=== PATIENT | male | born 1945 | race Caucasian/White ===

== ENCOUNTER → 2017-04-16 | Outpatient (CLI) | payer MEDICARE ==
--- NOTE | 2017-04-17 08:06 | XR ---
EXAMINATION TYPE: XR chest 2V DATE OF EXAM: 04/16/2017 COMPARISON: NONE TECHNIQUE: PA and lateral views submitted. HISTORY: COPD FINDINGS: Subsegmental changes at the left lung base. No pneumothorax or overt failure. Hypertrophic and degene rative change of the spine. IMPRESSION: 1. Left basilar linear atelectasis favored over infiltrate.
== END | disposition home or self-care (01) ==
LOC: RADXRYALE 10:41
PROVIDERS: ATTEND Family Medicine
DX: J98.11 Atelectasis (principal)
CPT/HCPCS: 71020

== ENCOUNTER → 2017-11-02 | Outpatient (CLI) | payer MEDICARE ==
[2017-11-02 13:08] LABS: Blood Urea Nitrogen 20 mg/dL (9-20)
--- NOTE | 2017-11-02 15:06 | CT ---
EXAMINATION TYPE: CT abdomen pelvis w con DATE OF EXAM: 11/02/2017 COMPARISON: NONE HISTORY: Retroperitoneal bleeding and hemoperitoneum per order. CT DLP: 1492 mGycm, Automated Exposure Control for Dose Reduction was Utilized. CONTRAST: CT scan of the abdomen and pelvis is performed with oral and with IV Contrast, patient injected with 100 mL of Omnipaque 300. FINDINGS: LUNG BASES: There is emphysematous change in both bases. There is oligemia or diminished vascular per fusion posterior left lung base. There is herniated lung laterally intercostal space axial image 10. LIVER/GB: No significant abnormality is appreciated. PANCREAS: No significant abnormality is seen. SPLEEN: No significant abnormality is seen. ADRENALS: No significant abnormality is seen. KIDNEYS: No significant abnormality is seen. BOWEL: There is small hiatal hernia. The oral contrast reaches level of distal ileum. There is no emerald picious small or large bowel dilatation. Normal-appearing appendix is seen inferiorly from cecum. The re is some prominence of fecal material in the right and proximal transverse colon. There are diverti cula in the sigmoid colon without CT evidence for acute diverticulitis. There is some prominence of f ecal material in the rectum. PROSTATE/SEMINAL VESICLES: Prostate gland is upper limits of normal size bulging on bladder base, cor relate for underlying BPH. LYMPH NODES: No greater than 1cm abdominal or pelvic lymph nodes are appreciated. OSSEOUS STRUCTURES: Underlying scoliosis is present. There is moderate to severe multilevel spurring in the thoracolumbar spine. There is multilevel vacuum disc phenomenon and disc space narrowing. Ther e is grade 1 anterolisthesis L4 on L5. OTHER: There is small sized fat-containing left inguinal hernia. There is mild to moderate calcified atherosclerotic change of the infrarenal abdominal aorta extending into iliac branch vessels. IMPRESSION: No suspicious fluid collection to suggest hematoma is identified.
== END | disposition home or self-care (01) ==
LOC: RADCTMAIN 12:26
PROVIDERS: ATTEND Internal Medicine Sleep Medicine
DX: K66.1 Hemoperitoneum (principal)
CPT/HCPCS: 82565; 84520; 74177; 36415; Q9967

== ENCOUNTER → 2017-11-12 | Outpatient (CLI) | payer MEDICARE ==
--- NOTE | 2017-11-12 10:02 | ECHOF ---
Referral Reason:SOB R06.02,R0782 Intercostal Pain,I10 Hypertension MEASUREMENTS -------- HEIGHT: 175.3 cm WEIGHT: 91.6 kg BP: 114/58 IVSd: 1.2 cm (0.6 - 1.1) LVIDd: 4.2 cm (3.9 - 5.3) LVPWd: 1.0 cm (0.6 - 1.1) IVSs: 1.7 cm LVIDs: 2.3 cm LVPWs: 1.7 cm IVSd: 3.4 cm (0.6 - 1.1) Ao Diam: 3.4 cm (2.0 - 3.7) AV Cusp: 2.1 cm (1.5 - 2.6) LA Diam: 3.9 cm (2.7 - 3.8) MV EXCURSION: 18.395 mm (> 18.000) MV EF SLOPE: 128 mm/s (70 - 150) EPSS: 0.3 cm MV E Zev: 0.55 m/s MV DecT: 192 ms MV A Zev: 0.77 m/s MV E/A Ratio: 0.72 RAP: 5.00 mmHg RVSP: 16.18 mmHg FINDINGS -------- Sinus rhythm. This was a technically good study. The left ventricular size is normal. There is borderline concentric left ventricular hypertrophy. Overall left ventricular systolic function is normal with, an EF between 55 - 60 %. The right ventricle is normal in size and function. The left atrium is normal in size. The right atrium is normal in size. Aortic valve is trileaflet and is mildly thickened. The mitral valve leaflets are mildly thickened. There is trace mitral regurgitation. Trace tricuspid regurgitation present. The right ventricular systolic pressure, as measured by Dopp ler, is 16.18mmHg. Pulmonic valve appears structurally normal. The aortic root size is normal. The pericardium is normal. CONCLUSIONS -------- 1. Sinus rhythm. 2. This was a technically good study. 3. The left ventricular size is normal. 4. There is borderline concentric left ventricular hypertrophy. 5. Overall left ventricular systolic function is normal with, an EF between 55 - 60 %. 6. The right ventricle is normal in size and function. 7. The left atrium is normal in size. 8. The right atrium is normal in size. 9. Aortic valve is trileaflet and is mildly thickened. 10. The mitral valve leaflets are mildly thickened. 11. There is trace mitral regurgitation. 12. Trace tricuspid regurgitation present. 13. The right ventricular systolic pressure, as measured by Doppler, is 16.18mmHg. 14. Pulmonic valve appears structurally normal. 15. The aortic root size is normal. 16. The pericardium is normal. [employer]ORE MANAGER: Estefania Kowalski RDCS
== END | disposition home or self-care (01) ==
LOC: RADECHMAIN 08:14
PROVIDERS: ATTEND Family Medicine
DX: I08.0 Rheumatic disorders of both mitral and aortic valves (principal); I10 Essential (primary) hypertension
CPT/HCPCS: 93306

== ENCOUNTER → 2017-11-16 | Outpatient (CLI) | payer MEDICARE ==
--- NOTE | 2017-11-16 15:54 | XR ---
EXAMINATION TYPE: XR ribs LT w pa chest xray DATE OF EXAM: 11/16/2017 COMPARISON: NONE HISTORY: Lower left rib pain TECHNIQUE: Frontal view of the chest and 4 views of the left ribs submitted FINDINGS: Hyperinflation noted correlate for COPD. There is a vague area of nodularity in the left lo wer lobe. No overt failure. No sizable pneumothorax. Rib cage appears intact. Hypertrophic and degenerative change of the spine. IMPRESSION: 1. No acute displaced rib fracture 2. CT of the chest recommended for area of nodular density left lower lobe.
== END | disposition home or self-care (01) ==
LOC: RADXRYALE 15:37
PROVIDERS: ATTEND Family Medicine
DX: R91.1 Solitary pulmonary nodule (principal); R07.82 Intercostal pain

== ENCOUNTER 2017-11-18 11:48 | Inpatient (IN) | payer MEDICARE ==
[2017-11-18] MEDS ORDERED: SODIUM CHLORIDE 0.9% 1,000 ML IV STA (11:58)
[2017-11-18] MEDS ORDERED: ALBUTEROL NEBULIZED 2.5 MG/3 ML INHALATION STA (11:58)
[2017-11-18] MEDS ORDERED: methylPREDNISolone SOD SUCCI 125 MG/2 ML VIAL IV STA (11:58)
[2017-11-18] MEDS ORDERED: SODIUM CHLORIDE 0.9% 500 ML IV STA (11:58)
[2017-11-18] MEDS ORDERED: IPRATROPIUM 0.5 MG/2.5 ML NEBU INHALATION STA (11:58)
[2017-11-18] MEDS ORDERED: MORPHINE SULFATE 2 MG/ML SYRINGE IVP ONE ×2 (12:12→15:25)
[2017-11-18] MEDS ORDERED: RX INFO: IV CONTRAST WAS GIVEN 1 EACH MISC MISCELLANE PRN (12:17)
--- NOTE | 2017-11-18 12:21 | XR ---
EXAMINATION TYPE: XR chest 1V portable DATE OF EXAM: 11/18/2017 HISTORY: Pain. REFERENCE: NONE. FINDINGS: The heart is mildly prominent. Is atelectatic change at the lung bases. Pleural spaces are clear. IMPRESSION: 1. MILD CARDIOMEGALY. 2. BIBASILAR ATELECTASIS.
[2017-11-18 12:24] LABS: Basophils % (A) 1 %; Eosinophils # (A) 0.3 k/uL (0-0.7); Eosinophils % (A) 4 %; HCT 42.7 % (39.0-53.0); HGB 14.1 gm/dL (13.0-17.5); Lymphocytes # (A) 1.1 k/uL (1.0-4.8); Lymphocytes % (A) 13 %; MCH 30.2 pg (25.0-35.0); MCV 91.4 fL (80.0-100.0); Monocytes # (A) 0.5 k/uL (0-1.0); Monocytes % (A) 6 %; Neutrophils # (A) 6.4 k/uL (1.3-7.7); Neutrophils % (A) 74 %; Platelet Count 400 k/uL (150-450); RBC 4.67 m/uL (4.30-5.90); RDW 13.7 % (11.5-15.5); WBC 8.6 k/uL (3.8-10.6)
[2017-11-18 12:31] LABS: Partial Thromboplastin Time 24.9 sec (22.0-30.0); Prothrombin Time 9.8 sec (9.0-12.0)
[2017-11-18 12:36] LABS: Albumin 3.7 g/dL (3.5-5.0); Anion Gap 11 mmol/L; Calcium 9.6 mg/dL (8.4-10.2); Carbon Dioxide 23 mmol/L (22-30); Chloride 104 mmol/L (98-107); Glucose 101 mg/dL (74-99); Sodium 138 mmol/L (137-145); Total Bilirubin 0.7 mg/dL (0.2-1.3); Total Protein 6.6 g/dL (6.3-8.2)
[2017-11-18 12:39] LABS: ALT 50 U/L (21-72); AST 40 U/L (17-59); Alkaline Phosphatase 66 U/L (38-126); Blood Urea Nitrogen 14 mg/dL (9-20); Potassium 4.7 mmol/L (3.5-5.1)
[2017-11-18 12:51] LABS: Creatine Kinase 73 U/L (55-170)
[2017-11-18 13:04] LABS: Creatine Kinase MB 1.6 ng/mL (0.0-2.4); Troponin I <0.012 ng/mL (0.000-0.034)
--- NOTE | 2017-11-18 13:04 | ED ---
General Adult HPI - General Chief complaint: Shortness of Breath Stated complaint: Sob Time Seen by Provider: 11/18/17 11:57 Source: patient, family, RN notes reviewed, old records reviewed Mode of arrival: wheelchair Limitations: no limitations - History of Present Illness Initial comments: This is a 72-year-old male the ER for evaluation of shortness of breath, pain chest pain left-sided flank pain. Patient has been history of COPD. History of lung disease. Patient coming to ER today for evaluation regards to cough congestion shortness of breath and pain. Patient has had multiple ER visits and outpatient evaluations in regards this pain as of recent with no found diagnosis. Patient and states patient's or significantly increasing and progressively worsening. Denies fever denies chest pain - Related Data Home Medications Medication Instructions Recorded Confirmed Albuterol Inhaler [Ventolin Hfa 2 puff INHALATION RT-Q6H PRN 11/18/17 11/18/17 Inhaler] Budesonide [Pulmicort] 0.5 mg INHALATION RT-BID 11/18/17 11/18/17 Finasteride [Proscar] 5 mg PO HS 11/18/17 11/18/17 HYDROcodone/APAP 10-325MG [[place] 1 tab PO QID PRN 11/18/17 11/18/17 10-325] Indapamide [Lozol] 1.25 mg PO DAILY 11/18/17 11/18/17 Ipratropium-Albuterol Nebulize 3 ml INHALATION RT-QID 11/18/17 11/18/17 [Duoneb 0.5 mg-3 mg/3 ml Soln] LORazepam [Ativan] 0.5 mg PO HS 11/18/17 11/18/17 Lisinopril [Zestril] 10 mg PO DAILY 11/18/17 11/18/17 Lovastatin [Mevacor] 10 mg PO HS 11/18/17 11/18/17 Meclizine [Antivert] 25 mg PO DAILY 11/18/17 11/18/17 Meloxicam [Mobic] 15 mg PO DAILY PRN 11/18/17 11/18/17 Montelukast [Singulair] 10 mg PO HS 11/18/17 11/18/17 Omeprazole 20 mg PO DAILY 11/18/17 11/18/17 Tamsulosin HCl [Flomax] 0.4 mg PO HS 11/18/17 11/18/17 Allergies Allergy/AdvReac Type Severity Reaction Status Date / Time No Known Allergies Allergy Verified 11/18/17 12:37 Review of Systems ROS Statement: Those systems with pertinent positive or pertinent negative responses have been documented in the HPI. ROS Other: All systems not noted in ROS Statement are negative. Past Medical History Past Medical History: COPD, Hearing Disorder / Deafness, Hyperlipidemia, Hypertension, Prostate Disorder Additional Past Medical History / Comment(s): emphysema, menieres disease History of Any Multi-Drug Resistant Organisms: None Reported Past Surgical History: Hernia Repair, Tonsillectomy Additional Past Surgical History / Comment(s): hernia X2, cyst on hand, right foot Past Psychological History: No Psychological Hx Reported Smoking Status: Former smoker Past Alcohol Use History: None Reported Past Drug Use History: None Reported General Exam Limitations: no limitations Course Vital Signs 11/18/17 11/18/17 11/18/17 11:51 12:30 12:53 Temperature 99.0 F Pulse Rate 91 73 77 Respiratory 18 Rate Blood Pressure 170/77 O2 Sat by Pulse 92 L Oximetry 11/18/17 11/18/17 11/18/17 12:55 14:00 15:41 Temperature Pulse Rate 84 84 86 Respiratory 16 16 16 Rate Blood Pressure 155/80 160/94 143/91 O2 Sat by Pulse 95 95 92 L Oximetry - Reevaluation(s) Reevaluation #1: 11/18/17 13:03 Multiple records are reviewed patient's prior imaging, including CT, echo, CT abdomen pelvis, etc. Reevaluation #2: 11/18/17 15:49 Patient does have initial evaluation by general surgery who thinks this is a cardiothoracic surgery case did speak with Dr. Dumont, will value patient in the morning EKG Findings - EKG Comments: EKG Findings:: EKG shows sinus rhythm rate of 81, AK 140, QRS 92, QTc 448 Medical Decision Making - Medical Decision Making 69 female the ER for evaluation of abdominal pain. Positive diaphragmatic hernia. Patient be admitted for cardiac and cardiothoracic surgery evaluation - Lab Data Result diagrams: 11/18/17 12:10 11/18/17 12:10 Lab Results 11/18/17 11/18/17 11/18/17 Range/Units 12:10 12:10 12:10 WBC 8.6 (3.8-10.6) k/uL RBC 4.67 (4.30-5.90) m/uL Hgb 14.1 (13.0-17.5) gm/dL Hct 42.7 (39.0-53.0) % MCV 91.4 (80.0-100.0) fL MCH 30.2 (25.0-35.0) pg MCHC 33.0 (31.0-37.0) g/dL RDW 13.7 (11.5-15.5) % Plt Count 400 (150-450) k/uL Neutrophils % 74 % Lymphocytes % 13 % Monocytes % 6 % Eosinophils % 4 % Basophils % 1 % Neutrophils # 6.4 (1.3-7.7) k/uL Lymphocytes # 1.1 (1.0-4.8) k/uL Monocytes # 0.5 (0-1.0) k/uL Eosinophils # 0.3 (0-0.7) k/uL Basophils # 0.0 (0-0.2) k/uL PT (9.0-12.0) sec INR (<1.2) APTT (22.0-30.0) sec Sodium 138 (137-145) mmol/L Potassium 4.7 (3.5-5.1) mmol/L Chloride 104 (98-107) mmol/L Carbon Dioxide 23 (22-30) mmol/L Anion Gap 11 mmol/L BUN 14 (9-20) mg/dL Creatinine 0.80 (0.66-1.25) mg/dL Est GFR (MDRD) Af Amer >60 (>60 ml/min/1.73 sqM) Est GFR (MDRD) Non-Af >60 (>60 ml/min/1.73 sqM) Glucose 101 H (74-99) mg/dL Calcium 9.6 (8.4-10.2) mg/dL Total Bilirubin 0.7 (0.2-1.3) mg/dL AST 40 (17-59) U/L ALT 50 (21-72) U/L Alkaline Phosphatase 66 (38-126) U/L Total Creatine Kinase 73 (55-170) U/L CK-MB (CK-2) 1.6 (0.0-2.4) ng/mL CK-MB (CK-2) Rel Index 2.2 Troponin I <0.012 (0.000-0.034) ng/mL Total Protein 6.6 (6.3-8.2) g/dL Albumin 3.7 (3.5-5.0) g/dL Influenza Type A RNA (Not Detectd) Influenza Type B (PCR) (Not Detectd) 11/18/17 11/18/17 Range/Units 12:10 12:10 WBC (3.8-10.6) k/uL RBC (4.30-5.90) m/uL Hgb (13.0-17.5) gm/dL Hct (39.0-53.0) % MCV (80.0-100.0) fL MCH (25.0-35.0) pg MCHC (31.0-37.0) g/dL RDW (11.5-15.5) % Plt Count (150-450) k/uL Neutrophils % % Lymphocytes % % Monocytes % % Eosinophils % % Basophils % % Neutrophils # (1.3-7.7) k/uL Lymphocytes # (1.0-4.8) k/uL Monocytes # (0-1.0) k/uL Eosinophils # (0-0.7) k/uL Basophils # (0-0.2) k/uL PT 9.8 (9.0-12.0) sec INR 1.0 (<1.2) APTT 24.9 (22.0-30.0) sec Sodium (137-145) mmol/L Potassium (3.5-5.1) mmol/L Chloride (98-107) mmol/L Carbon Dioxide (22-30) mmol/L Anion Gap mmol/L BUN (9-20) mg/dL Creatinine (0.66-1.25) mg/dL Est GFR (MDRD) Af Amer (>60 ml/min/1.73 sqM) Est GFR (MDRD) Non-Af (>60 ml/min/1.73 sqM) Glucose (74-99) mg/dL Calcium (8.4-10.2) mg/dL Total Bilirubin (0.2-1.3) mg/dL AST (17-59) U/L ALT (21-72) U/L Alkaline Phosphatase (38-126) U/L Total Creatine Kinase (55-170) U/L CK-MB (CK-2) (0.0-2.4) ng/mL CK-MB (CK-2) Rel Index Troponin I (0.000-0.034) ng/mL Total Protein (6.3-8.2) g/dL Albumin (3.5-5.0) g/dL Influenza Type A RNA Not Detected (Not Detectd) Influenza Type B (PCR) Not Detected (Not Detectd) - Radiology Data Radiology results: report reviewed (CT chest abdomen Pelvis is positive for hernia), image reviewed Disposition Clinical Impression: Diaphragmatic hernia, Acute exacerbation of chronic obstructive airways disease Disposition: ADMITTED IP TO THIS HOSP Condition: Fair Referrals: Matt Moss MD [Primary Care Provider] - 1-2 days
--- NOTE | 2017-11-18 14:22 | CT ---
EXAMINATION TYPE: CT ChestAbdPelvis w con DATE OF EXAM: 11/18/2017 COMPARISON: Previous study dated 11/02/2017 HISTORY: SOB/Lt lateral chest wall mass CT DLP: 1431.4 mGycm Automated exposure control for dose reduction was used. TECHNIQUE: Helical acquisition through the abdomen and pelvis was obtained without oral contrast but following the intravenous administration of 100 mL of Omnipaque 300. The data was formatted in the a xial, coronal and sagittal projections. FINDINGS: There are emphysematous changes throughout the lungs. There is diffuse, patchy groundglass opacity which may reflect ongoing alveolitis. There is atelectasis at the left lung base. There is a small amount of fluid loculated the left lung base. This represents an interval change. Th ere is no significant axillary, mediastinal or hilar adenopathy. There is no pericardial fluid. The h eart is not enlarged. Within the abdomen, the liver, spleen and gallbladder are normal. Both adrenal glands are normal. Both kidneys demonstrate function and appear morphologically normal. The pancreas is unremarkable. There is no significant retroperitoneal, iliac or inguinal adenopathy. The bladder is unremarkable. There is extensive diverticular change in the left side of the colon without radiographic evidence of diverticulitis. The appendix is normal. Small bowel loops are normal in caliber. There is a spiculated hernia in place on the left. There is large bowel peaking into this. There is s ome inflammatory change within the hernial space. This was not present with certainty on the previous study. There is no free fluid and no free air. There is degenerative disc disease, facet arthropathy and hypertrophic spondylosis within the spine. IMPRESSION: 1. LARGE SPICULATED HERNIA ON THE LEFT WITH LARGE BOWEL PEAKING INTO IT AND INFLAMMATORY CHANGES IN T HE CONTAINED MESENTERIC FAT. THIS IS AN INTERVAL CHANGE. 2. EMPHYSEMATOUS CHANGE THROUGHOUT THE LUNGS WITH PATCHY GROUNDGLASS OPACITY LIKELY REPRESENTING ONGO ING ALVEOLITIS. 3. UNCOMPLICATED DIVERTICULOSIS OF THE LEFT SIDE OF THE COLON. 4. INTERVAL DEVELOPMENT OF A SMALL LOCULATED FLUID COLLECTION IN THE LEFT PLEURAL SPACE. 5. DEGENERATIVE CHANGES WITHIN THE SPINE.
[2017-11-18] MEDS: MORPHINE SULFATE 2 MG/ML SYRINGE IVP PRN (15:37)
[2017-11-18] MEDS ORDERED: SODIUM CHLORIDE 0.9% 1,000 ML IV ONE (15:47)
[2017-11-18] MEDS ORDERED: IPRATROPIUM-ALBUTEROL 3 ML NEB INHALATION STA (15:48)
[2017-11-18 16:53] VITALS: BMI 29.1
[2017-11-18] MEDS: IPRATROPIUM-ALBUTEROL 3 ML NEB INHALATION SCH ×2 (17:02→21:08)
[2017-11-18] MEDS: BUDESONIDE 0.5 MG/2 ML NEBU INHALATION SCH (21:08)
[2017-11-18] MEDS: FAMOTIDINE 20 MG TAB PO SCH (21:58)
[2017-11-18] MEDS: FINASTERIDE 5 MG TAB PO SCH (21:58)
[2017-11-18] MEDS: TAMSULOSIN 0.4 MG CAP.ER.24H PO SCH (21:58)
[2017-11-18] MEDS: ATORVASTATIN 10 MG TAB PO SCH (21:58)
[2017-11-18] MEDS: MONTELUKAST 10 MG TAB PO SCH (21:58)
[2017-11-18] MEDS: BENZONATATE 100 MG CAP PO SCH (21:58)
[2017-11-18] MEDS: HEPARIN SODIUM,PORCINE 5,000 UNIT/ML 1 ML VIAL SQ SCH (21:59)
[2017-11-18] MEDS: LORazepam 0.5 MG TAB PO SCH (22:36)
[2017-11-18] MEDS: methylPREDNISolone SOD SUCCI 125 MG/2 ML VIAL IV SCH (23:47)
[2017-11-19] MEDS: IPRATROPIUM-ALBUTEROL 3 ML NEB INHALATION SCH ×7 (00:26→23:45)
--- NOTE | 2017-11-19 00:30 | P.GSCN ---
History of Present Illness Consult date: 11/18/17 Reason for Consult: Hernia History of present illness: This 72-year-old male with a long-standing history of emphysema COPD. He has a chronic cough. He stated he was coughing yesterday when he felt pain on his left side and increased shortness of breath. He then began to feel a mass on his left thorax and flank. This pain is exacerbated when taking a deep breath. He's never had this problem before. Past Medical History Past Medical History: COPD, Hearing Disorder / Deafness, Hyperlipidemia, Hypertension, Prostate Disorder Additional Past Medical History / Comment(s): emphysema, menieres disease History of Any Multi-Drug Resistant Organisms: None Reported Past Surgical History: Hernia Repair, Tonsillectomy Additional Past Surgical History / Comment(s): hernia X2, cyst on hand, right foot Past Anesthesia/Blood Transfusion Reactions: No Reported Reaction Past Psychological History: No Psychological Hx Reported Smoking Status: Former smoker Past Alcohol Use History: None Reported Past Drug Use History: None Reported Medications and Allergies Home Medications Medication Instructions Recorded Confirmed Type Albuterol Inhaler [Ventolin Hfa 2 puff INHALATION RT-Q6H PRN 11/18/17 11/18/17 History Inhaler] Benzonatate [Benzonatate [place]] 200 mg PO TID 11/18/17 11/18/17 History Budesonide [Pulmicort] 0.5 mg INHALATION RT-BID 11/18/17 11/18/17 History Finasteride [Proscar] 5 mg PO HS 11/18/17 11/18/17 History HYDROcodone/APAP 10-325MG [[place] 1 tab PO QID PRN 11/18/17 11/18/17 History 10-325] Indapamide [Lozol] 1.25 mg PO DAILY 11/18/17 11/18/17 History Ipratropium-Albuterol Nebulize 3 ml INHALATION RT-QID 11/18/17 11/18/17 History [Duoneb 0.5 mg-3 mg/3 ml Soln] LORazepam [Ativan] 0.5 mg PO HS 11/18/17 11/18/17 History Lisinopril [Zestril] 10 mg PO DAILY 11/18/17 11/18/17 History Lovastatin [Mevacor] 10 mg PO HS 11/18/17 11/18/17 History Meclizine [Antivert] 25 mg PO DAILY 11/18/17 11/18/17 History Meloxicam [Mobic] 15 mg PO DAILY PRN 11/18/17 11/18/17 History Montelukast [Singulair] 10 mg PO HS 11/18/17 11/18/17 History Omeprazole 20 mg PO DAILY 11/18/17 11/18/17 History Tamsulosin HCl [Flomax] 0.4 mg PO HS 11/18/17 11/18/17 History Allergies Allergy/AdvReac Type Severity Reaction Status Date / Time No Known Allergies Allergy Verified 11/18/17 12:37 Surgical - Exam Osteopathic Statement: *. No significant issues noted on an osteopathic structural exam other than those noted in the History and Physical/Consult. Vital Signs Temp Pulse Resp BP Pulse Ox 99.0 F 91 18 170/77 92 L 11/18/17 11:51 11/18/17 11:51 11/18/17 11:51 11/18/17 11:51 11/18/17 11:51 - General well developed, well nourished, no distress - Eyes PERRL - Neck trachea midline - Respiratory Nonlabored breathing, left chest wall with herniation. Tender to palpation. - Cardiovascular Rhythm: regular - Abdomen Abdomen: soft, non tender - Integumentary no rash - Neurologic normal coordination, normal sensation - Psychiatric oriented to time, oriented to person, oriented to place Results - Labs 11/18/17 12:10 11/18/17 12:10 Abnormal Lab Results - Last 24 Hours (Table) 11/18/17 Range/Units 12:10 Glucose 101 H (74-99) mg/dL Diabetes panel 11/18/17 Range/Units 12:10 Sodium 138 (137-145) mmol/L Potassium 4.7 (3.5-5.1) mmol/L Chloride 104 (98-107) mmol/L Carbon Dioxide 23 (22-30) mmol/L BUN 14 (9-20) mg/dL Creatinine 0.80 (0.66-1.25) mg/dL Glucose 101 H (74-99) mg/dL Calcium 9.6 (8.4-10.2) mg/dL AST 40 (17-59) U/L ALT 50 (21-72) U/L Alkaline Phosphatase 66 (38-126) U/L Total Protein 6.6 (6.3-8.2) g/dL Albumin 3.7 (3.5-5.0) g/dL Calcium panel 11/18/17 Range/Units 12:10 Calcium 9.6 (8.4-10.2) mg/dL Albumin 3.7 (3.5-5.0) g/dL Pituitary panel 11/18/17 Range/Units 12:10 Sodium 138 (137-145) mmol/L Potassium 4.7 (3.5-5.1) mmol/L Chloride 104 (98-107) mmol/L Carbon Dioxide 23 (22-30) mmol/L BUN 14 (9-20) mg/dL Creatinine 0.80 (0.66-1.25) mg/dL Glucose 101 H (74-99) mg/dL Calcium 9.6 (8.4-10.2) mg/dL Adrenal panel 11/18/17 Range/Units 12:10 Sodium 138 (137-145) mmol/L Potassium 4.7 (3.5-5.1) mmol/L Chloride 104 (98-107) mmol/L Carbon Dioxide 23 (22-30) mmol/L BUN 14 (9-20) mg/dL Creatinine 0.80 (0.66-1.25) mg/dL Glucose 101 H (74-99) mg/dL Calcium 9.6 (8.4-10.2) mg/dL Total Bilirubin 0.7 (0.2-1.3) mg/dL AST 40 (17-59) U/L ALT 50 (21-72) U/L Alkaline Phosphatase 66 (38-126) U/L Total Protein 6.6 (6.3-8.2) g/dL Albumin 3.7 (3.5-5.0) g/dL - Imaging CT scan - abdomen: report reviewed, image reviewed CT scan - chest: report reviewed, image reviewed CT scan - pelvis: report reviewed, image reviewed Assessment and Plan Assessment: Complex left posterior lateral diaphragmatic hernia with herniation of the left lower lobe of the lung Plan: No plans for acute surgical intervention per general surgery. Will defer to cardiothoracic surgery for further recommendations.
[2017-11-19] MEDS: MORPHINE SULFATE 2 MG/ML SYRINGE IVP PRN ×3 (01:19→20:35)
[2017-11-19] MEDS: LEVOFLOXACIN 500MG-D5W PMX 500 MG in DEXTROSE/WATER 1 100ML.BAG IVPB SCH (02:34)
[2017-11-19] MEDS: SODIUM CHLORIDE 0.9% 1,000 ML IV SCH ×2 (02:37→20:31)
[2017-11-19] MEDS: methylPREDNISolone SOD SUCCI 125 MG/2 ML VIAL IV SCH ×3 (05:37→17:25)
[2017-11-19] MEDS: BUDESONIDE 0.5 MG/2 ML NEBU INHALATION SCH ×2 (07:14→19:13)
--- NOTE | 2017-11-19 07:30 | CONS ---
CONSULTATION Sushant Amaral is a 72-year-old male with a history of asthma with COPD, who comes into the ER with left-sided chest pain. This has been going on since October 25 when he developed a cough. He has been on systemic steroids at least thrice in the last 3 to 4 months because of COPD with asthma with exacerbation. He has had multiple episodes of chest pain and subsequently came into the ED for further evaluation. He denies any fever, chills or riders, but has been having cough and dyspnea. PAST MEDICAL HISTORY: His past medical history is positive for severe asthma with COPD, Meniere's disease, tonsillectomy, previous hernia repair. SOCIAL HISTORY: Patient used to smoke cigarettes about a pack of cigarettes per day. He quit smoking and is not a current smoker at this time. He does not drink alcohol excessively. FAMILY HISTORY: Positive for asthma in his mother. MEDICATIONS: Medications prior to admission were lisinopril, Mevacor, Antivert, Mobic, Singulair, omeprazole, tamsulosin, albuterol, Pulmicort, Proscar, hydrocodone with acetaminophen, Lozol, and albuterol with ipratropium in the nebulizer. ALLERGIES: The patient has no known drug allergies, but is apparently allergic to MOLD on previous allergy testing. REVIEW OF SYSTEMS: Noncontributory. PHYSICAL EXAMINATION: On physical examination, patient is sitting in a chair. He is in no respiratory distress. He is somewhat anxious. His blood pressure is 156/77, respiratory rate is 16, pulse rate 79, temperature 98.1, O2 saturation on 2 L by nasal cannula is 96%. HEENT reveals pupils are equal. Chest reveals decreased breath sounds with prolonged expiration. No clear wheeze except on forced expiration. Cardiovascular system reveals an S1, S2. Abdomen is soft. There is no pedal edema. White count is 8.6 thousand,absolute eosinophil count is 0.3 thousand. Sodium 138, potassium 4.7, chloride 104, bicarb 23, BUN 14, creatinine of 0.8. Influenza A and B are negative. CT scan of the chest had been done in 2013, which showed a small hiatal hernia at that time. CT of the chest, abdomen, and pelvis done today on 11/18/2017 show evidence of emphysematous changes with some diffuse patchy ground-glass opacity. There is some atelectasis at the left base with a small amount of loculated fluid. There is also extensive diverticular change in the left side of the colon. There is a hiatal hernia in place on the left with some large bowel peaking into it with some inflammatory change within the hernial space. IMPRESSION AT THIS TIME: 1. Chest pain. The etiology which is unclear but may be related to inflammatory changes in the mesenteric fat in the large hiatal hernia area with some large bowel peaking into it. 2. Diverticulosis in the left side of the colon. 3. Small fluid collection in the left pleural space, which may be contributing to the pain. 4. Asthma with chronic obstructive pulmonary disease with acute exacerbation with a slightly elevated eosinophil count consistent with an eosinophilic phenotype along with the fact that the patient does have allergy to MOLD. At this point in time from a pulmonary standpoint, would keep the patient on IV steroids, aerosolized steroids, montelukast and bronchodilators. Would have the patient further evaluated by General Surgery as well as Cardiothoracic Surgery to further delineate if there are any surgical options for his hiatal hernia. Would keep him on GI and DVT prophylaxis. Depending on how he does, further changes to his care may need to be made. Because he has required frequent courses of steroids, he may be a candidate for [id number] treatment with Fasenra or anti IgE treatment with Xolair, which can be decided as an outpatient. Depending on how he does, he would require close outpatient followup. MMRICHAL / IJN: [id number] /
--- NOTE | 2017-11-19 08:30 | HP ---
HISTORY AND PHYSICAL DATE OF ADMISSION: 11/18/2017 CHIEF COMPLAINT: Shortness of breath and abdominal pain. HISTORY OF PRESENT ILLNESS: This 72-year-old gentleman with a past medical history of multiple medical problems including history of COPD, history of hearing deficit, hypertension, hyperlipidemia being followed by Dr. Gary in the outpatient setting, was complaining of increased shortness of breath and cough. The patient is complaining of left-sided abdominal pain. Patient had a CT scan of the chest, abdomen, pelvis,hernia with possible hiatal hernia was detected evaluation and treatment. The patient was seen by Dr. Kidd. The patient was seen by Dr. Moss in the outpatient setting. The patient is also to be seen by the cardiothoracic surgery as well. There is no history of fever, rigors or chills. No history of headache, loss of consciousness, seizures. PAST MEDICAL HISTORY: COPD, history of hearing deficit, and hypertension, hyperlipidemia, history of prostate disorder. MEDICATIONS: Home medications are: 1. Bentson 8 200 mg p.o. t.i.d. 2. Flomax 0.4 q.h.s. 3. Omeprazole 20 mg daily. 4. Singular 10 mg q.h.s. 5. Mobic 50 mg daily p.r.n. 6. Antivert 25 mg b.i.d. 7. Mevacor 20 mg q.h.s. 8. Zestril 10 mg b.i.d. 9. Ativan 0.5 mg q.h.s. 10.DuoNeb q.i.d. 11.Lozol 1.25 mg daily. 12.[place] 1 tablet q.i.d. p.r.n. 13.Proscar 5 mg q.h.s. 14.Pulmicort 0.5 mg b.i.d. 15.Ventolin HFA 2 puffs q.6h p.r.n. ALLERGIES: None. FAMILY HISTORY: No history of heart disease or strokes in family. SOCIAL HISTORY: Previous smoking. No history of current smoking or alcohol intake. REVIEW OF SYSTEMS: ENT: No diminished vision. No diminished hearing. Cardio system: No angina or palpitations. Respiration: As mentioned earlier. GI: As mentioned earlier. : No dysuria or hematuria. Nervous system: No numbness or weakness. Allergy/Immunology: No asthma or hayfever. Musculoskeletal: As mentioned earlier. HEMATOLOGY/ONCOLOGY: No history of anemia. Endocrine: No history of diabetes or hypothyroidism. Constitutional: As mentioned earlier. Rheumatology: Negative. Dermatology: Negative. Psychiatric: As mentioned earlier. PHYSICAL EXAMINATION: Alert and oriented x3. Pulse is 111. Blood pressure is 154/73, respirations 16 , temperature 97.4, pulse ox 92% on 2 L. HEENT: Conjunctivae normal. Oral mucosa moist. Neck is no jugular venous distention. No carotid bruit. No lymph node enlargement. Cardiovascular: S1-S2 muffled. Respiratory: Breath sounds diminished in the bases. Bilateral scattered rhonchi and crackles. Expiratory wheezing also present. ABDOMEN: Soft, obese, mild diffuse swelling and tenderness in the left lateral quadrant present. Bowel sounds present. No ascites. No other mass palpable. Legs: No edema and no swelling. NERVOUS SYSTEM: Higher functions as mentioned earlier. Moves all four limbs. No focal deficits. Lymphatics: No lymph nodes palpable in the neck, axillae or groin. SKIN: No ulcer, rash or bleeding. LABS: CBC within normal limits. Glucose 101. Flu is negative. ASSESSMENT: 1. Abdominal pain and swelling with possibly hernia with omentum in the colon with possible hiatal hernia. 2. Chronic obstructive pulmonary disease. 3. Acute purulent tracheobronchitis. 4. Hyperlipidemia. 5. Hypertension. 6. History of degenerative joint disease. 7. Meniere's disease. 8. History of hard of hearing. RECOMMENDATIONS AND DISCUSSION: In this 72-year-old gentleman who presented with multiple complex medical issues , we will monitor the patient closely. Continue the current mediations, management and symptomatic treatment. I would recommend bronchodilators, empiric antibiotics and I would also recommend surgical evaluation. Resume the home medications. DVT prophylaxis. Closely follow with multiple consultants. Prognosis guarded, which I discussed at length with the patient who understands and agrees. Further recommendations to follow. Copy of dictation forwarded to Dr. Gary who is the primary physician. EDUIN / LORY: [id number] / MTDD
[2017-11-19] MEDS: BENZONATATE 100 MG CAP PO SCH ×3 (08:43→20:30)
[2017-11-19] MEDS: FAMOTIDINE 20 MG TAB PO SCH ×2 (08:44→20:30)
[2017-11-19] MEDS: MECLIZINE 25 MG TAB PO SCH (08:44)
[2017-11-19] MEDS: PANTOPRAZOLE 40 MG TABLET PO SCH (08:45)
[2017-11-19] MEDS: HEPARIN SODIUM,PORCINE 5,000 UNIT/ML 1 ML VIAL SQ SCH ×2 (08:45→20:30)
[2017-11-19] MEDS: INDAPAMIDE 1.25 MG TAB PO SCH (08:50)
--- NOTE | 2017-11-19 09:02 | P.GSCN ---
History of Present Illness Consult date: 11/19/17 Reason for Consult: Diaphragmatic hernia, treatment recommendations. Requesting physician: Lu Avendano History of present illness: This 72-year-old gentleman who follows with Dr. Gary on an outpatient basis and has a previous medical history of COPD, previous tobacco dependence, hypertension, hyperlipidemia, prostate disorder, and 2 previous hernia repairs presented to the emergency department with complaints of shortness of breath, pre-syncope, and cough with productive barba sputum. Apparently he has had these symptoms off and on since with 2 hospitalizations for similar symptoms without a definitive diagnosis. He states he felt fine yesterday morning, was able to sit up and read his news paper without any distress, however he later laid down for a nap and when he woke up he was so short of breath he felt he needed to come back to the hospital. Chest x-ray was completed which demonstrated mild cardiomegaly and bibasilar atelectasis. The patient also complained of some abdominal pain and subsequently a computed tomography scan of the chest/abdomen/pelvis was completed. This demonstrated a large spiculated hernia on the left with large bowel peeking into it and inflammatory changes in the contained mesenteric fat, emphysematous changes throughout the lungs with patchy ground-glass opacity, uncomplicated diverticulosis, and small loculated fluid collection in the left pleural space. General surgery was consulted who did not feel this required immediate surgical intervention, and subsequently they deferred to cardiothoracic surgery. Cardiothoracic surgery was consulted regarding treatment recommendations. Review of Systems 14 point review of systems was completed and was negative except as noted. - Cardiovascular Reports as per HPI, Reports decreased exercise tolerance, Reports dyspnea on exertion, Reports high blood pressure, Reports lightheadedness, Reports shortness of breath - Respiratory Reports as per HPI, Reports cough with sputum, Reports dyspnea, Reports pain - Gastrointestinal Reports as per HPI, Reports abdominal pain Past Medical History Past Medical History: COPD, Hearing Disorder / Deafness, Hyperlipidemia, Hypertension, Prostate Disorder Additional Past Medical History / Comment(s): emphysema, menieres disease History of Any Multi-Drug Resistant Organisms: None Reported Past Surgical History: Hernia Repair, Tonsillectomy Additional Past Surgical History / Comment(s): hernia X2, cyst on hand, right foot Past Anesthesia/Blood Transfusion Reactions: No Reported Reaction Past Psychological History: No Psychological Hx Reported Smoking Status: Former smoker Past Alcohol Use History: None Reported Past Drug Use History: None Reported Medications and Allergies Home Medications Medication Instructions Recorded Confirmed Type Albuterol Inhaler [Ventolin Hfa 2 puff INHALATION RT-Q6H PRN 11/18/17 11/18/17 History Inhaler] Benzonatate [Benzonatate Perle] 200 mg PO TID 11/18/17 11/18/17 History Budesonide [Pulmicort] 0.5 mg INHALATION RT-BID 11/18/17 11/18/17 History Finasteride [Proscar] 5 mg PO HS 11/18/17 11/18/17 History HYDROcodone/APAP 10-325MG [[place]cer 1 tab PO QID PRN 11/18/17 11/18/17 History 10-325] Indapamide [Lozol] 1.25 mg PO DAILY 11/18/17 11/18/17 History Ipratropium-Albuterol Nebulize 3 ml INHALATION RT-QID 11/18/17 11/18/17 History [Duoneb 0.5 mg-3 mg/3 ml Soln] LORazepam [Ativan] 0.5 mg PO HS 11/18/17 11/18/17 History Lisinopril [Zestril] 10 mg PO DAILY 11/18/17 11/18/17 History Lovastatin [Mevacor] 10 mg PO HS 11/18/17 11/18/17 History Meclizine [Antivert] 25 mg PO DAILY 11/18/17 11/18/17 History Meloxicam [Mobic] 15 mg PO DAILY PRN 11/18/17 11/18/17 History Montelukast [Singulair] 10 mg PO HS 11/18/17 11/18/17 History Omeprazole 20 mg PO DAILY 11/18/17 11/18/17 History Tamsulosin HCl [Flomax] 0.4 mg PO HS 11/18/17 11/18/17 History Allergies Allergy/AdvReac Type Severity Reaction Status Date / Time No Known Allergies Allergy Verified 11/18/17 12:37 Surgical - Exam Vital Signs Temp Pulse Resp BP Pulse Ox 99.0 F 91 18 170/77 92 L 11/18/17 11:51 11/18/17 11:51 11/18/17 11:51 11/18/17 11:51 11/18/17 11:51 - General well developed, well nourished, no distress, no pain - Eyes PERRL, normal ocular movement - ENT decreased hearing - Neck no masses, no bruits, trachea midline - Respiratory Lungs sounds diminished bilaterally. Respirations even, nonlabored. Currently on room air with oxygen saturation 95%. - Cardiovascular S1, S2 present. Regular rate and rhythm. Palpable peripheral pulses bilaterally. No edema present. No calf pain or tenderness noted. - Abdomen Abdomen: soft, non tender, bowel sounds - Genitourinary Deferred - Rectum Deferred - Integumentary no rash, no growths - Neurologic normal coordination, normal sensation - Musculoskeletal normal gait, normal posture - Psychiatric oriented to time, oriented to person, oriented to place, speech is normal, memory intact Results - Labs 11/18/17 12:10 11/18/17 12:10 Abnormal Lab Results - Last 24 Hours (Table) 11/18/17 Range/Units 12:10 Glucose 101 H (74-99) mg/dL Diabetes panel 11/18/17 Range/Units 12:10 Sodium 138 (137-145) mmol/L Potassium 4.7 (3.5-5.1) mmol/L Chloride 104 (98-107) mmol/L Carbon Dioxide 23 (22-30) mmol/L BUN 14 (9-20) mg/dL Creatinine 0.80 (0.66-1.25) mg/dL Glucose 101 H (74-99) mg/dL Calcium 9.6 (8.4-10.2) mg/dL AST 40 (17-59) U/L ALT 50 (21-72) U/L Alkaline Phosphatase 66 (38-126) U/L Total Protein 6.6 (6.3-8.2) g/dL Albumin 3.7 (3.5-5.0) g/dL Calcium panel 11/18/17 Range/Units 12:10 Calcium 9.6 (8.4-10.2) mg/dL Albumin 3.7 (3.5-5.0) g/dL Pituitary panel 11/18/17 Range/Units 12:10 Sodium 138 (137-145) mmol/L Potassium 4.7 (3.5-5.1) mmol/L Chloride 104 (98-107) mmol/L Carbon Dioxide 23 (22-30) mmol/L BUN 14 (9-20) mg/dL Creatinine 0.80 (0.66-1.25) mg/dL Glucose 101 H (74-99) mg/dL Calcium 9.6 (8.4-10.2) mg/dL Adrenal panel 11/18/17 Range/Units 12:10 Sodium 138 (137-145) mmol/L Potassium 4.7 (3.5-5.1) mmol/L Chloride 104 (98-107) mmol/L Carbon Dioxide 23 (22-30) mmol/L BUN 14 (9-20) mg/dL Creatinine 0.80 (0.66-1.25) mg/dL Glucose 101 H (74-99) mg/dL Calcium 9.6 (8.4-10.2) mg/dL Total Bilirubin 0.7 (0.2-1.3) mg/dL AST 40 (17-59) U/L ALT 50 (21-72) U/L Alkaline Phosphatase 66 (38-126) U/L Total Protein 6.6 (6.3-8.2) g/dL Albumin 3.7 (3.5-5.0) g/dL - Imaging Chest x-ray: report reviewed, image reviewed CT scan - abdomen: report reviewed, image reviewed CT scan - chest: report reviewed, image reviewed CT scan - pelvis: report reviewed, image reviewed EKG: image reviewed Assessment and Plan (1) Hypertension Current Visit: Yes Status: Chronic Code(s): I10 - ESSENTIAL (PRIMARY) HYPERTENSION SNOMED Code(s): 10103061 (2) Hyperlipidemia Current Visit: Yes Status: Chronic Code(s): E78.5 - HYPERLIPIDEMIA, UNSPECIFIED SNOMED Code(s): 66389742 (3) Prostate disorder Current Visit: Yes Status: Chronic Code(s): N42.9 - DISORDER OF PROSTATE, UNSPECIFIED SNOMED Code(s): 11766262 (4) Tobacco dependence in remission Current Visit: No Status: Resolved Code(s): F17.201 - NICOTINE DEPENDENCE, UNSPECIFIED, IN REMISSION SNOMED Code(s): 290896305 (5) History of hernia repair Current Visit: No Status: Resolved Code(s): Z98.890 - OTHER SPECIFIED POSTPROCEDURAL STATES; Z87.19 - PERSONAL HISTORY OF OTHER DISEASES OF THE DIGESTIVE SYSTEM SNOMED Code(s): 10344180100465 (6) Acute exacerbation of chronic obstructive airways disease Current Visit: Yes Status: Acute Code(s): J44.1 - CHRONIC OBSTRUCTIVE PULMONARY DISEASE W (ACUTE) EXACERBATION SNOMED Code(s): 043468991 (7) Diaphragmatic hernia Current Visit: Yes Status: Acute Code(s): K44.9 - DIAPHRAGMATIC HERNIA WITHOUT OBSTRUCTION OR GANGRENE SNOMED Code(s): 86905975 Plan: The patient was seen and examined at the bedside. His chart/diagnostics reviewed. Case will be discussed with Dr. Avila. Patient is currently ambulating without difficulty. Continue medical management per primary care service. Antibiotics, steroids, bronchodilators per pulmonology. GI/DVT prophylaxis. Recommendations to follow. Thank you Dr. Avendano for this consult. We look forward to working with you in the care of your patient Time with Patient: Greater than 30
--- NOTE | 2017-11-19 10:15 | P.CNPUL ---
History of Present Illness Consult date: 11/19/17 Reason for consult: cough, chest pain, COPD Chief complaint: Left-sided chest wall pain cough congestion shortness of breath and wheezin History of present illness: Patient has been having severe left thoracic wall pain advise to be presented to the emergency department with complaints of shortness of breath, pre-syncope , and cough with productive barba sputum. Apparently he has had these symptoms off and on since [place] with 2 hospitalizations for similar symptoms without a definitive diagnosis. He states he felt fine yesterday morning, was able to sit up and read his news paper without any distress, however he later laid down for a nap and when he woke up he was so short of breath he felt he needed to come back to the hospital. Chest x-ray was completed which demonstrated mild cardiomegaly and bibasilar atelectasis. The patient also complained of some abdominal pain and subsequently a computed tomography scan of the chest/abdomen/ pelvis was completed. This demonstrated a large spiculated hernia on the left with large bowel peeking into it and inflammatory changes in the contained mesenteric fat, emphysematous changes throughout the lungs with patchy ground- glass opacity, uncomplicated diverticulosis, and small loculated fluid collection in the left pleural space. Review of Systems All systems: negative Past Medical History Past Medical History: COPD, Hearing Disorder / Deafness, Hyperlipidemia, Hypertension, Prostate Disorder Additional Past Medical History / Comment(s): emphysema, menieres disease History of Any Multi-Drug Resistant Organisms: None Reported Past Surgical History: Hernia Repair, Tonsillectomy Additional Past Surgical History / Comment(s): hernia X2, cyst on hand, right foot Past Anesthesia/Blood Transfusion Reactions: No Reported Reaction Past Psychological History: No Psychological Hx Reported Smoking Status: Former smoker Past Alcohol Use History: None Reported Past Drug Use History: None Reported Medications and Allergies Home Medications Medication Instructions Recorded Confirmed Type Albuterol Inhaler [Ventolin Hfa 2 puff INHALATION RT-Q6H PRN 11/18/17 11/18/17 History Inhaler] Benzonatate [Benzonatate Perle] 200 mg PO TID 11/18/17 11/18/17 History Budesonide [Pulmicort] 0.5 mg INHALATION RT-BID 11/18/17 11/18/17 History Finasteride [Proscar] 5 mg PO HS 11/18/17 11/18/17 History HYDROcodone/APAP 10-325MG [[place] 1 tab PO QID PRN 11/18/17 11/18/17 History 10-325] Indapamide [Lozol] 1.25 mg PO DAILY 11/18/17 11/18/17 History Ipratropium-Albuterol Nebulize 3 ml INHALATION RT-QID 11/18/17 11/18/17 History [Duoneb 0.5 mg-3 mg/3 ml Soln] LORazepam [Ativan] 0.5 mg PO HS 11/18/17 11/18/17 History Lisinopril [Zestril] 10 mg PO DAILY 11/18/17 11/18/17 History Lovastatin [Mevacor] 10 mg PO HS 11/18/17 11/18/17 History Meclizine [Antivert] 25 mg PO DAILY 11/18/17 11/18/17 History Meloxicam [Mobic] 15 mg PO DAILY PRN 11/18/17 11/18/17 History Montelukast [Singulair] 10 mg PO HS 11/18/17 11/18/17 History Omeprazole 20 mg PO DAILY 11/18/17 11/18/17 History Tamsulosin HCl [Flomax] 0.4 mg PO HS 11/18/17 11/18/17 History Allergies Allergy/AdvReac Type Severity Reaction Status Date / Time No Known Allergies Allergy Verified 11/18/17 12:37 Physical Exam Vitals: Vital Signs Temp Pulse Pulse Resp BP BP Pulse Ox 11/19/17 07:29 106 H 11/19/17 07:17 98 11/19/17 07:00 98.4 F 53 L 16 151/86 95 11/19/17 04:24 100 11/19/17 04:14 96 11/19/17 03:43 97.7 F 96 16 136/78 95 11/19/17 00:38 108 H 11/19/17 00:26 104 H 11/18/17 21:28 111 H 11/18/17 21:10 111 H 11/18/17 20:02 97.4 F L 102 H 16 154/73 92 L 11/18/17 17:13 89 11/18/17 17:04 89 96 11/18/17 16:29 98.1 F 79 16 156/77 96 11/18/17 16:22 97.2 F L 89 16 164/91 95 11/18/17 15:41 86 16 143/91 92 L 11/18/17 14:00 84 16 160/94 95 11/18/17 12:55 84 16 155/80 95 11/18/17 12:53 77 11/18/17 12:30 73 11/18/17 11:51 99.0 F 91 18 170/77 92 L Intake and Output 11/18/17 11/19/17 11/19/17 22:59 06:59 14:59 Intake Total 300 0 Balance 300 0 Intake: Intake, IV Titration 300 Amount Sodium Chloride 0.9% 1, 300 000 ml @ 100 mls/hr IV . Q10H ONE Rx#:[id number] Oral 0 Other: Voiding Method Toilet Toilet Urinal Urinal # Voids 2 Weight 92.079 kg - General well developed, well nourished, no distress, no pain - Eyes PERRL, normal ocular movement - ENT decreased hearing - Neck no masses, no bruits, trachea midline - Respiratory Lungs sounds diminished bilaterally. Respirations even, nonlabored. Currently on room air with oxygen saturation 95%. - Cardiovascular S1, S2 present. Regular rate and rhythm. Palpable peripheral pulses bilaterally. No edema present. No calf pain or tenderness noted. - Abdomen Abdomen: soft, non tender, bowel sounds large ecchymosis bruising into the abdominal wall and lower thoracic wall seen previously have resolved - Genitourinary Deferred - Rectum Deferred - Integumentary no rash, no growths - Neurologic normal coordination, normal sensation - Musculoskeletal normal gait, normal posture - Psychiatric oriented to time, oriented to person, oriented to place, speech is normal, memory intact Results - Laboratory Findings CBC and BMP: 11/18/17 12:10 11/18/17 12:10 PT/INR, D-dimer PT 9.8 sec (9.0-12.0) 11/18/17 12:10 INR 1.0 (<1.2) 11/18/17 12:10 Abnormal lab findings: Abnormal Labs 11/18/17 12:10 Glucose 101 H - Diagnostic Findings CT scan - chest: report reviewed, image reviewed Assessment and Plan Assessment: Acute COPD exacerbation and purulent tracheobronchitis Left-sided diaphragmatic hernia appears to be acute Large left-sided bruising and ecchymosis is significantly improved Tracheobronchitis Left side small pleural effusion likely reactive Plan: Continue breathing treatments deep breathing exercise Management with morphine Antibiotics IV steroids Cardiothoracic evaluation if left diaphragmatic hernia requires treatment Time with Patient: Greater than 30
[2017-11-19 12:41] LABS: Glucose,Whole Blood 127 mg/dL (75-99)
[2017-11-19] MEDS ORDERED: ceFAZolin IN SWFI 2 GM/20 ML SYRINGE IVP ONE (15:30)
--- NOTE | 2017-11-19 16:18 | PN ---
PROGRESS NOTE DATE OF SERVICE: 11/19/2017 This 72-year-old gentleman with a past medical history admitted with spiculated hernia with bowel loops inside is being closely monitored. No chest pain. No palpitations. No fever. Patient complaining of upper abdominal pain. PHYSICAL EXAM: Alert and oriented x3. Pulse 53, blood pressure 151/80, respirations 16, temperature 98.4, pulse ox 94% on 2 L. HEENT conjunctivae normal. Neck: No jugular venous distention. Cardiovascular: S1, S2 muffled. Respiratory: Breath sounds diminished in the bases. A few scattered rhonchi and crackles. ABDOMEN: Soft. Otherwise minimal tenderness in the left upper quadrant and some swelling also present. Central nervous system: No focal deficits. LAB DATA: CBC within normal limits. Glucose 127. ASSESSMENT: 1. Left-sided abdominal pain and swelling with possibly spigelian hernia with omentum in the colon and possible hiatal hernia. 2. Diaphragmatic hernia. 3. Chronic obstructive pulmonary disease. 4. Acute purulent tracheobronchitis. 5. Hyperlipidemia. 6. Hypertension. 7. History of degenerative joint disease. 8. Meniere disease. 9. History of hard of hearing. DISCUSSION AND RECOMMENDATIONS: I recommend to continue current management. Symptomatic treatment. Continue monitoring. We will evaluate the patient closely with surgery and Cardiothoracic Surgery. Dr. Moss has evaluated the patient. Recommend repeat labs and continue to monitor. DVT prophylaxis. Further recommendations to follow. Resume the home medications. MMODL / IJN: [id number] /
[2017-11-19 16:43] LABS: Glucose,Whole Blood 116 mg/dL (75-99)
[2017-11-19] MEDS: INSULIN ASPART 100 UNIT/ML 1 ML 10 ML VIAL SQ SCH ×2 (18:39→21:23)
[2017-11-19] MEDS: TAMSULOSIN 0.4 MG CAP.ER.24H PO SCH (20:30)
[2017-11-19] MEDS: MONTELUKAST 10 MG TAB PO SCH (20:30)
[2017-11-19] MEDS: ATORVASTATIN 10 MG TAB PO SCH (20:30)
[2017-11-19] MEDS: FINASTERIDE 5 MG TAB PO SCH (20:30)
[2017-11-19 20:55] LABS: Glucose,Whole Blood 122 mg/dL (75-99)
[2017-11-19] MEDS: LORazepam 0.5 MG TAB PO SCH (22:01)
[2017-11-20] MEDS: methylPREDNISolone SOD SUCCI 125 MG/2 ML VIAL IV SCH ×3 (01:20→12:31)
[2017-11-20] MEDS: LEVOFLOXACIN 500MG-D5W PMX 500 MG in DEXTROSE/WATER 1 100ML.BAG IVPB SCH (01:20)
[2017-11-20] MEDS: IPRATROPIUM-ALBUTEROL 3 ML NEB INHALATION SCH ×6 (04:05→20:04)
[2017-11-20] MEDS: MORPHINE SULFATE 2 MG/ML SYRINGE IVP PRN ×3 (05:35→20:46)
[2017-11-20 06:40] LABS: Basophils % (A) 0 %; Eosinophils % (A) 0 %; HCT 41.6 % (39.0-53.0); HGB 13.7 gm/dL (13.0-17.5); Lymphocytes # (A) 0.5 k/uL (1.0-4.8); Lymphocytes % (A) 4 %; MCH 30.5 pg (25.0-35.0); MCHC 32.9 g/dL (31.0-37.0); MCV 92.6 fL (80.0-100.0); Mean Platelet Volume 7.3; Monocytes # (A) 0.5 k/uL (0-1.0); Monocytes % (A) 3 %; Neutrophils # (A) 13.8 k/uL (1.3-7.7); Neutrophils % (A) 92 %; Platelet Count 433 k/uL (150-450); RDW 13.9 % (11.5-15.5)
[2017-11-20 06:46] LABS: Glucose,Whole Blood 124 mg/dL (75-99)
[2017-11-20 06:48] LABS: Anion Gap 11 mmol/L; Blood Urea Nitrogen 18 mg/dL (9-20); Calcium 9.4 mg/dL (8.4-10.2); Carbon Dioxide 24 mmol/L (22-30); Chloride 104 mmol/L (98-107); Glucose 134 mg/dL (74-99); Sodium 139 mmol/L (137-145)
[2017-11-20] MEDS: INSULIN ASPART 100 UNIT/ML 1 ML 10 ML VIAL SQ SCH ×4 (08:16→20:11)
[2017-11-20] MEDS: BUDESONIDE 0.5 MG/2 ML NEBU INHALATION SCH ×2 (08:28→20:05)
[2017-11-20] MEDS: PANTOPRAZOLE 40 MG TABLET PO SCH (09:00)
[2017-11-20] MEDS: HEPARIN SODIUM,PORCINE 5,000 UNIT/ML 1 ML VIAL SQ SCH ×2 (09:00→19:57)
[2017-11-20] MEDS: FAMOTIDINE 20 MG TAB PO SCH (09:00)
[2017-11-20] MEDS: BENZONATATE 100 MG CAP PO SCH ×3 (09:00→19:56)
[2017-11-20] MEDS: INDAPAMIDE 1.25 MG TAB PO SCH (09:00)
[2017-11-20] MEDS: MECLIZINE 25 MG TAB PO SCH (09:01)
[2017-11-20 11:20] LABS: Glucose,Whole Blood 132 mg/dL (75-99)
--- NOTE | 2017-11-20 11:42 | P.PN ---
Subjective Progress Note Date: 11/20/17 Principal diagnosis: Diaphragmatic hernia. History of COPD, previous tobacco dependence, hypertension, hyperlipidemia, prostate disorder, previous hernia repairs. The patient is currently ambulating in the room in no acute distress. States he was able to sleep last night. States his pain is controlled on current medication regimen. Objective - Vital Signs Vital signs: Vital Signs Temp 97.2 F L 11/20/17 07:00 Pulse 104 H 11/20/17 08:39 Resp 16 11/20/17 07:00 BP 143/66 11/20/17 07:00 Pulse Ox 90 L 11/20/17 07:00 Intake & Output 11/19/17 11/20/17 11/20/17 18:59 06:59 18:59 Intake Total 800 550 Balance 800 550 Intake: IV 800 Sodium Chloride 0.9% 1, 800 000 ml @ 100 mls/hr IV . Q10H ONE Rx#:[id number] Intake, IV Titration 550 Amount Sodium Chloride 0.9% 1, 550 000 ml @ 50 mls/hr IV . Q20H LEANDRO Rx#:[id number] Other: Voiding Method Toilet Urinal - Constitutional General appearance: Present: cooperative, no acute distress - Respiratory Details: Lungs sounds diminished bilaterally. Respirations even, nonlabored. Currently on 2 L nasal cannula with oxygen saturation 96%. - Cardiovascular Details: S1, S2 present. Regular rate and rhythm. Palpable peripheral pulses. No edema present. No calf pain or tenderness noted. - Gastrointestinal Gastrointestinal Comment(s): Abdomen soft, nontender, nondistended. Active bowel sounds 4 quadrants. Tolerating diet. - Genitourinary Genitourinary Comment(s): Continues to void clear, yellow urine. - Integumentary Integumentary Comment(s): Skin warm, dry, pink with evidence of good perfusion. Slight ecchymotic area noted to left lateral abdomen. - Neurologic Neurologic: Present: CNII-XII intact - Musculoskeletal Musculoskeletal: Present: gait normal, strength equal bilaterally - Psychiatric Psychiatric: Present: A&O x's 3, appropriate affect, intact judgment & insight - Allied health notes Allied health notes reviewed: nursing - Labs CBC & Chem 7: 11/20/17 06:19 11/20/17 06:19 Labs: Abnormal Lab Results - Last 24 Hours (Table) 0111/19/17 11/19/17 Range/Units 12:30 16:41 20:54 WBC (3.8-10.6) k/uL Neutrophils # (1.3-7.7) k/uL Lymphocytes # (1.0-4.8) k/uL Glucose (74-99) mg/dL POC Glucose (mg/dL) 127 H 116 H 122 H (75-99) mg/dL 11/20/17 11/20/17 11/20/17 Range/Units 06:19 06:19 06:43 WBC 15.0 H (3.8-10.6) k/uL Neutrophils # 13.8 H (1.3-7.7) k/uL Lymphocytes # 0.5 L (1.0-4.8) k/uL Glucose 134 H (74-99) mg/dL POC Glucose (mg/dL) 124 H (75-99) mg/dL 11/20/17 Range/Units 11:18 WBC (3.8-10.6) k/uL Neutrophils # (1.3-7.7) k/uL Lymphocytes # (1.0-4.8) k/uL Glucose (74-99) mg/dL POC Glucose (mg/dL) 132 H (75-99) mg/dL Assessment and Plan (1) Hypertension Current Visit: Yes Status: Chronic Code(s): I10 - ESSENTIAL (PRIMARY) HYPERTENSION SNOMED Code(s): 97884343 (2) Hyperlipidemia Current Visit: Yes Status: Chronic Code(s): E78.5 - HYPERLIPIDEMIA, UNSPECIFIED SNOMED Code(s): 07331390 (3) Prostate disorder Current Visit: Yes Status: Chronic Code(s): N42.9 - DISORDER OF PROSTATE, UNSPECIFIED SNOMED Code(s): 47771946 (4) Tobacco dependence in remission Current Visit: No Status: Resolved Code(s): F17.201 - NICOTINE DEPENDENCE, UNSPECIFIED, IN REMISSION SNOMED Code(s): 613359979 (5) History of hernia repair Current Visit: No Status: Resolved Code(s): Z98.890 - OTHER SPECIFIED POSTPROCEDURAL STATES; Z87.19 - PERSONAL HISTORY OF OTHER DISEASES OF THE DIGESTIVE SYSTEM SNOMED Code(s): 83129795999644 (6) Acute exacerbation of chronic obstructive airways disease Current Visit: Yes Status: Acute Code(s): J44.1 - CHRONIC OBSTRUCTIVE PULMONARY DISEASE W (ACUTE) EXACERBATION SNOMED Code(s): 991863714 (7) Diaphragmatic hernia Current Visit: Yes Status: Acute Code(s): K44.9 - DIAPHRAGMATIC HERNIA WITHOUT OBSTRUCTION OR GANGRENE SNOMED Code(s): 47257223 Plan: 1. Plan is for OR on November 22 for repair of the left lung hernia with [place]-Supa patch by Dr. Avila. 2. Medical comorbidities to be managed by primary care service. 3. Antibiotics, steroids, bronchodilators per pulmonology. 4. Wean O2 as tolerated. Incentive spirometry ordered, encourage use. 5. Encourage continued smoking cessation. 6. GI/DVT prophylaxis. 7. Continue current pain medication regimen. 8. More recommendations to follow. Time with Patient: Greater than 30
--- NOTE | 2017-11-20 14:09 | P.PN ---
Subjective Progress Note Date: 11/20/17 Principal diagnosis: Large left-sided diaphragmatic hernia, COPD exacerbation, acute on chronic hypoxic respiratory failure 11/20/2017, patient seen and evaluated exam and cuff congestion shortness breath is improved he remains on high-dose IV steroids 60 mg every 6 and breathing treatments patient is currently doing deep breathing exercises incentive spirometry cardiothoracic surgery is planning for left diaphragmatic hernia repair on , patient would like to proceed with that Objective - Vital Signs Vital signs: Vital Signs Temp 97.2 F L 11/20/17 07:00 Pulse 100 11/20/17 12:36 Resp 16 11/20/17 07:00 BP 143/66 11/20/17 07:00 Pulse Ox 90 L 11/20/17 07:00 Intake & Output 11/19/17 11/20/17 11/20/17 18:59 06:59 18:59 Intake Total 800 550 Balance 800 550 Intake: IV 800 Sodium Chloride 0.9% 1, 800 000 ml @ 100 mls/hr IV . Q10H [facility] Rx#:[id number] Intake, IV Titration 550 Amount Sodium Chloride 0.9% 1, 550 000 ml @ 50 mls/hr IV . Q20H [facility] Rx#:[id number] Other: Voiding Method Toilet Urinal - Exam - Constitutional General appearance: Present: cooperative, no acute distress - Respiratory Details: Lungs sounds diminished bilaterally. Respirations even, nonlabored. Currently on 2 L nasal cannula with oxygen saturation 96%. - Cardiovascular Details: S1, S2 present. Regular rate and rhythm. Palpable peripheral pulses. No edema present. No calf pain or tenderness noted. - Gastrointestinal Gastrointestinal Comment(s): Abdomen soft, nontender, nondistended. Active bowel sounds 4 quadrants. Tolerating diet. - Genitourinary Genitourinary Comment(s): Continues to void clear, yellow urine. - Integumentary Integumentary Comment(s): Skin warm, dry, pink with evidence of good perfusion. Slight ecchymotic area noted to left lateral abdomen. - Neurologic Neurologic: Present: CNII-XII intact - Musculoskeletal Musculoskeletal: Present: gait normal, strength equal bilaterally - Psychiatric Psychiatric: Present: A&O x's 3, appropriate affect, intact judgment & insight - Labs CBC & Chem 7: 11/20/17 06:19 01/23/18 06:19 Labs: Abnormal Lab Results - Last 24 Hours (Table) 11/19/17 11/19/17 11/20/17 Range/Units 16:41 20:54 06:19 WBC 15.0 H (3.8-10.6) k/uL Neutrophils # 13.8 H (1.3-7.7) k/uL Lymphocytes # 0.5 L (1.0-4.8) k/uL Glucose (74-99) mg/dL POC Glucose (mg/dL) 116 H 122 H (75-99) mg/dL 11/20/17 11/20/17 11/20/17 Range/Units 06:19 06:43 11:18 WBC (3.8-10.6) k/uL Neutrophils # (1.3-7.7) k/uL Lymphocytes # (1.0-4.8) k/uL Glucose 134 H (74-99) mg/dL POC Glucose (mg/dL) 124 H 132 H (75-99) mg/dL Assessment and Plan Assessment: Acute COPD exacerbation and purulent tracheobronchitis Left-sided diaphragmatic hernia appears to be acute Large left-sided bruising and ecchymosis is significantly improved Tracheobronchitis Left side small pleural effusion likely reactive Plan: Continue breathing treatments deep breathing exercise Management with morphine Antibiotics IV steroids Cardiothoracic evaluation results and reports reviewed patient is for left diaphragmatic hernia repair on Time with Patient: Greater than 30
--- NOTE | 2017-11-20 16:40 | PN ---
PROGRESS NOTE DATE OF SERVICE: 11/20/2017. INTERVAL HISTORY: This 72-year-old gentleman admitted with abdominal pain had diaphragmatic hernia as well as possible spigelian hernia. No chest pain. No palpitations. No fever. EXAM: Alert and oriented times three. Pulse 102, blood pressure 149/81, respiration 16, temperature 98.1, pulse ox 94% on room air. HEENT: Conjunctivae normal. Neck: No jugular venous distention. CARDIOVASCULAR: S1, S2 muffled. RESPIRATORY: Breath sounds diminished in the bases. A few scattered rhonchi and crackles. Abdomen is soft. Left sided abdominal pain and swelling also present. Nervous system: No focal deficits. LABS: WBC 15, hemoglobin 13.7. ASSESSMENT: 1. 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 2. Diaphragmatic hernia with lung herniation. 3. Chronic obstructive pulmonary disease. 4. Acute purulent tracheobronchitis. 5. Hyperlipidemia. 6. Hypertension. 7. Degenerative joint disease. 8. Meniere's disease. 9. Hard of hearing. RECOMMENDATIONS AND DISCUSSION: Recommend to continue current medications, management and symptomatic treatment. Closely follow with Pulmonary and as well as cardiovascular surgery, who is planning tentative surgery. Otherwise prognosis guarded. Further recommendations to follow. MMODL / IJN: [id number] /
[2017-11-20 17:26] LABS: Glucose,Whole Blood 132 mg/dL (75-99)
[2017-11-20] MEDS: FINASTERIDE 5 MG TAB PO SCH (19:56)
[2017-11-20] MEDS: methylPREDNISolone SOD SUCCI 40 MG/ML 1 ML VIAL IV SCH (19:56)
[2017-11-20] MEDS: ATORVASTATIN 10 MG TAB PO SCH (19:57)
[2017-11-20] MEDS: SODIUM CHLORIDE 0.9% 1,000 ML IV SCH (19:57)
[2017-11-20] MEDS: MONTELUKAST 10 MG TAB PO SCH (19:57)
[2017-11-20] MEDS: TAMSULOSIN 0.4 MG CAP.ER.24H PO SCH (19:57)
[2017-11-20 20:11] LABS: Glucose,Whole Blood 137 mg/dL (75-99)
[2017-11-20] MEDS: LORazepam 0.5 MG TAB PO SCH (21:24)
[2017-11-21] MEDS: LEVOFLOXACIN 500MG-D5W PMX 500 MG in DEXTROSE/WATER 1 100ML.BAG IVPB SCH (04:32)
[2017-11-21] MEDS: MORPHINE SULFATE 2 MG/ML SYRINGE IVP PRN ×3 (04:32→19:35)
[2017-11-21] MEDS: IPRATROPIUM-ALBUTEROL 3 ML NEB INHALATION PRN (06:15)
[2017-11-21 07:15] LABS: Glucose,Whole Blood 98 mg/dL (75-99)
[2017-11-21 08:12] LABS: Basophils % (A) 0 %; Eosinophils % (A) 0 %; HCT 42.2 % (39.0-53.0); HGB 13.7 gm/dL (13.0-17.5); Lymphocytes # (A) 0.8 k/uL (1.0-4.8); Lymphocytes % (A) 5 %; MCH 30.3 pg (25.0-35.0); MCHC 32.5 g/dL (31.0-37.0); MCV 93.3 fL (80.0-100.0); Mean Platelet Volume 6.6; Monocytes # (A) 0.9 k/uL (0-1.0); Monocytes % (A) 6 %; Neutrophils # (A) 13.6 k/uL (1.3-7.7); Neutrophils % (A) 88 %; Platelet Count 405 k/uL (150-450); RBC 4.53 m/uL (4.30-5.90); RDW 12.5 % (11.5-15.5); WBC 15.4 k/uL (3.8-10.6)
[2017-11-21] MEDS: IPRATROPIUM-ALBUTEROL 3 ML NEB INHALATION SCH ×4 (08:13→19:37)
[2017-11-21] MEDS: INSULIN ASPART 100 UNIT/ML 1 ML 10 ML VIAL SQ SCH ×4 (08:14→23:15)
[2017-11-21 08:26] LABS: Anion Gap 10 mmol/L; Blood Urea Nitrogen 23 mg/dL (9-20); Calcium 9.3 mg/dL (8.4-10.2); Carbon Dioxide 27 mmol/L (22-30); Chloride 102 mmol/L (98-107); Glucose 107 mg/dL (74-99); Sodium 139 mmol/L (137-145)
[2017-11-21] MEDS: BENZONATATE 100 MG CAP PO SCH ×3 (09:22→23:23)
[2017-11-21] MEDS: HEPARIN SODIUM,PORCINE 5,000 UNIT/ML 1 ML VIAL SQ SCH ×2 (09:22→23:13)
[2017-11-21] MEDS: methylPREDNISolone SOD SUCCI 40 MG/ML 1 ML VIAL IV SCH (09:22)
[2017-11-21] MEDS: PANTOPRAZOLE 40 MG TABLET PO SCH (09:23)
[2017-11-21] MEDS: INDAPAMIDE 1.25 MG TAB PO SCH (09:23)
[2017-11-21] MEDS: MECLIZINE 25 MG TAB PO SCH (09:23)
[2017-11-21] MEDS: BUDESONIDE 0.5 MG/2 ML NEBU INHALATION SCH ×2 (10:44→19:37)
[2017-11-21] MEDS ORDERED: SODIUM CHLORIDE 0.65% NASAL SPRAY 44 ML BTL NASAL PRN (11:28)
[2017-11-21 12:09] LABS: Glucose,Whole Blood 87 mg/dL (75-99)
--- NOTE | 2017-11-21 13:38 | P.PN ---
Subjective Progress Note Date: 11/21/17 Principal diagnosis: Large left-sided diaphragmatic hernia, COPD exacerbation, acute on chronic hypoxic respiratory failure 11/21/2017, patient seen and evaluated examined care plan discussed with the patient and present bedside at length his cuff congestion shortness breath is improved patient remains on IV steroids and breathing treatments general surgery is following along with cardiothoracic surgery patient is being planned for the care of diaphragmatic hernia with mesh tomorrow, will plan to lower down the steroids continue breathing treatments and continue deep breathing exercise incentive spirometry 11/20/2017, patient seen and evaluated exam and cuff congestion shortness breath is improved he remains on high-dose IV steroids 60 mg every 6 and breathing treatments patient is currently doing deep breathing exercises incentive spirometry cardiothoracic surgery is planning for left diaphragmatic hernia repair on , patient would like to proceed with that Objective - Vital Signs Vital signs: Vital Signs Temp 98 F 11/21/17 07:00 Pulse 96 11/21/17 11:04 Resp 16 11/21/17 07:00 BP 142/96 11/21/17 07:00 Pulse Ox 91 L 11/21/17 07:00 Intake & Output 11/20/17 11/21/17 11/21/17 18:59 06:59 18:59 Intake Total 400 950 Balance 400 950 Intake: Intake, IV Titration 400 550 Amount Sodium Chloride 0.9% 1, 400 550 000 ml @ 50 mls/hr IV . Q20H [facility]PLACED BY [facility] Rx#:[id number] Oral 400 Other: Voiding Method Toilet Urinal - Exam - Constitutional General appearance: Present: cooperative, no acute distress - Respiratory Details: Lungs sounds diminished bilaterally. Respirations even, nonlabored. Currently on 2 L nasal cannula with oxygen saturation 96%. On force expiration very fine wheezing are present - Cardiovascular Details: S1, S2 present. Regular rate and rhythm. Palpable peripheral pulses. No edema present. No calf pain or tenderness noted. - Gastrointestinal Gastrointestinal Comment(s): Abdomen soft, nontender, nondistended. Active bowel sounds 4 quadrants. Tolerating diet. - Genitourinary Genitourinary Comment(s): Continues to void clear, yellow urine. - Integumentary Integumentary Comment(s): Skin warm, dry, pink with evidence of good perfusion. Slight ecchymotic area noted to left lateral abdomen. Which continued to improve with serial exam - Neurologic Neurologic: Present: CNII-XII intact - Musculoskeletal Musculoskeletal: Present: gait normal, strength equal bilaterally - Psychiatric Psychiatric: Present: A&O x's 3, appropriate affect, intact judgment & insight - Labs CBC & Chem 7: 11/21/17 07:08 11/21/17 07:08 Labs: Abnormal Lab Results - Last 24 Hours (Table) 11/20/17 11/20/17 11/21/17 Range/Units 17:23 20:04 07:08 WBC 15.4 H (3.8-10.6) k/uL Neutrophils # 13.6 H (1.3-7.7) k/uL Lymphocytes # 0.8 L (1.0-4.8) k/uL BUN (9-20) mg/dL Glucose (74-99) mg/dL POC Glucose (mg/dL) 132 H 137 H (75-99) mg/dL 11/21/17 Range/Units 07:08 WBC (3.8-10.6) k/uL Neutrophils # (1.3-7.7) k/uL Lymphocytes # (1.0-4.8) k/uL BUN 23 H (9-20) mg/dL Glucose 107 H (74-99) mg/dL POC Glucose (mg/dL) (75-99) mg/dL Assessment and Plan Assessment: Acute COPD exacerbation and purulent tracheobronchitis Left-sided diaphragmatic hernia appears to be acute Large left-sided bruising and ecchymosis is significantly improved Tracheobronchitis Left side small pleural effusion likely reactive Plan: Continue breathing treatments deep breathing exercise Pain Management with morphine Antibiotics IV steroids, slowly being tapered Cardiothoracic evaluation results and reports reviewed patient is for left diaphragmatic hernia repair on Time with Patient: Greater than 30
--- NOTE | 2017-11-21 14:37 | P.PN ---
Subjective Progress Note Date: 11/21/17 Principal diagnosis: Diaphragmatic hernia. History of COPD, previous tobacco dependence, hypertension, hyperlipidemia, prostate disorder, previous hernia repairs. Patient is currently ambulating in his room and is in no acute distress. His is at his bedside. Questions answered to the best my ability. Denies complaints of pain at this time, patient reports as long as he is taking the pain medication he has no pain. Objective - Vital Signs Vital signs: Vital Signs Temp 98 F 11/21/17 07:00 Pulse 96 11/21/17 11:04 Resp 16 11/21/17 07:00 BP 142/96 11/21/17 07:00 Pulse Ox 91 L 11/21/17 07:00 Intake & Output 11/20/17 11/21/17 11/21/17 18:59 06:59 18:59 Intake Total 400 950 Balance 400 950 Intake: Intake, IV Titration 400 550 Amount Sodium Chloride 0.9% 1, 400 550 000 ml @ 50 mls/hr IV . Q20H [facility] Rx#:[id number] Oral 400 Other: Voiding Method Toilet Urinal - Constitutional General appearance: Present: cooperative, no acute distress - EENT ENT: Present: hard of hearing - Neck Details: No lymphadenopathy, neck is supple, no JVD. - Respiratory Details: Lung sounds essentially clear throughout, diminished to his bilateral bases. Respirations are symmetrical and nonlabored. Oxygen saturation is 91% on room air. He is achieving 2000 L on his incentive spirometry. - Cardiovascular Details: Regular rhythm and rate. S1 and S2 present, negative for S3, gallop or murmur. No edema present. Peripheral pulses palpable. - Gastrointestinal Gastrointestinal Comment(s): Abdomen is soft, nontender nondistended. Active bowel sounds all 4 abdominal quadrants. No organomegaly. No guarding or rigidity. Left upper quadrant upper abdomen, left lower chest area with soft nontender hernia. - Genitourinary Genitourinary Comment(s): Adequate urine output. - Integumentary Integumentary Comment(s): Skin warm, dry and pink. No clubbing or cyanosis. Small ecchymotic area to his left lower quadrant abdomen. - Neurologic Neurologic: Present: CNII-XII intact - Musculoskeletal Musculoskeletal: Present: gait normal, strength equal bilaterally - Psychiatric Psychiatric: Present: A&O x's 3, appropriate affect, intact judgment & insight - Allied health notes Allied health notes reviewed: nursing - Labs CBC & Chem 7: 11/21/17 07:08 11/21/17 07:08 Labs: Abnormal Lab Results - Last 24 Hours (Table) 11/20/17 11/20/17 11/21/17 Range/Units 17:23 20:04 07:08 WBC 15.4 H (3.8-10.6) k/uL Neutrophils # 13.6 H (1.3-7.7) k/uL Lymphocytes # 0.8 L (1.0-4.8) k/uL BUN (9-20) mg/dL Glucose (74-99) mg/dL POC Glucose (mg/dL) 132 H 137 H (75-99) mg/dL 11/21/17 Range/Units 07:08 WBC (3.8-10.6) k/uL Neutrophils # (1.3-7.7) k/uL Lymphocytes # (1.0-4.8) k/uL BUN 23 H (9-20) mg/dL Glucose 107 H (74-99) mg/dL POC Glucose (mg/dL) (75-99) mg/dL Assessment and Plan (1) Acute exacerbation of chronic obstructive airways disease Current Visit: Yes Status: Acute Code(s): J44.1 - CHRONIC OBSTRUCTIVE PULMONARY DISEASE W (ACUTE) EXACERBATION SNOMED Code(s): 740240975 (2) Diaphragmatic hernia Current Visit: Yes Status: Acute Code(s): K44.9 - DIAPHRAGMATIC HERNIA WITHOUT OBSTRUCTION OR GANGRENE SNOMED Code(s): 30681427 (3) Hyperlipidemia Current Visit: Yes Status: Chronic Code(s): E78.5 - HYPERLIPIDEMIA, UNSPECIFIED SNOMED Code(s): 59763008 (4) Hypertension Current Visit: Yes Status: Chronic Code(s): I10 - ESSENTIAL (PRIMARY) HYPERTENSION SNOMED Code(s): 88824429 (5) Prostate disorder Current Visit: Yes Status: Chronic Code(s): N42.9 - DISORDER OF PROSTATE, UNSPECIFIED SNOMED Code(s): 52538726 (6) Tobacco dependence in remission Current Visit: Yes Status: Acute Code(s): F17.201 - NICOTINE DEPENDENCE, UNSPECIFIED, IN REMISSION SNOMED Code(s): 630596296 Plan: 1. Patient will be nothing by mouth after midnight. 2. The patient is scheduled tomorrow 11/22/2017 for repair lung hernia left chest wall with [place]-Supa patch by Dr. Avila. 3. Encourage use of his incentive spirometry every hour while awake. 4. GI/DVT prophylaxis 5. Pain management per primary care service. 6. More recommendations to follow as patient progresses in his care. Time with Patient: Greater than 30
--- NOTE | 2017-11-21 16:50 | PN ---
PROGRESS NOTE DATE OF SERVICE: 11/21/2017 This 72-year-old gentleman who was admitted with left-sided abdominal pain as well as spigelian hernia with a diaphragmatic hernia is scheduled for surgery by Cardiothoracic Surgery. No chest pain. No palpitation. No fever. PHYSICAL EXAMINATION: Alert and oriented x3. Pulse 82, blood pressure 142/96, respiration 16, temperature 98 degrees, pulse ox 91% on room air. HEENT: Conjunctivae normal. NECK: No jugular venous distention. CARDIOVASCULAR SYSTEM: S1, S2 muffled. RESPIRATORY SYSTEM: Breath sounds diminished at the bases. A few scattered rhonchi and crackles. Expiratory wheezing. ABDOMEN: Soft. Mild diffuse tenderness in the left upper quadrant present. NERVOUS SYSTEM: No focal deficit. LABS: WBC 15.4, hemoglobin 13.7. CBC within normal limits. ASSESSMENT: 1. 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 2. Diaphragmatic hernia with herniation. 3. Chronic obstructive pulmonary disease. 4. Acute purulent tracheobronchitis. 5. Hyperlipidemia. 6. Hypertension. 7. Degenerative joint disease. 8. Meniere disease. 9. Hard of hearing. RECOMMENDATIONS AND DISCUSSION: In this 72-year-old gentleman who presented with multiple complex medical issues, we will monitor the patient closely, continue the current medications, continue with symptomatic treatment. Otherwise, at this time I would recommend cardiothoracic surgery evaluation and possible surgery. Continue the rest of the medications. Guarded prognosis because of multiple complex medical issues. Further recommendations to follow. MMODL / IJN: [id number] /
[2017-11-21 17:04] LABS: Glucose,Whole Blood 125 mg/dL (75-99)
[2017-11-21] MEDS: SODIUM CHLORIDE 0.9% 1,000 ML IV SCH (17:15)
[2017-11-21 20:55] LABS: Glucose,Whole Blood 118 mg/dL (75-99)
[2017-11-21] MEDS: LORazepam 0.5 MG TAB PO SCH (23:22)
[2017-11-21] MEDS: MONTELUKAST 10 MG TAB PO SCH (23:24)
[2017-11-21] MEDS: FINASTERIDE 5 MG TAB PO SCH (23:24)
[2017-11-21] MEDS: TAMSULOSIN 0.4 MG CAP.ER.24H PO SCH (23:24)
[2017-11-21] MEDS: ATORVASTATIN 10 MG TAB PO SCH (23:24)
[2017-11-22] MEDS: LEVOFLOXACIN 500MG-D5W PMX 500 MG in DEXTROSE/WATER 1 100ML.BAG IVPB SCH (02:22)
[2017-11-22] MEDS: MORPHINE SULFATE 2 MG/ML SYRINGE IVP PRN ×2 (02:23→06:58)
[2017-11-22] MEDS: ALBUTEROL NEBULIZED 2.5 MG/3 ML INHALATION PRN (05:36)
[2017-11-22] MEDS: IPRATROPIUM-ALBUTEROL 3 ML NEB INHALATION SCH ×4 (07:15→18:55)
[2017-11-22] MEDS: BUDESONIDE 0.5 MG/2 ML NEBU INHALATION SCH ×2 (07:15→18:55)
[2017-11-22 07:35] LABS: Glucose,Whole Blood 79 mg/dL (75-99)
[2017-11-22 08:07] LABS: Basophils % (A) 0 %; Eosinophils # (A) 0.1 k/uL (0-0.7); Eosinophils % (A) 0 %; HCT 47.6 % (39.0-53.0); Lymphocytes # (A) 1.4 k/uL (1.0-4.8); Lymphocytes % (A) 12 %; MCH 29.4 pg (25.0-35.0); MCHC 31.5 g/dL (31.0-37.0); MCV 93.4 fL (80.0-100.0); Mean Platelet Volume 6.7; Monocytes # (A) 0.9 k/uL (0-1.0); Monocytes % (A) 7 %; Neutrophils # (A) 9.4 k/uL (1.3-7.7); Neutrophils % (A) 78 %; Platelet Count 457 k/uL (150-450); RDW 12.4 % (11.5-15.5); WBC 12.1 k/uL (3.8-10.6)
[2017-11-22] MEDS: INDAPAMIDE 1.25 MG TAB PO SCH (08:21)
[2017-11-22] MEDS: MECLIZINE 25 MG TAB PO SCH (08:24)
[2017-11-22] MEDS: INSULIN ASPART 100 UNIT/ML 1 ML 10 ML VIAL SQ SCH ×4 (08:24→20:31)
[2017-11-22] MEDS: BENZONATATE 100 MG CAP PO SCH ×3 (08:24→21:41)
[2017-11-22] MEDS: PANTOPRAZOLE 40 MG TABLET PO SCH (08:25)
[2017-11-22 08:27] LABS: Anion Gap 10 mmol/L; Blood Urea Nitrogen 23 mg/dL (9-20); Calcium 9.7 mg/dL (8.4-10.2); Carbon Dioxide 29 mmol/L (22-30); Chloride 100 mmol/L (98-107); Glucose 89 mg/dL (74-99); Potassium 4.4 mmol/L (3.5-5.1); Sodium 139 mmol/L (137-145)
[2017-11-22 08:42] LABS: INR 1.2 (<1.2); Prothrombin Time 11.6 sec (9.0-12.0)
--- NOTE | 2017-11-22 09:03 | P.PN ---
Subjective Progress Note Date: 11/22/17 Principal diagnosis: Large left-sided diaphragmatic hernia, acute left-sided diaphragmatic perforation, COPD exacerbation, acute on chronic hypoxic respiratory failure 11/22/2017, patient seen and evaluated examined during the rounds clinically doing much better in terms of breathing cuff congestion still get short of breath on activity and exertion breathing treatment and deep breathing sense incentive spirometry has been helping patient is scheduled for a left-sided diaphragmatic repair with mesh later on today by cardiothoracic surgery 11/21/2017, patient seen and evaluated examined care plan discussed with the patient and present bedside at length his cuff congestion shortness breath is improved patient remains on IV steroids and breathing treatments general surgery is following along with cardiothoracic surgery patient is being planned for the care of diaphragmatic hernia with mesh tomorrow, will plan to lower down the steroids continue breathing treatments and continue deep breathing exercise incentive spirometry 11/20/2017, patient seen and evaluated exam and cuff congestion shortness breath is improved he remains on high-dose IV steroids 60 mg every 6 and breathing treatments patient is currently doing deep breathing exercises incentive spirometry cardiothoracic surgery is planning for left diaphragmatic hernia repair on , patient would like to proceed with that Objective - Vital Signs Vital signs: Vital Signs Temp 97.3 F L 11/22/17 08:17 Pulse 86 11/22/17 08:17 Resp 21 11/22/17 08:17 BP 131/85 11/22/17 08:17 Pulse Ox 94 L 11/22/17 08:17 Intake & Output 11/21/17 11/22/17 11/22/17 18:59 06:59 18:59 Intake Total 400 240 Balance 400 240 Weight 92.079 kg Intake: Intake, IV Titration 400 Amount Sodium Chloride 0.9% 1, 400 000 ml @ 50 mls/hr IV . Q20H [facility] Rx#:[id number] Oral 240 Other: Voiding Method Toilet Urinal # Voids 1 1 - Exam - Constitutional General appearance: Present: cooperative, no acute distress - Respiratory Details: Lungs sounds diminished bilaterally. Respirations even, nonlabored. Currently on 2 L nasal cannula with oxygen saturation 96%. On force expiration very fine wheezing are present - Cardiovascular Details: S1, S2 present. Regular rate and rhythm. Palpable peripheral pulses. No edema present. No calf pain or tenderness noted. - Gastrointestinal Gastrointestinal Comment(s): Abdomen soft, nontender, nondistended. Active bowel sounds 4 quadrants. Tolerating diet. - Genitourinary Genitourinary Comment(s): Continues to void clear, yellow urine. - Integumentary Integumentary Comment(s): Skin warm, dry, pink with evidence of good perfusion. Slight ecchymotic area noted to left lateral abdomen. Which continued to improve with serial exam - Neurologic Neurologic: Present: CNII-XII intact - Musculoskeletal Musculoskeletal: Present: gait normal, strength equal bilaterally - Psychiatric Psychiatric: Present: A&O x's 3, appropriate affect, intact judgment & insight - Labs CBC & Chem 7: 11/22/17 07:33 11/22/17 07:33 Labs: Abnormal Lab Results - Last 24 Hours (Table) 11/21/17 11/21/17 11/22/17 Range/Units 16:49 20:49 07:33 WBC 12.1 H (3.8-10.6) k/uL Plt Count 457 H (150-450) k/uL Neutrophils # 9.4 H (1.3-7.7) k/uL INR (<1.2) BUN (9-20) mg/dL POC Glucose (mg/dL) 125 H 118 H (75-99) mg/dL 11/22/17 11/22/17 Range/Units 07:33 07:33 WBC (3.8-10.6) k/uL Plt Count (150-450) k/uL Neutrophils # (1.3-7.7) k/uL INR 1.2 H (<1.2) BUN 23 H (9-20) mg/dL POC Glucose (mg/dL) (75-99) mg/dL Assessment and Plan Assessment: Acute COPD exacerbation and purulent tracheobronchitis Left-sided diaphragmatic hernia appears to be acute with herniation abdominal content including omentum into the thoracic cavity on the left side Small left-sided pleural effusion likely reactive Large left-sided bruising and ecchymosis is significantly improved Dyslipidemia Hypertension hypertensive cardiovascular disease Plan: Continue breathing treatments deep breathing exercise Pain Management with morphine Antibiotics IV steroids, slowly being tapered Cardiothoracic evaluation results and reports reviewed patient is for left diaphragmatic hernia repair on Time with Patient: Greater than 30
[2017-11-22] MEDS ORDERED: IV FLUID CONTINUATION 350 ML IV ONE (09:32)
[2017-11-22] MEDS ORDERED: ONDANSETRON 4 MG/2 ML VIAL IVP ONE (09:58)
[2017-11-22] MEDS ORDERED: ceFAZolin IN SWFI 2 GM/20 ML SYRINGE IVP ONE (10:00)
[2017-11-22] MEDS ORDERED: ceFAZolin 2,000 MG in DEXTROSE/WATER 1 50ML.BAG IVPB ONE (10:00)
[2017-11-22 10:02] LABS: Glucose,Whole Blood 80 mg/dL (75-99)
[2017-11-22] MEDS ORDERED: HYDROmorphone (PF) 1 MG/ML ONE (10:06)
[2017-11-22] MEDS ORDERED: GLYCOPYRROLATE 0.2 MG/ML 2 ML VIAL ONE (10:06)
[2017-11-22] MEDS ORDERED: PROPOFOL 10 MG/ML 20 ML VIAL IV ONE (10:06)
[2017-11-22] MEDS ORDERED: LIDOCAINE 1% INJ 10MG/ML (20 ML MDV) ONE (10:06)
[2017-11-22] MEDS ORDERED: MIDAZOLAM 2 MG/2 ML VIAL ONE (10:06)
[2017-11-22] MEDS ORDERED: PHENYLEPHRINE-0.9% NACL SYG 1 MG/10 ML SYRINGE ONE (10:06)
[2017-11-22] MEDS ORDERED: SUCCINYLCHOLINE CHLORIDE 100 MG/5 ML SYR IV ONE (10:06)
[2017-11-22] MEDS ORDERED: ROCURONIUM BROMIDE 10 MG/ML 10 ML VIAL IV ONE (10:06)
[2017-11-22] MEDS ORDERED: fentaNYL (PF) 50 MCG/ML 2 ML AMP ONE (10:06)
[2017-11-22] MEDS ORDERED: NEOSTIGMINE 1 MG/ML 10 ML VIAL ONE (10:06)
[2017-11-22] MEDS ORDERED: methylPREDNISolone SOD SUCCI 125 MG/2 ML VIAL ONE (10:06)
[2017-11-22] MEDS ORDERED: ePHEDrine SULFATE/0.9% NACL/PF 50 MG/5 ML SYRINGE IV ONE (10:06)
[2017-11-22] MEDS: SODIUM CHLORIDE 0.9% 1,000 ML IV SCH ×2 (10:54→14:23)
[2017-11-22] MEDS ORDERED: LACTATED RINGERS 1,000 ML IV ONE (10:57)
--- NOTE | 2017-11-22 12:12 | P.OP ---
Date of Procedure: 11/22/17 Preoperative Diagnosis: lung/diaphragmatic hernia left side Postoperative Diagnosis: same Procedure(s) Performed: Left thoracotomy with closure of diaphragmatic hernia with patch and repair of costochondral dislocation with subsequent lung herniation. Implants: 2 mm [place]-Supa patch Anesthesia: RENÉ Surgeon: Khoi Avila Orthotic Practitioner #1: Mayo Wilson Estimated Blood Loss (ml): 100 IV fluids (ml): 600 Urine output (ml): 0 Pathology: none sent Condition: stable Disposition: PACU Indications for Procedure: 72-year-old male with severe COPD presents with pain and mass on the left side this is all due to a severe coughing episode in September. Computed tomography scan demonstrated herniation of abdominal contents into the subcutaneous tissue on the left side along with protrusion of the lung between the ribs on the left side there was suspicion for diaphragmatic disruption as well Operative Findings: Patient was brought to the operating room placed supine on the operative table anesthetized and intubated. He was turned in the right lateral decubitus position. The left chest and upper abdomen and flank were sterilely prepped and draped. There was a large gap between the ninth and 10th rib with disruption of the costal cartilage at this level. Incision was made over this 10th interspace. Incision was carried down through subcutaneous tissue. The muscle was very attenuated. On dividing the muscle we entered the pleural space. There was a large area of pleura that was stretched between the 10th and 11th rib that was markedly inflamed. This area was opened widely back to good muscle posteriorly. Anteriorly we continued the dissection to the costochondral junction. Beneath this, there was a large amount of omentum noted. This was reduced back into the abdomen. There was a 2 cm defect in the diaphragm anteriorly at the costochondral junction. Circumferential simple sutures of 0 Ethibond suture were placed into the diaphragmatic muscle around this defect. These were then passed through an appropriately shaped and sized piece of 2 mm [place]-Supa patch. The sutures were tied down. This closed the diaphragmatic hernia. A #2 [id number] Ethibond suture was used to reapproximate the costochondral dislocation. We then used 0 Ethibond sutures To reapproximate the ribs. A 28-K[place]z chest tube was placed in the pleural space and brought out through a separate stab incision prior to tying the pericostal sutures. 16 round fluted drain was placed into the previous lung herniation site and brought out anteriorly. The muscle was closed over this with a single layer of running 0 Vicryl suture. Subcutaneous tissues were closed with 2 layers of 20 and the skin with 3-0 Vicryl. Dry sterile dressings were applied the patient was turned supine and extubated and transferred to recovery in stable condition.
[2017-11-22] MEDS ORDERED: HYDROmorphone 2 MG/ML 1 ML SYRINGE IVP ONE (12:16)
[2017-11-22] MEDS: HYDROmorphone 2 MG/ML 1 ML SYRINGE IVP ONE ×3 (12:25→12:47)
[2017-11-22] MEDS ORDERED: METOCLOPRAMIDE 5 MG/ML 2 ML VIAL IVP PRN (13:08)
[2017-11-22] MEDS ORDERED: NALOXONE 0.4 MG/ML 1 ML VIAL IV PRN (13:08)
[2017-11-22] MEDS ORDERED: ONDANSETRON 4 MG/2 ML VIAL IVP PRN (13:08)
--- NOTE | 2017-11-22 13:40 | XR ---
EXAMINATION TYPE: XR chest 1V portable DATE OF EXAM: 11/22/2017 COMPARISON: Prior chest x-ray dated 11/18/2017 HISTORY: Postop left diaphragmatic hernia repair TECHNIQUE: Single frontal view of the chest is obtained. FINDINGS: Left-sided chest tubes are in place. Subcutaneous emphysema is noted. Small left-sided pne umothorax is present. Patchy basilar density persists at the right and left lung base. Heart size is stable. IMPRESSION: Postprocedural changes. Basilar atelectasis. Small left apical pneumothorax.
[2017-11-22] MEDS: MORPHINE PCA 30 MG/30 ML SYRINGE IV PRN ×2 (14:01→23:46)
[2017-11-22] MEDS: methylPREDNISolone SOD SUCCI 40 MG/ML 1 ML VIAL IV SCH (14:32)
[2017-11-22] MEDS: HEPARIN SODIUM,PORCINE 5,000 UNIT/ML 1 ML VIAL SQ SCH ×2 (16:13→23:47)
[2017-11-22] MEDS: ceFAZolin IN SWFI 2 GM/20 ML SYRINGE IVP SCH (16:14)
[2017-11-22 17:07] LABS: Glucose,Whole Blood 118 mg/dL (75-99)
[2017-11-22] MEDS: KETOROLAC 30 MG/ML 1 ML VIAL IVP SCH ×2 (17:21→23:47)
--- NOTE | 2017-11-22 20:18 | PN ---
PROGRESS NOTE DATE OF SERVICE: 11/22/2017 INTERVAL HISTORY: This 72-year-old gentleman was admitted with a diaphragmatic hernia as well as esophageal hernia, underwent left thoracotomy with of the diaphragmatic hernia with a patch and repair with costochondral dislocation and subsequent herniation by Dr. Avila. No chest pain. No palpitations. No fever. EXAM: Alert and oriented x3. Pulse is 94, blood pressure 140/76, respirations 18, temperature normal, pulse ox 96% on 2L. HEENT: Conjunctivae normal. NECK: No jugular venous distention. CARDIOVASCULAR: S1, S2 muffled. RESPIRATORY: Breath sounds diminished in the bases. A few scattered rhonchi and crackles. ABDOMEN: Soft, nontender. LEGS: No edema. NERVOUS SYSTEM: No focal deficits. CHEST: Status post surgery. LABS: WBC 12.1. ASSESSMENT: 1. Left-sided abdominal pain and chest pain with diaphragmatic hernia with a diaphragmatic rupture, status post left thoracotomy with closure the diaphragmatic hernia with a patch and repair of the costochondral dislocation with subsequent herniation. 2. Chronic obstructive pulmonary disease. 3. Acute purulent tracheobronchitis. 4. Hyperlipidemia. 5. Hypertension. 6. History of degenerative joint disease. 7. History of hard of hearing. RECOMMENDATIONS AND DISCUSSION: Continue current medical management and continue symptomatic treatment. Otherwise, incentive spirometry. Closely follow. Further recommendations to follow. MMRICHAL / IJN: [id number] / MTDD
[2017-11-22 20:29] LABS: Glucose,Whole Blood 123 mg/dL (75-99)
[2017-11-22] MEDS: ATORVASTATIN 10 MG TAB PO SCH (20:30)
[2017-11-22] MEDS: FINASTERIDE 5 MG TAB PO SCH (20:30)
[2017-11-22] MEDS: LORazepam 0.5 MG TAB PO SCH (20:31)
[2017-11-22] MEDS: TAMSULOSIN 0.4 MG CAP.ER.24H PO SCH (20:31)
[2017-11-22] MEDS: MONTELUKAST 10 MG TAB PO SCH (20:31)
[2017-11-23] MEDS ORDERED: LEVOFLOXACIN 500 MG TAB PO SCH
[2017-11-23] MEDS: ceFAZolin IN SWFI 2 GM/20 ML SYRINGE IVP SCH (02:39)
[2017-11-23] MEDS: ALBUTEROL NEBULIZED 2.5 MG/3 ML INHALATION PRN (05:04)
[2017-11-23 07:14] LABS: Basophils % (A) 0 %; Eosinophils # (A) 0.1 k/uL (0-0.7); Eosinophils % (A) 1 %; HCT 44.7 % (39.0-53.0); Lymphocytes # (A) 1.2 k/uL (1.0-4.8); Lymphocytes % (A) 11 %; MCHC 31.3 g/dL (31.0-37.0); MCV 96.1 fL (80.0-100.0); Mean Platelet Volume 7.4; Monocytes % (A) 8 %; Neutrophils # (A) 8.9 k/uL (1.3-7.7); Neutrophils % (A) 78 %; Platelet Count 418 k/uL (150-450); RBC 4.66 m/uL (4.30-5.90); WBC 11.4 k/uL (3.8-10.6)
[2017-11-23] MEDS: KETOROLAC 30 MG/ML 1 ML VIAL IVP SCH ×3 (07:16→16:49)
[2017-11-23 07:27] LABS: Anion Gap 11 mmol/L; Blood Urea Nitrogen 27 mg/dL (9-20); Calcium 8.6 mg/dL (8.4-10.2); Carbon Dioxide 26 mmol/L (22-30); Chloride 100 mmol/L (98-107); Glucose 95 mg/dL (74-99); Sodium 137 mmol/L (137-145)
[2017-11-23 07:50] LABS: Glucose,Whole Blood 90 mg/dL (75-99)
[2017-11-23] MEDS: INSULIN ASPART 100 UNIT/ML 1 ML 10 ML VIAL SQ SCH ×4 (07:55→21:51)
[2017-11-23] MEDS: HEPARIN SODIUM,PORCINE 5,000 UNIT/ML 1 ML VIAL SQ SCH ×2 (07:55→16:50)
[2017-11-23] MEDS: INDAPAMIDE 1.25 MG TAB PO SCH (07:56)
[2017-11-23] MEDS: BENZONATATE 100 MG CAP PO SCH ×3 (07:58→21:44)
[2017-11-23] MEDS: methylPREDNISolone SOD SUCCI 40 MG/ML 1 ML VIAL IV SCH (07:58)
[2017-11-23] MEDS: MECLIZINE 25 MG TAB PO SCH (07:59)
[2017-11-23] MEDS: PANTOPRAZOLE 40 MG TABLET PO SCH (07:59)
--- NOTE | 2017-11-23 08:07 | P.PN ---
Subjective Progress Note Date: 11/23/17 Principal diagnosis: Large left-sided diaphragmatic hernia, severe acute left-sided chest wall and upper abdominal wall pain, acute left-sided diaphragmatic perforation, COPD exacerbation, acute on chronic hypoxic respiratory failure, purulent tracheobronchitis November 23 2017, patient seen and evaluated examined during the rounds he is postop day #1 of left diaphragmatic hernia repair along with mesh. He has a left-sided chest tube as well will she is connected to suction no air leak is present. Is currently being controlled with SPECIALTY THERAPIST pump for pain also getting as needed pain medications as well he has limited respiratory effort however he is doing relatively better on IES able to pull up to a liter still coughed out the thick yellowish brown plug of phlegm which is being sent for Gram stain and culture of respiratory as well as the ER and has been instructed to send that sample. Chest x-ray performed today and unable to download and review it report is pending 11/22/2017, patient seen and evaluated examined during the rounds clinically doing much better in terms of breathing cuff congestion still get short of breath on activity and exertion breathing treatment and deep breathing sense incentive spirometry has been helping patient is scheduled for a left-sided diaphragmatic repair with mesh later on today by cardiothoracic surgery 11/21/2017, patient seen and evaluated examined care plan discussed with the patient and present bedside at length his cuff congestion shortness breath is improved patient remains on IV steroids and breathing treatments general surgery is following along with cardiothoracic surgery patient is being planned for the care of diaphragmatic hernia with mesh tomorrow, will plan to lower down the steroids continue breathing treatments and continue deep breathing exercise incentive spirometry 11/20/2017, patient seen and evaluated exam and cuff congestion shortness breath is improved he remains on high-dose IV steroids 60 mg every 6 and breathing treatments patient is currently doing deep breathing exercises incentive spirometry cardiothoracic surgery is planning for left diaphragmatic hernia repair on , patient would like to proceed with that Objective - Vital Signs Vital signs: Vital Signs Temp 97.5 F L 11/23/17 07:39 Pulse 73 11/23/17 07:39 Resp 24 11/23/17 07:39 BP 133/76 11/23/17 07:39 Pulse Ox 95 11/23/17 07:39 Intake & Output 11/22/17 11/23/17 11/23/17 18:59 06:59 18:59 Intake Total 1270 Output Total 7070 75 140 Balance -5800 -75 -140 Weight 92.079 kg Intake: IV 1150 Oral 120 Output: Chest Tube Drainage 3160 140 Chest Tube Left Lower 3160 140 Anterior Chest Drainage 3200 75 Left 40 25 Left Chest 3160 50 Urine 450 Straight 450 Estimated Blood Loss 260 Other: Voiding Method Indwelling Catheter Urinal # Voids 1 - Exam - Constitutional General appearance: Present: cooperative, no acute distress - Respiratory Details: Lungs sounds diminished bilaterally. Respirations even, nonlabored. Currently on 2 L nasal cannula with oxygen saturation 96%. On force expiration very fine wheezing are present, decreased air entry at the bases - Cardiovascular Details: S1, S2 present. Regular rate and rhythm. Palpable peripheral pulses. No edema present. No calf pain or tenderness noted. - Gastrointestinal Gastrointestinal Comment(s): Abdomen soft, nontender, nondistended. Active bowel sounds 4 quadrants. Tolerating diet. - Genitourinary Genitourinary Comment(s): Continues to void clear, yellow urine. - Integumentary Integumentary Comment(s): Skin warm, dry, pink with evidence of good perfusion. Slight ecchymotic area noted to left lateral abdomen. Which continued to improve with serial exam - Neurologic Neurologic: Present: CNII-XII intact - Musculoskeletal Musculoskeletal: Present: gait normal, strength equal bilaterally - Psychiatric Psychiatric: Present: A&O x's 3, appropriate affect, intact judgment & insight - Labs CBC & Chem 7: 11/23/17 06:39 11/23/17 06:39 Labs: Abnormal Lab Results - Last 24 Hours (Table) 11/22/17 11/22/17 11/22/17 Range/Units 07:33 07:33 07:33 WBC 12.1 H (3.8-10.6) k/uL Plt Count 457 H (150-450) k/uL Neutrophils # 9.4 H (1.3-7.7) k/uL INR 1.2 H (<1.2) BUN 23 H (9-20) mg/dL POC Glucose (mg/dL) (75-99) mg/dL 11/22/17 11/22/17 11/23/17 Range/Units 17:06 20:15 06:39 WBC 11.4 H (3.8-10.6) k/uL Plt Count (150-450) k/uL Neutrophils # 8.9 H (1.3-7.7) k/uL INR (<1.2) BUN (9-20) mg/dL POC Glucose (mg/dL) 118 H 123 H (75-99) mg/dL 11/23/17 Range/Units 06:39 WBC (3.8-10.6) k/uL Plt Count (150-450) k/uL Neutrophils # (1.3-7.7) k/uL INR (<1.2) BUN 27 H (9-20) mg/dL POC Glucose (mg/dL) (75-99) mg/dL Assessment and Plan Assessment: Acute COPD exacerbation and purulent tracheobronchitis Left-sided diaphragmatic hernia, acute with herniation of abdominal content including omentum into the thoracic cavity on the left side Small left-sided pleural effusion likely reactive Large left-sided bruising and ecchymosis is significantly improved Dyslipidemia Hypertension hypertensive cardiovascular disease Severe COPD Plan: Continue breathing treatments deep breathing exercise Pain Management with SPECIALTY THERAPIST and intermittently for breakthrough pain Antibiotics IV steroids, slowly being tapered Cardiothoracic evaluation results and reports reviewed patient is status post left diaphragmatic hernia repair on 11/22/2017 Send sputum for Gram stain and culture Time with Patient: Greater than 30
[2017-11-23] MEDS ORDERED: HYDROcodone/APAP 5-325MG 1 EACH TAB PO PRN ×2 (08:13)
--- NOTE | 2017-11-23 09:23 | P.PN ---
Subjective Progress Note Date: 11/23/17 Principal diagnosis: Lung/diaphragmatic hernia, left side. History of COPD, previous tobacco dependence, hypertension, hyperlipidemia, prostate disorder, previous hernia repairs. POD #1 left thoracotomy closure of diaphragmatic hernia with patch and repair of costochondral dislocation with subsequent lung herniation. Patient is currently sitting up in bed in no acute distress. States pain is mostly controlled with [employer] SPECIALIST. is at bedside. Objective - Vital Signs Vital signs: Vital Signs Temp 97.5 F L 11/23/17 07:39 Pulse 73 11/23/17 07:39 Resp 24 11/23/17 07:39 BP 133/76 11/23/17 07:39 Pulse Ox 95 11/23/17 07:39 Intake & Output 11/22/17 11/23/17 11/23/17 18:59 06:59 18:59 Intake Total 1270 Output Total 7070 75 140 Balance -5800 -75 -140 Weight 92.079 kg Intake: IV 1150 Oral 120 Output: Chest Tube Drainage 3160 140 Chest Tube Left Lower 3160 140 Anterior Chest Drainage 3200 75 Left 40 25 Left Chest 3160 50 Urine 450 Straight 450 Estimated Blood Loss 260 Other: Voiding Method Indwelling Catheter Urinal # Voids 1 - Constitutional General appearance: Present: cooperative, no acute distress - Respiratory Details: Lungs sounds diminished bilaterally. Respirations even, nonlabored. Currently on 3 L nasal cannula with oxygen saturation 95%. Able to achieve 1000 mL on incentive spirometry. Left pleural chest tube to -20 cm wall suction, 45 mL thin serosanguineous drainage overnight, 180 mL since surgery. No air leak present. - Cardiovascular Details: S1, S2 present. Regular rate and rhythm. Palpable peripheral pulses bilaterally. No edema present. No calf pain or tenderness noted. - Gastrointestinal Gastrointestinal Comment(s): Abdomen soft, nontender, nondistended. Active bowel sounds 4 quadrants. Tolerating diet. - Genitourinary Genitourinary Comment(s): Patient needed to have straight cath performed this morning. - Integumentary Integumentary Comment(s): Skin warm, dry, pink with evidence of good perfusion. - Neurologic Neurologic: Present: CNII-XII intact - Musculoskeletal Musculoskeletal: Present: gait normal, strength equal bilaterally - Psychiatric Psychiatric: Present: A&O x's 3, appropriate affect, intact judgment & insight - Allied health notes Allied health notes reviewed: nursing - Labs CBC & Chem 7: 11/23/17 06:39 11/23/17 06:39 Labs: Abnormal Lab Results - Last 24 Hours (Table) 11/22/17 11/22/17 11/23/17 Range/Units 17:06 20:15 06:39 WBC 11.4 H (3.8-10.6) k/uL Neutrophils # 8.9 H (1.3-7.7) k/uL BUN (9-20) mg/dL POC Glucose (mg/dL) 118 H 123 H (75-99) mg/dL 11/23/17 Range/Units 06:39 WBC (3.8-10.6) k/uL Neutrophils # (1.3-7.7) k/uL BUN 27 H (9-20) mg/dL POC Glucose (mg/dL) (75-99) mg/dL - Imaging and Cardiology Chest x-ray: image reviewed Assessment and Plan (1) Hypertension Current Visit: Yes Status: Chronic Code(s): I10 - ESSENTIAL (PRIMARY) HYPERTENSION SNOMED Code(s): 26601908 (2) Hyperlipidemia Current Visit: Yes Status: Chronic Code(s): E78.5 - HYPERLIPIDEMIA, UNSPECIFIED SNOMED Code(s): 32340636 (3) Prostate disorder Current Visit: Yes Status: Chronic Code(s): N42.9 - DISORDER OF PROSTATE, UNSPECIFIED SNOMED Code(s): 52711176 (4) Tobacco dependence in remission Current Visit: No Status: Resolved Code(s): F17.201 - NICOTINE DEPENDENCE, UNSPECIFIED, IN REMISSION SNOMED Code(s): 652962106 (5) History of hernia repair Current Visit: No Status: Resolved Code(s): Z98.890 - OTHER SPECIFIED POSTPROCEDURAL STATES; Z87.19 - PERSONAL HISTORY OF OTHER DISEASES OF THE DIGESTIVE SYSTEM SNOMED Code(s): 48311379650219 (6) Acute exacerbation of chronic obstructive airways disease Current Visit: Yes Status: Acute Code(s): J44.1 - CHRONIC OBSTRUCTIVE PULMONARY DISEASE W (ACUTE) EXACERBATION SNOMED Code(s): 886799591 (7) Diaphragmatic hernia Current Visit: Yes Status: Acute Code(s): K44.9 - DIAPHRAGMATIC HERNIA WITHOUT OBSTRUCTION OR GANGRENE SNOMED Code(s): 13702129 Plan: 1. Left pleural chest tube placed to waterseal. Likely will discontinue tomorrow. 2. Medical comorbidities to be managed by primary care service. 3. Antibiotics, steroids, bronchodilators per pulmonology. 4. Wean O2 as tolerated. Incentive spirometry ordered, encourage use. 5. Encourage continued smoking cessation. 6. GI/DVT prophylaxis. 7. Continue current pain medication regimen. [place] added for breakthrough pain. 8. More recommendations to follow. Time with Patient: Greater than 30
[2017-11-23] MEDS: MORPHINE PCA 30 MG/30 ML SYRINGE IV PRN (09:43)
[2017-11-23] MEDS: BUDESONIDE 0.5 MG/2 ML NEBU INHALATION SCH ×2 (09:51→19:15)
[2017-11-23] MEDS: IPRATROPIUM-ALBUTEROL 3 ML NEB INHALATION SCH ×4 (09:52→19:15)
[2017-11-23 11:20] LABS: Glucose,Whole Blood 136 mg/dL (75-99)
--- NOTE | 2017-11-23 15:09 | XR ---
EXAMINATION TYPE: XR chest 1V DATE OF EXAM: 11/23/2017 COMPARISON: Prior chest x-ray 11/22/2017 HISTORY: Chest tube, post hernia repair diaphragm TECHNIQUE: Single frontal view of the chest is obtained. FINDINGS: Left-sided chest tube remains in place. Subcutaneous emphysema changes are present. Minima l left apical pneumothorax is noted. Basilar atelectatic changes persist. The heart is stable. IMPRESSION: Similar findings to prior exam. Postop changes.
[2017-11-23 16:44] LABS: Glucose,Whole Blood 126 mg/dL (75-99)
--- NOTE | 2017-11-23 20:04 | PN ---
PROGRESS NOTE DATE OF SERVICE: 11/23/2017 This 72-year-old gentleman who was admitted with a complicated diaphragmatic hernia underwent surgery by Dr. Avila. The patient underwent a left thoracotomy with closure of the left diaphragmatic hernia with a patch and repair of the costochondral dislocation with subsequent lung herniation. Chest tube in situ now. No chest pain or palpitation. No fever. PHYSICAL EXAMINATION: Alert and oriented x3. Pulse is 92, blood pressure 118.80, respiration 16, temperature 97.6, pulse ox 94% on 3 L. HEENT: Conjunctivae normal. Oral mucosa moist. NECK: No jugular venous distention. No carotid bruit. No lymph node enlargement. CARDIOVASCULAR SYSTEM: S1, S2 muffled. RESPIRATORY SYSTEM: Breath sounds diminished at the bases, especially on the left side. ABDOMEN: Soft, nontender. No mass palpable. LEGS: No edema. No swelling. NERVOUS SYSTEM: No focal deficit. LABS: WBC 11.4. Other labs are noted. ASSESSMENT: 1. Left-sided abdominal and chest pain with a diaphragmatic hernia with a diaphragmatic rupture, status post thoracotomy with closure of the diaphragmatic hernia with a patch and repair with postoperative dislocation with subsequent lung herniation. 2. Chronic obstructive pulmonary disease. 3. 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 4. Acute purulent tracheobronchitis. 5. Hyperlipidemia. 6. Hypertension. 7. History of degenerative joint disease. 8. History of hard of hearing. RECOMMENDATION AND DISCUSSION: I recommend to continue current medication, continue symptomatic treatment. Closely monitor with Cardiothoracic Surgery. Otherwise, incentive spirometry, DVT prophylaxis. Further recommendations to follow. MMODL / IJN: [id number] /
[2017-11-23 20:18] LABS: Glucose,Whole Blood 145 mg/dL (75-99)
[2017-11-23] MEDS: FINASTERIDE 5 MG TAB PO SCH (21:43)
[2017-11-23] MEDS: LORazepam 0.5 MG TAB PO SCH (21:43)
[2017-11-23] MEDS: ATORVASTATIN 10 MG TAB PO SCH (21:43)
[2017-11-23] MEDS: TAMSULOSIN 0.4 MG CAP.ER.24H PO SCH (21:44)
[2017-11-23] MEDS: MONTELUKAST 10 MG TAB PO SCH (21:44)
[2017-11-24] MEDS: ALBUTEROL NEBULIZED 2.5 MG/3 ML INHALATION PRN (00:05)
[2017-11-24] MEDS: HEPARIN SODIUM,PORCINE 5,000 UNIT/ML 1 ML VIAL SQ SCH ×3 (00:18→16:00)
[2017-11-24] MEDS: KETOROLAC 30 MG/ML 1 ML VIAL IVP SCH ×2 (00:18→05:40)
[2017-11-24] MEDS: IPRATROPIUM-ALBUTEROL 3 ML NEB INHALATION PRN ×2 (04:16→23:54)
--- NOTE | 2017-11-24 06:29 | XR ---
INDICATION: Postoperative left diaphragmatic hernia repair COMPARISON: CXR 11/23/16 FINDINGS: Single frontal view of the chest is provided. Left-sided chest tube is stable. There is persistent subcutaneous emphysema along the left chest wall. No significant pneumothorax is visualized, although evaluation is limited by portable technique. Lung volumes are decreased with bibasilar atelectasis. No evidence of significant pleural effusion. Cardiomediastinal silhouette is stable. There is no evidence of pulmonary vascular congestion. No acute osseous findings. IMPRESSION: 1. Previously seen small left apical pneumothorax is not well-visualized on today's exam. Otherwise stable exam.
[2017-11-24] MEDS: SODIUM CHLORIDE 0.9% 1,000 ML IV SCH (06:37)
[2017-11-24 06:59] LABS: Glucose,Whole Blood 96 mg/dL (75-99)
[2017-11-24 07:21] LABS: Basophils % (A) 0 %; Eosinophils # (A) 0.2 k/uL (0-0.7); Eosinophils % (A) 2 %; HCT 39.5 % (39.0-53.0); HGB 12.5 gm/dL (13.0-17.5); Lymphocytes # (A) 0.9 k/uL (1.0-4.8); Lymphocytes % (A) 7 %; MCH 29.6 pg (25.0-35.0); MCHC 31.6 g/dL (31.0-37.0); MCV 93.5 fL (80.0-100.0); Mean Platelet Volume 6.8; Monocytes # (A) 0.8 k/uL (0-1.0); Monocytes % (A) 7 %; Neutrophils # (A) 10.2 k/uL (1.3-7.7); Neutrophils % (A) 82 %; Platelet Count 352 k/uL (150-450); RBC 4.22 m/uL (4.30-5.90); RDW 12.4 % (11.5-15.5); WBC 12.4 k/uL (3.8-10.6)
[2017-11-24 07:29] LABS: Anion Gap 6 mmol/L; Blood Urea Nitrogen 19 mg/dL (9-20); Calcium 8.2 mg/dL (8.4-10.2); Carbon Dioxide 28 mmol/L (22-30); Chloride 102 mmol/L (98-107); Glucose 102 mg/dL (74-99); Potassium 3.7 mmol/L (3.5-5.1); Sodium 136 mmol/L (137-145)
[2017-11-24] MEDS: BUDESONIDE 0.5 MG/2 ML NEBU INHALATION SCH ×2 (08:00→19:46)
[2017-11-24] MEDS: IPRATROPIUM-ALBUTEROL 3 ML NEB INHALATION SCH ×4 (08:00→19:46)
[2017-11-24] MEDS: INDAPAMIDE 1.25 MG TAB PO SCH (08:28)
[2017-11-24] MEDS: methylPREDNISolone SOD SUCCI 40 MG/ML 1 ML VIAL IV SCH (08:29)
[2017-11-24] MEDS: MECLIZINE 25 MG TAB PO SCH (08:29)
[2017-11-24] MEDS: BENZONATATE 100 MG CAP PO SCH ×3 (08:29→21:26)
[2017-11-24] MEDS: PANTOPRAZOLE 40 MG TABLET PO SCH (08:29)
--- NOTE | 2017-11-24 09:29 | P.PN ---
Subjective Progress Note Date: 11/24/17 Principal diagnosis: Lung/diaphragmatic hernia, left side. History of COPD, previous tobacco dependence, hypertension, hyperlipidemia, prostate disorder, previous hernia repairs. POD #2 left thoracotomy closure of diaphragmatic hernia with patch and repair of costochondral dislocation with subsequent lung herniation. Patient is currently sitting up in bed in no acute distress. States he had a lot of pain last night. Patient had urinary retention yesterday requiring placement of Paulson catheter. Objective - Vital Signs Vital signs: Vital Signs Temp 98.3 F 11/24/17 07:33 Pulse 92 11/24/17 08:23 Resp 20 11/24/17 07:33 BP 171/78 11/24/17 07:33 Pulse Ox 99 11/24/17 08:00 Intake & Output 11/23/17 11/24/17 11/24/17 18:59 06:59 18:59 Intake Total 360 180 Output Total 1560 25 Balance -1200 -25 180 Weight 92.079 kg Intake: Oral 360 180 Output: Chest Tube Drainage 140 Chest Tube Left Lower 140 Anterior Chest Drainage 170 25 Left 30 25 Left Chest 140 Urine 1250 Straight 1250 Other: Voiding Method Indwelling Catheter - Constitutional General appearance: Present: cooperative, no acute distress - Respiratory Details: Lungs sounds diminished bilaterally. Respirations even, nonlabored. Currently on 3 L nasal cannula with oxygen saturation 90%. Able to achieve 750 mL on his incentive spirometry. Left pleural chest tube to waterseal, 25 mL thin serous drainage overnight, 40 mL in the last 24 hours. No air leak present. - Cardiovascular Details: S1, S2 present. Regular rate and rhythm. Palpable peripheral pulses bilaterally. No edema present. No calf pain or tenderness noted. - Gastrointestinal Gastrointestinal Comment(s): Abdomen soft, nontender, nondistended. Active bowel sounds 4 quadrants. Tolerating diet. - Genitourinary Genitourinary Comment(s): Paul[place] present draining clear, yellow urine. - Integumentary Integumentary Comment(s): Skin is warm, dry, pink with evidence of good perfusion. - Neurologic Neurologic: Present: CNII-XII intact - Musculoskeletal Musculoskeletal: Present: gait normal, strength equal bilaterally - Psychiatric Psychiatric: Present: A&O x's 3, appropriate affect, intact judgment & insight - Allied health notes Allied health notes reviewed: nursing - Labs CBC & Chem 7: 11/24/17 06:45 11/24/17 06:45 Labs: Abnormal Lab Results - Last 24 Hours (Table) 11/23/17 11/23/17 11/23/17 Range/Units 11:18 16:30 20:17 WBC (3.8-10.6) k/uL RBC (4.30-5.90) m/uL Hgb (13.0-17.5) gm/dL Neutrophils # (1.3-7.7) k/uL Lymphocytes # (1.0-4.8) k/uL Sodium (137-145) mmol/L Glucose (74-99) mg/dL POC Glucose (mg/dL) 136 H 126 H 145 H (75-99) mg/dL Calcium (8.4-10.2) mg/dL 11/24/17 11/24/17 Range/Units 06:45 06:45 WBC 12.4 H (3.8-10.6) k/uL RBC 4.22 L (4.30-5.90) m/uL Hgb 12.5 L (13.0-17.5) gm/dL Neutrophils # 10.2 H (1.3-7.7) k/uL Lymphocytes # 0.9 L (1.0-4.8) k/uL Sodium 136 L (137-145) mmol/L Glucose 102 H (74-99) mg/dL POC Glucose (mg/dL) (75-99) mg/dL Calcium 8.2 L (8.4-10.2) mg/dL Microbiology - Last 24 Hours (Table) 11/23/17 13:46 Gram Stain - Preliminary Sputum - Imaging and Cardiology Chest x-ray: report reviewed, image reviewed Assessment and Plan (1) Hypertension Current Visit: Yes Status: Chronic Code(s): I10 - ESSENTIAL (PRIMARY) HYPERTENSION SNOMED Code(s): 16903669 (2) Hyperlipidemia Current Visit: Yes Status: Chronic Code(s): E78.5 - HYPERLIPIDEMIA, UNSPECIFIED SNOMED Code(s): 92190757 (3) Prostate disorder Current Visit: Yes Status: Chronic Code(s): N42.9 - DISORDER OF PROSTATE, UNSPECIFIED SNOMED Code(s): 11986370 (4) Tobacco dependence in remission Current Visit: No Status: Resolved Code(s): F17.201 - NICOTINE DEPENDENCE, UNSPECIFIED, IN REMISSION SNOMED Code(s): 812241160 (5) History of hernia repair Current Visit: No Status: Resolved Code(s): Z98.890 - OTHER SPECIFIED POSTPROCEDURAL STATES; Z87.19 - PERSONAL HISTORY OF OTHER DISEASES OF THE DIGESTIVE SYSTEM SNOMED Code(s): 11740224819557 (6) Acute exacerbation of chronic obstructive airways disease Current Visit: Yes Status: Acute Code(s): J44.1 - CHRONIC OBSTRUCTIVE PULMONARY DISEASE W (ACUTE) EXACERBATION SNOMED Code(s): 562612636 (7) Diaphragmatic hernia Current Visit: Yes Status: Acute Code(s): K44.9 - DIAPHRAGMATIC HERNIA WITHOUT OBSTRUCTION OR GANGRENE SNOMED Code(s): 24343628 Plan: 1. Will discontinue left pleural chest tube. 2. Medical comorbidities to be managed by primary care service. 3. Antibiotics, steroids, bronchodilators per pulmonology. 4. Wean O2 as tolerated. Incentive spirometry ordered, encourage use. 5. Encourage continued smoking cessation. 6. GI/DVT prophylaxis. 7. 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 Patient to be controlled with oral pain medication. 8. More recommendations to follow. Time with Patient: Greater than 30
[2017-11-24] MEDS: INSULIN ASPART 100 UNIT/ML 1 ML 10 ML VIAL SQ SCH ×2 (10:04→13:54)
[2017-11-24] MEDS: traMADol 50 MG TAB PO SCH ×4 (10:39→21:26)
[2017-11-24 11:47] LABS: Glucose,Whole Blood 115 mg/dL (75-99)
[2017-11-24] MEDS ORDERED: IBUPROFEN 600 MG TAB PO SCH (13:00)
[2017-11-24] MEDS ORDERED: POLYETHYLENE GLYCOL 3350 17 GM POWD.PACK PO PRN (13:16)
[2017-11-24] MEDS: HYDROcodone/APAP 5-325MG 1 EACH TAB PO PRN (13:59)
--- NOTE | 2017-11-24 14:02 | P.PN ---
Subjective Patient was admitted for diaphragmatic hernia repair. His chest about is out today patient does have crackles on lung exam may be related to supplement any significant edema mostly on the left side. Patient is also being treated for COPD exacerbation. Patient says he is constipated but as per the nursing report patient did have a bowel movement yesterday does have good bowel sounds. Constitutional: Denied any fatigue denied any fever. Cardio vascular: denied any chest pain, palpitations Gastrointestinal denied any nausea vomiting Pulmonary: Denied any shortness of breath cough Neurologic denied any new focal deficits Objective - Vital Signs Vital signs: Vital Signs Temp 98.3 F 11/24/17 07:33 Pulse 92 11/24/17 12:28 Resp 20 11/24/17 07:33 BP 171/78 11/24/17 07:33 Pulse Ox 99 11/24/17 08:00 Intake & Output 11/23/17 11/24/17 11/24/17 18:59 06:59 18:59 Intake Total 360 180 Output Total 1560 25 15 Balance -1200 -25 165 Weight 92.079 kg Intake: Oral 360 180 Output: Chest Tube Drainage 140 Chest Tube Left Lower 140 Anterior Chest Drainage 170 25 15 Left 30 25 15 Left Chest 140 Urine 1250 Straight 1250 Other: Voiding Method Indwelling Catheter Indwelling Catheter - Exam PHYSICAL EXAMINATION: GENERAL: The patient is alert and oriented x3, not in any acute distress. Well developed, well nourished. HEENT: Pupils are round and equally reacting to light. EOMI. No scleral icterus. No conjunctival pallor. Normocephalic, atraumatic. No pharyngeal erythema. No thyromegaly. CARDIOVASCULAR: S1 and S2 present. No murmurs, rubs, or gallops. PULMONARY: Chest is clear to auscultation, no wheezing, crackles on the left side of the chest ABDOMEN: Soft, nontender, nondistended, normoactive bowel sounds. No palpable organomegaly. MUSCULOSKELETAL: No joint swelling or deformity. EXTREMITIES: No cyanosis, clubbing, or pedal edema. NEUROLOGICAL: Gross neurological examination did not reveal any focal deficits. SKIN: No rashes. - Labs CBC & Chem 7: 11/24/17 06:45 11/24/17 06:45 Labs: Abnormal Lab Results - Last 24 Hours (Table) 11/23/17 11/23/17 11/24/17 Range/Units 16:30 20:17 06:45 WBC 12.4 H (3.8-10.6) k/uL RBC 4.22 L (4.30-5.90) m/uL Hgb 12.5 L (13.0-17.5) gm/dL Neutrophils # 10.2 H (1.3-7.7) k/uL Lymphocytes # 0.9 L (1.0-4.8) k/uL Sodium (137-145) mmol/L Glucose (74-99) mg/dL POC Glucose (mg/dL) 126 H 145 H (75-99) mg/dL Calcium (8.4-10.2) mg/dL 11/24/17 11/24/17 Range/Units 06:45 11:45 WBC (3.8-10.6) k/uL RBC (4.30-5.90) m/uL Hgb (13.0-17.5) gm/dL Neutrophils # (1.3-7.7) k/uL Lymphocytes # (1.0-4.8) k/uL Sodium 136 L (137-145) mmol/L Glucose 102 H (74-99) mg/dL POC Glucose (mg/dL) 115 H (75-99) mg/dL Calcium 8.2 L (8.4-10.2) mg/dL Microbiology - Last 24 Hours (Table) 11/23/17 13:46 Gram Stain - Preliminary Sputum Assessment and Plan Plan: -Postoperative repair of complicated diaphragmatic hernia. I will discontinue ibuprofen since patient is on tramadol. Patient is on GI prophylaxis and DVT prophylaxis at this point of time. -COPD: Patient is being treated for COPD exacerbation continue with the steroid which will be switched to oral -Hyperlipidemia -hypertension and patient blood pressures elevated I'm discontinued IV fluids as patient is able to tolerate oral diet, hopefully that will help his blood pressures. -
[2017-11-24 20:30] LABS: Glucose,Whole Blood 142 mg/dL (75-99)
[2017-11-24] MEDS: LORazepam 0.5 MG TAB PO SCH (21:26)
[2017-11-24] MEDS: TAMSULOSIN 0.4 MG CAP.ER.24H PO SCH (21:26)
[2017-11-24] MEDS: MONTELUKAST 10 MG TAB PO SCH (21:26)
[2017-11-24] MEDS: ATORVASTATIN 10 MG TAB PO SCH (21:26)
[2017-11-24] MEDS: FINASTERIDE 5 MG TAB PO SCH (21:26)
[2017-11-25] MEDS: HEPARIN SODIUM,PORCINE 5,000 UNIT/ML 1 ML VIAL SQ SCH ×4 (00:26→23:01)
[2017-11-25] MEDS: HYDROcodone/APAP 5-325MG 1 EACH TAB PO PRN ×2 (00:27→05:46)
[2017-11-25] MEDS: IPRATROPIUM-ALBUTEROL 3 ML NEB INHALATION PRN (04:10)
[2017-11-25] MEDS: MECLIZINE 25 MG TAB PO SCH (07:34)
[2017-11-25] MEDS: INDAPAMIDE 1.25 MG TAB PO SCH (07:34)
[2017-11-25] MEDS: PANTOPRAZOLE 40 MG TABLET PO SCH (07:34)
[2017-11-25] MEDS: traMADol 50 MG TAB PO SCH ×5 (07:34→22:59)
[2017-11-25] MEDS: BENZONATATE 100 MG CAP PO SCH ×3 (07:34→22:58)
[2017-11-25] MEDS: predniSONE 20 MG TAB PO SCH (07:34)
--- NOTE | 2017-11-25 08:00 | XR ---
EXAMINATION TYPE: XR chest 1V DATE OF EXAM: 11/25/2017 HISTORY: Postoperative left diaphragmatic hernia repair.. REFERENCE: Previous study dated 11/24/2017. FINDINGS: The patient's left pleural drain has been removed. No definite pneumothorax is identified. There is bibasilar airspace disease either representing atelectasis or early consolidation. The heart is enlarged. I could not exclude a small left effusion. IMPRESSION: 1. BIBASILAR AIRSPACE DISEASE EITHER REPRESENTING ATELECTASIS OR EARLY CONSOLIDATION. 2. CARDIOMEGALY. 3. I COULD NOT EXCLUDE A SMALL, LEFT-SIDED EFFUSION.
[2017-11-25] MEDS: BUDESONIDE 0.5 MG/2 ML NEBU INHALATION SCH ×2 (08:02→20:02)
[2017-11-25] MEDS: IPRATROPIUM-ALBUTEROL 3 ML NEB INHALATION SCH ×4 (08:02→20:02)
--- NOTE | 2017-11-25 08:57 | P.PN ---
Subjective Progress Note Date: 11/24/17 Principal diagnosis: Large left-sided diaphragmatic hernia, severe acute left-sided chest wall and upper abdominal wall pain, acute left-sided diaphragmatic perforation, COPD exacerbation, acute on chronic hypoxic respiratory failure, purulent tracheobronchitis 11/24/2017, patient seen and evaluated examined, chest tube has been removed breathing is overall stable denies any sputum production denies any cough breathing more comfortably since the tube came out, sputum Gram stain results reviewed no organisms seen November 23 2017, patient seen and evaluated examined during the rounds he is postop day #1 of left diaphragmatic hernia repair along with mesh. He has a left-sided chest tube as well will she is connected to suction no air leak is present. Is currently being controlled with INSEMINATOR pump for pain also getting as needed pain medications as well he has limited respiratory effort however he is doing relatively better on IES able to pull up to a liter still coughed out the thick yellowish brown plug of phlegm which is being sent for Gram stain and culture of respiratory as well as the ER and has been instructed to send that sample. Chest x-ray performed today and unable to download and review it report is pending 11/22/2017, patient seen and evaluated examined during the rounds clinically doing much better in terms of breathing cuff congestion still get short of breath on activity and exertion breathing treatment and deep breathing sense incentive spirometry has been helping patient is scheduled for a left-sided diaphragmatic repair with mesh later on today by cardiothoracic surgery 11/21/2017, patient seen and evaluated examined care plan discussed with the patient and present bedside at length his cuff congestion shortness breath is improved patient remains on IV steroids and breathing treatments general surgery is following along with cardiothoracic surgery patient is being planned for the care of diaphragmatic hernia with mesh tomorrow, will plan to lower down the steroids continue breathing treatments and continue deep breathing exercise incentive spirometry 11/20/2017, patient seen and evaluated exam and cuff congestion shortness breath is improved he remains on high-dose IV steroids 60 mg every 6 and breathing treatments patient is currently doing deep breathing exercises incentive spirometry cardiothoracic surgery is planning for left diaphragmatic hernia repair on , patient would like to proceed with that Objective - Vital Signs Vital signs: Vital Signs Temp 97.8 F 11/25/17 07:29 Pulse 84 11/25/17 08:22 Resp 16 11/25/17 07:29 BP 155/102 11/25/17 07:29 Pulse Ox 94 L 11/25/17 07:29 Intake & Output 11/24/17 11/25/17 11/25/17 18:59 06:59 18:59 Intake Total 180 600 Output Total 865 80 20 Balance -685 520 -20 Intake: Oral 180 600 Output: Drainage 15 80 20 Left 15 80 20 Urine 850 Straight 800 Other: Voiding Method Indwelling Catheter Toilet # Voids 4 - Exam - Constitutional General appearance: Present: cooperative, no acute distress - Respiratory Details: Lungs sounds diminished bilaterally. Respirations even, nonlabored. Currently on 2 L nasal cannula with oxygen saturation 96%. On force expiration very fine wheezing are present, decreased air entry at the bases - Cardiovascular Details: S1, S2 present. Regular rate and rhythm. Palpable peripheral pulses. No edema present. No calf pain or tenderness noted. - Gastrointestinal Gastrointestinal Comment(s): Abdomen soft, nontender, nondistended. Active bowel sounds 4 quadrants. Tolerating diet. - Genitourinary Genitourinary Comment(s): Continues to void clear, yellow urine. - Integumentary Integumentary Comment(s): Skin warm, dry, pink with evidence of good perfusion. Slight ecchymotic area noted to left lateral abdomen. Which continued to improve with serial exam - Neurologic Neurologic: Present: CNII-XII intact - Musculoskeletal Musculoskeletal: Present: gait normal, strength equal bilaterally - Psychiatric Psychiatric: Present: A&O x's 3, appropriate affect, intact judgment & insight - Labs CBC & Chem 7: 11/24/17 06:45 11/24/17 06:45 Labs: Abnormal Lab Results - Last 24 Hours (Table) 11/24/17 11/24/17 Range/Units 11:45 20:12 POC Glucose (mg/dL) 115 H 142 H (75-99) mg/dL Microbiology - Last 24 Hours (Table) 11/23/17 13:46 Gram Stain - Preliminary Sputum Assessment and Plan Assessment: Acute COPD exacerbation and purulent tracheobronchitis Left-sided diaphragmatic hernia, acute with herniation of abdominal content including omentum into the thoracic cavity on the left side status post repair with mesh, postop day #2 Small left-sided pleural effusion likely reactive Large left-sided bruising and ecchymosis is significantly improved Dyslipidemia Hypertension hypertensive cardiovascular disease Severe COPD Plan: Continue breathing treatments deep breathing exercise Pain Management with INSEMINATOR and intermittently for breakthrough pain off of Antibiotics off of IV steroids, Cardiothoracic evaluation results and reports reviewed patient is status post left diaphragmatic hernia repair on 11/22/2017 reviewed sputum for Gram stain and culture Time with Patient: Greater than 30
--- NOTE | 2017-11-25 09:02 | P.PN ---
Subjective Progress Note Date: 11/25/17 Principal diagnosis: Large left-sided diaphragmatic hernia, severe acute left-sided chest wall and upper abdominal wall pain, acute left-sided diaphragmatic perforation, COPD exacerbation, acute on chronic hypoxic respiratory failure, purulent tracheobronchitis 11/25/2017, patient seen and evaluated examined during the rounds clinically overall remains stable but does complaining of a relatively more pain at the operative site pain is slightly more intense since the pain medicines have been tapered down, slight more short of breath but however unable to produce any sputum hemodynamics and vitals overall stable 11/24/2017, patient seen and evaluated examined, chest tube has been removed breathing is overall stable denies any sputum production denies any cough breathing more comfortably since the tube came out, sputum Gram stain results reviewed no organisms seen November 23 2017, patient seen and evaluated examined during the rounds he is postop day #1 of left diaphragmatic hernia repair along with mesh. He has a left-sided chest tube as well will she is connected to suction no air leak is present. Is currently being controlled with LIBRARY ASSOCIATE pump for pain also getting as needed pain medications as well he has limited respiratory effort however he is doing relatively better on IES able to pull up to a liter still coughed out the thick yellowish brown plug of phlegm which is being sent for Gram stain and culture of respiratory as well as the ER and has been instructed to send that sample. Chest x-ray performed today and unable to download and review it report is pending 11/22/2017, patient seen and evaluated examined during the rounds clinically doing much better in terms of breathing cuff congestion still get short of breath on activity and exertion breathing treatment and deep breathing sense incentive spirometry has been helping patient is scheduled for a left-sided diaphragmatic repair with mesh later on today by cardiothoracic surgery 11/21/2017, patient seen and evaluated examined care plan discussed with the patient and present bedside at length his cuff congestion shortness breath is improved patient remains on IV steroids and breathing treatments general surgery is following along with cardiothoracic surgery patient is being planned for the care of diaphragmatic hernia with mesh tomorrow, will plan to lower down the steroids continue breathing treatments and continue deep breathing exercise incentive spirometry 11/20/2017, patient seen and evaluated exam and cuff congestion shortness breath is improved he remains on high-dose IV steroids 60 mg every 6 and breathing treatments patient is currently doing deep breathing exercises incentive spirometry cardiothoracic surgery is planning for left diaphragmatic hernia repair on , patient would like to proceed with that Objective - Vital Signs Vital signs: Vital Signs Temp 97.8 F 11/25/17 07:29 Pulse 84 11/25/17 08:22 Resp 16 11/25/17 07:29 BP 155/102 11/25/17 07:29 Pulse Ox 94 L 11/25/17 07:29 Intake & Output 11/24/17 11/25/17 11/25/17 18:59 06:59 18:59 Intake Total 180 600 Output Total 865 80 20 Balance -685 520 -20 Intake: Oral 180 600 Output: Drainage 15 80 20 Left 15 80 20 Urine 850 Straight 800 Other: Voiding Method Indwelling Catheter Toilet # Voids 4 - Exam - Constitutional General appearance: Present: cooperative, no acute distress - Respiratory Details: Lungs sounds diminished bilaterally. Respirations even, nonlabored. Currently on room air with oxygen saturation 96%. On force expiration no wheezing are present, proved air entry at the bases compared to prior exam, the thoracotomy incision healing well nontender no discharge is present very mild surrounding erythema is seen which is expected finding - Cardiovascular Details: S1, S2 present. Regular rate and rhythm. Palpable peripheral pulses. No edema present. No calf pain or tenderness noted. - Gastrointestinal Gastrointestinal Comment(s): Abdomen soft, nontender, nondistended. Active bowel sounds 4 quadrants. Tolerating diet. - Genitourinary Genitourinary Comment(s): Continues to void clear, yellow urine. - Integumentary Integumentary Comment(s): Skin warm, dry, pink with evidence of good perfusion. Slight ecchymotic area noted to left lateral abdomen. Which continued to improve with serial exam - Neurologic Neurologic: Present: CNII-XII intact - Musculoskeletal Musculoskeletal: Present: gait normal, strength equal bilaterally - Psychiatric Psychiatric: Present: A&O x's 3, appropriate affect, intact judgment & insight - Labs CBC & Chem 7: 11/24/17 06:45 11/24/17 06:45 Labs: Abnormal Lab Results - Last 24 Hours (Table) 11/24/17 11/24/17 Range/Units 11:45 20:12 POC Glucose (mg/dL) 115 H 142 H (75-99) mg/dL Microbiology - Last 24 Hours (Table) 11/23/17 13:46 Gram Stain - Preliminary Sputum - Imaging and Cardiology Chest x-ray: report reviewed, image reviewed (on November 25 performed earlier this morning reviewed and compared with the prior x-ray basal atelectasis and a small left-sided pleural effusion cannot be excluded borderline cardiomegaly is seen, overall no significant changes noted compared to prior exam, patient would benefit from deep breathing) Assessment and Plan Assessment: Acute COPD exacerbation and purulent tracheobronchitis overall stable on breathing treatments culture results and reports are negative will hold on starting any antibiotics Left-sided diaphragmatic hernia, acute with herniation of abdominal content including omentum into the thoracic cavity on the left side status post repair with mesh, postop day #3 Small left-sided pleural effusion likely reactive Large left-sided bruising and ecchymosis is significantly improved Dyslipidemia Hypertension hypertensive cardiovascular disease Severe COPD Plan: Continue breathing treatments deep breathing exercise Pain Management with LIBRARY ASSOCIATE and intermittently for breakthrough pain off of Antibiotics off of IV steroids, Cardiothoracic evaluation results and reports reviewed patient is status post left diaphragmatic hernia repair on 11/22/2017 reviewed sputum for Gram stain and culture Time with Patient: Greater than 30
--- NOTE | 2017-11-25 09:16 | P.PN ---
Subjective Progress Note Date: 11/25/17 Principal diagnosis: Lung/diaphragmatic hernia, left side. History of COPD, previous tobacco dependence, hypertension, hyperlipidemia, prostate disorder, previous hernia repairs. POD #3 left thoracotomy closure of diaphragmatic hernia with patch and repair of costochondral dislocation with subsequent lung herniation. Patient is currently ambulating in the room in no acute distress. States pain is somewhat controlled with a day but he does have increase in pain at night. is at bedside, expresses concern about pain control going home. Objective - Vital Signs Vital signs: Vital Signs Temp 97.8 F 11/25/17 07:29 Pulse 84 11/25/17 08:22 Resp 16 11/25/17 07:29 BP 155/102 11/25/17 07:29 Pulse Ox 94 L 11/25/17 07:29 Intake & Output 11/24/17 11/25/17 11/25/17 18:59 06:59 18:59 Intake Total 180 600 Output Total 865 80 20 Balance -685 520 -20 Intake: Oral 180 600 Output: Drainage 15 80 20 Left 15 80 20 Urine 850 Straight 800 Other: Voiding Method Indwelling Catheter Toilet # Voids 4 - Constitutional General appearance: Present: cooperative, no acute distress - Respiratory Details: Lungs sounds diminished bilaterally. Respirations even, nonlabored. Currently on room air with oxygen saturation 94%. Able to achieve 1750 ml on his incentive spirometry. - Cardiovascular Details: S1, S2 present. Regular rate and rhythm. Palpable peripheral pulses bilaterally. No edema present. No calf pain or tenderness noted. - Gastrointestinal Gastrointestinal Comment(s): Abdomen soft, nontender, nondistended. Active bowel sounds 4 quadrants. Tolerating diet. Positive bowel movement. - Genitourinary Genitourinary Comment(s): Paulson was discontinued yesterday and patient has been able to void. - Integumentary Integumentary Comment(s): Left lateral chest incision well approximated with Dermabond. PITA drain present anterior chest wall with minimal serous drainage. Skin warm, dry, pink with evidence of good perfusion. - Neurologic Neurologic: Present: CNII-XII intact - Musculoskeletal Musculoskeletal: Present: gait normal, strength equal bilaterally - Psychiatric Psychiatric: Present: A&O x's 3, appropriate affect, intact judgment & insight - Allied health notes Allied health notes reviewed: nursing - Labs CBC & Chem 7: 11/24/17 06:45 11/24/17 06:45 Labs: Abnormal Lab Results - Last 24 Hours (Table) 11/24/17 11/24/17 Range/Units 11:45 20:12 POC Glucose (mg/dL) 115 H 142 H (75-99) mg/dL Microbiology - Last 24 Hours (Table) 11/23/17 13:46 Gram Stain - Preliminary Sputum - Imaging and Cardiology Chest x-ray: report reviewed, image reviewed Assessment and Plan (1) Hypertension Current Visit: Yes Status: Chronic Code(s): I10 - ESSENTIAL (PRIMARY) HYPERTENSION SNOMED Code(s): 44952545 (2) Hyperlipidemia Current Visit: Yes Status: Chronic Code(s): E78.5 - HYPERLIPIDEMIA, UNSPECIFIED SNOMED Code(s): 44455153 (3) Prostate disorder Current Visit: Yes Status: Chronic Code(s): N42.9 - DISORDER OF PROSTATE, UNSPECIFIED SNOMED Code(s): 72548564 (4) Tobacco dependence in remission Current Visit: No Status: Resolved Code(s): F17.201 - NICOTINE DEPENDENCE, UNSPECIFIED, IN REMISSION SNOMED Code(s): 375803221 (5) History of hernia repair Current Visit: No Status: Resolved Code(s): Z98.890 - OTHER SPECIFIED POSTPROCEDURAL STATES; Z87.19 - PERSONAL HISTORY OF OTHER DISEASES OF THE DIGESTIVE SYSTEM SNOMED Code(s): 11117211475426 (6) Acute exacerbation of chronic obstructive airways disease Current Visit: Yes Status: Acute Code(s): J44.1 - CHRONIC OBSTRUCTIVE PULMONARY DISEASE W (ACUTE) EXACERBATION SNOMED Code(s): 004420461 (7) Diaphragmatic hernia Current Visit: Yes Status: Acute Code(s): K44.9 - DIAPHRAGMATIC HERNIA WITHOUT OBSTRUCTION OR GANGRENE SNOMED Code(s): 03978836 Plan: 1. Medical comorbidities to be managed by primary care service. 2. Antibiotics, steroids, bronchodilators per pulmonology. 3. Encourage incentive spirometry use. 4. Encourage continued smoking cessation. 5. GI/DVT prophylaxis. 6. Pain medication adjusted. 7. Patient may be discharged home from our standpoint when okay with primary care service. May go home with PITA drain, patient/ were taught how to empty PITA drain. Drain will be discontinued in our office. Time with Patient: Greater than 30
--- NOTE | 2017-11-25 16:35 | P.DS ---
Providers Date of admission: 11/18/17 15:47 Attending physician: Lu Avendano Consults: 11/18/17 15:47 Consult Physician Routine Consulting Provider: Terrance Dumont Consult Reason/Comments: CVT Do you want consulting provider notified?: Yes Consult Physician Urgent Consulting Provider: Matt Moss Consult Reason/Comments: known Do you want consulting provider notified?: Yes 11/18/17 18:54 Consult Physician Routine Consulting Provider: Alfred Kidd Consult Reason/Comments: hiatal hernia Do you want consulting provider notified?: Yes Primary care physician: Matt Moss Hospital Course: Patient was admitted for diaphragmatic hernia repair. His chest about is out today patient does have crackles on lung exam may be related to supplement any significant edema mostly on the left side. Patient is also being treated for COPD exacerbation. Patient says he is constipated but as per the nursing report patient did have a bowel movement yesterday does have good bowel sounds. 11/25/2017 Patient is clinically doing well except for episodes of tachycardia because of which will check make sure he is not tachycardic before discharge. Patient's COPD is better patient is on oral steroids at this point of time patient will follow Dr. dillon Moss as an outpatient. Patient was cleared from cardiothoracic and pulmonary perspective. PHYSICAL EXAMINATION: GENERAL: The patient is alert and oriented x3, not in any acute distress. Well developed, well nourished. HEENT: Pupils are round and equally reacting to light. EOMI. No scleral icterus. No conjunctival pallor. Normocephalic, atraumatic. No pharyngeal erythema. No thyromegaly. CARDIOVASCULAR: S1 and S2 present. No murmurs, rubs, or gallops. PULMONARY: Chest is clear to auscultation, no wheezing or crackles. ABDOMEN: Soft, nontender, nondistended, normoactive bowel sounds. No palpable organomegaly. MUSCULOSKELETAL: No joint swelling or deformity. EXTREMITIES: No cyanosis, clubbing, or pedal edema. NEUROLOGICAL: Gross neurological examination did not reveal any focal deficits. SKIN: No rashes. Assessment and Plan Plan: -Postoperative repair of complicated diaphragmatic hernia. -COPD: Patient is being treated for COPD exacerbation -Hyperlipidemia -hypertension patient will be resumed back on lisinopril at 5 mg Patient Condition at Discharge: Fair Plan - Discharge Summary Discharge Rx Participant: Yes New Discharge Prescriptions: New Budesonide-Formot 160-4.5 Mcg [Symbicort 160-4.5 Mcg Inhaler] 2 puff INHALATION BID #1 inhaler predniSONE 10 mg PO DAILY #30 tab Continue Montelukast [Singulair] 10 mg PO HS Tamsulosin HCl [Flomax] 0.4 mg PO HS Meloxicam [Mobic] 15 mg PO DAILY PRN PRN Reason: Pain Meclizine [Antivert] 25 mg PO DAILY Lovastatin [Mevacor] 10 mg PO HS LORazepam [Ativan] 0.5 mg PO HS Ipratropium-Albuterol Nebulize [Duoneb 0.5 mg-3 mg/3 ml Soln] 3 ml INHALATION RT-QID HYDROcodone/APAP 10-325MG [[place] 10-325] 1 tab PO QID PRN PRN Reason: Pain Finasteride [Proscar] 5 mg PO HS Budesonide [Pulmicort] 0.5 mg INHALATION RT-BID Albuterol Inhaler [Ventolin Hfa Inhaler] 2 puff INHALATION RT-Q6H PRN PRN Reason: Shortness Of Breath Omeprazole 20 mg PO DAILY Benzonatate [Benzonatate Perle] 200 mg PO TID Changed Lisinopril [Zestril] 5 mg PO DAILY #0 Discontinued Indapamide [Lozol] 1.25 mg PO DAILY Discharge Medication List Albuterol Inhaler [Ventolin Hfa Inhaler] 2 puff INHALATION RT-Q6H PRN 11/18/17 [ History] Benzonatate [Benzonatate Perle] 200 mg PO TID 11/18/17 [History] Budesonide [Pulmicort] 0.5 mg INHALATION RT-BID 11/18/17 [History] Finasteride [Proscar] 5 mg PO HS 11/18/17 [History] HYDROcodone/APAP 10-325MG [[place] 10-325] 1 tab PO QID PRN 11/18/17 [History] Ipratropium-Albuterol Nebulize [Duoneb 0.5 mg-3 mg/3 ml Soln] 3 ml INHALATION RT -QID 11/18/17 [History] LORazepam [Ativan] 0.5 mg PO HS 11/18/17 [History] Lovastatin [Mevacor] 10 mg PO HS 11/18/17 [History] Meclizine [Antivert] 25 mg PO DAILY 11/18/17 [History] Meloxicam [Mobic] 15 mg PO DAILY PRN 11/18/17 [History] Montelukast [Singulair] 10 mg PO HS 11/18/17 [History] Omeprazole 20 mg PO DAILY 11/18/17 [History] Tamsulosin HCl [Flomax] 0.4 mg PO HS 11/18/17 [History] Budesonide-Formot 160-4.5 Mcg [Symbicort 160-4.5 Mcg Inhaler] 2 puff INHALATION BID #1 inhaler 11/25/17 [Rx] Lisinopril [Zestril] 5 mg PO DAILY #0 11/25/17 [Rx] predniSONE 10 mg PO DAILY #30 tab 11/25/17 [Rx] Follow up Appointment(s)/Referral(s): Khoi Avila MD [STAFF PHYSICIAN] - 1 Week Matt Moss MD [Primary Care Provider] - 1-2 days Activity/Diet/Wound Care/Special Instructions: Please remove chest tube dressing Sunday, Nov 26. Shower daily. No lotions/powders/ointments on incisions. Drain PITA twice daily and document the amounts. May remove dressing to get in the shower, replace dressing when out of shower. We will remove PITA in the office. Any fever >101F or purulent (yellow/green, thick, foul smelling) drainage needs to be reported to surgeon/DEVIL DOG. No driving while on narcotic pain medicine. Continue to use incentive spirometry 10 times every hour. Discharge Disposition: HOME SELF-CARE
[2017-11-25] MEDS: MONTELUKAST 10 MG TAB PO SCH (22:58)
[2017-11-25] MEDS: ATORVASTATIN 10 MG TAB PO SCH (22:58)
[2017-11-25] MEDS: FINASTERIDE 5 MG TAB PO SCH (22:58)
[2017-11-25] MEDS: TAMSULOSIN 0.4 MG CAP.ER.24H PO SCH (22:58)
[2017-11-25] MEDS: LORazepam 0.5 MG TAB PO SCH (22:58)
[2017-11-26] MEDS: ALBUTEROL NEBULIZED 2.5 MG/3 ML INHALATION PRN ×2 (00:07→03:33)
[2017-11-26 01:48] VITALS: RESP 16
[2017-11-26] MEDS: HYDROcodone/APAP 5-325MG 1 EACH TAB PO PRN ×3 (02:01→12:02)
[2017-11-26 06:49] LABS: Glucose,Whole Blood 82 mg/dL (75-99)
[2017-11-26] MEDS: BUDESONIDE 0.5 MG/2 ML NEBU INHALATION SCH (07:12)
[2017-11-26] MEDS: IPRATROPIUM-ALBUTEROL 3 ML NEB INHALATION SCH ×2 (07:12→11:12)
[2017-11-26 07:36] VITALS: BP 168/99; PULSE 88; TEMP 97.7
--- NOTE | 2017-11-26 08:20 | P.PN ---
Subjective Progress Note Date: 11/26/17 Principal diagnosis: Lung/diaphragmatic hernia, left side. History of COPD, previous tobacco dependence, hypertension, hyperlipidemia, prostate disorder, previous hernia repairs. POD #4 left thoracotomy closure of diaphragmatic hernia with patch and repair of costochondral dislocation with subsequent lung herniation. Patient is currently sitting in a chair in no acute distress. States pain is better controlled. No new concerns. Objective - Vital Signs Vital signs: Vital Signs Temp 97.7 F 11/26/17 07:34 Pulse 88 11/26/17 07:34 Resp 16 11/26/17 07:34 BP 168/99 11/26/17 07:34 Pulse Ox 95 11/26/17 07:34 Intake & Output 11/25/17 11/26/17 11/26/17 18:59 06:59 18:59 Output Total 20 15 Balance -20 -15 Output: Drainage 20 15 Left 20 15 Other: Voiding Method Toilet - Constitutional General appearance: Present: cooperative, no acute distress - Respiratory Details: lungs sounds diminished bilaterally. Respirations even, nonlabored. Currently on room air with oxygen saturations 92%. - Cardiovascular Details: S1, S2 present. Regular rate and rhythm. Palpable peripheral pulses bilaterally. No edema present. No calf pain or tenderness noted. - Gastrointestinal Gastrointestinal Comment(s): abdomen soft, nontender, nondistended. Active bowel sounds 4 quadrants. Tolerating diet. - Genitourinary Genitourinary Comment(s): continues to void clear, yellow urine. - Integumentary Integumentary Comment(s): left lateral wall chest incision well approximated. Left anterior chest with PITA drain present, draining minimal thin serous drainage. Skin warm, dry, pink with evidence of good perfusion. - Neurologic Neurologic: Present: CNII-XII intact - Musculoskeletal Musculoskeletal: Present: gait normal, strength equal bilaterally - Psychiatric Psychiatric: Present: A&O x's 3, appropriate affect, intact judgment & insight - Allied health notes Allied health notes reviewed: nursing - Labs CBC & Chem 7: 11/24/17 06:45 11/24/17 06:45 Labs: Microbiology - Last 24 Hours (Table) 11/23/17 13:46 Gram Stain - Final Sputum Sputum Culture - Final Assessment and Plan (1) Hypertension Current Visit: Yes Status: Chronic Code(s): I10 - ESSENTIAL (PRIMARY) HYPERTENSION SNOMED Code(s): 71127409 (2) Hyperlipidemia Current Visit: Yes Status: Chronic Code(s): E78.5 - HYPERLIPIDEMIA, UNSPECIFIED SNOMED Code(s): 79947395 (3) Prostate disorder Current Visit: Yes Status: Chronic Code(s): N42.9 - DISORDER OF PROSTATE, UNSPECIFIED SNOMED Code(s): 38481677 (4) Tobacco dependence in remission Current Visit: No Status: Resolved Code(s): F17.201 - NICOTINE DEPENDENCE, UNSPECIFIED, IN REMISSION SNOMED Code(s): 933284110 (5) History of hernia repair Current Visit: No Status: Resolved Code(s): Z98.890 - OTHER SPECIFIED POSTPROCEDURAL STATES; Z87.19 - PERSONAL HISTORY OF OTHER DISEASES OF THE DIGESTIVE SYSTEM SNOMED Code(s): 80377331470799 (6) Acute exacerbation of chronic obstructive airways disease Current Visit: Yes Status: Acute Code(s): J44.1 - CHRONIC OBSTRUCTIVE PULMONARY DISEASE W (ACUTE) EXACERBATION SNOMED Code(s): 013632094 (7) Diaphragmatic hernia Current Visit: Yes Status: Acute Code(s): K44.9 - DIAPHRAGMATIC HERNIA WITHOUT OBSTRUCTION OR GANGRENE SNOMED Code(s): 21508051 Plan: 1. Medical comorbidities to be managed by primary care service. 2. Antibiotics, steroids, bronchodilators per pulmonology. 3. Encourage incentive spirometry use. 4. Encourage continued smoking cessation. 5. GI/DVT prophylaxis. 6. Pain medication adjusted. 7. Patient may be discharged home from our standpoint when okay with primary care service. May go home with PITA drain, patient/ were taught how to empty PITA drain. Drain will be discontinued in our office. Time with Patient: Greater than 30
[2017-11-26] MEDS: HEPARIN SODIUM,PORCINE 5,000 UNIT/ML 1 ML VIAL SQ SCH (09:10)
[2017-11-26] MEDS: BENZONATATE 100 MG CAP PO SCH (09:11)
[2017-11-26] MEDS: MECLIZINE 25 MG TAB PO SCH (09:11)
[2017-11-26] MEDS: INDAPAMIDE 1.25 MG TAB PO SCH (09:11)
[2017-11-26] MEDS: PANTOPRAZOLE 40 MG TABLET PO SCH (09:11)
[2017-11-26] MEDS: predniSONE 20 MG TAB PO SCH (09:12)
[2017-11-26] MEDS: traMADol 50 MG TAB PO SCH (09:14)
[2017-11-26 11:25] LABS: Glucose,Whole Blood 85 mg/dL (75-99)
--- NOTE | 2017-11-26 11:33 | P.PN ---
Subjective Progress Note Date: 11/26/17 Principal diagnosis: Large left-sided diaphragmatic hernia, severe acute left-sided chest wall and upper abdominal wall pain, acute left-sided diaphragmatic perforation, COPD exacerbation, acute on chronic hypoxic respiratory failure, purulent tracheobronchitis 11/26/2017, seen eval reexamined during the rounds clinically patient is doing well the chest tube has been removed however still have a PITA drain which is to be removed sometime next week, respiratory status slightly better today severe due to pain is better under control patient will likely need some pain medicine at prescription for Tessalon Perles has been provided to the patient as well and does have a nebulizer machine at home along with the budesonide which she is using 2 times a day and DuoNeb 4 times a day patient has been advised to continue that also has been advised to continue deep breathing exercises incentive spirometry surgical services have cleared him also from discharge their point of view I reviewed the chest x-ray finding and the sputum culture finding with the patient as well 11/25/2017, patient seen and evaluated examined during the rounds clinically overall remains stable but does complaining of a relatively more pain at the operative site pain is slightly more intense since the pain medicines have been tapered down, slight more short of breath but however unable to produce any sputum hemodynamics and vitals overall stable 11/24/2017, patient seen and evaluated examined, chest tube has been removed breathing is overall stable denies any sputum production denies any cough breathing more comfortably since the tube came out, sputum Gram stain results reviewed no organisms seen November 23 2017, patient seen and evaluated examined during the rounds he is postop day #1 of left diaphragmatic hernia repair along with mesh. He has a left-sided chest tube as well will she is connected to suction no air leak is present. Is currently being controlled with BUSINESS ARCHITECT pump for pain also getting as needed pain medications as well he has limited respiratory effort however he is doing relatively better on IES able to pull up to a liter still coughed out the thick yellowish brown plug of phlegm which is being sent for Gram stain and culture of respiratory as well as the ER and has been instructed to send that sample. Chest x-ray performed today and unable to download and review it report is pending 11/22/2017, patient seen and evaluated examined during the rounds clinically doing much better in terms of breathing cuff congestion still get short of breath on activity and exertion breathing treatment and deep breathing sense incentive spirometry has been helping patient is scheduled for a left-sided diaphragmatic repair with mesh later on today by cardiothoracic surgery 11/21/2017, patient seen and evaluated examined care plan discussed with the patient and present bedside at length his cuff congestion shortness breath is improved patient remains on IV steroids and breathing treatments general surgery is following along with cardiothoracic surgery patient is being planned for the care of diaphragmatic hernia with mesh tomorrow, will plan to lower down the steroids continue breathing treatments and continue deep breathing exercise incentive spirometry 11/20/2017, patient seen and evaluated exam and cuff congestion shortness breath is improved he remains on high-dose IV steroids 60 mg every 6 and breathing treatments patient is currently doing deep breathing exercises incentive spirometry cardiothoracic surgery is planning for left diaphragmatic hernia repair on , patient would like to proceed with that Objective - Vital Signs Vital signs: Vital Signs Temp 97.7 F 11/26/17 07:34 Pulse 88 11/26/17 11:22 Resp 16 11/26/17 08:00 BP 168/99 11/26/17 07:34 Pulse Ox 95 11/26/17 07:34 Intake & Output 11/25/17 11/26/17 11/26/17 18:59 06:59 18:59 Intake Total 240 Output Total 20 15 5 Balance -20 -15 235 Intake: Oral 240 Output: Drainage 20 15 5 Left 20 15 5 Other: Voiding Method Toilet - Exam - Constitutional General appearance: Present: cooperative, no acute distress - Respiratory Details: Lungs sounds diminished bilaterally. Respirations even, nonlabored. Currently on room air with oxygen saturation 96%. On force expiration no wheezing are present, proved air entry at the bases compared to prior exam, the thoracotomy incision healing well nontender no discharge is present very mild surrounding erythema is seen which is expected finding - Cardiovascular Details: S1, S2 present. Regular rate and rhythm. Palpable peripheral pulses. No edema present. No calf pain or tenderness noted. - Gastrointestinal Gastrointestinal Comment(s): Abdomen soft, nontender, nondistended. Active bowel sounds 4 quadrants. Tolerating diet. - Genitourinary Genitourinary Comment(s): Continues to void clear, yellow urine. - Integumentary Integumentary Comment(s): Skin warm, dry, pink with evidence of good perfusion. Slight ecchymotic area noted to left lateral abdomen. Which continued to improve with serial exam - Neurologic Neurologic: Present: CNII-XII intact - Musculoskeletal Musculoskeletal: Present: gait normal, strength equal bilaterally - Psychiatric Psychiatric: Present: A&O x's 3, appropriate affect, intact judgment & insight - Labs CBC & Chem 7: 11/24/17 06:45 11/24/17 06:45 Labs: Microbiology - Last 24 Hours (Table) 11/23/17 13:46 Gram Stain - Final Sputum Sputum Culture - Final Assessment and Plan Assessment: Acute COPD exacerbation and purulent tracheobronchitis overall stable on breathing treatments culture results and reports are negative will hold on starting any antibiotics Left-sided diaphragmatic hernia, acute with herniation of abdominal content including omentum into the thoracic cavity on the left side status post repair with mesh, postop day #3 Small left-sided pleural effusion likely reactive Large left-sided bruising and ecchymosis is significantly improved Dyslipidemia Hypertension hypertensive cardiovascular disease Severe COPD Plan: Continue breathing treatments deep breathing exercise, can be discharged home from pulmonary standpoint and follow up with me next week x-ray finding in sputum culture finding have been reviewed with the patient at length Pain Management pain meds off of Antibiotics off of IV steroids, Cardiothoracic evaluation results and reports reviewed patient is status post left diaphragmatic hernia repair on 11/22/2017 reviewed sputum for Gram stain and culture Time with Patient: Greater than 30
--- NOTE | 2017-11-26 12:26 | P.DS ---
Providers Date of admission: 11/18/17 15:47 Attending physician: Lu Avendano Consults: 11/18/17 15:47 Consult Physician Routine Consulting Provider: Terrance Dumont Consult Reason/Comments: CVT Do you want consulting provider notified?: Yes Consult Physician Urgent Consulting Provider: Matt Moss Consult Reason/Comments: known Do you want consulting provider notified?: Yes 11/18/17 18:54 Consult Physician Routine Consulting Provider: Alfred Kidd Consult Reason/Comments: hiatal hernia Do you want consulting provider notified?: Yes Primary care physician: Matt Moss Hospital Course: Please refer to my discharge summary from yesterday Patient Condition at Discharge: Fair Plan - Discharge Summary Discharge Rx Participant: Yes New Discharge Prescriptions: New predniSONE 10 mg PO DAILY #30 tab traMADol HCl [Ultram] 100 mg PO QID #30 tab Continue Montelukast [Singulair] 10 mg PO HS Tamsulosin HCl [Flomax] 0.4 mg PO HS Meclizine [Antivert] 25 mg PO DAILY Lovastatin [Mevacor] 10 mg PO HS LORazepam [Ativan] 0.5 mg PO HS Ipratropium-Albuterol Nebulize [Duoneb 0.5 mg-3 mg/3 ml Soln] 3 ml INHALATION RT-QID Finasteride [Proscar] 5 mg PO HS Budesonide [Pulmicort] 0.5 mg INHALATION RT-BID Albuterol Inhaler [Ventolin Hfa Inhaler] 2 puff INHALATION RT-Q6H PRN PRN Reason: Shortness Of Breath Omeprazole 20 mg PO DAILY Benzonatate [Benzonatate Perle] 200 mg PO TID HYDROcodone/APAP 10-325MG [[place] 10-325] 1 tab PO QID PRN #30 tab PRN Reason: Pain Changed Lisinopril [Zestril] 10 mg PO DAILY #0 Discontinued Meloxicam [Mobic] 15 mg PO DAILY PRN PRN Reason: Pain Indapamide [Lozol] 1.25 mg PO DAILY Discharge Medication List Albuterol Inhaler [Ventolin Hfa Inhaler] 2 puff INHALATION RT-Q6H PRN 11/18/17 [ History] Benzonatate [Benzonatate Perle] 200 mg PO TID 11/18/17 [History] Budesonide [Pulmicort] 0.5 mg INHALATION RT-BID 11/18/17 [History] Finasteride [Proscar] 5 mg PO HS 11/18/17 [History] Ipratropium-Albuterol Nebulize [Duoneb 0.5 mg-3 mg/3 ml Soln] 3 ml INHALATION RT -QID 11/18/17 [History] LORazepam [Ativan] 0.5 mg PO HS 11/18/17 [History] Lovastatin [Mevacor] 10 mg PO HS 11/18/17 [History] Meclizine [Antivert] 25 mg PO DAILY 11/18/17 [History] Montelukast [Singulair] 10 mg PO HS 11/18/17 [History] Omeprazole 20 mg PO DAILY 11/18/17 [History] Tamsulosin HCl [Flomax] 0.4 mg PO HS 11/18/17 [History] predniSONE 10 mg PO DAILY #30 tab 11/25/17 [Rx] HYDROcodone/APAP 10-325MG [[place] 10-325] 1 tab PO QID PRN #30 tab 11/26/17 [Rx] Lisinopril [Zestril] 10 mg PO DAILY #0 11/26/17 [Rx] traMADol HCl [Ultram] 100 mg PO QID #30 tab 11/26/17 [Rx] Follow up Appointment(s)/Referral(s): Khoi Avila MD [STAFF PHYSICIAN] - 12/13/17 1:30 pm Matt Moss MD [Primary Care Provider] - 11/29/17 10:30 am Patient Instructions/Handouts: Arnold-Hernandez Drain Care (DC), COPD (Chronic Obstructive Pulmonary Disease) (DC) Activity/Diet/Wound Care/Special Instructions: Please remove chest tube dressing Sunday, Nov 26. Shower daily. No lotions/powders/ointments on incisions. Drain PITA twice daily and document the amounts. May remove dressing to get in the shower, replace dressing when out of shower. We will remove PITA in the office. Any fever >101F or purulent (yellow/green, thick, foul smelling) drainage needs to be reported to surgeon/[facility] REPAIR. No driving while on narcotic pain medicine. Continue to use incentive spirometry 10 times every hour. Discharge Disposition: HOME SELF-CARE
== END 2017-11-26 14:20 | disposition home or self-care (01) | DRG 327 ==
LOC: EC 11:48 → 3SUR 15:47
PROVIDERS: ADMIT Hospitalist; ATTEND Hospitalist
PROC: 0BUT0JZ Supplement Diaphragm with Synthetic Substitute, Open Approach (ICD-10-PCS; principal; 2017-11-22 11:30)
DX: K44.9 Diaphragmatic hernia without obstruction or gangrene (principal); J44.0 Chronic obstructive pulmonary disease with (acute) lower respiratory infection; J44.1 Chronic obstructive pulmonary disease with (acute) exacerbation; J45.901 Unspecified asthma with (acute) exacerbation; J98.4 Other disorders of lung; I11.9 Hypertensive heart disease without heart failure; J98.11 Atelectasis; J20.9 Acute bronchitis, unspecified; K57.30 Diverticulosis of large intestine without perforation or abscess without bleeding; E78.5 Hyperlipidemia, unspecified; F17.211 Nicotine dependence, cigarettes, in remission; M19.91 Primary osteoarthritis, unspecified site; R33.9 Retention of urine, unspecified; H81.09 Meniere's disease, unspecified ear; H91.90 Unspecified hearing loss, unspecified ear; N42.9 Disorder of prostate, unspecified; Z79.51 Long term (current) use of inhaled steroids; Z79.899 Other long term (current) drug therapy; Z91.048 Other nonmedicinal substance allergy status
CPT/HCPCS: 36415; 71045; 71260; 74177; 80048; 80053; 82550; 82553; 84484; 85025; 85610; 85730; 87070; 87205; 87502; 93005; 94640; 94760; 96361; 96374; 96375; 96376; 99285

== ENCOUNTER 2017-11-30 05:24 | Inpatient (IN) | payer MEDICARE ==
[2017-11-30] MEDS ORDERED: HYDROmorphone 2 MG/ML 1 ML SYRINGE IVP STA ×2 (05:27→07:22)
--- NOTE | 2017-11-30 05:32 | ED ---
Chest Pain HPI - General Source: patient, family, RN notes reviewed, old records reviewed - History of Present Illness MD Complaint: chest pain <Brian Canchola - Last Filed: 11/30/17 07:01> <Tony Sheridan - Last Filed: 11/30/17 09:14> - General Stated Complaint: KUNAL Time Seen by Provider: 11/30/17 05:24 - History of Present Illness Initial Comments: This is a 72-year-old male who was just discharged from the hospital after repair of a left diaphragmatic hernia who presents tonight with complaints of left shoulder and chest pain with some shortness of breath. He states the pain is between 8 and 10/10 severity sharp in nature he has a fevers chills or sweats. He was brought in by EMS. Pain does get increase with deep breathing and with movements. (Brian Canchola) - Related Data Home Medications Medication Instructions Recorded Confirmed Albuterol Inhaler [Ventolin Hfa 2 puff INHALATION RT-Q6H PRN 11/18/17 11/30/17 Inhaler] Benzonatate [Benzonatate Perle] 200 mg PO TID 11/18/17 11/30/17 Budesonide [Pulmicort] 0.5 mg INHALATION RT-BID 11/18/17 11/30/17 Finasteride [Proscar] 5 mg PO HS 11/18/17 11/30/17 Ipratropium-Albuterol Nebulize 3 ml INHALATION RT-QID 11/18/17 11/30/17 [Duoneb 0.5 mg-3 mg/3 ml Soln] LORazepam [Ativan] 0.5 mg PO HS 11/18/17 11/30/17 Lovastatin [Mevacor] 10 mg PO HS 11/18/17 11/30/17 Meclizine [Antivert] 25 mg PO DAILY 11/18/17 11/30/17 Montelukast [Singulair] 10 mg PO HS 11/18/17 11/30/17 Omeprazole 20 mg PO DAILY 11/18/17 11/30/17 Tamsulosin HCl [Flomax] 0.4 mg PO HS 11/18/17 11/30/17 predniSONE See Taper PO DAILY 11/30/17 11/30/17 traMADol HCl [Ultram] 50 - 100 mg PO QID PRN 11/30/17 11/30/17 Previous Rx's Medication Instructions Recorded HYDROcodone/APAP 10-325MG [[place] 1 tab PO QID PRN #30 tab 11/26/17 10-325] Lisinopril [Zestril] 10 mg PO DAILY #0 11/26/17 Allergies Allergy/AdvReac Type Severity Reaction Status Date / Time No Known Allergies Allergy Verified 11/30/17 07:45 Review of Systems ROS Other: All systems not noted in ROS Statement are negative. <Brian Canchola - Last Filed: 11/30/17 07:01> ROS Other: All systems not noted in ROS Statement are negative. <Tony Sheridan - Last Filed: 11/30/17 09:14> ROS Statement: Those systems with pertinent positive or pertinent negative responses have been documented in the HPI. EKG Findings - EKG Results: EKG: interpreted by ETHAN, sinus rhythm (Sinus rhythm with a rate of 80 HI interval 138 QRS duration 90 QT since QTC of 372/[address]-T wave changes. A unifocal PVC is noted.) <Brian Canchola - Last Filed: 11/30/17 07:01> Past Medical History Past Medical History: COPD, Hearing Disorder / Deafness, Hyperlipidemia, Hypertension, Prostate Disorder Additional Past Medical History / Comment(s): emphysema, menieres disease History of Any Multi-Drug Resistant Organisms: None Reported Past Surgical History: Hernia Repair, Tonsillectomy Additional Past Surgical History / Comment(s): hernia X2, cyst on hand, right foot Past Anesthesia/Blood Transfusion Reactions: No Reported Reaction Past Psychological History: No Psychological Hx Reported Smoking Status: Former smoker Past Alcohol Use History: None Reported Past Drug Use History: None Reported <Brian Canchola - Last Filed: 11/30/17 07:01> General Exam General appearance: alert, anxious, in distress Head exam: Present: atraumatic, normocephalic, normal inspection Eye exam: Present: normal appearance, PERRL, EOMI. Absent: scleral icterus, conjunctival injection, periorbital swelling ENT exam: Present: normal exam, mucous membranes moist Neck exam: Present: normal inspection. Absent: tenderness, meningismus, lymphadenopathy Respiratory exam: Present: normal lung sounds bilaterally, rhonchi (Rhonchi appreciated in the left lower lung field healing incisional wounds noted), chest wall tenderness. Absent: respiratory distress, wheezes, rales, stridor Cardiovascular Exam: Present: regular rate, normal rhythm, normal heart sounds. Absent: systolic murmur, diastolic murmur, rubs, gallop, clicks GI/Abdominal exam: Present: soft, normal bowel sounds, other (Arnold-Hernandez drain noted with minimal evidence of fluid). Absent: distended, tenderness, guarding, rebound, rigid Extremities exam: Present: normal inspection, full ROM, normal capillary refill. Absent: tenderness, pedal edema, joint swelling, calf tenderness Back exam: Present: normal inspection Neurological exam: Present: alert, oriented X3, CN II-XII intact Psychiatric exam: Present: normal affect, normal mood Skin exam: Present: warm, dry, intact, normal color. Absent: rash <Brian Canchola - Last Filed: 11/30/17 07:01> <Tony Sheridan - Last Filed: 11/30/17 09:14> - General Exam Comments Initial Comments: This is a well-developed well-nourished awake alert oriented times 3 male (Brian Canchola) Course <Brian Canchola - Last Filed: 11/30/17 07:01> <Tony Sheridan - Last Filed: 11/30/17 09:14> Vital Signs 11/30/17 11/30/17 11/30/17 05:26 05:55 06:32 Temperature 98.4 F Pulse Rate 74 78 72 Respiratory 18 20 22 Rate Blood Pressure 138/70 118/78 107/68 O2 Sat by Pulse 93 L 98 94 L Oximetry 11/30/17 11/30/17 11/30/17 07:17 07:27 08:00 Temperature 98.2 F Pulse Rate 80 75 95 Respiratory 20 20 20 Rate Blood Pressure 96/59 112/69 112/63 O2 Sat by Pulse 94 L 95 97 Oximetry 11/30/17 08:58 Temperature Pulse Rate 88 Respiratory 20 Rate Blood Pressure 115/73 O2 Sat by Pulse 96 Oximetry - Reevaluation(s) Reevaluation #1: 11/30/17 07:01 The patient is pending a CAT scan of the chest. The patient will be endorsed to Dr. Sheridan who will make the final disposition. (Brian Canchola) Chest Pain MDM <Brian Canchola - Last Filed: 11/30/17 07:01> <Tony Sheridan - Last Filed: 11/30/17 09:14> - MDM Patient was not tolerating the pain so we decided to admit the patient spoke with because no Dr. Echeverria he agreed to admit the patient. The nurse practitioner Estefania came down and saw the patient and pulled the drain. (Tony Sheridan) Disposition <Brian Canchola - Last Filed: 11/30/17 07:01> Time of Disposition: 09:14 <Tony Sheridan - Last Filed: 11/30/17 09:14> Clinical Impression: Postoperative pain Disposition: ADMITTED IP TO THIS HOSP Referrals: Quinton Gary DO [Primary Care Provider] - 1-2 days
[2017-11-30 05:55] LABS: ALT 56 U/L (21-72); AST 34 U/L (17-59); Albumin 3.7 g/dL (3.5-5.0); Alkaline Phosphatase 76 U/L (38-126); Amylase 39 U/L (30-110); Anion Gap 10 mmol/L; Blood Urea Nitrogen 23 mg/dL (9-20); Calcium 9.4 mg/dL (8.4-10.2); Carbon Dioxide 28 mmol/L (22-30); Chloride 94 mmol/L (98-107); Glucose 92 mg/dL (74-99); INR 1.1 (<1.2); Lipase 21 U/L (23-300); Magnesium 1.8 mg/dL (1.6-2.3); Partial Thromboplastin Time 22.4 sec (22.0-30.0); Potassium 4.4 mmol/L (3.5-5.1); Prothrombin Time 10.3 sec (9.0-12.0); Sodium 132 mmol/L (137-145); Total Bilirubin 0.9 mg/dL (0.2-1.3); Total Protein 6.5 g/dL (6.3-8.2)
[2017-11-30 05:58] LABS: Basophils # (A) 0.1 k/uL (0-0.2); Basophils % (A) 0 %; Eosinophils # (A) 0.1 k/uL (0-0.7); Eosinophils % (A) 1 %; HCT 48.3 % (39.0-53.0); Lymphocytes # (A) 1.7 k/uL (1.0-4.8); Lymphocytes % (A) 9 %; MCH 30.2 pg (25.0-35.0); MCHC 32.2 g/dL (31.0-37.0); MCV 93.8 fL (80.0-100.0); Mean Platelet Volume 6.3; Monocytes # (A) 1.1 k/uL (0-1.0); Monocytes % (A) 6 %; Neutrophils # (A) 15.8 k/uL (1.3-7.7); Neutrophils % (A) 83 %; Platelet Count 511 k/uL (150-450); RBC 5.15 m/uL (4.30-5.90); RDW 12.7 % (11.5-15.5)
[2017-11-30 05:59] LABS: HGB 15.5 gm/dL (13.0-17.5)
[2017-11-30 06:06] LABS: Creatine Kinase 55 U/L (55-170)
--- NOTE | 2017-11-30 06:06 | XR ---
EXAM: XR Chest, 1 View CLINICAL HISTORY: Reason: pain TECHNIQUE: Frontal view of the chest. COMPARISON: 11/25/2017 FINDINGS: Lungs: The lungs are poorly expanded with diminished lung volumes. Left basilar opacity is increased from previous exam. There is partial obscuration of the hemidiaphragm. Pulmonary vasculature is thought to be within normal limits. Pleural space: Unremarkable. No pneumothorax. Heart: The cardiac silhouette and mediastinal contours are stable. Mediastinum: See above. Bones/joints: Unremarkable. IMPRESSION: Poor lung expansion with bibasilar changes. The left basilar airspace disease is slightly more prominent from previous examination suggesting increased atelectasis or consolidation. Small left pleural effusion cannot be excluded.
[2017-11-30 06:19] LABS: Creatine Kinase MB 2.3 ng/mL (0.0-2.4); Troponin I <0.012 ng/mL (0.000-0.034)
[2017-11-30] MEDS ORDERED: RX INFO: IV CONTRAST WAS GIVEN 1 EACH MISC MISCELLANE PRN (07:01)
[2017-11-30] MEDS ORDERED: HYDROmorphone 0.5 MG/0.5 ML SYRINGE IVP STA (07:19)
[2017-11-30] MEDS ORDERED: SODIUM CHLORIDE 0.9% 500 ML IV STA (07:19)
--- NOTE | 2017-11-30 07:55 | CT ---
EXAMINATION TYPE: CT angio chest DATE OF EXAM: 11/30/2017 COMPARISON: 11/18/2017 HISTORY: Chest pain CT DLP: 378.3 mGycm. Automated Exposure Control for Dose Reduction was Utilized. CONTRAST: CTA scan of the thorax is performed with IV Contrast, patient injected with 74 mL of Omnipaque 350, p ulmonary embolism protocol. MIP Images are created on CT scanner and reviewed. FINDINGS: LUNGS: Moderate paraseptal and centrilobular emphysematous changes are seen, most pronounced within t he lung apices. Small left pleural effusion and reactive pleural thickening with subsegmental left ba silar atelectasis are seen. No pneumothorax. Minimal subpleural reticulation is seen at the right sunny g base with right basilar subsegmental atelectasis. Within the left upper lobe there is a 5 mm noncalcified pulmonary nodule on series 5 image 60. MEDIASTINUM: There is satisfactory enhancement of the pulmonary artery and its branches, there is no CT evidence for pulmonary embolism. There are no greater than 1 cm hilar or mediastinal lymph nodes. No cardiomegaly or pericardial effusion is seen. OTHER: Left chest wall subcutaneous emphysema is seen from the known recent left lung surgery. Left r ib thoracotomy changes are also seen. Mild multilevel degenerative changes of the thoracic spine are noted. IMPRESSION: 1. No evidence of pulmonary embolus. 2. Trace left pleural effusion, bibasilar subsegmental atelectasis (left greater than right), and mauricio ctive left pleural thickening from the recent surgery in addition to postoperative chest wall subcuta neous edema and left thoracotomy changes. No pneumothorax.
[2017-11-30] MEDS ORDERED: KETOROLAC 60 MG/2 ML VIAL IVP STA ×2 (08:16→08:17)
[2017-11-30] MEDS ORDERED: IPRATROPIUM-ALBUTEROL 3 ML NEB INHALATION STA (09:01)
[2017-11-30] MEDS ORDERED: SODIUM CHLORIDE 0.9% 1,000 ML IV ONE (09:14)
[2017-11-30 10:23] VITALS: BMI 27.3
--- NOTE | 2017-11-30 11:38 | P.GSCN ---
History of Present Illness Consult date: 11/30/17 Reason for Consult: Continued postoperative pain Requesting physician: Tony Sheridan History of present illness: This 72-year-old gentleman who is well-known to our service presented to the emergency room with uncontrolled postoperative pain. He was recently discharged on November 26 after a successful left thoracotomy closure of diaphragmatic hernia with patch and repair of costochondral dislocation with subsequent lung herniation on 11/22/2017. This patient's history includes chronic, progressive shortness of breath and left chest wall pain since approximately [place] after a bout of strenuous coughing. He also has a history of COPD, previous tobacco dependence, hypertension, hyperlipidemia, prostate disorder, and previous hernia repairs. He presented this admission with uncontrolled left shoulder and lateral chest wall pain. EKG was performed and demonstrated no ischemic ST changes. Troponin ordered and was negative. Chest x-ray demonstrated diminished lung volumes. CTA of the chest demonstrated no pulmonary embolism. The patient was admitted for observation by primary care services to try to regain better control of his pain. Dr. Avila was consulted secondary to his familiarity with this patient. Review of Systems 14 point review of systems was completed and was negative except as noted in the HPI. Past Medical History Past Medical History: COPD, Hearing Disorder / Deafness, Hyperlipidemia, Hypertension, Prostate Disorder Additional Past Medical History / Comment(s): emphysema, menieres disease History of Any Multi-Drug Resistant Organisms: None Reported Past Surgical History: Hernia Repair, Tonsillectomy Additional Past Surgical History / Comment(s): hernia X2, cyst on hand, right foot pin in great toe. Left thoracotomy closure of diaphragmatic hernia with patch, repair of costochondral dislocation with subsequent lung herniation October 2017 Past Anesthesia/Blood Transfusion Reactions: No Reported Reaction Past Psychological History: No Psychological Hx Reported Smoking Status: Former smoker Past Alcohol Use History: None Reported Past Drug Use History: None Reported - Past Family History Mother Family Medical History: Dementia Additional Family Medical History / Comment(s): breast cancer Medications and Allergies Home Medications Medication Instructions Recorded Confirmed Type Albuterol Inhaler [Ventolin Hfa 2 puff INHALATION RT-Q6H PRN 11/18/17 11/30/17 History Inhaler] Benzonatate [Benzonatate Perle] 200 mg PO TID 11/18/17 11/30/17 History Budesonide [Pulmicort] 0.5 mg INHALATION RT-BID 11/18/17 11/30/17 History Finasteride [Proscar] 5 mg PO HS 11/18/17 11/30/17 History Ipratropium-Albuterol Nebulize 3 ml INHALATION RT-QID 11/18/17 11/30/17 History [Duoneb 0.5 mg-3 mg/3 ml Soln] LORazepam [Ativan] 0.5 mg PO HS 11/18/17 11/30/17 History Lovastatin [Mevacor] 10 mg PO HS 11/18/17 11/30/17 History Meclizine [Antivert] 25 mg PO DAILY 11/18/17 11/30/17 History Montelukast [Singulair] 10 mg PO HS 11/18/17 11/30/17 History Omeprazole 20 mg PO DAILY 11/18/17 11/30/17 History Tamsulosin HCl [Flomax] 0.4 mg PO HS 11/18/17 11/30/17 History HYDROcodone/APAP 10-325MG [[place] 1 tab PO QID PRN #30 tab 11/26/17 11/30/17 Rx 10-325] Lisinopril [Zestril] 10 mg PO DAILY #0 11/26/17 11/30/17 Rx predniSONE See Taper PO DAILY 11/30/17 11/30/17 History traMADol HCl [Ultram] 50 - 100 mg PO QID PRN 11/30/17 11/30/17 History Allergies Allergy/AdvReac Type Severity Reaction Status Date / Time No Known Allergies Allergy Verified 11/30/17 07:45 Surgical - Exam Vital Signs Temp Pulse Resp BP Pulse Ox 98.4 F 74 18 138/70 93 L 11/30/17 05:26 11/30/17 05:26 11/30/17 05:26 11/30/17 05:26 11/30/17 05:26 - General well developed, well nourished, no distress, moderate pain - Eyes PERRL, normal ocular movement - ENT decreased hearing - Neck no masses, no bruits, trachea midline - Respiratory Lungs sounds clear but diminished bilaterally. Respirations even, nonlabored. Currently on 2 L nasal cannula oxygen saturation 96%. - Cardiovascular S1, S2 present. Regular rate and rhythm, sinus rhythm on telemetry. Palpable peripheral pulses bilaterally. No edema present. No Pain or tenderness noted. - Abdomen Abdomen: soft, non tender, bowel sounds - Genitourinary Deferred - Rectum Deferred - Integumentary PITA drain was present to left anterior chest, no drainage in the last 12 hours per . - Neurologic normal coordination, normal sensation - Musculoskeletal normal gait, normal posture - Psychiatric oriented to time, oriented to person, oriented to place, speech is normal, memory intact Results - Labs 11/30/17 05:20 11/30/17 05:20 Abnormal Lab Results - Last 24 Hours (Table) 11/30/17 11/30/17 Range/Units 05:20 05:20 WBC 19.0 H (3.8-10.6) k/uL Plt Count 511 H (150-450) k/uL Neutrophils # 15.8 H (1.3-7.7) k/uL Monocytes # 1.1 H (0-1.0) k/uL Sodium 132 L (137-145) mmol/L Chloride 94 L (98-107) mmol/L BUN 23 H (9-20) mg/dL Lipase 21 L (23-300) U/L Diabetes panel 11/30/17 Range/Units 05:20 Sodium 132 L (137-145) mmol/L Potassium 4.4 (3.5-5.1) mmol/L Chloride 94 L (98-107) mmol/L Carbon Dioxide 28 (22-30) mmol/L BUN 23 H (9-20) mg/dL Creatinine 1.00 (0.66-1.25) mg/dL Glucose 92 (74-99) mg/dL Calcium 9.4 (8.4-10.2) mg/dL AST 34 (17-59) U/L ALT 56 (21-72) U/L Alkaline Phosphatase 76 (38-126) U/L Total Protein 6.5 (6.3-8.2) g/dL Albumin 3.7 (3.5-5.0) g/dL Calcium panel 11/30/17 Range/Units 05:20 Calcium 9.4 (8.4-10.2) mg/dL Albumin 3.7 (3.5-5.0) g/dL Pituitary panel 11/30/17 Range/Units 05:20 Sodium 132 L (137-145) mmol/L Potassium 4.4 (3.5-5.1) mmol/L Chloride 94 L (98-107) mmol/L Carbon Dioxide 28 (22-30) mmol/L BUN 23 H (9-20) mg/dL Creatinine 1.00 (0.66-1.25) mg/dL Glucose 92 (74-99) mg/dL Calcium 9.4 (8.4-10.2) mg/dL Adrenal panel 11/30/17 Range/Units 05:20 Sodium 132 L (137-145) mmol/L Potassium 4.4 (3.5-5.1) mmol/L Chloride 94 L (98-107) mmol/L Carbon Dioxide 28 (22-30) mmol/L BUN 23 H (9-20) mg/dL Creatinine 1.00 (0.66-1.25) mg/dL Glucose 92 (74-99) mg/dL Calcium 9.4 (8.4-10.2) mg/dL Total Bilirubin 0.9 (0.2-1.3) mg/dL AST 34 (17-59) U/L ALT 56 (21-72) U/L Alkaline Phosphatase 76 (38-126) U/L Total Protein 6.5 (6.3-8.2) g/dL Albumin 3.7 (3.5-5.0) g/dL - Imaging Chest x-ray: report reviewed, image reviewed CT scan - chest: report reviewed, image reviewed Assessment and Plan (1) History of hernia repair Current Visit: Yes Status: Chronic Code(s): Z98.890 - OTHER SPECIFIED POSTPROCEDURAL STATES; Z87.19 - PERSONAL HISTORY OF OTHER DISEASES OF THE DIGESTIVE SYSTEM SNOMED Code(s): 42191831833092 (2) COPD (chronic obstructive pulmonary disease) Current Visit: Yes Status: Chronic Code(s): J44.9 - CHRONIC OBSTRUCTIVE PULMONARY DISEASE, UNSPECIFIED SNOMED Code(s): 24184659 (3) Postoperative pain Current Visit: Yes Status: Acute Code(s): G89.18 - OTHER ACUTE POSTPROCEDURAL PAIN SNOMED Code(s): 886849554 (4) Tobacco dependence in remission Current Visit: No Status: Resolved Code(s): F17.201 - NICOTINE DEPENDENCE, UNSPECIFIED, IN REMISSION SNOMED Code(s): 879653597 (5) Hyperlipidemia Current Visit: No Status: Chronic Code(s): E78.5 - HYPERLIPIDEMIA, UNSPECIFIED SNOMED Code(s): 09503580 (6) Hypertension Current Visit: No Status: Chronic Code(s): I10 - ESSENTIAL (PRIMARY) HYPERTENSION SNOMED Code(s): 39566152 (7) Prostate disorder Current Visit: No Status: Chronic Code(s): N42.9 - DISORDER OF PROSTATE, UNSPECIFIED SNOMED Code(s): 78037249 Plan: The patient was seen and examined in the emergency room. His diagnostics were reviewed. The case we discussed with Dr. Avila. The patient was seen in the office yesterday as the was concerned about his drainage from his PITA. At that time his pain was felt to be controlled. He has had no drainage from the PITA in the last 24 hours. The PITA was discontinued with dressing applied for serous leakage which is expected. The patient was given Toradol which helped his pain significantly. We will ordered Toradol [id number]. We would prefer NSAIDS/anti-inflammatory for pain control as it seems to work better for this patient. Wean O2 as tolerated. Encourage incentive spirometry use. Medical management per primary care services. Please contact us with any questions. Thank you for this consult. We will continue to monitor. Time with Patient: Greater than 30
[2017-11-30] MEDS ORDERED: KETOROLAC 30 MG/ML 1 ML VIAL IVP SCH (12:00)
[2017-11-30] MEDS ORDERED: ALBUTEROL NEBULIZED 2.5 MG/3 ML INHALATION PRN (12:18)
[2017-11-30] MEDS: KETOROLAC 30 MG/ML 1 ML VIAL IVP SCH ×2 (12:20→17:43)
[2017-11-30] MEDS: IPRATROPIUM-ALBUTEROL 3 ML NEB INHALATION SCH ×3 (13:13→20:10)
--- NOTE | 2017-11-30 14:01 | P.HPIM ---
History of Present Illness 71-year-old gentleman who had extensive thoracic surgery with left thoracotomy) diaphragmatic hernia costo- chondral dislocation and subsequent lung herniation and who has be extensive scarring and extending from upper abdomen into the check into the whole chest area came in with complains of chest pain which was not well controlled since his discharge. Patient does have history of COPD supposed to take 30 mg of prednisone today which will be started by a which for which he'll be started back on patient denied any fever chills patient had any cough and no CT angios the chest did not reveal any pneumonia although there is some atelectasis patient denied any dysuria nausea vomiting. Patient does have leukocytosis. Patient was started on ketorolac here after which his pain is better controlled which will be continued and patient will be on GI prophylaxis because of ketorolac will monitor him today if his pain is well-controlled patient will be discharged and etodolac. Patient is coming of the 10 x 10 pain extending from the upper abdomen into the chest area, with some pleuritic competent although his CT any of the chest is negative for pulmonary embolism. Review of Systems REVIEW OF SYSTEMS: CONSTITUTIONAL: No fever, no malaise, no fatigue. HEENT: No recent visual problems or hearing problems. Denied any sore throat. CARDIOVASCULAR: No chest pain, orthopnea, PND, no palpitations, no syncope. PULMONARY: No shortness of breath, no cough, no hemoptysis. GASTROINTESTINAL: No diarrhea, no nausea, no vomiting, no abdominal pain. Normoactive bowel sounds. NEUROLOGICAL: No headaches, no weakness, no numbness. HEMATOLOGICAL: Denies any bleeding or petechiae. GENITOURINARY: Denies any burning micturition, frequency, or urgency. MUSCULOSKELETAL/RHEUMATOLOGICAL: Denies any joint pain, swelling, or any muscle pain. ENDOCRINE: Denies any polyuria or polydipsia. The rest of the 14-point review of systems is negative. Past Medical History Past Medical History: COPD, Hearing Disorder / Deafness, Hyperlipidemia, Hypertension, Prostate Disorder Additional Past Medical History / Comment(s): emphysema, menieres disease History of Any Multi-Drug Resistant Organisms: None Reported Past Surgical History: Hernia Repair, Tonsillectomy Additional Past Surgical History / Comment(s): hernia X2, cyst on hand, right foot pin in great toe. Left thoracotomy closure of diaphragmatic hernia with patch, repair of costochondral dislocation with subsequent lung herniation October 2017 Past Anesthesia/Blood Transfusion Reactions: No Reported Reaction Past Psychological History: No Psychological Hx Reported Smoking Status: Former smoker Past Alcohol Use History: None Reported Past Drug Use History: None Reported - Past Family History Mother Family Medical History: Dementia Additional Family Medical History / Comment(s): breast cancer Medications and Allergies Home Medications Medication Instructions Recorded Confirmed Type Albuterol Inhaler [Ventolin Hfa 2 puff INHALATION RT-Q6H PRN 11/18/17 11/30/17 History Inhaler] Benzonatate [Benzonatate Perle] 200 mg PO TID 11/18/17 11/30/17 History Budesonide [Pulmicort] 0.5 mg INHALATION RT-BID 11/18/17 11/30/17 History Finasteride [Proscar] 5 mg PO HS 11/18/17 11/30/17 History Ipratropium-Albuterol Nebulize 3 ml INHALATION RT-QID 11/18/17 11/30/17 History [Duoneb 0.5 mg-3 mg/3 ml Soln] LORazepam [Ativan] 0.5 mg PO HS 11/18/17 11/30/17 History Lovastatin [Mevacor] 10 mg PO HS 11/18/17 11/30/17 History Meclizine [Antivert] 25 mg PO DAILY 11/18/17 11/30/17 History Montelukast [Singulair] 10 mg PO HS 11/18/17 11/30/17 History Omeprazole 20 mg PO DAILY 11/18/17 11/30/17 History Tamsulosin HCl [Flomax] 0.4 mg PO HS 11/18/17 11/30/17 History HYDROcodone/APAP 10-325MG [[place] 1 tab PO QID PRN #30 tab 11/26/17 11/30/17 Rx 10-325] Lisinopril [Zestril] 10 mg PO DAILY #0 11/26/17 11/30/17 Rx predniSONE See Taper PO DAILY 11/30/17 11/30/17 History traMADol HCl [Ultram] 50 - 100 mg PO QID PRN 11/30/17 11/30/17 History Allergies Allergy/AdvReac Type Severity Reaction Status Date / Time No Known Allergies Allergy Verified 02/02/18 07:45 Physical Exam Vitals: Vital Signs Temp Pulse Pulse Resp BP BP Pulse Ox 11/30/17 13:24 72 11/30/17 13:13 72 11/30/17 10:48 98.0 F 70 16 107/54 96 11/30/17 09:45 97 F L 79 16 93/56 97 11/30/17 09:25 84 11/30/17 09:15 96 11/30/17 08:58 88 20 115/73 96 11/30/17 08:00 95 20 112/63 97 11/30/17 07:27 75 20 112/69 95 11/30/17 07:17 98.2 F 80 20 96/59 94 L 11/30/17 06:32 72 22 107/68 94 L 11/30/17 05:55 78 20 118/78 98 11/30/17 05:26 98.4 F 74 18 138/70 93 L Intake and Output 11/29/17 11/30/17 11/30/17 22:59 06:59 14:59 Other: Weight 90.265 kg 86.5 kg Patient Weight 12/01/17 06:59 Weight 86.5 kg PHYSICAL EXAMINATION: GENERAL: The patient is alert and oriented x3, not in any acute distress. Well developed, well nourished. HEENT: Pupils are round and equally reacting to light. EOMI. No scleral icterus. No conjunctival pallor. Normocephalic, atraumatic. No pharyngeal erythema. No thyromegaly. CARDIOVASCULAR: S1 and S2 present. No murmurs, rubs, or gallops. PULMONARY: Chest is clear to auscultation, no wheezing or crackles. ABDOMEN: Soft, nontender, nondistended, normoactive bowel sounds. No palpable organomegaly . The site areas appear to be clear and there is an extensive scar extending from upper abdomen and thorax and upper back as mentioned above MUSCULOSKELETAL: No joint swelling or deformity. EXTREMITIES: No cyanosis, clubbing, or pedal edema. NEUROLOGICAL: Gross neurological examination did not reveal any focal deficits. SKIN: No rashes. Results CBC & Chem 7: 11/30/17 05:20 11/30/17 05:20 Labs: Abnormal Lab Results - Last 24 Hours (Table) 11/30/17 11/30/17 Range/Units 05:20 05:20 WBC 19.0 H (3.8-10.6) k/uL Plt Count 511 H (150-450) k/uL Neutrophils # 15.8 H (1.3-7.7) k/uL Monocytes # 1.1 H (0-1.0) k/uL Sodium 132 L (137-145) mmol/L Chloride 94 L (98-107) mmol/L BUN 23 H (9-20) mg/dL Lipase 21 L (23-300) U/L Thrombosis Risk Factor Assmnt - Choose All That Apply Any of the Below Risk Factors Present?: No Other Risk Factors: Yes Each Risk Factor Represents 2 Points: Age 61-74 years Thrombosis Risk Factor Assessment Total Risk Factor Score: 2 Thrombosis Risk Factor Assessment Level: Low Risk Assessment and Plan Plan: -Postoperative pain management: Patient will be started on ketorolac will continue to monitor and if pain is better controlled he'll be discharged tomorrow on oral etodolac as mentioned above patient underwent J-tube prophylaxis -COPD without any acute exacerbation and leukocytosis secondary to systemic strides which will be continued. -Hyperlipidemia -Hypertension
[2017-11-30] MEDS: predniSONE 10 MG TAB PO SCH (15:08)
[2017-11-30] MEDS: HYDROcodone/APAP 10-325MG 1 EACH TAB PO PRN ×2 (16:06→22:35)
[2017-11-30] MEDS: BENZONATATE 100 MG CAP PO SCH (16:07)
[2017-11-30] MEDS: BUDESONIDE 0.5 MG/2 ML NEBU INHALATION SCH (20:10)
[2017-11-30] MEDS: traMADol 50 MG TAB PO PRN (20:46)
[2017-11-30] MEDS: LORazepam 0.5 MG TAB PO SCH (20:46)
[2017-11-30] MEDS: MONTELUKAST 10 MG TAB PO SCH (20:47)
[2017-11-30] MEDS: FINASTERIDE 5 MG TAB PO SCH (20:47)
[2017-11-30] MEDS: TAMSULOSIN 0.4 MG CAP.ER.24H PO SCH (20:47)
[2017-11-30] MEDS: ATORVASTATIN 10 MG TAB PO SCH (20:47)
[2017-12-01] MEDS: BENZONATATE 100 MG CAP PO SCH ×4 (00:11→21:23)
[2017-12-01] MEDS: KETOROLAC 30 MG/ML 1 ML VIAL IVP SCH ×3 (00:11→11:34)
[2017-12-01] MEDS: HYDROcodone/APAP 10-325MG 1 EACH TAB PO PRN ×3 (04:10→15:46)
[2017-12-01] MEDS: IPRATROPIUM-ALBUTEROL 3 ML NEB INHALATION SCH ×4 (07:59→21:22)
[2017-12-01] MEDS: BUDESONIDE 0.5 MG/2 ML NEBU INHALATION SCH ×2 (07:59→21:22)
[2017-12-01] MEDS: MECLIZINE 25 MG TAB PO SCH (08:35)
[2017-12-01] MEDS: predniSONE 10 MG TAB PO SCH (08:35)
[2017-12-01] MEDS: traMADol 50 MG TAB PO PRN ×3 (08:38→21:22)
[2017-12-01 08:46] LABS: HCT 40.5 % (39.0-53.0); MCH 29.8 pg (25.0-35.0); MCV 93.1 fL (80.0-100.0); Mean Platelet Volume 6.7; Platelet Count 427 k/uL (150-450); RBC 4.36 m/uL (4.30-5.90); RDW 13.7 % (11.5-15.5); WBC 20.1 k/uL (3.8-10.6)
[2017-12-01] MEDS ORDERED: predniSONE 10 MG TAB PO SCH (09:00)
[2017-12-01 09:09] LABS: Anion Gap 8 mmol/L; Blood Urea Nitrogen 16 mg/dL (9-20); Calcium 8.9 mg/dL (8.4-10.2); Carbon Dioxide 25 mmol/L (22-30); Chloride 101 mmol/L (98-107); Glucose 155 mg/dL (74-99); Potassium 4.4 mmol/L (3.5-5.1); Sodium 134 mmol/L (137-145)
--- NOTE | 2017-12-01 09:35 | XR ---
EXAMINATION TYPE: XR chest 2V DATE OF EXAM: 12/01/2017 HISTORY: post thoracic surgery. REFERENCE: Previous study dated 11/30/2017. FINDINGS: There is continuing bibasilar atelectasis. Heart size upper limits of normal. I suspect a l eft effusion. IMPRESSION: 1. BIBASILAR ATELECTASIS. 2. SMALL LEFT-SIDED EFFUSION.
[2017-12-01] MEDS ORDERED: VANCOMYCIN IV PER PHARMACY 1 EACH MISC MISCELLANE PRN (09:55)
--- NOTE | 2017-12-01 09:55 | P.CNPUL ---
History of Present Illness Consult date: 12/01/17 Reason for consult: dyspnea, cough, chest pain, pneumonia, pleural effusion, abnormal CXR/CT Chief complaint: Left-sided chest pain, shortness of breath, cough History of present illness: Mr. Cheatham is a 72-year-old well-known to me this patient has end-stage lung disease secondary due to severe COPD emphysema patient recently discharged from the hospital after repair of the left acute diaphragm perforation repair. Patient was in fairly stable state of health in fact was seen earlier part of last week in the office he had a PITA drain with mild postoperative pain was fairly stable respiration one day prior to coming hospital patient Mimi acute onset of worsening of chest pain and felt like throat is closing with those problem patient presented emergency department was seen and evaluated exam and has been admitted into the hospital He was recently discharged on November 26 after a successful left thoracotomy closure of diaphragmatic hernia with patch and repair of costochondral dislocation with subsequent lung herniation on 11/22/2017. This patient's history includes chronic, progressive shortness of breath and left chest wall pain since approximately [place] after a bout of strenuous coughing. He also has a history of COPD, previous tobacco dependence, hypertension, hyperlipidemia , prostate disorder, and previous hernia repairs. He presented this admission with uncontrolled left shoulder and lateral chest wall pain. EKG was performed and demonstrated no ischemic ST changes. Troponin ordered and was negative. Chest x-ray demonstrated diminished lung volumes. CTA of the chest demonstrated no pulmonary embolism. Further detail of finding on CAT scan and chest x-ray as noted below Review of Systems All systems: negative Past Medical History Past Medical History: COPD, Hearing Disorder / Deafness, Hyperlipidemia, Hypertension, Prostate Disorder Additional Past Medical History / Comment(s): emphysema, menieres disease History of Any Multi-Drug Resistant Organisms: None Reported Past Surgical History: Hernia Repair, Tonsillectomy Additional Past Surgical History / Comment(s): hernia X2, cyst on hand, right foot pin in great toe. Left thoracotomy closure of diaphragmatic hernia with patch, repair of costochondral dislocation with subsequent lung herniation October 2017 Past Anesthesia/Blood Transfusion Reactions: No Reported Reaction Past Psychological History: No Psychological Hx Reported Smoking Status: Former smoker Past Alcohol Use History: None Reported Past Drug Use History: None Reported - Past Family History Mother Family Medical History: Dementia Additional Family Medical History / Comment(s): breast cancer Medications and Allergies Home Medications Medication Instructions Recorded Confirmed Type Albuterol Inhaler [Ventolin Hfa 2 puff INHALATION RT-Q6H PRN 11/18/17 11/30/17 History Inhaler] Benzonatate [Benzonatate Perle] 200 mg PO TID 11/18/17 11/30/17 History Budesonide [Pulmicort] 0.5 mg INHALATION RT-BID 11/18/17 11/30/17 History Finasteride [Proscar] 5 mg PO HS 11/18/17 11/30/17 History Ipratropium-Albuterol Nebulize 3 ml INHALATION RT-QID 11/18/17 11/30/17 History [Duoneb 0.5 mg-3 mg/3 ml Soln] LORazepam [Ativan] 0.5 mg PO HS 11/18/17 11/30/17 History Lovastatin [Mevacor] 10 mg PO HS 11/18/17 11/30/17 History Meclizine [Antivert] 25 mg PO DAILY 11/18/17 11/30/17 History Montelukast [Singulair] 10 mg PO HS 11/18/17 11/30/17 History Omeprazole 20 mg PO DAILY 11/18/17 11/30/17 History Tamsulosin HCl [Flomax] 0.4 mg PO HS 11/18/17 11/30/17 History HYDROcodone/APAP 10-325MG [[place] 1 tab PO QID PRN #30 tab 11/26/17 11/30/17 Rx 10-325] Lisinopril [Zestril] 10 mg PO DAILY #0 11/26/17 11/30/17 Rx Indapamide [Lozol] 1.25 mg PO DAILY 11/30/17 11/30/17 History predniSONE See Taper PO DAILY 11/30/17 11/30/17 History traMADol HCl [Ultram] 50 - 100 mg PO QID PRN 11/30/17 11/30/17 History Allergies Allergy/AdvReac Type Severity Reaction Status Date / Time No Known Allergies Allergy Verified 11/30/17 07:45 Physical Exam Vitals: Vital Signs Temp Pulse Pulse Resp BP BP Pulse Ox 12/01/17 08:15 77 16 12/01/17 07:59 75 16 94 L 12/01/17 07:00 98.1 F 65 16 114/58 95 11/30/17 22:19 97.8 F 80 16 113/75 11/30/17 20:20 75 11/30/17 20:10 71 16 95 11/30/17 18:40 18 11/30/17 16:26 80 11/30/17 16:17 80 11/30/17 15:00 98.4 F 80 18 130/74 96 11/30/17 13:24 72 11/30/17 13:13 72 11/30/17 10:48 98.0 F 70 16 107/54 96 Intake and Output 11/30/17 12/01/17 12/01/17 22:59 06:59 14:59 Other: # Voids 2 3 - General well developed, well nourished, no distress, moderate pain - Eyes PERRL, normal ocular movement - ENT decreased hearing - Neck no masses, no bruits, trachea midline - Respiratory Lungs sounds clear but diminished bilaterally. Left-sided basal crackles are noted with bronchial breath sound Respirations even, nonlabored. Currently on 2 L nasal cannula oxygen saturation 96%. - Cardiovascular S1, S2 present. Regular rate and rhythm, sinus rhythm on telemetry. Palpable peripheral pulses bilaterally. No edema present. No Pain or tenderness noted. - Abdomen Abdomen: soft, non tender, bowel sounds PITA drain was present to left anterior chest, no drainage in the last 12 hours per , remove already by the cardiothoracic surgery - Neurologic normal coordination, normal sensation - Musculoskeletal normal gait, normal posture - Psychiatric oriented to time, oriented to person, oriented to place, speech is normal, memory intact Results - Laboratory Findings CBC and BMP: 12/01/17 08:18 12/01/17 08:18 PT/INR, D-dimer PT 10.3 sec (9.0-12.0) 11/30/17 05:20 INR 1.1 (<1.2) 11/30/17 05:20 Abnormal lab findings: Abnormal Labs 11/30/17 11/30/17 12/01/17 05:20 05:20 08:18 WBC 19.0 H 20.1 H Plt Count 511 H Neutrophils # 15.8 H Monocytes # 1.1 H Sodium 132 L Chloride 94 L BUN 23 H Glucose Lipase 21 L 12/01/17 08:18 WBC Plt Count Neutrophils # Monocytes # Sodium 134 L Chloride BUN Glucose 155 H Lipase - Diagnostic Findings Chest x-ray: report reviewed, image reviewed (Chest x-ray performed Kai second revealed poor lung expansion with bibasilar atelectasis more so on the left side compared right and right side considered consolidation cannot be excluded very small left-sided pleural effusion, computed tomography scan of the chest performed Kai second revealed bilateral alveolitis-like changes or extensive emphysematous changes. A lateral lower lobe thick streaky infiltrates are present more so on the left side compared right side very small left-sided pleural effusion is noted finding suspicious of pneumonitis and bilateral lower lobe pneumonia) Assessment and Plan Assessment: Acute on chronic left-sided chest wall pain, postoperative with exacerbation related to left lower lobe pneumonia Bilateral alveolitis/pneumonitis Severe COPD emphysema Acute hypoxic respiratory failure related to above as well as ongoing inflammatory process and baseline severe COPD Leukocytosis (Diaphragmatic perforation status post repair with mesh Plan: Agree with IV gentle rehydration and pain control Bronchodilators and breathing treatment regular basis DVT prophylaxis and peptic ulcer disease prophylaxis Antibiotics with IV Rocephin and vancomycin IV steroids Further recommendations pending Time with Patient: Greater than 30
[2017-12-01] MEDS: cefTRIAXone IN SWFI 1,000 MG/10 ML SYRINGE IVP SCH (11:14)
[2017-12-01] MEDS: VANCOMYCIN 1,500 MG in SODIUM CHLORIDE 0.9% 250 ML IVPB SCH ×2 (11:14→21:22)
[2017-12-01] MEDS: AZITHROMYCIN 500 MG TAB PO SCH (11:14)
--- NOTE | 2017-12-01 11:52 | P.PN ---
Subjective Progress Note Date: 12/01/17 Principal diagnosis: Continued postoperative pain, status post left thoracotomy closure of diaphragmatic hernia with patch, repair of costochondral dislocation with subsequent lung herniation on 11/22/2017. History of COPD, previous tobacco dependence, hypertension, hyperlipidemia, prostate disorder, and previous hernia repairs. Patient's currently sitting up in bed in no acute distress. States pain is controlled on ordered medications. No new complaints at this time. Objective - Vital Signs Vital signs: Vital Signs Temp 98.1 F 12/01/17 07:00 Pulse 77 12/01/17 08:15 Resp 16 12/01/17 08:15 BP 114/58 12/01/17 07:00 Pulse Ox 94 L 12/01/17 07:59 Intake & Output 11/30/17 12/01/17 12/01/17 18:59 06:59 18:59 Intake Total 200 Balance 200 Weight 86.5 kg Intake: Oral 200 Other: # Voids 3 - Constitutional General appearance: Present: cooperative, no acute distress - Respiratory Details: Lungs sounds diminished bilaterally with coarse breath sounds in the left base. Respirations even, nonlabored. Currently on 2 L nasal cannula with oxygen saturation 97%. Able to achieve 2250 mL on his incentive spirometry. - Cardiovascular Details: S1, S2 present. Regular rate and rhythm. Palpable peripheral pulses bilaterally. No edema present. No calf pain or tenderness noted. - Gastrointestinal Gastrointestinal Comment(s): Abdomen soft, nontender, nondistended. Active bowel sounds 4 quadrants. Tolerating diet. - Genitourinary Genitourinary Comment(s): Continue to void clear, yellow urine. - Integumentary Integumentary Comment(s): Skin warm and dry with evidence of good perfusion. Left lateral chest incision well approximated Dermabond. PITA site with moderate amount serous drainage, dressing changed as needed. - Neurologic Neurologic: Present: CNII-XII intact - Musculoskeletal Musculoskeletal: Present: gait normal, strength equal bilaterally - Psychiatric Psychiatric: Present: A&O x's 3, appropriate affect, intact judgment & insight - Allied health notes Allied health notes reviewed: nursing - Labs CBC & Chem 7: 12/01/17 08:18 12/01/17 08:18 Labs: Abnormal Lab Results - Last 24 Hours (Table) 12/01/17 12/01/17 Range/Units 08:18 08:18 WBC 20.1 H (3.8-10.6) k/uL Sodium 134 L (137-145) mmol/L Glucose 155 H (74-99) mg/dL - Imaging and Cardiology Chest x-ray: report reviewed, image reviewed Assessment and Plan (1) History of hernia repair Current Visit: Yes Status: Chronic Code(s): Z98.890 - OTHER SPECIFIED POSTPROCEDURAL STATES; Z87.19 - PERSONAL HISTORY OF OTHER DISEASES OF THE DIGESTIVE SYSTEM SNOMED Code(s): 65960868310682 (2) COPD (chronic obstructive pulmonary disease) Current Visit: Yes Status: Chronic Code(s): J44.9 - CHRONIC OBSTRUCTIVE PULMONARY DISEASE, UNSPECIFIED SNOMED Code(s): 39417739 (3) Postoperative pain Current Visit: Yes Status: Acute Code(s): G89.18 - OTHER ACUTE POSTPROCEDURAL PAIN SNOMED Code(s): 580863860 (4) Tobacco dependence in remission Current Visit: No Status: Resolved Code(s): F17.201 - NICOTINE DEPENDENCE, UNSPECIFIED, IN REMISSION SNOMED Code(s): 339956504 (5) Hyperlipidemia Current Visit: No Status: Chronic Code(s): E78.5 - HYPERLIPIDEMIA, UNSPECIFIED SNOMED Code(s): 68893588 (6) Hypertension Current Visit: No Status: Chronic Code(s): I10 - ESSENTIAL (PRIMARY) HYPERTENSION SNOMED Code(s): 35439206 (7) Prostate disorder Current Visit: No Status: Chronic Code(s): N42.9 - DISORDER OF PROSTATE, UNSPECIFIED SNOMED Code(s): 38234604 Plan: 1. Continue pain medication as ordered. 2. Wean O2 as tolerated. 3. Encourage incentive spirometry use 10 times every hour. 4. Increase activity, ambulate in hallway. 5. Steroids, antibiotics, bronchodilators per pulmonology management. 6. Medical management of other comorbidities per primary care service. 7. Will continue to monitor patient daily. Time with Patient: Greater than 30
--- NOTE | 2017-12-01 18:00 | P.PN ---
Subjective 71-year-old admitted secondary to pain management and the pulmonology valid the patient for possibility of pneumonia and pulmonary believes patient has left lower lobe pneumonia, most probably obtain is being pneumococcal pneumonia and patient is on antibiotics and the patient will be made in patient today. His pain is well-controlled patient will be started on etodolac as a substitute for ketorolac. Constitutional: Denied any fatigue denied any fever. Cardio vascular: denied any chest pain, palpitations Gastrointestinal denied any nausea vomiting Pulmonary: Denied any shortness of breath cough Neurologic denied any new focal deficits Objective - Vital Signs Vital signs: Vital Signs Temp 98.2 F 12/01/17 15:00 Pulse 80 12/01/17 17:06 Resp 16 12/01/17 15:00 BP 122/71 12/01/17 15:00 Pulse Ox 95 12/01/17 15:00 Intake & Output 11/30/17 12/01/17 12/01/17 18:59 06:59 18:59 Intake Total 200 500 Balance 200 500 Weight 86.5 kg Intake: Oral 200 500 Other: Voiding Method Toilet # Voids 3 1 - Exam PHYSICAL EXAMINATION: GENERAL: The patient is alert and oriented x3, not in any acute distress. Well developed, well nourished. HEENT: Pupils are round and equally reacting to light. EOMI. No scleral icterus. No conjunctival pallor. Normocephalic, atraumatic. No pharyngeal erythema. No thyromegaly. CARDIOVASCULAR: S1 and S2 present. No murmurs, rubs, or gallops. PULMONARY: Chest is clear to auscultation, no wheezing or crackles. ABDOMEN: Soft, nontender, nondistended, normoactive bowel sounds. No palpable organomegaly . The site areas appear to be clear and there is an extensive scar extending from upper abdomen and thorax and upper back as mentioned above MUSCULOSKELETAL: No joint swelling or deformity. EXTREMITIES: No cyanosis, clubbing, or pedal edema. NEUROLOGICAL: Gross neurological examination did not reveal any focal deficits. SKIN: No rashes. - Labs CBC & Chem 7: 12/01/17 08:18 12/01/17 08:18 Labs: Abnormal Lab Results - Last 24 Hours (Table) 12/01/17 12/01/17 Range/Units 08:18 08:18 WBC 20.1 H (3.8-10.6) k/uL Sodium 134 L (137-145) mmol/L Glucose 155 H (74-99) mg/dL Assessment and Plan Plan: -Postoperative pain management: Patient was started on etodolac -COPD without any acute exacerbation and left lower lobe pneumonia: Patient was started on antibiotics. Patient will be set continued on systemic steroids -Hyperlipidemia -Hypertension
[2017-12-01] MEDS: methylPREDNISolone SOD SUCCI 40 MG/ML 1 ML VIAL IV SCH (21:22)
[2017-12-01] MEDS: MONTELUKAST 10 MG TAB PO SCH (21:22)
[2017-12-01] MEDS: LORazepam 0.5 MG TAB PO SCH (21:22)
[2017-12-01] MEDS: ETODOLAC 400 MG TAB PO SCH (21:22)
[2017-12-01] MEDS: ATORVASTATIN 10 MG TAB PO SCH (21:23)
[2017-12-01] MEDS: FINASTERIDE 5 MG TAB PO SCH (21:23)
[2017-12-01] MEDS: TAMSULOSIN 0.4 MG CAP.ER.24H PO SCH (21:23)
[2017-12-02] MEDS: traMADol 50 MG TAB PO PRN ×3 (05:39→18:25)
[2017-12-02 07:12] LABS: HCT 39.4 % (39.0-53.0); HGB 12.5 gm/dL (13.0-17.5); MCH 30.4 pg (25.0-35.0); MCHC 31.7 g/dL (31.0-37.0); Platelet Count 420 k/uL (150-450); RDW 12.6 % (11.5-15.5); WBC 17.1 k/uL (3.8-10.6)
[2017-12-02] MEDS: BENZONATATE 100 MG CAP PO SCH ×3 (07:23→20:48)
[2017-12-02] MEDS: AZITHROMYCIN 500 MG TAB PO SCH (07:23)
[2017-12-02] MEDS: HYDROcodone/APAP 10-325MG 1 EACH TAB PO PRN ×2 (07:24→13:52)
[2017-12-02] MEDS: ETODOLAC 400 MG TAB PO SCH ×2 (07:25→20:49)
[2017-12-02] MEDS: MECLIZINE 25 MG TAB PO SCH (07:26)
[2017-12-02] MEDS: cefTRIAXone IN SWFI 1,000 MG/10 ML SYRINGE IVP SCH (07:26)
[2017-12-02] MEDS: methylPREDNISolone SOD SUCCI 40 MG/ML 1 ML VIAL IV SCH ×2 (07:27→20:49)
[2017-12-02] MEDS: VANCOMYCIN 1,500 MG in SODIUM CHLORIDE 0.9% 250 ML IVPB SCH ×2 (07:27→20:48)
[2017-12-02] MEDS: BUDESONIDE 0.5 MG/2 ML NEBU INHALATION SCH ×2 (07:37→20:41)
[2017-12-02] MEDS: IPRATROPIUM-ALBUTEROL 3 ML NEB INHALATION SCH ×4 (07:39→20:41)
[2017-12-02 07:43] LABS: Anion Gap 10 mmol/L; Blood Urea Nitrogen 14 mg/dL (9-20); Calcium 8.8 mg/dL (8.4-10.2); Carbon Dioxide 25 mmol/L (22-30); Chloride 100 mmol/L (98-107); Glucose 141 mg/dL (74-99); Potassium 4.6 mmol/L (3.5-5.1); Sodium 135 mmol/L (137-145)
--- NOTE | 2017-12-02 12:27 | P.PN ---
Subjective Progress Note Date: 12/02/17 Principal diagnosis: Continued postoperative pain, status post left thoracotomy closure of diaphragmatic hernia with patch, repair of costochondral dislocation with subsequent lung herniation on 11/22/2017. History of COPD, previous tobacco dependence, hypertension, hyperlipidemia, prostate disorder, Mnire's disease and previous hernia repairs. The patient is currently sitting to the edge of his bed in no acute distress. He rates his pain currently at 4 out of 5 on the pain scale, which she states that is much improved from yesterday. Objective - Vital Signs Vital signs: Vital Signs Temp 98.0 F 12/02/17 07:44 Pulse 88 12/02/17 12:01 Resp 18 12/02/17 08:00 BP 154/80 12/02/17 07:44 Pulse Ox 94 L 12/02/17 07:44 Intake & Output 12/01/17 12/02/17 12/02/17 18:59 06:59 18:59 Intake Total 1250 1400 600 Balance 1250 1400 600 Intake: Intake, IV Titration 1000 Amount Vancomycin 1,500 mg In 1000 Sodium Chloride 0.9% 250 ml @ 125 mls/hr IVPB Q12HR [facility] Rx#:[id number] Oral 1250 600 Other 400 Other: Voiding Method Toilet # Voids 1 3 - Constitutional General appearance: Present: cooperative, no acute distress - EENT ENT: Present: hard of hearing (Bilateral hearing aides.) - Neck Details: Neck supple, no JVD or lymphadenopathy. - Respiratory Details: Lung sounds essentially clear throughout, few scattered crackles to his left lower lobe. Respirations are symmetrical and nonlabored. He is achieving 2500 mL on his incentive spirometry. Oxygen saturation are 94% on room air. - Cardiovascular Details: Regular rhythm and rate. S1 and S2 present, negative for S3, gallop or murmur. Peripheral pulses palpable. No edema present. - Gastrointestinal Gastrointestinal Comment(s): Abdomen is soft, nontender and nondistended. Active bowel sounds all 4 abdominal quadrants. Tolerating oral intake. - Genitourinary Genitourinary Comment(s): Adequate urine output. Clear yellow urine. - Integumentary Integumentary Comment(s): Skin is warm, dry and pink. Left lateral thoracotomy incision clean dry and well approximated. No drainage or redness. - Neurologic Neurologic: Present: CNII-XII intact - Musculoskeletal Musculoskeletal: Present: gait normal, strength equal bilaterally - Psychiatric Psychiatric: Present: A&O x's 3, appropriate affect, intact judgment & insight - Allied health notes Allied health notes reviewed: nursing - Labs CBC & Chem 7: 12/02/17 06:31 18 06:31 Labs: Abnormal Lab Results - Last 24 Hours (Table) 12/02/17 12/02/17 Range/Units 06:31 06:31 WBC 17.1 H (3.8-10.6) k/uL RBC 4.10 L (4.30-5.90) m/uL Hgb 12.5 L (13.0-17.5) gm/dL Sodium 135 L (137-145) mmol/L Creatinine 0.64 L (0.66-1.25) mg/dL Glucose 141 H (74-99) mg/dL Assessment and Plan (1) Mnire's disease Current Visit: Yes Status: Acute Code(s): H81.09 - MENIERE'S DISEASE, UNSPECIFIED EAR SNOMED Code(s): 53935112 (2) Postoperative pain Current Visit: Yes Status: Acute Code(s): G89.18 - OTHER ACUTE POSTPROCEDURAL PAIN SNOMED Code(s): 770846674 (3) COPD (chronic obstructive pulmonary disease) Current Visit: Yes Status: Chronic Code(s): J44.9 - CHRONIC OBSTRUCTIVE PULMONARY DISEASE, UNSPECIFIED SNOMED Code(s): 17900449 (4) History of hernia repair Current Visit: Yes Status: Chronic Code(s): Z98.890 - OTHER SPECIFIED POSTPROCEDURAL STATES; Z87.19 - PERSONAL HISTORY OF OTHER DISEASES OF THE DIGESTIVE SYSTEM SNOMED Code(s): 25197089692267 (5) Hyperlipidemia Current Visit: No Status: Chronic Code(s): E78.5 - HYPERLIPIDEMIA, UNSPECIFIED SNOMED Code(s): 16499878 (6) Hypertension Current Visit: No Status: Chronic Code(s): I10 - ESSENTIAL (PRIMARY) HYPERTENSION SNOMED Code(s): 63896257 (7) Prostate disorder Current Visit: No Status: Chronic Code(s): N42.9 - DISORDER OF PROSTATE, UNSPECIFIED SNOMED Code(s): 29759006 Plan: 1. Continue pain medications per when necessary orders. 2. Wean O2 as tolerated. Pulmonary management and recommendations per Dr. Moss. 3. Encourage incentive spirometry use every hour while awake. 4. Increase activity, ambulate in hallway. 5. Steroids, antibiotics, bronchodilators per pulmonology management. 6. Medical management of other comorbidities per primary care service. 7. Will continue to monitor patient daily. Time with Patient: Greater than 30
--- NOTE | 2017-12-02 14:39 | P.PN ---
Subjective 71-year-old admitted secondary to pain management and the pulmonology valid the patient for possibility of pneumonia and pulmonary believes patient has left lower lobe pneumonia, most probably obtain is being pneumococcal pneumonia and patient is on antibiotics and the patient will be made in patient today. His pain is well-controlled patient will be started on etodolac as a substitute for ketorolac. 12/02/2017 Pain is well controlled with present regimen. Continue with the IV antibiotics possibly of discharge tomorrow Constitutional: Denied any fatigue denied any fever. Cardio vascular: denied any chest pain, palpitations Gastrointestinal denied any nausea vomiting Pulmonary: Denied any shortness of breath cough Neurologic denied any new focal deficits Objective - Vital Signs Vital signs: Vital Signs Temp 98.0 F 12/02/17 07:44 Pulse 88 12/02/17 12:01 Resp 18 12/02/17 08:00 BP 154/80 12/02/17 07:44 Pulse Ox 94 L 12/02/17 07:44 Intake & Output 12/01/17 12/02/17 12/02/17 18:59 06:59 18:59 Intake Total 1250 1400 1530 Balance 1250 1400 1530 Intake: IV 250 Vancomycin 1,500 mg In 250 Sodium Chloride 0.9% 250 ml @ 125 mls/hr IVPB Q12HR [facility] Rx#:[id number] Intake, IV Titration 1000 Amount Vancomycin 1,500 mg In 1000 Sodium Chloride 0.9% 250 ml @ 125 mls/hr IVPB Q12HR [facility] Rx#:[id number] Oral 1250 1280 Other 400 Other: Voiding Method Toilet # Voids 1 3 3 - Exam PHYSICAL EXAMINATION: GENERAL: The patient is alert and oriented x3, not in any acute distress. Well developed, well nourished. HEENT: Pupils are round and equally reacting to light. EOMI. No scleral icterus. No conjunctival pallor. Normocephalic, atraumatic. No pharyngeal erythema. No thyromegaly. CARDIOVASCULAR: S1 and S2 present. No murmurs, rubs, or gallops. PULMONARY: Chest is clear to auscultation, no wheezing or crackles. ABDOMEN: Soft, nontender, nondistended, normoactive bowel sounds. No palpable organomegaly . The site areas appear to be clear and there is an extensive scar extending from upper abdomen and thorax and upper back as mentioned above MUSCULOSKELETAL: No joint swelling or deformity. EXTREMITIES: No cyanosis, clubbing, or pedal edema. NEUROLOGICAL: Gross neurological examination did not reveal any focal deficits. SKIN: No rashes. - Labs CBC & Chem 7: 12/02/17 06:31 12/02/17 06:31 Labs: Abnormal Lab Results - Last 24 Hours (Table) 12/02/17 12/02/17 Range/Units 06:31 06:31 WBC 17.1 H (3.8-10.6) k/uL RBC 4.10 L (4.30-5.90) m/uL Hgb 12.5 L (13.0-17.5) gm/dL Sodium 135 L (137-145) mmol/L Creatinine 0.64 L (0.66-1.25) mg/dL Glucose 141 H (74-99) mg/dL Assessment and Plan Plan: -Postoperative pain management: Patient was started on etodolac -COPD without any acute exacerbation and left lower lobe pneumonia: Patient was started on antibiotics. Patient will be set continued on systemic steroids -Hyperlipidemia -Hypertension
[2017-12-02] MEDS: LORazepam 0.5 MG TAB PO SCH (20:48)
[2017-12-02] MEDS: TAMSULOSIN 0.4 MG CAP.ER.24H PO SCH (20:48)
[2017-12-02] MEDS: FINASTERIDE 5 MG TAB PO SCH (20:49)
[2017-12-02] MEDS: ATORVASTATIN 10 MG TAB PO SCH (20:49)
[2017-12-02] MEDS: MONTELUKAST 10 MG TAB PO SCH (20:49)
[2017-12-03] MEDS: traMADol 50 MG TAB PO PRN ×3 (01:31→14:04)
[2017-12-03] MEDS: HYDROcodone/APAP 10-325MG 1 EACH TAB PO PRN (05:29)
[2017-12-03] MEDS: IPRATROPIUM-ALBUTEROL 3 ML NEB INHALATION SCH ×2 (06:13→11:08)
[2017-12-03] MEDS: BUDESONIDE 0.5 MG/2 ML NEBU INHALATION SCH (06:13)
[2017-12-03 06:53] VITALS: BP 169/94; RESP 14; TEMP 98
[2017-12-03 07:58] LABS: Anion Gap 10 mmol/L; Blood Urea Nitrogen 15 mg/dL (9-20); Calcium 9.2 mg/dL (8.4-10.2); Carbon Dioxide 25 mmol/L (22-30); Chloride 101 mmol/L (98-107); Glucose 127 mg/dL (74-99); Potassium 4.2 mmol/L (3.5-5.1); Sodium 136 mmol/L (137-145)
[2017-12-03] MEDS ORDERED: VANCOMYCIN TROUGH DUE 1 EACH MISC MISCELLANE ONE (08:00)
[2017-12-03] MEDS: MECLIZINE 25 MG TAB PO SCH (08:16)
[2017-12-03] MEDS: ETODOLAC 400 MG TAB PO SCH (08:16)
[2017-12-03] MEDS: AZITHROMYCIN 500 MG TAB PO SCH (08:16)
[2017-12-03] MEDS: BENZONATATE 100 MG CAP PO SCH (08:16)
[2017-12-03] MEDS: cefTRIAXone IN SWFI 1,000 MG/10 ML SYRINGE IVP SCH (08:17)
[2017-12-03] MEDS: methylPREDNISolone SOD SUCCI 40 MG/ML 1 ML VIAL IV SCH (08:17)
--- NOTE | 2017-12-03 10:28 | P.PN ---
Subjective Progress Note Date: 12/03/17 Principal diagnosis: Continued postoperative pain, status post left thoracotomy closure of diaphragmatic hernia with patch, repair of costochondral dislocation with subsequent lung herniation on 11/22/2017. History of COPD, previous tobacco dependence, hypertension, hyperlipidemia, prostate disorder, and previous hernia repairs. Patient's currently ambulating in the room in no acute distress. States pain is controlled on ordered medications. No new complaints at this time. Objective - Vital Signs Vital signs: Vital Signs Temp 98 F 12/03/17 06:50 Pulse 91 12/03/17 06:50 Resp 14 12/03/17 07:35 BP 169/94 12/03/17 06:50 Pulse Ox 94 L 12/03/17 06:50 Intake & Output 12/02/17 12/03/17 12/03/17 18:59 06:59 18:59 Intake Total 207 250 Balance 2070 250 Intake: IV 250 125 Vancomycin 1,500 mg In 250 125 Sodium Chloride 0.9% 250 ml @ 125 mls/hr IVPB Q12HR [facility] Rx#:[id number] Intake, IV Titration 125 Amount Vancomycin 1,500 mg In 125 Sodium Chloride 0.9% 250 ml @ 125 mls/hr IVPB Q12HR [facility] Rx#:[id number] Oral 1820 Other: # Voids 2 3 - Constitutional General appearance: Present: cooperative, no acute distress - Respiratory Details: Lungs sounds clear to auscultation. Respirations even, nonlabored. Currently on room air with oxygen saturation 94%. Able to achieve 2000 mL on his incentive spirometry. - Cardiovascular Details: S1, S2 present. Regular rate and rhythm. Palpable peripheral pulses bilaterally. No edema present. No calf pain or tenderness noted. - Gastrointestinal Gastrointestinal Comment(s): Abdomen soft, nontender, nondistended. Active bowel sounds present 4 quadrants. Tolerating diet. - Genitourinary Genitourinary Comment(s): Continues to void clear, yellow urine. - Integumentary Integumentary Comment(s): Skin is warm and dry with evidence of good perfusion. Left lateral chest wall incision well approximated Dermabond. Left PITA site well approximated without any drainage. - Neurologic Neurologic: Present: CNII-XII intact - Musculoskeletal Musculoskeletal: Present: gait normal, strength equal bilaterally - Psychiatric Psychiatric: Present: A&O x's 3, appropriate affect, intact judgment & insight - Allied health notes Allied health notes reviewed: nursing - Labs CBC & Chem 7: 12/02/17 06:31 12/03/17 07:24 Labs: Abnormal Lab Results - Last 24 Hours (Table) 12/03/17 Range/Units 07:24 Sodium 136 L (137-145) mmol/L Glucose 127 H (74-99) mg/dL Assessment and Plan (1) History of hernia repair Current Visit: Yes Status: Chronic Code(s): Z98.890 - OTHER SPECIFIED POSTPROCEDURAL STATES; Z87.19 - PERSONAL HISTORY OF OTHER DISEASES OF THE DIGESTIVE SYSTEM SNOMED Code(s): 41488183165054 (2) COPD (chronic obstructive pulmonary disease) Current Visit: Yes Status: Chronic Code(s): J44.9 - CHRONIC OBSTRUCTIVE PULMONARY DISEASE, UNSPECIFIED SNOMED Code(s): 68750573 (3) Postoperative pain Current Visit: Yes Status: Acute Code(s): G89.18 - OTHER ACUTE POSTPROCEDURAL PAIN SNOMED Code(s): 592245480 (4) Tobacco dependence in remission Current Visit: No Status: Resolved Code(s): F17.201 - NICOTINE DEPENDENCE, UNSPECIFIED, IN REMISSION SNOMED Code(s): 327225398 (5) Hyperlipidemia Current Visit: No Status: Chronic Code(s): E78.5 - HYPERLIPIDEMIA, UNSPECIFIED SNOMED Code(s): 70988173 (6) Hypertension Current Visit: No Status: Chronic Code(s): I10 - ESSENTIAL (PRIMARY) HYPERTENSION SNOMED Code(s): 00879495 (7) Prostate disorder Current Visit: No Status: Chronic Code(s): N42.9 - DISORDER OF PROSTATE, UNSPECIFIED SNOMED Code(s): 92593562 Plan: 1. Continue pain medication as ordered. 2. Encourage incentive spirometry use 10 times every hour. 3. Increase activity, ambulate in hallway. 4. Steroids, antibiotics, bronchodilators per pulmonology management. 5. Medical management of other comorbidities per primary care service. 6. Patient may be discharged to home from our standpoint. Time with Patient: Greater than 30
[2017-12-03] MEDS ORDERED: VANCOMYCIN 1,750 MG in SODIUM CHLORIDE 0.9% 250 ML IVPB SCH ×2 (10:30→18:00)
[2017-12-03] MEDS: VANCOMYCIN 1,500 MG in SODIUM CHLORIDE 0.9% 250 ML IVPB SCH (10:35)
[2017-12-03 11:12] VITALS: PULSE 88
--- NOTE | 2017-12-03 12:13 | P.PN ---
Subjective Progress Note Date: 12/02/17 (Late entry note) Principal diagnosis: Bilateral pneumonia, acute hypoxic respiratory failure, severe COPD emphysema, acute perforation of left hemidiaphragm status post repair with mesh and diaphragmatic hernia 12/02/2017, patient seen and evaluated examined during the rounds, from respiratory standpoint severity of cough congestion is better sputum is now productive but very scanty amount is seen which is usually pearly gary in appearance still have mild degree or shortness of breath and chest pain with improved severe D though, continued to do deep breathing exercises incentive spirometry pain is slightly better Mr. Cheatham is a 72-year-old well-known to me this patient has end-stage lung disease secondary due to severe COPD emphysema patient recently discharged from the hospital after repair of the left acute diaphragm perforation repair. Patient was in fairly stable state of health in fact was seen earlier part of last week in the office he had a PITA drain with mild postoperative pain was fairly stable respiration one day prior to coming hospital patient Mimi acute onset of worsening of chest pain and felt like throat is closing with those problem patient presented emergency department was seen and evaluated exam and has been admitted into the hospital He was recently discharged on November 26 after a successful left thoracotomy closure of diaphragmatic hernia with patch and repair of costochondral dislocation with subsequent lung herniation on 11/22/2017. This patient's history includes chronic, progressive shortness of breath and left chest wall pain since approximately Rhys after a bout of strenuous coughing. He also has a history of COPD, previous tobacco dependence, hypertension, hyperlipidemia , prostate disorder, and previous hernia repairs. He presented this admission with uncontrolled left shoulder and lateral chest wall pain. EKG was performed and demonstrated no ischemic ST changes. Troponin ordered and was negative. Chest x-ray demonstrated diminished lung volumes. CTA of the chest demonstrated no pulmonary embolism. Further detail of finding on CAT scan and chest x-ray as noted below Objective - Vital Signs Vital signs: Blood pressure 1 5480, respiratory 18 pulse 88 temperature 90.8 saturation 94% Vital Signs - Exam ENERAL: The patient is alert and oriented x3, not in any acute distress. Well developed, well nourished. HEENT: Pupils are round and equally reacting to light. EOMI. No scleral icterus. No conjunctival pallor. Normocephalic, atraumatic. No pharyngeal erythema. No thyromegaly. CARDIOVASCULAR: S1 and S2 present. No murmurs, rubs, or gallops. PULMONARY: Chest is clear to auscultation, no wheezing or crackles. ABDOMEN: Soft, nontender, nondistended, normoactive bowel sounds. No palpable organomegaly . The site areas appear to be clear and there is an extensive scar extending from upper abdomen and thorax and upper back as mentioned above MUSCULOSKELETAL: No joint swelling or deformity. EXTREMITIES: No cyanosis, clubbing, or pedal edema. NEUROLOGICAL: Gross neurological examination did not reveal any focal deficits. SKIN: No rashes. - Labs CBC & Chem 7: 12/02/17 06:31 12/03/17 07:24 Labs: Abnormal Lab Results - Last 24 Hours (Table) 12/03/17 Range/Units 07:24 Sodium 136 L (137-145) mmol/L Glucose 127 H (74-99) mg/dL Assessment and Plan Assessment: Acute on chronic left-sided chest wall pain, postoperative with exacerbation related to left lower lobe pneumonia Bilateral alveolitis/pneumonitis Severe COPD emphysema Acute hypoxic respiratory failure related to above as well as ongoing inflammatory process and baseline severe COPD Leukocytosis (Diaphragmatic perforation status post repair with mesh Plan: Agree with IV gentle rehydration and pain control Bronchodilators and breathing treatment regular basis DVT prophylaxis and peptic ulcer disease prophylaxis Antibiotics with IV Rocephin and vancomycin IV steroids Further recommendations pending Time with Patient: Greater than 30
--- NOTE | 2017-12-03 12:18 | P.PN ---
Subjective Progress Note Date: 12/03/17 Principal diagnosis: Bilateral pneumonia, acute hypoxic respiratory failure, severe COPD emphysema, acute perforation of left hemidiaphragm status post repair with mesh and diaphragmatic hernia 12/03/2017, patient seen and evaluated examined care plan discussed with the patient at length patient has been on the antibiotics along with breathing treatments and IV steroid care plan discussed with RN as well as patient and at length pain is better cough is present and occasional intermittent pearly gary phlegm is present I have advised to send the sputum for culture if it's collectible and available he remains afebrile otherwise 12/02/2017, patient seen and evaluated examined during the rounds, from respiratory standpoint severity of cough congestion is better sputum is now productive but very scanty amount is seen which is usually pearly gary in appearance still have mild degree or shortness of breath and chest pain with improved severe D though, continued to do deep breathing exercises incentive spirometry pain is slightly better Mr. Cheatham is a 72-year-old well-known to me this patient has end-stage lung disease secondary due to severe COPD emphysema patient recently discharged from the hospital after repair of the left acute diaphragm perforation repair. Patient was in fairly stable state of health in fact was seen earlier part of last week in the office he had a PITA drain with mild postoperative pain was fairly stable respiration one day prior to coming hospital patient Mimi acute onset of worsening of chest pain and felt like throat is closing with those problem patient presented emergency department was seen and evaluated exam and has been admitted into the hospital He was recently discharged on November 26 after a successful left thoracotomy closure of diaphragmatic hernia with patch and repair of costochondral dislocation with subsequent lung herniation on 11/22/2017. This patient's history includes chronic, progressive shortness of breath and left chest wall pain since approximately Rhys after a bout of strenuous coughing. He also has a history of COPD, previous tobacco dependence, hypertension, hyperlipidemia , prostate disorder, and previous hernia repairs. He presented this admission with uncontrolled left shoulder and lateral chest wall pain. EKG was performed and demonstrated no ischemic ST changes. Troponin ordered and was negative. Chest x-ray demonstrated diminished lung volumes. CTA of the chest demonstrated no pulmonary embolism. Further detail of finding on CAT scan and chest x-ray as noted below Objective - Vital Signs Vital signs: Vital Signs Temp 98 F 12/03/17 06:50 Pulse 88 12/03/17 11:21 Resp 14 12/03/17 07:35 BP 169/94 12/03/17 06:50 Pulse Ox 94 L 12/03/17 06:50 Intake & Output 12/02/17 12/03/17 12/03/17 18:59 06:59 18:59 Intake Total 2069 250 Balance 2069 250 Intake: IV 250 125 Vancomycin 1,500 mg In 250 125 Sodium Chloride 0.9% 250 ml @ 125 mls/hr IVPB Q12HR LEANDRO Rx#:[id number] Intake, IV Titration 125 Amount Vancomycin 1,500 mg In 125 Sodium Chloride 0.9% 250 ml @ 125 mls/hr IVPB Q12HR LEANDRO Rx#:[id number] Oral 1820 Other: # Voids 2 3 - Exam - General well developed, well nourished, no distress, moderate pain - Eyes PERRL, normal ocular movement - ENT decreased hearing - Neck no masses, no bruits, trachea midline - Respiratory Lungs sounds clear but diminished bilaterally. Left-sided basal crackles are noted with bronchial breath sound Respirations even, nonlabored. Currently on room air oxygen saturation 92 to 96%., Thoracic wall incision healing well - Cardiovascular S1, S2 present. Regular rate and rhythm, sinus rhythm on telemetry. Palpable peripheral pulses bilaterally. No edema present. No Pain or tenderness noted. - Abdomen Abdomen: soft, non tender, bowel sounds PITA drain was present to left anterior chest, no drainage in the last 12 hours per , remove already by the cardiothoracic surgery - Neurologic normal coordination, normal sensation - Musculoskeletal normal gait, normal posture - Psychiatric oriented to time, oriented to person, oriented to place, speech is normal, memory intact - Labs CBC & Chem 7: 12/02/17 06:31 12/03/17 07:24 Labs: Abnormal Lab Results - Last 24 Hours (Table) 12/03/17 Range/Units 07:24 Sodium 136 L (137-145) mmol/L Glucose 127 H (74-99) mg/dL Assessment and Plan Assessment: Acute on chronic left-sided chest wall pain, postoperative with exacerbation related to left lower lobe pneumonia Bilateral alveolitis/pneumonitis Severe COPD emphysema Acute hypoxic respiratory failure related to above as well as ongoing inflammatory process and baseline severe COPD Leukocytosis (Diaphragmatic perforation status post repair with mesh Plan: Agree with IV gentle rehydration and pain control Bronchodilators and breathing treatment regular basis DVT prophylaxis and peptic ulcer disease prophylaxis Antibiotics with IV Rocephin and vancomycin and azithromycin IV steroids, continue Solu-Medrol 40 IV every 12 Further recommendations pending, if remains stable possible discharge on Medrol Dosepak, 500 mg daily Zithromax for 7-10 days on outpatient basis Time with Patient: Greater than 30
--- NOTE | 2017-12-03 12:44 | P.DS ---
Providers Date of admission: 11/30/17 15:28 Attending physician: Ted Echeverria Consults: 11/30/17 09:14 Consult Physician Urgent Consulting Provider: Khoi Avila Consult Reason/Comments: Postoperative pain Do you want consulting provider notified?: Yes 12/01/17 09:09 Consult Physician Routine Consulting Provider: Matt Moss Consult Reason/Comments: known patient Do you want consulting provider notified?: Already Contacted Primary care physician: [facility] Course: 71-year-old admitted secondary to pain management and the pulmonology valid the patient for possibility of pneumonia and pulmonary believes patient has left lower lobe pneumonia, most probably obtain is being pneumococcal pneumonia and patient is on antibiotics and the patient will be made in patient today. His pain is well-controlled patient will be started on etodolac as a substitute for ketorolac. 12/02/2017 Pain is well controlled with present regimen. Continue with the IV antibiotics possibly of discharge tomorrow 12/03/2017 Patient will be discharged today pain is well-controlled there is no evidence of staphylococcal pneumonia, patient will be discharged on Ceftin. PHYSICAL EXAMINATION: GENERAL: The patient is alert and oriented x3, not in any acute distress. Well developed, well nourished. HEENT: Pupils are round and equally reacting to light. EOMI. No scleral icterus. No conjunctival pallor. Normocephalic, atraumatic. No pharyngeal erythema. No thyromegaly. CARDIOVASCULAR: S1 and S2 present. No murmurs, rubs, or gallops. PULMONARY: Chest is clear to auscultation, no wheezing or crackles. ABDOMEN: Soft, nontender, nondistended, normoactive bowel sounds. No palpable organomegaly. MUSCULOSKELETAL: No joint swelling or deformity. EXTREMITIES: No cyanosis, clubbing, or pedal edema. NEUROLOGICAL: Gross neurological examination did not reveal any focal deficits. SKIN: No rashes. -Postoperative pain management: Patient was started on etodolac -COPD without any acute exacerbation and left lower lobe pneumonia: Patient was started on antibiotics. Patient will be set continued on systemic steroids -Hyperlipidemia -Hypertension Plan - Discharge Summary New Discharge Prescriptions: New Cefuroxime Axetil [Ceftin] 500 mg PO BID #14 tab Etodolac [Lodine] 400 mg PO BID #30 tab Continue predniSONE See Taper PO DAILY traMADol HCl [Ultram] 50 - 100 mg PO QID PRN PRN Reason: Pain HYDROcodone/APAP 10-325MG [Raymond 10-325] 1 tab PO QID PRN #30 tab PRN Reason: Pain Discontinued Indapamide [Lozol] 1.25 mg PO DAILY No Action Montelukast [Singulair] 10 mg PO HS Tamsulosin HCl [Flomax] 0.4 mg PO HS Meclizine [Antivert] 25 mg PO DAILY Lovastatin [Mevacor] 10 mg PO HS LORazepam [Ativan] 0.5 mg PO HS Ipratropium-Albuterol Nebulize [Duoneb 0.5 mg-3 mg/3 ml Soln] 3 ml INHALATION RT-QID Finasteride [Proscar] 5 mg PO HS Budesonide [Pulmicort] 0.5 mg INHALATION RT-BID Albuterol Inhaler [Ventolin Hfa Inhaler] 2 puff INHALATION RT-Q6H PRN PRN Reason: Shortness Of Breath Omeprazole 20 mg PO DAILY Benzonatate [Benzonatate Perle] 200 mg PO TID Lisinopril [Zestril] 10 mg PO DAILY #0 Discharge Medication List Albuterol Inhaler [Ventolin Hfa Inhaler] 2 puff INHALATION RT-Q6H PRN 11/18/17 [ History] Benzonatate [Benzonatate Perle] 200 mg PO TID 11/18/17 [History] Budesonide [Pulmicort] 0.5 mg INHALATION RT-BID 11/18/17 [History] Finasteride [Proscar] 5 mg PO HS 11/18/17 [History] Ipratropium-Albuterol Nebulize [Duoneb 0.5 mg-3 mg/3 ml Soln] 3 ml INHALATION RT -QID 11/18/17 [History] LORazepam [Ativan] 0.5 mg PO HS 11/18/17 [History] Lovastatin [Mevacor] 10 mg PO HS 11/18/17 [History] Meclizine [Antivert] 25 mg PO DAILY 11/18/17 [History] Montelukast [Singulair] 10 mg PO HS 11/18/17 [History] Omeprazole 20 mg PO DAILY 11/18/17 [History] Tamsulosin HCl [Flomax] 0.4 mg PO HS 11/18/17 [History] Lisinopril [Zestril] 10 mg PO DAILY #0 11/26/17 [Rx] predniSONE See Taper PO DAILY 11/30/17 [History] traMADol HCl [Ultram] 50 - 100 mg PO QID PRN 11/30/17 [History] Cefuroxime Axetil [Ceftin] 500 mg PO BID #14 tab 12/03/17 [Rx] Etodolac [Lodine] 400 mg PO BID #30 tab 12/03/17 [Rx] HYDROcodone/APAP 10-325MG [Raymond 10-325] 1 tab PO QID PRN #30 tab 12/03/17 [Rx] Follow up Appointment(s)/Referral(s): Quinton Gary DO [Primary Care Provider] - 1 Week Patient Instructions/Handouts: Pain Management After Surgery (DC) Activity/Diet/Wound Care/Special Instructions: Cardiac diet. Activity as tolerated. NO smoking, cessation information provided. Discharge Disposition: HOME SELF-CARE
== END 2017-12-03 14:15 | disposition home or self-care (01) | DRG 947 ==
LOC: EC 05:24 → 4MS4W 09:14 → OBSVTOIN 15:28 → 3SUR 12-01 11:24
PROVIDERS: ADMIT Internal Medicine; ATTEND Internal Medicine
DX: G89.18 Other acute postprocedural pain (principal); J96.01 Acute respiratory failure with hypoxia; J13 Pneumonia due to Streptococcus pneumoniae; J98.11 Atelectasis; E78.5 Hyperlipidemia, unspecified; F17.201 Nicotine dependence, unspecified, in remission; H81.09 Meniere's disease, unspecified ear; H91.90 Unspecified hearing loss, unspecified ear; I10 Essential (primary) hypertension; J43.9 Emphysema, unspecified; N42.9 Disorder of prostate, unspecified; D72.829 Elevated white blood cell count, unspecified; T38.0X5A Adverse effect of glucocorticoids and synthetic analogues, initial encounter; Z79.899 Other long term (current) drug therapy; G89.29 Other chronic pain; Y92.009 Unspecified place in unspecified non-institutional (private) residence as the place of occurrence of the external cause
CPT/HCPCS: 36415; 71045; 71046; 71275; 80048; 80053; 80202; 82150; 82550; 82553; 83690; 83735; 83880; 84484; 85025; 85027; 85610; 85730; 93005; 94640; 94760; 96361; 96374; 96375; 96376; 99285

== ENCOUNTER 2017-12-06 07:54 | Inpatient (IN) | payer MEDICARE ==
[2017-12-06] MEDS ORDERED: SODIUM CHLORIDE 0.9% 1,000 ML IV STA (08:16)
[2017-12-06] MEDS ORDERED: ACETAMINOPHEN TAB 500 MG TAB PO STA (08:16)
--- NOTE | 2017-12-06 08:19 | ED ---
General Adult HPI - General Chief complaint: Shortness of Breath Stated complaint: pleuitic pain Time Seen by Provider: 12/06/17 08:00 Source: patient, family, EMS, RN notes reviewed Mode of arrival: EMS Limitations: no limitations - History of Present Illness Initial comments: This is a 72-year-old male who presents emergency Department complaining of left -sided chest pain. Patient was recently seen in the hospital for a diaphragmatic hernia and he had a diaphragmatic hernia repair by Dr. Avila. Patient was discharged home on Sunday but since then the pain is slowly coming back and this morning it was significant enough that he thought he needed to come to the hospital. Patient also states he was short of breath. Patient denies any chest pain or palpitations. Patient denies fever. Patient denies any abdominal pain patient denies nausea vomiting diarrhea. Patient denies any headache patient denies numbness weakness. Patient denies any syncopal episode. Patient's main complaint is left-sided chest pain with some shortness of breath. According to EMS he was actually 100%. Patient also is currently feeling much better he does not need any pain medicines at this time because he received morphine and the emesis. - Related Data Home Medications Medication Instructions Recorded Confirmed Albuterol Inhaler [Ventolin Hfa 2 puff INHALATION RT-Q6H PRN 11/18/17 12/06/17 Inhaler] Benzonatate [Benzonatate Perle] 200 mg PO TID 11/18/17 12/06/17 Budesonide [Pulmicort] 0.5 mg INHALATION RT-BID 11/18/17 12/06/17 Finasteride [Proscar] 5 mg PO HS 11/18/17 12/06/17 Ipratropium-Albuterol Nebulize 3 ml INHALATION RT-QID 11/18/17 12/06/17 [Duoneb 0.5 mg-3 mg/3 ml Soln] LORazepam [Ativan] 0.5 mg PO HS 11/18/17 12/06/17 Lovastatin [Mevacor] 10 mg PO HS 11/18/17 12/06/17 Meclizine [Antivert] 25 mg PO DAILY 11/18/17 12/06/17 Montelukast [Singulair] 10 mg PO HS 11/18/17 12/06/17 Omeprazole 20 mg PO DAILY 11/18/17 12/06/17 Tamsulosin HCl [Flomax] 0.4 mg PO HS 11/18/17 12/06/17 predniSONE See Taper PO DAILY 11/30/17 12/06/17 traMADol HCl [Ultram] 50 - 100 mg PO QID PRN 11/30/17 12/06/17 Azithromycin [Zithromax] 500 mg PO DAILY 12/06/17 12/06/17 Previous Rx's Medication Instructions Recorded Lisinopril [Zestril] 10 mg PO DAILY #0 11/26/17 Cefuroxime Axetil [Ceftin] 500 mg PO BID #14 tab 12/03/17 Etodolac [Lodine] 400 mg PO BID #30 tab 12/03/17 HYDROcodone/APAP 10-325MG [Dovray 1 tab PO QID PRN #30 tab 12/03/17 10-325] Allergies Allergy/AdvReac Type Severity Reaction Status Date / Time No Known Allergies Allergy Verified 12/06/17 08:34 Review of Systems ROS Statement: Those systems with pertinent positive or pertinent negative responses have been documented in the HPI. ROS Other: All systems not noted in ROS Statement are negative. Past Medical History Past Medical History: COPD, Hearing Disorder / Deafness, Hyperlipidemia, Hypertension, Prostate Disorder Additional Past Medical History / Comment(s): emphysema, menieres disease History of Any Multi-Drug Resistant Organisms: None Reported Past Surgical History: Hernia Repair, Tonsillectomy Additional Past Surgical History / Comment(s): hernia X2, cyst on hand, right foot pin in great toe. Left thoracotomy closure of diaphragmatic hernia with patch, repair of costochondral dislocation with subsequent lung herniation October 2017 Past Anesthesia/Blood Transfusion Reactions: No Reported Reaction Past Psychological History: No Psychological Hx Reported Smoking Status: Former smoker Past Alcohol Use History: None Reported Past Drug Use History: None Reported - Past Family History Mother Family Medical History: Dementia Additional Family Medical History / Comment(s): breast cancer General Exam - General Exam Comments Initial Comments: GENERAL: Patient is well-developed and well-nourished. Patient is nontoxic and well- hydrated and is in mild distress. ENT: Neck is soft and supple. No significant lymphadenopathy is noted. Oropharynx is clear. Moist mucous membranes. Neck has full range of motion without eliciting any pain. EYES: The sclera were anicteric and conjunctiva were pink and moist. Extraocular movements were intact and pupils were equal round and reactive to light. Eyelids were unremarkable. PULMONARY: Unlabored respirations. Good breath sounds bilaterally. No audible rales rhonchi or wheezing was noted. CARDIOVASCULAR: There is a regular rate and rhythm without any murmurs gallops or rubs. ABDOMEN: Soft and nontender with normal bowel sounds. No palpable organomegaly was noted. There is no palpable pulsatile mass. SKIN: Skin is clear with no lesions or rashes and otherwise unremarkable. NEUROLOGIC: Patient is alert and oriented x3. Cranial nerves II through XII are grossly intact. Motor and sensory are also intact. Normal speech, volume and content. Symmetrical smile. MUSCULOSKELETAL: Normal extremities with adequate strength and full range of motion. No lower extremity swelling or edema. No calf tenderness. LYMPHATICS: No significant lymphadenopathy is noted PSYCHIATRIC: Normal psychiatric evaluation. Limitations: no limitations Course Vital Signs 12/06/17 12/06/17 12/06/17 07:58 09:08 09:40 Temperature 100.3 F H 97.3 F L Pulse Rate 110 H 75 80 Respiratory 26 H 24 Rate Blood Pressure 89/53 101/55 O2 Sat by Pulse 93 L 96 95 Oximetry 12/06/17 12/06/17 10:00 11:00 Temperature Pulse Rate 78 87 Respiratory 20 20 Rate Blood Pressure 114/60 104/64 O2 Sat by Pulse 96 Oximetry Medical Decision Making - Medical Decision Making EKG shows sinus rhythm at 97 bpm IA interval is 128 QRS is 94 QT interval 344 QTC is 436. Patient also is having PVCs. Patient shows no ST segment elevation or depression I spoke with Sergei Jonas any is aware that the patient is here in the emergency department Computed tomography scan was done and shows fluid extending from the left pleural effusion between the posterior lateral left ribs 89 into the subcu continues tissue this could be an extension of the pleural effusion or infection. Dr. Moss saw the patient emergency department and Sergei Jonas saw the patient in the emergency department. It was agreed upon that the patient would be admitted I started the patient on Zosyn and vancomycin. I consult to Dr. Avila - Lab Data Result diagrams: 12/06/17 08:10 12/06/17 08:10 Lab Results 12/06/17 12/06/17 12/06/17 Range/Units 08:10 08:10 08:10 WBC 13.8 H (3.8-10.6) k/uL RBC 4.09 L (4.30-5.90) m/uL Hgb 12.1 L (13.0-17.5) gm/dL Hct 37.8 L (39.0-53.0) % MCV 92.5 (80.0-100.0) fL MCH 29.7 (25.0-35.0) pg MCHC 32.1 (31.0-37.0) g/dL RDW 12.7 (11.5-15.5) % Plt Count 402 (150-450) k/uL Neutrophils % 90 % Lymphocytes % 3 % Monocytes % 4 % Eosinophils % 2 % Basophils % 0 % Neutrophils # 12.3 H (1.3-7.7) k/uL Lymphocytes # 0.4 L (1.0-4.8) k/uL Monocytes # 0.6 (0-1.0) k/uL Eosinophils # 0.3 (0-0.7) k/uL Basophils # 0.0 (0-0.2) k/uL PT (9.0-12.0) sec INR (<1.2) APTT (22.0-30.0) sec Sodium 133 L (137-145) mmol/L Potassium 3.7 (3.5-5.1) mmol/L Chloride 101 (98-107) mmol/L Carbon Dioxide 25 (22-30) mmol/L Anion Gap 7 mmol/L BUN 18 (9-20) mg/dL Creatinine 0.90 (0.66-1.25) mg/dL Est GFR (MDRD) Af Amer >60 (>60 ml/min/1.73 sqM) Est GFR (MDRD) Non-Af >60 (>60 ml/min/1.73 sqM) Glucose 146 H (74-99) mg/dL Plasma Lactic Acid Geo (0.7-2.0) mmol/L Calcium 7.9 L (8.4-10.2) mg/dL Magnesium 1.8 (1.6-2.3) mg/dL Total Bilirubin 0.6 (0.2-1.3) mg/dL AST 16 L (17-59) U/L ALT 36 (21-72) U/L Alkaline Phosphatase 61 (38-126) U/L Total Creatine Kinase 32 L (55-170) U/L CK-MB (CK-2) 1.2 (0.0-2.4) ng/mL CK-MB (CK-2) Rel Index 3.8 Troponin I 0.013 (0.000-0.034) ng/mL Total Protein 4.6 L (6.3-8.2) g/dL Albumin 2.5 L (3.5-5.0) g/dL 12/06/17 12/06/17 Range/Units 08:10 08:10 WBC (3.8-10.6) k/uL RBC (4.30-5.90) m/uL Hgb (13.0-17.5) gm/dL Hct (39.0-53.0) % MCV (80.0-100.0) fL MCH (25.0-35.0) pg MCHC (31.0-37.0) g/dL RDW (11.5-15.5) % Plt Count (150-450) k/uL Neutrophils % % Lymphocytes % % Monocytes % % Eosinophils % % Basophils % % Neutrophils # (1.3-7.7) k/uL Lymphocytes # (1.0-4.8) k/uL Monocytes # (0-1.0) k/uL Eosinophils # (0-0.7) k/uL Basophils # (0-0.2) k/uL PT 11.2 (9.0-12.0) sec INR 1.2 H (<1.2) APTT 25.4 (22.0-30.0) sec Sodium (137-145) mmol/L Potassium (3.5-5.1) mmol/L Chloride (98-107) mmol/L Carbon Dioxide (22-30) mmol/L Anion Gap mmol/L BUN (9-20) mg/dL Creatinine (0.66-1.25) mg/dL Est GFR (MDRD) Af Amer (>60 ml/min/1.73 sqM) Est GFR (MDRD) Non-Af (>60 ml/min/1.73 sqM) Glucose (74-99) mg/dL Plasma Lactic Acid Geo 1.6 (0.7-2.0) mmol/L Calcium (8.4-10.2) mg/dL Magnesium (1.6-2.3) mg/dL Total Bilirubin (0.2-1.3) mg/dL AST (17-59) U/L ALT (21-72) U/L Alkaline Phosphatase (38-126) U/L Total Creatine Kinase (55-170) U/L CK-MB (CK-2) (0.0-2.4) ng/mL CK-MB (CK-2) Rel Index Troponin I (0.000-0.034) ng/mL Total Protein (6.3-8.2) g/dL Albumin (3.5-5.0) g/dL Disposition Clinical Impression: Postoperative pain, Pleural effusion Disposition: ADMITTED IP TO THIS HOSP Referrals: Quinton Gary DO [Primary Care Provider] - 1-2 days Time of Disposition: 11:50
[2017-12-06] MEDS ORDERED: ACETAMINOPHEN TAB 325 MG TAB PO STA (08:27)
[2017-12-06 08:34] LABS: Basophils % (A) 0 %; Eosinophils # (A) 0.3 k/uL (0-0.7); Eosinophils % (A) 2 %; HCT 37.8 % (39.0-53.0); HGB 12.1 gm/dL (13.0-17.5); Lymphocytes # (A) 0.4 k/uL (1.0-4.8); Lymphocytes % (A) 3 %; MCH 29.7 pg (25.0-35.0); MCHC 32.1 g/dL (31.0-37.0); MCV 92.5 fL (80.0-100.0); Mean Platelet Volume 6.6; Monocytes # (A) 0.6 k/uL (0-1.0); Monocytes % (A) 4 %; Neutrophils # (A) 12.3 k/uL (1.3-7.7); Neutrophils % (A) 90 %; Platelet Count 402 k/uL (150-450); RBC 4.09 m/uL (4.30-5.90); RDW 12.7 % (11.5-15.5); WBC 13.8 k/uL (3.8-10.6)
[2017-12-06 08:41] LABS: INR 1.2 (<1.2); Partial Thromboplastin Time 25.4 sec (22.0-30.0); Prothrombin Time 11.2 sec (9.0-12.0)
[2017-12-06 08:51] LABS: ALT 36 U/L (21-72); AST 16 U/L (17-59); Albumin 2.5 g/dL (3.5-5.0); Alkaline Phosphatase 61 U/L (38-126); Anion Gap 7 mmol/L; Blood Urea Nitrogen 18 mg/dL (9-20); Calcium 7.9 mg/dL (8.4-10.2); Carbon Dioxide 25 mmol/L (22-30); Chloride 101 mmol/L (98-107); Glucose 146 mg/dL (74-99); Magnesium 1.8 mg/dL (1.6-2.3); Potassium 3.7 mmol/L (3.5-5.1); Sodium 133 mmol/L (137-145); Total Bilirubin 0.6 mg/dL (0.2-1.3); Total Protein 4.6 g/dL (6.3-8.2)
--- NOTE | 2017-12-06 08:56 | XR ---
EXAMINATION TYPE: XR chest 2V DATE OF EXAM: 12/06/2017 COMPARISON: Chest x-ray from 5 days ago. CTA chest from 6 days ago. HISTORY: Recent lung surgery with difficulty in breathing. TECHNIQUE: Frontal and lateral views of the chest are obtained. FINDINGS: The osseous structures remain demineralized. There is stable mild cardiomegaly. There is b ackground of chronic emphysematous change redemonstrated. There is persistent small left pleural effu keara with nonlayering component posteriorly redemonstrated. There is patchy left greater than right b ibasilar atelectasis and/or infiltrate again seen. No pneumothorax is present bilaterally. IMPRESSION: Mild cardiomegaly and chronic emphysematous change with left greater than right bibasila r atelectasis and/or infiltrate and small left pleural fluid collection all redemonstrated.
[2017-12-06 09:07] LABS: Creatine Kinase MB 1.2 ng/mL (0.0-2.4); Troponin I 0.013 ng/mL (0.000-0.034)
[2017-12-06] MEDS ORDERED: RX INFO: IV CONTRAST WAS GIVEN 1 EACH MISC MISCELLANE PRN (10:10)
[2017-12-06] MEDS ORDERED: PIPERACILLIN-TAZOBACTAM 3.375 GM in DEXTROSE/WATER 1 50ML.BAG IVPB STA (10:43)
--- NOTE | 2017-12-06 11:27 | CT ---
EXAMINATION TYPE: CT chest w con DATE OF EXAM: 12/06/2017 COMPARISON: 11/30/2016 HISTORY: Pleuritic pain CT DLP: 537 mGycm, Automated exposure control for dose reduction was used. CONTRAST: Performed injected with 100 ml mL of Omnipaque 300. TECHNIQUE: Axial images were obtained at 5 mm thick sections. Reconstructed images are reviewed on [employer] computer in the coronal plane. FINDINGS: Portion of the thyroid visualized is normal. No suspicious lung nodules or focal infiltrates are present. Emphysematous changes are evident. There is a small left pleural effusion. This extends beyond the rib margins into the subcutaneous tis zuhair on the posterior lateral left lung base. This extends between ribs 8 and 9 on the left lateral ma rgin. Minimal free air is in the posterior left flank the patient's surgery sagittal reconstructed im ages. No enlarged mediastinal or hilar adenopathy is evident. The ascending aorta diameter at the level o f the main pulmonary artery is 3.0 cm. The main pulmonary artery diameter at the bifurcation is 2.[address] sections are obtained through the upper abdomen. Abdomen is essentially unremarkable. IMPRESSIONS: 1. Fluid extending from a left pleural effusion between posterior-lateral left ribs 8 and 9 into the subcutaneous tissue. Pleural effusion and infection could be considered.
[2017-12-06] MEDS ORDERED: VANCOMYCIN IV PER PHARMACY 1 EACH MISC MISCELLANE PRN (11:48)
[2017-12-06] MEDS ORDERED: SODIUM CHLORIDE 0.9% 1,000 ML IV ONE (11:51)
[2017-12-06] MEDS ORDERED: VANCOMYCIN 2,000 MG in SODIUM CHLORIDE 0.9% 500 ML IVPB STA (12:09)
[2017-12-06] MEDS ORDERED: IPRATROPIUM-ALBUTEROL 3 ML NEB INHALATION STA (13:08)
[2017-12-06] MEDS: HYDROmorphone 4 MG/ML 1 ML SYRINGE IVP PRN ×2 (14:29→20:26)
[2017-12-06] MEDS ORDERED: BENZONATATE 100 MG CAP PO PRN (14:37)
--- NOTE | 2017-12-06 16:39 | P.GSCN ---
<Manjit Jonas - Last Filed: 12/06/17 16:36> History of Present Illness Consult date: 12/06/17 Reason for Consult: Postoperative site pain, left chest. Requesting physician: Tony Sheridan History of present illness: This is a 72-year-old gentleman who is followed by Dr. Quinton Gary on an outpatient basis. His past medical history significant for chronic obstructive pulmonary disease, previous tobacco dependence, hypertension hyperlipidemia, prostate disorder, Mnire's disease, and hearing disorder. The patient is well -known to our service and presented to the emergency department today via EMS with uncontrolled postoperative pain to his left chest. On 11/22/2017 the patient underwent a successful left thoracotomy closure of a diaphragmatic hernia with patch and repair of the costochondral dislocation and subsequent lung herniation. He was discharged home 11/26/2017 and presented back to the [facility] emergency department on 11/30/2017 with complaints of postoperative left chest wall pain and progressive progressive shortness of breath. He reports that his pain is a stabbing pain to his left lower abdomen all the way up to his left shoulder. He also reports that he has some shortness of breath and a persistent dry cough. He states that he has not been unable to use his incentive spirometry consistently at home due to the pain with deep breathing. He denies any complaints of nausea, vomiting, diarrhea, fever, or chills. Lab work showed a WBC count of 13.8, Hgb count of 12.1, BUN 18, creatinine 0.90. On presentation to the emergency department he had a low- grade fever of 100.3F, heart rate 75, blood pressure 89/53. A chest x-ray was completed which showed mild cardiomegaly, chronic emphysematous change with left greater than right bibasilar atelectasis and/or infiltrate with small left pleural fluid collection. A follow-up CT scan of his chest was completed which demonstrated fluid extending from a left pleural effusion between posterior lateral left ribs 8 and 9 into the subcutaneous tissue. Due to the patient's presenting symptoms, recent history of diaphragmatic hernia repair a consult was placed for Dr. Khoi Avila from cardiothoracic surgery. Review of Systems A 12 point review of systems was completed and was negative except as mentioned in HPI. Past Medical History Past Medical History: COPD, Hearing Disorder / Deafness, Hyperlipidemia, Hypertension, Prostate Disorder Additional Past Medical History / Comment(s): emphysema, history of menieres disease History of Any Multi-Drug Resistant Organisms: None Reported Past Surgical History: Hernia Repair, Tonsillectomy Additional Past Surgical History / Comment(s): hernia X2, cyst on hand, right foot pin in great toe. Left thoracotomy closure of diaphragmatic hernia with patch, repair of costochondral dislocation with subsequent lung herniation November 22 2017 Past Anesthesia/Blood Transfusion Reactions: No Reported Reaction Past Psychological History: No Psychological Hx Reported Smoking Status: Former smoker Past Alcohol Use History: None Reported Past Drug Use History: None Reported - Past Family History Mother Family Medical History: Dementia Additional Family Medical History / Comment(s): breast cancer Father Family Medical History: No Reported History Medications and Allergies Home Medications Medication Instructions Recorded Confirmed Type Albuterol Inhaler [Ventolin Hfa 2 puff INHALATION RT-Q6H PRN 11/18/17 12/06/17 History Inhaler] Benzonatate [Benzonatate Perle] 200 mg PO TID 11/18/17 12/06/17 History Budesonide [Pulmicort] 0.5 mg INHALATION RT-BID 11/18/17 12/06/17 History Finasteride [Proscar] 5 mg PO HS 11/18/17 12/06/17 History Ipratropium-Albuterol Nebulize 3 ml INHALATION RT-QID 11/18/17 12/06/17 History [Duoneb 0.5 mg-3 mg/3 ml Soln] LORazepam [Ativan] 0.5 mg PO HS 11/18/17 12/06/17 History Lovastatin [Mevacor] 10 mg PO HS 11/18/17 12/06/17 History Meclizine [Antivert] 25 mg PO DAILY 11/18/17 12/06/17 History Montelukast [Singulair] 10 mg PO HS 11/18/17 12/06/17 History Omeprazole 20 mg PO DAILY 11/18/17 12/06/17 History Tamsulosin HCl [Flomax] 0.4 mg PO HS 11/18/17 12/06/17 History Lisinopril [Zestril] 10 mg PO DAILY #0 11/26/17 12/06/17 Rx predniSONE See Taper PO DAILY 11/30/17 12/06/17 History traMADol HCl [Ultram] 50 - 100 mg PO QID PRN 11/30/17 12/06/17 History Cefuroxime Axetil [Ceftin] 500 mg PO BID #14 tab 12/03/17 12/06/17 Rx Etodolac [Lodine] 400 mg PO BID #30 tab 12/03/17 12/06/17 Rx HYDROcodone/APAP 10-325MG [[place] 1 tab PO QID PRN #30 tab 12/03/17 12/06/17 Rx 10-325] Azithromycin [Zithromax] 500 mg PO DAILY 12/06/17 12/06/17 History Allergies Allergy/AdvReac Type Severity Reaction Status Date / Time No Known Allergies Allergy Verified 12/06/17 08:34 Surgical - Exam Vital Signs Temp Pulse Resp Pulse Ox 100.3 F H 110 H 26 H 93 L 12/06/17 07:58 12/06/17 07:58 12/06/17 07:58 12/06/17 07:58 - General well developed, well nourished, no distress, moderate pain (Currently rates his pain 8 or 9 out of 10 on the pain scale 2 his left chest incision site.) - Eyes PERRL, normal ocular movement - ENT normal pinna, normal nares, normal mucosa, no congestion, decreased hearing - Neck No lymphadenopathy, neck supple. no masses, no bruits, trachea midline, no venous distension - Respiratory Lung sounds essentially clear to his bilateral upper lobes, few scattered crackles to his bilateral bases left greater than right. Respirations are symmetrical and nonlabored. Oxygen saturation is 97% on 2 L nasal cannula. - Cardiovascular Regular rhythm and rate. S1 and S2 present, negative for S3, gallop or murmur. Bedside telemetry showing normal sinus rhythm heart rate 83. +1 to +2 pedal edema bilaterally. Peripheral pulses palpable. - Abdomen Abdomen is soft, nontender and nondistended. Active bowel sounds all 4 abdominal quadrants. Passing flatus. No organomegaly, no guarding or rigidity. - Genitourinary Adequate urine output. Voiding clear gianni urine. - Integumentary Left thoracotomy incision site clean dry and well approximated. Slight swelling surrounding the thoracotomy incision. No drainage or redness. Skin warm and dry to touch. No clubbing or cyanosis. no rash, no growths, no abnormal pigmentation - Neurologic normal coordination, normal sensation - Musculoskeletal normal gait, normal posture - Psychiatric oriented to time, oriented to person, oriented to place, speech is normal, memory intact Results - Labs 12/06/17 08:10 12/06/17 08:10 Abnormal Lab Results - Last 24 Hours (Table) 12/06/17 12/06/17 12/06/17 Range/Units 08:10 08:10 08:10 WBC 13.8 H (3.8-10.6) k/uL RBC 4.09 L (4.30-5.90) m/uL Hgb 12.1 L (13.0-17.5) gm/dL Hct 37.8 L (39.0-53.0) % Neutrophils # 12.3 H (1.3-7.7) k/uL Lymphocytes # 0.4 L (1.0-4.8) k/uL INR (<1.2) Sodium 133 L (137-145) mmol/L Glucose 146 H (74-99) mg/dL Calcium 7.9 L (8.4-10.2) mg/dL AST 16 L (17-59) U/L Total Creatine Kinase 32 L (55-170) U/L Total Protein 4.6 L (6.3-8.2) g/dL Albumin 2.5 L (3.5-5.0) g/dL 12/06/17 Range/Units 08:10 WBC (3.8-10.6) k/uL RBC (4.30-5.90) m/uL Hgb (13.0-17.5) gm/dL Hct (39.0-53.0) % Neutrophils # (1.3-7.7) k/uL Lymphocytes # (1.0-4.8) k/uL INR 1.2 H (<1.2) Sodium (137-145) mmol/L Glucose (74-99) mg/dL Calcium (8.4-10.2) mg/dL AST (17-59) U/L Total Creatine Kinase (55-170) U/L Total Protein (6.3-8.2) g/dL Albumin (3.5-5.0) g/dL Diabetes panel 12/06/17 Range/Units 08:10 Sodium 133 L (137-145) mmol/L Potassium 3.7 (3.5-5.1) mmol/L Chloride 101 (98-107) mmol/L Carbon Dioxide 25 (22-30) mmol/L BUN 18 (9-20) mg/dL Creatinine 0.90 (0.66-1.25) mg/dL Glucose 146 H (74-99) mg/dL Calcium 7.9 L (8.4-10.2) mg/dL AST 16 L (17-59) U/L ALT 36 (21-72) U/L Alkaline Phosphatase 61 (38-126) U/L Total Protein 4.6 L (6.3-8.2) g/dL Albumin 2.5 L (3.5-5.0) g/dL Calcium panel 12/06/17 Range/Units 08:10 Calcium 7.9 L (8.4-10.2) mg/dL Albumin 2.5 L (3.5-5.0) g/dL Pituitary panel 12/06/17 Range/Units 08:10 Sodium 133 L (137-145) mmol/L Potassium 3.7 (3.5-5.1) mmol/L Chloride 101 (98-107) mmol/L Carbon Dioxide 25 (22-30) mmol/L BUN 18 (9-20) mg/dL Creatinine 0.90 (0.66-1.25) mg/dL Glucose 146 H (74-99) mg/dL Calcium 7.9 L (8.4-10.2) mg/dL Adrenal panel 12/06/17 Range/Units 08:10 Sodium 133 L (137-145) mmol/L Potassium 3.7 (3.5-5.1) mmol/L Chloride 101 (98-107) mmol/L Carbon Dioxide 25 (22-30) mmol/L BUN 18 (9-20) mg/dL Creatinine 0.90 (0.66-1.25) mg/dL Glucose 146 H (74-99) mg/dL Calcium 7.9 L (8.4-10.2) mg/dL Total Bilirubin 0.6 (0.2-1.3) mg/dL AST 16 L (17-59) U/L ALT 36 (21-72) U/L Alkaline Phosphatase 61 (38-126) U/L Total Protein 4.6 L (6.3-8.2) g/dL Albumin 2.5 L (3.5-5.0) g/dL - Imaging Chest x-ray: report reviewed, image reviewed CT scan - chest: report reviewed, image reviewed Assessment and Plan (1) Hard of hearing Current Visit: Yes Status: Acute Code(s): H91.90 - UNSPECIFIED HEARING LOSS , UNSPECIFIED EAR SNOMED Code(s): 05552299 (2) Postoperative pain Current Visit: Yes Status: Acute Code(s): G89.18 - OTHER ACUTE POSTPROCEDURAL PAIN SNOMED Code(s): 144889867 (3) Mnire's disease Current Visit: No Status: Acute Code(s): H81.09 - MENIERE'S DISEASE, UNSPECIFIED EAR SNOMED Code(s): 73902200 (4) COPD (chronic obstructive pulmonary disease) Current Visit: No Status: Chronic Code(s): J44.9 - CHRONIC OBSTRUCTIVE PULMONARY DISEASE, UNSPECIFIED SNOMED Code(s): 75800845 (5) History of hernia repair Current Visit: No Status: Chronic Code(s): Z98.890 - OTHER SPECIFIED POSTPROCEDURAL STATES; Z87.19 - PERSONAL HISTORY OF OTHER DISEASES OF THE DIGESTIVE SYSTEM SNOMED Code(s): 10074233438431 (6) Hyperlipidemia Current Visit: No Status: Chronic Code(s): E78.5 - HYPERLIPIDEMIA, UNSPECIFIED SNOMED Code(s): 92772721 (7) Hypertension Current Visit: No Status: Chronic Code(s): I10 - ESSENTIAL (PRIMARY) HYPERTENSION SNOMED Code(s): 65401009 (8) Prostate disorder Current Visit: No Status: Chronic Code(s): N42.9 - DISORDER OF PROSTATE, UNSPECIFIED SNOMED Code(s): 55445609 Plan: The patient was seen and examined. His chart diagnostics were reviewed. Patient was seen and examined by Dr. Avila. Pain control per when necessary orders. Computed tomography scan of his chest shows that the surgical diaphragmatic hernia repair remains intact. There is a small subcutaneous fluid collection to his left chest which may need to be drained during this hospitalization, this was discussed with the patient and his family. Encourage incentive spirometry every hour while awake. DVT and GI prophylaxis. Pulmonary management and recommendations per Dr. Moss. Thank you Dr. Sheridan for this consult and we look forward to working with you in the care of this patient. Time with Patient: Greater than 30 <Khoi Avila R - Last Filed: 12/09/17 10:29> Surgical - Exam Vital Signs Temp Pulse Resp Pulse Ox 100.3 F H 110 H 26 H 93 L 12/06/17 07:58 12/06/17 07:58 12/06/17 07:58 12/06/17 07:58 Results - Labs 12/09/17 05:36 12/09/17 05:36 Abnormal Lab Results - Last 24 Hours (Table) 12/08/17 12/08/17 12/09/17 Range/Units 17:20 21:12 05:36 WBC (3.8-10.6) k/uL RBC (4.30-5.90) m/uL Hgb (13.0-17.5) gm/dL MCHC (31.0-37.0) g/dL Neutrophils # (1.3-7.7) k/uL Lymphocytes # (1.0-4.8) k/uL Glucose 170 H (74-99) mg/dL POC Glucose (mg/dL) 138 H 179 H (75-99) mg/dL Total Protein 5.8 L (6.3-8.2) g/dL Albumin 3.2 L (3.5-5.0) g/dL 12/09/17 12/09/17 Range/Units 05:36 06:15 WBC 14.6 H (3.8-10.6) k/uL RBC 4.21 L (4.30-5.90) m/uL Hgb 12.1 L (13.0-17.5) gm/dL MCHC 30.0 L (31.0-37.0) g/dL Neutrophils # 13.6 H (1.3-7.7) k/uL Lymphocytes # 0.4 L (1.0-4.8) k/uL Glucose (74-99) mg/dL POC Glucose (mg/dL) 161 H (75-99) mg/dL Total Protein (6.3-8.2) g/dL Albumin (3.5-5.0) g/dL Microbiology - Last 24 Hours (Table) 12/06/17 08:10 Blood Culture - Preliminary Blood No Growth after 48 hours Diabetes panel 12/09/17 Range/Units 05:36 Sodium 139 (137-145) mmol/L Potassium 4.1 (3.5-5.1) mmol/L Chloride 103 (98-107) mmol/L Carbon Dioxide 24 (22-30) mmol/L BUN 14 (9-20) mg/dL Creatinine 0.78 (0.66-1.25) mg/dL Glucose 170 H (74-99) mg/dL Calcium 9.0 (8.4-10.2) mg/dL AST 35 (17-59) U/L ALT 45 (21-72) U/L Alkaline Phosphatase 75 (38-126) U/L Total Protein 5.8 L (6.3-8.2) g/dL Albumin 3.2 L (3.5-5.0) g/dL Calcium panel 12/09/17 Range/Units 05:36 Calcium 9.0 (8.4-10.2) mg/dL Albumin 3.2 L (3.5-5.0) g/dL Pituitary panel 12/09/17 Range/Units 05:36 Sodium 139 (137-145) mmol/L Potassium 4.1 (3.5-5.1) mmol/L Chloride 103 (98-107) mmol/L Carbon Dioxide 24 (22-30) mmol/L BUN 14 (9-20) mg/dL Creatinine 0.78 (0.66-1.25) mg/dL Glucose 170 H (74-99) mg/dL Calcium 9.0 (8.4-10.2) mg/dL Adrenal panel 12/09/17 Range/Units 05:36 Sodium 139 (137-145) mmol/L Potassium 4.1 (3.5-5.1) mmol/L Chloride 103 (98-107) mmol/L Carbon Dioxide 24 (22-30) mmol/L BUN 14 (9-20) mg/dL Creatinine 0.78 (0.66-1.25) mg/dL Glucose 170 H (74-99) mg/dL Calcium 9.0 (8.4-10.2) mg/dL Total Bilirubin 0.4 (0.2-1.3) mg/dL AST 35 (17-59) U/L ALT 45 (21-72) U/L Alkaline Phosphatase 75 (38-126) U/L Total Protein 5.8 L (6.3-8.2) g/dL Albumin 3.2 L (3.5-5.0) g/dL Assessment and Plan Assessment: 72-year-old male known to our service. He is status post repair of lung hernia and diaphragmatic tear related to the right lung herniation. He presents with pain. Computed tomography scan demonstrates no evidence of recurrence of his hernias. Patient was examined and discussed with the COPY HOLDER. I agree with his evaluation and assessment as documented. No further intervention is planned at this time.
[2017-12-06] MEDS: IPRATROPIUM-ALBUTEROL 3 ML NEB INHALATION PRN ×2 (16:55→21:06)
[2017-12-06] MEDS: KETOROLAC 30 MG/ML 1 ML VIAL IVP SCH ×2 (17:20→23:52)
--- NOTE | 2017-12-06 18:14 | P.HPPUL ---
History of Present Illness H&P Date: 12/06/17 Chief Complaint: Shortness of breath and severe degree of chest pain on the left side Patient seen and evaluated examined in the ER as well as on 6 floor, This is a 72-year-old gentleman who is followed by Dr. Quinton Gary on an outpatient basis. His past medical history significant for chronic obstructive pulmonary disease, previous tobacco dependence, hypertension hyperlipidemia, prostate disorder, Mnire's disease, and hearing disorder. presented to the emergency department today via EMS with uncontrolled postoperative pain to his left chest. Patient had the recent acute COPD exacerbation in September 2017 was subsequently discharged and then readmitted in October with severe excruciating left-sided chest wall pain found to have the left diaphragmatic hernia On 2017 the patient underwent a successful left thoracotomy closure of a diaphragmatic hernia with patch and repair of the costochondral dislocation and subsequent lung herniation. He was discharged home 11/26/2017 and presented back to the [facility] emergency department on 11/30/2017 with complaints of postoperative left chest wall pain and progressive progressive shortness of breath. He reports that his pain is a stabbing pain to his left lower abdomen all the way up to his left shoulder. Patient at that time was treated with the IV antibiotics and CAT scan revealed strandy infiltrate at both bases along with alveolitis-like Petrin bilaterally Currently He also reports that he has some shortness of breath and a persistent dry cough. He states that he has not been unable to use his incentive spirometry consistently at home due to the pain with deep breathing. He denies any complaints of nausea, vomiting, diarrhea, fever, or chills. Lab work showed a WBC count of 13.8, Hgb count of 12.1, BUN 18, creatinine 0.90. On presentation to the emergency department he had a low-grade fever of 100.3F, heart rate 75, blood pressure 89/53. A chest x-ray was completed which showed mild cardiomegaly, chronic emphysematous change with left greater than right bibasilar atelectasis and/or infiltrate with small left pleural fluid collection. A follow-up CT scan of his chest was completed which demonstrated fluid extending from a left pleural effusion between posterior lateral left ribs 8 and 9 into the subcutaneous tissue. Review of Systems All systems: negative Past Medical History Past Medical History: COPD, Hearing Disorder / Deafness, Hyperlipidemia, Hypertension, Prostate Disorder Additional Past Medical History / Comment(s): emphysema, history of menieres disease History of Any Multi-Drug Resistant Organisms: None Reported Past Surgical History: Hernia Repair, Tonsillectomy Additional Past Surgical History / Comment(s): hernia X2, cyst on hand, right foot pin in great toe. Left thoracotomy closure of diaphragmatic hernia with patch, repair of costochondral dislocation with subsequent lung herniation November 22 2017 Past Anesthesia/Blood Transfusion Reactions: No Reported Reaction Past Psychological History: No Psychological Hx Reported Smoking Status: Former smoker Past Alcohol Use History: None Reported Past Drug Use History: None Reported - Past Family History Mother Family Medical History: Dementia Additional Family Medical History / Comment(s): breast cancer Father Family Medical History: No Reported History Medications and Allergies Home Medications Medication Instructions Recorded Confirmed Type Albuterol Inhaler [Ventolin Hfa 2 puff INHALATION RT-Q6H PRN 11/18/17 12/06/17 History Inhaler] Benzonatate [Benzonatate Perle] 200 mg PO TID 11/18/17 12/06/17 History Budesonide [Pulmicort] 0.5 mg INHALATION RT-BID 11/18/17 12/06/17 History Finasteride [Proscar] 5 mg PO HS 11/18/17 12/06/17 History Ipratropium-Albuterol Nebulize 3 ml INHALATION RT-QID 11/18/17 12/06/17 History [Duoneb 0.5 mg-3 mg/3 ml Soln] LORazepam [Ativan] 0.5 mg PO HS 11/18/17 12/06/17 History Lovastatin [Mevacor] 10 mg PO HS 11/18/17 12/06/17 History Meclizine [Antivert] 25 mg PO DAILY 11/18/17 12/06/17 History Montelukast [Singulair] 10 mg PO HS 11/18/17 12/06/17 History Omeprazole 20 mg PO DAILY 11/18/17 12/06/17 History Tamsulosin HCl [Flomax] 0.4 mg PO HS 11/18/17 12/06/17 History Lisinopril [Zestril] 10 mg PO DAILY #0 11/26/17 12/06/17 Rx predniSONE See Taper PO DAILY 11/30/17 12/06/17 History traMADol HCl [Ultram] 50 - 100 mg PO QID PRN 11/30/17 12/06/17 History Cefuroxime Axetil [Ceftin] 500 mg PO BID #14 tab 12/03/17 12/06/17 Rx Etodolac [Lodine] 400 mg PO BID #30 tab 12/03/17 12/06/17 Rx HYDROcodone/APAP 10-325MG [[place] 1 tab PO QID PRN #30 tab 12/03/17 12/06/17 Rx 10-325] Azithromycin [Zithromax] 500 mg PO DAILY 12/06/17 12/06/17 History Allergies Allergy/AdvReac Type Severity Reaction Status Date / Time No Known Allergies Allergy Verified 12/06/17 08:34 Physical Examination Vital signs: Vital Signs Temp Pulse Resp Pulse Ox 100.3 F H 110 H 26 H 93 L 12/06/17 07:58 12/06/17 07:58 12/06/17 07:58 12/06/17 07:58 Vital Signs Comment(s): - General well developed, well nourished, no distress, moderate pain (Currently rates his pain 8 or 9 out of 10 on the pain scale 2 his left chest incision site.) - Eyes PERRL, normal ocular movement - ENT normal pinna, normal nares, normal mucosa, no congestion, decreased hearing - Neck No lymphadenopathy, neck supple. no masses, no bruits, trachea midline, no venous distension - Respiratory Lung sounds essentially clear to his bilateral upper lobes, few scattered crackles to his bilateral bases left greater than right. Respirations are symmetrical and nonlabored. Oxygen saturation is 97% on 2 L nasal cannula. - Cardiovascular Regular rhythm and rate. S1 and S2 present, negative for S3, gallop or murmur. Bedside telemetry showing normal sinus rhythm heart rate 83. +1 to +2 pedal edema bilaterally. Peripheral pulses palpable. - Abdomen Abdomen is soft, nontender and nondistended. Active bowel sounds all 4 abdominal quadrants. Passing flatus. No organomegaly, no guarding or rigidity. - Genitourinary Adequate urine output. Voiding clear gianni urine. - Integumentary Left thoracotomy incision site clean dry and well approximated. Slight swelling surrounding the thoracotomy incision. No drainage or redness. Skin warm and dry to touch. No clubbing or cyanosis. no rash, no growths, no abnormal pigmentation - Neurologic normal coordination, normal sensation - Musculoskeletal normal gait, normal posture - Psychiatric oriented to time, oriented to person, oriented to place, speech is normal, memory intact Results - Laboratory Findings CBC and BMP: 12/06/17 08:10 12/06/17 08:10 PT/INR, D-dimer PT 11.2 sec (9.0-12.0) 12/06/17 08:10 INR 1.2 (<1.2) H 12/06/17 08:10 Abnormal lab findings: Abnormal Labs 12/06/17 12/06/17 12/06/17 08:10 08:10 08:10 WBC 13.8 H RBC 4.09 L Hgb 12.1 L Hct 37.8 L Neutrophils # 12.3 H Lymphocytes # 0.4 L INR Sodium 133 L Glucose 146 H Calcium 7.9 L AST 16 L Total Creatine Kinase 32 L Total Protein 4.6 L Albumin 2.5 L 12/06/17 08:10 WBC RBC Hgb Hct Neutrophils # Lymphocytes # INR 1.2 H Sodium Glucose Calcium AST Total Creatine Kinase Total Protein Albumin - Diagnostic Findings Chest x-ray: report reviewed, image reviewed CT scan - chest: report reviewed, image reviewed (Finding as noted above) Assessment and Plan Assessment: Ongoing sepsis along with left-sided pneumonia and pleural effusion Intractable postoperative chest wall pain Severe COPD emphysema Left diaphragmatic herniation status post repair with mesh Dyslipidemia hypertension hypertensive cardiovascular disease Plan: Pain control Gentle rehydration Broad-spectrum antibiotics Repeat radiographic studies in 48-72 hours to see the response of therapy Continue deep breathing exercises incentive spirometry DVT prophylaxis and peptic ulcer disease prophylaxis If pain is persistent and non-resolving consider anesthesia for pain management Time with Patient: Greater than 30
[2017-12-06] MEDS ORDERED: HYDROmorphone 0.5 MG/0.5 ML SYRINGE IVP PRN (21:03)
[2017-12-06] MEDS: PIPERACILLIN-TAZOBACTAM 3.375 GM in DEXTROSE/WATER 1 50ML.BAG IVPB SCH (21:43)
[2017-12-06] MEDS: VANCOMYCIN 1,750 MG in SODIUM CHLORIDE 0.9% 250 ML IVPB SCH (21:43)
[2017-12-07] MEDS: IPRATROPIUM-ALBUTEROL 3 ML NEB INHALATION PRN ×5 (03:20→20:19)
[2017-12-07] MEDS: PIPERACILLIN-TAZOBACTAM 3.375 GM in DEXTROSE/WATER 1 50ML.BAG IVPB SCH ×3 (05:41→17:48)
[2017-12-07] MEDS: PANTOPRAZOLE 40 MG TABLET PO SCH (06:37)
[2017-12-07] MEDS: KETOROLAC 30 MG/ML 1 ML VIAL IVP SCH ×4 (06:40→23:36)
[2017-12-07 06:54] LABS: Anion Gap 8 mmol/L; Carbon Dioxide 22 mmol/L (22-30); Chloride 101 mmol/L (98-107); Potassium 3.8 mmol/L (3.5-5.1); Sodium 131 mmol/L (137-145)
[2017-12-07 07:00] LABS: Blood Urea Nitrogen 17 mg/dL (9-20); Glucose 131 mg/dL (74-99)
--- NOTE | 2017-12-07 09:32 | P.PN ---
Subjective Progress Note Date: 12/07/17 Principal diagnosis: Ongoing postoperative left sided chest pain. Previous medical history of COPD, previous tobacco dependence, hypertension, hyperlipidemia, prostate disorder, hearing disorder. Status post left thoracotomy closure of diaphragmatic hernia with patch, repair of costochondral dislocation and subsequent lung herniation, completed 11/22/2017. Patient's currently sitting up at the bedside eating breakfast in no acute distress. is at bedside. States his pain is controlled with IV narcotics. Objective - Vital Signs Vital signs: Vital Signs Temp 96.4 F L 12/07/17 07:59 Pulse 104 H 12/07/17 08:26 Resp 18 12/07/17 08:00 BP 141/101 12/07/17 07:59 Pulse Ox 99 12/07/17 08:16 Intake & Output 12/06/17 12/07/17 12/07/17 18:59 06:59 18:59 Intake Total 473 590 Output Total 100 100 Balance 373 -100 590 Weight 58.5 kg 88.5 kg Intake: Oral 473 590 Output: Urine 100 100 Other: Voiding Method Toilet Toilet # Voids 1 1 - Constitutional General appearance: Present: cooperative, no acute distress - Respiratory Details: Lungs sounds diminished bilaterally with faint expiratory wheezes present, coarse breath sounds in the left base. Respirations even, nonlabored. Currently on room air with oxygen saturation 93%. Able to achieve 1500 mL on his incentive spirometry. - Cardiovascular Details: S1, S2 present. Regular rate and rhythm, sinus rhythm with occasional PVCs on telemetry. Palpable pulses bilaterally. No edema present. No calf pain or tenderness noted. - Gastrointestinal Gastrointestinal Comment(s): Abdomen soft, nontender, nondistended. Active bowel sounds 4 quadrants. Tolerating diet. - Genitourinary Genitourinary Comment(s): Continues to void clear, yellow urine. - Integumentary Integumentary Comment(s): Skin is warm and dry with evidence of good perfusion. Left lateral thoracotomy site well approximated. - Neurologic Neurologic: Present: CNII-XII intact - Musculoskeletal Musculoskeletal: Present: gait normal, strength equal bilaterally - Psychiatric Psychiatric: Present: A&O x's 3, appropriate affect, intact judgment & insight - Allied health notes Allied health notes reviewed: nursing - Labs CBC & Chem 7: 12/06/17 08:10 02/09/18 05:52 Labs: Abnormal Lab Results - Last 24 Hours (Table) 12/07/17 Range/Units 05:52 Sodium 131 L (137-145) mmol/L Glucose 131 H (74-99) mg/dL Calcium 8.0 L (8.4-10.2) mg/dL - Imaging and Cardiology Chest x-ray: report reviewed, image reviewed CT scan - chest: report reviewed, image reviewed Assessment and Plan (1) Hard of hearing Current Visit: Yes Status: Chronic Code(s): H91.90 - UNSPECIFIED HEARING LOSS, UNSPECIFIED EAR SNOMED Code(s): 20575999 (2) Pleural effusion Current Visit: Yes Status: Acute Code(s): J90 - PLEURAL EFFUSION, NOT ELSEWHERE CLASSIFIED SNOMED Code(s): 79184154 (3) Postoperative pain Current Visit: Yes Status: Chronic Code(s): G89.18 - OTHER ACUTE POSTPROCEDURAL PAIN SNOMED Code(s): 272083865 (4) COPD (chronic obstructive pulmonary disease) Current Visit: Yes Status: Chronic Code(s): J44.9 - CHRONIC OBSTRUCTIVE PULMONARY DISEASE, UNSPECIFIED SNOMED Code(s): 59691169 (5) History of hernia repair Current Visit: No Status: Chronic Code(s): Z98.890 - OTHER SPECIFIED POSTPROCEDURAL STATES; Z87.19 - PERSONAL HISTORY OF OTHER DISEASES OF THE DIGESTIVE SYSTEM SNOMED Code(s): 82743337627486 (6) Hyperlipidemia Current Visit: Yes Status: Chronic Code(s): E78.5 - HYPERLIPIDEMIA, UNSPECIFIED SNOMED Code(s): 61815923 (7) Hypertension Current Visit: Yes Status: Chronic Code(s): I10 - ESSENTIAL (PRIMARY) HYPERTENSION SNOMED Code(s): 56212504 (8) Prostate disorder Current Visit: Yes Status: Chronic Code(s): N42.9 - DISORDER OF PROSTATE, UNSPECIFIED SNOMED Code(s): 17905009 Plan: 1. Encourage continued incentive spirometry use. Encourage controlled coughing. 2. Pain management, antibiotics per primary care/pulmonology services. 3. DVT/GI prophylaxis. 4. Increase activity, ambulate as able. 5. We'll continue to monitor left chest fluid collection in case it needs to be drained during this hospitalization. 6. Medical management per Dr. Moss. 7. More recommendations to follow. Time with Patient: Greater than 30
[2017-12-07] MEDS ORDERED: NON-FORMULARY DRUG (Omeprazole [Omeprazole] 20 MG) PO SCH (09:45)
[2017-12-07] MEDS: LISINOPRIL 10 MG TAB PO SCH (10:16)
[2017-12-07] MEDS: MECLIZINE 25 MG TAB PO SCH (10:16)
[2017-12-07] MEDS: methylPREDNISolone SOD SUCCI 40 MG/ML 1 ML VIAL IV SCH (10:16)
[2017-12-07] MEDS: VANCOMYCIN 1,750 MG in SODIUM CHLORIDE 0.9% 250 ML IVPB SCH ×2 (10:22→21:11)
[2017-12-07] MEDS: traMADol 50 MG TAB PO PRN ×2 (10:24→16:25)
[2017-12-07] MEDS: HYDROcodone/APAP 10-325MG 1 EACH TAB PO PRN (13:22)
[2017-12-07] MEDS: BENZONATATE 100 MG CAP PO SCH ×2 (16:25→20:42)
[2017-12-07] MEDS: BUDESONIDE 0.5 MG/2 ML NEBU INHALATION SCH (20:19)
[2017-12-07] MEDS: MONTELUKAST 10 MG TAB PO SCH (20:42)
[2017-12-07] MEDS: TAMSULOSIN 0.4 MG CAP.ER.24H PO SCH (20:42)
[2017-12-07] MEDS: LORazepam 0.5 MG TAB PO SCH (20:43)
[2017-12-07] MEDS: ATORVASTATIN 10 MG TAB PO SCH (20:43)
[2017-12-07] MEDS: FINASTERIDE 5 MG TAB PO SCH (20:43)
[2017-12-08] MEDS: PIPERACILLIN-TAZOBACTAM 3.375 GM in DEXTROSE/WATER 1 50ML.BAG IVPB SCH ×3 (02:52→18:03)
[2017-12-08] MEDS: KETOROLAC 30 MG/ML 1 ML VIAL IVP SCH (05:45)
[2017-12-08] MEDS: PANTOPRAZOLE 40 MG TABLET PO SCH (05:50)
[2017-12-08] MEDS: IPRATROPIUM-ALBUTEROL 3 ML NEB INHALATION PRN (06:54)
[2017-12-08] MEDS: BUDESONIDE 0.5 MG/2 ML NEBU INHALATION SCH ×2 (06:54→19:04)
[2017-12-08] MEDS ORDERED: VANCOMYCIN TROUGH DUE 1 EACH MISC MISCELLANE ONE (08:00)
--- NOTE | 2017-12-08 08:04 | P.PN ---
Subjective Progress Note Date: 12/08/17 Principal diagnosis: Ongoing postoperative left sided chest pain. Previous medical history of COPD, previous tobacco dependence, hypertension, hyperlipidemia, prostate disorder, hearing disorder. Status post left thoracotomy closure of diaphragmatic hernia with patch, repair of costochondral dislocation and subsequent lung herniation, completed 11/22/2017. Patient was sitting up in bed in no acute distress this morning upon initial assessment, stated pain is controlled with ordered medications. States he is still short of breath which has not changed. Upon second assessment when is in the room patient is very anxious. reports that the patient had an episode this morning of extreme shortness of breath when ambulating to the bathroom, was placed on oxygen which did help. Objective - Vital Signs Vital signs: Vital Signs Temp 97.4 F L 12/08/17 04:00 Pulse 76 12/08/17 07:10 Resp 20 12/08/17 04:00 BP 157/78 12/08/17 04:00 Pulse Ox 95 12/08/17 06:57 Intake & Output 12/07/17 12/08/17 12/08/17 18:59 06:59 18:59 Intake Total 1607 Balance 1607 Weight 89.2 kg Intake: Intake, IV Titration 300 Amount Piperacillin-Tazobactam 3 50 .375 gm In Dextrose/Water 1 50ml.bag @ 12.5 mls/hr IVPB Q8H [facility] Rx#: [id number] Vancomycin 1,750 mg In 250 Sodium Chloride 0.9% 250 ml @ 125 mls/hr IVPB Q12H [facility] Rx#:[id number] Oral 1307 Other: Voiding Method Toilet Toilet # Voids 1 2 - Constitutional General appearance: Present: cooperative, no acute distress - Respiratory Details: Lungs sounds diminished throughout with coarse breath sounds in the left base. Respirations even, nonlabored. Currently on 3 L nasal cannula with oxygen saturation 95%. Positive effective cough. Able to achieve 2000 mL on his incentive spirometry. - Cardiovascular Details: S1, S2 present. Regular rate and rhythm, sinus rhythm to sinus tach with occasional PVCs on telemetry. Palpable pulses bilaterally. Trace bilateral lower extremity edema present. No calf pain or tenderness noted. - Gastrointestinal Gastrointestinal Comment(s): Abdomen soft, nontender, nondistended. Active bowel sounds 4 quadrants. Tolerating diet. - Genitourinary Genitourinary Comment(s): Continues to void clear, yellow urine. - Integumentary Integumentary Comment(s): Skin is warm and dry with evidence of good perfusion. Left lateral chest wall incision well approximated. - Neurologic Neurologic: Present: CNII-XII intact - Musculoskeletal Musculoskeletal: Present: gait normal, strength equal bilaterally - Psychiatric Psychiatric Comment(s): Highly anxious when the is in the room. Psychiatric: Present: A&O x's 3 - Allied health notes Allied health notes reviewed: nursing - Labs CBC & Chem 7: 12/06/17 08:10 12/07/17 05:52 Labs: Microbiology - Last 24 Hours (Table) 12/06/17 08:10 Blood Culture - Preliminary Blood No Growth after 24 hours - Imaging and Cardiology Chest x-ray: pending Assessment and Plan (1) Hard of hearing Current Visit: Yes Status: Chronic Code(s): H91.90 - UNSPECIFIED HEARING LOSS, UNSPECIFIED EAR SNOMED Code(s): 80103698 (2) Pleural effusion Current Visit: Yes Status: Acute Code(s): J90 - PLEURAL EFFUSION, NOT ELSEWHERE CLASSIFIED SNOMED Code(s): 11780799 (3) Postoperative pain Current Visit: Yes Status: Chronic Code(s): G89.18 - OTHER ACUTE POSTPROCEDURAL PAIN SNOMED Code(s): 329364229 (4) COPD (chronic obstructive pulmonary disease) Current Visit: Yes Status: Chronic Code(s): J44.9 - CHRONIC OBSTRUCTIVE PULMONARY DISEASE, UNSPECIFIED SNOMED Code(s): 31559241 (5) History of hernia repair Current Visit: No Status: Chronic Code(s): Z98.890 - OTHER SPECIFIED POSTPROCEDURAL STATES; Z87.19 - PERSONAL HISTORY OF OTHER DISEASES OF THE DIGESTIVE SYSTEM SNOMED Code(s): 78171965652138 (6) Hyperlipidemia Current Visit: Yes Status: Chronic Code(s): E78.5 - HYPERLIPIDEMIA, UNSPECIFIED SNOMED Code(s): 86877666 (7) Hypertension Current Visit: Yes Status: Chronic Code(s): I10 - ESSENTIAL (PRIMARY) HYPERTENSION SNOMED Code(s): 25556740 (8) Prostate disorder Current Visit: Yes Status: Chronic Code(s): N42.9 - DISORDER OF PROSTATE, UNSPECIFIED SNOMED Code(s): 15038499 Plan: 1. Encourage continued incentive spirometry use. Encourage controlled coughing. 2. Pain management, steroids, antibiotics per primary care/pulmonology services. 3. DVT/GI prophylaxis. 4. Increase activity, ambulate as able. 5. Chest x-ray ordered as Dr. Moss's note from December 06 states to repeat radiographic films after 48-72 hours to evaluate therapy. 6. We'll continue to monitor left chest fluid collection in case it needs to be drained during this hospitalization. 7. Medical management per Dr. Moss. 8. More recommendations to follow. Time with Patient: Greater than 30
[2017-12-08 08:13] LABS: Anion Gap 11 mmol/L; Blood Urea Nitrogen 12 mg/dL (9-20); Calcium 8.5 mg/dL (8.4-10.2); Carbon Dioxide 24 mmol/L (22-30); Chloride 102 mmol/L (98-107); Glucose 190 mg/dL (74-99); Potassium 3.5 mmol/L (3.5-5.1); Sodium 137 mmol/L (137-145)
--- NOTE | 2017-12-08 08:24 | XR ---
EXAMINATION TYPE: XR chest 1V portable DATE OF EXAM: 12/08/2017 HISTORY: shortness of breath. REFERENCE: Previous study dated 12/06/2017. FINDINGS: Lung volumes are prominent. Heart size upper limits of normal. There is increased opacity o f the left lung base, unchanged from previous. This likely represents airspace disease. There is a sm all left effusion. IMPRESSION: SLIGHT IMPROVED AERATION, LEFT LUNG BASE.
[2017-12-08] MEDS ORDERED: SODIUM CHLORIDE 0.65% NASAL SPRAY 44 ML BTL NASAL PRN (08:28)
[2017-12-08] MEDS: methylPREDNISolone SOD SUCCI 40 MG/ML 1 ML VIAL IV SCH ×2 (08:40→22:19)
[2017-12-08] MEDS: LISINOPRIL 10 MG TAB PO SCH (08:41)
[2017-12-08] MEDS: BENZONATATE 100 MG CAP PO SCH ×3 (08:41→21:27)
[2017-12-08] MEDS: MECLIZINE 25 MG TAB PO SCH (08:41)
[2017-12-08] MEDS: VANCOMYCIN 1,750 MG in SODIUM CHLORIDE 0.9% 250 ML IVPB SCH (08:43)
--- NOTE | 2017-12-08 09:21 | P.PN ---
Subjective Progress Note Date: 12/07/17 (Late entry note) Principal diagnosis: Bilateral basal pneumonia, left-sided thoracic wall and chest pain, acute COPD exacerbation, purulent tracheobronchitis, left-sided loculated small pleural effusion 12/07/2017, patient seen and evaluated examined during the rounds, severity of left-sided chest wall pain is better but however patient has been noted by intermittent apneic events this detailed discussion with the patient advised to lower down the amount of pain medications, would continue antibiotics breathing treatments appreciate input from surgical services Patient admitted on 12/06/2017 with chief complaint of Shortness of breath and severe degree of chest pain on the left side Patient seen and evaluated examined in the ER as well as on 6 floor, This is a 72-year-old gentleman who is followed by Dr. Quinton Gary on an outpatient basis. His past medical history significant for chronic obstructive pulmonary disease, previous tobacco dependence, hypertension hyperlipidemia, prostate disorder, Mnire's disease, and hearing disorder. presented to the emergency department today via EMS with uncontrolled postoperative pain to his left chest. Patient had the recent acute COPD exacerbation in September 2017 was subsequently discharged and then readmitted in October with severe excruciating left-sided chest wall pain found to have the left diaphragmatic hernia On 2017 the patient underwent a successful left thoracotomy closure of a diaphragmatic hernia with patch and repair of the costochondral dislocation and subsequent lung herniation. He was discharged home 11/26/2017 and presented back to the [facility] emergency department on 11/30/2017 with complaints of postoperative left chest wall pain and progressive progressive shortness of breath. He reports that his pain is a stabbing pain to his left lower abdomen all the way up to his left shoulder. Patient at that time was treated with the IV antibiotics and CAT scan revealed strandy infiltrate at both bases along with alveolitis-like Petrin bilaterally Currently He also reports that he has some shortness of breath and a persistent dry cough. He states that he has not been unable to use his incentive spirometry consistently at home due to the pain with deep breathing. He denies any complaints of nausea, vomiting, diarrhea, fever, or chills. Lab work showed a WBC count of 13.8, Hgb count of 12.1, BUN 18, creatinine 0.90. On presentation to the emergency department he had a low-grade fever of 100.3F, heart rate 75, blood pressure 89/53. A chest x-ray was completed which showed mild cardiomegaly, chronic emphysematous change with left greater than right bibasilar atelectasis and/or infiltrate with small left pleural fluid collection. A follow-up CT scan of his chest was completed which demonstrated fluid extending from a left pleural effusion between posterior lateral left ribs 8 and 9 into the subcutaneous tissue. Objective - Vital Signs Vital signs: Vital Signs Temp 96.6 F L 12/08/17 08:55 Pulse 96 12/08/17 08:55 Resp 22 12/08/17 08:55 BP 131/75 12/08/17 08:55 Pulse Ox 96 12/08/17 08:55 Intake & Output 12/07/17 12/08/17 12/08/17 18:59 06:59 18:59 Intake Total 1607 250 Balance 1607 250 Weight 89.2 kg Intake: Intake, IV Titration 300 250 Amount Piperacillin-Tazobactam 3 50 .375 gm In Dextrose/Water 1 50ml.bag @ 12.5 mls/hr IVPB Q8H [facility] Rx#: [id number] Vancomycin 1,750 mg In 250 250 Sodium Chloride 0.9% 250 ml @ 125 mls/hr IVPB Q12H [facility] Rx#:[id number] Oral 1307 Other: Voiding Method Toilet Toilet Toilet # Voids 1 2 - Exam General well developed, well nourished, no distress, moderate pain (Currently rates his pain 8 or 9 out of 10 on the pain scale 2 his left chest incision site.) - Eyes PERRL, normal ocular movement - ENT normal pinna, normal nares, normal mucosa, no congestion, decreased hearing - Neck No lymphadenopathy, neck supple. no masses, no bruits, trachea midline, no venous distension - Respiratory Lung sounds essentially clear to his bilateral upper lobes, few scattered crackles to his bilateral bases left greater than right. Respirations are symmetrical and nonlabored. Oxygen saturation is 97% on 2 L nasal cannula. - Cardiovascular Regular rhythm and rate. S1 and S2 present, negative for S3, gallop or murmur. Bedside telemetry showing normal sinus rhythm heart rate 83. +1 to +2 pedal edema bilaterally. Peripheral pulses palpable. - Abdomen Abdomen is soft, nontender and nondistended. Active bowel sounds all 4 abdominal quadrants. Passing flatus. No organomegaly, no guarding or rigidity. - Genitourinary Adequate urine output. Voiding clear gianni urine. - Integumentary Left thoracotomy incision site clean dry and well approximated. Slight swelling surrounding the thoracotomy incision. No drainage or redness. Skin warm and dry to touch. No clubbing or cyanosis. no rash, no growths, no abnormal pigmentation - Neurologic normal coordination, normal sensation - Musculoskeletal normal gait, normal posture - Psychiatric oriented to time, oriented to person, oriented to place, speech is normal, memory intact - Labs CBC & Chem 7: 12/06/17 08:10 12/08/17 07:48 Labs: Abnormal Lab Results - Last 24 Hours (Table) 12/08/17 Range/Units 07:48 Glucose 190 H (74-99) mg/dL Microbiology - Last 24 Hours (Table) 12/06/17 08:10 Blood Culture - Preliminary Blood No Growth after 24 hours Assessment and Plan Assessment: Ongoing sepsis along with left-sided pneumonia and pleural effusion Left-sided small loculated pleural effusion Intractable postoperative chest wall pain Severe COPD emphysema, with acute COPD exacerbation Left diaphragmatic herniation status post repair with mesh Left-sided costal chondral fracture and dislocation with lung herniation status post repair done along with the left diaphragmatic hernia repair with mesh Dyslipidemia hypertension hypertensive cardiovascular disease Plan: Pain control Gentle rehydration Broad-spectrum antibiotics for bilateral pneumonia Repeat radiographic studies in 48-72 hours to see the response of therapy Continue deep breathing exercises incentive spirometry DVT prophylaxis and peptic ulcer disease prophylaxis If pain is persistent and non-resolving consider anesthesia for pain management Time with Patient: Greater than 30
--- NOTE | 2017-12-08 09:36 | P.PN ---
Subjective Progress Note Date: 12/08/17 Principal diagnosis: Bilateral basal pneumonia, left-sided thoracic wall and chest pain, acute COPD exacerbation, purulent tracheobronchitis, left-sided loculated small pleural effusion, recent left diaphragmatic perforation with herniation abdominal content, with costochondral fracture dislocation status post repair of both 12/08/2017, patient seen and evaluated examined during the rounds patient has a acute onset episode of severe anxiety and apprehension and shortness of breath and wheezing earlier this morning x-ray was performed which is reviewed, patient has severe bronchospasm and chest tightness was given emergent breathing treatments and 1 mg of Dilaudid as well as interventions were extremely helpful is severe due to pain is much better under control but is still short of breath bilateral audible wheezing is present. Patient's pain however is better under control otherwise with 3 medications including tramadol , Toradol, Ava and as needed Dilaudid but however they are intermittent and reports of apnea which is transient though would recommend to DC the tramadol and use Toradol and Ava as needed and Dilaudid for severe pain, will continue the Tessalon Perles to avoid excessive coughing, in addition to above I'm going to increase Solu-Medrol to every 12, add Perforomist, use DuoNeb 4 times a day [id number], this detailed discussion occurred with the and patient time spent over 35 minutes, chest x-ray performed today reviewed as well in fact some improved aviation in the left base has been noted, will obtain infectious disease consultation as well to guide us about extended length of antibiotic therapy labs have been ordered as well 12/07/2017, patient seen and evaluated examined during the rounds, severity of left-sided chest wall pain is better but however patient has been noted by intermittent apneic events this detailed discussion with the patient advised to lower down the amount of pain medications, would continue antibiotics breathing treatments appreciate input from surgical services Patient admitted on 12/06/2017 with chief complaint of Shortness of breath and severe degree of chest pain on the left side Patient seen and evaluated examined in the ER as well as on 6 floor, This is a 72-year-old gentleman who is followed by Dr. Quinton Gary on an outpatient basis. His past medical history significant for chronic obstructive pulmonary disease, previous tobacco dependence, hypertension hyperlipidemia, prostate disorder, Mnire's disease, and hearing disorder. presented to the emergency department today via EMS with uncontrolled postoperative pain to his left chest. Patient had the recent acute COPD exacerbation in September 2017 was subsequently discharged and then readmitted in October with severe excruciating left-sided chest wall pain found to have the left diaphragmatic hernia On 2017 the patient underwent a successful left thoracotomy closure of a diaphragmatic hernia with patch and repair of the costochondral dislocation and subsequent lung herniation. He was discharged home 11/26/2017 and presented back to the [facility] emergency department on 11/30/2017 with complaints of postoperative left chest wall pain and progressive progressive shortness of breath. He reports that his pain is a stabbing pain to his left lower abdomen all the way up to his left shoulder. Patient at that time was treated with the IV antibiotics and CAT scan revealed strandy infiltrate at both bases along with alveolitis-like Petrin bilaterally Currently He also reports that he has some shortness of breath and a persistent dry cough. He states that he has not been unable to use his incentive spirometry consistently at home due to the pain with deep breathing. He denies any complaints of nausea, vomiting, diarrhea, fever, or chills. Lab work showed a WBC count of 13.8, Hgb count of 12.1, BUN 18, creatinine 0.90. On presentation to the emergency department he had a low-grade fever of 100.3F, heart rate 75, blood pressure 89/53. A chest x-ray was completed which showed mild cardiomegaly, chronic emphysematous change with left greater than right bibasilar atelectasis and/or infiltrate with small left pleural fluid collection. A follow-up CT scan of his chest was completed which demonstrated fluid extending from a left pleural effusion between posterior lateral left ribs 8 and 9 into the subcutaneous tissue. Objective - Vital Signs Vital signs: Vital Signs Temp 96.6 F L 12/08/17 08:55 Pulse 96 12/08/17 08:55 Resp 22 12/08/17 08:55 BP 131/75 12/08/17 08:55 Pulse Ox 96 12/08/17 08:55 Intake & Output 12/07/17 12/08/17 12/08/17 18:59 06:59 18:59 Intake Total 1607 250 Balance 1607 250 Weight 89.2 kg Intake: Intake, IV Titration 300 250 Amount Piperacillin-Tazobactam 3 50 .375 gm In Dextrose/Water 1 50ml.bag @ 12.5 mls/hr IVPB Q8H [facility] Rx#: [id number] Vancomycin 1,750 mg In 250 250 Sodium Chloride 0.9% 250 ml @ 125 mls/hr IVPB Q12H [facility] Rx#:[id number] Oral 1307 Other: Voiding Method Toilet Toilet Toilet # Voids 1 2 - Exam General well developed, well nourished, no distress, moderate pain (Currently rates his pain 8 or 9 out of 10 on the pain scale 2 his left chest incision site.) - Eyes PERRL, normal ocular movement - ENT normal pinna, normal nares, normal mucosa, no congestion, decreased hearing - Neck No lymphadenopathy, neck supple. no masses, no bruits, trachea midline, no venous distension - Respiratory Lung sounds essentially clear to his bilateral upper lobes, few scattered crackles to his bilateral bases left greater than right. Respirations are symmetrical and nonlabored. Oxygen saturation is 95% on 2 L nasal cannula, bilateral inspiratory expiratory wheezing are present, chest wall is nontender at surgical sites which appears to be healing very well - Cardiovascular Regular rhythm and rate. S1 and S2 present, negative for S3, gallop or murmur. Bedside telemetry showing normal sinus rhythm heart rate 83. +1 to +2 pedal edema bilaterally. Peripheral pulses palpable. - Abdomen Abdomen is soft, nontender and nondistended. Active bowel sounds all 4 abdominal quadrants. Passing flatus. No organomegaly, no guarding or rigidity. - Genitourinary Adequate urine output. Voiding clear gianni urine. - Integumentary Left thoracotomy incision site clean dry and well approximated. Slight swelling surrounding the thoracotomy incision. No drainage or redness. Skin warm and dry to touch. No clubbing or cyanosis. no rash, no growths, no abnormal pigmentation - Neurologic normal coordination, normal sensation - Musculoskeletal normal gait, normal posture - Psychiatric oriented to time, oriented to person, oriented to place, speech is normal, memory intact - Labs CBC & Chem 7: 12/06/17 08:10 12/08/17 07:48 Labs: Abnormal Lab Results - Last 24 Hours (Table) 12/08/17 Range/Units 07:48 Glucose 190 H (74-99) mg/dL Microbiology - Last 24 Hours (Table) 12/06/17 08:10 Blood Culture - Preliminary Blood No Growth after 24 hours Assessment and Plan Assessment: Ongoing sepsis along with left-sided pneumonia and left pleural effusion, right basal pneumonia cannot be excluded Patient is at high risk of developing complicated pneumonia given recent left diaphragmatic perforation with costochondral dislocation and fracture and postoperative status Left-sided small loculated pleural effusion Intractable postoperative chest wall pain Severe COPD emphysema, with acute COPD exacerbation Left diaphragmatic herniation status post repair with mesh Left-sided costal chondral fracture and dislocation with lung herniation status post repair done along with the left diaphragmatic hernia repair with mesh Dyslipidemia hypertension hypertensive cardiovascular disease Plan: Pain control, as noted above Gentle rehydration Broad-spectrum antibiotics for bilateral pneumonia, ID consult Repeat radiographic studies reviewed will follow obtain another chest x-ray next 24-48 hours Continue deep breathing exercises incentive spirometry DVT prophylaxis and peptic ulcer disease prophylaxis If pain is persistent and non-resolving consider anesthesia for pain management Labs have been ordered Respiratory therapy has been adjusted Time with Patient: Greater than 30
[2017-12-08] MEDS: IPRATROPIUM-ALBUTEROL 3 ML NEB INHALATION SCH ×3 (10:52→19:04)
[2017-12-08] MEDS: KETOROLAC 30 MG/ML 1 ML VIAL IVP PRN ×2 (11:47→18:01)
[2017-12-08] MEDS: INSULIN ASPART 100 UNIT/ML 1 ML 10 ML VIAL SQ SCH ×3 (13:42→21:37)
[2017-12-08] MEDS: ALPRAZolam 0.25 MG TAB PO PRN (14:28)
[2017-12-08 17:35] LABS: Glucose,Whole Blood 138 mg/dL (75-99)
[2017-12-08] MEDS: FORMOTEROL FUMARATE 20 MCG/2 ML NEBU INHALATION SCH (19:04)
[2017-12-08 21:20] LABS: Hemoglobin A1C 5.9 % (4.0-6.0)
[2017-12-08] MEDS: TAMSULOSIN 0.4 MG CAP.ER.24H PO SCH (21:26)
[2017-12-08] MEDS: ATORVASTATIN 10 MG TAB PO SCH (21:26)
[2017-12-08] MEDS: MONTELUKAST 10 MG TAB PO SCH (21:26)
[2017-12-08] MEDS: FINASTERIDE 5 MG TAB PO SCH (21:26)
[2017-12-08] MEDS: LORazepam 0.5 MG TAB PO SCH (21:26)
[2017-12-08 21:28] LABS: Glucose,Whole Blood 179 mg/dL (75-99)
[2017-12-08] MEDS: HYDROcodone/APAP 10-325MG 1 EACH TAB PO PRN (21:41)
[2017-12-08] MEDS: VANCOMYCIN 2,000 MG in SODIUM CHLORIDE 0.9% 500 ML IVPB SCH (22:24)
--- NOTE | 2017-12-08 23:43 | P.CONS ---
History of Present Illness - Reason for Consult Consult date: 12/08/17 - Chief Complaint fever - History of Present Illness Mia 72-year-old male presents to Hospital for significant and ongoing pain. This pleasant gentleman relates that in early October he was having significant difficulty with severe cough related to COPD and underlying infection. His related that he coughed so hard he caused a costochondral dislocation as well as a left diaphragmatic rupture with herniation. He was evaluated by Dr. Avila to cardiothoracic surgery was taken to the operating room where a thoracotomy was performed for appear of the diaphragm with mesh as well as repair of the costochondral dislocation. Postoperatively the patient was doing relatively well and was sent home on 11/26/2017. In home setting was doing relatively well. Over significant difficulties was more cough his pain became uncontrolled presented back to the emergency center where he is been admitted. Imaging studies showed evidence of some fluid in the region and there is concern for underlying infection the patient also had a low-grade fever and with that the infectious disease consultation was requested. Patient currently is denying high-grade fevers chills or rigors or sweats. His pain is much better controlled. Review of Systems HEENT:Denies headache or acute visual change. Denies sinus or mouth discomforts. Denies neck stiffness or pain. Denies significant oral cavity pain. Denies difficulty on swallowing. Lungs: He has baseline shortness of breath cough is improved severe chest pain is improved chest wall pain is improved Cardiovascular: Denies orthopnea, worsening dyspnea on exertion, or syncope Gastrointestinal:Denies nausea, vomiting, diarrhea, constipation, hematemesis, melena, hematochezia. No no significant change of bowel habit noticed. Musculoskeletal: denies significant myalgias or arthralgias. No new joint swelling. Denies new back pain. Skin: Denies new rash or lesions. No new ulcers or wounds are related.. Neuro: Denies headache or visual change. Denies any new onset weakness or difficulty with ambulation. Denies falls or seizures. Psychiatric:Denies anxiety or depression. Endocrine: Denies significant fatigue, denies significant weight loss or weight gain. Past Medical History Past Medical History: COPD, Hearing Disorder / Deafness, Hyperlipidemia, Hypertension, Prostate Disorder Additional Past Medical History / Comment(s): emphysema, history of menieres disease History of Any Multi-Drug Resistant Organisms: None Reported Past Surgical History: Hernia Repair, Tonsillectomy Additional Past Surgical History / Comment(s): hernia X2, cyst on hand, right foot pin in great toe. Left thoracotomy closure of diaphragmatic hernia with patch, repair of costochondral dislocation with subsequent lung herniation November 22 2017 Past Anesthesia/Blood Transfusion Reactions: No Reported Reaction Past Psychological History: No Psychological Hx Reported Additional Psychological History / Comment(s): . Retired from the [employer]. experience with the [employer], no international travel. No animal exposures Smoking Status: Former smoker Past Alcohol Use History: None Reported Past Drug Use History: None Reported - Past Family History Mother Family Medical History: Dementia Additional Family Medical History / Comment(s): breast cancer Father Family Medical History: No Reported History Medications and Allergies Home Medications and Allergies Comment(s): Current Medications Hydrocodone Bitart/Acetaminophen (Dudley 10) 1 each PO QID PRN PRN Reason: Pain Last Admin: 12/08/17 21:41 Dose: 1 each Albuterol/Ipratropium (Duoneb 0.5 Mg-3 Mg/3 Ml Soln) 3 ml INHALATION RT-QID PRN PRN Reason: Shortness Of Breath Or Wheezing Last Admin: 12/08/17 06:54 Dose: 3 ml Albuterol/Ipratropium (Duoneb 0.5 Mg-3 Mg/3 Ml Soln) 3 ml INHALATION RT-QID [facility] [place] Last Admin: 12/08/17 19:04 Dose: 3 ml Alprazolam (Xanax) 0.25 mg PO TID PRN PRN Reason: Anxiety Last Admin: 12/08/17 14:28 Dose: 0.25 mg Atorvastatin Calcium (Lipitor) 10 mg PO [facility] Last Admin: 12/08/17 21:26 Dose: 10 mg Benzonatate (Tessalon Perles) 200 mg PO TID [facility] Last Admin: 12/08/17 21:27 Dose: 200 mg Budesonide (Pulmicort) 0.5 mg INHALATION RT-BID [facility] Last Admin: 12/08/17 19:04 Dose: 0.5 mg Finasteride (Proscar) 5 mg PO [facility] Last Admin: 12/08/17 21:26 Dose: 5 mg Formoterol Fumarate (Perforomist) 20 mcg INHALATION RT-BID [facility] [place] Last Admin: 12/08/17 19:04 Dose: 20 mcg Hydromorphone HCl (Dilaudid) 1 mg IVP Q6HR PRN PRN Reason: Pain Last Admin: 12/07/17 05:36 Dose: 1 mg Piperacillin/Tazobactam/ (Dextrose 3.375 gm/ IV Solution) 50 mls @ 12.5 mls/hr IVPB Q8H [facility] Last Admin: 12/08/17 18:03 Dose: 12.5 mls/hr Vancomycin HCl 2,000 mg/ (Sodium Chloride) 500 mls @ 166.667 mls/hr IVPB Q12H [facility] [place] Last Admin: 12/08/17 22:24 Dose: 166.667 mls/hr Indapamide (Lozol) 1.25 mg PO DAILY [facility] [place] Insulin Aspart (Novolog) 0 unit SQ ACHS [facility] PRN Reason: Protocol Last Admin: 12/08/17 21:37 Dose: 4 unit Ketorolac Tromethamine (Toradol) 15 mg IVP Q6HR PRN PRN Reason: Pain Stop: 12/10/17 16:28 Last Admin: 12/08/17 18:01 Dose: 15 mg Lisinopril (Zestril) 10 mg PO DAILY [facility] Last Admin: 12/08/17 08:41 Dose: 10 mg Loratadine (Claritin) 10 mg PO DAILY [facility] Lorazepam (Ativan) 0.5 mg PO [facility] Last Admin: 12/08/17 21:26 Dose: 0.5 mg Meclizine HCl (Antivert) 25 mg PO DAILY [facility] Last Admin: 12/08/17 08:41 Dose: 25 mg Methylprednisolone Sodium Succinate (Solu-Medrol) 40 mg IV Q12HR [facility] Last Admin: 12/08/17 22:19 Dose: 40 mg Montelukast Sodium (Singulair) 10 mg PO [facility] Last Admin: 12/08/17 21:26 Dose: 10 mg Pantoprazole Sodium (Protonix) 40 mg PO AC-BRKFST [facility] Last Admin: 12/08/17 05:50 Dose: 40 mg Sodium Chloride (Deep Sea) 2 spray NASAL QID PRN PRN Reason: Dry Nasal Passages Tamsulosin HCl (Flomax) 0.4 mg PO [facility] Last Admin: 12/08/17 21:26 Dose: 0.4 mg Home Medications Medication Instructions Recorded Confirmed Type Albuterol Inhaler [Ventolin Hfa 2 puff INHALATION RT-Q6H PRN 11/18/17 12/06/17 History Inhaler] Benzonatate [Benzonatate Perle] 200 mg PO TID 11/18/17 12/06/17 History Budesonide [Pulmicort] 0.5 mg INHALATION RT-BID 11/18/17 12/06/17 History Finasteride [Proscar] 5 mg PO HS 11/18/17 12/06/17 History Ipratropium-Albuterol Nebulize 3 ml INHALATION RT-QID 11/18/17 12/06/17 History [Duoneb 0.5 mg-3 mg/3 ml Soln] LORazepam [Ativan] 0.5 mg PO HS 11/18/17 12/06/17 History Lovastatin [Mevacor] 10 mg PO HS 11/18/17 12/06/17 History Meclizine [Antivert] 25 mg PO DAILY 11/18/17 12/06/17 History Montelukast [Singulair] 10 mg PO HS 11/18/17 12/06/17 History Omeprazole 20 mg PO DAILY 11/18/17 12/06/17 History Tamsulosin HCl [Flomax] 0.4 mg PO HS 11/18/17 12/06/17 History Lisinopril [Zestril] 10 mg PO DAILY #0 11/26/17 12/06/17 Rx predniSONE See Taper PO DAILY 11/30/17 12/06/17 History traMADol HCl [Ultram] 50 - 100 mg PO QID PRN 11/30/17 12/06/17 History Cefuroxime Axetil [Ceftin] 500 mg PO BID #14 tab 12/03/17 12/06/17 Rx Etodolac [Lodine] 400 mg PO BID #30 tab 12/03/17 12/06/17 Rx HYDROcodone/APAP 10-325MG [Dudley 1 tab PO QID PRN #30 tab 12/03/17 12/06/17 Rx 10-325] Azithromycin [Zithromax] 500 mg PO DAILY 12/06/17 12/06/17 History Allergies Allergy/AdvReac Type Severity Reaction Status Date / Time No Known Allergies Allergy Verified 12/06/17 08:34 Physical Exam Vitals: Vital Signs Temp Pulse Pulse Pulse Resp BP Pulse Ox 12/08/17 20:00 97.7 F 98 98 20 132/75 93 L 12/08/17 19:25 78 12/08/17 19:15 76 12/08/17 19:14 76 12/08/17 19:04 72 12/08/17 16:02 96.7 F L 87 20 161/77 93 L 12/08/17 15:40 72 12/08/17 15:30 72 12/08/17 11:41 96.1 F L 99 20 161/85 96 12/08/17 11:02 76 12/08/17 10:53 80 12/08/17 08:55 96.6 F L 96 22 131/75 96 12/08/17 07:10 76 12/08/17 06:57 70 95 12/08/17 04:00 97.4 F L 70 18 157/78 93 L 12/08/17 00:00 97.6 F 94 20 147/81 92 L Intake and Output 12/08/17 12/08/17 12/09/17 14:59 22:59 06:59 Intake Total 610 230 Output Total 800 Balance -190 230 Intake: Intake, IV Titration 250 50 Amount Piperacillin-Tazobactam 3 50 .375 gm In Dextrose/Water 1 50ml.bag @ 12.5 mls/hr IVPB Q8H [facility] Rx#: [id number] Vancomycin 1,750 mg In 250 Sodium Chloride 0.9% 250 ml @ 125 mls/hr IVPB Q12H [facility] Rx#:[id number] Oral 360 180 Output: Urine 800 Other: Voiding Method Toilet Toilet Pleasant 72-year-old gentleman who relates she is much more comfortable now than 24 hours ago. HEENT: Anicteric conjunctiva are pink and moist nasal mucosa grossly intact without significant lesions, there is no thrush. Neck: The neck is supple without significant lymphadenopathy or thyromegaly. Lungs: They're symmetrical air entry there are crackles at the left base but no britney bronchial sounds no dullness or egophony. Is able to take good deep breaths with only minimal discomfort and does not have significant coughing with a deep breath. Heart: Irregular with an audible S1 and S2 without S4. There is no significant murmur click or rub, PMI was nondisplaced. Abdomen: Positive bowel sounds soft and nontender without palpable masses or organomegaly. There was no guarding or rebound. Extremities: The upper extremities have excellent pulses they are symmetric, no significant petechiae or telangiectasia. No splinter hemorrhages were noted. The lower extremities are free from significant edema. The peripheral pulses were 2+ and symmetric. Neuro: Awake alert oriented to person place and time. There are no acute new gross focal sensory motor deficits. Surgical wound to the left chest in the thoracotomy position is healing well without erythema crepitance or fluctuance. Results CBC & Chem 7: 12/06/17 08:10 12/08/17 07:48 Labs: Abnormal Lab Results - Last 24 Hours (Table) 12/08/17 12/08/17 12/08/17 Range/Units 07:48 17:20 21:12 Glucose 190 H (74-99) mg/dL POC Glucose (mg/dL) 138 H 179 H (75-99) mg/dL Microbiology - Last 24 Hours (Table) 12/06/17 08:10 Blood Culture - Preliminary Blood No Growth after 48 hours Laboratory Results WBC 13.8 k/uL (3.8-10.6) H 12/06/17 08:10 RBC 4.09 m/uL (4.30-5.90) L 12/06/17 08:10 Hgb 12.1 gm/dL (13.0-17.5) L 12/06/17 08:10 Hct 37.8 % (39.0-53.0) L 12/06/17 08:10 MCV 92.5 fL (80.0-100.0) 12/06/17 08:10 MCH 29.7 pg (25.0-35.0) 12/06/17 08:10 MCHC 32.1 g/dL (31.0-37.0) 12/06/17 08:10 RDW 12.7 % (11.5-15.5) 12/06/17 08:10 Plt Count 402 k/uL (150-450) 12/06/17 08:10 Neutrophils % 90 % 12/06/17 08:10 Lymphocytes % 3 % 12/06/17 08:10 Monocytes % 4 % 12/06/17 08:10 Eosinophils % 2 % 12/06/17 08:10 Basophils % 0 % 12/06/17 08:10 Neutrophils # 12.3 k/uL (1.3-7.7) H 12/06/17 08:10 Lymphocytes # 0.4 k/uL (1.0-4.8) L 12/06/17 08:10 Monocytes # 0.6 k/uL (0-1.0) 12/06/17 08:10 Eosinophils # 0.3 k/uL (0-0.7) 12/06/17 08:10 Basophils # 0.0 k/uL (0-0.2) 12/06/17 08:10 PT 11.2 sec (9.0-12.0) 12/06/17 08:10 INR 1.2 (<1.2) H 12/06/17 08:10 APTT 25.4 sec (22.0-30.0) 12/06/17 08:10 Sodium 137 mmol/L (137-145) 12/08/17 07:48 Potassium 3.5 mmol/L (3.5-5.1) 12/08/17 07:48 Chloride 102 mmol/L (98-107) 12/08/17 07:48 Carbon Dioxide 24 mmol/L (22-30) 12/08/17 07:48 Anion Gap 11 mmol/L 12/08/17 07:48 BUN 12 mg/dL (9-20) 12/08/17 07:48 Creatinine 0.69 mg/dL (0.66-1.25) 12/08/17 07:48 Est GFR (MDRD) Af Amer >60 (>60 ml/min/1.73 sqM) 12/08/17 07:48 Est GFR (MDRD) Non-Af >60 (>60 ml/min/1.73 sqM) 12/08/17 07:48 Glucose 190 mg/dL (74-99) H 12/08/17 07:48 POC Glucose (mg/dL) 179 mg/dL (75-99) H 12/08/17 21:12 POC Glu Medical Transcription Editor ROWDY Terra Gonzales 12/08/17 21:12 Plasma Lactic Acid Geo 1.6 mmol/L (0.7-2.0) 12/06/17 08:10 Calcium 8.5 mg/dL (8.4-10.2) 12/08/17 07:48 Magnesium 1.8 mg/dL (1.6-2.3) 12/06/17 08:10 Total Bilirubin 0.6 mg/dL (0.2-1.3) 12/06/17 08:10 AST 16 U/L (17-59) L 12/06/17 08:10 ALT 36 U/L (21-72) 12/06/17 08:10 Alkaline Phosphatase 61 U/L (38-126) 12/06/17 08:10 Total Creatine Kinase 32 U/L (55-170) L 12/06/17 08:10 CK-MB (CK-2) 1.2 ng/mL (0.0-2.4) 12/06/17 08:10 CK-MB (CK-2) Rel Index 3.8 12/06/17 08:10 Troponin I 0.013 ng/mL (0.000-0.034) 12/06/17 08:10 Total Protein 4.6 g/dL (6.3-8.2) L 12/06/17 08:10 Albumin 2.5 g/dL (3.5-5.0) L 12/06/17 08:10 Vancomycin Trough 13.2 ug/mL 12/08/17 07:48 Influenza Type A RNA Not Detected (Not Detectd) 12/06/17 12:15 Influenza Type B (PCR) Not Detected (Not Detectd) 12/06/17 12:15 Microbiology 12/06/17 08:10 Blood Blood Culture - Preliminary No Growth after 48 hours Assessment and Plan (1) COPD (chronic obstructive pulmonary disease) Narrative/Plan: Pleasant 72-year-old male presents to Hospital with severe pain to his left chest at the site of his recent surgical intervention which is a repair of the left diaphragmatic hernia and repair of the costochondral dislocation. Pain control is now much improved. Imaging studies continue to show evidence of some fluid and consolidation at the left base. It is time antibiotic therapy is indicated and given his recent hospitalization coverage with vancomycin and Zosyn is being utilized until we have further data. Would continue ongoing supportive care. Fortunately is feeling better at this point in time and cardiothoracic surgery is following with no plans for further intervention given his improvement. There is a mild leukocytosis that is being monitored. He is not having significant fevers or chills. He is working diligently with his incentive spirometer and receiving the breathing treatments. He did have an acute exacerbation of his COPD earlier today and that this started to improve at this time. Anxiolytics are also being given. Cultures are being monitored. Current Visit: Yes Status: Chronic Code(s): J44.9 - CHRONIC OBSTRUCTIVE PULMONARY DISEASE, UNSPECIFIED SNOMED Code(s): 99313630 (2) Pleural effusion Current Visit: Yes Status: Acute Code(s): J90 - PLEURAL EFFUSION, NOT ELSEWHERE CLASSIFIED SNOMED Code(s): 95700513 (3) Acute exacerbation of chronic obstructive airways disease Current Visit: No Status: Acute Code(s): J44.1 - CHRONIC OBSTRUCTIVE PULMONARY DISEASE W (ACUTE) EXACERBATION SNOMED Code(s): 127982561 (4) Mnire's disease Current Visit: No Status: Acute Code(s): H81.09 - MENIERE'S DISEASE, UNSPECIFIED EAR SNOMED Code(s): 67008228
[2017-12-09] MEDS: KETOROLAC 30 MG/ML 1 ML VIAL IVP PRN ×4 (00:05→18:52)
[2017-12-09] MEDS: HYDROcodone/APAP 10-325MG 1 EACH TAB PO PRN ×2 (03:22→23:16)
[2017-12-09] MEDS: PIPERACILLIN-TAZOBACTAM 3.375 GM in DEXTROSE/WATER 1 50ML.BAG IVPB SCH ×3 (03:24→18:37)
[2017-12-09 06:19] LABS: Glucose,Whole Blood 161 mg/dL (75-99)
[2017-12-09 06:21] LABS: Basophils % (A) 0 %; Eosinophils % (A) 0 %; HCT 40.5 % (39.0-53.0); HGB 12.1 gm/dL (13.0-17.5); Hypochromasia Slight; Lymphocytes # (A) 0.4 k/uL (1.0-4.8); Lymphocytes % (A) 3 %; MCH 28.8 pg (25.0-35.0); Mean Platelet Volume 6.7; Monocytes # (A) 0.5 k/uL (0-1.0); Monocytes % (A) 3 %; Neutrophils # (A) 13.6 k/uL (1.3-7.7); Neutrophils % (A) 93 %; Platelet Count 425 k/uL (150-450); RBC 4.21 m/uL (4.30-5.90); RDW 12.5 % (11.5-15.5); WBC 14.6 k/uL (3.8-10.6)
[2017-12-09 06:33] LABS: ALT 45 U/L (21-72); AST 35 U/L (17-59); Albumin 3.2 g/dL (3.5-5.0); Alkaline Phosphatase 75 U/L (38-126); Anion Gap 12 mmol/L; Blood Urea Nitrogen 14 mg/dL (9-20); Carbon Dioxide 24 mmol/L (22-30); Chloride 103 mmol/L (98-107); Glucose 170 mg/dL (74-99); Potassium 4.1 mmol/L (3.5-5.1); Sodium 139 mmol/L (137-145); Total Bilirubin 0.4 mg/dL (0.2-1.3); Total Protein 5.8 g/dL (6.3-8.2)
[2017-12-09] MEDS: PANTOPRAZOLE 40 MG TABLET PO SCH (07:01)
[2017-12-09] MEDS: INSULIN ASPART 100 UNIT/ML 1 ML 10 ML VIAL SQ SCH ×4 (07:02→21:35)
[2017-12-09] MEDS: LORATADINE 10 MG TAB PO SCH (07:40)
[2017-12-09] MEDS: INDAPAMIDE 1.25 MG TAB PO SCH (07:40)
[2017-12-09] MEDS: MECLIZINE 25 MG TAB PO SCH (07:41)
[2017-12-09] MEDS: methylPREDNISolone SOD SUCCI 40 MG/ML 1 ML VIAL IV SCH ×2 (07:41→21:35)
[2017-12-09] MEDS: BENZONATATE 100 MG CAP PO SCH ×3 (07:41→21:34)
[2017-12-09] MEDS: LISINOPRIL 10 MG TAB PO SCH (07:41)
[2017-12-09] MEDS: VANCOMYCIN 2,000 MG in SODIUM CHLORIDE 0.9% 500 ML IVPB SCH ×2 (07:46→22:46)
--- NOTE | 2017-12-09 08:07 | P.PN ---
Subjective Progress Note Date: 12/09/17 Principal diagnosis: Bilateral basal pneumonia, left-sided thoracic wall and chest pain, acute COPD exacerbation, purulent tracheobronchitis, left-sided loculated small pleural effusion, recent left diaphragmatic perforation with herniation abdominal content, with costochondral fracture dislocation status post repair of both 12/09/2017, patient seen and evaluated examined during the rounds today he is doing slightly better able to get some sleep wheezing has improved he appears to have responded better with the IV Solu-Medrol to times a day and continuation of antibiotics, patient has been evaluated by infectious disease services input reviewed and appreciated care plan discussed with the patient and present bedside at length also discussed with nursing staff as well be a hoping that we'll DC the IV Toradol to by mouth in next 24-48 hours 12/08/2017, patient seen and evaluated examined during the rounds patient has a acute onset episode of severe anxiety and apprehension and shortness of breath and wheezing earlier this morning x-ray was performed which is reviewed, patient has severe bronchospasm and chest tightness was given emergent breathing treatments and 1 mg of Dilaudid as well as interventions were extremely helpful is severe due to pain is much better under control but is still short of breath bilateral audible wheezing is present. Patient's pain however is better under control otherwise with 3 medications including tramadol , Toradol, Horton and as needed Dilaudid but however they are intermittent and reports of apnea which is transient though would recommend to DC the tramadol and use Toradol and Horton as needed and Dilaudid for severe pain, will continue the Tessalon Perles to avoid excessive coughing, in addition to above I'm going to increase Solu-Medrol to every 12, add Perforomist, use DuoNeb 4 times a day [id number], this detailed discussion occurred with the and patient time spent over 35 minutes, chest x-ray performed today reviewed as well in fact some improved aviation in the left base has been noted, will obtain infectious disease consultation as well to guide us about extended length of antibiotic therapy labs have been ordered as well 12/07/2017, patient seen and evaluated examined during the rounds, severity of left-sided chest wall pain is better but however patient has been noted by intermittent apneic events this detailed discussion with the patient advised to lower down the amount of pain medications, would continue antibiotics breathing treatments appreciate input from surgical services Patient admitted on 12/06/2017 with chief complaint of Shortness of breath and severe degree of chest pain on the left side Patient seen and evaluated examined in the ER as well as on 6 floor, This is a 72-year-old gentleman who is followed by Dr. Quinton Gary on an outpatient basis. His past medical history significant for chronic obstructive pulmonary disease, previous tobacco dependence, hypertension hyperlipidemia, prostate disorder, Mnire's disease, and hearing disorder. presented to the emergency department today via EMS with uncontrolled postoperative pain to his left chest. Patient had the recent acute COPD exacerbation in September 2017 was subsequently discharged and then readmitted in October with severe excruciating left-sided chest wall pain found to have the left diaphragmatic hernia On 2017 the patient underwent a successful left thoracotomy closure of a diaphragmatic hernia with patch and repair of the costochondral dislocation and subsequent lung herniation. He was discharged home 11/26/2017 and presented back to the [facility] emergency department on 11/30/2017 with complaints of postoperative left chest wall pain and progressive progressive shortness of breath. He reports that his pain is a stabbing pain to his left lower abdomen all the way up to his left shoulder. Patient at that time was treated with the IV antibiotics and CAT scan revealed strandy infiltrate at both bases along with alveolitis-like Petrin bilaterally Currently He also reports that he has some shortness of breath and a persistent dry cough. He states that he has not been unable to use his incentive spirometry consistently at home due to the pain with deep breathing. He denies any complaints of nausea, vomiting, diarrhea, fever, or chills. Lab work showed a WBC count of 13.8, Hgb count of 12.1, BUN 18, creatinine 0.90. On presentation to the emergency department he had a low-grade fever of 100.3F, heart rate 75, blood pressure 89/53. A chest x-ray was completed which showed mild cardiomegaly, chronic emphysematous change with left greater than right bibasilar atelectasis and/or infiltrate with small left pleural fluid collection. A follow-up CT scan of his chest was completed which demonstrated fluid extending from a left pleural effusion between posterior lateral left ribs 8 and 9 into the subcutaneous tissue. Objective - Vital Signs Vital signs: Vital Signs Temp 97.1 F L 12/09/17 07:41 Pulse 87 12/09/17 07:41 Resp 18 12/09/17 07:41 BP 159/76 12/09/17 07:41 Pulse Ox 93 L 12/09/17 07:41 Intake & Output 12/08/17 12/09/17 12/09/17 18:59 06:59 18:59 Intake Total 840 Output Total 800 Balance 40 Weight 88.9 kg Intake: Intake, IV Titration 300 Amount Piperacillin-Tazobactam 3 50 .375 gm In Dextrose/Water 1 50ml.bag @ 12.5 mls/hr IVPB Q8H [facility] Rx#: [id number] Vancomycin 1,750 mg In 250 Sodium Chloride 0.9% 250 ml @ 125 mls/hr IVPB Q12H [facility] Rx#:[id number] Oral 540 Output: Urine 800 Other: Voiding Method Toilet Toilet # Voids 2 - Exam General well developed, well nourished, no distress, moderate pain (Currently rates his pain 8 or 9 out of 10 on the pain scale 2 his left chest incision site.) - Eyes PERRL, normal ocular movement - ENT normal pinna, normal nares, normal mucosa, no congestion, decreased hearing - Neck No lymphadenopathy, neck supple. no masses, no bruits, trachea midline, no venous distension - Respiratory Lung sounds essentially clear to his bilateral upper lobes, few scattered crackles to his bilateral bases left greater than right. Respirations are symmetrical and nonlabored. Oxygen saturation is 95% on 2 L nasal cannula, bilateral inspiratory expiratory wheezing are present, chest wall is nontender at surgical sites which appears to be healing very well - Cardiovascular Regular rhythm and rate. S1 and S2 present, negative for S3, gallop or murmur. Bedside telemetry showing normal sinus rhythm heart rate 83. +1 to +2 pedal edema bilaterally. Peripheral pulses palpable. - Abdomen Abdomen is soft, nontender and nondistended. Active bowel sounds all 4 abdominal quadrants. Passing flatus. No organomegaly, no guarding or rigidity. - Genitourinary Adequate urine output. Voiding clear gianni urine. - Integumentary Left thoracotomy incision site clean dry and well approximated. Slight swelling surrounding the thoracotomy incision. No drainage or redness. Skin warm and dry to touch. No clubbing or cyanosis. no rash, no growths, no abnormal pigmentation - Neurologic normal coordination, normal sensation - Musculoskeletal normal gait, normal posture - Psychiatric oriented to time, oriented to person, oriented to place, speech is normal, memory intact - Labs CBC & Chem 7: 12/09/17 05:36 12/09/17 05:36 Labs: Abnormal Lab Results - Last 24 Hours (Table) 12/08/17 12/08/17 12/08/17 Range/Units 07:48 17:20 21:12 WBC (3.8-10.6) k/uL RBC (4.30-5.90) m/uL Hgb (13.0-17.5) gm/dL MCHC (31.0-37.0) g/dL Neutrophils # (1.3-7.7) k/uL Lymphocytes # (1.0-4.8) k/uL Glucose 190 H (74-99) mg/dL POC Glucose (mg/dL) 138 H 179 H (75-99) mg/dL Total Protein (6.3-8.2) g/dL Albumin (3.5-5.0) g/dL 12/09/17 12/09/17 12/09/17 Range/Units 05:36 05:36 06:15 WBC 14.6 H (3.8-10.6) k/uL RBC 4.21 L (4.30-5.90) m/uL Hgb 12.1 L (13.0-17.5) gm/dL MCHC 30.0 L (31.0-37.0) g/dL Neutrophils # 13.6 H (1.3-7.7) k/uL Lymphocytes # 0.4 L (1.0-4.8) k/uL Glucose 170 H (74-99) mg/dL POC Glucose (mg/dL) 161 H (75-99) mg/dL Total Protein 5.8 L (6.3-8.2) g/dL Albumin 3.2 L (3.5-5.0) g/dL Microbiology - Last 24 Hours (Table) 12/06/17 08:10 Blood Culture - Preliminary Blood No Growth after 48 hours Assessment and Plan Assessment: Ongoing sepsis along with left-sided pneumonia and left pleural effusion, right basal pneumonia cannot be excluded Patient is at high risk of developing complicated pneumonia given recent left diaphragmatic perforation with costochondral dislocation and fracture and postoperative status Left-sided small loculated pleural effusion Intractable postoperative chest wall pain Severe COPD emphysema, with acute COPD exacerbation Left diaphragmatic herniation status post repair with mesh Left-sided costal chondral fracture and dislocation with lung herniation status post repair done along with the left diaphragmatic hernia repair with mesh Dyslipidemia hypertension hypertensive cardiovascular disease Plan: Pain control, as noted above Gentle rehydration Broad-spectrum antibiotics for bilateral pneumonia, ID consult Repeat radiographic studies reviewed will follow obtain another chest x-ray next 24-48 hours Continue deep breathing exercises incentive spirometry DVT prophylaxis and peptic ulcer disease prophylaxis If pain is persistent and non-resolving consider anesthesia for pain management Labs have been ordered Respiratory therapy has been adjusted Time with Patient: Greater than 30
[2017-12-09] MEDS: BUDESONIDE 0.5 MG/2 ML NEBU INHALATION SCH ×2 (08:28→22:00)
[2017-12-09] MEDS: FORMOTEROL FUMARATE 20 MCG/2 ML NEBU INHALATION SCH ×2 (08:28→22:01)
[2017-12-09] MEDS: IPRATROPIUM-ALBUTEROL 3 ML NEB INHALATION SCH ×4 (08:28→22:02)
[2017-12-09] MEDS: BENZOCAINE/MENTHOL LOZENG 1 EACH LOZENGE MUCOUS MEM PRN ×2 (10:43→23:18)
[2017-12-09 11:47] LABS: Glucose,Whole Blood 120 mg/dL (75-99)
[2017-12-09 17:14] LABS: Glucose,Whole Blood 116 mg/dL (75-99)
[2017-12-09] MEDS: ALPRAZolam 0.25 MG TAB PO PRN (18:52)
--- NOTE | 2017-12-09 20:08 | P.PN ---
Subjective Progress Note Date: 12/09/17 Principal diagnosis: Left pleural effusion Pleasant 72-year-old male presents to Hospital for significant and ongoing pain. This pleasant gentleman relates that in early October he was having significant difficulty with severe cough related to COPD and underlying infection. His related that he coughed so hard he caused a costochondral dislocation as well as a left diaphragmatic rupture with herniation. He was evaluated by Dr. Avila to cardiothoracic surgery was taken to the operating room where a thoracotomy was performed for appear of the diaphragm with mesh as well as repair of the costochondral dislocation. Postoperatively the patient was doing relatively well and was sent home on 11/26/2017. In home setting was doing relatively well. Over significant difficulties was more cough his pain became uncontrolled presented back to the emergency center where he is been admitted. Imaging studies showed evidence of some fluid in the region and there is concern for underlying infection the patient also had a low-grade fever and with that the infectious disease consultation was requested. Patient currently is denying high-grade fevers chills or rigors or sweats. His pain is much better controlled. 12/09/2017 the patient continues to show marked improvement. Current regiment is allowed significant improvement of his pain. The patient's is present. She has concerned in that the patient goes home his pain becomes uncontrolled resulting in coming back to hospital. She would like this to not happen again. Objective - Vital Signs Vital signs: Vital Signs Temp 97 F L 12/09/17 15:30 Pulse 96 12/09/17 17:00 Resp 18 12/09/17 15:30 BP 136/68 12/09/17 15:30 Pulse Ox 91 L 12/09/17 15:30 Intake & Output 12/09/17 12/09/17 12/10/17 06:59 18:59 06:59 Intake Total 1260 Balance 1260 Weight 88.9 kg Intake: Intake, IV Titration 500 Amount Vancomycin 2,000 mg In 500 Sodium Chloride 0.9% 500 ml @ 166.667 mls/hr IVPB Q12H [facility] Rx#:[id number] Oral 760 Other: Voiding Method Toilet Toilet # Voids 2 - Exam Pleasant 72-year-old gentleman who relates he is much more comfortable than at admission. HEENT: Anicteric conjunctiva are pink and moist nasal mucosa grossly intact without significant lesions, there is no thrush. Neck: The neck is supple without significant lymphadenopathy or thyromegaly. Lungs: They're symmetrical air entry there are crackles at the left base but no britney bronchial sounds no dullness or egophony. Is able to take good deep breaths with only minimal discomfort and does not have significant coughing with a deep breath. Heart: Irregular with an audible S1 and S2 without S4. There is no significant murmur click or rub, PMI was nondisplaced. Abdomen: Positive bowel sounds soft and nontender without palpable masses or organomegaly. There was no guarding or rebound. Extremities: The upper extremities have excellent pulses they are symmetric, no significant petechiae or telangiectasia. No splinter hemorrhages were noted. The lower extremities are free from significant edema. The peripheral pulses were 2+ and symmetric. Neuro: Awake alert oriented to person place and time. There are no acute new gross focal sensory motor deficits. Surgical wound to the left chest in the thoracotomy position is healing well without erythema crepitance or fluctuance. - Labs CBC & Chem 7: 12/09/17 05:36 12/09/17 05:36 Labs: Abnormal Lab Results - Last 24 Hours (Table) 12/08/17 12/09/17 12/09/17 Range/Units 21:12 05:36 05:36 WBC 14.6 H (3.8-10.6) k/uL RBC 4.21 L (4.30-5.90) m/uL Hgb 12.1 L (13.0-17.5) gm/dL MCHC 30.0 L (31.0-37.0) g/dL Neutrophils # 13.6 H (1.3-7.7) k/uL Lymphocytes # 0.4 L (1.0-4.8) k/uL Glucose 170 H (74-99) mg/dL POC Glucose (mg/dL) 179 H (75-99) mg/dL Total Protein 5.8 L (6.3-8.2) g/dL Albumin 3.2 L (3.5-5.0) g/dL 12/09/17 12/09/17 12/09/17 Range/Units 06:15 11:32 16:52 WBC (3.8-10.6) k/uL RBC (4.30-5.90) m/uL Hgb (13.0-17.5) gm/dL MCHC (31.0-37.0) g/dL Neutrophils # (1.3-7.7) k/uL Lymphocytes # (1.0-4.8) k/uL Glucose (74-99) mg/dL POC Glucose (mg/dL) 161 H 120 H 116 H (75-99) mg/dL Total Protein (6.3-8.2) g/dL Albumin (3.5-5.0) g/dL Microbiology - Last 24 Hours (Table) 12/06/17 08:10 Blood Culture - Preliminary Blood No Growth after 72 hours Laboratory Results WBC 14.6 k/uL (3.8-10.6) H 12/09/17 05:36 RBC 4.21 m/uL (4.30-5.90) L 12/09/17 05:36 Hgb 12.1 gm/dL (13.0-17.5) L 12/09/17 05:36 Hct 40.5 % (39.0-53.0) 12/09/17 05:36 MCV 96.0 fL (80.0-100.0) 12/09/17 05:36 MCH 28.8 pg (25.0-35.0) 12/09/17 05:36 MCHC 30.0 g/dL (31.0-37.0) L 12/09/17 05:36 RDW 12.5 % (11.5-15.5) 12/09/17 05:36 Plt Count 425 k/uL (150-450) 12/09/17 05:36 Neutrophils % 93 % 12/09/17 05:36 Lymphocytes % 3 % 12/09/17 05:36 Monocytes % 3 % 12/09/17 05:36 Eosinophils % 0 % 12/09/17 05:36 Basophils % 0 % 12/09/17 05:36 Neutrophils # 13.6 k/uL (1.3-7.7) H 12/09/17 05:36 Lymphocytes # 0.4 k/uL (1.0-4.8) L 12/09/17 05:36 Monocytes # 0.5 k/uL (0-1.0) 12/09/17 05:36 Eosinophils # 0.0 k/uL (0-0.7) 12/09/17 05:36 Basophils # 0.0 k/uL (0-0.2) 12/09/17 05:36 Hypochromasia Slight 12/09/17 05:36 PT 11.2 sec (9.0-12.0) 12/06/17 08:10 INR 1.2 (<1.2) H 12/06/17 08:10 APTT 25.4 sec (22.0-30.0) 12/06/17 08:10 Sodium 139 mmol/L (137-145) 12/09/17 05:36 Potassium 4.1 mmol/L (3.5-5.1) 12/09/17 05:36 Chloride 103 mmol/L (98-107) 12/09/17 05:36 Carbon Dioxide 24 mmol/L (22-30) 12/09/17 05:36 Anion Gap 12 mmol/L 12/09/17 05:36 BUN 14 mg/dL (9-20) 12/09/17 05:36 Creatinine 0.78 mg/dL (0.66-1.25) 12/09/17 05:36 Est GFR (MDRD) Af Amer >60 (>60 ml/min/1.73 sqM) 12/09/17 05:36 Est GFR (MDRD) Non-Af >60 (>60 ml/min/1.73 sqM) 12/09/17 05:36 Glucose 170 mg/dL (74-99) H 12/09/17 05:36 POC Glucose (mg/dL) 116 mg/dL (75-99) H 12/09/17 16:52 POC Glu Physician Executive ID Seda Padilla 12/09/17 16:[address] Glu mg/dL 123 12/08/17 07:48 Hemoglobin A1c 5.9 % (4.0-6.0) 12/08/17 07:48 Plasma Lactic Acid Geo 1.6 mmol/L (0.7-2.0) 12/06/17 08:10 Calcium 9.0 mg/dL (8.4-10.2) 12/09/17 05:36 Magnesium 1.8 mg/dL (1.6-2.3) 12/06/17 08:10 Total Bilirubin 0.4 mg/dL (0.2-1.3) 12/09/17 05:36 AST 35 U/L (17-59) 12/09/17 05:36 ALT 45 U/L (21-72) 12/09/17 05:36 Alkaline Phosphatase 75 U/L (38-126) 12/09/17 05:36 Total Creatine Kinase 32 U/L (55-170) L 12/06/17 08:10 CK-MB (CK-2) 1.2 ng/mL (0.0-2.4) 12/06/17 08:10 CK-MB (CK-2) Rel Index 3.8 12/06/17 08:10 Troponin I 0.013 ng/mL (0.000-0.034) 12/06/17 08:10 Total Protein 5.8 g/dL (6.3-8.2) L 12/09/17 05:36 Albumin 3.2 g/dL (3.5-5.0) L 12/09/17 05:36 Vancomycin Trough 13.2 ug/mL 12/08/17 07:48 Influenza Type A RNA Not Detected (Not Detectd) 12/06/17 12:15 Influenza Type B (PCR) Not Detected (Not Detectd) 12/06/17 12:15 Microbiology 12/06/17 08:10 Blood Blood Culture - Preliminary No Growth after 72 hours Assessment and Plan (1) COPD (chronic obstructive pulmonary disease) Narrative/Plan: Pleasant 72-year-old male presents to Hospital with severe pain to his left chest at the site of his recent surgical intervention which is a repair of the left diaphragmatic hernia and repair of the costochondral dislocation. Pain control is now much improved. Imaging studies continue to show evidence of some fluid and consolidation at the left base. It is time antibiotic therapy is indicated and given his recent hospitalization coverage with vancomycin and Zosyn is being utilized until we have further data. Would continue ongoing supportive care. Fortunately is feeling better at this point in time and cardiothoracic surgery is following with no plans for further intervention given his improvement. There is a mild leukocytosis that is being monitored. He is not having significant fevers or chills. He is working diligently with his incentive spirometer and receiving the breathing treatments. He did have an acute exacerbation of his COPD yesterday and it is now resolved. Anxiolytics are also being given. Cultures are being monitored. The computed tomography scan was again reviewed showing evidence of a fluid collection but no britney infiltrate. Cardiothoracic surgery is following with no plans for surgical intervention at this time. As he recovers we'll transition to oral antibiotic therapy at his discharge. The patient's is clearly instructed that his pain control discharge is up to his primary care physician, and they have commented on possibly seeing a pain specialist. Anesthesia could be contacted for a nerve block if needed. Current Visit: Yes Status: Chronic Code(s): J44.9 - CHRONIC OBSTRUCTIVE PULMONARY DISEASE, UNSPECIFIED SNOMED Code(s): 33111300 (2) Pleural effusion Current Visit: Yes Status: Acute Code(s): J90 - PLEURAL EFFUSION, NOT ELSEWHERE CLASSIFIED SNOMED Code(s): 44817954 (3) Acute exacerbation of chronic obstructive airways disease Current Visit: No Status: Acute Code(s): J44.1 - CHRONIC OBSTRUCTIVE PULMONARY DISEASE W (ACUTE) EXACERBATION SNOMED Code(s): 164070925 (4) Mnire's disease Current Visit: No Status: Acute Code(s): H81.09 - MENIERE'S DISEASE, UNSPECIFIED EAR SNOMED Code(s): 64770937
[2017-12-09 21:14] LABS: Glucose,Whole Blood 127 mg/dL (75-99)
[2017-12-09] MEDS: MONTELUKAST 10 MG TAB PO SCH (21:34)
[2017-12-09] MEDS: ATORVASTATIN 10 MG TAB PO SCH (21:34)
[2017-12-09] MEDS: TAMSULOSIN 0.4 MG CAP.ER.24H PO SCH (21:34)
[2017-12-09] MEDS: LORazepam 0.5 MG TAB PO SCH (21:35)
[2017-12-09] MEDS: FINASTERIDE 5 MG TAB PO SCH (21:35)
[2017-12-09] MEDS ORDERED: HYDROmorphone 4 MG TABLET PO PRN (23:41)
[2017-12-10] MEDS: PIPERACILLIN-TAZOBACTAM 3.375 GM in DEXTROSE/WATER 1 50ML.BAG IVPB SCH ×3 (03:31→21:11)
[2017-12-10 06:07] LABS: Glucose,Whole Blood 116 mg/dL (75-99)
[2017-12-10 06:19] LABS: Basophils % (A) 0 %; Eosinophils % (A) 0 %; HGB 11.2 gm/dL (13.0-17.5); Lymphocytes # (A) 0.5 k/uL (1.0-4.8); Lymphocytes % (A) 4 %; MCH 28.8 pg (25.0-35.0); MCHC 30.3 g/dL (31.0-37.0); Mean Platelet Volume 6.4; Monocytes # (A) 0.6 k/uL (0-1.0); Monocytes % (A) 4 %; Neutrophils # (A) 12.7 k/uL (1.3-7.7); Neutrophils % (A) 91 %; Platelet Count 377 k/uL (150-450); RDW 12.7 % (11.5-15.5)
[2017-12-10 06:35] LABS: ALT 45 U/L (21-72); AST 32 U/L (17-59); Albumin 2.9 g/dL (3.5-5.0); Alkaline Phosphatase 59 U/L (38-126); Anion Gap 12 mmol/L; Blood Urea Nitrogen 14 mg/dL (9-20); Calcium 8.6 mg/dL (8.4-10.2); Carbon Dioxide 25 mmol/L (22-30); Chloride 102 mmol/L (98-107); Glucose 122 mg/dL (74-99); Potassium 3.8 mmol/L (3.5-5.1); Sodium 139 mmol/L (137-145); Total Bilirubin 0.5 mg/dL (0.2-1.3); Total Protein 5.5 g/dL (6.3-8.2)
[2017-12-10] MEDS: PANTOPRAZOLE 40 MG TABLET PO SCH (06:48)
[2017-12-10] MEDS: INSULIN ASPART 100 UNIT/ML 1 ML 10 ML VIAL SQ SCH ×4 (06:49→21:17)
[2017-12-10] MEDS: BUDESONIDE 0.5 MG/2 ML NEBU INHALATION SCH ×2 (06:58→19:58)
[2017-12-10] MEDS: FORMOTEROL FUMARATE 20 MCG/2 ML NEBU INHALATION SCH ×2 (06:59→19:59)
[2017-12-10] MEDS: IPRATROPIUM-ALBUTEROL 3 ML NEB INHALATION SCH ×4 (06:59→19:58)
[2017-12-10] MEDS ORDERED: VANCOMYCIN TROUGH DUE 1 EACH MISC MISCELLANE ONE (08:00)
[2017-12-10] MEDS: HYDROcodone/APAP 10-325MG 1 EACH TAB PO PRN ×3 (08:38→21:11)
[2017-12-10] MEDS: ALPRAZolam 0.25 MG TAB PO PRN (08:38)
[2017-12-10] MEDS: BENZONATATE 100 MG CAP PO SCH ×3 (08:39→21:17)
[2017-12-10] MEDS: LISINOPRIL 10 MG TAB PO SCH (08:40)
[2017-12-10] MEDS: MECLIZINE 25 MG TAB PO SCH (08:40)
[2017-12-10] MEDS: INDAPAMIDE 1.25 MG TAB PO SCH (08:40)
[2017-12-10] MEDS: LORATADINE 10 MG TAB PO SCH (08:40)
[2017-12-10] MEDS: methylPREDNISolone SOD SUCCI 40 MG/ML 1 ML VIAL IV SCH (08:40)
[2017-12-10] MEDS: VANCOMYCIN 2,000 MG in SODIUM CHLORIDE 0.9% 500 ML IVPB SCH ×2 (09:00→23:56)
--- NOTE | 2017-12-10 09:32 | P.PN ---
Subjective Progress Note Date: 12/10/17 Principal diagnosis: Ongoing postoperative left sided chest pain. Previous medical history of COPD, previous tobacco dependence, hypertension, hyperlipidemia, prostate disorder, hearing disorder. Status post left thoracotomy closure of diaphragmatic hernia with patch, repair of costochondral dislocation and subsequent lung herniation, completed 11/22/2017. Patient's currently sitting up in bed in no acute distress. States pain is mostly controlled. Does have occasional bronchospastic attacks. States he is feeling a little better every day. Patient has been up ambulating in the room and in the hallway. Objective - Vital Signs Vital signs: Vital Signs Temp 97.4 F L 12/10/17 00:00 Pulse 88 12/10/17 07:20 Resp 24 12/10/17 03:57 BP 165/87 12/10/17 00:00 Pulse Ox 94 L 12/10/17 06:59 Intake & Output 12/09/17 12/10/17 12/10/17 18:59 06:59 18:59 Intake Total 1260 100 120 Balance 1260 100 120 Weight 88.9 kg Intake: IV 100 Invasive Line 2 100 Intake, IV Titration 500 Amount Vancomycin 2,000 mg In 500 Sodium Chloride 0.9% 500 ml @ 166.667 mls/hr IVPB Q12H [facility] Rx#:[id number] Oral 760 120 Other: Voiding Method Toilet Toilet - Constitutional General appearance: Present: cooperative, no acute distress - Respiratory Details: Lungs sounds diminished bilaterally with faint coarse breath sounds in the left base. Currently on room air with oxygen saturation 94%. Able to achieve 1000- 1250 milliliters on his incentive spirometry. - Cardiovascular Details: S1, S2 present. Regular rate and rhythm, sinus rhythm with occasional PVCs on telemetry. Palpable peripheral pulses bilaterally. No edema present. No calf pain or tenderness noted. - Gastrointestinal Gastrointestinal Comment(s): Abdomen soft, nontender, nondistended. Active bowel sounds 4 quadrants. Tolerating diet. - Genitourinary Genitourinary Comment(s): Continues to void clear, yellow urine. - Integumentary Integumentary Comment(s): Skin is warm and dry. Left lateral chest incision well approximated. - Neurologic Neurologic: Present: CNII-XII intact - Musculoskeletal Musculoskeletal: Present: gait normal, strength equal bilaterally - Psychiatric Psychiatric: Present: A&O x's 3, appropriate affect, intact judgment & insight - Allied health notes Allied health notes reviewed: nursing - Labs CBC & Chem 7: 12/10/17 05:39 12/10/17 05:39 Labs: Abnormal Lab Results - Last 24 Hours (Table) 12/09/17 12/09/17 12/09/17 Range/Units 11:32 16:52 21:13 WBC (3.8-10.6) k/uL RBC (4.30-5.90) m/uL Hgb (13.0-17.5) gm/dL Hct (39.0-53.0) % MCHC (31.0-37.0) g/dL Neutrophils # (1.3-7.7) k/uL Lymphocytes # (1.0-4.8) k/uL Glucose (74-99) mg/dL POC Glucose (mg/dL) 120 H 116 H 127 H (75-99) mg/dL Total Protein (6.3-8.2) g/dL Albumin (3.5-5.0) g/dL 12/10/17 12/10/17 12/10/17 Range/Units 05:39 05:39 06:05 WBC 14.0 H (3.8-10.6) k/uL RBC 3.90 L (4.30-5.90) m/uL Hgb 11.2 L (13.0-17.5) gm/dL Hct 37.0 L (39.0-53.0) % MCHC 30.3 L (31.0-37.0) g/dL Neutrophils # 12.7 H (1.3-7.7) k/uL Lymphocytes # 0.5 L (1.0-4.8) k/uL Glucose 122 H (74-99) mg/dL POC Glucose (mg/dL) 116 H (75-99) mg/dL Total Protein 5.5 L (6.3-8.2) g/dL Albumin 2.9 L (3.5-5.0) g/dL Microbiology - Last 24 Hours (Table) 12/06/17 08:10 Blood Culture - Preliminary Blood No Growth after 72 hours Assessment and Plan (1) Hard of hearing Current Visit: Yes Status: Chronic Code(s): H91.90 - UNSPECIFIED HEARING LOSS, UNSPECIFIED EAR SNOMED Code(s): 90766468 (2) Pleural effusion Current Visit: Yes Status: Acute Code(s): J90 - PLEURAL EFFUSION, NOT ELSEWHERE CLASSIFIED SNOMED Code(s): 62721191 (3) Postoperative pain Current Visit: Yes Status: Chronic Code(s): G89.18 - OTHER ACUTE POSTPROCEDURAL PAIN SNOMED Code(s): 379825945 (4) COPD (chronic obstructive pulmonary disease) Current Visit: Yes Status: Chronic Code(s): J44.9 - CHRONIC OBSTRUCTIVE PULMONARY DISEASE, UNSPECIFIED SNOMED Code(s): 10755430 (5) History of hernia repair Current Visit: No Status: Chronic Code(s): Z98.890 - OTHER SPECIFIED POSTPROCEDURAL STATES; Z87.19 - PERSONAL HISTORY OF OTHER DISEASES OF THE DIGESTIVE SYSTEM SNOMED Code(s): 24094802476697 (6) Hyperlipidemia Current Visit: Yes Status: Chronic Code(s): E78.5 - HYPERLIPIDEMIA, UNSPECIFIED SNOMED Code(s): 48433931 (7) Hypertension Current Visit: Yes Status: Chronic Code(s): I10 - ESSENTIAL (PRIMARY) HYPERTENSION SNOMED Code(s): 68830837 (8) Prostate disorder Current Visit: Yes Status: Chronic Code(s): N42.9 - DISORDER OF PROSTATE, UNSPECIFIED SNOMED Code(s): 36446113 Plan: 1. Encourage continued incentive spirometry use. Encourage controlled coughing. 2. Pain management, steroids, antibiotics per primary care/pulmonology services. 3. DVT/GI prophylaxis. 4. Increase activity, ambulate as able. 5. No surgical intervention necessary. 6. Medical management per Dr. Moss. 7. Will continue to see as needed. Time with Patient: Less than 30
[2017-12-10 11:52] LABS: Glucose,Whole Blood 93 mg/dL (75-99)
[2017-12-10 17:26] LABS: Glucose,Whole Blood 170 mg/dL (75-99)
--- NOTE | 2017-12-10 20:22 | P.PN ---
Subjective Progress Note Date: 12/10/17 Principal diagnosis: Bilateral basal pneumonia, left-sided thoracic wall and chest pain, acute COPD exacerbation, purulent tracheobronchitis, left-sided loculated small pleural effusion, recent left diaphragmatic perforation with herniation abdominal content, with costochondral fracture dislocation status post repair of both 12/10/2017, patient seen and evaluated examined during the rounds from respiratory standpoint shortness of breath and wheezing are there but severity has improved severity or chest pain is slightly better as well he does not require any more IV medications but he is getting oral pills fairly regularly, he is off of IV Dilaudid also off of Ultram as well as Toradol, he is tolerating Xanax 3 times a day fairly well along with half a milligram of Ativan at bedtime, severe D anxiety and a prehension is improved able to ambulate 12/09/2017, patient seen and evaluated examined during the rounds today he is doing slightly better able to get some sleep wheezing has improved he appears to have responded better with the IV Solu-Medrol to times a day and continuation of antibiotics, patient has been evaluated by infectious disease services input reviewed and appreciated care plan discussed with the patient and present bedside at length also discussed with nursing staff as well be a hoping that we'll DC the IV Toradol to by mouth in next 24-48 hours 12/08/2017, patient seen and evaluated examined during the rounds patient has a acute onset episode of severe anxiety and apprehension and shortness of breath and wheezing earlier this morning x-ray was performed which is reviewed, patient has severe bronchospasm and chest tightness was given emergent breathing treatments and 1 mg of Dilaudid as well as interventions were extremely helpful is severe due to pain is much better under control but is still short of breath bilateral audible wheezing is present. Patient's pain however is better under control otherwise with 3 medications including tramadol , Toradol, Boaz and as needed Dilaudid but however they are intermittent and reports of apnea which is transient though would recommend to DC the tramadol and use Toradol and Boaz as needed and Dilaudid for severe pain, will continue the Tessalon Perles to avoid excessive coughing, in addition to above I'm going to increase Solu-Medrol to every 12, add Perforomist, use DuoNeb 4 times a day [id number], this detailed discussion occurred with the and patient time spent over 35 minutes, chest x-ray performed today reviewed as well in fact some improved aviation in the left base has been noted, will obtain infectious disease consultation as well to guide us about extended length of antibiotic therapy labs have been ordered as well 12/07/2017, patient seen and evaluated examined during the rounds, severity of left-sided chest wall pain is better but however patient has been noted by intermittent apneic events this detailed discussion with the patient advised to lower down the amount of pain medications, would continue antibiotics breathing treatments appreciate input from surgical services Patient admitted on 12/06/2017 with chief complaint of Shortness of breath and severe degree of chest pain on the left side Patient seen and evaluated examined in the ER as well as on 6 floor, This is a 72-year-old gentleman who is followed by Dr. Quinton Gary on an outpatient basis. His past medical history significant for chronic obstructive pulmonary disease, previous tobacco dependence, hypertension hyperlipidemia, prostate disorder, Mnire's disease, and hearing disorder. presented to the emergency department today via EMS with uncontrolled postoperative pain to his left chest. Patient had the recent acute COPD exacerbation in September 2017 was subsequently discharged and then readmitted in October with severe excruciating left-sided chest wall pain found to have the left diaphragmatic hernia On 2017 the patient underwent a successful left thoracotomy closure of a diaphragmatic hernia with patch and repair of the costochondral dislocation and subsequent lung herniation. He was discharged home 11/26/2017 and presented back to the [facility] emergency department on 11/30/2017 with complaints of postoperative left chest wall pain and progressive progressive shortness of breath. He reports that his pain is a stabbing pain to his left lower abdomen all the way up to his left shoulder. Patient at that time was treated with the IV antibiotics and CAT scan revealed strandy infiltrate at both bases along with alveolitis-like Petrin bilaterally Currently He also reports that he has some shortness of breath and a persistent dry cough. He states that he has not been unable to use his incentive spirometry consistently at home due to the pain with deep breathing. He denies any complaints of nausea, vomiting, diarrhea, fever, or chills. Lab work showed a WBC count of 13.8, Hgb count of 12.1, BUN 18, creatinine 0.90. On presentation to the emergency department he had a low-grade fever of 100.3F, heart rate 75, blood pressure 89/53. A chest x-ray was completed which showed mild cardiomegaly, chronic emphysematous change with left greater than right bibasilar atelectasis and/or infiltrate with small left pleural fluid collection. A follow-up CT scan of his chest was completed which demonstrated fluid extending from a left pleural effusion between posterior lateral left ribs 8 and 9 into the subcutaneous tissue. Objective - Vital Signs Vital signs: Vital Signs Temp 97.1 F L 12/10/17 15:11 Pulse 104 H 12/10/17 20:13 Resp 18 12/10/17 15:11 BP 124/80 12/10/17 15:11 Pulse Ox 94 L 12/10/17 15:22 Intake & Output 12/10/17 12/10/17 12/11/17 06:59 18:59 06:59 Intake Total 100 600 Balance 100 600 Weight 88.9 kg Intake: IV 100 Invasive Line 2 100 Oral 600 Other: Voiding Method Toilet Toilet # Voids 1 # Bowel Movements 0 - Exam General well developed, well nourished, no distress, moderate pain (Currently rates his pain 8 or 9 out of 10 on the pain scale 2 his left chest incision site.) - Eyes PERRL, normal ocular movement - ENT normal pinna, normal nares, normal mucosa, no congestion, decreased hearing - Neck No lymphadenopathy, neck supple. no masses, no bruits, trachea midline, no venous distension - Respiratory Lung sounds essentially clear to his bilateral upper lobes, few scattered crackles to his bilateral bases left greater than right. Respirations are symmetrical and nonlabored. Oxygen saturation is 95% on 2 L nasal cannula, bilateral inspiratory expiratory wheezing are present on fours expiration, chest wall is nontender at surgical sites which appears to be healing very well - Cardiovascular Regular rhythm and rate. S1 and S2 present, negative for S3, gallop or murmur. Bedside telemetry showing normal sinus rhythm heart rate 83. +1 to +2 pedal edema bilaterally. Peripheral pulses palpable. - Abdomen Abdomen is soft, nontender and nondistended. Active bowel sounds all 4 abdominal quadrants. Passing flatus. No organomegaly, no guarding or rigidity. - Genitourinary Adequate urine output. Voiding clear iganni urine. - Integumentary Left thoracotomy incision site clean dry and well approximated. Slight swelling surrounding the thoracotomy incision. No drainage or redness. Skin warm and dry to touch. No clubbing or cyanosis. no rash, no growths, no abnormal pigmentation - Neurologic normal coordination, normal sensation - Musculoskeletal normal gait, normal posture - Psychiatric oriented to time, oriented to person, oriented to place, speech is normal, memory intact - Labs CBC & Chem 7: 12/10/17 05:39 12/10/17 05:39 Labs: Abnormal Lab Results - Last 24 Hours (Table) 12/09/17 12/10/17 12/10/17 Range/Units 21:13 05:39 05:39 WBC 14.0 H (3.8-10.6) k/uL RBC 3.90 L (4.30-5.90) m/uL Hgb 11.2 L (13.0-17.5) gm/dL Hct 37.0 L (39.0-53.0) % MCHC 30.3 L (31.0-37.0) g/dL Neutrophils # 12.7 H (1.3-7.7) k/uL Lymphocytes # 0.5 L (1.0-4.8) k/uL Glucose 122 H (74-99) mg/dL POC Glucose (mg/dL) 127 H (75-99) mg/dL Total Protein 5.5 L (6.3-8.2) g/dL Albumin 2.9 L (3.5-5.0) g/dL 12/10/17 12/10/17 Range/Units 06:05 17:23 WBC (3.8-10.6) k/uL RBC (4.30-5.90) m/uL Hgb (13.0-17.5) gm/dL Hct (39.0-53.0) % MCHC (31.0-37.0) g/dL Neutrophils # (1.3-7.7) k/uL Lymphocytes # (1.0-4.8) k/uL Glucose (74-99) mg/dL POC Glucose (mg/dL) 116 H 170 H (75-99) mg/dL Total Protein (6.3-8.2) g/dL Albumin (3.5-5.0) g/dL Microbiology - Last 24 Hours (Table) 12/06/17 08:10 Blood Culture - Preliminary Blood No Growth after 96 hours Assessment and Plan Assessment: Ongoing sepsis along with left-sided pneumonia and left pleural effusion, right basal pneumonia cannot be excluded Patient is at high risk of developing complicated pneumonia given recent left diaphragmatic perforation with costochondral dislocation and fracture and postoperative status Left-sided small loculated pleural effusion Intractable postoperative chest wall pain Severe COPD emphysema, with acute COPD exacerbation Left diaphragmatic herniation status post repair with mesh Left-sided costal chondral fracture and dislocation with lung herniation status post repair done along with the left diaphragmatic hernia repair with mesh Dyslipidemia hypertension hypertensive cardiovascular disease Plan: Pain control, as noted above Gentle rehydration Broad-spectrum antibiotics for bilateral pneumonia, ID consult input appreciated Repeat radiographic studies reviewed will follow obtain another chest x-ray next 24 hours Continue deep breathing exercises incentive spirometry DVT prophylaxis and peptic ulcer disease prophylaxis If pain is persistent and non-resolving consider anesthesia for pain management Labs have been ordered Respiratory therapy has been adjusted Load on Solu-Medrol to once daily Time with Patient: Greater than 30
[2017-12-10 21:16] LABS: Glucose,Whole Blood 135 mg/dL (75-99)
[2017-12-10] MEDS: ATORVASTATIN 10 MG TAB PO SCH (21:17)
[2017-12-10] MEDS: FINASTERIDE 5 MG TAB PO SCH (21:17)
[2017-12-10] MEDS: MONTELUKAST 10 MG TAB PO SCH (21:17)
[2017-12-10] MEDS: TAMSULOSIN 0.4 MG CAP.ER.24H PO SCH (21:17)
[2017-12-10] MEDS: LORazepam 0.5 MG TAB PO SCH (21:59)
--- NOTE | 2017-12-10 22:04 | P.PN ---
Subjective Progress Note Date: 12/10/17 Principal diagnosis: Left pleural effusion Pleasant 72-year-old male presents to Hospital for significant and ongoing pain. This pleasant gentleman relates that in early October he was having significant difficulty with severe cough related to COPD and underlying infection. His related that he coughed so hard he caused a costochondral dislocation as well as a left diaphragmatic rupture with herniation. He was evaluated by Dr. Avila to cardiothoracic surgery was taken to the operating room where a thoracotomy was performed for appear of the diaphragm with mesh as well as repair of the costochondral dislocation. Postoperatively the patient was doing relatively well and was sent home on 11/26/2017. In home setting was doing relatively well. Over significant difficulties was more cough his pain became uncontrolled presented back to the emergency center where he is been admitted. Imaging studies showed evidence of some fluid in the region and there is concern for underlying infection the patient also had a low-grade fever and with that the infectious disease consultation was requested. Patient currently is denying high-grade fevers chills or rigors or sweats. His pain is much better controlled. 12/09/2017 the patient continues to show marked improvement. Current regiment is allowed significant improvement of his pain. The patient's is present. She has concerned in that the patient goes home his pain becomes uncontrolled resulting in coming back to hospital. She would like this to not happen again. On 12/10/2017 the patient continues to have improvement. His pain is now well controlled with current medications. No further bouts of acute bronchospasm. Is truly feeling better than prior. Objective - Vital Signs Vital signs: Vital Signs Temp 97.1 F L 12/10/17 15:11 Pulse 104 H 12/10/17 20:13 Resp 18 12/10/17 15:11 BP 124/80 12/10/17 15:11 Pulse Ox 94 L 12/10/17 15:22 Intake & Output 12/10/17 12/10/17 12/11/17 06:59 18:59 06:59 Intake Total 100 600 Balance 100 600 Weight 88.9 kg Intake: IV 100 Invasive Line 2 100 Oral 600 Other: Voiding Method Toilet Toilet # Voids 1 # Bowel Movements 0 - Exam Pleasant 72-year-old gentleman who relates he is much more comfortable than at admission. HEENT: Anicteric conjunctiva are pink and moist nasal mucosa grossly intact without significant lesions, there is no thrush. Neck: The neck is supple without significant lymphadenopathy or thyromegaly. Lungs: They're symmetrical air entry, there are crackles at the left base but no britney bronchial sounds no dullness or egophony. Is able to take good deep breaths with only minimal discomfort and does not have significant coughing with a deep breath. Heart: Irregular with an audible S1 and S2 without S4. There is no significant murmur click or rub, PMI was nondisplaced. Abdomen: Positive bowel sounds soft and nontender without palpable masses or organomegaly. There was no guarding or rebound. Extremities: The upper extremities have excellent pulses they are symmetric, no significant petechiae or telangiectasia. No splinter hemorrhages were noted. The lower extremities are free from significant edema. The peripheral pulses were 2+ and symmetric. Neuro: Awake alert oriented to person place and time. There are no acute new gross focal sensory motor deficits. Surgical wound to the left chest in the thoracotomy position is healing well without erythema crepitance or fluctuance. - Labs CBC & Chem 7: 12/10/17 05:39 12/10/17 05:39 Labs: Abnormal Lab Results - Last 24 Hours (Table) 12/10/17 12/10/17 12/10/17 Range/Units 05:39 05:39 06:05 WBC 14.0 H (3.8-10.6) k/uL RBC 3.90 L (4.30-5.90) m/uL Hgb 11.2 L (13.0-17.5) gm/dL Hct 37.0 L (39.0-53.0) % MCHC 30.3 L (31.0-37.0) g/dL Neutrophils # 12.7 H (1.3-7.7) k/uL Lymphocytes # 0.5 L (1.0-4.8) k/uL Glucose 122 H (74-99) mg/dL POC Glucose (mg/dL) 116 H (75-99) mg/dL Total Protein 5.5 L (6.3-8.2) g/dL Albumin 2.9 L (3.5-5.0) g/dL 12/10/17 12/10/17 Range/Units 17:23 21:13 WBC (3.8-10.6) k/uL RBC (4.30-5.90) m/uL Hgb (13.0-17.5) gm/dL Hct (39.0-53.0) % MCHC (31.0-37.0) g/dL Neutrophils # (1.3-7.7) k/uL Lymphocytes # (1.0-4.8) k/uL Glucose (74-99) mg/dL POC Glucose (mg/dL) 170 H 135 H (75-99) mg/dL Total Protein (6.3-8.2) g/dL Albumin (3.5-5.0) g/dL Microbiology - Last 24 Hours (Table) 12/06/17 08:10 Blood Culture - Preliminary Blood No Growth after 96 hours Laboratory Results WBC 14.0 k/uL (3.8-10.6) H 12/10/17 05:39 RBC 3.90 m/uL (4.30-5.90) L 12/10/17 05:39 Hgb 11.2 gm/dL (13.0-17.5) L 12/10/17 05:39 Hct 37.0 % (39.0-53.0) L 12/10/17 05:39 MCV 95.0 fL (80.0-100.0) 12/10/17 05:39 MCH 28.8 pg (25.0-35.0) 12/10/17 05:39 MCHC 30.3 g/dL (31.0-37.0) L 12/10/17 05:39 RDW 12.7 % (11.5-15.5) 12/10/17 05:39 Plt Count 377 k/uL (150-450) 12/10/17 05:39 Neutrophils % 91 % 12/10/17 05:39 Lymphocytes % 4 % 12/10/17 05:39 Monocytes % 4 % 12/10/17 05:39 Eosinophils % 0 % 12/10/17 05:39 Basophils % 0 % 12/10/17 05:39 Neutrophils # 12.7 k/uL (1.3-7.7) H 12/10/17 05:39 Lymphocytes # 0.5 k/uL (1.0-4.8) L 12/10/17 05:39 Monocytes # 0.6 k/uL (0-1.0) 12/10/17 05:39 Eosinophils # 0.0 k/uL (0-0.7) 12/10/17 05:39 Basophils # 0.0 k/uL (0-0.2) 12/10/17 05:39 Hypochromasia Slight 12/09/17 05:36 PT 11.2 sec (9.0-12.0) 12/06/17 08:10 INR 1.2 (<1.2) H 12/06/17 08:10 APTT 25.4 sec (22.0-30.0) 12/06/17 08:10 Sodium 139 mmol/L (137-145) 12/10/17 05:39 Potassium 3.8 mmol/L (3.5-5.1) 12/10/17 05:39 Chloride 102 mmol/L (98-107) 12/10/17 05:39 Carbon Dioxide 25 mmol/L (22-30) 12/10/17 05:39 Anion Gap 12 mmol/L 12/10/17 05:39 BUN 14 mg/dL (9-20) 12/10/17 05:39 Creatinine 0.72 mg/dL (0.66-1.25) 12/10/17 05:39 Est GFR (MDRD) Af Amer >60 (>60 ml/min/1.73 sqM) 12/10/17 05:39 Est GFR (MDRD) Non-Af >60 (>60 ml/min/1.73 sqM) 12/10/17 05:39 Glucose 122 mg/dL (74-99) H 12/10/17 05:39 POC Glucose (mg/dL) 135 mg/dL (75-99) H 12/10/17 21:13 POC Glu Physician Chief Of Pathology ROWDY Fredy Kruger 12/10/17 21:[address] Glu mg/dL 123 12/08/17 07:48 Hemoglobin A1c 5.9 % (4.0-6.0) 12/08/17 07:48 Plasma Lactic Acid Geo 1.6 mmol/L (0.7-2.0) 12/06/17 08:10 Calcium 8.6 mg/dL (8.4-10.2) 12/10/17 05:39 Magnesium 1.8 mg/dL (1.6-2.3) 12/06/17 08:10 Total Bilirubin 0.5 mg/dL (0.2-1.3) 12/10/17 05:39 AST 32 U/L (17-59) 12/10/17 05:39 ALT 45 U/L (21-72) 12/10/17 05:39 Alkaline Phosphatase 59 U/L (38-126) 12/10/17 05:39 Total Creatine Kinase 32 U/L (55-170) L 12/06/17 08:10 CK-MB (CK-2) 1.2 ng/mL (0.0-2.4) 12/06/17 08:10 CK-MB (CK-2) Rel Index 3.8 12/06/17 08:10 Troponin I 0.013 ng/mL (0.000-0.034) 12/06/17 08:10 Total Protein 5.5 g/dL (6.3-8.2) L 12/10/17 05:39 Albumin 2.9 g/dL (3.5-5.0) L 12/10/17 05:39 Vancomycin Trough 13.2 ug/mL 12/08/17 07:48 Influenza Type A RNA Not Detected (Not Detectd) 12/06/17 12:15 Influenza Type B (PCR) Not Detected (Not Detectd) 12/06/17 12:15 Microbiology 12/06/17 08:10 Blood Blood Culture - Preliminary No Growth after 96 hours Assessment and Plan (1) COPD (chronic obstructive pulmonary disease) Narrative/Plan: Pleasant 72-year-old male presents to Hospital with severe pain to his left chest at the site of his recent surgical intervention which is a repair of the left diaphragmatic hernia and repair of the costochondral dislocation. Pain control is now much improved. Imaging studies continue to show evidence of some fluid and consolidation at the left base. It is time antibiotic therapy is indicated and given his recent hospitalization coverage with vancomycin and Zosyn is being utilized until we have further data. Would continue ongoing supportive care. Fortunately is feeling better at this point in time and cardiothoracic surgery is following with no plans for further intervention given his improvement. There is a mild leukocytosis that is being monitored. He is not having significant fevers or chills. He is working diligently with his incentive spirometer and receiving the breathing treatments. He did have an acute exacerbation of his COPD yesterday and it is now resolved. Anxiolytics are also being given. Cultures are being monitored. The computed tomography scan was again reviewed showing evidence of a fluid collection but no britney infiltrate. Cardiothoracic surgery is following with no plans for surgical intervention at this time. As he recovers we'll transition to oral antibiotic therapy with amoxicillin clavulanic acid for the next week. The patient's is clearly instructed that his pain control discharge is up to his primary care physician. Current Visit: Yes Status: Chronic Code(s): J44.9 - CHRONIC OBSTRUCTIVE PULMONARY DISEASE, UNSPECIFIED SNOMED Code(s): 63945452 (2) Pleural effusion Current Visit: Yes Status: Acute Code(s): J90 - PLEURAL EFFUSION, NOT ELSEWHERE CLASSIFIED SNOMED Code(s): 04607492 (3) Acute exacerbation of chronic obstructive airways disease Current Visit: No Status: Acute Code(s): J44.1 - CHRONIC OBSTRUCTIVE PULMONARY DISEASE W (ACUTE) EXACERBATION SNOMED Code(s): 291663688 (4) Mnire's disease Current Visit: No Status: Acute Code(s): H81.09 - MENIERE'S DISEASE, UNSPECIFIED EAR SNOMED Code(s): 10460516
[2017-12-11] MEDS: HYDROcodone/APAP 10-325MG 1 EACH TAB PO PRN ×3 (03:10→18:03)
[2017-12-11 06:13] LABS: Glucose,Whole Blood 86 mg/dL (75-99)
[2017-12-11] MEDS: INSULIN ASPART 100 UNIT/ML 1 ML 10 ML VIAL SQ SCH ×4 (06:35→21:36)
[2017-12-11] MEDS: PANTOPRAZOLE 40 MG TABLET PO SCH (06:37)
[2017-12-11] MEDS: BUDESONIDE 0.5 MG/2 ML NEBU INHALATION SCH ×2 (07:48→21:16)
[2017-12-11] MEDS: IPRATROPIUM-ALBUTEROL 3 ML NEB INHALATION SCH ×4 (07:48→21:16)
[2017-12-11] MEDS: FORMOTEROL FUMARATE 20 MCG/2 ML NEBU INHALATION SCH ×2 (07:48→21:26)
[2017-12-11] MEDS ORDERED: VANCOMYCIN TROUGH DUE 1 EACH MISC MISCELLANE ONE (08:00)
[2017-12-11 08:30] LABS: Basophils % (A) 0 %; Eosinophils % (A) 0 %; HCT 40.9 % (39.0-53.0); HGB 12.9 gm/dL (13.0-17.5); Lymphocytes # (A) 1.3 k/uL (1.0-4.8); Lymphocytes % (A) 10 %; MCH 29.4 pg (25.0-35.0); MCHC 31.6 g/dL (31.0-37.0); Mean Platelet Volume 6.3; Monocytes # (A) 0.9 k/uL (0-1.0); Monocytes % (A) 7 %; Neutrophils % (A) 81 %; Platelet Count 473 k/uL (150-450); RDW 12.7 % (11.5-15.5); WBC 13.6 k/uL (3.8-10.6)
--- NOTE | 2017-12-11 08:34 | XR ---
EXAMINATION TYPE: XR chest 2V DATE OF EXAM: 12/11/2017 COMPARISON: Prior chest x-ray 12/08/2017 HISTORY: Pneumonia TECHNIQUE: Frontal and lateral views of the chest are obtained. FINDINGS: There are prominent lung volumes indicative of underlying emphysema. Pleural-based density is noted posteriorly on the lateral exam, there is blunting of the left costophrenic angle. No evide nt pneumothorax. Cardiomediastinal silhouette, pulmonary vascularity and denise are not significantly c hanged. There are overlying cardiac leads and stable thoracic spondylosis. IMPRESSION: Persistent small left pleural effusion or pleural reaction. Emphysema. Postop changes.
[2017-12-11 09:01] LABS: ALT 43 U/L (21-72); AST 28 U/L (17-59); Albumin 3.1 g/dL (3.5-5.0); Alkaline Phosphatase 65 U/L (38-126); Anion Gap 10 mmol/L; Blood Urea Nitrogen 19 mg/dL (9-20); Calcium 9.3 mg/dL (8.4-10.2); Carbon Dioxide 29 mmol/L (22-30); Chloride 101 mmol/L (98-107); Glucose 122 mg/dL (74-99); Potassium 3.6 mmol/L (3.5-5.1); Sodium 140 mmol/L (137-145); Total Bilirubin 0.3 mg/dL (0.2-1.3); Total Protein 5.5 g/dL (6.3-8.2)
[2017-12-11] MEDS: BENZONATATE 100 MG CAP PO SCH ×3 (10:32→20:35)
[2017-12-11] MEDS: INDAPAMIDE 1.25 MG TAB PO SCH (10:32)
[2017-12-11] MEDS: AMOXIC-POT CLAV 875-125MG 1 EACH TAB PO SCH ×2 (10:32→20:35)
[2017-12-11] MEDS: LISINOPRIL 10 MG TAB PO SCH (10:33)
[2017-12-11] MEDS: LORATADINE 10 MG TAB PO SCH (10:33)
[2017-12-11] MEDS: MECLIZINE 25 MG TAB PO SCH (10:34)
[2017-12-11] MEDS: ALPRAZolam 0.25 MG TAB PO PRN ×2 (10:35→15:11)
[2017-12-11 12:03] LABS: Glucose,Whole Blood 85 mg/dL (75-99)
[2017-12-11] MEDS: methylPREDNISolone SOD SUCCI 40 MG/ML 1 ML VIAL IV SCH (12:05)
[2017-12-11 16:54] LABS: Glucose,Whole Blood 166 mg/dL (75-99)
[2017-12-11] MEDS: POTASSIUM CHLORIDE ER 20 MEQ TAB.ER PO SCH ×2 (18:07→20:35)
--- NOTE | 2017-12-11 18:38 | P.PN ---
Subjective Progress Note Date: 12/11/17 Principal diagnosis: Bilateral basal pneumonia, left-sided thoracic wall and chest pain, acute COPD exacerbation, purulent tracheobronchitis, left-sided loculated small pleural effusion, recent left diaphragmatic perforation with herniation abdominal content, with costochondral fracture dislocation status post repair of both 12/11/2017, patient seen and evaluated examined his service severe due to pain is slightly better but however continued to require Orange 3 times a day his cuff congestion and breathing difficulty is stable he is not producing any sputum, patient noted to have borderline hypokalemia, in addition to above patient had a short run of paroxysmal atrial fibrillation which was not noted before was asymptomatic overall plan to replace potassium will ask cardiology to evaluate as well in the meantime continue IV antibiotics breathing treatments and steroid continue supportive care 12/10/2017, patient seen and evaluated examined during the rounds from respiratory standpoint shortness of breath and wheezing are there but severity has improved severity or chest pain is slightly better as well he does not require any more IV medications but he is getting oral pills fairly regularly, he is off of IV Dilaudid also off of Ultram as well as Toradol, he is tolerating Xanax 3 times a day fairly well along with half a milligram of Ativan at bedtime, severe D anxiety and a prehension is improved able to ambulate 12/09/2017, patient seen and evaluated examined during the rounds today he is doing slightly better able to get some sleep wheezing has improved he appears to have responded better with the IV Solu-Medrol to times a day and continuation of antibiotics, patient has been evaluated by infectious disease services input reviewed and appreciated care plan discussed with the patient and present bedside at length also discussed with nursing staff as well be a hoping that we'll DC the IV Toradol to by mouth in next 24-48 hours 12/08/2017, patient seen and evaluated examined during the rounds patient has a acute onset episode of severe anxiety and apprehension and shortness of breath and wheezing earlier this morning x-ray was performed which is reviewed, patient has severe bronchospasm and chest tightness was given emergent breathing treatments and 1 mg of Dilaudid as well as interventions were extremely helpful is severe due to pain is much better under control but is still short of breath bilateral audible wheezing is present. Patient's pain however is better under control otherwise with 3 medications including tramadol , Toradol, Orange and as needed Dilaudid but however they are intermittent and reports of apnea which is transient though would recommend to DC the tramadol and use Toradol and Orange as needed and Dilaudid for severe pain, will continue the Tessalon Perles to avoid excessive coughing, in addition to above I'm going to increase Solu-Medrol to every 12, add Perforomist, use DuoNeb 4 times a day [id number], this detailed discussion occurred with the and patient time spent over 35 minutes, chest x-ray performed today reviewed as well in fact some improved aviation in the left base has been noted, will obtain infectious disease consultation as well to guide us about extended length of antibiotic therapy labs have been ordered as well 12/07/2017, patient seen and evaluated examined during the rounds, severity of left-sided chest wall pain is better but however patient has been noted by intermittent apneic events this detailed discussion with the patient advised to lower down the amount of pain medications, would continue antibiotics breathing treatments appreciate input from surgical services Patient admitted on 12/06/2017 with chief complaint of Shortness of breath and severe degree of chest pain on the left side Patient seen and evaluated examined in the ER as well as on 6 floor, This is a 72-year-old gentleman who is followed by Dr. Quinton Gary on an outpatient basis. His past medical history significant for chronic obstructive pulmonary disease, previous tobacco dependence, hypertension hyperlipidemia, prostate disorder, Mnire's disease, and hearing disorder. presented to the emergency department today via EMS with uncontrolled postoperative pain to his left chest. Patient had the recent acute COPD exacerbation in September 2017 was subsequently discharged and then readmitted in October with severe excruciating left-sided chest wall pain found to have the left diaphragmatic hernia On 2017 the patient underwent a successful left thoracotomy closure of a diaphragmatic hernia with patch and repair of the costochondral dislocation and subsequent lung herniation. He was discharged home 11/26/2017 and presented back to the [facility] emergency department on 11/30/2017 with complaints of postoperative left chest wall pain and progressive progressive shortness of breath. He reports that his pain is a stabbing pain to his left lower abdomen all the way up to his left shoulder. Patient at that time was treated with the IV antibiotics and CAT scan revealed strandy infiltrate at both bases along with alveolitis-like Petrin bilaterally Currently He also reports that he has some shortness of breath and a persistent dry cough. He states that he has not been unable to use his incentive spirometry consistently at home due to the pain with deep breathing. He denies any complaints of nausea, vomiting, diarrhea, fever, or chills. Lab work showed a WBC count of 13.8, Hgb count of 12.1, BUN 18, creatinine 0.90. On presentation to the emergency department he had a low-grade fever of 100.3F, heart rate 75, blood pressure 89/53. A chest x-ray was completed which showed mild cardiomegaly, chronic emphysematous change with left greater than right bibasilar atelectasis and/or infiltrate with small left pleural fluid collection. A follow-up CT scan of his chest was completed which demonstrated fluid extending from a left pleural effusion between posterior lateral left ribs 8 and 9 into the subcutaneous tissue. Objective - Vital Signs Vital signs: Vital Signs Temp 96.7 F L 12/11/17 16:00 Pulse 80 12/11/17 16:39 Resp 20 12/11/17 16:00 BP 164/106 12/11/17 16:00 Pulse Ox 91 L 12/11/17 16:00 Intake & Output 12/10/17 12/11/17 12/11/17 18:59 06:59 18:59 Intake Total 600 472 Balance 600 472 Weight 86.2 kg Intake: Oral 600 472 Other: Voiding Method Toilet Toilet # Voids 1 1 1 # Bowel Movements 0 - Exam General well developed, well nourished, no distress, moderate pain (Currently rates his pain 8 or 9 out of 10 on the pain scale 2 his left chest incision site.) - Eyes PERRL, normal ocular movement - ENT normal pinna, normal nares, normal mucosa, no congestion, decreased hearing - Neck No lymphadenopathy, neck supple. no masses, no bruits, trachea midline, no venous distension - Respiratory Lung sounds essentially clear to his bilateral upper lobes, few scattered crackles to his bilateral bases left greater than right. Respirations are symmetrical and nonlabored. Oxygen saturation is 95% on 2 L nasal cannula, bilateral inspiratory expiratory wheezing are present on fours expiration, chest wall is nontender at surgical sites which appears to be healing very well - Cardiovascular Regular rhythm and rate. S1 and S2 present, negative for S3, gallop or murmur. Bedside telemetry showing normal sinus rhythm heart rate 83. +1 to +2 pedal edema bilaterally. Peripheral pulses palpable. - Abdomen Abdomen is soft, nontender and nondistended. Active bowel sounds all 4 abdominal quadrants. Passing flatus. No organomegaly, no guarding or rigidity. - Genitourinary Adequate urine output. Voiding clear gianni urine. - Integumentary Left thoracotomy incision site clean dry and well approximated. Slight swelling surrounding the thoracotomy incision. No drainage or redness. Skin warm and dry to touch. No clubbing or cyanosis. no rash, no growths, no abnormal pigmentation - Neurologic normal coordination, normal sensation - Musculoskeletal normal gait, normal posture - Psychiatric oriented to time, oriented to person, oriented to place, speech is normal, memory intact - Labs CBC & Chem 7: 12/11/17 08:05 12/11/17 08:05 Labs: Abnormal Lab Results - Last 24 Hours (Table) 12/10/17 12/11/17 12/11/17 Range/Units 21:13 08:05 08:05 WBC 13.6 H (3.8-10.6) k/uL Hgb 12.9 L (13.0-17.5) gm/dL Plt Count 473 H (150-450) k/uL Neutrophils # 11.0 H (1.3-7.7) k/uL Glucose 122 H (74-99) mg/dL POC Glucose (mg/dL) 135 H (75-99) mg/dL Total Protein 5.5 L (6.3-8.2) g/dL Albumin 3.1 L (3.5-5.0) g/dL 12/11/17 Range/Units 16:49 WBC (3.8-10.6) k/uL Hgb (13.0-17.5) gm/dL Plt Count (150-450) k/uL Neutrophils # (1.3-7.7) k/uL Glucose (74-99) mg/dL POC Glucose (mg/dL) 166 H (75-99) mg/dL Total Protein (6.3-8.2) g/dL Albumin (3.5-5.0) g/dL Microbiology - Last 24 Hours (Table) 02/08/18 08:10 Blood Culture - Preliminary Blood No Growth after 120 hours Assessment and Plan Assessment: New onset atrial fibrillation paroxysmal Hypokalemia Ongoing sepsis along with left-sided pneumonia and left pleural effusion, right basal pneumonia cannot be excluded Patient is at high risk of developing complicated pneumonia given recent left diaphragmatic perforation with costochondral dislocation and fracture and postoperative status Left-sided small loculated pleural effusion Intractable postoperative chest wall pain Severe COPD emphysema, with acute COPD exacerbation Left diaphragmatic herniation status post repair with mesh Left-sided costal chondral fracture and dislocation with lung herniation status post repair done along with the left diaphragmatic hernia repair with mesh Dyslipidemia hypertension hypertensive cardiovascular disease Plan: Consult cardiology Replace potassium Pain control, as noted above Gentle rehydration Broad-spectrum antibiotics for bilateral pneumonia, ID consult input appreciated Repeat radiographic studies reviewed will follow obtain another chest x-ray next 24 hours Continue deep breathing exercises incentive spirometry DVT prophylaxis and peptic ulcer disease prophylaxis If pain is persistent and non-resolving consider anesthesia for pain management Labs have been ordered Respiratory therapy has been adjusted Load on Solu-Medrol to once daily Time with Patient: Greater than 30
[2017-12-11] MEDS: FINASTERIDE 5 MG TAB PO SCH (20:35)
[2017-12-11] MEDS: ATORVASTATIN 10 MG TAB PO SCH (20:35)
[2017-12-11] MEDS: TAMSULOSIN 0.4 MG CAP.ER.24H PO SCH (20:35)
[2017-12-11] MEDS: MONTELUKAST 10 MG TAB PO SCH (20:36)
[2017-12-11] MEDS: LORazepam 0.5 MG TAB PO SCH (20:41)
[2017-12-11 21:16] LABS: Glucose,Whole Blood 195 mg/dL (75-99)
[2017-12-12] MEDS: HYDROcodone/APAP 10-325MG 1 EACH TAB PO PRN ×4 (00:11→21:08)
[2017-12-12] MEDS: PANTOPRAZOLE 40 MG TABLET PO SCH (06:03)
[2017-12-12 06:14] LABS: Glucose,Whole Blood 107 mg/dL (75-99)
[2017-12-12] MEDS: INSULIN ASPART 100 UNIT/ML 1 ML 10 ML VIAL SQ SCH ×4 (06:41→21:44)
[2017-12-12] MEDS: IPRATROPIUM-ALBUTEROL 3 ML NEB INHALATION SCH ×4 (07:22→20:09)
[2017-12-12] MEDS: FORMOTEROL FUMARATE 20 MCG/2 ML NEBU INHALATION SCH ×2 (07:22→20:08)
[2017-12-12] MEDS: BUDESONIDE 0.5 MG/2 ML NEBU INHALATION SCH ×2 (07:22→20:08)
[2017-12-12] MEDS: INDAPAMIDE 1.25 MG TAB PO SCH (09:14)
[2017-12-12] MEDS: AMOXIC-POT CLAV 875-125MG 1 EACH TAB PO SCH ×2 (09:14→21:09)
[2017-12-12] MEDS: BENZONATATE 100 MG CAP PO SCH ×3 (09:14→21:08)
[2017-12-12] MEDS: LORATADINE 10 MG TAB PO SCH (09:15)
[2017-12-12] MEDS: ALPRAZolam 0.25 MG TAB PO PRN (09:15)
[2017-12-12] MEDS: LISINOPRIL 10 MG TAB PO SCH (09:15)
[2017-12-12] MEDS: MECLIZINE 25 MG TAB PO SCH (09:15)
[2017-12-12] MEDS: methylPREDNISolone SOD SUCCI 40 MG/ML 1 ML VIAL IV SCH (09:44)
--- NOTE | 2017-12-12 11:32 | P.CRDCN ---
History of Present Illness Consult date: 12/12/17 History of present illness: This is a 72-year-old gentleman with history of chronic smoking, COPD who apparently had surgery for diaphragmatic herniation and being treated for possible pneumonia, was noted to have brief episode of atrial fibrillation. We' re asked to see the patient for further evaluation. Patient denies any previous cardiac history. He does have history of hypertension and hyperlipidemia. Denied any previous CO or cardiac arrhythmias. Patient has been maintaining sinus rhythm with PVCs. I'm going to get an echocardiogram done. I'll start him on small dose of metoprolol 25 twice a day and also on baby aspirin. Further recommendations depend upon clinical course. Review of Systems As per the chart and he H&P Past Medical History Past Medical History: COPD, Hearing Disorder / Deafness, Hyperlipidemia, Hypertension, Prostate Disorder Additional Past Medical History / Comment(s): emphysema, history of menieres disease History of Any Multi-Drug Resistant Organisms: None Reported Past Surgical History: Hernia Repair, Tonsillectomy Additional Past Surgical History / Comment(s): hernia X2, cyst on hand, right foot pin in great toe. Left thoracotomy closure of diaphragmatic hernia with patch, repair of costochondral dislocation with subsequent lung herniation November 22 2017 Past Anesthesia/Blood Transfusion Reactions: No Reported Reaction Past Psychological History: No Psychological Hx Reported Additional Psychological History / Comment(s): . Retired from the [employer]. experience with the [employer], no international travel. No animal exposures Smoking Status: Former smoker Past Alcohol Use History: None Reported Past Drug Use History: None Reported - Past Family History Mother Family Medical History: Dementia Additional Family Medical History / Comment(s): breast cancer Father Family Medical History: No Reported History Medications and Allergies Home Medications Medication Instructions Recorded Confirmed Type Albuterol Inhaler [Ventolin Hfa 2 puff INHALATION RT-Q6H PRN 11/18/17 12/06/17 History Inhaler] Benzonatate [Benzonatate Perle] 200 mg PO TID 11/18/17 12/06/17 History Budesonide [Pulmicort] 0.5 mg INHALATION RT-BID 11/18/17 12/06/17 History Finasteride [Proscar] 5 mg PO HS 11/18/17 12/06/17 History Ipratropium-Albuterol Nebulize 3 ml INHALATION RT-QID 11/18/17 12/06/17 History [Duoneb 0.5 mg-3 mg/3 ml Soln] LORazepam [Ativan] 0.5 mg PO HS 11/18/17 12/06/17 History Lovastatin [Mevacor] 10 mg PO HS 11/18/17 12/06/17 History Meclizine [Antivert] 25 mg PO DAILY 11/18/17 12/06/17 History Montelukast [Singulair] 10 mg PO HS 11/18/17 12/06/17 History Omeprazole 20 mg PO DAILY 11/18/17 12/06/17 History Tamsulosin HCl [Flomax] 0.4 mg PO HS 11/18/17 12/06/17 History Lisinopril [Zestril] 10 mg PO DAILY #0 11/26/17 12/06/17 Rx HYDROcodone/APAP 10-325MG [Dustin 1 tab PO QID PRN #30 tab 12/03/17 12/06/17 Rx 10-325] ALPRAZolam [Xanax] 0.25 mg PO TID PRN #90 tab 12/12/17 Rx Amoxic-Pot Clav 875-125Mg 1 tab PO Q12HR #20 tablet 12/12/17 Rx [Augmentin 875-125] methylPREDNISolone [Medrol Dose 4 mg PO DIRECTED #21 pack 12/12/17 Rx Pack] Allergies Allergy/AdvReac Type Severity Reaction Status Date / Time No Known Allergies Allergy Verified 12/06/17 08:34 Physical Exam Vitals: Vital Signs Temp Pulse Pulse Pulse Resp BP BP 12/12/17 08:40 16 12/12/17 08:00 98.0 F 88 87 16 161/80 12/12/17 07:52 84 12/12/17 07:35 76 12/12/17 07:22 76 12/12/17 04:00 98.0 F 88 85 16 146/100 12/12/17 00:00 97.7 F 92 85 16 140/95 12/11/17 21:34 92 16 12/11/17 21:27 90 16 12/11/17 21:26 91 16 12/11/17 21:17 12/11/17 21:16 93 16 12/11/17 20:00 98.8 F 85 16 137/88 12/11/17 16:39 80 12/11/17 16:23 76 12/11/17 16:00 96.7 F L 91 20 164/106 12/11/17 12:00 96 18 12/11/17 11:57 82 12/11/17 11:49 82 12/11/17 11:36 96.7 F L 96 18 142/94 Pulse Ox 12/12/17 08:40 12/12/17 08:00 95 12/12/17 07:52 12/12/17 07:35 12/12/17 07:22 12/12/17 04:00 12/12/17 00:00 94 L 12/11/17 21:34 12/11/17 21:27 12/11/17 21:26 12/11/17 21:17 92 L 12/11/17 21:16 12/11/17 20:00 93 L 12/11/17 16:39 12/11/17 16:23 12/11/17 16:00 91 L 12/11/17 12:00 12/11/17 11:57 12/11/17 11:49 12/11/17 11:36 Intake and Output 12/11/17 12/12/17 12/12/17 22:59 06:59 14:59 Intake Total 361 240 360 Balance 361 240 360 Intake: Oral 361 240 360 Other: Voiding Method Toilet Toilet # Voids 3 3 Weight 87 kg GENERAL EXAM: Patient is alert and oriented and doesn't appear to be in any acute distress HEENT: Normocephalic. NECK: No masses, no nuchal rigidity. CHEST: No chest wall deformity. LUNGS: Diminished breath sounds both bases HEART: S1 and S2 normal with no audible mumurs or gallops. Regular rhythm, ABDOMEN: No hepatosplenomegaly, normal bowel sounds, no guarding or rigidity. SKIN: No rashes CENTRAL NERVOUS SYSTEM: No focal deficits. EXTREMITIES: No cyanosis, clubbing or edema. Results 12/11/17 08:05 12/11/17 08:05 Current Medications Generic Name Dose Route Start Last Admin Trade Name Freq PRN Reason Stop Dose Admin Hydrocodone Bitart/Acetaminophen 1 each 12/07/17 09:35 12/12/17 06:01 Dustin 10 PO 1 each QID PRN Administration Pain Albuterol/Ipratropium 3 ml 12/06/17 16:32 12/08/17 06:54 Duoneb 0.5 Mg-3 Mg/3 Ml Soln INHALATION 3 ml RT-QID PRN Administration Shortness Of Breath Or Wheezing Albuterol/Ipratropium 3 ml 12/08/17 12:00 12/12/17 07:22 Duoneb 0.5 Mg-3 Mg/3 Ml Soln INHALATION 3 ml RT-QID LEANDRO Administration Alprazolam 0.25 mg 12/08/17 08:28 12/12/17 09:15 Xanax PO 0.25 mg TID PRN Administration Anxiety Amoxicillin/Clavulanate Potassium 1 each 12/11/17 09:00 12/12/17 09:14 Augmentin 875-125 PO 12/17/17 23:59 1 each Q12HR LEANDRO Administration Aspirin 81 mg 12/12/17 21:00 Aspirin PO HS LEANDRO Atorvastatin Calcium 10 mg 12/07/17 21:00 12/11/17 20:35 Lipitor PO 10 mg HS LEANDRO Administration Benzocaine/Menthol 1 each 12/09/17 09:56 12/09/17 23:18 Cepacol Lozenge MUCOUS MEM 1 each Q4HR PRN Administration Sore Throat Benzonatate 200 mg 12/07/17 16:00 12/12/17 09:14 Tessalon Perles PO 200 mg TID LEANDRO Administration Budesonide 0.5 mg 12/07/17 20:00 12/12/17 07:22 Pulmicort INHALATION 0.5 mg RT-BID LEANDRO Administration Finasteride 5 mg 12/07/17 21:00 12/11/17 20:35 Proscar PO 5 mg HS LEANDRO Administration Formoterol Fumarate 20 mcg 12/08/17 20:00 12/12/17 07:22 Perforomist INHALATION 20 mcg RT-BID LEANDRO Administration Indapamide 1.25 mg 12/09/17 09:00 12/12/17 09:14 Lozol PO 1.25 mg DAILY LEANDRO Administration Insulin Aspart 0 unit 12/08/17 12:30 12/12/17 06:41 Novolog SQ Not Given ACHS [facility] Protocol Lisinopril 10 mg 12/07/17 09:45 12/12/17 09:15 Zestril PO 10 mg DAILY LEANDRO Administration Loratadine 10 mg 12/09/17 09:00 12/12/17 09:15 Claritin PO 10 mg DAILY LEANDRO Administration Lorazepam 0.5 mg 12/07/17 21:00 12/11/17 20:41 Ativan PO 0.5 mg HS LEANDRO Administration Meclizine HCl 25 mg 12/07/17 09:45 12/12/17 09:15 Antivert PO 25 mg DAILY LEANDRO Administration Methylprednisolone Sodium Succinate 40 mg 12/11/17 09:00 12/12/17 09:44 Solu-Medrol IV 40 mg DAILY LEANDRO Administration Metoprolol Tartrate 25 mg 12/12/17 11:30 Lopressor PO BID LEANDRO Montelukast Sodium 10 mg 12/07/17 21:00 12/11/17 20:36 Singulair PO 10 mg HS LEANDRO Administration Pantoprazole Sodium 40 mg 12/07/17 07:30 12/12/17 06:03 Protonix PO 40 mg [id number] LEANDRO Administration Sodium Chloride 2 spray 12/08/17 08:28 Deep Sea NASAL QID PRN Dry Nasal Passages Tamsulosin HCl 0.4 mg 12/07/17 21:00 12/11/17 20:35 Flomax PO 0.4 mg HS LEANDRO Administration Intake and Output 12/11/17 12/12/17 12/12/17 22:59 06:59 14:59 Intake Total 361 240 360 Balance 361 240 360 Intake: Oral 361 240 360 Other: Voiding Method Toilet Toilet # Voids 3 3 Weight 87 kg 12/11/17 08:05 12/11/17 08:05 EKG Interpretations (text) Sinus rhythm and monitor strip showed an episode of A. fib Assessment and Plan (1) Paroxysmal atrial fibrillation Current Visit: Yes Status: Acute Code(s): I48.0 - PAROXYSMAL ATRIAL FIBRILLATION SNOMED Code(s): 514852220 (2) COPD (chronic obstructive pulmonary disease) Current Visit: Yes Status: Chronic Code(s): J44.9 - CHRONIC OBSTRUCTIVE PULMONARY DISEASE, UNSPECIFIED SNOMED Code(s): 18330994 (3) Hyperlipidemia Current Visit: Yes Status: Chronic Code(s): E78.5 - HYPERLIPIDEMIA, UNSPECIFIED SNOMED Code(s): 32941512 (4) Hypertension Current Visit: Yes Status: Chronic Code(s): I10 - ESSENTIAL (PRIMARY) HYPERTENSION SNOMED Code(s): 78529471 (5) Mnire's disease Current Visit: No Status: Acute Code(s): H81.09 - MENIERE'S DISEASE, UNSPECIFIED EAR SNOMED Code(s): 89243250 Plan: Continue current management. I'm going to get an echocardiogram patient is being started on metoprolol along with aspirin. Further recommendations to follow
[2017-12-12] MEDS: METOPROLOL TARTRATE 25 MG TAB PO SCH ×2 (11:50→21:09)
[2017-12-12 12:08] LABS: Glucose,Whole Blood 110 mg/dL (75-99)
--- NOTE | 2017-12-12 13:41 | P.PN ---
Subjective Progress Note Date: 12/12/17 Principal diagnosis: Acute transient paroxysmal atrial fibrillation, Bilateral basal pneumonia, left- sided thoracic wall and chest pain, acute COPD exacerbation, purulent tracheobronchitis, left-sided loculated small pleural effusion, recent left diaphragmatic perforation with herniation abdominal content, with costochondral fracture dislocation status post repair of both 12/12/2017, patient seen eval examined during the rounds chest pain is much better breathing difficulty is improved to pain management management is better under control still left cough and intermittent wheezing, from pulmonary standpoint patient has been doing fairly well however given that episode of paroxysmal atrial fibrillation patient is being eval by cardiovascular services they recommended echocardiogram as well as a starting patient on low-dose Lopressor the discharge has been held given their recommendation will be closely monitor observe for atrial fibrillation response of therapy for next 24 hours given the paroxysmal and transient nature and association with hypokalemia and they feel patient will not require anticoagulation, in the meantime we'll DC the antibiotics patient already has been started on Augmentin , will DC the Solu-Medrol as well and put patient on oral prednisone patient will likely finish Medrol Dosepak in outpatient setting 12/11/2017, patient seen and evaluated examined his service severe due to pain is slightly better but however continued to require Keene 3 times a day his cuff congestion and breathing difficulty is stable he is not producing any sputum, patient noted to have borderline hypokalemia, in addition to above patient had a short run of paroxysmal atrial fibrillation which was not noted before was asymptomatic overall plan to replace potassium will ask cardiology to evaluate as well in the meantime continue IV antibiotics breathing treatments and steroid continue supportive care 12/10/2017, patient seen and evaluated examined during the rounds from respiratory standpoint shortness of breath and wheezing are there but severity has improved severity or chest pain is slightly better as well he does not require any more IV medications but he is getting oral pills fairly regularly, he is off of IV Dilaudid also off of Ultram as well as Toradol, he is tolerating Xanax 3 times a day fairly well along with half a milligram of Ativan at bedtime, severe D anxiety and a prehension is improved able to ambulate 12/09/2017, patient seen and evaluated examined during the rounds today he is doing slightly better able to get some sleep wheezing has improved he appears to have responded better with the IV Solu-Medrol to times a day and continuation of antibiotics, patient has been evaluated by infectious disease services input reviewed and appreciated care plan discussed with the patient and present bedside at length also discussed with nursing staff as well be a hoping that we'll DC the IV Toradol to by mouth in next 24-48 hours 12/08/2017, patient seen and evaluated examined during the rounds patient has a acute onset episode of severe anxiety and apprehension and shortness of breath and wheezing earlier this morning x-ray was performed which is reviewed, patient has severe bronchospasm and chest tightness was given emergent breathing treatments and 1 mg of Dilaudid as well as interventions were extremely helpful is severe due to pain is much better under control but is still short of breath bilateral audible wheezing is present. Patient's pain however is better under control otherwise with 3 medications including tramadol , Toradol, Keene and as needed Dilaudid but however they are intermittent and reports of apnea which is transient though would recommend to DC the tramadol and use Toradol and Keene as needed and Dilaudid for severe pain, will continue the Tessalon Perles to avoid excessive coughing, in addition to above I'm going to increase Solu-Medrol to every 12, add Perforomist, use DuoNeb 4 times a day [id number], this detailed discussion occurred with the and patient time spent over 35 minutes, chest x-ray performed today reviewed as well in fact some improved aviation in the left base has been noted, will obtain infectious disease consultation as well to guide us about extended length of antibiotic therapy labs have been ordered as well 12/07/2017, patient seen and evaluated examined during the rounds, severity of left-sided chest wall pain is better but however patient has been noted by intermittent apneic events this detailed discussion with the patient advised to lower down the amount of pain medications, would continue antibiotics breathing treatments appreciate input from surgical services Patient admitted on 12/06/2017 with chief complaint of Shortness of breath and severe degree of chest pain on the left side Patient seen and evaluated examined in the ER as well as on 6 floor, This is a 72-year-old gentleman who is followed by Dr. Quinton Gary on an outpatient basis. His past medical history significant for chronic obstructive pulmonary disease, previous tobacco dependence, hypertension hyperlipidemia, prostate disorder, Mnire's disease, and hearing disorder. presented to the emergency department today via EMS with uncontrolled postoperative pain to his left chest. Patient had the recent acute COPD exacerbation in September 2017 was subsequently discharged and then readmitted in October with severe excruciating left-sided chest wall pain found to have the left diaphragmatic hernia On 2017 the patient underwent a successful left thoracotomy closure of a diaphragmatic hernia with patch and repair of the costochondral dislocation and subsequent lung herniation. He was discharged home 11/26/2017 and presented back to the [facility] emergency department on 11/30/2017 with complaints of postoperative left chest wall pain and progressive progressive shortness of breath. He reports that his pain is a stabbing pain to his left lower abdomen all the way up to his left shoulder. Patient at that time was treated with the IV antibiotics and CAT scan revealed strandy infiltrate at both bases along with alveolitis-like Petrin bilaterally Currently He also reports that he has some shortness of breath and a persistent dry cough. He states that he has not been unable to use his incentive spirometry consistently at home due to the pain with deep breathing. He denies any complaints of nausea, vomiting, diarrhea, fever, or chills. Lab work showed a WBC count of 13.8, Hgb count of 12.1, BUN 18, creatinine 0.90. On presentation to the emergency department he had a low-grade fever of 100.3F, heart rate 75, blood pressure 89/53. A chest x-ray was completed which showed mild cardiomegaly, chronic emphysematous change with left greater than right bibasilar atelectasis and/or infiltrate with small left pleural fluid collection. A follow-up CT scan of his chest was completed which demonstrated fluid extending from a left pleural effusion between posterior lateral left ribs 8 and 9 into the subcutaneous tissue. Objective - Vital Signs Vital signs: Vital Signs Temp 98.0 F 12/12/17 08:00 Pulse 77 12/12/17 11:51 Resp 18 12/12/17 11:27 BP 174/84 12/12/17 11:27 Pulse Ox 94 L 12/12/17 11:27 Intake & Output 12/11/17 12/12/17 12/12/17 18:59 06:59 18:59 Intake Total 472 365 360 Balance 472 365 360 Weight 87 kg Intake: Oral 472 365 360 Other: Voiding Method Toilet Toilet # Voids 1 3 - Exam General well developed, well nourished, no distress, moderate pain (Currently rates his pain 8 or 9 out of 10 on the pain scale 2 his left chest incision site.) - Eyes PERRL, normal ocular movement - ENT normal pinna, normal nares, normal mucosa, no congestion, decreased hearing - Neck No lymphadenopathy, neck supple. no masses, no bruits, trachea midline, no venous distension - Respiratory Lung sounds essentially clear to his bilateral upper lobes, few scattered crackles to his bilateral bases left greater than right. Respirations are symmetrical and nonlabored. Oxygen saturation is 95% on 2 L nasal cannula, bilateral inspiratory expiratory wheezing are present on fours expiration, chest wall is nontender at surgical sites which appears to be healing very well - Cardiovascular Regular rhythm and rate. S1 and S2 present, negative for S3, gallop or murmur. Bedside telemetry showing normal sinus rhythm heart rate 83. +1 to +2 pedal edema bilaterally. Peripheral pulses palpable. - Abdomen Abdomen is soft, nontender and nondistended. Active bowel sounds all 4 abdominal quadrants. Passing flatus. No organomegaly, no guarding or rigidity. - Genitourinary Adequate urine output. Voiding clear gianni urine. - Integumentary Left thoracotomy incision site clean dry and well approximated. Slight swelling surrounding the thoracotomy incision. No drainage or redness. Skin warm and dry to touch. No clubbing or cyanosis. no rash, no growths, no abnormal pigmentation - Neurologic normal coordination, normal sensation - Musculoskeletal normal gait, normal posture - Psychiatric oriented to time, oriented to person, oriented to place, speech is normal, memory intact - Labs CBC & Chem 7: 12/11/17 08:05 12/11/17 08:05 Labs: Abnormal Lab Results - Last 24 Hours (Table) 12/11/17 12/11/17 12/12/17 Range/Units 16:49 21:15 06:10 POC Glucose (mg/dL) 166 H 195 H 107 H (75-99) mg/dL 12/12/17 Range/Units 11:47 POC Glucose (mg/dL) 110 H (75-99) mg/dL Microbiology - Last 24 Hours (Table) 12/06/17 08:10 Blood Culture - Final Blood No Growth after 144 hours Assessment and Plan Assessment: New onset atrial fibrillation paroxysmal Hypokalemia Ongoing sepsis along with left-sided pneumonia and left pleural effusion, right basal pneumonia cannot be excluded Patient is at high risk of developing complicated pneumonia given recent left diaphragmatic perforation with costochondral dislocation and fracture and postoperative status Left-sided small loculated pleural effusion Intractable postoperative chest wall pain Severe COPD emphysema, with acute COPD exacerbation Left diaphragmatic herniation status post repair with mesh Left-sided costal chondral fracture and dislocation with lung herniation status post repair done along with the left diaphragmatic hernia repair with mesh Dyslipidemia hypertension hypertensive cardiovascular disease Plan: Consult cardiology, recommendation reviewed and will follow Replace potassium Pain control, as noted above Gentle rehydration Broad-spectrum antibiotics for bilateral pneumonia, ID consult input appreciated Repeat radiographic studies reviewed will follow obtain another chest x-ray next 24 hours Continue deep breathing exercises incentive spirometry DVT prophylaxis and peptic ulcer disease prophylaxis If pain is persistent and non-resolving consider anesthesia for pain management Labs have been ordered Respiratory therapy has been adjusted Load on Solu-Medrol to once daily Time with Patient: Greater than 30
[2017-12-12 14:41] VITALS: BMI 28.3
[2017-12-12 16:55] LABS: Glucose,Whole Blood 168 mg/dL (75-99)
[2017-12-12] MEDS ORDERED: ASPIRIN 81 MG PO SCH (21:00)
[2017-12-12] MEDS: LORazepam 0.5 MG TAB PO SCH (21:08)
[2017-12-12] MEDS: FINASTERIDE 5 MG TAB PO SCH (21:09)
[2017-12-12] MEDS: ATORVASTATIN 10 MG TAB PO SCH (21:09)
[2017-12-12] MEDS: MONTELUKAST 10 MG TAB PO SCH (21:09)
[2017-12-12] MEDS: TAMSULOSIN 0.4 MG CAP.ER.24H PO SCH (21:09)
[2017-12-12 21:25] LABS: Glucose,Whole Blood 173 mg/dL (75-99)
[2017-12-13] MEDS: HYDROcodone/APAP 10-325MG 1 EACH TAB PO PRN ×2 (03:18→11:25)
[2017-12-13 06:13] LABS: Glucose,Whole Blood 81 mg/dL (75-99)
[2017-12-13] MEDS: INSULIN ASPART 100 UNIT/ML 1 ML 10 ML VIAL SQ SCH ×2 (06:16→12:22)
[2017-12-13] MEDS: PANTOPRAZOLE 40 MG TABLET PO SCH (06:18)
[2017-12-13] MEDS: IPRATROPIUM-ALBUTEROL 3 ML NEB INHALATION SCH ×3 (08:00→15:28)
[2017-12-13] MEDS: BUDESONIDE 0.5 MG/2 ML NEBU INHALATION SCH (08:00)
[2017-12-13] MEDS: FORMOTEROL FUMARATE 20 MCG/2 ML NEBU INHALATION SCH (08:00)
[2017-12-13 08:19] VITALS: RESP 18; TEMP 98
--- NOTE | 2017-12-13 08:20 | P.PN ---
Progress Note - Text Progress Note Date: 12/13/17 The patient was seen and examined this morning by Dr. Avila. He has no new complaints. Ambulating in the room. States pain is controlled. Left lateral chest wall incision well approximated. Patient may be discharged to home from our standpoint. Follow up appointment made for patient to see Dr. Avila in a month.
[2017-12-13] MEDS: AMOXIC-POT CLAV 875-125MG 1 EACH TAB PO SCH (08:40)
[2017-12-13] MEDS: LORATADINE 10 MG TAB PO SCH (08:41)
[2017-12-13] MEDS: LISINOPRIL 10 MG TAB PO SCH (08:41)
[2017-12-13] MEDS: INDAPAMIDE 1.25 MG TAB PO SCH (08:41)
[2017-12-13] MEDS: BENZONATATE 100 MG CAP PO SCH (08:41)
[2017-12-13] MEDS: MECLIZINE 25 MG TAB PO SCH (08:43)
[2017-12-13] MEDS: METOPROLOL TARTRATE 25 MG TAB PO SCH (08:44)
[2017-12-13] MEDS ORDERED: predniSONE 20 MG TAB PO SCH (09:00)
--- NOTE | 2017-12-13 11:34 | ECHOF ---
Referral Reason:Chest pain and cardiomyopathy MEASUREMENTS -------- HEIGHT: 175.3 cm WEIGHT: 86.6 kg BP: 174/84 RVIDd: 4.0 cm (< 3.3) IVSd: 1.2 cm (0.6 - 1.1) LVIDd: 4.2 cm (3.9 - 5.3) LVPWd: 1.1 cm (0.6 - 1.1) IVSs: 1.3 cm LVIDs: 3.1 cm LVPWs: 1.3 cm LAESV Index (A-L): 17.97 ml/m Ao Diam: 3.3 cm (2.0 - 3.7) AV Cusp: 2.0 cm (1.5 - 2.6) LA Diam: 4.1 cm (2.7 - 3.8) MV E Zev: 0.65 m/s MV DecT: 278 ms MV A Zev: 0.83 m/s MV E/A Ratio: 0.78 RAP: 5.00 mmHg RVSP: 48.92 mmHg FINDINGS -------- Sinus rhythm. This was a technically adequate study. The left ventricular size is normal. There is mild concentric left ventricular hypertrophy. Overa ll left ventricular systolic function is low-normal with, an EF between 50 - 55 %. The right ventricle is moderately enlarged. Normal LA size by volume 22+/-6 ml/m2. RA appears enlarged. The aortic valve is trileaflet, and appears structurally normal. No aortic stenosis or regurgitation. The mitral valve leaflets are mildly thickened. Moderate mitral regurgitation is present. [id number] tricuspid regurgitation present. There is mild pulmonary hypertension. The right ventricular systolic pressure, as measured by Doppler, is 48.92mmHg. Trace/mild (physiologic) pulmonic regurgitation. The aortic root size is normal. Normal inferior vena cava with normal inspiratory collapse consistent with estimated right atrial pre ssure of 5 mmHg. There is no pericardial effusion. CONCLUSIONS -------- 1. Sinus rhythm. 2. This was a technically adequate study. 3. The left ventricular size is normal. 4. There is mild concentric left ventricular hypertrophy. 5. Overall left ventricular systolic function is low-normal with, an EF between 50 - 55 %. 6. The right ventricle is moderately enlarged. 7. Normal LA size by volume 22+/-6 ml/m2. 8. RA appears enlarged. 9. The aortic valve is trileaflet, and appears structurally normal. No aortic stenosis or regurgitati on. 10. The mitral valve leaflets are mildly thickened. 11. Moderate mitral regurgitation is present. 12. [id number] tricuspid regurgitation present. 13. There is mild pulmonary hypertension. 14. Trace/mild (physiologic) pulmonic regurgitation. 15. The aortic root size is normal. 16. There is no pericardial effusion. BUSINESS PROCESS EXPERT: Marcellus Tao RDCS
[2017-12-13 12:02] LABS: Glucose,Whole Blood 109 mg/dL (75-99)
[2017-12-13] MEDS: ALPRAZolam 0.25 MG TAB PO PRN (13:12)
[2017-12-13 15:50] VITALS: BP 138/67; PULSE 97
--- NOTE | 2017-12-13 15:50 | P.PN ---
Subjective Progress Note Date: 12/13/17 This is a 72-year-old gentleman with history of chronic smoking, COPD who apparently had surgery for diaphragmatic herniation and being treated for possible pneumonia, was noted to have brief episode of atrial fibrillation. We' re asked to see the patient for further evaluation. Patient denies any previous cardiac history. He does have history of hypertension and hyperlipidemia. Denied any previous PR or cardiac arrhythmias. Patient has been maintaining sinus rhythm with PVCs. I'm going to get an echocardiogram done. I'll start him on small dose of metoprolol 25 twice a day and also on baby aspirin. Further recommendations depend upon clinical course. 12/13/2017 Patient seen and examined this morning, no episodes of atrial fibrillation noted on the monitor. Blood pressure 148/80 with a heart rate in the 70s. Echocardiogram with Doppler study was performed which revealed normal left ventricular systolic function. Our recommendation is that the patient continue beta rosalinda and aspirin. Objective - Vital Signs Vital signs: Vital Signs Temp 98 F 12/13/17 11:22 Pulse 92 12/13/17 15:28 Resp 18 12/13/17 11:22 BP 149/84 12/13/17 11:22 Pulse Ox 95 12/13/17 11:22 Intake & Output 12/12/17 12/13/17 12/13/17 18:59 06:59 18:59 Intake Total 660 150 720 Balance 660 150 720 Weight 87 kg 86.4 kg Intake: Oral 660 150 720 Other: Voiding Method Toilet # Voids 4 3 - Exam PHYSICAL EXAMINATION: HEENT: Head is atraumatic, normocephalic. Pupils equal, round. Neck is supple. There is no elevated jugular venous pressure. HEART EXAMINATION: Heart S1, S2 normal. No murmur or gallop heard. CHEST EXAMINATION: Lungs are clear to auscultation and precussion. No chest wall tenderness is noted on palpation or with deep breathing. ABDOMEN: Soft, nontender. Bowel sounds are heard. No organomegaly noted. EXTREMITIES: 2+ peripheral pulses with no evidence of peripheral edema and no calf tenderness noted. NEUROLOGIC patient is awake, alert and oriented -3. . - Labs CBC & Chem 7: 12/11/17 08:05 12/11/17 08:05 Labs: Abnormal Lab Results - Last 24 Hours (Table) 12/12/17 12/12/17 12/13/17 Range/Units 16:43 21:23 11:54 POC Glucose (mg/dL) 168 H 173 H 109 H (75-99) mg/dL Assessment and Plan Plan: Assessment and plan #1 paroxysmal atrial fibrillation #2 COPD #3 hyperlipidemia #4 hypertension # 5 Mnire's disease Plan Echocardiogram with Doppler study was performed which revealed normal left ventricular systolic function. We will continue the patient on beta blockers along with aspirin. He may be able to be discharged once cleared by primary, we 'll make a follow-up appointment in the office post discharge. DNP note has been reviewed, I agree with a documented findings and plan of care. Patient was seen and examined.
--- NOTE | 2017-12-13 16:01 | P.DS ---
Providers Date of admission: 12/06/17 11:51 Expected date of discharge: 12/13/17 Attending physician: Matt Moss Consults: 12/06/17 11:51 Consult Physician Urgent Consulting Provider: Khoi Avila Consult Reason/Comments: Postop chest pain Do you want consulting provider notified?: Yes 12/08/17 09:26 Consult Physician Routine Consulting Provider: Jessica Fernando Consult Reason/Comments: pneumonia, bilateral post operative Do you want consulting provider notified?: Yes 12/11/17 18:41 Consult Physician Routine Consulting Provider: Aleksandr Salazar Consult Reason/Comments: atrial fibrillation Do you want consulting provider notified?: Yes Primary care physician: [facility] Course: For details please refer to detailed progress note and admitting history and physical and consultations note Discharge diagnosis Acute transient paroxysmal atrial fibrillation, Bilateral basal pneumonia, left-sided thoracic wall and chest pain, acute COPD exacerbation, purulent tracheobronchitis, left-sided loculated small pleural effusion, recent left diaphragmatic perforation with herniation abdominal content, with costochondral fracture dislocation status post repair of both 12/13/2017, patient seen and evaluated examined clinically has improved significantly patient was kept in the hospital for 1 more day as per request of the cardiology for acute onset of paroxysmal atrial fibrillation which is spontaneously resolved they recommend patient to plays on small dose of Lopressor echocardiogram is done for that details please refer to the detailed report and cardiology recommendation, from respiratory standpoint he denies any wheezing cuff congestion or shortness of breath he is off of IV steroids on oral prednisone and he will finished Medrol Dosepak on outpatient setting oral Augmentin with continuation of her home medicine pain control with be with [place] and he will follow with me care plan discussed with patient and at length 12/12/2017, patient seen eval examined during the rounds chest pain is much better breathing difficulty is improved to pain management management is better under control still left cough and intermittent wheezing, from pulmonary standpoint patient has been doing fairly well however given that episode of paroxysmal atrial fibrillation patient is being eval by cardiovascular services they recommended echocardiogram as well as a starting patient on low-dose Lopressor the discharge has been held given their recommendation will be closely monitor observe for atrial fibrillation response of therapy for next 24 hours given the paroxysmal and transient nature and association with hypokalemia and they feel patient will not require anticoagulation, in the meantime we'll DC the antibiotics patient already has been started on Augmentin , will DC the Solu-Medrol as well and put patient on oral prednisone patient will likely finish Medrol Dosepak in outpatient setting 12/11/2017, patient seen and evaluated examined his service severe due to pain is slightly better but however continued to require [place] 3 times a day his cuff congestion and breathing difficulty is stable he is not producing any sputum, patient noted to have borderline hypokalemia, in addition to above patient had a short run of paroxysmal atrial fibrillation which was not noted before was asymptomatic overall plan to replace potassium will ask cardiology to evaluate as well in the meantime continue IV antibiotics breathing treatments and steroid continue supportive care 12/10/2017, patient seen and evaluated examined during the rounds from respiratory standpoint shortness of breath and wheezing are there but severity has improved severity or chest pain is slightly better as well he does not require any more IV medications but he is getting oral pills fairly regularly, he is off of IV Dilaudid also off of Ultram as well as Toradol, he is tolerating Xanax 3 times a day fairly well along with half a milligram of Ativan at bedtime, severe D anxiety and a prehension is improved able to ambulate 12/09/2017, patient seen and evaluated examined during the rounds today he is doing slightly better able to get some sleep wheezing has improved he appears to have responded better with the IV Solu-Medrol to times a day and continuation of antibiotics, patient has been evaluated by infectious disease services input reviewed and appreciated care plan discussed with the patient and present bedside at length also discussed with nursing staff as well be a hoping that we'll DC the IV Toradol to by mouth in next 24-48 hours 12/08/2017, patient seen and evaluated examined during the rounds patient has a acute onset episode of severe anxiety and apprehension and shortness of breath and wheezing earlier this morning x-ray was performed which is reviewed, patient has severe bronchospasm and chest tightness was given emergent breathing treatments and 1 mg of Dilaudid as well as interventions were extremely helpful is severe due to pain is much better under control but is still short of breath bilateral audible wheezing is present. Patient's pain however is better under control otherwise with 3 medications including tramadol , Toradol, [place] and as needed Dilaudid but however they are intermittent and reports of apnea which is transient though would recommend to DC the tramadol and use Toradol and [place] as needed and Dilaudid for severe pain, will continue the Tessalon Perles to avoid excessive coughing, in addition to above I'm going to increase Solu-Medrol to every 12, add Perforomist, use DuoNeb 4 times a day [id number], this detailed discussion occurred with the and patient time spent over 35 minutes, chest x-ray performed today reviewed as well in fact some improved aviation in the left base has been noted, will obtain infectious disease consultation as well to guide us about extended length of antibiotic therapy labs have been ordered as well 12/07/2017, patient seen and evaluated examined during the rounds, severity of left-sided chest wall pain is better but however patient has been noted by intermittent apneic events this detailed discussion with the patient advised to lower down the amount of pain medications, would continue antibiotics breathing treatments appreciate input from surgical services Patient admitted on 12/06/2017 with chief complaint of Shortness of breath and severe degree of chest pain on the left side Patient seen and evaluated examined in the ER as well as on 6 floor, This is a 72-year-old gentleman who is followed by Dr. Quinton Gary on an outpatient basis. His past medical history significant for chronic obstructive pulmonary disease, previous tobacco dependence, hypertension hyperlipidemia, prostate disorder, Mnire's disease, and hearing disorder. presented to the emergency department today via EMS with uncontrolled postoperative pain to his left chest. Patient had the recent acute COPD exacerbation in September 2017 was subsequently discharged and then readmitted in October with severe excruciating left-sided chest wall pain found to have the left diaphragmatic hernia On 2017 the patient underwent a successful left thoracotomy closure of a diaphragmatic hernia with patch and repair of the costochondral dislocation and subsequent lung herniation. He was discharged home 11/26/2017 and presented back to the [facility] emergency department on 11/30/2017 with complaints of postoperative left chest wall pain and progressive progressive shortness of breath. He reports that his pain is a stabbing pain to his left lower abdomen all the way up to his left shoulder. Patient at that time was treated with the IV antibiotics and CAT scan revealed strandy infiltrate at both bases along with alveolitis-like Petrin bilaterally Currently He also reports that he has some shortness of breath and a persistent dry cough. He states that he has not been unable to use his incentive spirometry consistently at home due to the pain with deep breathing. He denies any complaints of nausea, vomiting, diarrhea, fever, or chills. Lab work showed a WBC count of 13.8, Hgb count of 12.1, BUN 18, creatinine 0.90. On presentation to the emergency department he had a low-grade fever of 100.3F, heart rate 75, blood pressure 89/53. A chest x-ray was completed which showed mild cardiomegaly, chronic emphysematous change with left greater than right bibasilar atelectasis and/or infiltrate with small left pleural fluid collection. A follow-up CT scan of his chest was completed which demonstrated fluid extending from a left pleural effusion between posterior lateral left ribs 8 and 9 into the subcutaneous tissue. Patient Condition at Discharge: Good Plan - Discharge Summary Discharge Rx Participant: No New Discharge Prescriptions: New Amoxic-Pot Clav 875-125Mg [Augmentin 875-125] 1 tab PO Q12HR #20 tablet ALPRAZolam [Xanax] 0.25 mg PO TID PRN #90 tab PRN Reason: Anxiety methylPREDNISolone [Medrol Dose Pack] 4 mg PO DIRECTED #21 pack Metoprolol Tartrate [Lopressor] 25 mg PO BID #60 tab Discontinued predniSONE See Taper PO DAILY traMADol HCl [Ultram] 50 - 100 mg PO QID PRN PRN Reason: Pain Cefuroxime Axetil [Ceftin] 500 mg PO BID #14 tab Etodolac [Lodine] 400 mg PO BID #30 tab Azithromycin [Zithromax] 500 mg PO DAILY No Action Montelukast [Singulair] 10 mg PO HS Tamsulosin HCl [Flomax] 0.4 mg PO HS Meclizine [Antivert] 25 mg PO DAILY Lovastatin [Mevacor] 10 mg PO HS LORazepam [Ativan] 0.5 mg PO HS Ipratropium-Albuterol Nebulize [Duoneb 0.5 mg-3 mg/3 ml Soln] 3 ml INHALATION RT-QID Finasteride [Proscar] 5 mg PO HS Budesonide [Pulmicort] 0.5 mg INHALATION RT-BID Albuterol Inhaler [Ventolin Hfa Inhaler] 2 puff INHALATION RT-Q6H PRN PRN Reason: Shortness Of Breath Omeprazole 20 mg PO DAILY Benzonatate [Benzonatate Perle] 200 mg PO TID Lisinopril [Zestril] 10 mg PO DAILY #0 HYDROcodone/APAP 10-325MG [[place] 10-325] 1 tab PO QID PRN #30 tab PRN Reason: Pain Discharge Medication List Albuterol Inhaler [Ventolin Hfa Inhaler] 2 puff INHALATION RT-Q6H PRN 11/18/17 [ History] Benzonatate [Benzonatate Perle] 200 mg PO TID 11/18/17 [History] Budesonide [Pulmicort] 0.5 mg INHALATION RT-BID 11/18/17 [History] Finasteride [Proscar] 5 mg PO HS 11/18/17 [History] Ipratropium-Albuterol Nebulize [Duoneb 0.5 mg-3 mg/3 ml Soln] 3 ml INHALATION RT -QID 11/18/17 [History] LORazepam [Ativan] 0.5 mg PO HS 11/18/17 [History] Lovastatin [Mevacor] 10 mg PO HS 11/18/17 [History] Meclizine [Antivert] 25 mg PO DAILY 11/18/17 [History] Montelukast [Singulair] 10 mg PO HS 11/18/17 [History] Omeprazole 20 mg PO DAILY 11/18/17 [History] Tamsulosin HCl [Flomax] 0.4 mg PO HS 11/18/17 [History] Lisinopril [Zestril] 10 mg PO DAILY #0 11/26/17 [Rx] HYDROcodone/APAP 10-325MG [[place] 10-325] 1 tab PO QID PRN #30 tab 12/03/17 [Rx] ALPRAZolam [Xanax] 0.25 mg PO TID PRN #90 tab 12/12/17 [Rx] Amoxic-Pot Clav 875-125Mg [Augmentin 875-125] 1 tab PO Q12HR #20 tablet [Rx] methylPREDNISolone [Medrol Dose Pack] 4 mg PO DIRECTED #21 pack 12/12/17 [Rx] Metoprolol Tartrate [Lopressor] 25 mg PO BID #60 tab 12/13/17 [Rx] Follow up Appointment(s)/Referral(s): Khoi Avila MD [STAFF PHYSICIAN] - 01/16/18 9:00 am () [facility], [NON-STAFF] - Matt Moss MD [STAFF PHYSICIAN] - 12/21/17 9:45 am (Sunday. ) Quinton Gary DO [Primary Care Provider] - 12/18/17 5:00 pm (sunday) Patient Instructions/Handouts: A-fib (Atrial Fibrillation) (DC), COPD (Chronic Obstructive Pulmonary Disease) (DC), Pleural Effusion (DC) Activity/Diet/Wound Care/Special Instructions: new lopressor started 12/12/17.
== END 2017-12-13 16:09 | disposition home health service (06) | DRG 871 ==
LOC: EC 07:54 → 6SEL 11:51
PROVIDERS: ADMIT Internal Medicine Sleep Medicine; ATTEND Internal Medicine Sleep Medicine
DX: A41.9 Sepsis, unspecified organism (principal); J18.9 Pneumonia, unspecified organism; J91.8 Pleural effusion in other conditions classified elsewhere; I48.0 Paroxysmal atrial fibrillation; I11.9 Hypertensive heart disease without heart failure; J44.0 Chronic obstructive pulmonary disease with (acute) lower respiratory infection; J44.1 Chronic obstructive pulmonary disease with (acute) exacerbation; E78.5 Hyperlipidemia, unspecified; E87.6 Hypokalemia; F41.9 Anxiety disorder, unspecified; G89.18 Other acute postprocedural pain; H81.09 Meniere's disease, unspecified ear; H91.90 Unspecified hearing loss, unspecified ear; I49.3 Ventricular premature depolarization; J98.01 Acute bronchospasm; N42.9 Disorder of prostate, unspecified; R07.89 Other chest pain; Z79.899 Other long term (current) drug therapy; Z87.891 Personal history of nicotine dependence
CPT/HCPCS: 36415; 71045; 71046; 71260; 80048; 80053; 80202; 82550; 82553; 83036; 83605; 83735; 84484; 85025; 85610; 85730; 87040; 87502; 93005; 93306; 94640; 94760; 96361; 96365; 96366; 96368; 99285

== ENCOUNTER 2017-12-22 08:50 | Inpatient (IN) | payer MEDICARE ==
[2017-12-22] MEDS ORDERED: SODIUM CHLORIDE 0.9% 1,000 ML IV STA (09:01)
[2017-12-22] MEDS ORDERED: KETOROLAC 30 MG/ML 1 ML VIAL IVP STA (09:18)
--- NOTE | 2017-12-22 09:21 | ED ---
SOB HPI - General Chief Complaint: Shortness of Breath Stated Complaint: Diff Breathing Time Seen by Provider: 12/22/17 08:50 Source: patient, family, EMS, RN notes reviewed Mode of arrival: EMS Limitations: no limitations - History of Present Illness Initial Comments: This is a 72-year-old male with a recent history of surgery for a left diaphragmatic hernia who presents by EMS this morning with complaints of shortness of breath this morning also 10/10 left-sided chest wall pain. He additionally has had decreased oral intake. He states that shortness breath or yesterday's had chills since yesterday. No fevers or sweats he currently is on amoxicillin today's last day he's supposed be on a twice a day dosing. The pain came down from 10/10 at 5/10 after he was given fentanyl by EMS personnel. He does he was very anxious apparently with this as improved. He was given a 400 mL of fluid bolus. MD Complaint: shortness of breath - Related Data Home Medications Medication Instructions Recorded Confirmed Albuterol Inhaler [Ventolin Hfa 2 puff INHALATION RT-Q6H PRN 11/18/17 12/06/17 Inhaler] Benzonatate [Benzonatate Perle] 200 mg PO TID 11/18/17 12/06/17 Budesonide [Pulmicort] 0.5 mg INHALATION RT-BID 11/18/17 12/06/17 Finasteride [Proscar] 5 mg PO HS 11/18/17 12/06/17 Ipratropium-Albuterol Nebulize 3 ml INHALATION RT-QID 11/18/17 12/06/17 [Duoneb 0.5 mg-3 mg/3 ml Soln] LORazepam [Ativan] 0.5 mg PO HS 11/18/17 12/06/17 Lovastatin [Mevacor] 10 mg PO HS 11/18/17 12/06/17 Meclizine [Antivert] 25 mg PO DAILY 11/18/17 12/06/17 Montelukast [Singulair] 10 mg PO HS 11/18/17 12/06/17 Omeprazole 20 mg PO DAILY 11/18/17 12/06/17 Tamsulosin HCl [Flomax] 0.4 mg PO HS 11/18/17 12/06/17 Previous Rx's Medication Instructions Recorded Lisinopril [Zestril] 10 mg PO DAILY #0 11/26/17 HYDROcodone/APAP 10-325MG [[place] 1 tab PO QID PRN #30 tab 12/03/17 10-325] ALPRAZolam [Xanax] 0.25 mg PO TID PRN #90 tab 12/12/17 Amoxic-Pot Clav 875-125Mg 1 tab PO Q12HR #20 tablet 12/12/17 [Augmentin 875-125] methylPREDNISolone [Medrol Dose 4 mg PO DIRECTED #21 pack 12/12/17 Pack] Metoprolol Tartrate [Lopressor] 25 mg PO BID #60 tab 12/13/17 Allergies Allergy/AdvReac Type Severity Reaction Status Date / Time No Known Allergies Allergy Verified 12/06/17 08:34 Review of Systems ROS Statement: Those systems with pertinent positive or pertinent negative responses have been documented in the HPI. ROS Other: All systems not noted in ROS Statement are negative. Past Medical History Past Medical History: COPD, Hearing Disorder / Deafness, Hyperlipidemia, Hypertension, Prostate Disorder Additional Past Medical History / Comment(s): emphysema, history of menieres disease History of Any Multi-Drug Resistant Organisms: None Reported Past Surgical History: Hernia Repair, Tonsillectomy Additional Past Surgical History / Comment(s): hernia X2, cyst on hand, right foot pin in great toe. Left thoracotomy closure of diaphragmatic hernia with patch, repair of costochondral dislocation with subsequent lung herniation November 22 2017 Past Anesthesia/Blood Transfusion Reactions: No Reported Reaction Past Psychological History: No Psychological Hx Reported Smoking Status: Former smoker Past Alcohol Use History: None Reported Past Drug Use History: None Reported - Past Family History Mother Family Medical History: Dementia Additional Family Medical History / Comment(s): breast cancer Father Family Medical History: No Reported History General Exam - General Exam Comments Initial Comments: This is a well-developed well-nourished awake alert oriented 3 male Limitations: no limitations General appearance: alert, in no apparent distress Head exam: Present: atraumatic, normocephalic, normal inspection Eye exam: Present: normal appearance, PERRL, EOMI. Absent: scleral icterus, conjunctival injection, periorbital swelling ENT exam: Present: mucous membranes dry Neck exam: Present: normal inspection. Absent: tenderness, meningismus, lymphadenopathy Respiratory exam: Present: rales, chest wall tenderness (Mild chest wall tenderness on the left the incision site appears to be intact no definite wound dehiscence or is some localized erythema.), decreased breath sounds. Absent: respiratory distress, wheezes, rhonchi, stridor Cardiovascular Exam: Present: regular rate, normal rhythm, normal heart sounds. Absent: systolic murmur, diastolic murmur, rubs, gallop, clicks GI/Abdominal exam: Present: soft, normal bowel sounds. Absent: distended, tenderness, guarding, rebound, rigid, bruit, pulsatile mass, hernia Rectal exam: Present: deferred Extremities exam: Present: normal inspection, full ROM, normal capillary refill. Absent: tenderness, pedal edema, joint swelling, calf tenderness Back exam: Present: normal inspection Neurological exam: Present: alert, oriented X3, CN II-XII intact Psychiatric exam: Present: normal affect, normal mood Skin exam: Present: warm, dry, intact, normal color. Absent: rash Course Vital Signs 12/22/17 12/22/17 12/22/17 08:51 08:55 10:05 Temperature 97.8 F Pulse Rate 100 95 Respiratory 18 18 18 Rate Blood Pressure 108/67 117/70 O2 Sat by Pulse 95 100 Oximetry 12/22/17 12/22/17 10:32 10:44 Temperature Pulse Rate 101 H 99 Respiratory Rate Blood Pressure O2 Sat by Pulse Oximetry - Reevaluation(s) Reevaluation #1: 12/22/17 11:02 Patient did require a nebulizer treatment due to dyspnea. Medical Decision Making - Medical Decision Making I did discuss findings with patient family members were present patient will be admitted with consultation by Dr. Moss - Lab Data Result diagrams: 12/22/17 09:00 12/22/17 09:00 Lab Results 12/22/17 12/22/17 12/22/17 Range/Units 09:00 09:00 09:00 WBC 14.3 H (3.8-10.6) k/uL RBC 4.45 (4.30-5.90) m/uL Hgb 13.1 (13.0-17.5) gm/dL Hct 40.6 (39.0-53.0) % MCV 91.2 (80.0-100.0) fL MCH 29.4 (25.0-35.0) pg MCHC 32.2 (31.0-37.0) g/dL RDW 13.1 (11.5-15.5) % Plt Count 384 (150-450) k/uL Neutrophils % 89 % Lymphocytes % 4 % Monocytes % 5 % Eosinophils % 1 % Basophils % 0 % Neutrophils # 12.7 H (1.3-7.7) k/uL Lymphocytes # 0.5 L (1.0-4.8) k/uL Monocytes # 0.7 (0-1.0) k/uL Eosinophils # 0.2 (0-0.7) k/uL Basophils # 0.1 (0-0.2) k/uL PT (9.0-12.0) sec INR (<1.2) APTT (22.0-30.0) sec Sodium 130 L (137-145) mmol/L Potassium 4.5 (3.5-5.1) mmol/L Chloride 97 L (98-107) mmol/L Carbon Dioxide 22 (22-30) mmol/L Anion Gap 11 mmol/L BUN 20 (9-20) mg/dL Creatinine 0.79 (0.66-1.25) mg/dL Est GFR (MDRD) Af Amer >60 (>60 ml/min/1.73 sqM) Est GFR (MDRD) Non-Af >60 (>60 ml/min/1.73 sqM) Glucose 100 H (74-99) mg/dL Calcium 8.9 (8.4-10.2) mg/dL Magnesium 2.0 (1.6-2.3) mg/dL Total Bilirubin 1.2 (0.2-1.3) mg/dL AST 31 (17-59) U/L ALT 30 (21-72) U/L Alkaline Phosphatase 99 (38-126) U/L Total Creatine Kinase 39 L (55-170) U/L CK-MB (CK-2) 1.4 (0.0-2.4) ng/mL CK-MB (CK-2) Rel Index 3.6 Troponin I <0.012 (0.000-0.034) ng/mL NT-Pro-B Natriuret Pep pg/mL Total Protein 6.0 L (6.3-8.2) g/dL Albumin 3.0 L (3.5-5.0) g/dL Influenza Type A RNA (Not Detectd) Influenza Type B (PCR) (Not Detectd) 12/22/17 12/22/17 12/22/17 Range/Units 09:00 09:00 09:00 WBC (3.8-10.6) k/uL RBC (4.30-5.90) m/uL Hgb (13.0-17.5) gm/dL Hct (39.0-53.0) % MCV (80.0-100.0) fL MCH (25.0-35.0) pg MCHC (31.0-37.0) g/dL RDW (11.5-15.5) % Plt Count (150-450) k/uL Neutrophils % % Lymphocytes % % Monocytes % % Eosinophils % % Basophils % % Neutrophils # (1.3-7.7) k/uL Lymphocytes # (1.0-4.8) k/uL Monocytes # (0-1.0) k/uL Eosinophils # (0-0.7) k/uL Basophils # (0-0.2) k/uL PT 10.2 (9.0-12.0) sec INR 1.0 (<1.2) APTT 23.3 (22.0-30.0) sec Sodium (137-145) mmol/L Potassium (3.5-5.1) mmol/L Chloride (98-107) mmol/L Carbon Dioxide (22-30) mmol/L Anion Gap mmol/L BUN (9-20) mg/dL Creatinine (0.66-1.25) mg/dL Est GFR (MDRD) Af Amer (>60 ml/min/1.73 sqM) Est GFR (MDRD) Non-Af (>60 ml/min/1.73 sqM) Glucose (74-99) mg/dL Calcium (8.4-10.2) mg/dL Magnesium (1.6-2.3) mg/dL Total Bilirubin (0.2-1.3) mg/dL AST (17-59) U/L ALT (21-72) U/L Alkaline Phosphatase (38-126) U/L Total Creatine Kinase (55-170) U/L CK-MB (CK-2) (0.0-2.4) ng/mL CK-MB (CK-2) Rel Index Troponin I (0.000-0.034) ng/mL NT-Pro-B Natriuret Pep 269 pg/mL Total Protein (6.3-8.2) g/dL Albumin (3.5-5.0) g/dL Influenza Type A RNA Not Detected (Not Detectd) Influenza Type B (PCR) Not Detected (Not Detectd) - EKG Data -: EKG Interpreted by Me (Sinus rhythm 99 heart rate OR interval 134 QRS 92 QT since QTC of 344/441 n) - Radiology Data Radiology results: report reviewed (I did review the imaging and reports there is evidence of a left-sided pleural based mass which does appear to be enlarging.), image reviewed Disposition Clinical Impression: Bronchospasm, Postoperative pain, Pleural mass Disposition: ADMITTED IP TO THIS HOSP Condition: Stable Referrals: Quinton Gary DO [Primary Care Provider] - 1-2 days
[2017-12-22 09:36] LABS: Basophils # (A) 0.1 k/uL (0-0.2); Basophils % (A) 0 %; Eosinophils # (A) 0.2 k/uL (0-0.7); Eosinophils % (A) 1 %; HCT 40.6 % (39.0-53.0); HGB 13.1 gm/dL (13.0-17.5); Lymphocytes # (A) 0.5 k/uL (1.0-4.8); Lymphocytes % (A) 4 %; MCH 29.4 pg (25.0-35.0); MCHC 32.2 g/dL (31.0-37.0); MCV 91.2 fL (80.0-100.0); Mean Platelet Volume 6.4; Monocytes # (A) 0.7 k/uL (0-1.0); Monocytes % (A) 5 %; Neutrophils # (A) 12.7 k/uL (1.3-7.7); Neutrophils % (A) 89 %; Platelet Count 384 k/uL (150-450); RBC 4.45 m/uL (4.30-5.90); RDW 13.1 % (11.5-15.5); WBC 14.3 k/uL (3.8-10.6)
[2017-12-22 09:41] LABS: Partial Thromboplastin Time 23.3 sec (22.0-30.0); Prothrombin Time 10.2 sec (9.0-12.0)
--- NOTE | 2017-12-22 09:46 | XR ---
EXAMINATION TYPE: XR chest 2V DATE OF EXAM: 12/22/2017 HISTORY: difficulty breathing. REFERENCE: Previous study dated 12/11/2017. FINDINGS: Lung volumes are prominent. The heart is mildly prominent. Pleural-based mass on the left w hich previously measured 4.9 x 3.3 cm now measures 7 x 3.3 cm. Pleural spaces otherwise appear clear. The lungs are otherwise clear. IMPRESSION: 1. COPD. 2. MILD CARDIOMEGALY. 3. ENLARGING LEFT-SIDED PLEURAL-BASED MASS.
[2017-12-22 09:48] LABS: Anion Gap 11 mmol/L; Calcium 8.9 mg/dL (8.4-10.2); Carbon Dioxide 22 mmol/L (22-30); Chloride 97 mmol/L (98-107); Glucose 100 mg/dL (74-99); Sodium 130 mmol/L (137-145); Total Bilirubin 1.2 mg/dL (0.2-1.3)
[2017-12-22 09:50] LABS: AST 31 U/L (17-59); Blood Urea Nitrogen 20 mg/dL (9-20); Potassium 4.5 mmol/L (3.5-5.1)
[2017-12-22 09:51] LABS: ALT 30 U/L (21-72); Alkaline Phosphatase 99 U/L (38-126)
[2017-12-22] MEDS ORDERED: HYDROmorphone 0.5 MG/0.5 ML SYRINGE IVP STA (10:05)
[2017-12-22 10:06] LABS: Creatine Kinase 39 U/L (55-170)
[2017-12-22 10:18] LABS: Creatine Kinase MB 1.4 ng/mL (0.0-2.4); Troponin I <0.012 ng/mL (0.000-0.034)
[2017-12-22] MEDS ORDERED: IPRATROPIUM-ALBUTEROL 3 ML NEB INHALATION STA (10:22)
[2017-12-22] MEDS ORDERED: NALOXONE 0.4 MG/ML 1 ML VIAL IV PRN (11:03)
[2017-12-22] MEDS ORDERED: ALPRAZolam 0.25 MG TAB PO PRN (11:08)
[2017-12-22] MEDS ORDERED: METHYLPREDNISOLONE 4 MG PO SCH (11:15)
[2017-12-22] MEDS ORDERED: SODIUM CHLORIDE 0.9% 1,000 ML IV ONE (11:21)
[2017-12-22] MEDS ORDERED: SODIUM CHLORIDE 0.9% 500 ML IV ONE ×2 (12:12→12:19)
[2017-12-22] MEDS ORDERED: PIPERACILLIN-TAZOBACTAM 3.375 GM in DEXTROSE/WATER 1 50ML.BAG IVPB STA (13:05)
--- NOTE | 2017-12-22 14:03 | CT ---
EXAMINATION TYPE: CT chest wo con DATE OF EXAM: 12/22/2017 COMPARISON: Previous study dated 12/06/2017 HISTORY: Shortness of breath CT DLP: 343.9 mGycm. Automated Exposure Control for Dose Reduction was Utilized. TECHNIQUE: CT scan of the thorax is performed without IV contrast. FINDINGS: There are emphysematous changes throughout the lungs. There is patchy groundglass opacity t hroughout the lungs. This has worsened from previous. This may represent alveolitis. Congestive heart failure could look similar. There is a left-sided pleural effusion which is herniated between the ribs on the left into the subcu taneous soft tissues. This is incompletely imaged on today's examination. There is no significant axillary, mediastinal or hilar adenopathy. There is no pericardial fluid. The heart is mildly enlarged. There is a small hiatal hernia. Visualized portions of the upper abdomen are unremarkable. There is hypertrophic spondylosis within the spine. IMPRESSION: 1. PERSISTENT LEFT PLEURAL EFFUSION HERNIATED BETWEEN THE RIBS ON THE LEFT INTO THE SOFT TISSUES. ON THIS EXAMINATION AND HAS BEEN INCOMPLETELY VISUALIZED. 2. COPD. 3. INCREASED GROUNDGLASS OPACITY THROUGHOUT BOTH LUNGS WHICH MAY REPRESENT ALVEOLITIS, PNEUMONITIS OR HEART FAILURE. PLEASE CORRELATE CLINICALLY. 3. MILD CARDIOMEGALY. 4. SMALL HIATAL HERNIA. 5. DEGENERATIVE CHANGES WITHIN THE SPINE.
[2017-12-22] MEDS: IPRATROPIUM-ALBUTEROL 3 ML NEB INHALATION SCH ×2 (14:19→19:52)
[2017-12-22] MEDS ORDERED: MORPHINE SULFATE 4 MG/ML SYRINGE IVP PRN (14:23)
--- NOTE | 2017-12-22 14:25 | P.CNPUL ---
History of Present Illness Consult date: 12/22/17 Reason for consult: dyspnea, cough, chest pain, COPD Chief complaint: chest pain and tightness on the left side posterior laterally 1-2 day dura History of present illness: Mr. Cheatham is a 72-year-old male well-known to me patient has a history of end- stage lung disease second to severe COPD emphysema patient has been doing relatively well since discharged recently after bilateral pneumonia treatment however started having recurrence of pain about 2 days ago patient was seen in the office yesterday his pain was minimal at that time he couldn't tolerate the [place] due to his the confusion and apneic episode he had some crackles present at the bases otherwise hemodynamic status was stable patient had at that time noted to have on outpatient setting low blood pressure however they did resolve after discontinuation of Lopressor patient was stable throughout the day however and of the day in the evening started having chest pain predominantly on the left side and dental pain becomes 10 out of 10 in addition subsequently patient started developing shortness of breath he started coughing with very thick tenacious yellowish-green mucus sputum and developed shortness of breath he was brought into the emergency department he was found to be did require a small bolus of crystalloid with with normal saline with the stabilization of blood pressure patient has been admitted into the hospital I've discussed with the emergency department service to consult Dr. Avila as the chest x-ray performed today revealed density on the left side has progressed in size from 4 cm to 7 cm in addition to that I will ask them to obtain a computed tomography scan of the chest which can be done without contrast. Patient is well-known to me he has been hospitalized and later part of September for acute COPD exacerbation and early October he was found to have a perforated left diaphragm which was repaired by Dr. Avila patient subsequently was rehospitalized 2 times with pneumonia at [facility] was eventually discharged in stable condition after extensive IV antibiotics patient was evaluated by infectious disease services Dr. Ovalles at that time as well recommended patient to be treated with Augmentin on outpatient basis Review of Systems All systems: negative Past Medical History Past Medical History: COPD, Hearing Disorder / Deafness, Hyperlipidemia, Hypertension, Prostate Disorder Additional Past Medical History / Comment(s): emphysema, history of menieres disease History of Any Multi-Drug Resistant Organisms: None Reported Past Surgical History: Hernia Repair, Tonsillectomy Additional Past Surgical History / Comment(s): hernia X2, cyst on hand, right foot pin in great toe. Left thoracotomy closure of diaphragmatic hernia with patch, repair of costochondral dislocation with subsequent lung herniation November 22 2017 Past Anesthesia/Blood Transfusion Reactions: No Reported Reaction Past Psychological History: No Psychological Hx Reported Additional Psychological History / Comment(s): . Retired from the [employer]. experience with the [employer], no international travel. No animal exposures Smoking Status: Former smoker Past Alcohol Use History: None Reported Additional Past Alcohol Use History / Comment(s): Pt started smoking in 1963 and quit in 2012. Past Drug Use History: None Reported - Past Family History Mother Family Medical History: Dementia Additional Family Medical History / Comment(s): breast cancer Father Family Medical History: No Reported History Medications and Allergies Home Medications Medication Instructions Recorded Confirmed Type Albuterol Inhaler [Ventolin Hfa 2 puff INHALATION RT-Q6H PRN 11/18/17 12/22/17 History Inhaler] Benzonatate [Benzonatate Perle] 200 mg PO TID@0900,1600,2200 11/18/17 12/22/17 History Budesonide [Pulmicort] 0.5 mg INHALATION RT-BID 11/18/17 12/22/17 History Finasteride [Proscar] 5 mg PO HS 11/18/17 12/22/17 History Ipratropium-Albuterol Nebulize 3 ml INHALATION RT-QID 11/18/17 12/22/17 History [Duoneb 0.5 mg-3 mg/3 ml Soln] Lovastatin [Mevacor] 10 mg PO HS 11/18/17 12/22/17 History Meclizine [Antivert] 25 mg PO DAILY 11/18/17 12/22/17 History Montelukast [Singulair] 10 mg PO HS 11/18/17 12/22/17 History Omeprazole 20 mg PO DAILY 11/18/17 12/22/17 History Tamsulosin HCl [Flomax] 0.4 mg PO HS 11/18/17 12/22/17 History Lisinopril [Zestril] 10 mg PO DAILY #0 11/26/17 12/22/17 Rx HYDROcodone/APAP 10-325MG [[place] 1 tab PO QID PRN #30 tab 12/03/17 12/22/17 Rx 10-325] Allergies Allergy/AdvReac Type Severity Reaction Status Date / Time No Known Allergies Allergy Verified 12/22/17 11:30 Physical Exam Vitals: Vital Signs Temp Pulse Resp BP Pulse Ox 12/22/17 13:09 90 18 118/74 98 12/22/17 12:53 91 18 103/71 94 L 12/22/17 12:35 91 18 110/69 99 12/22/17 12:00 88 15 85/53 98 12/22/17 11:24 88 16 91/47 98 12/22/17 11:19 90 18 85/49 98 12/22/17 11:00 100 16 74/49 98 12/22/17 10:44 99 12/22/17 10:32 101 H 12/22/17 10:05 95 18 117/70 100 12/22/17 08:55 18 12/22/17 08:51 97.8 F 100 18 108/67 95 Intake and Output 12/21/17 12/22/17 12/22/17 22:59 06:59 14:59 Other: # Voids 1 Weight 87.09 kg Patient Weight 12/23/17 06:59 Weight 87.09 kg This is a well-developed well-nourished awake alert oriented 3 male Limitations: no limitations General appearance: alert, in no apparent distress Head exam: Present: atraumatic, normocephalic, normal inspection Eye exam: Present: normal appearance, PERRL, EOMI. Absent: scleral icterus, conjunctival injection, periorbital swelling ENT exam: Present: mucous membranes dry Neck exam: Present: normal inspection. Absent: tenderness, meningismus, lymphadenopathy Respiratory exam: Present: Bilateral basal rales noted with overall poor air entry, no wheezing are present, chest wall tenderness, noted mild chest wall tenderness on the left the incision site appears to be intact no definite wound dehiscence mild some localized erythema noted without any dischargesignificant respiratory distress, wheezes, rhonchi, stridor noted Cardiovascular Exam: Present: regular rate, normal rhythm, normal heart sounds. Absent: systolic murmur, diastolic murmur, rubs, gallop, clicks GI/Abdominal exam: Present: soft, normal bowel sounds. Absent: distended, tenderness, guarding, rebound, rigid, bruit, pulsatile mass, hernia Rectal exam: Present: deferred Extremities exam: Present: normal inspection, full ROM, normal capillary refill. Absent: tenderness, pedal edema, joint swelling, calf tenderness Back exam: Present: normal inspection Neurological exam: Present: alert, oriented X3, CN II-XII intact Psychiatric exam: Present: normal affect, normal mood Skin exam: Present: warm, dry, intact, normal color. Absent: rash Results - Laboratory Findings CBC and BMP: 12/22/17 09:00 12/22/17 09:00 PT/INR, D-dimer PT 10.2 sec (9.0-12.0) 12/22/17 09:00 INR 1.0 (<1.2) 12/22/17 09:00 Abnormal lab findings: Abnormal Labs 12/22/17 12/22/17 12/22/17 09:00 09:00 09:00 WBC 14.3 H Neutrophils # 12.7 H Lymphocytes # 0.5 L Sodium 130 L Chloride 97 L Glucose 100 H Total Creatine Kinase 39 L Total Protein 6.0 L Albumin 3.0 L - Diagnostic Findings Chest x-ray: report reviewed, image reviewed (The left-sided loculated fluid giving appearance of mass has progressed in size from 4 cm to 7 cm overall wet shape I suspect loculated fluid collection which is pleural based) Assessment and Plan Assessment: Left-sided severe postoperative pleuritic chest pain Left-sided loculated pleural effusion appearing as a lung mass which is pleural based Low-grade Sirs early sepsis cannot be excluded with the presentation with hypotension did respond with crystalloids Severe COPD Recent perforated left diaphragm with fracture of costochondral junction requiring repair Hypertension hypertensive cardiovascular disease Generalized anxiety disorder History of paroxysmal atrial fibrillation couldn't tolerate Lopressor cardiology has evaluated him in the past not considered to be a candidate for anticoagulation Plan: Gentle rehydration Bronchodilators Hold on steroids agree with initiation of antibiotics with ID service has been consulted Consult thoracic surgery Dr. Avila for evaluation of pleural based loculated effusion/lung mass A computed tomography scan of the chest is being ordered May resume home medications including breathing treatments maintain patient on DVT and peptic ulcer disease prophylaxis increase activity as tolerated further recommendations pending plan of care as per clinical response of the patient Time with Patient: Greater than 30
[2017-12-22] MEDS: MORPHINE SULFATE 4 MG/ML SYRINGE IVP PRN (14:36)
[2017-12-22] MEDS: BENZONATATE 100 MG CAP PO SCH ×2 (14:37→21:03)
--- NOTE | 2017-12-22 19:16 | HP ---
HISTORY AND PHYSICAL DATE OF SERVICE: 12/22/2017. CHIEF COMPLAINT: Chest pain and tightness left side posterior and laterally. BRIEF HISTORY ON THIS PATIENT: A 72-year-old male patient with history of end-stage lung disease secondary to COPD, was recently discharged after bilateral pneumonia treatment, presents to ED with a complaint of chest pain that started about 2 days ago. The patient was seen in the primary care physician's office, at which time his pain was minimal and with some confusion. Patient's medications were adjusted, which did improve symptoms. The day of admission, patient started getting chest pain again, so decided to come to the ER. He has a past medical history significant for COPD, history of deafness, hypertension, hyperlipidemia, history of Meniere disease. PAST SURGICAL HISTORY: Hernia repair, tonsillectomy, right foot pain in great toe, left thoracotomy for closure of diaphragmatic hernia with a patch. SOCIAL HISTORY: Patient has no history of smoking or alcohol abuse. FAMILY HISTORY: Significant for dementia in mother. He mentioned breast cancer in mother. The patient has no known drug allergies. MEDICATIONS: Patient is on: 1. Zestril 10 mg daily. 2. [place] 10/325 1 p.o. q.i.d. 3. Xanax 0.25 mg p.o. t.i.d. p.r.n. 4. Augmentin 875/12, 1 tablet q.12 hours. 5. Medrol Dosepak as directed. 6. Lopressor 25 mg b.i.d. 7. Ativan 0.5 mg p.o. q.h.s. 8. Mevacor 10 mg p.o. q.h.s. 9. Antivert 25 mg daily. 10.Singulair 10 mg daily. 11.Omeprazole 20 mg daily. 12.Flomax 0.4 mg daily. REVIEW OF SYSTEMS: CONSTITUTIONAL: Denies fever and chills. HEENT: No hearing or vision loss. LUNGS: Shortness of breath as described above. CARDIOVASCULAR: Chest pain as described above. GI/ABDOMEN: No nausea, vomiting, diarrhea. GENITOURINARY: No hematuria. No dysuria. EXTREMITIES: No swelling or redness of the joints or tenderness. CENTRAL NERVOUS SYSTEM: Denies any dizziness, lightheadedness or any weakness. LYMPHATICS: No lymphadenopathy. HEMATOLOGICAL: No anemia. No bleeding or coagulation disorder. ENDOCRINE: No polyuria or polydipsia. Rest of 14-point review of system is unremarkable. PHYSICAL EXAMINATION: The patient's vital signs: Temperature of 97.8, pulse 100, respirations 18, blood pressure 108/67, O2 saturation 95%. GENERAL: Patient is awake, alert, oriented. He is in no acute distress. HEENT: Atraumatic, normocephalic. Pupils equal and reactive to light. Extraocular movements intact. Buccal mucosa is fair. Neck is supple. No goiter, lymphadenopathy. JVD is negative. No carotid bruit heard. LUNGS: The patient has rales and scattered wheezes, bilateral lower lung pham. Patient has some mild chest wall tenderness on the incision on the left side with no wound dehiscence. Heart is regular rate and rhythm without any murmurs, gallop rhythm. ABDOMEN/GI: Abdomen soft and nontender, nondistended. Bowel sounds positive. EXTREMITIES: No edema, clubbing or cyanosis. Pulses are palpable, 2+. NEUROLOGICAL: Cranial nerves 2-12 grossly intact. No gross motor or sensory deficit. PSYCHIATRIC: Patient is awake, alert, oriented. He has normal affect and mood. Skin is warm, dry and intact. LABS: CBC: White blood count 14.3, hemoglobin 13.1, hematocrit 40.6 and platelet count of 384. Chemical profile: Sodium 130, potassium 4.5, chloride 97, bicarb 22, BUN 20, creatinine 0.7, glucose 100. EKG shows sinus rhythm. Chest x-ray: A left-sided pleural mass, appears to be enlarging. ASSESSMENT: 1. Left-sided severe postoperative pleuritic chest pain. 2. Left-sided loculated pleural effusion along with a lung mass which is pleural- based. 3. Low-grade systemic inflammatory response syndrome, early sepsis based on hypotension criteria. 4. Severe chronic obstructive pulmonary disease. 5. Recent perforated left hemidiaphragm with a fracture of costochondral junction requiring repair. 6. Hypertension with hypertensive cardiovascular disease. 7. Generalized anxiety disorder. 8. History of paroxysmal atrial fibrillation. Plan is to admit the patient to medical floor, start the patient on IV fluids, start on bronchodilator therapy. Plan is to hold off on steroids, start on IV antibiotics. ID is consulted. Cardiothoracic Surgery is on board for further evaluation of loculated effusion and lung mass. A CT of the chest is ordered. Plan is to resume all home medications. Further recommendations after patient is seen by all consultants. MMODL / IJN: [id number] /
[2017-12-22] MEDS: BUDESONIDE 0.5 MG/2 ML NEBU INHALATION SCH (19:52)
[2017-12-22] MEDS ORDERED: METOPROLOL TARTRATE 25 MG TAB PO SCH (21:00)
[2017-12-22] MEDS ORDERED: AMOXIC-POT CLAV 875-125MG 1 EACH TAB PO SCH (21:00)
[2017-12-22] MEDS ORDERED: LORazepam 0.5 MG TAB PO SCH (21:00)
[2017-12-22] MEDS: TAMSULOSIN 0.4 MG CAP.ER.24H PO SCH (21:02)
[2017-12-22] MEDS: FINASTERIDE 5 MG TAB PO SCH (21:02)
[2017-12-22] MEDS: ATORVASTATIN 10 MG TAB PO SCH (21:02)
[2017-12-22] MEDS: MONTELUKAST 10 MG TAB PO SCH (21:03)
[2017-12-22] MEDS: HYDROcodone/APAP 10-325MG 1 EACH TAB PO PRN (23:23)
[2017-12-23 03:23] LABS: Basophils # (A) 0.1 k/uL (0-0.2); Basophils % (A) 1 %; Eosinophils # (A) 0.2 k/uL (0-0.7); Eosinophils % (A) 1 %; HCT 33.3 % (39.0-53.0); HGB 10.2 gm/dL (13.0-17.5); Lymphocytes # (A) 0.8 k/uL (1.0-4.8); Lymphocytes % (A) 8 %; MCHC 30.6 g/dL (31.0-37.0); Mean Platelet Volume 6.4; Monocytes # (A) 0.7 k/uL (0-1.0); Monocytes % (A) 7 %; Neutrophils # (A) 8.7 k/uL (1.3-7.7); Neutrophils % (A) 82 %; Platelet Count 340 k/uL (150-450); RBC 3.51 m/uL (4.30-5.90); RDW 13.4 % (11.5-15.5); WBC 10.6 k/uL (3.8-10.6)
[2017-12-23 03:36] LABS: Anion Gap 8 mmol/L; Blood Urea Nitrogen 16 mg/dL (9-20); Calcium 8.2 mg/dL (8.4-10.2); Carbon Dioxide 21 mmol/L (22-30); Chloride 102 mmol/L (98-107); Glucose 106 mg/dL (74-99); Potassium 4.4 mmol/L (3.5-5.1); Sodium 131 mmol/L (137-145)
[2017-12-23] MEDS: HYDROcodone/APAP 10-325MG 1 EACH TAB PO PRN (05:28)
[2017-12-23] MEDS: BENZONATATE 100 MG CAP PO SCH ×3 (07:50→21:15)
[2017-12-23] MEDS: LISINOPRIL 10 MG TAB PO SCH (07:50)
[2017-12-23] MEDS: PANTOPRAZOLE 40 MG TABLET PO SCH (07:51)
[2017-12-23] MEDS: MECLIZINE 25 MG TAB PO SCH (07:51)
[2017-12-23] MEDS: BUDESONIDE 0.5 MG/2 ML NEBU INHALATION SCH ×2 (08:01→20:14)
[2017-12-23] MEDS: IPRATROPIUM-ALBUTEROL 3 ML NEB INHALATION SCH ×4 (08:01→20:14)
[2017-12-23] MEDS ORDERED: VANCOMYCIN IV PER PHARMACY 1 EACH MISC MISCELLANE PRN (08:21)
--- NOTE | 2017-12-23 08:24 | P.CONS ---
History of Present Illness - Reason for Consult Consult date: 12/22/17 - Chief Complaint Left chest pain and shortness of breath - History of Present Illness Pleasant 72-year-old male presents to Hospital for significant and ongoing pain. This pleasant gentleman relates that in early October he was having significant difficulty with severe cough related to COPD and underlying infection. His related that he coughed so hard he caused a costochondral dislocation as well as a left diaphragmatic rupture with herniation. He was evaluated by Dr. Avila to cardiothoracic surgery was taken to the operating room where a thoracotomy was performed for appear of the diaphragm with mesh as well as repair of the costochondral dislocation. Postoperatively the patient was doing relatively well and was sent home on 11/26/2017. In home setting was doing relatively well. Over significant difficulties was more cough his pain became uncontrolled presented back to the emergency center and was admitted earlier in November. The patient again improved and has been home recovering further but then again developed severe pain to the left chest. Follow-up computed tomography scan has been performed in the emergency center and there is a significant increase in the amount of fluid that is outside of the pleural space into the tissue of the chest. This appears to be causing him severe pain he subsequently is admitted. Infectious disease consult for antibiotic therapy. Review of Systems HEENT:Denies headache or acute visual change. Denies sinus or mouth discomforts. Denies neck stiffness or pain. Denies significant oral cavity pain. Denies difficulty on swallowing. Lungs: He has baseline shortness of breath cough is improved ,severe chest wall pain is improved with narcotic Cardiovascular: Denies orthopnea, worsening dyspnea on exertion, or syncope Gastrointestinal:Denies nausea, vomiting, diarrhea, constipation, hematemesis, melena, hematochezia. No no significant change of bowel habit noticed. Musculoskeletal: denies significant myalgias or arthralgias. No new joint swelling. Denies new back pain. Skin: Denies new rash or lesions. No new ulcers or wounds are related.. Neuro: Denies headache or visual change. Denies any new onset weakness or difficulty with ambulation. Denies falls or seizures. Psychiatric:Denies anxiety or depression. Endocrine: Denies significant fatigue, denies significant weight loss or weight gain. Past Medical History Past Medical History: COPD, Hearing Disorder / Deafness, Hyperlipidemia, Hypertension, Prostate Disorder Additional Past Medical History / Comment(s): emphysema, history of menieres disease History of Any Multi-Drug Resistant Organisms: None Reported Past Surgical History: Hernia Repair, Tonsillectomy Additional Past Surgical History / Comment(s): hernia X2, cyst on hand, right foot pin in great toe. Left thoracotomy closure of diaphragmatic hernia with patch, repair of costochondral dislocation with subsequent lung herniation November 22 2017 Past Anesthesia/Blood Transfusion Reactions: No Reported Reaction Past Psychological History: No Psychological Hx Reported Additional Psychological History / Comment(s): . Retired from the [employer]. experience with the [employer], no international travel. No animal exposures Smoking Status: Former smoker Past Alcohol Use History: None Reported Additional Past Alcohol Use History / Comment(s): Pt started smoking in 1963 and quit in 2012. Past Drug Use History: None Reported - Past Family History Mother Family Medical History: Dementia Additional Family Medical History / Comment(s): breast cancer Father Family Medical History: No Reported History Medications and Allergies Home Medications and Allergies Comment(s): Current Medications Hydrocodone Bitart/Acetaminophen (Mamou 10) 1 each PO QID PRN PRN Reason: moderate Pain Last Admin: 12/23/17 05:28 Dose: 1 each Albuterol/Ipratropium (Duoneb 0.5 Mg-3 Mg/3 Ml Soln) 3 ml INHALATION RT-QID [facility], [facility] Last Admin: 12/23/17 08:01 Dose: 3 ml Atorvastatin Calcium (Lipitor) 10 mg PO [facility] Last Admin: 12/22/17 21:02 Dose: 10 mg Benzonatate (Tessalon Perles) 200 mg PO TID [facility], [facility]1983 Last Admin: 12/23/17 07:50 Dose: 200 mg Budesonide (Pulmicort) 0.5 mg INHALATION RT-BID [facility], [facility] Last Admin: 12/23/17 08:01 Dose: 0.5 mg Finasteride (Proscar) 5 mg PO [facility] Last Admin: 12/22/17 21:02 Dose: 5 mg Lisinopril (Zestril) 10 mg PO DAILY [facility], [facility] Last Admin: 12/23/17 07:50 Dose: 10 mg Meclizine HCl (Antivert) 25 mg PO DAILY [facility] Last Admin: 12/23/17 07:51 Dose: 25 mg Montelukast Sodium (Singulair) 10 mg PO [facility] Last Admin: 12/22/17 21:03 Dose: 10 mg Morphine Sulfate (Morphine Sulfate (Inj)) 4 mg IVP Q6HR PRN PRN Reason: Severe Pain Last Admin: 12/22/17 14:36 Dose: 4 mg Naloxone HCl (Narcan) 0.2 mg IV Q2M PRN PRN Reason: Opioid Reversal Pantoprazole Sodium (Protonix) 40 mg PO DAILY [facility] Last Admin: 12/23/17 07:51 Dose: 40 mg Tamsulosin HCl (Flomax) 0.4 mg PO [facility] Last Admin: 12/22/17 21:02 Dose: 0.4 mg Home Medications Medication Instructions Recorded Confirmed Type Albuterol Inhaler [Ventolin Hfa 2 puff INHALATION RT-Q6H PRN 11/18/17 12/22/17 History Inhaler] Benzonatate [Benzonatate Perle] 200 mg PO TID@0900,1600,2200 11/18/17 12/22/17 History Budesonide [Pulmicort] 0.5 mg INHALATION RT-BID 11/18/17 12/22/17 History Finasteride [Proscar] 5 mg PO 11/18/17 12/22/17 History Ipratropium-Albuterol Nebulize 3 ml INHALATION RT-QID 11/18/17 12/22/17 History [Duoneb 0.5 mg-3 mg/3 ml Soln] Lovastatin [Mevacor] 10 mg PO 11/18/17 12/22/17 History Meclizine [Antivert] 25 mg PO DAILY 11/18/17 12/22/17 History Montelukast [Singulair] 10 mg PO 11/18/17 12/22/17 History Omeprazole 20 mg PO DAILY 11/18/17 12/22/17 History Tamsulosin HCl [Flomax] 0.4 mg PO 11/18/17 12/22/17 History Lisinopril [Zestril] 10 mg PO DAILY #0 11/26/17 12/22/17 Rx HYDROcodone/APAP 10-325MG [Mamou 1 tab PO QID PRN #30 tab 12/03/17 12/22/17 Rx 10-325] Allergies Allergy/AdvReac Type Severity Reaction Status Date / Time No Known Allergies Allergy Verified 12/22/17 11:30 Physical Exam Vitals: Vital Signs Temp Pulse Pulse Resp BP BP Pulse Ox 12/23/17 08:02 100 12/23/17 06:01 99.7 F H 92 20 115/66 94 L 12/22/17 23:15 102 F H 128 H 22 98/66 90 L 12/22/17 20:09 110 H 12/22/17 19:53 110 H 12/22/17 15:14 97 110/67 12/22/17 14:32 100 12/22/17 14:19 104 H 12/22/17 14:00 97.0 F L 119 H 16 105/65 94 L 12/22/17 13:09 90 18 118/74 98 12/22/17 12:53 91 18 103/71 94 L 12/22/17 12:35 91 18 110/69 99 12/22/17 12:00 88 15 85/53 98 12/22/17 11:24 88 16 91/47 98 12/22/17 11:19 90 18 85/49 98 12/22/17 11:00 100 16 74/49 98 12/22/17 10:44 99 12/22/17 10:32 101 H 12/22/17 10:05 95 18 117/70 100 12/22/17 08:55 18 12/22/17 08:51 97.8 F 100 18 108/67 95 Intake and Output 12/22/17 12/23/17 12/23/17 22:59 06:59 14:59 Intake Total 400 100 Balance 400 100 Intake: Oral 400 100 Other: Voiding Method Toilet Toilet Urinal Urinal # Voids 1 1 Pleasant 72-year-old gentleman who relates he is much more comfortable now than 24 hours ago. HEENT: Anicteric conjunctiva are pink and moist nasal mucosa grossly intact without significant lesions, there is no thrush. Neck: The neck is supple without significant lymphadenopathy or thyromegaly. Lungs: They're symmetrical air entry there are crackles at the left base but no britney bronchial sounds no dullness or egophony. Is able to take good deep breaths with only minimal discomfort and does not have significant coughing with a deep breath. Heart: Irregular with an audible S1 and S2 without S4. There is no significant murmur click or rub, PMI was nondisplaced. Abdomen: Positive bowel sounds soft and nontender without palpable masses or organomegaly. There was no guarding or rebound. Extremities: The upper extremities have excellent pulses they are symmetric, no significant petechiae or telangiectasia. No splinter hemorrhages were noted. The lower extremities are free from significant edema. The peripheral pulses were 2+ and symmetric. Neuro: Awake alert oriented to person place and time. There are no acute new gross focal sensory motor deficits. Surgical wound to the left chest in the thoracotomy position is well-healed however there is no dense erythema on the chest wall as well as increasing amount of fluctuance to the site. It is quite tender to touch. Results CBC & Chem 7: 12/23/17 03:09 12/23/17 03:09 Labs: Abnormal Lab Results - Last 24 Hours (Table) 12/22/17 12/22/17 12/22/17 Range/Units 09:00 09:00 09:00 WBC 14.3 H (3.8-10.6) k/uL RBC (4.30-5.90) m/uL Hgb (13.0-17.5) gm/dL Hct (39.0-53.0) % MCHC (31.0-37.0) g/dL Neutrophils # 12.7 H (1.3-7.7) k/uL Lymphocytes # 0.5 L (1.0-4.8) k/uL Sodium 130 L (137-145) mmol/L Chloride 97 L (98-107) mmol/L Carbon Dioxide (22-30) mmol/L Glucose 100 H (74-99) mg/dL Calcium (8.4-10.2) mg/dL Total Creatine Kinase 39 L (55-170) U/L Total Protein 6.0 L (6.3-8.2) g/dL Albumin 3.0 L (3.5-5.0) g/dL 12/23/17 12/23/17 Range/Units 03:09 03:09 WBC (3.8-10.6) k/uL RBC 3.51 L (4.30-5.90) m/uL Hgb 10.2 L (13.0-17.5) gm/dL Hct 33.3 L (39.0-53.0) % MCHC 30.6 L (31.0-37.0) g/dL Neutrophils # 8.7 H (1.3-7.7) k/uL Lymphocytes # 0.8 L (1.0-4.8) k/uL Sodium 131 L (137-145) mmol/L Chloride (98-107) mmol/L Carbon Dioxide 21 L (22-30) mmol/L Glucose 106 H (74-99) mg/dL Calcium 8.2 L (8.4-10.2) mg/dL Total Creatine Kinase (55-170) U/L Total Protein (6.3-8.2) g/dL Albumin (3.5-5.0) g/dL Laboratory Results WBC 10.6 k/uL (3.8-10.6) 12/23/17 03:09 RBC 3.51 m/uL (4.30-5.90) L 12/23/17 03:09 Hgb 10.2 gm/dL (13.0-17.5) L 12/23/17 03:09 Hct 33.3 % (39.0-53.0) L 12/23/17 03:09 MCV 95.0 fL (80.0-100.0) 12/23/17 03:09 MCH 29.0 pg (25.0-35.0) 12/23/17 03:09 MCHC 30.6 g/dL (31.0-37.0) L 12/23/17 03:09 RDW 13.4 % (11.5-15.5) 12/23/17 03:09 Plt Count 340 k/uL (150-450) 12/23/17 03:09 Neutrophils % 82 % 12/23/17 03:09 Lymphocytes % 8 % 12/23/17 03:09 Monocytes % 7 % 12/23/17 03:09 Eosinophils % 1 % 12/23/17 03:09 Basophils % 1 % 12/23/17 03:09 Neutrophils # 8.7 k/uL (1.3-7.7) H 12/23/17 03:09 Lymphocytes # 0.8 k/uL (1.0-4.8) L 12/23/17 03:09 Monocytes # 0.7 k/uL (0-1.0) 12/23/17 03:09 Eosinophils # 0.2 k/uL (0-0.7) 12/23/17 03:09 Basophils # 0.1 k/uL (0-0.2) 12/23/17 03:09 PT 10.2 sec (9.0-12.0) 12/22/17 09:00 INR 1.0 (<1.2) 12/22/17 09:00 APTT 23.3 sec (22.0-30.0) 12/22/17 09:00 Sodium 131 mmol/L (137-145) L 12/23/17 03:09 Potassium 4.4 mmol/L (3.5-5.1) 12/23/17 03:09 Chloride 102 mmol/L (98-107) 12/23/17 03:09 Carbon Dioxide 21 mmol/L (22-30) L 12/23/17 03:09 Anion Gap 8 mmol/L 12/23/17 03:09 BUN 16 mg/dL (9-20) 12/23/17 03:09 Creatinine 0.80 mg/dL (0.66-1.25) 12/23/17 03:09 Est GFR (MDRD) Af Amer >60 (>60 ml/min/1.73 sqM) 12/23/17 03:09 Est GFR (MDRD) Non-Af >60 (>60 ml/min/1.73 sqM) 12/23/17 03:09 Glucose 106 mg/dL (74-99) H 12/23/17 03:09 Plasma Lactic Acid Geo 0.9 mmol/L (0.7-2.0) 12/23/17 03:09 Calcium 8.2 mg/dL (8.4-10.2) L 12/23/17 03:09 Magnesium 2.0 mg/dL (1.6-2.3) 12/22/17 09:00 Total Bilirubin 1.2 mg/dL (0.2-1.3) 12/22/17 09:00 AST 31 U/L (17-59) 12/22/17 09:00 ALT 30 U/L (21-72) 12/22/17 09:00 Alkaline Phosphatase 99 U/L (38-126) 12/22/17 09:00 Total Creatine Kinase 39 U/L (55-170) L 12/22/17 09:00 CK-MB (CK-2) 1.4 ng/mL (0.0-2.4) 12/22/17 09:00 CK-MB (CK-2) Rel Index 3.6 12/22/17 09:00 Troponin I <0.012 ng/mL (0.000-0.034) 12/22/17 09:00 NT-Pro-B Natriuret Pep 269 pg/mL 12/22/17 09:00 Total Protein 6.0 g/dL (6.3-8.2) L 12/22/17 09:00 Albumin 3.0 g/dL (3.5-5.0) L 12/22/17 09:00 Influenza Type A RNA Not Detected (Not Detectd) 12/22/17 09:00 Influenza Type B (PCR) Not Detected (Not Detectd) 12/22/17 09:00 CT scan - chest: image reviewed (Increasing the amount of fluid into the soft tissue of the left chest surgical changes remain within the pleural space) Assessment and Plan (1) Diaphragmatic hernia Current Visit: No Status: Acute Code(s): K44.9 - DIAPHRAGMATIC HERNIA WITHOUT OBSTRUCTION OR GANGRENE SNOMED Code(s): 18127317 (2) Pleural effusion Current Visit: No Status: Acute Code(s): J90 - PLEURAL EFFUSION, NOT ELSEWHERE CLASSIFIED SNOMED Code(s): 02471396 (3) COPD (chronic obstructive pulmonary disease) Current Visit: No Status: Chronic Code(s): J44.9 - CHRONIC OBSTRUCTIVE PULMONARY DISEASE, UNSPECIFIED SNOMED Code(s): 68459645 (4) Chest wall abscess Narrative/Plan: 72-year-old male presents to Hospital with a marked increase of pain to his left chest. This is quite similar to what he's been suffering from in the recent past. It is noted he started with a diaphragmatic rupture requiring thoracic surgical repair. Since then he's been having some difficulties with the current infection at that site. He was actually doing relatively well over the last many days until he had the sudden onset of severe pain and left chest making it hard to breathe every breath was extremely painful because he presented to the emergency center. Fortunately with narcotic therapies he is feeling better at this time. We will initiate antibiotic therapy at this time vancomycin and meropenem will be utilized because he's having some fever. The cardiac thoracic surgical team has been consulted and we await their input as far as her plan. The patient is significant increase the amount of fluid into the soft tissue of the chest wall. An very concerned that this is abscess given the erythema tenderness pain and fever that he is suffering from. Cultures are pending. If the site is incised and drained certainly deep cultures will be helpful to further direct ongoing antibiotic therapy. Pain control currently is adequate. Continue his respiratory treatments and oxygen therapy. She has importance of adequate protein intake for his healing. Multivitamin is ensured. Current Visit: Yes Status: Acute Code(s): L02.213 - CUTANEOUS ABSCESS OF CHEST WALL SNOMED Code(s): 17347122
[2017-12-23] MEDS: MEROPENEM 1 GM in SODIUM CHLORIDE 0.9% 100 ML IVPB SCH ×2 (08:56→15:49)
[2017-12-23] MEDS ORDERED: VANCOMYCIN 1,750 MG in SODIUM CHLORIDE 0.9% 250 ML IVPB ONE (10:00)
[2017-12-23] MEDS: MULTIVITAMINS, THERA 1 EACH TAB PO SCH (10:37)
[2017-12-23] MEDS: MORPHINE SULFATE 4 MG/ML SYRINGE IVP PRN ×2 (13:43→21:13)
--- NOTE | 2017-12-23 14:39 | P.GSCN ---
History of Present Illness Consult date: 12/23/17 Reason for Consult: Postoperative evaluation, left chest surgical site subcutaneous fluid collection. Requesting physician: Brian Canchola History of present illness: This is 72-year-old gentleman who is followed by Dr. Quinton Gary on outpatient basis. His past medical history includes COPD, previous tobacco dependence, hypertension, hyperlipidemia, prostate disorder, Mnire's disease, and hearing disorder. The patient is well known to our service and presented to the emergency department yesterday 12/22/2017 with complaints of progressive shortness of breath which started on a Sunday or of this past week. Patient also has complaints of a nonproductive cough, which he states is episodic coughing. He reports that he has been having 3-4 episodes of coughing and a day. Patient also has complaints of fatigue, generalized weakness and redness and increase in swelling to his left chest incision. The patient denies any diarrhea, nausea, vomiting, fever, dizziness, or chills. On 11/22/2017 the patient underwent a successful left thoracotomy closure of the diaphragmatic hernia with patch and repair of the costochondral dislocation and subsequent lung herniation. He was subsequently discharged home on 11/26/2017 and presented back to the emergency department here at [facility] on 11/30/2017 and on 12/06/2017 with complaints of postoperative left chest wall pain and progressive shortness of breath. Today he denies pain to his left chest, although he does have some tenderness with palpitation to his left chest incision. His lab work on admission showed a WBC count of 14.3, Hgb 13.1, BUN 20, creatinine 0.79 and his influenza screening was negative. A chest x-ray was completed which showed enlarging left-sided pleural-based mass, a subsequent computed tomography scan of his chest was completed which demonstrated a left chest subcutaneous soft tissue fluid collection. Due to the patient's recent surgical history, and computed tomography scan results Dr. Avila from cardiothoracic surgery was consulted. Review of Systems A 14 point review of systems was completed and was negative except as mentioned in HPI. Past Medical History Past Medical History: COPD, Hearing Disorder / Deafness (Hearing aid to his right ear. This is), Hyperlipidemia, Hypertension, Prostate Disorder Additional Past Medical History / Comment(s): emphysema, history of menieres disease History of Any Multi-Drug Resistant Organisms: None Reported Past Surgical History: Hernia Repair, Tonsillectomy Additional Past Surgical History / Comment(s): hernia X2, cyst on hand, right foot pin in great toe. Left thoracotomy closure of diaphragmatic hernia with patch, repair of costochondral dislocation with subsequent lung herniation November 22 2017 Past Anesthesia/Blood Transfusion Reactions: No Reported Reaction Past Psychological History: No Psychological Hx Reported Additional Psychological History / Comment(s): . Retired from the [employer]. experience with the [employer], no international travel. No animal exposures Smoking Status: Former smoker Past Alcohol Use History: None Reported Additional Past Alcohol Use History / Comment(s): Pt started smoking in 1963 and quit in 2012. Past Drug Use History: None Reported - Past Family History Mother Family Medical History: Dementia Additional Family Medical History / Comment(s): breast cancer Father Family Medical History: No Reported History Medications and Allergies Home Medications Medication Instructions Recorded Confirmed Type Albuterol Inhaler [Ventolin Hfa 2 puff INHALATION RT-Q6H PRN 11/18/17 12/22/17 History Inhaler] Benzonatate [Benzonatate Perle] 200 mg PO TID@0900,1600,2200 11/18/17 12/22/17 History Budesonide [Pulmicort] 0.5 mg INHALATION RT-BID 11/18/17 12/22/17 History Finasteride [Proscar] 5 mg PO HS 11/18/17 12/22/17 History Ipratropium-Albuterol Nebulize 3 ml INHALATION RT-QID 11/18/17 12/22/17 History [Duoneb 0.5 mg-3 mg/3 ml Soln] Lovastatin [Mevacor] 10 mg PO HS 11/18/17 12/22/17 History Meclizine [Antivert] 25 mg PO DAILY 11/18/17 12/22/17 History Montelukast [Singulair] 10 mg PO HS 11/18/17 12/22/17 History Omeprazole 20 mg PO DAILY 11/18/17 12/22/17 History Tamsulosin HCl [Flomax] 0.4 mg PO HS 11/18/17 12/22/17 History Lisinopril [Zestril] 10 mg PO DAILY #0 01/29/18 02/24/18 Rx HYDROcodone/APAP 10-325MG [[place] 1 tab PO QID PRN #30 tab 12/03/17 12/22/17 Rx 10-325] Allergies Allergy/AdvReac Type Severity Reaction Status Date / Time No Known Allergies Allergy Verified 12/22/17 11:30 Surgical - Exam Vital Signs Temp Pulse Resp BP Pulse Ox 97.8 F 100 18 108/67 95 12/22/17 08:51 12/22/17 08:51 12/22/17 08:51 12/22/17 08:51 12/22/17 08:51 - General well developed, well nourished, no distress, no pain - Eyes PERRL, normal ocular movement - ENT normal pinna, normal nares, normal mucosa, no congestion, decreased hearing - Neck Neck is supple, no JVD or lymphadenopathy. no masses, no bruits, trachea midline, no venous distension - Respiratory Lungs sounds are essentially clear throughout, diminished with bilateral bases. Respirations are symmetrical and nonlabored. No dullness or egophony. Nonproductive cough. - Cardiovascular Irregular rhythm and tachycardic rate. S1 and S2 present, negative for S3, gallop or murmur. No edema present. Peripheral pulses palpable. - Abdomen Abdomen is soft, nontender and nondistended. Active bowel sounds. 4 abdominal quadrants. Passing flatus. - Integumentary Left thoracotomy incision clean, dry and well healed, there is some erythema surrounding the midportion of his incision with a small amount of fluctuance. There is some tenderness with palpation. His skin is warm, dry and pink. No clubbing or cyanosis. no rash, no growths, no abnormal pigmentation - Neurologic normal coordination, normal sensation - Musculoskeletal normal gait, normal posture - Psychiatric oriented to time, oriented to person, oriented to place, speech is normal, memory intact Results - Labs 12/23/17 03:09 12/23/17 03:09 Abnormal Lab Results - Last 24 Hours (Table) 12/23/17 12/23/17 Range/Units 03:09 03:09 RBC 3.51 L (4.30-5.90) m/uL Hgb 10.2 L (13.0-17.5) gm/dL Hct 33.3 L (39.0-53.0) % MCHC 30.6 L (31.0-37.0) g/dL Neutrophils # 8.7 H (1.3-7.7) k/uL Lymphocytes # 0.8 L (1.0-4.8) k/uL Sodium 131 L (137-145) mmol/L Carbon Dioxide 21 L (22-30) mmol/L Glucose 106 H (74-99) mg/dL Calcium 8.2 L (8.4-10.2) mg/dL Microbiology - Last 24 Hours (Table) 12/22/17 09:00 Blood Culture - Preliminary Blood No Growth after 24 hours Diabetes panel 12/23/17 Range/Units 03:09 Sodium 131 L (137-145) mmol/L Potassium 4.4 (3.5-5.1) mmol/L Chloride 102 (98-107) mmol/L Carbon Dioxide 21 L (22-30) mmol/L BUN 16 (9-20) mg/dL Creatinine 0.80 (0.66-1.25) mg/dL Glucose 106 H (74-99) mg/dL Calcium 8.2 L (8.4-10.2) mg/dL Calcium panel 12/23/17 Range/Units 03:09 Calcium 8.2 L (8.4-10.2) mg/dL Pituitary panel 12/23/17 Range/Units 03:09 Sodium 131 L (137-145) mmol/L Potassium 4.4 (3.5-5.1) mmol/L Chloride 102 (98-107) mmol/L Carbon Dioxide 21 L (22-30) mmol/L BUN 16 (9-20) mg/dL Creatinine 0.80 (0.66-1.25) mg/dL Glucose 106 H (74-99) mg/dL Calcium 8.2 L (8.4-10.2) mg/dL Adrenal panel 12/23/17 Range/Units 03:09 Sodium 131 L (137-145) mmol/L Potassium 4.4 (3.5-5.1) mmol/L Chloride 102 (98-107) mmol/L Carbon Dioxide 21 L (22-30) mmol/L BUN 16 (9-20) mg/dL Creatinine 0.80 (0.66-1.25) mg/dL Glucose 106 H (74-99) mg/dL Calcium 8.2 L (8.4-10.2) mg/dL - Imaging CT scan - chest: report reviewed, image reviewed Assessment and Plan (1) Chest wall abscess Current Visit: Yes Status: Acute Code(s): L02.213 - CUTANEOUS ABSCESS OF CHEST WALL SNOMED Code(s): 63718079 (2) Diaphragmatic hernia Current Visit: No Status: Acute Code(s): K44.9 - DIAPHRAGMATIC HERNIA WITHOUT OBSTRUCTION OR GANGRENE SNOMED Code(s): 46140302 (3) Mnire's disease Current Visit: No Status: Acute Code(s): H81.09 - MENIERE'S DISEASE, UNSPECIFIED EAR SNOMED Code(s): 76102422 (4) Paroxysmal atrial fibrillation Current Visit: No Status: Acute Code(s): I48.0 - PAROXYSMAL ATRIAL FIBRILLATION SNOMED Code(s): 061493597 (5) COPD (chronic obstructive pulmonary disease) Current Visit: No Status: Chronic Code(s): J44.9 - CHRONIC OBSTRUCTIVE PULMONARY DISEASE, UNSPECIFIED SNOMED Code(s): 30894781 (6) Hard of hearing Current Visit: No Status: Chronic Code(s): H91.90 - UNSPECIFIED HEARING LOSS , UNSPECIFIED EAR SNOMED Code(s): 45783505 (7) History of hernia repair Current Visit: No Status: Chronic Code(s): Z98.890 - OTHER SPECIFIED POSTPROCEDURAL STATES; Z87.19 - PERSONAL HISTORY OF OTHER DISEASES OF THE DIGESTIVE SYSTEM SNOMED Code(s): 42089546548321 (8) Hyperlipidemia Current Visit: No Status: Chronic Code(s): E78.5 - HYPERLIPIDEMIA, UNSPECIFIED SNOMED Code(s): 26969575 (9) Hypertension Current Visit: No Status: Chronic Code(s): I10 - ESSENTIAL (PRIMARY) HYPERTENSION SNOMED Code(s): 24489731 (10) Prostate disorder Current Visit: No Status: Chronic Code(s): N42.9 - DISORDER OF PROSTATE, UNSPECIFIED SNOMED Code(s): 79327625 Plan: The patient was seen and examined. His chart and diagnostics were reviewed. The patient was seen and examined by Dr. Gonzalez from cardiothoracic surgery. Dr. Gonzalez did review his computed tomography scan of his chest. Antibiotic recommendations and management per infectious disease Dr. Ovalles. Atrial fibrillation management per Dr. LUCI Connell's recommendations. Computed tomography scan of the chest does reveal some subcutaneous fluid collection at the left chest thoracotomy incision site, the fluid will need to be drained this admission. Further recommendations to follow as the patient progresses in his care. Pulmonary management and recommendations per Dr. Moss. Thank you Dr. Mcfarland for this consult we look forward to working with you in the care of your patient. Time with Patient: Greater than 30
[2017-12-23] MEDS: METOPROLOL TARTRATE 12.5 MG TAB PO SCH ×2 (15:49→21:15)
[2017-12-23] MEDS ORDERED: FUROSEMIDE 10 MG/ML 2 ML VIAL IV STA (17:35)
--- NOTE | 2017-12-23 17:40 | P.PN ---
Subjective Progress Note Date: 12/23/17 Principal diagnosis: Shortness of breath Pleasant 72-year-old male presents to Hospital for significant and ongoing pain. This pleasant gentleman relates that in early October he was having significant difficulty with severe cough related to COPD and underlying infection. His related that he coughed so hard he caused a costochondral dislocation as well as a left diaphragmatic rupture with herniation. He was evaluated by Dr. Avila to cardiothoracic surgery was taken to the operating room where a thoracotomy was performed for appear of the diaphragm with mesh as well as repair of the costochondral dislocation. Postoperatively the patient was doing relatively well and was sent home on 11/26/2017. In home setting was doing relatively well. Over significant difficulties was more cough his pain became uncontrolled presented back to the emergency center and was admitted earlier in November. The patient again improved and has been home recovering further but then again developed severe pain to the left chest. Follow-up computed tomography scan has been performed in the emergency center and there is a significant increase in the amount of fluid that is outside of the pleural space into the tissue of the chest. This appears to be causing him severe pain he subsequently is admitted. Infectious disease consult for antibiotic therapy. 12/23/2017 the patient continues to feel poorly. He is quite short of breath and continues to have pain into his chest. I discussed the case with the nurse practitioner of the thoracic surgeon, the patient also may recurrence of some atrial fibrillation and is having some regularity at this time is having some increasing shortness of breath. Cardiology was requested to see him again. Patient's family is distinctly unhappy that the patient is having difficulties with multiple hospitalizations, they were unpleasant to this provider and although I was trying to provide some information admitted very clear that I am not the cardiac thoracic surgeon and I'm only a nursing consultant trying to work to help him feel better. Objective - Vital Signs Vital signs: Vital Signs Temp 99.3 F 12/23/17 15:00 Pulse 102 H 12/23/17 17:18 Resp 22 12/23/17 15:00 BP 128/74 12/23/17 15:00 Pulse Ox 90 L 12/23/17 15:00 Intake & Output 12/22/17 12/23/17 12/23/17 18:59 06:59 18:59 Intake Total 500 120 Balance 500 120 Weight 87.09 kg Intake: Oral 500 120 Other: Voiding Method Toilet Toilet Toilet Urinal Urinal Urinal # Voids 1 1 1 - Exam Pleasant 72-year-old gentleman who relates he is much more comfortable now than 24 hours ago. HEENT: Anicteric conjunctiva are pink and moist nasal mucosa grossly intact without significant lesions, there is no thrush. Neck: The neck is supple without significant lymphadenopathy or thyromegaly. Lungs: They're symmetrical air entry there are crackles at the left base but no britney bronchial sounds no dullness or egophony. Is able to take good deep breaths with only minimal discomfort and does not have significant coughing with a deep breath. Heart: Irregular with an audible S1 and S2 without S4. There is no significant murmur click or rub, PMI was nondisplaced. Abdomen: Positive bowel sounds soft and nontender without palpable masses or organomegaly. There was no guarding or rebound. Extremities: The upper extremities have excellent pulses they are symmetric, no significant petechiae or telangiectasia. No splinter hemorrhages were noted. The lower extremities are free from significant edema. The peripheral pulses were 2+ and symmetric. Neuro: Awake alert oriented to person place and time. There are no acute new gross focal sensory motor deficits. Surgical wound to the left chest in the thoracotomy position is well-healed however there is no dense erythema on the chest wall as well as increasing amount of fluctuance to the site. It is mildly tender to touch. - Labs CBC & Chem 7: 12/23/17 03:09 12/23/17 03:09 Labs: Abnormal Lab Results - Last 24 Hours (Table) 12/23/17 12/23/17 Range/Units 03:09 03:09 RBC 3.51 L (4.30-5.90) m/uL Hgb 10.2 L (13.0-17.5) gm/dL Hct 33.3 L (39.0-53.0) % MCHC 30.6 L (31.0-37.0) g/dL Neutrophils # 8.7 H (1.3-7.7) k/uL Lymphocytes # 0.8 L (1.0-4.8) k/uL Sodium 131 L (137-145) mmol/L Carbon Dioxide 21 L (22-30) mmol/L Glucose 106 H (74-99) mg/dL Calcium 8.2 L (8.4-10.2) mg/dL Microbiology - Last 24 Hours (Table) 12/22/17 09:00 Blood Culture - Preliminary Blood No Growth after 24 hours Laboratory Results WBC 10.6 k/uL (3.8-10.6) 12/23/17 03:09 RBC 3.51 m/uL (4.30-5.90) L 12/23/17 03:09 Hgb 10.2 gm/dL (13.0-17.5) L 12/23/17 03:09 Hct 33.3 % (39.0-53.0) L 12/23/17 03:09 MCV 95.0 fL (80.0-100.0) 12/23/17 03:09 MCH 29.0 pg (25.0-35.0) 12/23/17 03:09 MCHC 30.6 g/dL (31.0-37.0) L 12/23/17 03:09 RDW 13.4 % (11.5-15.5) 12/23/17 03:09 Plt Count 340 k/uL (150-450) 12/23/17 03:09 Neutrophils % 82 % 12/23/17 03:09 Lymphocytes % 8 % 12/23/17 03:09 Monocytes % 7 % 12/23/17 03:09 Eosinophils % 1 % 12/23/17 03:09 Basophils % 1 % 12/23/17 03:09 Neutrophils # 8.7 k/uL (1.3-7.7) H 12/23/17 03:09 Lymphocytes # 0.8 k/uL (1.0-4.8) L 12/23/17 03:09 Monocytes # 0.7 k/uL (0-1.0) 12/23/17 03:09 Eosinophils # 0.2 k/uL (0-0.7) 12/23/17 03:09 Basophils # 0.1 k/uL (0-0.2) 12/23/17 03:09 PT 10.2 sec (9.0-12.0) 12/22/17 09:00 INR 1.0 (<1.2) 12/22/17 09:00 APTT 23.3 sec (22.0-30.0) 12/22/17 09:00 Sodium 131 mmol/L (137-145) L 12/23/17 03:09 Potassium 4.4 mmol/L (3.5-5.1) 12/23/17 03:09 Chloride 102 mmol/L (98-107) 12/23/17 03:09 Carbon Dioxide 21 mmol/L (22-30) L 12/23/17 03:09 Anion Gap 8 mmol/L 12/23/17 03:09 BUN 16 mg/dL (9-20) 12/23/17 03:09 Creatinine 0.80 mg/dL (0.66-1.25) 12/23/17 03:09 Est GFR (MDRD) Af Amer >60 (>60 ml/min/1.73 sqM) 12/23/17 03:09 Est GFR (MDRD) Non-Af >60 (>60 ml/min/1.73 sqM) 12/23/17 03:09 Glucose 106 mg/dL (74-99) H 12/23/17 03:09 Plasma Lactic Acid Geo 0.9 mmol/L (0.7-2.0) 12/23/17 03:09 Calcium 8.2 mg/dL (8.4-10.2) L 12/23/17 03:09 Magnesium 2.0 mg/dL (1.6-2.3) 12/22/17 09:00 Total Bilirubin 1.2 mg/dL (0.2-1.3) 12/22/17 09:00 AST 31 U/L (17-59) 12/22/17 09:00 ALT 30 U/L (21-72) 12/22/17 09:00 Alkaline Phosphatase 99 U/L (38-126) 12/22/17 09:00 Total Creatine Kinase 39 U/L (55-170) L 12/22/17 09:00 CK-MB (CK-2) 1.4 ng/mL (0.0-2.4) 12/22/17 09:00 CK-MB (CK-2) Rel Index 3.6 12/22/17 09:00 Troponin I <0.012 ng/mL (0.000-0.034) 12/22/17 09:00 NT-Pro-B Natriuret Pep 269 pg/mL 12/22/17 09:00 Total Protein 6.0 g/dL (6.3-8.2) L 12/22/17 09:00 Albumin 3.0 g/dL (3.5-5.0) L 12/22/17 09:00 Influenza Type A RNA Not Detected (Not Detectd) 12/22/17 09:00 Influenza Type B (PCR) Not Detected (Not Detectd) 12/22/17 09:00 Microbiology 12/22/17 09:00 Blood Blood Culture - Preliminary No Growth after 24 hours Assessment and Plan (1) Diaphragmatic hernia Current Visit: No Status: Acute Code(s): K44.9 - DIAPHRAGMATIC HERNIA WITHOUT OBSTRUCTION OR GANGRENE SNOMED Code(s): 30573452 (2) Pleural effusion Current Visit: No Status: Acute Code(s): J90 - PLEURAL EFFUSION, NOT ELSEWHERE CLASSIFIED SNOMED Code(s): 28370710 (3) COPD (chronic obstructive pulmonary disease) Current Visit: No Status: Chronic Code(s): J44.9 - CHRONIC OBSTRUCTIVE PULMONARY DISEASE, UNSPECIFIED SNOMED Code(s): 76861745 (4) Chest wall abscess Narrative/Plan: 72-year-old male presents to Hospital with a marked increase of pain to his left chest. This is quite similar to what he's been suffering from in the recent past. It is noted he started with a diaphragmatic rupture requiring thoracic surgical repair. Since then he's been having some difficulties with the current infection at that site. He was actually doing relatively well over the last many days until he had the sudden onset of severe pain and left chest making it hard to breathe every breath was extremely painful because he presented to the emergency center. Fortunately with narcotic therapies he is feeling better at this time. We will initiate antibiotic therapy at this time vancomycin and meropenem will be utilized because he's having some fever. The cardiac thoracic surgical team has been consulted and we await their input as far as her plan. The patient is significant increase the amount of fluid into the soft tissue of the chest wall. An very concerned that this is abscess given the erythema tenderness pain and fever that he is suffering from. Cultures are pending. If the site is incised and drained certainly deep cultures will be helpful to further direct ongoing antibiotic therapy. Pain control currently is adequate. Continue his respiratory treatments and oxygen therapy. She has importance of adequate protein intake for his healing. Multivitamin is ensured. 12/23/2017 cultures are in process at this point in time. Continue intravenous antibiotic therapy. Have asked for cardiology consultation with concerns to recurrent her intermittent atrial fibrillation. Have discussed the case with current thoracic surgery and hopefully will proceed to surgical intervention in the near future. Current Visit: Yes Status: Acute Code(s): L02.213 - CUTANEOUS ABSCESS OF CHEST WALL SNOMED Code(s): 42553694
[2017-12-23 18:20] LABS: Basophils # (A) 0.1 k/uL (0-0.2); Basophils % (A) 1 %; Eosinophils # (A) 0.2 k/uL (0-0.7); Eosinophils % (A) 1 %; HCT 38.2 % (39.0-53.0); HGB 12.1 gm/dL (13.0-17.5); Lymphocytes # (A) 0.5 k/uL (1.0-4.8); Lymphocytes % (A) 5 %; MCH 29.9 pg (25.0-35.0); MCHC 31.7 g/dL (31.0-37.0); MCV 94.3 fL (80.0-100.0); Mean Platelet Volume 6.7; Monocytes # (A) 0.7 k/uL (0-1.0); Monocytes % (A) 6 %; Neutrophils # (A) 9.9 k/uL (1.3-7.7); Neutrophils % (A) 86 %; Platelet Count 445 k/uL (150-450); RBC 4.05 m/uL (4.30-5.90); RDW 13.2 % (11.5-15.5); WBC 11.5 k/uL (3.8-10.6)
--- NOTE | 2017-12-23 18:28 | XR ---
EXAMINATION TYPE: XR chest 2V DATE OF EXAM: 12/23/2017 COMPARISON: 12/18/2013 HISTORY: Shortness of breath TECHNIQUE: Frontal and lateral views of the chest are obtained. FINDINGS: There is increasing retrocardiac opacity related to the known left pleural effusion and le ft-sided airspace disease. Findings are superimposed upon COPD with diffuse interstitial prominence. Cardiac silhouette is mildly enlarged. Mild multilevel degenerative changes of the thoracic spine are seen. No pneumothorax. IMPRESSION: 1. Increasing retrocardiac density related to the known small loculated left pleural effusion and lef t basilar airspace disease that may represent atelectasis or pneumonia. 2. Diffuse interstitial prominence could relate to atypical pneumonia/pneumonitis or mild pulmonary v ascular congestion.
[2017-12-23 18:30] LABS: Anion Gap 14 mmol/L; Blood Urea Nitrogen 14 mg/dL (9-20); Calcium 8.5 mg/dL (8.4-10.2); Carbon Dioxide 20 mmol/L (22-30); Chloride 97 mmol/L (98-107); Glucose 146 mg/dL (74-99); Potassium 4.7 mmol/L (3.5-5.1); Sodium 131 mmol/L (137-145)
--- NOTE | 2017-12-23 20:27 | PN ---
PROGRESS NOTE DATE OF SERVICE: 12/23/2017 The patient seen in the room at bedside. Family also at the bedside. The patient claims that he has been having more coughing and some shortness of breath. and daughter at the bedside. They also narrate that patient is in fact has been having more cough and shortness of breath since morning. The patient's vital signs: Temperature of 99.3, pulse of 115, respiration 22, blood pressure 128/74, O2 saturation 98% on 4 L. HEENT atraumatic, normocephalic. Pupils equal and reactive to light. Extraocular movements intact. Buccal mucosa is fair. Neck is supple. No goiter, lymphadenopathy. JVD is negative. No carotid bruit heard. Lungs positive minimal crackles on the right base. Decreased breath sounds on the left. Abdomen is soft, nontender, nondistended. Bowel sounds positive. Extremities 1+ edema. LAB: CBC white count of 10, hemoglobin 10.2, hematocrit 33.3, and platelet count of 340. Chemical profile sodium 131, potassium 4.4, chloride 102, bicarb 21, BUN of 16, creatinine 0.8. ASSESSMENT: 1. Shortness of breath. We will order a stat chest x-ray and BNP and basic metabolic panel. CBC. Will continue with the IV antibiotics and breathing treatments. Will also order BNP and give Lasix 20 mg x1. No further recommendations after workup is complete. 2. Left sided severe postop pleuritic chest pain. 3. Left-sided loculated pleural effusion with left lung mass which is pleural based. 4. Chest wall abscess. Infectious Disease is following. 5. Severe chronic obstructive pulmonary disease. 6. Recent perforated left hemidiaphragm with fracture of costochondral junction requiring repair. 7. Hypertension with hypertensive cardiovascular disease. 8. Generalized anxiety disorder. 9. Paroxysmal atrial fibrillation. The patient remains on IV antibiotics, bronchodilators. Infectious disease has been consulted. The cardiothoracic surgeon needs to see the patient for recommendations on the pleural mass. Will continue current treatment at this point and further recommendations after patient has the workup completed. MMODL / IJN: [id number] /
[2017-12-23] MEDS: MONTELUKAST 10 MG TAB PO SCH (21:16)
[2017-12-23] MEDS: FINASTERIDE 5 MG TAB PO SCH (21:16)
[2017-12-23] MEDS: ATORVASTATIN 10 MG TAB PO SCH (21:16)
[2017-12-23] MEDS: TAMSULOSIN 0.4 MG CAP.ER.24H PO SCH (21:16)
[2017-12-23] MEDS: methylPREDNISolone SOD SUCCI 125 MG/2 ML VIAL IV SCH (21:17)
[2017-12-23] MEDS: VANCOMYCIN 1,500 MG in SODIUM CHLORIDE 0.9% 250 ML IVPB SCH (21:35)
[2017-12-23] MEDS: ALPRAZolam 0.25 MG TAB PO PRN (23:01)
[2017-12-23] MEDS: MELATONIN 5 MG TABLET PO SCH (23:49)
[2017-12-23] MEDS: ACETAMINOPHEN TAB 325 MG TAB PO PRN (23:49)
[2017-12-24] MEDS: MEROPENEM 1 GM in SODIUM CHLORIDE 0.9% 100 ML IVPB SCH ×4 (00:58→16:17)
[2017-12-24] MEDS: IPRATROPIUM-ALBUTEROL 3 ML NEB INHALATION SCH ×4 (07:37→20:01)
[2017-12-24] MEDS: BUDESONIDE 0.5 MG/2 ML NEBU INHALATION SCH ×2 (07:37→20:01)
[2017-12-24] MEDS: MORPHINE SULFATE 4 MG/ML SYRINGE IVP PRN ×3 (09:11→21:24)
[2017-12-24] MEDS: LISINOPRIL 10 MG TAB PO SCH (09:14)
[2017-12-24] MEDS: METOPROLOL TARTRATE 12.5 MG TAB PO SCH (09:15)
[2017-12-24] MEDS: methylPREDNISolone SOD SUCCI 125 MG/2 ML VIAL IV SCH ×2 (09:15→20:53)
[2017-12-24] MEDS: MECLIZINE 25 MG TAB PO SCH (09:15)
[2017-12-24] MEDS: BENZONATATE 100 MG CAP PO SCH ×3 (09:16→23:00)
[2017-12-24] MEDS: PANTOPRAZOLE 40 MG TABLET PO SCH (09:16)
[2017-12-24] MEDS: ALPRAZolam 0.25 MG TAB PO PRN (09:29)
--- NOTE | 2017-12-24 09:45 | P.PN ---
Subjective Progress Note Date: 12/24/17 Principal diagnosis: Left chest surgical site subcutaneous fluid collection, postoperative left- sided chest pain. Previous medical history of COPD, previous tobacco dependence , hypertension, hyperlipidemia, prostate disorder, Mnire's disease, hearing disorder. Status post left thoracotomy closure of diaphragmatic hernia with patch, repair of costochondral dislocation and subsequent lung herniation completed 11/22/2017. Recent diagnosis of paroxysmal atrial fibrillation last admission, placed on Lopressor which the patient stopped at home, not a candidate for anticoagulation per cardiology. Patient was lying in bed complaining of significant left-sided pain, stated his IV when bad so he was waiting for a new IV to be placed so he can kept IV pain medication. His is at the bedside, very concerned regarding his pain level , oxygen needs, and lack of progressing to get better. Objective - Vital Signs Vital signs: Vital Signs Temp 96.6 F L 12/24/17 05:53 Pulse 99 12/24/17 07:50 Resp 17 12/24/17 05:53 BP 110/67 12/24/17 05:53 Pulse Ox 97 12/24/17 05:53 Intake & Output 12/23/17 12/24/17 12/24/17 18:59 06:59 18:59 Intake Total 120 Output Total 1200 Balance 120 -1200 Intake: Oral 120 Output: Urine 1200 Other: Voiding Method Toilet Urinal # Voids 1 2 - Constitutional General appearance: Present: cooperative, mild distress - Respiratory Details: Lungs sounds clear bilaterally, diminished in the left base. Respirations even , nonlabored. Currently on 5 L nasal cannula with oxygen saturation 97%. - Cardiovascular Details: S1, S2 present. Tachycardia, regular rate and rhythm. Palpable peripheral pulses bilaterally. 2+ bilateral lower extremity edema present. No calf pain or tenderness noted. - Gastrointestinal Gastrointestinal Comment(s): Abdomen soft, nontender, nondistended. Active bowel sounds 4 quadrants. Tolerating minimal diet. - Genitourinary Genitourinary Comment(s): Continues to void. - Integumentary Integumentary Comment(s): Skin is warm and dry without incident good perfusion. Left lateral chest wall incision well healed, slightly reddened. - Neurologic Neurologic: Present: CNII-XII intact - Musculoskeletal Musculoskeletal: Present: strength equal bilaterally - Psychiatric Psychiatric: Present: A&O x's 3, appropriate affect, intact judgment & insight - Allied health notes Allied health notes reviewed: nursing - Labs CBC & Chem 7: 12/23/17 18:15 12/23/17 18:05 Labs: Abnormal Lab Results - Last 24 Hours (Table) 12/23/17 12/23/17 12/23/17 Range/Units 18:05 18:05 18:15 WBC 11.5 H (3.8-10.6) k/uL RBC 4.05 L (4.30-5.90) m/uL Hgb 12.1 L (13.0-17.5) gm/dL Hct 38.2 L (39.0-53.0) % Neutrophils # 9.9 H (1.3-7.7) k/uL Lymphocytes # 0.5 L (1.0-4.8) k/uL Sodium 131 L (137-145) mmol/L Chloride 97 L (98-107) mmol/L Carbon Dioxide 20 L (22-30) mmol/L Glucose 146 H (74-99) mg/dL Troponin I 0.258 H* (0.000-0.034) ng/mL 12/23/17 12/24/17 Range/Units 23:39 05:29 WBC (3.8-10.6) k/uL RBC (4.30-5.90) m/uL Hgb (13.0-17.5) gm/dL Hct (39.0-53.0) % Neutrophils # (1.3-7.7) k/uL Lymphocytes # (1.0-4.8) k/uL Sodium (137-145) mmol/L Chloride (98-107) mmol/L Carbon Dioxide (22-30) mmol/L Glucose (74-99) mg/dL Troponin I 0.293 H* 0.197 H* (0.000-0.034) ng/mL Microbiology - Last 24 Hours (Table) 12/23/17 03:09 Blood Culture - Preliminary Blood No Growth after 24 hours 12/22/17 09:00 Blood Culture - Preliminary Blood No Growth after 24 hours - Imaging and Cardiology Chest x-ray: report reviewed, image reviewed CT scan - chest: report reviewed, image reviewed Assessment and Plan (1) Pleural mass Current Visit: Yes Status: Chronic Code(s): J94.9 - PLEURAL CONDITION, UNSPECIFIED SNOMED Code(s): 193554623 (2) Postoperative pain Current Visit: Yes Status: Chronic Code(s): G89.18 - OTHER ACUTE POSTPROCEDURAL PAIN SNOMED Code(s): 614576811 (3) Mnire's disease Current Visit: No Status: Chronic Code(s): H81.09 - MENIERE'S DISEASE, UNSPECIFIED EAR SNOMED Code(s): 49899004 (4) Paroxysmal atrial fibrillation Current Visit: Yes Status: Acute Code(s): I48.0 - PAROXYSMAL ATRIAL FIBRILLATION SNOMED Code(s): 564531074 (5) COPD (chronic obstructive pulmonary disease) Current Visit: Yes Status: Chronic Code(s): J44.9 - CHRONIC OBSTRUCTIVE PULMONARY DISEASE, UNSPECIFIED SNOMED Code(s): 05389670 (6) Hard of hearing Current Visit: Yes Status: Chronic Code(s): H91.90 - UNSPECIFIED HEARING LOSS, UNSPECIFIED EAR SNOMED Code(s): 92209675 (7) Hyperlipidemia Current Visit: No Status: Chronic Code(s): E78.5 - HYPERLIPIDEMIA, UNSPECIFIED SNOMED Code(s): 56558279 (8) Hypertension Current Visit: No Status: Chronic Code(s): I10 - ESSENTIAL (PRIMARY) HYPERTENSION SNOMED Code(s): 45879566 (9) Prostate disorder Current Visit: No Status: Chronic Code(s): N42.9 - DISORDER OF PROSTATE, UNSPECIFIED SNOMED Code(s): 22985128 Plan: 1. Pain control with ordered medications. 2. Antibiotic management per infectious disease. 3. Potentially we will drain chest fluid is admission, with like to see results from antibiotics first. 4. Wean O2 as tolerated.Encourage incentive spirometry use 10 times every hour. 5. GI/DVT prophylaxis. 6. Will monitor x-rays. 7. Paroxysmal atrial fibrillation management per cardiology. 8. Bronchodilators, steroids per pulmonology. 9. More recommendations to follow. Time with Patient: Greater than 30
[2017-12-24] MEDS: VANCOMYCIN 1,500 MG in SODIUM CHLORIDE 0.9% 250 ML IVPB SCH ×2 (10:36→20:54)
[2017-12-24 11:07] LABS: Basophils # (A) 0.1 k/uL (0-0.2); Basophils % (A) 1 %; Eosinophils # (A) 0.3 k/uL (0-0.7); Eosinophils % (A) 3 %; HCT 37.3 % (39.0-53.0); HGB 11.3 gm/dL (13.0-17.5); Hypochromasia Slight; Lymphocytes # (A) 0.5 k/uL (1.0-4.8); Lymphocytes % (A) 6 %; MCH 29.1 pg (25.0-35.0); MCHC 30.4 g/dL (31.0-37.0); Mean Platelet Volume 7.6; Monocytes # (A) 0.6 k/uL (0-1.0); Monocytes % (A) 7 %; Neutrophils # (A) 6.9 k/uL (1.3-7.7); Neutrophils % (A) 81 %; Platelet Count 403 k/uL (150-450); RBC 3.89 m/uL (4.30-5.90); RDW 13.1 % (11.5-15.5); WBC 8.5 k/uL (3.8-10.6)
[2017-12-24] MEDS: FUROSEMIDE 10 MG/ML 4 ML VIAL IV SCH ×3 (11:19→21:41)
[2017-12-24 11:21] LABS: Anion Gap 10 mmol/L; Blood Urea Nitrogen 15 mg/dL (9-20); Calcium 8.2 mg/dL (8.4-10.2); Carbon Dioxide 23 mmol/L (22-30); Chloride 100 mmol/L (98-107); Glucose 95 mg/dL (74-99); Potassium 4.1 mmol/L (3.5-5.1); Sodium 133 mmol/L (137-145)
[2017-12-24] MEDS: MULTIVITAMINS, THERA 1 EACH TAB PO SCH (11:38)
[2017-12-24] MEDS: SENNOSIDES-DOCUSATE SODIUM 1 EACH TAB PO SCH ×2 (11:38→20:53)
--- NOTE | 2017-12-24 12:23 | P.PN ---
Subjective Progress Note Date: 12/23/17 (Date entry note ) Principal diagnosis: Left-sided severe pleuritic chest pain, loculated left pleural effusion with the severe,/abscess formation into the soft tissues, service, intermittent hypertension, severe COPD, perforated left diaphragm with fracture of costochondral junction status post repair of diaphragmatic and dislocation, generalized anxiety disorder, paroxysmal atrial fibrillation 12/23/2017, patient seen eval reexamined noted patient has slight fluid overload required IV Lasix continued to be on breathing treatments continue require pain medication seems to be controlling the severity of pain patient has been eval by cardiothoracic surgery furthermore definitely would intervention are being discussed Mr. Cheatham is a 72-year-old male well-known to me patient has a history of end- stage lung disease second to severe COPD emphysema patient has been doing relatively well since discharged recently after bilateral pneumonia treatment however started having recurrence of pain about 2 days ago patient was seen in the office yesterday his pain was minimal at that time he couldn't tolerate the [place] due to his the confusion and apneic episode he had some crackles present at the bases otherwise hemodynamic status was stable patient had at that time noted to have on outpatient setting low blood pressure however they did resolve after discontinuation of Lopressor patient was stable throughout the day however and of the day in the evening started having chest pain predominantly on the left side and dental pain becomes 10 out of 10 in addition subsequently patient started developing shortness of breath he started coughing with very thick tenacious yellowish-green mucus sputum and developed shortness of breath he was brought into the emergency department he was found to be did require a small bolus of crystalloid with with normal saline with the stabilization of blood pressure patient has been admitted into the hospital I've discussed with the emergency department service to consult Dr. Avila as the chest x-ray performed today revealed density on the left side has progressed in size from 4 cm to 7 cm in addition to that I will ask them to obtain a computed tomography scan of the chest which can be done without contrast. Patient is well-known to me he has been hospitalized and later part of September for acute COPD exacerbation and early October he was found to have a perforated left diaphragm which was repaired by Dr. Avila patient subsequently was rehospitalized 2 times with pneumonia at bases was eventually discharged in stable condition after extensive IV antibiotics patient was evaluated by infectious disease services Dr. Ovalles at that time as well recommended patient to be treated with Augmentin on outpatient basis Objective - Vital Signs Vital signs: Vital Signs Temp 96.6 F L 12/24/17 05:53 Pulse 96 12/24/17 10:56 Resp 17 12/24/17 05:53 BP 110/67 12/24/17 05:53 Pulse Ox 97 12/24/17 05:53 Intake & Output 12/23/17 12/24/17 12/24/17 18:59 06:59 18:59 Intake Total 120 550 Output Total 1200 650 Balance 120 -1200 -100 Intake: Intake, IV Titration 350 Amount Meropenem 1 gm In Sodium 100 Chloride 0.9% 100 ml @ 100 mls/hr IVPB Q8HR [facility] Rx#:[id number] Vancomycin 1,500 mg In 250 Sodium Chloride 0.9% 250 ml @ 125 mls/hr IVPB Q12H [facility] Rx#:[id number] Oral 120 200 Output: Urine 1200 650 Other: Voiding Method Toilet Urinal # Voids 1 2 1 - Exam This is a well-developed well-nourished awake alert oriented 3 male Limitations: no limitations General appearance: alert, in no apparent distress Head exam: Present: atraumatic, normocephalic, normal inspection Eye exam: Present: normal appearance, PERRL, EOMI. Absent: scleral icterus, conjunctival injection, periorbital swelling ENT exam: Present: mucous membranes dry Neck exam: Present: normal inspection. Absent: tenderness, meningismus, lymphadenopathy Respiratory exam: Present: Bilateral basal rales noted with overall poor air entry, no wheezing are present, chest wall tenderness, noted mild chest wall tenderness on the left the incision site appears to be intact no definite wound dehiscence mild some localized erythema noted without any dischargesignificant respiratory distress, wheezes, rhonchi, stridor noted, overall exam not much change compared to yesterday Cardiovascular Exam: Present: regular rate, normal rhythm, normal heart sounds. Absent: systolic murmur, diastolic murmur, rubs, gallop, clicks GI/Abdominal exam: Present: soft, normal bowel sounds. Absent: distended, tenderness, guarding, rebound, rigid, bruit, pulsatile mass, hernia Rectal exam: Present: deferred Extremities exam: Present: normal inspection, full ROM, normal capillary refill. Absent: tenderness, pedal edema, joint swelling, calf tenderness Back exam: Present: normal inspection Neurological exam: Present: alert, oriented X3, CN II-XII intact Psychiatric exam: Present: normal affect, normal mood Skin exam: Present: warm, dry, intact, normal color. Absent: rash - Labs CBC & Chem 7: 12/24/17 05:29 12/24/17 05:29 Labs: Abnormal Lab Results - Last 24 Hours (Table) 12/23/17 12/23/17 12/23/17 Range/Units 18:05 18:05 18:15 WBC 11.5 H (3.8-10.6) k/uL RBC 4.05 L (4.30-5.90) m/uL Hgb 12.1 L (13.0-17.5) gm/dL Hct 38.2 L (39.0-53.0) % MCHC (31.0-37.0) g/dL Neutrophils # 9.9 H (1.3-7.7) k/uL Lymphocytes # 0.5 L (1.0-4.8) k/uL Sodium 131 L (137-145) mmol/L Chloride 97 L (98-107) mmol/L Carbon Dioxide 20 L (22-30) mmol/L Glucose 146 H (74-99) mg/dL Calcium (8.4-10.2) mg/dL Troponin I 0.258 H* (0.000-0.034) ng/mL 12/23/17 12/24/17 12/24/17 Range/Units 23:39 05:29 05:29 WBC (3.8-10.6) k/uL RBC 3.89 L (4.30-5.90) m/uL Hgb 11.3 L (13.0-17.5) gm/dL Hct 37.3 L (39.0-53.0) % MCHC 30.4 L (31.0-37.0) g/dL Neutrophils # (1.3-7.7) k/uL Lymphocytes # 0.5 L (1.0-4.8) k/uL Sodium (137-145) mmol/L Chloride (98-107) mmol/L Carbon Dioxide (22-30) mmol/L Glucose (74-99) mg/dL Calcium (8.4-10.2) mg/dL Troponin I 0.293 H* 0.197 H* (0.000-0.034) ng/mL 12/24/17 Range/Units 05:29 WBC (3.8-10.6) k/uL RBC (4.30-5.90) m/uL Hgb (13.0-17.5) gm/dL Hct (39.0-53.0) % MCHC (31.0-37.0) g/dL Neutrophils # (1.3-7.7) k/uL Lymphocytes # (1.0-4.8) k/uL Sodium 133 L (137-145) mmol/L Chloride (98-107) mmol/L Carbon Dioxide (22-30) mmol/L Glucose (74-99) mg/dL Calcium 8.2 L (8.4-10.2) mg/dL Troponin I (0.000-0.034) ng/mL Microbiology - Last 24 Hours (Table) 12/22/17 09:00 Blood Culture - Preliminary Blood No Growth after 48 hours 12/23/17 03:09 Blood Culture - Preliminary Blood No Growth after 24 hours Assessment and Plan Assessment: Left-sided severe postoperative pleuritic chest pain Left-sided loculated pleural effusion appearing as a lung mass which is pleural based Low-grade Sirs early sepsis cannot be excluded with the presentation with hypotension did respond with crystalloids Severe COPD Recent perforated left diaphragm with fracture of costochondral junction requiring repair Hypertension hypertensive cardiovascular disease Generalized anxiety disorder History of paroxysmal atrial fibrillation couldn't tolerate Lopressor cardiology has evaluated him in the past not considered to be a candidate for anticoagulation Plan: Gentle rehydration Bronchodilators Hold on steroids agree with initiation of antibiotics with ID service has been consulted Consult thoracic surgery Dr. Avila for evaluation of pleural based loculated effusion/lung mass A computed tomography scan of the chest is being ordered May resume home medications including breathing treatments maintain patient on DVT and peptic ulcer disease prophylaxis increase activity as tolerated further recommendations pending plan of care as per clinical response of the patient Time with Patient: Greater than 30
--- NOTE | 2017-12-24 12:28 | P.PN ---
Subjective Progress Note Date: 12/24/17 Principal diagnosis: Left-sided severe pleuritic chest pain, loculated left pleural effusion with the severe,/abscess formation into the soft tissues, service, intermittent hypertension, severe COPD, perforated left diaphragm with fracture of costochondral junction status post repair of diaphragmatic and dislocation, generalized anxiety disorder, paroxysmal atrial fibrillation 12/24/2017, patient seen eval examined care plan discussed with the cardiovascular service and primary service, respiratory status overall stable and improved but still have significant pain requiring morphine every 6 hour cardiothoracic surgery is following the recommended for CT-guided or ultrasound- guided drainage by interventional radiology 12/23/2017, patient seen eval reexamined noted patient has slight fluid overload required IV Lasix continued to be on breathing treatments continue require pain medication seems to be controlling the severity of pain patient has been eval by cardiothoracic surgery furthermore definitely would intervention are being discussed Mr. Cheatham is a 72-year-old male well-known to me patient has a history of end- stage lung disease second to severe COPD emphysema patient has been doing relatively well since discharged recently after bilateral pneumonia treatment however started having recurrence of pain about 2 days ago patient was seen in the office yesterday his pain was minimal at that time he couldn't tolerate the [place] due to his the confusion and apneic episode he had some crackles present at the bases otherwise hemodynamic status was stable patient had at that time noted to have on outpatient setting low blood pressure however they did resolve after discontinuation of Lopressor patient was stable throughout the day however and of the day in the evening started having chest pain predominantly on the left side and dental pain becomes 10 out of 10 in addition subsequently patient started developing shortness of breath he started coughing with very thick tenacious yellowish-green mucus sputum and developed shortness of breath he was brought into the emergency department he was found to be did require a small bolus of crystalloid with with normal saline with the stabilization of blood pressure patient has been admitted into the hospital I've discussed with the emergency department service to consult Dr. Avlia as the chest x-ray performed today revealed density on the left side has progressed in size from 4 cm to 7 cm in addition to that I will ask them to obtain a computed tomography scan of the chest which can be done without contrast. Patient is well-known to me he has been hospitalized and later part of September for acute COPD exacerbation and early October he was found to have a perforated left diaphragm which was repaired by Dr. Avila patient subsequently was rehospitalized 2 times with pneumonia at bases was eventually discharged in stable condition after extensive IV antibiotics patient was evaluated by infectious disease services Dr. Ovalles at that time as well recommended patient to be treated with Augmentin on outpatient basis Objective - Vital Signs Vital signs: Vital Signs Temp 96.6 F L 12/24/17 05:53 Pulse 96 12/24/17 10:56 Resp 17 12/24/17 05:53 BP 110/67 12/24/17 05:53 Pulse Ox 97 12/24/17 05:53 Intake & Output 12/23/17 12/24/17 12/24/17 18:59 06:59 18:59 Intake Total 120 550 Output Total 1200 650 Balance 120 -1200 -100 Intake: Intake, IV Titration 350 Amount Meropenem 1 gm In Sodium 100 Chloride 0.9% 100 ml @ 100 mls/hr IVPB Q8HR [facility] Rx#:[id number] Vancomycin 1,500 mg In 250 Sodium Chloride 0.9% 250 ml @ 125 mls/hr IVPB Q12H [facility] Rx#:[id number] Oral 120 200 Output: Urine 1200 650 Other: Voiding Method Toilet Urinal # Voids 1 2 1 - Exam This is a well-developed well-nourished awake alert oriented 3 male Limitations: no limitations General appearance: alert, in no apparent distress Head exam: Present: atraumatic, normocephalic, normal inspection Eye exam: Present: normal appearance, PERRL, EOMI. Absent: scleral icterus, conjunctival injection, periorbital swelling ENT exam: Present: mucous membranes dry Neck exam: Present: normal inspection. Absent: tenderness, meningismus, lymphadenopathy Respiratory exam: Present: Bilateral basal rales noted with overall poor air entry, no wheezing are present, chest wall tenderness, noted mild chest wall tenderness on the left the incision site appears to be intact no definite wound dehiscence mild some localized erythema noted without any significant discharge , respiratory distress, wheezes, rhonchi, stridor noted, overall exam not much change compared to yesterday Cardiovascular Exam: Present: regular rate, normal rhythm, normal heart sounds. Absent: systolic murmur, diastolic murmur, rubs, gallop, clicks GI/Abdominal exam: Present: soft, normal bowel sounds. Absent: distended, tenderness, guarding, rebound, rigid, bruit, pulsatile mass, hernia Rectal exam: Present: deferred Extremities exam: Present: normal inspection, full ROM, normal capillary refill. Absent: tenderness, pedal edema, joint swelling, calf tenderness Back exam: Present: normal inspection Neurological exam: Present: alert, oriented X3, CN II-XII intact Psychiatric exam: Present: normal affect, normal mood Skin exam: Present: warm, dry, intact, normal color. Absent: rash - Labs CBC & Chem 7: 12/24/17 05:29 12/24/17 05:29 Labs: Abnormal Lab Results - Last 24 Hours (Table) 12/23/17 12/23/17 12/23/17 Range/Units 18:05 18:05 18:15 WBC 11.5 H (3.8-10.6) k/uL RBC 4.05 L (4.30-5.90) m/uL Hgb 12.1 L (13.0-17.5) gm/dL Hct 38.2 L (39.0-53.0) % MCHC (31.0-37.0) g/dL Neutrophils # 9.9 H (1.3-7.7) k/uL Lymphocytes # 0.5 L (1.0-4.8) k/uL Sodium 131 L (137-145) mmol/L Chloride 97 L (98-107) mmol/L Carbon Dioxide 20 L (22-30) mmol/L Glucose 146 H (74-99) mg/dL Calcium (8.4-10.2) mg/dL Troponin I 0.258 H* (0.000-0.034) ng/mL 12/23/17 12/24/17 12/24/17 Range/Units 23:39 05:29 05:29 WBC (3.8-10.6) k/uL RBC 3.89 L (4.30-5.90) m/uL Hgb 11.3 L (13.0-17.5) gm/dL Hct 37.3 L (39.0-53.0) % MCHC 30.4 L (31.0-37.0) g/dL Neutrophils # (1.3-7.7) k/uL Lymphocytes # 0.5 L (1.0-4.8) k/uL Sodium (137-145) mmol/L Chloride (98-107) mmol/L Carbon Dioxide (22-30) mmol/L Glucose (74-99) mg/dL Calcium (8.4-10.2) mg/dL Troponin I 0.293 H* 0.197 H* (0.000-0.034) ng/mL 12/24/17 Range/Units 05:29 WBC (3.8-10.6) k/uL RBC (4.30-5.90) m/uL Hgb (13.0-17.5) gm/dL Hct (39.0-53.0) % MCHC (31.0-37.0) g/dL Neutrophils # (1.3-7.7) k/uL Lymphocytes # (1.0-4.8) k/uL Sodium 133 L (137-145) mmol/L Chloride (98-107) mmol/L Carbon Dioxide (22-30) mmol/L Glucose (74-99) mg/dL Calcium 8.2 L (8.4-10.2) mg/dL Troponin I (0.000-0.034) ng/mL Microbiology - Last 24 Hours (Table) 12/22/17 09:00 Blood Culture - Preliminary Blood No Growth after 48 hours 12/23/17 03:09 Blood Culture - Preliminary Blood No Growth after 24 hours Assessment and Plan Assessment: Left-sided severe postoperative pleuritic chest pain Left thoracic wall seroma/abscess Left-sided loculated pleural effusion appearing as a lung mass which is pleural based Low-grade [place] early sepsis cannot be excluded with the presentation with hypotension did respond with crystalloids Severe COPD Recent perforated left diaphragm with fracture of costochondral junction requiring repair Hypertension hypertensive cardiovascular disease Generalized anxiety disorder History of paroxysmal atrial fibrillation couldn't tolerate Lopressor cardiology has evaluated him in the past not considered to be a candidate for anticoagulation Plan: Continue bronchodilators, continue current dose of Solu-Medrol was start tapering it down in next 24 hours Pain control Hold on steroids agree with initiation of antibiotics with ID service has been consulted Fading further intervention as per thoracic surgery A computed tomography scan of the chest reviewed and finding discussed May resume home medications including breathing treatments maintain patient on DVT and peptic ulcer disease prophylaxis increase activity as tolerated further recommendations pending plan of care as per clinical response of the patient Time with Patient: Greater than 30
[2017-12-24] MEDS: ASPIRIN 81 MG PO SCH (12:45)
[2017-12-24] MEDS ORDERED: MORPHINE SULFATE 4 MG/ML SYRINGE IVP STA (13:15)
--- NOTE | 2017-12-24 13:19 | CONS ---
CONSULTATION Mr. Amaral is a 72-year-old male with a prior history of chronic obstructive lung disease, who had a diaphragmatic herniation, underwent surgery and was readmitted to the hospital because of significant chest discomfort and dyspnea. During his previous admission, he had an episode of paroxysmal fibrillation and at that time, his echocardiogram revealed preserved left ventricular size and systolic function. Prior to his admission, the patient has done well. He has not had any symptoms of chest pain. He had no dizziness or palpitation. He was not aware of the atrial fibrillation. He was on beta rosalinda as an outpatient that was held because of a low blood pressure. He denies any prior history of peripheral edema until his recent admissions. He has no clear PND or orthopnea. He has no chest pain. No prior history of myocardial infarction. His coronary risk factors are remarkable for remote history of smoking. He is a nondiabetic. He has hyperlipidemia and hypertension. His medications at the time of admission include Flomax, omeprazole, Antivert, Singulair 10 mg daily, lovastatin 10 mg daily, Zestril 10 mg daily, DuoNeb, [place], Proscar, Pulmicort, and Ventolin. REVIEW OF SYSTEMS: RESPIRATORY SYSTEM: He has dyspnea on exertion. History of a chronic obstructive lung disease. He has a cough. GI SYSTEM: No recent GI bleeding. No peptic ulcer disease. SYSTEM: No dysuria or hematuria. NERVOUS SYSTEM: No history of stroke or seizure. PHYSICAL EXAMINATION: A 72-year-old male, alert, oriented, in no apparent distress. Blood pressure 110/60 with the heart rate in 90s. He had a temperature 101 yesterday. There is documented episode of heart rate in the one teens and 120s yet on the telemetry strip available to me he is only in sinus mechanism and sinus tachycardia. HEAD: Normocephalic. EYES: Sclerae anicteric. NECK: No bruit. LUNGS: With decreased air exchange. No wheezes. HEART: Regular rate and rhythm. S1, S2. No S3. No rub appreciated. ABDOMEN: Soft, nontender. Positive bowel sounds. No organomegaly. EXTREMITIES: +1 edema. LAB DATA: Lab data revealed troponin 0.258, 0.293, and 0.197. His NT proBNP is 2350. BUN and creatinine 15 and 0.81. Potassium 4.1. Hemoglobin of 11.3. His EKG revealed a sinus mechanism with no acute changes. IMPRESSION: 1. Prior episode of paroxysmal atrial fibrillation remains in sinus mechanism. 2. Mild elevation of NT proBNP and mild peripheral edema, probably related to the fluid overload from the prior admission. 3. Minimal elevation of troponin, most likely representing a type 2 event. No evidence to suggest primary ischemic event. 4. Prior history of hypertension. 5. History of hyperlipidemia. 6. Chronic obstructive lung disease. RECOMMENDATION: From the cardiac standpoint, I will continue IV diuresis for 24 hours. Follow his renal function. I will cut down the dose of lisinopril and increase the dose of his beta rosalinda. Follow his renal function and depending on his progress, further recommendation will be made. Thank you for this consult. Will follow with you. EDUIN / AMIEN: [id number] /
--- NOTE | 2017-12-24 14:16 | US ---
EXAMINATION TYPE: US viseral fluid drainage DATE OF EXAM: 12/24/2017 HISTORY: Seroma postop FINDINGS: Maximal barrier technique was utilized. The skin overlying a suitable path to the fluid wa s localized with ultrasound and the overlying skin prepped and draped. Lidocaine was used for local anesthesia. A skin jim made with a scalpel. Access was gained under direct ultrasound guidance to the fluid with a 21-gauge needle. Ultrasound was utilized using sterile technique. 8.5 [place] all-pur pose drainage catheter was introduced using trocar technique under direct ultrasound guidance. 20 cc serous sanguinous fluid returned. Catheter fixed to the skin and attached to gravity drainage. Hemostasis achieved. No immediate complication and the patient remained in stable condition. Post procedure chest x-ray pending. IMPRESSION: STATUS POST ULTRASOUND GUIDED SEROMA DRAINAGE, THIS PROCEDURE WAS PERFORMED BY THE UNDERS IGNED.
--- NOTE | 2017-12-24 14:48 | XR ---
EXAMINATION TYPE: XR chest 1V DATE OF EXAM: 12/24/2017 COMPARISON: Prior chest x-ray 12/23/2017 HISTORY: Seroma postop, status post drainage catheter placement TECHNIQUE: Single frontal view of the chest is obtained. FINDINGS: Interval placement of a drainage catheter overlying the left lower chest. No evident pneum othorax. Interstitium is prominent. Lung volumes are low and the patient is rotated. Heart size is li emilio stable. IMPRESSION: Interval tube placement as described. There may be reduction in pleural fluid.
[2017-12-24] MEDS: HEPARIN SODIUM,PORCINE 5,000 UNIT/ML 1 ML VIAL SQ SCH (16:17)
[2017-12-24] MEDS ORDERED: RX INFO: IV CONTRAST WAS GIVEN 1 EACH MISC MISCELLANE PRN (20:23)
[2017-12-24 20:28] LABS: Glucose,Whole Blood 218 mg/dL (75-99)
[2017-12-24] MEDS: TAMSULOSIN 0.4 MG CAP.ER.24H PO SCH (20:53)
[2017-12-24] MEDS: FINASTERIDE 5 MG TAB PO SCH (20:53)
[2017-12-24] MEDS: MONTELUKAST 10 MG TAB PO SCH (20:53)
[2017-12-24] MEDS: MELATONIN 5 MG TABLET PO SCH (20:53)
[2017-12-24] MEDS ORDERED: MELATONIN 5 MG TABLET PO SCH (21:00)
[2017-12-24] MEDS: METOPROLOL TARTRATE 25 MG TAB PO SCH (21:18)
[2017-12-24] MEDS: ATORVASTATIN 20 MG TAB PO SCH (21:18)
[2017-12-24] MEDS: INSULIN ASPART 100 UNIT/ML 1 ML 10 ML VIAL SQ SCH (21:18)
--- NOTE | 2017-12-24 22:10 | PN ---
PROGRESS NOTE DATE OF SERVICE: 12/24/2017 This 72-year-old gentleman admitted with shortness of breath possibly had left seroma formation on the CT scan. Patient also probably had evidence of CHF. The patient was started on IV diuretics. Multiple consultants are following the patient closely, including Cardiothoracic Surgery. The patient also had paroxysmal atrial fibrillation. Type 2 myocardial event was considered. The patient is being closely monitored. Past medical history reviewed. REVIEW OF SYSTEMS: CARDIOVASCULAR SYSTEM: As mentioned earlier. RESPIRATORY SYSTEM: As mentioned earlier. GI: No nausea, vomiting. : No dysuria or retention. NERVOUS SYSTEM: No numbness, weakness.. CURRENT MEDICATIONS: 1. Tylenol 650 q.6. 2. [place] 10 mg. 3. DuoNeb q.i.d. and p.r.n. 4. Xanax 0.25 t.i.d. 5. Aspirin 81 mg daily. 6. Lipitor 20 mg at bedtime. 7. Tessalon Perles. 8. Pulmicort 0.5 b.i.d. 9. Proscar 5 mg at bedtime. 10.Lasix 40 mg IV b.i.d. 11.Heparin 5000 units subcutaneously q.8. 12.Zestril 5 mg p.o. daily. 13.Antivert 25 mg p.o. daily. 14.Melatonin 5 mg at bedtime. 15.Meropenem 1 gram IV q.8. 16.Solu-Medrol 60 IV b.i.d. 17.Lopressor 25 mg p.o. b.i.d. 18.Vancomycin. 19.Singulair 10 mg at bedtime. 20.Morphine sulfate 4 mg IV q.4 p.r.n. 21.Multivitamins 1 p.o. daily. 22.Narcan 0.2 q.2 p.r.n. 23.Protonix 40 mg daily. 24.Senokot-S 1 tablet daily. 25.Flomax 0.4 daily. 26.Vancomycin. PHYSICAL EXAMINATION: Patient is alert and oriented x3. Pulse is 97, blood pressure 103/59, respiration 20, temperature 98.6, pulse ox 91% on 5 L. HEENT: Conjunctivae normal. Oral mucosa moist. NECK: No jugular venous distention. No carotid bruit. No lymph node enlargement. CARDIOVASCULAR SYSTEM: S1, S2 muffled. RESPIRATORY SYSTEM: Breath sounds diminished at the bases. A few scattered rhonchi and crackles. ABDOMEN: Soft, nontender. No mass palpable. LEGS: No edema. No swelling. NERVOUS SYSTEM: Higher functions as mentioned earlier. Moves all 4 limbs. No focal motor or sensory deficit. LYMPHATICS: No lymph node palpable in neck, axillae or groin. SKIN: No ulcer, rash, bleeding. LABS: Labs at this time show WBC 8.4, hemoglobin 11.3, sodium 133, troponin 0.258. ASSESSMENT: 1. Shortness of breath, possibly multifactorial, with possible chronic obstructive pulmonary disease, acute exacerbation, with congestive heart failure, acute exacerbation, with acute on chronic diastolic dysfunction, ejection fraction 50% to 55%, with acute on chronic diastolic dysfunction. 2. Moderate mitral regurgitation. 3. Mild to moderate tricuspid regurgitation on two-dimensional echocardiogram. 4. Left pleural effusion herniated between the ribs into the soft tissue. 5. Seroma. 6. Hiatal hernia. 7. Degenerative joint disease of the spine. 8. Chronic obstructive pulmonary disease. 9. Hypertension. 10.Hyperlipidemia. 11.History of hernia repair. 12.History of tonsillectomy. 13.History of left thoracotomy and closure of diaphragmatic hernia with a patch and repair of costochondral dislocation with subsequent lung herniation. 14.Remote history of nicotine dependence. RECOMMENDATIONS AND DISCUSSION: In this 72-year-old gentleman who presented with multiple medical issues, we will monitor the patient closely, continue the current medications, continue with symptomatic treatment. Closely monitor. I would also recommend a CT scan of the abdomen and pelvis to complete the workup. Guarded prognosis. Further recommendations to follow. MMODL / IJN: [id number] /
--- NOTE | 2017-12-24 23:35 | P.PN ---
Subjective Progress Note Date: 12/24/17 Principal diagnosis: Shortness of breath Pleasant 72-year-old male presents to Hospital for significant and ongoing pain. This pleasant gentleman relates that in early October he was having significant difficulty with severe cough related to COPD and underlying infection. His related that he coughed so hard he caused a costochondral dislocation as well as a left diaphragmatic rupture with herniation. He was evaluated by Dr. Avila to cardiothoracic surgery was taken to the operating room where a thoracotomy was performed for appear of the diaphragm with mesh as well as repair of the costochondral dislocation. Postoperatively the patient was doing relatively well and was sent home on 11/26/2017. In home setting was doing relatively well. Over significant difficulties was more cough his pain became uncontrolled presented back to the emergency center and was admitted earlier in November. The patient again improved and has been home recovering further but then again developed severe pain to the left chest. Follow-up computed tomography scan has been performed in the emergency center and there is a significant increase in the amount of fluid that is outside of the pleural space into the tissue of the chest. This appears to be causing him severe pain he subsequently is admitted. Infectious disease consult for antibiotic therapy. 12/23/2017 the patient continues to feel poorly. He is quite short of breath and continues to have pain into his chest. I discussed the case with the nurse practitioner of the thoracic surgeon, the patient also may recurrence of some atrial fibrillation and is having some regularity at this time is having some increasing shortness of breath. Cardiology was requested to see him again. Patient's family is distinctly unhappy that the patient is having difficulties with multiple hospitalizations, they were unpleasant to this provider and although I was trying to provide some information admitted very clear that I am not the cardiac thoracic surgeon and I'm only a it consultant trying to work to help him feel better. 12/24/2017 reveals the patient feeling considerably better today. The percutaneous drainage has occurred which has allowed an immediate reduction in his pain and discomfort and shortness of breath is much improved. He is considerably happier today than yesterday. His is also much more content seen at the patient is feeling better. Objective - Vital Signs Vital signs: Vital Signs Temp 96.7 F L 12/24/17 22:51 Pulse 87 12/24/17 22:51 Resp 18 12/24/17 22:51 BP 116/56 12/24/17 22:51 Pulse Ox 91 L 12/24/17 22:51 Intake & Output 12/24/17 12/24/17 12/25/17 06:59 18:59 06:59 Intake Total 650 Output Total 1200 1850 60 Balance -1200 -1200 -60 Weight 87.09 kg Intake: Intake, IV Titration 450 Amount Meropenem 1 gm In Sodium 200 Chloride 0.9% 100 ml @ 100 mls/hr IVPB Q8HR [facility]AN[facility] Rx#:[id number] Vancomycin 1,500 mg In 250 Sodium Chloride 0.9% 250 ml @ 125 mls/hr IVPB Q12H [facility]AN[facility] Rx#:[id number] Oral 200 Output: Drainage 60 Left Lateral Chest 60 Urine 1200 1850 Other: Voiding Method Bedside Commode Urinal # Voids 2 1 - Exam Pleasant 72-year-old gentleman who relates he is much more comfortable now than 24 hours ago. HEENT: Anicteric conjunctiva are pink and moist nasal mucosa grossly intact without significant lesions, there is no thrush. Neck: The neck is supple without significant lymphadenopathy or thyromegaly. Lungs: They're symmetrical air entry there are crackles at the left base but no britney bronchial sounds no dullness or egophony. Is able to take good deep breaths with only minimal discomfort and does not have significant coughing with a deep breath. The percutaneous drain is in place and only a scant amount of a thin serosanguineous material is noted. Heart: Irregular with an audible S1 and S2 without S4. There is no significant murmur click or rub, PMI was nondisplaced. Abdomen: Positive bowel sounds soft and nontender without palpable masses or organomegaly. There was no guarding or rebound. Extremities: The upper extremities have excellent pulses they are symmetric, no significant petechiae or telangiectasia. No splinter hemorrhages were noted. The lower extremities are free from significant edema. The peripheral pulses were 2+ and symmetric. Neuro: Awake alert oriented to person place and time. There are no acute new gross focal sensory motor deficits. Surgical wound to the left chest in the thoracotomy position is well-healed however erythema persists dressing is in place for the percutaneous drainage - Labs CBC & Chem 7: 12/24/17 05:29 12/24/17 05:29 Labs: Abnormal Lab Results - Last 24 Hours (Table) 12/23/17 12/24/17 12/24/17 Range/Units 23:39 05:29 05:29 RBC 3.89 L (4.30-5.90) m/uL Hgb 11.3 L (13.0-17.5) gm/dL Hct 37.3 L (39.0-53.0) % MCHC 30.4 L (31.0-37.0) g/dL Lymphocytes # 0.5 L (1.0-4.8) k/uL Sodium (137-145) mmol/L POC Glucose (mg/dL) (75-99) mg/dL Calcium (8.4-10.2) mg/dL Troponin I 0.293 H* 0.197 H* (0.000-0.034) ng/mL 12/24/17 12/24/17 Range/Units 05:29 20:26 RBC (4.30-5.90) m/uL Hgb (13.0-17.5) gm/dL Hct (39.0-53.0) % MCHC (31.0-37.0) g/dL Lymphocytes # (1.0-4.8) k/uL Sodium 133 L (137-145) mmol/L POC Glucose (mg/dL) 218 H (75-99) mg/dL Calcium 8.2 L (8.4-10.2) mg/dL Troponin I (0.000-0.034) ng/mL Microbiology - Last 24 Hours (Table) 12/24/17 14:51 Gram Stain - Preliminary Aspirate Body Fluid Culture - Preliminary 12/22/17 09:00 Blood Culture - Preliminary Blood No Growth after 48 hours 12/23/17 03:09 Blood Culture - Preliminary Blood No Growth after 24 hours Laboratory Results WBC 8.5 k/uL (3.8-10.6) 12/24/17 05:29 RBC 3.89 m/uL (4.30-5.90) L 12/24/17 05:29 Hgb 11.3 gm/dL (13.0-17.5) L 12/24/17 05:29 Hct 37.3 % (39.0-53.0) L 12/24/17 05:29 MCV 96.0 fL (80.0-100.0) 12/24/17 05:29 MCH 29.1 pg (25.0-35.0) 12/24/17 05: MCHC 30.4 g/dL (31.0-37.0) L 12/24/17 05:29 RDW 13.1 % (11.5-15.5) 12/24/17 05:29 Plt Count 403 k/uL (150-450) 12/24/17 05:29 Neutrophils % 81 % 12/24/17 05: Lymphocytes % 6 % 12/24/17 05:29 Monocytes % 7 % 12/24/17 05:29 Eosinophils % 3 % 12/24/17 05:29 Basophils % 1 % 12/24/17 05:29 Neutrophils # 6.9 k/uL (1.3-7.7) 12/24/17 05:29 Lymphocytes # 0.5 k/uL (1.0-4.8) L 12/24/17 05: Monocytes # 0.6 k/uL (0-1.0) 12/24/17 05: Eosinophils # 0.3 k/uL (0-0.7) 12/24/17 05:29 Basophils # 0.1 k/uL (0-0.2) 12/24/17 05:29 Hypochromasia Slight 12/24/17 05:29 PT 10.2 sec (9.0-12.0) 12/22/17 09:00 INR 1.0 (<1.2) 12/22/17 09:00 APTT 23.3 sec (22.0-30.0) 12/22/17 09:00 Sodium 133 mmol/L (137-145) L 12/24/17 05:29 Potassium 4.1 mmol/L (3.5-5.1) 12/24/17 05:29 Chloride 100 mmol/L (98-107) 12/24/17 05:29 Carbon Dioxide 23 mmol/L (22-30) 12/24/17 05:29 Anion Gap 10 mmol/L 12/24/17 05:29 BUN 15 mg/dL (9-20) 12/24/17 05:29 Creatinine 0.81 mg/dL (0.66-1.25) 12/24/17 05:29 Est GFR (MDRD) Af Amer >60 (>60 ml/min/1.73 sqM) 12/24/17 05:29 Est GFR (MDRD) Non-Af >60 (>60 ml/min/1.73 sqM) 12/24/17 05:29 Glucose 95 mg/dL (74-99) 12/24/17 05:29 POC Glucose (mg/dL) 218 mg/dL (75-99) H 12/24/17 20:26 POC Glu Leather Patcher Danette Eduardo 12/24/17 20:26 Plasma Lactic Acid Geo 0.9 mmol/L (0.7-2.0) 12/23/17 03:09 Calcium 8.2 mg/dL (8.4-10.2) L 12/24/17 05:29 Magnesium 2.0 mg/dL (1.6-2.3) 12/22/17 09:00 Total Bilirubin 1.2 mg/dL (0.2-1.3) 12/22/17 09:00 AST 31 U/L (17-59) 12/22/17 09:00 ALT 30 U/L (21-72) 12/22/17 09:00 Alkaline Phosphatase 99 U/L (38-126) 12/22/17 09:00 Total Creatine Kinase 39 U/L (55-170) L 12/22/17 09:00 CK-MB (CK-2) 1.4 ng/mL (0.0-2.4) 12/22/17 09:00 CK-MB (CK-2) Rel Index 3.6 12/22/17 09:00 Troponin I 0.197 ng/mL (0.000-0.034) H* 12/24/17 05:29 NT-Pro-B Natriuret Pep 2350 pg/mL 12/23/17 18:05 Total Protein 6.0 g/dL (6.3-8.2) L 12/22/17 09:00 Albumin 3.0 g/dL (3.5-5.0) L 12/22/17 09:00 Influenza Type A RNA Not Detected (Not Detectd) 12/22/17 09:00 Influenza Type B (PCR) Not Detected (Not Detectd) 12/22/17 09:00 Microbiology 12/24/17 14:51 Aspirate Gram Stain - Preliminary 12/24/17 14:51 Aspirate Body Fluid Culture - Preliminary 12/22/17 09:00 Blood Blood Culture - Preliminary No Growth after 48 hours 12/23/17 03:09 Blood Blood Culture - Preliminary No Growth after 24 hours Assessment and Plan (1) Diaphragmatic hernia Current Visit: No Status: Acute Code(s): K44.9 - DIAPHRAGMATIC HERNIA WITHOUT OBSTRUCTION OR GANGRENE SNOMED Code(s): 09464545 (2) Pleural effusion Current Visit: No Status: Acute Code(s): J90 - PLEURAL EFFUSION, NOT ELSEWHERE CLASSIFIED SNOMED Code(s): 85136356 (3) COPD (chronic obstructive pulmonary disease) Current Visit: Yes Status: Chronic Code(s): J44.9 - CHRONIC OBSTRUCTIVE PULMONARY DISEASE, UNSPECIFIED SNOMED Code(s): 86240499 (4) Chest wall abscess Narrative/Plan: 72-year-old male presents to Hospital with a marked increase of pain to his left chest. This is quite similar to what he's been suffering from in the recent past. It is noted he started with a diaphragmatic rupture requiring thoracic surgical repair. Since then he's been having some difficulties with the current infection at that site. He was actually doing relatively well over the last many days until he had the sudden onset of severe pain and left chest making it hard to breathe every breath was extremely painful because he presented to the emergency center. Fortunately with narcotic therapies he is feeling better at this time. We will initiate antibiotic therapy at this time vancomycin and meropenem will be utilized because he's having some fever. The cardiac thoracic surgical team has been consulted and we await their input as far as her plan. The patient is significant increase the amount of fluid into the soft tissue of the chest wall. An very concerned that this is abscess given the erythema tenderness pain and fever that he is suffering from. Cultures are pending. If the site is incised and drained certainly deep cultures will be helpful to further direct ongoing antibiotic therapy. Pain control currently is adequate. Continue his respiratory treatments and oxygen therapy. She has importance of adequate protein intake for his healing. Multivitamin is ensured. 12/23/2017 cultures are in process at this point in time. Continue intravenous antibiotic therapy. Have asked for cardiology consultation with concerns to recurrent her intermittent atrial fibrillation. Have discussed the case with current thoracic surgery and hopefully will proceed to surgical intervention in the near future. 12/24/2017 reveals the patient to be considerably improved now that he has had the percutaneous drainage of the fluid collection to the left anterior chest wall catheter appears site of his ruptured diaphragmatic hernia. The patient is definitely improved today and is much more content. Cardiology has seen him in the area utilizing aspirin therapy at this time they have not been able to replicate any further atrial fibrillation. He was monitored closely by cardiology in the outpatient setting. Cardiothoracic surgery was also monitored to ensure that he has a good result with percutaneous drainage. They will follow with recurrent scans to ensure that it is improving. As to antibiotic therapy cultures from the percutaneous drainage for further help direct but likely will utilize outpatient intravenous antibiotic therapy with vancomycin. Current Visit: Yes Status: Acute Code(s): L02.213 - CUTANEOUS ABSCESS OF CHEST WALL SNOMED Code(s): 61415711
[2017-12-25] MEDS: HEPARIN SODIUM,PORCINE 5,000 UNIT/ML 1 ML VIAL SQ SCH ×4 (01:02→23:22)
[2017-12-25] MEDS: MEROPENEM 1 GM in SODIUM CHLORIDE 0.9% 100 ML IVPB SCH ×4 (01:02→23:22)
[2017-12-25] MEDS: ALPRAZolam 0.25 MG TAB PO PRN ×2 (01:13→21:06)
[2017-12-25 01:46] LABS: Hemoglobin A1C 5.9 % (4.0-6.0)
[2017-12-25] MEDS: MORPHINE SULFATE 4 MG/ML SYRINGE IVP PRN (06:11)
[2017-12-25] MEDS: FUROSEMIDE 10 MG/ML 4 ML VIAL IV SCH ×2 (06:12→16:05)
[2017-12-25] MEDS: IOHEXOL 350 MG/ML 25 ML BOTTLE (ORAL USE) PO PRN ×2 (06:41→07:20)
[2017-12-25] MEDS: INSULIN ASPART 100 UNIT/ML 1 ML 10 ML VIAL SQ SCH ×4 (07:21→21:07)
[2017-12-25 07:29] LABS: Glucose,Whole Blood 138 mg/dL (75-99)
[2017-12-25] MEDS ORDERED: VANCOMYCIN TROUGH DUE 1 EACH MISC MISCELLANE ONE (08:00)
[2017-12-25] MEDS: IPRATROPIUM-ALBUTEROL 3 ML NEB INHALATION SCH ×4 (08:15→20:23)
[2017-12-25] MEDS: BUDESONIDE 0.5 MG/2 ML NEBU INHALATION SCH ×2 (08:15→20:23)
[2017-12-25] MEDS: METOPROLOL TARTRATE 25 MG TAB PO SCH ×2 (08:26→20:56)
[2017-12-25] MEDS: methylPREDNISolone SOD SUCCI 125 MG/2 ML VIAL IV SCH (08:26)
[2017-12-25] MEDS: MULTIVITAMINS, THERA 1 EACH TAB PO SCH (08:26)
[2017-12-25] MEDS: LISINOPRIL 5 MG TAB PO SCH (08:27)
[2017-12-25] MEDS: PANTOPRAZOLE 40 MG TABLET PO SCH (08:27)
[2017-12-25] MEDS: ASPIRIN 81 MG PO SCH (08:27)
[2017-12-25] MEDS: MECLIZINE 25 MG TAB PO SCH (08:27)
[2017-12-25] MEDS: BENZONATATE 100 MG CAP PO SCH ×3 (08:27→20:56)
[2017-12-25] MEDS: SENNOSIDES-DOCUSATE SODIUM 1 EACH TAB PO SCH ×2 (08:27→20:56)
[2017-12-25 08:38] LABS: Basophils % (A) 0 %; Eosinophils % (A) 0 %; HCT 33.3 % (39.0-53.0); HGB 10.5 gm/dL (13.0-17.5); Lymphocytes # (A) 0.5 k/uL (1.0-4.8); Lymphocytes % (A) 4 %; MCH 29.4 pg (25.0-35.0); MCHC 31.6 g/dL (31.0-37.0); MCV 92.9 fL (80.0-100.0); Mean Platelet Volume 6.5; Monocytes # (A) 0.5 k/uL (0-1.0); Monocytes % (A) 4 %; Neutrophils # (A) 10.8 k/uL (1.3-7.7); Neutrophils % (A) 91 %; Platelet Count 472 k/uL (150-450); RBC 3.58 m/uL (4.30-5.90); RDW 13.1 % (11.5-15.5); WBC 11.9 k/uL (3.8-10.6)
[2017-12-25 08:42] LABS: Anion Gap 9 mmol/L; Blood Urea Nitrogen 21 mg/dL (9-20); Calcium 8.4 mg/dL (8.4-10.2); Carbon Dioxide 24 mmol/L (22-30); Chloride 99 mmol/L (98-107); Glucose 144 mg/dL (74-99); Potassium 4.2 mmol/L (3.5-5.1); Sodium 132 mmol/L (137-145)
--- NOTE | 2017-12-25 08:50 | CT ---
EXAMINATION TYPE: CT abdomen pelvis w con DATE OF EXAM: 12/25/2017 COMPARISON: 11/18/2017 and 12/22/2017 HISTORY: 72-year-old male with abdominal wall hernia TECHNIQUE: Contiguous axial scanning of the abdomen and pelvis following administration of 100 ml Omn ipaque 300 IV contrast. Delayed images through the kidneys and coronal/sagittal reconstructions perf ormed. CT DLP: 1054.1 mGycm Automated exposure control for dose reduction was used. FINDINGS: Heart is normal size without pericardial effusion. There is a small residual left pleural effusion. A posterolateral left basilar pigtail catheter is present in the pleural space with a evacuation of fl uid around the catheter and. There is a fracture of the left posterolateral 10th rib with one shafts width of displacement. As the rib comes around to the anterolateral aspect, there is a 5.9 x 5.9 x 1.8 cm fluid collection interpo sed along the lower anterolateral thoracoabdominal musculature at the rib end extending along the darlene th intercostal space and along the inferior aspect of some apparent surgical patch material. Underlying emphysematous change. No focal liver lesion or biliary ductal dilatation. Portal venous system is patent. Adrenal glands, k idneys, spleen, pancreas appear within normal limits. No dilated small bowel, free fluid, or free air. Normal appendix. Moderate stool within the colon. There is some minimal residual inflammatory omental fat stranding along the left upper quadrant underlying the patient's surgical patch material No mesenteric or retroperitoneal lymphadenopathy. Bladder is urine distended. Prostate gland is prominent measuring 4.1 cm wide. No abnormal fluid delta ection in the pelvis or pelvic lymphadenopathy. Moderate atherosclerotic calcifications in the distal abdominal aorta and iliac arteries. Bones: Mild degenerative changes at the hips and SI joints. Additional multilevel degenerative change s throughout the lumbar spine with grade 1 anterolisthesis at L4-L5. Degenerative disc disease lower thoracic spine. IMPRESSION: 1. LEFT BASILAR PIGTAIL PLEURAL CATHETER. THE PREVIOUS LARGE LOCULATED PLEURAL BASED AND CONTIGUOUS C HEST WALL FLUID COLLECTION HAS ESSENTIALLY RESOLVED. 2. POSTTHORACOTOMY AND DIAPHRAGMATIC HERNIA REPAIR CHANGES. THERE IS SOME TYPE OF SURGICAL PATCH MATE RIAL IN THE ANTEROLATERAL LEFT NINTH INTERCOSTAL SPACE. JUST ALONG THE INFERIOR ASPECT OF THIS PATCH MATERIAL AND AT THE LEFT 10TH RIB END, THERE IS A 5.9 X 5.9 X 1.8 CM FLUID COLLECTION ALONG THE THORA COABDOMINAL WALL MUSCULATURE THAT COULD REPRESENT POSTOPERATIVE SEROMA OR AN ABSCESS. 3. REDEMONSTRATED IS A FRACTURE OF THE LEFT POSTEROLATERAL 10TH RIB WITH ONE SHAFT'S WIDTH OF DISPLAC EMENT. A SMALL LEFT PLEURAL EFFUSION REMAINS.
--- NOTE | 2017-12-25 08:52 | XR ---
EXAMINATION TYPE: XR chest 2V DATE OF EXAM: 12/25/2017 COMPARISON: 12/23/2017 TECHNIQUE: PA and lateral views submitted. HISTORY: Pain FINDINGS: Heart is prominent. Underlying COPD and left basilar subsegmental consolidation are stable. There is a catheter overlying the left lung base. Hypertrophic and degenerative change of the spine noted. Coa rsened interstitium stable. IMPRESSION: 1. Left-sided catheter noted with persistent pleural-based density in the lateral view which may be s lightly improved. Could represent loculated fluid rather than mass. 2. COPD and interstitial prominence which may been the basis of chronic interstitial lung disease. Ve nous congestion or pneumonitis not excluded.
[2017-12-25] MEDS: VANCOMYCIN 1,500 MG in SODIUM CHLORIDE 0.9% 250 ML IVPB SCH ×2 (08:59→20:56)
--- NOTE | 2017-12-25 09:13 | P.PN ---
Subjective Progress Note Date: 12/25/17 Principal diagnosis: Left chest surgical site subcutaneous fluid collection, postoperative left- sided chest pain. Previous medical history of COPD, previous tobacco dependence , hypertension, hyperlipidemia, prostate disorder, Mnire's disease, hearing disorder. Status post left thoracotomy closure of diaphragmatic hernia with patch, repair of costochondral dislocation and subsequent lung herniation completed 11/22/2017. Recent diagnosis of paroxysmal atrial fibrillation last admission, placed on Lopressor which the patient stopped at home, not a candidate for anticoagulation per cardiology. POD #1 ultrasound-guided seroma drainage by interventional radiology Patient's currently sitting up in bed in no acute distress. Patient states some of his pain and much of the pressure he was feeling has been relieved since drainage yesterday. His states that he is still having some pain and shortness of breath. Extensive discussion was had with the patient and his reinforcing the fact that the pain may persist for several months and that shortness of breath is a component of COPD. Objective - Vital Signs Vital signs: Vital Signs Temp 97.6 F 12/25/17 06:08 Pulse 94 12/25/17 08:25 Resp 18 12/25/17 08:15 BP 142/82 12/25/17 06:08 Pulse Ox 92 L 12/25/17 06:08 Intake & Output 12/24/17 12/25/17 12/25/17 18:59 06:59 18:59 Intake Total 650 Output Total 1850 1140 Balance -1200 -1140 Weight 87.09 kg 87.9 kg Intake: Intake, IV Titration 450 Amount Meropenem 1 gm In Sodium 200 Chloride 0.9% 100 ml @ 100 mls/hr IVPB Q8HR [facility] Rx#:[id number] Vancomycin 1,500 mg In 250 Sodium Chloride 0.9% 250 ml @ 125 mls/hr IVPB Q12H [facility] Rx#:[id number] Oral 200 Output: Drainage 90 Left Lateral Chest 90 Urine 1850 1050 Other: Voiding Method Bedside Commode Urinal # Voids 1 - Constitutional General appearance: Present: cooperative, no acute distress - Respiratory Details: Lungs sounds clear bilaterally except coarse breath sounds in the left lung base. Respirations even, nonlabored. Currently on 4 L nasal cannula with oxygen saturation in the mid 90s. Able to achieve 1500 mL on his incentive spirometry. Left sided pigtail catheter present with 60 mL of thin serous drainage since his procedure yesterday. - Cardiovascular Details: S1, S2 present. Regular rate and rhythm, sinus rhythm on telemetry. Palpable peripheral pulses bilaterally. Trace bilateral lower extremity edema still present. No calf pain or tenderness noted. - Gastrointestinal Gastrointestinal Comment(s): Abdomen soft, nontender, nondistended. Active bowel sounds 4 quadrants. Tolerating diet. - Genitourinary Genitourinary Comment(s): Continues to void clear, yellow urine. - Integumentary Integumentary Comment(s): Skin is warm and dry with evidence of good perfusion. Left lateral thoracotomy incisions well-healed. - Neurologic Neurologic: Present: CNII-XII intact - Musculoskeletal Musculoskeletal: Present: gait normal, strength equal bilaterally - Psychiatric Psychiatric: Present: A&O x's 3, appropriate affect, intact judgment & insight - Allied health notes Allied health notes reviewed: nursing - Labs CBC & Chem 7: 12/25/17 08:13 12/25/17 08:13 Labs: Abnormal Lab Results - Last 24 Hours (Table) 12/24/17 12/24/17 12/24/17 Range/Units 05:29 05:29 20:26 WBC (3.8-10.6) k/uL RBC 3.89 L (4.30-5.90) m/uL Hgb 11.3 L (13.0-17.5) gm/dL Hct 37.3 L (39.0-53.0) % MCHC 30.4 L (31.0-37.0) g/dL Plt Count (150-450) k/uL Neutrophils # (1.3-7.7) k/uL Lymphocytes # 0.5 L (1.0-4.8) k/uL Sodium 133 L (137-145) mmol/L BUN (9-20) mg/dL Glucose (74-99) mg/dL POC Glucose (mg/dL) 218 H (75-99) mg/dL Calcium 8.2 L (8.4-10.2) mg/dL 12/25/17 12/25/17 12/25/17 Range/Units 07:21 08:13 08:13 WBC 11.9 H (3.8-10.6) k/uL RBC 3.58 L (4.30-5.90) m/uL Hgb 10.5 L (13.0-17.5) gm/dL Hct 33.3 L (39.0-53.0) % MCHC (31.0-37.0) g/dL Plt Count 472 H (150-450) k/uL Neutrophils # 10.8 H (1.3-7.7) k/uL Lymphocytes # 0.5 L (1.0-4.8) k/uL Sodium 132 L (137-145) mmol/L BUN 21 H (9-20) mg/dL Glucose 144 H (74-99) mg/dL POC Glucose (mg/dL) 138 H (75-99) mg/dL Calcium (8.4-10.2) mg/dL Microbiology - Last 24 Hours (Table) 12/23/17 03:09 Blood Culture - Preliminary Blood No Growth after 48 hours 12/24/17 14:51 Gram Stain - Preliminary Aspirate Body Fluid Culture - Preliminary 12/22/17 09:00 Blood Culture - Preliminary Blood No Growth after 48 hours - Imaging and Cardiology Chest x-ray: report reviewed, image reviewed CT scan - abdomen: report reviewed, image reviewed Assessment and Plan (1) Pleural mass Current Visit: Yes Status: Chronic Code(s): J94.9 - PLEURAL CONDITION, UNSPECIFIED SNOMED Code(s): 728612025 (2) Postoperative pain Current Visit: Yes Status: Chronic Code(s): G89.18 - OTHER ACUTE POSTPROCEDURAL PAIN SNOMED Code(s): 410827202 (3) Mnire's disease Current Visit: No Status: Chronic Code(s): H81.09 - MENIERE'S DISEASE, UNSPECIFIED EAR SNOMED Code(s): 12603613 (4) Paroxysmal atrial fibrillation Current Visit: Yes Status: Acute Code(s): I48.0 - PAROXYSMAL ATRIAL FIBRILLATION SNOMED Code(s): 685081079 (5) COPD (chronic obstructive pulmonary disease) Current Visit: Yes Status: Chronic Code(s): J44.9 - CHRONIC OBSTRUCTIVE PULMONARY DISEASE, UNSPECIFIED SNOMED Code(s): 91684325 (6) Hard of hearing Current Visit: Yes Status: Chronic Code(s): H91.90 - UNSPECIFIED HEARING LOSS, UNSPECIFIED EAR SNOMED Code(s): 63891324 (7) Hyperlipidemia Current Visit: No Status: Chronic Code(s): E78.5 - HYPERLIPIDEMIA, UNSPECIFIED SNOMED Code(s): 67023435 (8) Hypertension Current Visit: No Status: Chronic Code(s): I10 - ESSENTIAL (PRIMARY) HYPERTENSION SNOMED Code(s): 75890524 (9) Prostate disorder Current Visit: No Status: Chronic Code(s): N42.9 - DISORDER OF PROSTATE, UNSPECIFIED SNOMED Code(s): 34585207 Plan: 1. Pain control with ordered medications. 2. Antibiotic management per infectious disease. 3. Continue pigtail drain. Will monitor output. To be discontinued when appropriate by interventional radiology. 4. Wean O2 as tolerated.Encourage incentive spirometry use 10 times every hour. 5. GI/DVT prophylaxis. 6. Will monitor x-rays. 7. Paroxysmal atrial fibrillation management per cardiology. 8. Bronchodilators, steroids per pulmonology. 9. Continue to reinforce COPD teaching with patient and . 10. More recommendations to follow. Time with Patient: Greater than 30
--- NOTE | 2017-12-25 10:09 | P.PN ---
Subjective Progress Note Date: 12/25/17 Principal diagnosis: Left-sided severe pleuritic chest pain, loculated left pleural effusion with the severe,/abscess formation into the soft tissues, service, intermittent hypertension, severe COPD, perforated left diaphragm with fracture of costochondral junction status post repair of diaphragmatic and dislocation, generalized anxiety disorder, paroxysmal atrial fibrillation 12/25/2017, patient seen eval reexamined during the rounds he is sitting upright on the bed breathing comfortably severity of pain is better he gets short of breath on activity and exertion currently is on 4 L oxygen, patient underwent CT-guided pleural drainage catheter placement by interventional radiology about 100 mL of serous sanguinous fluid has been removed final ID and cultures are pending preliminary Gram stain revealed absence of organism however many white cells are seen, blood cultures 2 so far has been negative, labs reviewed medications reviewed we'll continue breathing treatment however start tapering down the steroids care plan discussed with the patient and at length patient may very well require home IV antibiotics via PICC line 12/24/2017, patient seen eval examined care plan discussed with the cardiovascular service and primary service, respiratory status overall stable and improved but still have significant pain requiring morphine every 6 hour cardiothoracic surgery is following the recommended for CT-guided or ultrasound- guided drainage by interventional radiology 12/23/2017, patient seen eval reexamined noted patient has slight fluid overload required IV Lasix continued to be on breathing treatments continue require pain medication seems to be controlling the severity of pain patient has been eval by cardiothoracic surgery furthermore definitely would intervention are being discussed Mr. Cheatham is a 72-year-old male well-known to me patient has a history of end- stage lung disease second to severe COPD emphysema patient has been doing relatively well since discharged recently after bilateral pneumonia treatment however started having recurrence of pain about 2 days ago patient was seen in the office yesterday his pain was minimal at that time he couldn't tolerate the [place] due to his the confusion and apneic episode he had some crackles present at the bases otherwise hemodynamic status was stable patient had at that time noted to have on outpatient setting low blood pressure however they did resolve after discontinuation of Lopressor patient was stable throughout the day however and of the day in the evening started having chest pain predominantly on the left side and dental pain becomes 10 out of 10 in addition subsequently patient started developing shortness of breath he started coughing with very thick tenacious yellowish-green mucus sputum and developed shortness of breath he was brought into the emergency department he was found to be did require a small bolus of crystalloid with with normal saline with the stabilization of blood pressure patient has been admitted into the hospital I've discussed with the emergency department service to consult Dr. Avila as the chest x-ray performed today revealed density on the left side has progressed in size from 4 cm to 7 cm in addition to that I will ask them to obtain a computed tomography scan of the chest which can be done without contrast. Patient is well-known to me he has been hospitalized and later part of September for acute COPD exacerbation and early October he was found to have a perforated left diaphragm which was repaired by Dr. Avila patient subsequently was rehospitalized 2 times with pneumonia at bases was eventually discharged in stable condition after extensive IV antibiotics patient was evaluated by infectious disease services Dr. Ovalles at that time as well recommended patient to be treated with Augmentin on outpatient basis Objective - Vital Signs Vital signs: Vital Signs Temp 97.6 F 12/25/17 06:08 Pulse 94 12/25/17 08:25 Resp 18 12/25/17 08:15 BP 142/82 12/25/17 06:08 Pulse Ox 92 L 12/25/17 06:08 Intake & Output 12/24/17 12/25/17 12/25/17 18:59 06:59 18:59 Intake Total 650 Output Total 1850 1140 Balance -1200 -1140 Weight 87.09 kg 87.9 kg Intake: Intake, IV Titration 450 Amount Meropenem 1 gm In Sodium 200 Chloride 0.9% 100 ml @ 100 mls/hr IVPB Q8HR [facility] Rx#:[id number] Vancomycin 1,500 mg In 250 Sodium Chloride 0.9% 250 ml @ 125 mls/hr IVPB Q12H [facility] Rx#:[id number] Oral 200 Output: Drainage 90 Left Lateral Chest 90 Urine 1850 1050 Other: Voiding Method Bedside Commode Urinal # Voids 1 - Exam This is a well-developed well-nourished awake alert oriented 3 male Limitations: no limitations General appearance: alert, in no apparent distress Head exam: Present: atraumatic, normocephalic, normal inspection Eye exam: Present: normal appearance, PERRL, EOMI. Absent: scleral icterus, conjunctival injection, periorbital swelling ENT exam: Present: mucous membranes dry Neck exam: Present: normal inspection. Absent: tenderness, meningismus, lymphadenopathy Respiratory exam: Present: Bilateral basal few rales noted with overall improved air entry, no wheezing are present, chest wall tenderness, noted mild chest wall tenderness on the left the incision site appears to be intact no definite wound dehiscence mild some localized erythema noted without any significant discharge, respiratory distress, wheezes, rhonchi, stridor noted, overall exam not much change compared to yesterday, pleural drainage catheter is present connected with PITA drain Cardiovascular Exam: Present: regular rate, normal rhythm, normal heart sounds. Absent: systolic murmur, diastolic murmur, rubs, gallop, clicks GI/Abdominal exam: Present: soft, normal bowel sounds. Absent: distended, tenderness, guarding, rebound, rigid, bruit, pulsatile mass, hernia Rectal exam: Present: deferred Extremities exam: Present: normal inspection, full ROM, normal capillary refill. Absent: tenderness, pedal edema, joint swelling, calf tenderness Back exam: Present: normal inspection Neurological exam: Present: alert, oriented X3, CN II-XII intact Psychiatric exam: Present: normal affect, normal mood Skin exam: Present: warm, dry, intact, normal color. Absent: rash - Labs CBC & Chem 7: 12/25/17 08:13 12/25/17 08:13 Labs: Abnormal Lab Results - Last 24 Hours (Table) 12/24/17 12/24/17 12/24/17 Range/Units 05:29 05:29 20:26 WBC (3.8-10.6) k/uL RBC 3.89 L (4.30-5.90) m/uL Hgb 11.3 L (13.0-17.5) gm/dL Hct 37.3 L (39.0-53.0) % MCHC 30.4 L (31.0-37.0) g/dL Plt Count (150-450) k/uL Neutrophils # (1.3-7.7) k/uL Lymphocytes # 0.5 L (1.0-4.8) k/uL Sodium 133 L (137-145) mmol/L BUN (9-20) mg/dL Glucose (74-99) mg/dL POC Glucose (mg/dL) 218 H (75-99) mg/dL Calcium 8.2 L (8.4-10.2) mg/dL 12/25/17 12/25/17 12/25/17 Range/Units 07:21 08:13 08:13 WBC 11.9 H (3.8-10.6) k/uL RBC 3.58 L (4.30-5.90) m/uL Hgb 10.5 L (13.0-17.5) gm/dL Hct 33.3 L (39.0-53.0) % MCHC (31.0-37.0) g/dL Plt Count 472 H (150-450) k/uL Neutrophils # 10.8 H (1.3-7.7) k/uL Lymphocytes # 0.5 L (1.0-4.8) k/uL Sodium 132 L (137-145) mmol/L BUN 21 H (9-20) mg/dL Glucose 144 H (74-99) mg/dL POC Glucose (mg/dL) 138 H (75-99) mg/dL Calcium (8.4-10.2) mg/dL Microbiology - Last 24 Hours (Table) 12/23/17 03:09 Blood Culture - Preliminary Blood No Growth after 48 hours 12/24/17 14:51 Gram Stain - Preliminary Aspirate Body Fluid Culture - Preliminary 12/22/17 09:00 Blood Culture - Preliminary Blood No Growth after 48 hours Assessment and Plan Assessment: Acute on chronic hypoxic respirator failure on 4 L oxygen Left-sided severe postoperative pleuritic chest pain Left thoracic wall seroma/abscess Left-sided loculated pleural effusion appearing as a lung mass which is pleural based Low-grade [place] early sepsis cannot be excluded with the presentation with hypotension did respond with crystalloids Severe COPD Recent perforated left diaphragm with fracture of costochondral junction requiring repair Hypertension hypertensive cardiovascular disease Generalized anxiety disorder History of paroxysmal atrial fibrillation couldn't tolerate Lopressor cardiology has evaluated him in the past not considered to be a candidate for anticoagulation Plan: Continue bronchodilators, continue Solu-Medrol will start tapering it down Pain control Continue antibiotics with ID service has been following Fading further intervention as per thoracic surgery A computed tomography scan of the chest reviewed Continue home medications including breathing treatments maintain patient on DVT and peptic ulcer disease prophylaxis increase activity as tolerated further recommendations pending plan of care as per clinical response of the patient Follow-up on culture results and report Time with Patient: Greater than 30
[2017-12-25 11:37] LABS: Glucose,Whole Blood 150 mg/dL (75-99)
[2017-12-25] MEDS: HYDROcodone/APAP 10-325MG 1 EACH TAB PO PRN (16:12)
[2017-12-25] MEDS ORDERED: MORPHINE ORAL SOLN 10 MG/5 ML CUP PO PRN (16:15)
[2017-12-25 17:02] LABS: Glucose,Whole Blood 152 mg/dL (75-99)
--- NOTE | 2017-12-25 19:34 | PN ---
PROGRESS NOTE DATE OF SERVICE: 12/25/2017 This 72-year-old gentleman was admitted with shortness of breath, had seroma and left pleural effusion. The patient had a drain inserted by Cardiothoracic Surgery. The patient is feeling much better patient possibly also had a CHF acute exacerbation as well. Abdominal-pelvis CT scan was also done and fluid cytology from the previous fluid is pending at this time. The CT scan showed left basilar pigtail pleural catheter and the previous large loculated pleural effusion was resolved and post thoracotomy and diaphragmatic hernia repair changes are noted and some type of surgical patch material was noted in the anterolateral left and anterior intercostal space along with the inferior aspect of the patch material on the left 10th rib end was noted. There was a 5 x 5 x 1.8-cm fluid collection along the thoracic abdominal musculature that could represent postoperative seroma or an abscess and a fracture of the left posterior lateral 10th rib was also noted. PAST MEDICAL HISTORY: Reviewed. REVIEW OF SYSTEMS: CARDIOVASCULAR: No angina. RESPIRATORY: As mentioned earlier. GI: No nausea or vomiting. : No dysuria. CURRENT MEDICATIONS: Reviewed, include: 1. Tylenol 650 every 6 hours p.r.n. 2. [place] 10 mg q.i.d. p.r.n. 3. DuoNeb q.i.d. and p.r.n. 4. Xanax 0.5 t.i.d. 5. Aspirin 81 mg daily. 6. Lipitor 10 mg q.h.s. 7. Tessalon 200 mg t.i.d. 8. Pulmicort 1.5 mg b.i.d. 9. Proscar 5 mg p.o. every 6 hours. 10.Lasix 40 mg IV b.i.d. 11.Heparin. 12.Zestril 5 mg p.o. daily. 13.Antivert. 14.Melatonin. 15.Meropenem 1 g IV q.8h. 16.Lopressor. 17.Singulair. 18.Multivitamins. 19.Narcan. 20.Protonix. 21.Flomax. 22.Vancomycin. PHYSICAL EXAM: Patient is alert, oriented x3. Pulse is 95, blood pressure 102/14, respirations 18, temperature 96.7, pulse ox 92% on 4L. HEENT: Conjunctivae normal. Oral mucosa moist. NECK: No jugular venous distention. No carotid bruits. No lymph node enlargement. CARDIOVASCULAR: S1, S2 muffled. RESPIRATORY: Breath sounds diminished in the bases. A few scattered rhonchi and crackles. Breath sounds diminished on the left side. Left-sided left pleural pigtail catheter present. ABDOMEN: Soft, nontender. No mass palpable. LEGS: No edema. No swelling. NERVOUS SYSTEM: Higher functions as mentioned earlier. Moves all 4 limbs. No focal deficits. LYMPHATIC: No lymphadenopathy in neck or axillae. SKIN: No ulcer, rash or bleeding. LABS: WBC 11.2, hemoglobin is 10.5. Sodium 132. ASSESSMENT: 1. Shortness of breath, possibly multifactorial, with chronic obstructive pulmonary disease acute exacerbation as well as congestive heart failure acute exacerbation with acute on chronic diastolic dysfunction, ejection fraction 50%-55%. 2. Moderate mitral regurgitation. 3. Mild to moderate tricuspid regurgitation on 2D echocardiogram. 4. Left-sided pleural effusion as well as loculated pleural effusion, status post pigtail catheter. 5. Possible seroma. 6. 5.9 x 5.9 x 1.8-cm fluid collection along the thoracoabdominal wall musculature. 7. Hiatal hernia. 8. Degenerative joint disease of the spine. 9. Chronic obstructive pulmonary disease. 10.Hypertension. 11.Hyperlipidemia. 12.History of hernia repair. 13.Adenoidectomy, tonsillectomy. 14.History of left thoracotomy and closure of a diaphragmatic hernia with a patch and repair of costochondral dislocation and subsequent lung herniation. 15.Remote history of nicotine dependence. RECOMMENDATIONS AND DISCUSSION: Recommend to continue current medical management and symptomatic treatment, continue the antibiotics. Closely follow with Cardiothoracic Surgery. The pleural effusion seems to be improving. At this time, I recommend repeat chest x-ray in the morning. Otherwise, we will discuss with cardiac physician regarding the CT scan findings. Further recommendations to follow. Prognosis guarded. MMODL / IJN: [id number] /
[2017-12-25 20:56] LABS: Glucose,Whole Blood 131 mg/dL (75-99)
[2017-12-25] MEDS: FINASTERIDE 5 MG TAB PO SCH (20:56)
[2017-12-25] MEDS: MELATONIN 5 MG TABLET PO SCH (20:56)
[2017-12-25] MEDS: MONTELUKAST 10 MG TAB PO SCH (20:56)
[2017-12-25] MEDS: TAMSULOSIN 0.4 MG CAP.ER.24H PO SCH (20:56)
[2017-12-25] MEDS: ATORVASTATIN 20 MG TAB PO SCH (20:56)
[2017-12-25] MEDS: methylPREDNISolone SOD SUCCI 40 MG/ML 1 ML VIAL IV SCH (20:57)
[2017-12-25 22:53] LABS: Appearance,Urine Clear (Clear); Bilirubin,Urine Negative (Negative); Blood,Urine Negative (Negative); Color,Urine Yellow; Glucose,Urine (UA) Negative (Negative); Ketones,Urine Negative (Negative); Leukocyte Esterase,Urine Negative (Negative); PH, Urine 5.5 (5.0-8.0); Protein,Urine Negative (Negative); Specific Gravity,Urine 1.019 (1.001-1.035); Urobilinogen,Urine <2.0 mg/dL (<2.0)
--- NOTE | 2017-12-25 23:23 | P.PN ---
Subjective Progress Note Date: 12/25/17 Principal diagnosis: Shortness of breath Pleasant 72-year-old male presents to Hospital for significant and ongoing pain. This pleasant gentleman relates that in early October he was having significant difficulty with severe cough related to COPD and underlying infection. His related that he coughed so hard he caused a costochondral dislocation as well as a left diaphragmatic rupture with herniation. He was evaluated by Dr. Avila to cardiothoracic surgery was taken to the operating room where a thoracotomy was performed for appear of the diaphragm with mesh as well as repair of the costochondral dislocation. Postoperatively the patient was doing relatively well and was sent home on 11/26/2017. In home setting was doing relatively well. Over significant difficulties was more cough his pain became uncontrolled presented back to the emergency center and was admitted earlier in November. The patient again improved and has been home recovering further but then again developed severe pain to the left chest. Follow-up computed tomography scan has been performed in the emergency center and there is a significant increase in the amount of fluid that is outside of the pleural space into the tissue of the chest. This appears to be causing him severe pain he subsequently is admitted. Infectious disease consult for antibiotic therapy. 12/23/2017 the patient continues to feel poorly. He is quite short of breath and continues to have pain into his chest. I discussed the case with the nurse practitioner of the thoracic surgeon, the patient also may recurrence of some atrial fibrillation and is having some regularity at this time is having some increasing shortness of breath. Cardiology was requested to see him again. Patient's family is distinctly unhappy that the patient is having difficulties with multiple hospitalizations, they were unpleasant to this provider and although I was trying to provide some information admitted very clear that I am not the cardiac thoracic surgeon and I'm only a operational risk consultant trying to work to help him feel better. 12/24/2017 reveals the patient feeling considerably better today. The percutaneous drainage has occurred which has allowed an immediate reduction in his pain and discomfort and shortness of breath is much improved. He is considerably happier today than yesterday. His is also much more content seen at the patient is feeling better. 12/25/2017 patient continues to feel better. He is actually without pain for the first time in many days. His shortness of breath is improved but still has poor exercise tolerance with activity. He however is very pleased with his improvement. Objective - Vital Signs Vital signs: Vital Signs Temp 96.4 F L 12/25/17 22:57 Pulse 97 12/25/17 22:57 Resp 24 12/25/17 22:57 BP 107/54 12/25/17 22:57 Pulse Ox 93 L 12/25/17 22:57 Intake & Output 12/25/17 12/25/17 12/26/17 06:59 18:59 06:59 Intake Total 1290 Output Total 1140 838 Balance -1140 452 Weight 87.9 kg Intake: Oral 1290 Output: Drainage 90 10 Left Lateral Chest 90 10 Urine 1050 828 Other: # Voids 700 - Exam Pleasant 72-year-old gentleman who relates he is much more comfortable now than 24 hours ago. HEENT: Anicteric conjunctiva are pink and moist nasal mucosa grossly intact without significant lesions, there is no thrush. Neck: The neck is supple without significant lymphadenopathy or thyromegaly. Lungs: They're symmetrical air entry there are crackles at the left base but no britney bronchial sounds no dullness or egophony. Is able to take good deep breaths with only minimal discomfort and does not have significant coughing with a deep breath. The percutaneous drain is in place and only a scant amount of a thin serosanguineous material is noted. Heart: Irregular with an audible S1 and S2 without S4. There is no significant murmur click or rub, PMI was nondisplaced. Abdomen: Positive bowel sounds soft and nontender without palpable masses or organomegaly. There was no guarding or rebound. Extremities: The upper extremities have excellent pulses they are symmetric, no significant petechiae or telangiectasia. No splinter hemorrhages were noted. The lower extremities are free from significant edema. The peripheral pulses were 2+ and symmetric. Neuro: Awake alert oriented to person place and time. There are no acute new gross focal sensory motor deficits. Surgical wound to the left chest in the thoracotomy position is well-healed however erythema persists dressing is in place for the percutaneous drainage - Labs CBC & Chem 7: 12/25/17 08:13 12/25/17 08:13 Labs: Abnormal Lab Results - Last 24 Hours (Table) 12/25/17 12/25/17 12/25/17 Range/Units 07:21 08:13 08:13 WBC 11.9 H (3.8-10.6) k/uL RBC 3.58 L (4.30-5.90) m/uL Hgb 10.5 L (13.0-17.5) gm/dL Hct 33.3 L (39.0-53.0) % Plt Count 472 H (150-450) k/uL Neutrophils # 10.8 H (1.3-7.7) k/uL Lymphocytes # 0.5 L (1.0-4.8) k/uL Sodium 132 L (137-145) mmol/L BUN 21 H (9-20) mg/dL Glucose 144 H (74-99) mg/dL POC Glucose (mg/dL) 138 H (75-99) mg/dL 12/25/17 12/25/17 12/25/17 Range/Units 11:26 16:57 20:55 WBC (3.8-10.6) k/uL RBC (4.30-5.90) m/uL Hgb (13.0-17.5) gm/dL Hct (39.0-53.0) % Plt Count (150-450) k/uL Neutrophils # (1.3-7.7) k/uL Lymphocytes # (1.0-4.8) k/uL Sodium (137-145) mmol/L BUN (9-20) mg/dL Glucose (74-99) mg/dL POC Glucose (mg/dL) 150 H 152 H 131 H (75-99) mg/dL Microbiology - Last 24 Hours (Table) 12/22/17 09:00 Blood Culture - Preliminary Blood No Growth after 72 hours 12/24/17 14:51 Gram Stain - Preliminary Aspirate Body Fluid Culture - Preliminary 12/23/17 03:09 Blood Culture - Preliminary Blood No Growth after 48 hours Laboratory Results WBC 11.9 k/uL (3.8-10.6) H 12/25/17 08:13 RBC 3.58 m/uL (4.30-5.90) L 12/25/17 08:13 Hgb 10.5 gm/dL (13.0-17.5) L 12/25/17 08:13 Hct 33.3 % (39.0-53.0) L 12/25/17 08:13 MCV 92.9 fL (80.0-100.0) 12/25/17 08:13 MCH 29.4 pg (25.0-35.0) 12/25/17 08:13 MCHC 31.6 g/dL (31.0-37.0) 12/25/17 08:13 RDW 13.1 % (11.5-15.5) 12/25/17 08:13 Plt Count 472 k/uL (150-450) H 12/25/17 08:13 Neutrophils % 91 % 12/25/17 08:13 Lymphocytes % 4 % 12/25/17 08:13 Monocytes % 4 % 12/25/17 08:13 Eosinophils % 0 % 12/25/17 08:13 Basophils % 0 % 12/25/17 08:13 Neutrophils # 10.8 k/uL (1.3-7.7) H 12/25/17 08:13 Lymphocytes # 0.5 k/uL (1.0-4.8) L 12/25/17 08:13 Monocytes # 0.5 k/uL (0-1.0) 12/25/17 08:13 Eosinophils # 0.0 k/uL (0-0.7) 12/25/17 08:13 Basophils # 0.0 k/uL (0-0.2) 12/25/17 08:13 Hypochromasia Slight 12/24/17 05:29 PT 10.2 sec (9.0-12.0) 12/22/17 09:00 INR 1.0 (<1.2) 12/22/17 09:00 APTT 23.3 sec (22.0-30.0) 12/22/17 09:00 Sodium 132 mmol/L (137-145) L 12/25/17 08:13 Potassium 4.2 mmol/L (3.5-5.1) 12/25/17 08:13 Chloride 99 mmol/L (98-107) 12/25/17 08:13 Carbon Dioxide 24 mmol/L (22-30) 12/25/17 08:13 Anion Gap 9 mmol/L 12/25/17 08:13 BUN 21 mg/dL (9-20) H 12/25/17 08:13 Creatinine 0.80 mg/dL (0.66-1.25) 12/25/17 08:13 Est GFR (MDRD) Af Amer >60 (>60 ml/min/1.73 sqM) 12/25/17 08:13 Est GFR (MDRD) Non-Af >60 (>60 ml/min/1.73 sqM) 12/25/17 08:13 Glucose 144 mg/dL (74-99) H 12/25/17 08:13 POC Glucose (mg/dL) 131 mg/dL (75-99) H 12/25/17 20:55 POC Glu Geospatial Applications Developer ID Lanette Sanchez 12/25/17 20:[address] Glu mg/dL 123 12/24/17 05:29 Hemoglobin A1c 5.9 % (4.0-6.0) 12/24/17 05:29 Plasma Lactic Acid Geo 0.9 mmol/L (0.7-2.0) 12/23/17 03:09 Calcium 8.4 mg/dL (8.4-10.2) 12/25/17 08:13 Magnesium 2.0 mg/dL (1.6-2.3) 12/22/17 09:00 Total Bilirubin 1.2 mg/dL (0.2-1.3) 12/22/17 09:00 AST 31 U/L (17-59) 12/22/17 09:00 ALT 30 U/L (21-72) 12/22/17 09:00 Alkaline Phosphatase 99 U/L (38-126) 12/22/17 09:00 Total Creatine Kinase 39 U/L (55-170) L 12/22/17 09:00 CK-MB (CK-2) 1.4 ng/mL (0.0-2.4) 12/22/17 09:00 CK-MB (CK-2) Rel Index 3.6 12/22/17 09:00 Troponin I 0.197 ng/mL (0.000-0.034) H* 12/24/17 05:29 NT-Pro-B Natriuret Pep 2350 pg/mL 12/23/17 18:05 Total Protein 6.0 g/dL (6.3-8.2) L 12/22/17 09:00 Albumin 3.0 g/dL (3.5-5.0) L 12/22/17 09:00 Urine Color Yellow 12/25/17 22:30 Urine Appearance Clear (Clear) 12/25/17 22:30 Urine pH 5.5 (5.0-8.0) 12/25/17 22:30 Ur Specific [place] 1.019 (1.001-1.035) 12/25/17 22:30 Urine Protein Negative (Negative) 12/25/17 22:30 Urine Glucose (UA) Negative (Negative) 12/25/17 22: Urine Ketones Negative (Negative) 12/25/17 22: Urine Blood Negative (Negative) 12/25/17 22: Urine Nitrite Negative (Negative) 12/25/17 22: Urine Bilirubin Negative (Negative) 12/25/17 22: Urine Urobilinogen <2.0 mg/dL (<2.0) 12/25/17 22: Ur Leukocyte Esterase Negative (Negative) 12/25/17 22: Vancomycin Trough 13.9 ug/mL 12/25/17 08:13 Influenza Type A RNA Not Detected (Not Detectd) 12/22/17 09:00 Influenza Type B (PCR) Not Detected (Not Detectd) 12/22/17 09:00 Microbiology 12/22/17 09:00 Blood Blood Culture - Preliminary No Growth after 72 hours 12/24/17 14:51 Aspirate Gram Stain - Preliminary 12/24/17 14:51 Aspirate Body Fluid Culture - Preliminary 12/23/17 03:09 Blood Blood Culture - Preliminary No Growth after 48 hours Assessment and Plan (1) Diaphragmatic hernia Current Visit: No Status: Acute Code(s): K44.9 - DIAPHRAGMATIC HERNIA WITHOUT OBSTRUCTION OR GANGRENE SNOMED Code(s): 89426559 (2) Pleural effusion Current Visit: No Status: Acute Code(s): J90 - PLEURAL EFFUSION, NOT ELSEWHERE CLASSIFIED SNOMED Code(s): 90523104 (3) COPD (chronic obstructive pulmonary disease) Current Visit: Yes Status: Chronic Code(s): J44.9 - CHRONIC OBSTRUCTIVE PULMONARY DISEASE, UNSPECIFIED SNOMED Code(s): 66263322 (4) Chest wall abscess Narrative/Plan: 72-year-old male presents to Hospital with a marked increase of pain to his left chest. This is quite similar to what he's been suffering from in the recent past. It is noted he started with a diaphragmatic rupture requiring thoracic surgical repair. Since then he's been having some difficulties with the current infection at that site. He was actually doing relatively well over the last many days until he had the sudden onset of severe pain and left chest making it hard to breathe every breath was extremely painful because he presented to the emergency center. Fortunately with narcotic therapies he is feeling better at this time. We will initiate antibiotic therapy at this time vancomycin and meropenem will be utilized because he's having some fever. The cardiac thoracic surgical team has been consulted and we await their input as far as her plan. The patient is significant increase the amount of fluid into the soft tissue of the chest wall. An very concerned that this is abscess given the erythema tenderness pain and fever that he is suffering from. Cultures are pending. If the site is incised and drained certainly deep cultures will be helpful to further direct ongoing antibiotic therapy. Pain control currently is adequate. Continue his respiratory treatments and oxygen therapy. She has importance of adequate protein intake for his healing. Multivitamin is ensured. 12/23/2017 cultures are in process at this point in time. Continue intravenous antibiotic therapy. Have asked for cardiology consultation with concerns to recurrent her intermittent atrial fibrillation. Have discussed the case with current thoracic surgery and hopefully will proceed to surgical intervention in the near future. 12/24/2017 reveals the patient to be considerably improved now that he has had the percutaneous drainage of the fluid collection to the left anterior chest wall catheter appears site of his ruptured diaphragmatic hernia. The patient is definitely improved today and is much more content. Cardiology has seen him in the area utilizing aspirin therapy at this time they have not been able to replicate any further atrial fibrillation. He was monitored closely by cardiology in the outpatient setting. Cardiothoracic surgery was also monitored to ensure that he has a good result with percutaneous drainage. They will follow with recurrent scans to ensure that it is improving. As to antibiotic therapy cultures from the percutaneous drainage for further help direct but likely will utilize outpatient intravenous antibiotic therapy with vancomycin. 12/25/2017 reveals the patient to have even further improvement in that he's having no pain after his percutaneous drainage. The best that he has felt since October. We'll continue to work toward outpatient intravenous antibiotic therapy with vancomycin at his discharge. No evidence of any further cardiac dysrhythmia. Current Visit: Yes Status: Acute Code(s): L02.213 - CUTANEOUS ABSCESS OF CHEST WALL SNOMED Code(s): 07288245
[2017-12-26] MEDS: FUROSEMIDE 10 MG/ML 4 ML VIAL IV SCH ×2 (06:35→16:08)
[2017-12-26] MEDS: HYDROcodone/APAP 10-325MG 1 EACH TAB PO PRN (06:37)
[2017-12-26] MEDS: INSULIN ASPART 100 UNIT/ML 1 ML 10 ML VIAL SQ SCH ×4 (07:26→21:44)
[2017-12-26 07:27] LABS: Glucose,Whole Blood 116 mg/dL (75-99)
[2017-12-26] MEDS: SENNOSIDES-DOCUSATE SODIUM 1 EACH TAB PO SCH ×2 (07:28→21:43)
[2017-12-26] MEDS: IPRATROPIUM-ALBUTEROL 3 ML NEB INHALATION SCH ×4 (07:41→19:01)
[2017-12-26] MEDS: BUDESONIDE 0.5 MG/2 ML NEBU INHALATION SCH ×2 (07:41→19:01)
[2017-12-26] MEDS: MEROPENEM 1 GM in SODIUM CHLORIDE 0.9% 100 ML IVPB SCH ×2 (08:00→16:08)
[2017-12-26 08:22] LABS: Basophils % (A) 0 %; Eosinophils % (A) 0 %; HCT 33.7 % (39.0-53.0); HGB 10.9 gm/dL (13.0-17.5); Lymphocytes # (A) 0.8 k/uL (1.0-4.8); Lymphocytes % (A) 4 %; MCH 29.2 pg (25.0-35.0); MCHC 32.2 g/dL (31.0-37.0); MCV 90.6 fL (80.0-100.0); Mean Platelet Volume 6.9; Monocytes # (A) 0.8 k/uL (0-1.0); Monocytes % (A) 5 %; Neutrophils % (A) 90 %; Platelet Count 526 k/uL (150-450); RBC 3.72 m/uL (4.30-5.90); RDW 13.5 % (11.5-15.5); WBC 17.8 k/uL (3.8-10.6)
--- NOTE | 2017-12-26 08:36 | XR ---
EXAMINATION TYPE: XR chest 2V DATE OF EXAM: 12/26/2017 COMPARISON: Prior chest x-ray 12/25/2017 HISTORY: Chest tube pleural effusion TECHNIQUE: Frontal and lateral views of the chest are obtained. FINDINGS: Left-sided chest tube, postprocedural changes are again noted and are not significantly ch anged. No evident pneumothorax. Cardiomediastinal silhouette, pulmonary vascularity and denise show a s imilar appearance. Interstitium is increased. IMPRESSION: Similar findings to prior exam. Minimal residual pleural fluid. Interstitial lung diseas e.
[2017-12-26 08:51] LABS: Anion Gap 11 mmol/L; Blood Urea Nitrogen 26 mg/dL (9-20); Calcium 8.9 mg/dL (8.4-10.2); Carbon Dioxide 25 mmol/L (22-30); Chloride 100 mmol/L (98-107); Glucose 105 mg/dL (74-99); Potassium 4.2 mmol/L (3.5-5.1); Sodium 136 mmol/L (137-145)
[2017-12-26] MEDS: VANCOMYCIN 1,500 MG in SODIUM CHLORIDE 0.9% 250 ML IVPB SCH ×2 (09:10→21:42)
[2017-12-26] MEDS: MULTIVITAMINS, THERA 1 EACH TAB PO SCH (09:10)
[2017-12-26] MEDS: BENZONATATE 100 MG CAP PO SCH ×3 (09:10→21:42)
[2017-12-26] MEDS: METOPROLOL TARTRATE 25 MG TAB PO SCH ×2 (09:10→21:42)
[2017-12-26] MEDS: ASPIRIN 81 MG PO SCH (09:10)
[2017-12-26] MEDS: MECLIZINE 25 MG TAB PO SCH (09:10)
[2017-12-26] MEDS: LISINOPRIL 5 MG TAB PO SCH (09:10)
[2017-12-26] MEDS: HEPARIN SODIUM,PORCINE 5,000 UNIT/ML 1 ML VIAL SQ SCH ×2 (09:10→16:08)
[2017-12-26] MEDS: methylPREDNISolone SOD SUCCI 40 MG/ML 1 ML VIAL IV SCH (09:10)
[2017-12-26] MEDS: PANTOPRAZOLE 40 MG TABLET PO SCH (09:10)
--- NOTE | 2017-12-26 10:25 | P.PN ---
Subjective Progress Note Date: 12/26/17 Principal diagnosis: Left chest surgical site subcutaneous fluid collection, postoperative left- sided chest pain. Previous medical history of COPD, previous tobacco dependence , hypertension, hyperlipidemia, prostate disorder, Mnire's disease, hearing disorder. Status post left thoracotomy closure of diaphragmatic hernia with patch, repair of costochondral dislocation and subsequent lung herniation completed 11/22/2017. Recent diagnosis of paroxysmal atrial fibrillation last admission, placed on Lopressor which the patient stopped at home, not a candidate for anticoagulation per cardiology. POD #2 ultrasound-guided seroma drainage by interventional radiology Patient's currently sitting up in bed in no acute distress. States his pain is much better, still short of breath with activity, quite frustrated that he still short of breath. is at bedside. Teaching regarding patient's disease process again reinforced with the patient and his . Objective - Vital Signs Vital signs: Vital Signs Temp 96.7 F L 12/26/17 06:42 Pulse 72 12/26/17 07:59 Resp 20 12/26/17 06:42 BP 131/81 12/26/17 06:42 Pulse Ox 94 L 12/26/17 06:42 Intake & Output 12/25/17 12/26/17 12/26/17 18:59 06:59 18:59 Intake Total 1290 100 Output Total 838 400 Balance 452 -300 Weight 88 kg Intake: Oral 1290 100 Output: Drainage 10 Left Lateral Chest 10 Urine 828 400 Other: # Voids 700 2 - Constitutional General appearance: Present: cooperative, no acute distress - Respiratory Details: Assessments bilaterally, faint expiratory wheezes present. Respirations even, nonlabored. Currently on 4 L nasal cannula oxygen saturation 94%. Able to achieve 1500 mL on his incentive spirometry. Dry cough present. Left-sided pigtail catheter present, minimal serous drainage. - Cardiovascular Details: S1, S2 present. Regular rate and rhythm, sinus rhythm on telemetry with occasional PVCs. Palpable peripheral pulses bilaterally. Trace bilateral lower extremity edema present. No calf pain or tenderness noted. - Gastrointestinal Gastrointestinal Comment(s): Abdomen soft, nontender, nondistended. Active bowel sounds 4 quadrants. Tolerating diet. - Genitourinary Genitourinary Comment(s): Continues to void clear, yellow urine per urinal. - Integumentary Integumentary Comment(s): Skin is warm and dry with evidence of good perfusion. Left lateral thoracotomy site well approximated, trace amount of redness left. - Neurologic Neurologic: Present: CNII-XII intact - Musculoskeletal Musculoskeletal: Present: gait normal, strength equal bilaterally - Psychiatric Psychiatric: Present: A&O x's 3, appropriate affect, intact judgment & insight - Allied health notes Allied health notes reviewed: nursing - Labs CBC & Chem 7: 12/26/17 07:51 12/26/17 07:51 Labs: Abnormal Lab Results - Last 24 Hours (Table) 12/25/17 12/25/17 12/25/17 Range/Units 11:26 16:57 20:55 WBC (3.8-10.6) k/uL RBC (4.30-5.90) m/uL Hgb (13.0-17.5) gm/dL Hct (39.0-53.0) % Plt Count (150-450) k/uL Neutrophils # (1.3-7.7) k/uL Lymphocytes # (1.0-4.8) k/uL Sodium (137-145) mmol/L BUN (9-20) mg/dL Glucose (74-99) mg/dL POC Glucose (mg/dL) 150 H 152 H 131 H (75-99) mg/dL 12/26/17 12/26/17 12/26/17 Range/Units 07:22 07:51 07:51 WBC 17.8 H (3.8-10.6) k/uL RBC 3.72 L (4.30-5.90) m/uL Hgb 10.9 L (13.0-17.5) gm/dL Hct 33.7 L (39.0-53.0) % Plt Count 526 H (150-450) k/uL Neutrophils # 16.0 H (1.3-7.7) k/uL Lymphocytes # 0.8 L (1.0-4.8) k/uL Sodium 136 L (137-145) mmol/L BUN 26 H (9-20) mg/dL Glucose 105 H (74-99) mg/dL POC Glucose (mg/dL) 116 H (75-99) mg/dL Microbiology - Last 24 Hours (Table) 12/23/17 03:09 Blood Culture - Preliminary Blood No Growth after 72 hours 12/22/17 09:00 Blood Culture - Preliminary Blood No Growth after 72 hours 12/24/17 14:51 Gram Stain - Preliminary Aspirate Body Fluid Culture - Preliminary - Imaging and Cardiology Chest x-ray: report reviewed, image reviewed Assessment and Plan (1) Pleural mass Current Visit: Yes Status: Chronic Code(s): J94.9 - PLEURAL CONDITION, UNSPECIFIED SNOMED Code(s): 209675209 (2) Postoperative pain Current Visit: Yes Status: Chronic Code(s): G89.18 - OTHER ACUTE POSTPROCEDURAL PAIN SNOMED Code(s): 441266771 (3) Mnire's disease Current Visit: No Status: Chronic Code(s): H81.09 - MENIERE'S DISEASE, UNSPECIFIED EAR SNOMED Code(s): 43575422 (4) Paroxysmal atrial fibrillation Current Visit: Yes Status: Acute Code(s): I48.0 - PAROXYSMAL ATRIAL FIBRILLATION SNOMED Code(s): 177183911 (5) COPD (chronic obstructive pulmonary disease) Current Visit: Yes Status: Chronic Code(s): J44.9 - CHRONIC OBSTRUCTIVE PULMONARY DISEASE, UNSPECIFIED SNOMED Code(s): 02066679 (6) Hard of hearing Current Visit: Yes Status: Chronic Code(s): H91.90 - UNSPECIFIED HEARING LOSS, UNSPECIFIED EAR SNOMED Code(s): 59573456 (7) Hyperlipidemia Current Visit: No Status: Chronic Code(s): E78.5 - HYPERLIPIDEMIA, UNSPECIFIED SNOMED Code(s): 34788025 (8) Hypertension Current Visit: No Status: Chronic Code(s): I10 - ESSENTIAL (PRIMARY) HYPERTENSION SNOMED Code(s): 29924787 (9) Prostate disorder Current Visit: No Status: Chronic Code(s): N42.9 - DISORDER OF PROSTATE, UNSPECIFIED SNOMED Code(s): 97987206 Plan: 1. Pain control with ordered medications. 2. Antibiotic management per infectious disease. 3. Continue pigtail drain. Will monitor output. To be discontinued when appropriate by interventional radiology. 4. Wean O2 as tolerated.Encourage incentive spirometry use 10 times every hour. 5. GI/DVT prophylaxis. 6. Will monitor x-rays. 7. Heart rhythm management per cardiology. 8. Bronchodilators, steroids per pulmonology. 9. Continue to reinforce disease management teaching with patient and . 10. More recommendations to follow. Time with Patient: Greater than 30
[2017-12-26 12:15] LABS: Glucose,Whole Blood 110 mg/dL (75-99)
--- NOTE | 2017-12-26 15:05 | CDI ---
Last Revision, September 2017 Documentation Clarification Form Date: 12/26/2017 2:03:00 PM From: Keira Gallardo RN, CCDS Admit Date: 12/22/2017 11:03:00 AM Patient Name: Sushant Amaral Visit Number: [id number] Discharge Date: ATTENTION: The Clinical Documentation Specialists (CDI) and [facility] Coding Staff appreciate your assistance in clarifying documentation. Please respond to the clarification below the line at the bottom and electronically sign. The CDI & [facility] Coding staff will review the response and follow-up if needed. Please note: Queries are made part of the Legal Health Record. If you have any questions, please contact the author of this message via ITS. Dr. Lu Avendano 12/22/17 H&P: Low-grade systemic inflammatory response syndrome, early sepsis based on hypotension criteria. History/Risk Factors: COPD, Hypertension with hypertensive cardiovascular disease, Paroxysmal atrial fibrillation, Clinical Indicators: Present with left sided chest pain with chest wall tenderness on the incision on the left side with history of left thoracotomy closure of diaphragmatic hernia on 11/22/17: Chest x-ray: left-sided loculated pleural effusion with a mass which is pleural based. On admission: WBC 14.3 Lactic acid: 1.5 Blood cultures: Pending (preliminary no growth) Vitals signs on admission: 108/67 100 18 97.8 95 % RA, 74/49 100 16 98 % 2/L 12/22/17 Dr. Moss: Low-grade SIRS early sepsis cannot be excluded with the presentation with hypotension did respond with crystalloids. Recent perforated left diaphragm with fracture of costochondral junction requiring repair Treatment: Vancomycin IV, Meropenem IV Morphine IV prn, Solu-Medrol IV (taper) Duoneb's IV Bolus: ID Consult: The patient significant increase the amount of fluid into the soft tissue of the chest wall, concerned that this is abscess given the erythema tenderness, pain and fever. In your professional opinion, please clarify if these findings signify one of the following conditions, whether the condition is POA, and cause, if known: Condition Sepsis ruled out Sepsis ruled in (clarify underlying infectious process SIRS, without underlying infectious process Septic Shock Other, please specify Unable to determine Present on Admission: Yes No Identify the (suspected) organism Link or clarify if there is associated (due to/with): Organ failure Shock Please continue to document in your progress notes and discharge summary in order to capture severity of illness and risk of mortality. Include clinical findings that support your diagnosis. Sepsis ruled out MTDD
[2017-12-26] MEDS: ALPRAZolam 0.25 MG TAB PO PRN (16:11)
[2017-12-26 17:34] LABS: Glucose,Whole Blood 124 mg/dL (75-99)
--- NOTE | 2017-12-26 19:21 | P.PN ---
Subjective Progress Note Date: 12/26/17 Principal diagnosis: Left-sided severe pleuritic chest pain, loculated left pleural effusion with the severe,/abscess formation into the soft tissues, service, intermittent hypertension, severe COPD, perforated left diaphragm with fracture of costochondral junction status post repair of diaphragmatic and dislocation, generalized anxiety disorder, paroxysmal atrial fibrillation 12/26/2017, patient seen eval examined during the rounds the he continued to have issues associated with shortness of breath however noted that patient was without oxygen I applied the oxygen back with that he feels better, he still have for left-sided thoracic wall pain continued to require 3-4 times morphine, care plan discussed with thoracic surgery plan is to monitor observe as no significant output has been noted bulging in the intercostal ribs however appears to be slightly diminished and less tender, right heme edema at the incision size is stable no significant worsening has been seen so far culture continued to be negative no new growth has been noted, labs reviewed medications reviewed white cell count is 17,000 with a rise in WBC count we'll continue to taper down the steroids 12/25/2017, patient seen eval reexamined during the rounds he is sitting upright on the bed breathing comfortably severity of pain is better he gets short of breath on activity and exertion currently is on 4 L oxygen, patient underwent CT-guided pleural drainage catheter placement by interventional radiology about 100 mL of serous sanguinous fluid has been removed final ID and cultures are pending preliminary Gram stain revealed absence of organism however many white cells are seen, blood cultures 2 so far has been negative, labs reviewed medications reviewed we'll continue breathing treatment however start tapering down the steroids care plan discussed with the patient and at length patient may very well require home IV antibiotics via PICC line 12/24/2017, patient seen eval examined care plan discussed with the cardiovascular service and primary service, respiratory status overall stable and improved but still have significant pain requiring morphine every 6 hour cardiothoracic surgery is following the recommended for CT-guided or ultrasound- guided drainage by interventional radiology 12/23/2017, patient seen eval reexamined noted patient has slight fluid overload required IV Lasix continued to be on breathing treatments continue require pain medication seems to be controlling the severity of pain patient has been eval by cardiothoracic surgery furthermore definitely would intervention are being discussed Mr. Cheatham is a 72-year-old male well-known to me patient has a history of end- stage lung disease second to severe COPD emphysema patient has been doing relatively well since discharged recently after bilateral pneumonia treatment however started having recurrence of pain about 2 days ago patient was seen in the office yesterday his pain was minimal at that time he couldn't tolerate the [place] due to his the confusion and apneic episode he had some crackles present at the bases otherwise hemodynamic status was stable patient had at that time noted to have on outpatient setting low blood pressure however they did resolve after discontinuation of Lopressor patient was stable throughout the day however and of the day in the evening started having chest pain predominantly on the left side and dental pain becomes 10 out of 10 in addition subsequently patient started developing shortness of breath he started coughing with very thick tenacious yellowish-green mucus sputum and developed shortness of breath he was brought into the emergency department he was found to be did require a small bolus of crystalloid with with normal saline with the stabilization of blood pressure patient has been admitted into the hospital I've discussed with the emergency department service to consult Dr. Avila as the chest x-ray performed today revealed density on the left side has progressed in size from 4 cm to 7 cm in addition to that I will ask them to obtain a computed tomography scan of the chest which can be done without contrast. Patient is well-known to id he has been hospitalized and later part of September for acute COPD exacerbation and early October he was found to have a perforated left diaphragm which was repaired by Dr. Avila patient subsequently was rehospitalized 2 times with pneumonia at bases was eventually discharged in stable condition after extensive IV antibiotics patient was evaluated by infectious disease services Dr. Ovalles at that time as well recommended patient to be treated with Augmentin on outpatient basis Objective - Vital Signs Vital signs: Vital Signs Temp 96.9 F L 12/26/17 15:00 Pulse 76 12/26/17 19:01 Resp 18 12/26/17 15:00 BP 126/83 12/26/17 15:00 Pulse Ox 93 L 12/26/17 15:00 Intake & Output 12/26/17 12/26/17 12/27/17 06:59 18:59 06:59 Intake Total 100 1518 Output Total 1350 1268 Balance -1250 250 Weight 88 kg Intake: IV 350 Meropenem 1 gm In Sodium 100 Chloride 0.9% 100 ml @ 100 mls/hr IVPB Q8HR [facility] Rx#:[id number] Vancomycin 1,500 mg In 250 Sodium Chloride 0.9% 250 ml @ 125 mls/hr IVPB Q12H [facility] Rx#:[id number] Oral 100 1168 Output: Drainage 43 Left Lateral Chest 43 Urine 1350 1225 Other: # Voids 2 2 - Exam This is a well-developed well-nourished awake alert oriented 3 male Limitations: no limitations General appearance: alert, in no apparent distress Head exam: Present: atraumatic, normocephalic, normal inspection Eye exam: Present: normal appearance, PERRL, EOMI. Absent: scleral icterus, conjunctival injection, periorbital swelling ENT exam: Present: mucous membranes dry Neck exam: Present: normal inspection. Absent: tenderness, meningismus, lymphadenopathy Respiratory exam: Present: Bilateral basal few rales noted with overall improved air entry, no wheezing are present, chest wall tenderness, noted mild chest wall tenderness on the left the incision site appears to be intact no definite wound dehiscence mild some localized erythema noted without any significant discharge, respiratory distress, wheezes, rhonchi, stridor noted, overall exam not much change compared to yesterday, pleural drainage catheter is present connected with PITA drain Cardiovascular Exam: Present: regular rate, normal rhythm, normal heart sounds. Absent: systolic murmur, diastolic murmur, rubs, gallop, clicks GI/Abdominal exam: Present: soft, normal bowel sounds. Absent: distended, tenderness, guarding, rebound, rigid, bruit, pulsatile mass, hernia Rectal exam: Present: deferred Extremities exam: Present: normal inspection, full ROM, normal capillary refill. Absent: tenderness, pedal edema, joint swelling, calf tenderness Back exam: Present: normal inspection Neurological exam: Present: alert, oriented X3, CN II-XII intact Psychiatric exam: Present: normal affect, normal mood Skin exam: Present: warm, dry, intact, normal color. Absent: rash - Labs CBC & Chem 7: 12/26/17 07:51 12/26/17 07:51 Labs: Abnormal Lab Results - Last 24 Hours (Table) 12/25/17 12/26/17 12/26/17 Range/Units 20:55 07:22 07:51 WBC 17.8 H (3.8-10.6) k/uL RBC 3.72 L (4.30-5.90) m/uL Hgb 10.9 L (13.0-17.5) gm/dL Hct 33.7 L (39.0-53.0) % Plt Count 526 H (150-450) k/uL Neutrophils # 16.0 H (1.3-7.7) k/uL Lymphocytes # 0.8 L (1.0-4.8) k/uL Sodium (137-145) mmol/L BUN (9-20) mg/dL Glucose (74-99) mg/dL POC Glucose (mg/dL) 131 H 116 H (75-99) mg/dL 12/26/17 12/26/17 12/26/17 Range/Units 07:51 12:10 17:27 WBC (3.8-10.6) k/uL RBC (4.30-5.90) m/uL Hgb (13.0-17.5) gm/dL Hct (39.0-53.0) % Plt Count (150-450) k/uL Neutrophils # (1.3-7.7) k/uL Lymphocytes # (1.0-4.8) k/uL Sodium 136 L (137-145) mmol/L BUN 26 H (9-20) mg/dL Glucose 105 H (74-99) mg/dL POC Glucose (mg/dL) 110 H 124 H (75-99) mg/dL Microbiology - Last 24 Hours (Table) 12/22/17 09:00 Blood Culture - Preliminary Blood No Growth after 96 hours 12/25/17 22:30 Urine Culture - Preliminary Urine,Clean Catch 12/24/17 14:51 Gram Stain - Preliminary Aspirate Body Fluid Culture - Preliminary 12/23/17 03:09 Blood Culture - Preliminary Blood No Growth after 72 hours Assessment and Plan Assessment: Leukocytosis likely related chronic inflammatory processes as well as steroids, will start tapering it down Acute on chronic hypoxic respirator failure on 4 L oxygen Left-sided severe postoperative pleuritic chest pain Left thoracic wall seroma/abscess Left-sided loculated pleural effusion appearing as a lung mass which is pleural based Low-grade [place] early sepsis cannot be excluded with the presentation with hypotension did respond with crystalloids Severe COPD Recent perforated left diaphragm with fracture of costochondral junction requiring repair Hypertension hypertensive cardiovascular disease Generalized anxiety disorder History of paroxysmal atrial fibrillation couldn't tolerate Lopressor cardiology has evaluated him in the past not considered to be a candidate for anticoagulation Plan: Continue bronchodilators, continue Solu-Medrol will start tapering it down Pain control Continue antibiotics with ID service has been following Fading further intervention as per thoracic surgery A computed tomography scan of the chest reviewed Continue home medications including breathing treatments maintain patient on DVT and peptic ulcer disease prophylaxis increase activity as tolerated further recommendations pending plan of care as per clinical response of the patient Follow-up on culture results and report Time with Patient: Greater than 30
[2017-12-26 21:00] LABS: Glucose,Whole Blood 174 mg/dL (75-99)
[2017-12-26] MEDS: MONTELUKAST 10 MG TAB PO SCH (21:42)
[2017-12-26] MEDS: MELATONIN 5 MG TABLET PO SCH (21:42)
[2017-12-26] MEDS: ATORVASTATIN 20 MG TAB PO SCH (21:42)
[2017-12-26] MEDS: TAMSULOSIN 0.4 MG CAP.ER.24H PO SCH (21:42)
[2017-12-26] MEDS: FINASTERIDE 5 MG TAB PO SCH (21:44)
[2017-12-27] MEDS: MEROPENEM 1 GM in SODIUM CHLORIDE 0.9% 100 ML IVPB SCH ×3 (00:39→15:01)
[2017-12-27] MEDS: HYDROcodone/APAP 10-325MG 1 EACH TAB PO PRN (00:40)
[2017-12-27] MEDS: HEPARIN SODIUM,PORCINE 5,000 UNIT/ML 1 ML VIAL SQ SCH ×3 (00:40→15:01)
[2017-12-27] MEDS: ALPRAZolam 0.25 MG TAB PO PRN ×3 (01:27→19:40)
[2017-12-27] MEDS: FUROSEMIDE 10 MG/ML 4 ML VIAL IV SCH ×2 (06:18→17:36)
[2017-12-27] MEDS: BUDESONIDE 0.5 MG/2 ML NEBU INHALATION SCH ×2 (07:38→20:32)
[2017-12-27] MEDS: IPRATROPIUM-ALBUTEROL 3 ML NEB INHALATION SCH ×4 (07:38→20:32)
[2017-12-27] MEDS: INSULIN ASPART 100 UNIT/ML 1 ML 10 ML VIAL SQ SCH ×4 (07:40→21:13)
[2017-12-27 07:42] LABS: Glucose,Whole Blood 79 mg/dL (75-99)
[2017-12-27 08:05] LABS: Basophils % (A) 0 %; Eosinophils # (A) 0.1 k/uL (0-0.7); Eosinophils % (A) 1 %; HCT 37.2 % (39.0-53.0); HGB 11.8 gm/dL (13.0-17.5); Lymphocytes # (A) 1.5 k/uL (1.0-4.8); Lymphocytes % (A) 8 %; MCH 28.8 pg (25.0-35.0); MCHC 31.8 g/dL (31.0-37.0); MCV 90.6 fL (80.0-100.0); Monocytes # (A) 0.9 k/uL (0-1.0); Monocytes % (A) 5 %; Neutrophils # (A) 14.5 k/uL (1.3-7.7); Neutrophils % (A) 84 %; Platelet Count 565 k/uL (150-450); RDW 13.5 % (11.5-15.5); WBC 17.3 k/uL (3.8-10.6)
[2017-12-27] MEDS: SENNOSIDES-DOCUSATE SODIUM 1 EACH TAB PO SCH ×2 (08:18→19:41)
[2017-12-27] MEDS: methylPREDNISolone SOD SUCCI 40 MG/ML 1 ML VIAL IV SCH (08:18)
[2017-12-27] MEDS: ASPIRIN 81 MG PO SCH (08:18)
[2017-12-27] MEDS: LISINOPRIL 5 MG TAB PO SCH (08:18)
[2017-12-27] MEDS: BENZONATATE 100 MG CAP PO SCH ×3 (08:18→21:23)
[2017-12-27] MEDS: MECLIZINE 25 MG TAB PO SCH (08:18)
[2017-12-27] MEDS: PANTOPRAZOLE 40 MG TABLET PO SCH (08:19)
[2017-12-27] MEDS: METOPROLOL TARTRATE 25 MG TAB PO SCH ×2 (08:19→21:49)
[2017-12-27 08:36] LABS: Anion Gap 10 mmol/L; Blood Urea Nitrogen 27 mg/dL (9-20); Calcium 9.2 mg/dL (8.4-10.2); Carbon Dioxide 28 mmol/L (22-30); Chloride 100 mmol/L (98-107); Glucose 79 mg/dL (74-99); Potassium 4.1 mmol/L (3.5-5.1); Sodium 138 mmol/L (137-145)
[2017-12-27] MEDS: VANCOMYCIN 1,500 MG in SODIUM CHLORIDE 0.9% 250 ML IVPB SCH ×2 (10:04→21:24)
--- NOTE | 2017-12-27 10:23 | XR ---
EXAMINATION TYPE: XR chest 2V DATE OF EXAM: 12/27/2017 COMPARISON: Prior chest x-ray 12/26/2017 HISTORY: Pleural effusion, chest tube TECHNIQUE: Frontal and lateral views of the chest are obtained. FINDINGS: There is no significant change. IMPRESSION: Stable chest tube placement, interstitial lung disease. There may be minimal residual pl eural fluid.
[2017-12-27] MEDS: MULTIVITAMINS, THERA 1 EACH TAB PO SCH (11:27)
[2017-12-27 12:01] LABS: Glucose,Whole Blood 107 mg/dL (75-99)
--- NOTE | 2017-12-27 13:25 | P.PN ---
Subjective Progress Note Date: 12/27/17 Principal diagnosis: Left chest surgical site subcutaneous fluid collection, postoperative left- sided chest wall pain. Previous medical history of COPD, previous tobacco dependence, hypertension, hyperlipidemia, prostate disorder, Mnire's disease, hearing disorder. Status post left thoracotomy closure of diaphragmatic hernia with patch, repair of costochondral dislocation and subsequent lung herniation completed 11/22/2017. Recent diagnosis of paroxysmal atrial fibrillation last admission, placed on Lopressor which the patient stopped at home, not a candidate for anticoagulation per cardiology. POD #3 ultrasound-guided seroma drainage by interventional radiology Patient's currently sitting up to the bedside edge. He is in no acute distress. States his pain is well controlled this morning, he reports that he took a pain pill just to stay ahead of the pain. is at bedside. Questions answered to the best of my ability. Teaching regarding patient's disease process again reinforced with the patient and his . He is complaining of frequent loose stools reports that he has had 3-4 loose stools in the last 24 hours. Objective - Vital Signs Vital signs: Vital Signs Temp 97.6 F 12/27/17 06:22 Pulse 80 12/27/17 12:39 Resp 20 12/27/17 06:22 BP 117/71 12/27/17 06:22 Pulse Ox 93 L 12/27/17 06:22 Intake & Output 12/26/17 12/27/17 12/27/17 18:59 06:59 18:59 Intake Total 1518 400 Output Total 1268 710 Balance 250 -310 Weight 88.3 kg Intake: IV 350 Meropenem 1 gm In Sodium 100 Chloride 0.9% 100 ml @ 100 mls/hr IVPB Q8HR [facility] Rx#:[id number] Vancomycin 1,500 mg In 250 Sodium Chloride 0.9% 250 ml @ 125 mls/hr IVPB Q12H [facility] Rx#:[id number] Oral 1168 400 Output: Drainage 43 10 Left Lateral Chest 43 10 Urine 1225 700 Other: Voiding Method Bedside Commode Urinal # Voids 2 - Constitutional General appearance: Present: cooperative, no acute distress - EENT ENT: Present: hard of hearing (Hearing aid to right ear.) - Neck Details: Neck is supple, no JVD or lymphadenopathy. - Respiratory Details: Lung sounds with expiratory wheezes throughout, diminished to his bilateral bases. Respirations are symmetrical and nonlabored. Oxygen saturation is 97% on room air. He is achieving 1850 mL on his incentive spirometry. Left chest wall pigtail catheter with scant serous drainage. 10 mL output in the last 8 hours, 50 mL output in the last 24 hours. - Cardiovascular Details: Regular rhythm and rate. S1 and S2 present, negative for S3, gallop or murmur. Remote telemetry showing sinus tachycardia with occasional PVCs. Heart rate 103. Trace +1 edema to his bilateral lower extremity Jasbir. - Gastrointestinal Gastrointestinal Comment(s): Abdomen is soft, nontender and nondistended. Active bowel sounds all 4 abdominal quadrants. He is tolerating oral intake. 3-4 loose bowel movements in the last 24 hours. - Genitourinary Genitourinary Comment(s): Urine output adequate. Clear gianni urine per urinal. - Integumentary Integumentary Comment(s): Skin is warm, dry and pink. No clubbing or cyanosis. Left thoracotomy incision well approximated, residual scant redness present. - Neurologic Neurologic: Present: CNII-XII intact - Musculoskeletal Musculoskeletal: Present: gait normal, strength equal bilaterally - Psychiatric Psychiatric: Present: A&O x's 3, appropriate affect, intact judgment & insight - Allied health notes Allied health notes reviewed: nursing - Labs CBC & Chem 7: 12/27/17 07:36 12/27/17 07:36 Labs: Abnormal Lab Results - Last 24 Hours (Table) 12/26/17 12/26/17 12/27/17 Range/Units 17:27 20:55 07:36 WBC 17.3 H (3.8-10.6) k/uL RBC 4.10 L (4.30-5.90) m/uL Hgb 11.8 L (13.0-17.5) gm/dL Hct 37.2 L (39.0-53.0) % Plt Count 565 H (150-450) k/uL Neutrophils # 14.5 H (1.3-7.7) k/uL BUN (9-20) mg/dL POC Glucose (mg/dL) 124 H 174 H (75-99) mg/dL 12/27/17 12/27/17 Range/Units 07:36 11:58 WBC (3.8-10.6) k/uL RBC (4.30-5.90) m/uL Hgb (13.0-17.5) gm/dL Hct (39.0-53.0) % Plt Count (150-450) k/uL Neutrophils # (1.3-7.7) k/uL BUN 27 H (9-20) mg/dL POC Glucose (mg/dL) 107 H (75-99) mg/dL Microbiology - Last 24 Hours (Table) 12/22/17 09:00 Blood Culture - Preliminary Blood No Growth after 120 hours 12/24/17 14:51 Gram Stain - Preliminary Aspirate Body Fluid Culture - Preliminary 12/25/17 22:30 Urine Culture - Final Urine,Clean Catch 12/23/17 03:09 Blood Culture - Preliminary Blood No Growth after 96 hours - Imaging and Cardiology Chest x-ray: report reviewed, image reviewed Assessment and Plan (1) Chest wall abscess Current Visit: Yes Status: Acute Code(s): L02.213 - CUTANEOUS ABSCESS OF CHEST WALL SNOMED Code(s): 57368814 (2) Diaphragmatic hernia Current Visit: No Status: Acute Code(s): K44.9 - DIAPHRAGMATIC HERNIA WITHOUT OBSTRUCTION OR GANGRENE SNOMED Code(s): 09805310 (3) Mnire's disease Current Visit: No Status: Chronic Code(s): H81.09 - MENIERE'S DISEASE, UNSPECIFIED EAR SNOMED Code(s): 44825662 (4) Paroxysmal atrial fibrillation Current Visit: Yes Status: Acute Code(s): I48.0 - PAROXYSMAL ATRIAL FIBRILLATION SNOMED Code(s): 817145750 (5) COPD (chronic obstructive pulmonary disease) Current Visit: Yes Status: Chronic Code(s): J44.9 - CHRONIC OBSTRUCTIVE PULMONARY DISEASE, UNSPECIFIED SNOMED Code(s): 03047360 (6) Hard of hearing Current Visit: Yes Status: Chronic Code(s): H91.90 - UNSPECIFIED HEARING LOSS, UNSPECIFIED EAR SNOMED Code(s): 16505324 (7) History of hernia repair Current Visit: No Status: Chronic Code(s): Z98.890 - OTHER SPECIFIED POSTPROCEDURAL STATES; Z87.19 - PERSONAL HISTORY OF OTHER DISEASES OF THE DIGESTIVE SYSTEM SNOMED Code(s): 65181808734423 (8) Hyperlipidemia Current Visit: No Status: Chronic Code(s): E78.5 - HYPERLIPIDEMIA, UNSPECIFIED SNOMED Code(s): 46301929 (9) Hypertension Current Visit: No Status: Chronic Code(s): I10 - ESSENTIAL (PRIMARY) HYPERTENSION SNOMED Code(s): 10371272 (10) Prostate disorder Current Visit: No Status: Chronic Code(s): N42.9 - DISORDER OF PROSTATE, UNSPECIFIED SNOMED Code(s): 64914131 Plan: 1. Pain control with ordered medications. 2. Antibiotic management per infectious disease. Dr. Ovalles recommendations. Remove 3. Continue pigtail drain today. 4. Wean O2 as tolerated. Encourage incentive spirometry use 10 times every hour. 5. GI/DVT prophylaxis. 6. Will monitor daily chest x-rays. 7. Arrhythmia management per cardiology. 8. Bronchodilators, steroids per pulmonology. Dr. Moss recommendations. 9. Continue to reinforce disease management teaching with patient and . 10. More recommendations to follow as patient progresses in his care. Time with Patient: Greater than 30
--- NOTE | 2017-12-27 16:29 | P.PN ---
Subjective Progress Note Date: 12/27/17 Principal diagnosis: Left-sided severe pleuritic chest pain, loculated left pleural effusion with the severe,/abscess formation into the soft tissues, service, intermittent hypertension, severe COPD, perforated left diaphragm with fracture of costochondral junction status post repair of diaphragmatic and dislocation, generalized anxiety disorder, paroxysmal atrial fibrillation 12/27/2017, patient seen eval examined during the rounds is present at bedside patient does have mild degree or shortness of breath activity and exertion however cuff congestion and sputum production has improved significantly pain is improved where he did not require morphine he has not been using oxygen regularly given that the he has some dryness in the nose humidification has been admitted, patient is being planned for long-term IV antibiotics which will be provided likely an extended care facility patient will be discharged from here and we'll go to [facility] for couple of weeks to finish therapy patient has a drainage catheter by interventional radiology third day about 40 mL has been obtained today, over 72 hours no growth in the Gram stain and culture has been noted from the drainage, chest x-ray performed earlier this morning reviewed chest tube was stable with interstitial disease and a small residual fluid predominantly on the left side 12/26/2017, patient seen eval examined during the rounds the he continued to have issues associated with shortness of breath however noted that patient was without oxygen I applied the oxygen back with that he feels better, he still have for left-sided thoracic wall pain continued to require 3-4 times morphine, care plan discussed with thoracic surgery plan is to monitor observe as no significant output has been noted bulging in the intercostal ribs however appears to be slightly diminished and less tender, right heme edema at the incision size is stable no significant worsening has been seen so far culture continued to be negative no new growth has been noted, labs reviewed medications reviewed white cell count is 17,000 with a rise in WBC count we'll continue to taper down the steroids 12/25/2017, patient seen eval reexamined during the rounds he is sitting upright on the bed breathing comfortably severity of pain is better he gets short of breath on activity and exertion currently is on 4 L oxygen, patient underwent CT-guided pleural drainage catheter placement by interventional radiology about 100 mL of serous sanguinous fluid has been removed final ID and cultures are pending preliminary Gram stain revealed absence of organism however many white cells are seen, blood cultures 2 so far has been negative, labs reviewed medications reviewed we'll continue breathing treatment however start tapering down the steroids care plan discussed with the patient and at length patient may very well require home IV antibiotics via PICC line 12/24/2017, patient seen eval examined care plan discussed with the cardiovascular service and primary service, respiratory status overall stable and improved but still have significant pain requiring morphine every 6 hour cardiothoracic surgery is following the recommended for CT-guided or ultrasound- guided drainage by interventional radiology 12/23/2017, patient seen eval reexamined noted patient has slight fluid overload required IV Lasix continued to be on breathing treatments continue require pain medication seems to be controlling the severity of pain patient has been eval by cardiothoracic surgery furthermore definitely would intervention are being discussed Mr. Cheatham is a 72-year-old male well-known to me patient has a history of end- stage lung disease second to severe COPD emphysema patient has been doing relatively well since discharged recently after bilateral pneumonia treatment however started having recurrence of pain about 2 days ago patient was seen in the office yesterday his pain was minimal at that time he couldn't tolerate the [place] due to his the confusion and apneic episode he had some crackles present at the bases otherwise hemodynamic status was stable patient had at that time noted to have on outpatient setting low blood pressure however they did resolve after discontinuation of Lopressor patient was stable throughout the day however and of the day in the evening started having chest pain predominantly on the left side and dental pain becomes 10 out of 10 in addition subsequently patient started developing shortness of breath he started coughing with very thick tenacious yellowish-green mucus sputum and developed shortness of breath he was brought into the emergency department he was found to be did require a small bolus of crystalloid with with normal saline with the stabilization of blood pressure patient has been admitted into the hospital I've discussed with the emergency department service to consult Dr. Avila as the chest x-ray performed today revealed density on the left side has progressed in size from 4 cm to 7 cm in addition to that I will ask them to obtain a computed tomography scan of the chest which can be done without contrast. Patient is well-known to me he has been hospitalized and later part of September for acute COPD exacerbation and early October he was found to have a perforated left diaphragm which was repaired by Dr. Avila patient subsequently was rehospitalized 2 times with pneumonia at bases was eventually discharged in stable condition after extensive IV antibiotics patient was evaluated by infectious disease services Dr. Ovalles at that time as well recommended patient to be treated with Augmentin on outpatient basis Objective - Vital Signs Vital signs: Vital Signs Temp 97.5 F L 12/27/17 15:00 Pulse 88 12/27/17 15:55 Resp 18 12/27/17 15:00 BP 130/80 12/27/17 15:00 Pulse Ox 95 12/27/17 15:00 Intake & Output 12/26/17 12/27/17 12/27/17 18:59 06:59 18:59 Intake Total 1518 400 Output Total 1268 710 30 Balance 250 -310 -30 Weight 88.3 kg Intake: IV 350 Meropenem 1 gm In Sodium 100 Chloride 0.9% 100 ml @ 100 mls/hr IVPB Q8HR LEANDRO Rx#:[id number] Vancomycin 1,500 mg In 250 Sodium Chloride 0.9% 250 ml @ 125 mls/hr IVPB Q12H LEANDRO Rx#:[id number] Oral 1168 400 Output: Drainage 43 10 30 Left Lateral Chest 43 10 30 Urine 1225 700 Other: Voiding Method Bedside Commode Urinal # Voids 2 - Exam This is a well-developed well-nourished awake alert oriented 3 male Limitations: no limitations General appearance: alert, in no apparent distress Head exam: Present: atraumatic, normocephalic, normal inspection Eye exam: Present: normal appearance, PERRL, EOMI. Absent: scleral icterus, conjunctival injection, periorbital swelling ENT exam: Present: mucous membranes dry Neck exam: Present: normal inspection. Absent: tenderness, meningismus, lymphadenopathy Respiratory exam: Present: Bilateral basal few rales noted with overall improved air entry, no wheezing are present, chest wall tenderness, noted mild chest wall tenderness on the left the incision site appears to be intact no definite wound dehiscence mild some localized erythema noted without any significant discharge, respiratory distress, wheezes, rhonchi, stridor noted, overall exam not much change compared to yesterday, pleural drainage catheter is present connected with PITA drain Cardiovascular Exam: Present: regular rate, normal rhythm, normal heart sounds. Absent: systolic murmur, diastolic murmur, rubs, gallop, clicks GI/Abdominal exam: Present: soft, normal bowel sounds. Absent: distended, tenderness, guarding, rebound, rigid, bruit, pulsatile mass, hernia Rectal exam: Present: deferred Extremities exam: Present: normal inspection, full ROM, normal capillary refill. Absent: tenderness, pedal edema, joint swelling, calf tenderness Back exam: Present: normal inspection Neurological exam: Present: alert, oriented X3, CN II-XII intact Psychiatric exam: Present: normal affect, normal mood Skin exam: Present: warm, dry, intact, normal color. Absent: rash - Labs CBC & Chem 7: 12/27/17 07:36 12/27/17 07:36 Labs: Abnormal Lab Results - Last 24 Hours (Table) 12/26/17 12/26/17 12/27/17 Range/Units 17:27 20:55 07:36 WBC 17.3 H (3.8-10.6) k/uL RBC 4.10 L (4.30-5.90) m/uL Hgb 11.8 L (13.0-17.5) gm/dL Hct 37.2 L (39.0-53.0) % Plt Count 565 H (150-450) k/uL Neutrophils # 14.5 H (1.3-7.7) k/uL BUN (9-20) mg/dL POC Glucose (mg/dL) 124 H 174 H (75-99) mg/dL 12/27/17 12/27/17 Range/Units 07:36 11:58 WBC (3.8-10.6) k/uL RBC (4.30-5.90) m/uL Hgb (13.0-17.5) gm/dL Hct (39.0-53.0) % Plt Count (150-450) k/uL Neutrophils # (1.3-7.7) k/uL BUN 27 H (9-20) mg/dL POC Glucose (mg/dL) 107 H (75-99) mg/dL Microbiology - Last 24 Hours (Table) 12/22/17 09:00 Blood Culture - Preliminary Blood No Growth after 120 hours 12/24/17 14:51 Gram Stain - Preliminary Aspirate Body Fluid Culture - Preliminary 12/25/17 22:30 Urine Culture - Final Urine,Clean Catch 12/23/17 03:09 Blood Culture - Preliminary Blood No Growth after 96 hours Assessment and Plan Assessment: Leukocytosis likely related chronic inflammatory processes as well as steroids, will start tapering it down Acute on chronic hypoxic respirator failure on 4 L oxygen Left-sided severe postoperative pleuritic chest pain Left thoracic wall seroma/abscess Left-sided loculated pleural effusion appearing as a lung mass which is pleural based Low-grade Sir[place] early sepsis cannot be excluded with the presentation with hypotension did respond with crystalloids Severe COPD Recent perforated left diaphragm with fracture of costochondral junction requiring repair Hypertension hypertensive cardiovascular disease Generalized anxiety disorder History of paroxysmal atrial fibrillation couldn't tolerate Lopressor cardiology has evaluated him in the past not considered to be a candidate for anticoagulation Plan: Continue bronchodilators, continue Solu-Medrol will start tapering it down Pain control Continue antibiotics with ID service has been following Fading further intervention as per thoracic surgery A computed tomography scan of the chest reviewed Continue home medications including breathing treatments maintain patient on DVT and peptic ulcer disease prophylaxis increase activity as tolerated further recommendations pending plan of care as per clinical response of the patient Follow-up on culture results and report Time with Patient: Greater than 30
[2017-12-27 17:05] LABS: Glucose,Whole Blood 142 mg/dL (75-99)
[2017-12-27] MEDS: FINASTERIDE 5 MG TAB PO SCH (20:22)
[2017-12-27 21:20] LABS: Glucose,Whole Blood 93 mg/dL (75-99)
[2017-12-27] MEDS: MELATONIN 5 MG TABLET PO SCH (21:23)
[2017-12-27] MEDS: TAMSULOSIN 0.4 MG CAP.ER.24H PO SCH (21:23)
[2017-12-27] MEDS: ATORVASTATIN 20 MG TAB PO SCH (21:23)
[2017-12-27] MEDS: MONTELUKAST 10 MG TAB PO SCH (21:23)
[2017-12-27] MEDS: ACETAMINOPHEN TAB 325 MG TAB PO PRN (21:23)
--- NOTE | 2017-12-27 23:38 | P.PN ---
Subjective Progress Note Date: 12/27/17 Principal diagnosis: Shortness of breath Pleasant 72-year-old male presents to Hospital for significant and ongoing pain. This pleasant gentleman relates that in early October he was having significant difficulty with severe cough related to COPD and underlying infection. His related that he coughed so hard he caused a costochondral dislocation as well as a left diaphragmatic rupture with herniation. He was evaluated by Dr. Avila to cardiothoracic surgery was taken to the operating room where a thoracotomy was performed for appear of the diaphragm with mesh as well as repair of the costochondral dislocation. Postoperatively the patient was doing relatively well and was sent home on 11/26/2017. In home setting was doing relatively well. Over significant difficulties was more cough his pain became uncontrolled presented back to the emergency center and was admitted earlier in November. The patient again improved and has been home recovering further but then again developed severe pain to the left chest. Follow-up computed tomography scan has been performed in the emergency center and there is a significant increase in the amount of fluid that is outside of the pleural space into the tissue of the chest. This appears to be causing him severe pain he subsequently is admitted. Infectious disease consult for antibiotic therapy. 12/23/2017 the patient continues to feel poorly. He is quite short of breath and continues to have pain into his chest. I discussed the case with the nurse practitioner of the thoracic surgeon, the patient also may recurrence of some atrial fibrillation and is having some regularity at this time is having some increasing shortness of breath. Cardiology was requested to see him again. Patient's family is distinctly unhappy that the patient is having difficulties with multiple hospitalizations, they were unpleasant to this provider and although I was trying to provide some information admitted very clear that I am not the cardiac thoracic surgeon and I'm only a [employer] sales consultant trying to work to help him feel better. 12/24/2017 reveals the patient feeling considerably better today. The percutaneous drainage has occurred which has allowed an immediate reduction in his pain and discomfort and shortness of breath is much improved. He is considerably happier today than yesterday. His is also much more content seen at the patient is feeling better. 12/25/2017 patient continues to feel better. He is actually without pain for the first time in many days. His shortness of breath is improved but still has poor exercise tolerance with activity. He however is very pleased with his improvement. 12/27/2017 reveals the patient be feeling considerably better today than yesterday. He is up and moving without severe shortness of breath. Chest pain is resolved. Having a much better today and he has since his admission. Patient and 's questions are answered to the best of debility. Questions about catheter removal are related to the cardiothoracic surgeon. Objective - Vital Signs Vital signs: Vital Signs Temp 97.5 F L 12/27/17 15:00 Pulse 100 12/27/17 20:44 Resp 18 12/27/17 15:00 BP 130/80 12/27/17 15:00 Pulse Ox 95 12/27/17 15:00 Intake & Output 12/27/17 12/27/17 12/28/17 06:59 18:59 06:59 Intake Total 400 Output Total 710 30 950 Balance -310 -30 -950 Weight 88.3 kg Intake: Oral 400 Output: Drainage 10 30 Left Lateral Chest 10 30 Urine 700 950 Other: Voiding Method Bedside Commode Urinal - Exam Pleasant 72-year-old gentleman who relates he is much more comfortable now than 24 hours ago. HEENT: Anicteric conjunctiva are pink and moist nasal mucosa grossly intact without significant lesions, there is no thrush. Neck: The neck is supple without significant lymphadenopathy or thyromegaly. Lungs: They're symmetrical air entry there are crackles at the left base but no britney bronchial sounds no dullness or egophony. Is able to take good deep breaths with only minimal discomfort and does not have significant coughing with a deep breath. The percutaneous drain is in place and only a scant amount of a thin serosanguineous material is noted. Heart: Irregular with an audible S1 and S2 without S4. There is no significant murmur click or rub, PMI was nondisplaced. Abdomen: Positive bowel sounds soft and nontender without palpable masses or organomegaly. There was no guarding or rebound. Extremities: The upper extremities have excellent pulses they are symmetric, no significant petechiae or telangiectasia. No splinter hemorrhages were noted. The lower extremities are free from significant edema. The peripheral pulses were 2+ and symmetric. Neuro: Awake alert oriented to person place and time. There are no acute new gross focal sensory motor deficits. Surgical wound to the left chest in the thoracotomy position is well-healed however erythema persists dressing is in place for the percutaneous drainage - Labs CBC & Chem 7: 12/27/17 07:36 12/27/17 07:36 Labs: Abnormal Lab Results - Last 24 Hours (Table) 12/27/17 12/27/17 12/27/17 Range/Units 07:36 07:36 11:58 WBC 17.3 H (3.8-10.6) k/uL RBC 4.10 L (4.30-5.90) m/uL Hgb 11.8 L (13.0-17.5) gm/dL Hct 37.2 L (39.0-53.0) % Plt Count 565 H (150-450) k/uL Neutrophils # 14.5 H (1.3-7.7) k/uL BUN 27 H (9-20) mg/dL POC Glucose (mg/dL) 107 H (75-99) mg/dL 12/27/17 Range/Units 17:00 WBC (3.8-10.6) k/uL RBC (4.30-5.90) m/uL Hgb (13.0-17.5) gm/dL Hct (39.0-53.0) % Plt Count (150-450) k/uL Neutrophils # (1.3-7.7) k/uL BUN (9-20) mg/dL POC Glucose (mg/dL) 142 H (75-99) mg/dL Microbiology - Last 24 Hours (Table) 12/22/17 09:00 Blood Culture - Preliminary Blood No Growth after 120 hours 12/24/17 14:51 Gram Stain - Preliminary Aspirate Body Fluid Culture - Preliminary 12/25/17 22:30 Urine Culture - Final Urine,Clean Catch 12/23/17 03:09 Blood Culture - Preliminary Blood No Growth after 96 hours Laboratory Results WBC 17.3 k/uL (3.8-10.6) H 12/27/17 07:36 RBC 4.10 m/uL (4.30-5.90) L 12/27/17 07:36 Hgb 11.8 gm/dL (13.0-17.5) L 12/27/17 07:36 Hct 37.2 % (39.0-53.0) L 12/27/17 07:36 MCV 90.6 fL (80.0-100.0) 12/27/17 07:36 MCH 28.8 pg (25.0-35.0) 12/27/17 07:36 MCHC 31.8 g/dL (31.0-37.0) 12/27/17 07:36 RDW 13.5 % (11.5-15.5) 12/27/17 07:36 Plt Count 565 k/uL (150-450) H 12/27/17 07:36 Neutrophils % 84 % 12/27/17 07:36 Lymphocytes % 8 % 12/27/17 07:36 Monocytes % 5 % 12/27/17 07:36 Eosinophils % 1 % 12/27/17 07:36 Basophils % 0 % 12/27/17 07:36 Neutrophils # 14.5 k/uL (1.3-7.7) H 12/27/17 07:36 Lymphocytes # 1.5 k/uL (1.0-4.8) 12/27/17 07:36 Monocytes # 0.9 k/uL (0-1.0) 12/27/17 07:36 Eosinophils # 0.1 k/uL (0-0.7) 12/27/17 07:36 Basophils # 0.0 k/uL (0-0.2) 12/27/17 07:36 Hypochromasia Slight 12/24/17 05:29 PT 10.2 sec (9.0-12.0) 12/22/17 09:00 INR 1.0 (<1.2) 12/22/17 09:00 APTT 23.3 sec (22.0-30.0) 12/22/17 09:00 Sodium 138 mmol/L (137-145) 12/27/17 07:36 Potassium 4.1 mmol/L (3.5-5.1) 12/27/17 07:36 Chloride 100 mmol/L (98-107) 12/27/17 07:36 Carbon Dioxide 28 mmol/L (22-30) 12/27/17 07:36 Anion Gap 10 mmol/L 12/27/17 07:36 BUN 27 mg/dL (9-20) H 12/27/17 07:36 Creatinine 0.79 mg/dL (0.66-1.25) 12/27/17 07:36 Est GFR (MDRD) Af Amer >60 (>60 ml/min/1.73 sqM) 12/27/17 07:36 Est GFR (MDRD) Non-Af >60 (>60 ml/min/1.73 sqM) 12/27/17 07:36 Glucose 79 mg/dL (74-99) 12/27/17 07:36 POC Glucose (mg/dL) 93 mg/dL (75-99) 12/27/17 21:12 POC Glu Level Vial Inspector Yaa Nicholson 12/27/17 21:[address] Glu mg/dL 123 12/24/17 05:29 Hemoglobin A1c 5.9 % (4.0-6.0) 12/24/17 05:29 Plasma Lactic Acid Geo 0.9 mmol/L (0.7-2.0) 12/23/17 03:09 Calcium 9.2 mg/dL (8.4-10.2) 12/27/17 07:36 Magnesium 2.0 mg/dL (1.6-2.3) 12/22/17 09:00 Total Bilirubin 1.2 mg/dL (0.2-1.3) 12/22/17 09:00 AST 31 U/L (17-59) 12/22/17 09:00 ALT 30 U/L (21-72) 12/22/17 09:00 Alkaline Phosphatase 99 U/L (38-126) 12/22/17 09:00 Total Creatine Kinase 39 U/L (55-170) L 12/22/17 09:00 CK-MB (CK-2) 1.4 ng/mL (0.0-2.4) 12/22/17 09:00 CK-MB (CK-2) Rel Index 3.6 12/22/17 09:00 Troponin I 0.197 ng/mL (0.000-0.034) H* 12/24/17 05:29 NT-Pro-B Natriuret Pep 2350 pg/mL 12/23/17 18:05 Total Protein 6.0 g/dL (6.3-8.2) L 12/22/17 09:00 Albumin 3.0 g/dL (3.5-5.0) L 12/22/17 09:00 Urine Color Yellow 12/25/17 22:30 Urine Appearance Clear (Clear) 12/25/17 22:30 Urine pH 5.5 (5.0-8.0) 12/25/17 22:30 Ur Specific Lena 1.019 (1.001-1.035) 12/25/17 22:30 Urine Protein Negative (Negative) 12/25/17 22:30 Urine Glucose (UA) Negative (Negative) 12/25/17 22:30 Urine Ketones Negative (Negative) 12/25/17 22:30 Urine Blood Negative (Negative) 12/25/17 22:30 Urine Nitrite Negative (Negative) 12/25/17 22:30 Urine Bilirubin Negative (Negative) 12/25/17 22:30 Urine Urobilinogen <2.0 mg/dL (<2.0) 12/25/17 22:30 Ur Leukocyte Esterase Negative (Negative) 12/25/17 22:30 Vancomycin Trough 13.9 ug/mL 12/25/17 08:13 Influenza Type A RNA Not Detected (Not Detectd) 12/22/17 09:00 Influenza Type B (PCR) Not Detected (Not Detectd) 12/22/17 09:00 Microbiology 12/22/17 09:00 Blood Blood Culture - Preliminary No Growth after 120 hours 12/24/17 14:51 Aspirate Gram Stain - Preliminary 12/24/17 14:51 Aspirate Body Fluid Culture - Preliminary 12/25/17 22:30 Urine,Clean Catch Urine Culture - Final 12/23/17 03:09 Blood Blood Culture - Preliminary No Growth after 96 hours Assessment and Plan (1) Diaphragmatic hernia Current Visit: No Status: Acute Code(s): K44.9 - DIAPHRAGMATIC HERNIA WITHOUT OBSTRUCTION OR GANGRENE SNOMED Code(s): 45455518 (2) Pleural effusion Current Visit: No Status: Acute Code(s): J90 - PLEURAL EFFUSION, NOT ELSEWHERE CLASSIFIED SNOMED Code(s): 34148660 (3) COPD (chronic obstructive pulmonary disease) Current Visit: Yes Status: Chronic Code(s): J44.9 - CHRONIC OBSTRUCTIVE PULMONARY DISEASE, UNSPECIFIED SNOMED Code(s): 68241382 (4) Chest wall abscess Narrative/Plan: 72-year-old male presents to Hospital with a marked increase of pain to his left chest. This is quite similar to what he's been suffering from in the recent past. It is noted he started with a diaphragmatic rupture requiring thoracic surgical repair. Since then he's been having some difficulties with the current infection at that site. He was actually doing relatively well over the last many days until he had the sudden onset of severe pain and left chest making it hard to breathe every breath was extremely painful because he presented to the emergency center. Fortunately with narcotic therapies he is feeling better at this time. We will initiate antibiotic therapy at this time vancomycin and meropenem will be utilized because he's having some fever. The cardiac thoracic surgical team has been consulted and we await their input as far as her plan. The patient is significant increase the amount of fluid into the soft tissue of the chest wall. An very concerned that this is abscess given the erythema tenderness pain and fever that he is suffering from. Cultures are pending. If the site is incised and drained certainly deep cultures will be helpful to further direct ongoing antibiotic therapy. Pain control currently is adequate. Continue his respiratory treatments and oxygen therapy. She has importance of adequate protein intake for his healing. Multivitamin is ensured. 12/23/2017 cultures are in process at this point in time. Continue intravenous antibiotic therapy. Have asked for cardiology consultation with concerns to recurrent her intermittent atrial fibrillation. Have discussed the case with current thoracic surgery and hopefully will proceed to surgical intervention in the near future. 12/24/2017 reveals the patient to be considerably improved now that he has had the percutaneous drainage of the fluid collection to the left anterior chest wall catheter appears site of his ruptured diaphragmatic hernia. The patient is definitely improved today and is much more content. Cardiology has seen him in the area utilizing aspirin therapy at this time they have not been able to replicate any further atrial fibrillation. He was monitored closely by cardiology in the outpatient setting. Cardiothoracic surgery was also monitored to ensure that he has a good result with percutaneous drainage. They will follow with recurrent scans to ensure that it is improving. As to antibiotic therapy cultures from the percutaneous drainage for further help direct but likely will utilize outpatient intravenous antibiotic therapy with vancomycin. 12/25/2017 reveals the patient to have even further improvement in that he's having no pain after his percutaneous drainage. The best that he has felt since October. We'll continue to work toward outpatient intravenous antibiotic therapy with vancomycin at his discharge. No evidence of any further cardiac dysrhythmia. 12/27/2017 reveals the patient to be having a very good day today. He's not having much pain or discomfort. Shortness of breath is minimal. No fevers or chills. Energy levels improving. Eating well. We'll plan vancomycin and ertapenem to complete his outpatient course of intravenous antibiotic therapy. Current Visit: Yes Status: Acute Code(s): L02.213 - CUTANEOUS ABSCESS OF CHEST WALL SNOMED Code(s): 51980068
[2017-12-28] MEDS: HYDROcodone/APAP 10-325MG 1 EACH TAB PO PRN (00:47)
[2017-12-28] MEDS: MEROPENEM 1 GM in SODIUM CHLORIDE 0.9% 100 ML IVPB SCH ×3 (00:47→16:54)
[2017-12-28] MEDS: HEPARIN SODIUM,PORCINE 5,000 UNIT/ML 1 ML VIAL SQ SCH ×3 (00:48→16:53)
[2017-12-28] MEDS: FUROSEMIDE 10 MG/ML 4 ML VIAL IV SCH ×2 (06:15→17:26)
[2017-12-28 06:56] LABS: Appearance,Urine Clear (Clear); Bilirubin,Urine Negative (Negative); Blood,Urine Negative (Negative); Color,Urine Light Yellow; Glucose,Urine (UA) Negative (Negative); Ketones,Urine Negative (Negative); Leukocyte Esterase,Urine Negative (Negative); Protein,Urine Negative (Negative); Specific Gravity,Urine 1.007 (1.001-1.035); Urobilinogen,Urine <2.0 mg/dL (<2.0)
[2017-12-28 07:13] LABS: Glucose,Whole Blood 83 mg/dL (75-99)
[2017-12-28] MEDS: INSULIN ASPART 100 UNIT/ML 1 ML 10 ML VIAL SQ SCH ×4 (07:40→21:29)
[2017-12-28] MEDS: BUDESONIDE 0.5 MG/2 ML NEBU INHALATION SCH ×2 (07:57→20:11)
[2017-12-28] MEDS: IPRATROPIUM-ALBUTEROL 3 ML NEB INHALATION SCH ×4 (07:57→20:11)
[2017-12-28] MEDS: MECLIZINE 25 MG TAB PO SCH (08:46)
[2017-12-28] MEDS: PANTOPRAZOLE 40 MG TABLET PO SCH (08:46)
[2017-12-28] MEDS: SENNOSIDES-DOCUSATE SODIUM 1 EACH TAB PO SCH ×2 (08:46→21:27)
[2017-12-28] MEDS: methylPREDNISolone SOD SUCCI 40 MG/ML 1 ML VIAL IV SCH ×2 (08:46→21:26)
[2017-12-28] MEDS: METOPROLOL TARTRATE 25 MG TAB PO SCH ×2 (08:46→21:26)
[2017-12-28] MEDS: ASPIRIN 81 MG PO SCH (08:46)
[2017-12-28] MEDS: BENZONATATE 100 MG CAP PO SCH ×3 (08:46→21:26)
[2017-12-28] MEDS: LISINOPRIL 5 MG TAB PO SCH (08:46)
[2017-12-28] MEDS: ALPRAZolam 0.25 MG TAB PO PRN ×3 (08:49→21:26)
--- NOTE | 2017-12-28 09:54 | P.PN ---
Subjective Progress Note Date: 12/26/17 Personal being dictated for Dr. Avendano. Interval history: This 72-year-old gentleman admitted with shortness of breath, left pleural effusion, seroma, status post ultrasound-guided insertion of left pleural pigtail catheter per seroma drainage by interventional radiology and multiple other medical issues. Chest x-ray reporting similar findings to prior exam with minimal residual pleural fluid, interstitial lung disease. Around pigtail catheter site , 5 cm area of swelling present. Discussed further with cardiovascular surgery with no further drainage planned. Shortness of breath improving. Denies chest pain, palpitations. Afebrile. Review of systems: CONSTITUTIONAL: No fever, generalized weakness HEENT: No recent visual problems or hearing problems. Denied any sore throat. CARDIOVASCULAR: No chest pain, no palpitations, no syncope. PULMONARY: Improving shortness of breath, no cough, no hemoptysis. Left-sided thoracic/chest wall pain-less tender. GASTROINTESTINAL: No diarrhea, no nausea, no vomiting, no abdominal pain. Normoactive bowel sounds. NEUROLOGICAL: No headaches, no weakness, no numbness. HEMATOLOGICAL: Denies any bleeding or petechiae. GENITOURINARY: Denies any burning micturition, frequency, or urgency. MUSCULOSKELETAL/RHEUMATOLOGICAL: Denies any joint pain, swelling, or any muscle pain. ENDOCRINE: Denies any polyuria or polydipsia. The rest of the 14 point review of systems is negative Active Medications Acetaminophen (Tylenol Tab) 650 mg PO Q6HR PRN PRN Reason: Fever and/ or MILD Pain Last Admin: 12/23/17 23:49 Dose: 650 mg Hydrocodone Bitart/Acetaminophen ([place] 10) 1 each PO QID PRN PRN Reason: moderate Pain Last Admin: 12/26/17 06:37 Dose: 1 each Albuterol/Ipratropium (Duoneb 0.5 Mg-3 Mg/3 Ml Soln) 3 ml INHALATION RT-QID [facility] Last Admin: 12/26/17 15:34 Dose: 3 ml Alprazolam (Xanax) 0.25 mg PO TID PRN PRN Reason: Anxiety Last Admin: 12/26/17 16:11 Dose: 0.25 mg Aspirin (Aspirin) 81 mg PO DAILY [facility] Last Admin: 12/26/17 09:10 Dose: 81 mg Atorvastatin Calcium (Lipitor) 20 mg PO HS [facility] Last Admin: 12/25/17 20:56 Dose: 20 mg Benzonatate (Tessalon Perles) 200 mg PO TID [facility] Last Admin: 12/26/17 16:08 Dose: 200 mg Budesonide (Pulmicort) 0.5 mg INHALATION RT-BID [facility] Last Admin: 12/26/17 07:41 Dose: 0.5 mg Finasteride (Proscar) 5 mg PO [facility] Last Admin: 12/25/17 20:56 Dose: 5 mg Furosemide (Lasix) 40 mg IV BID@0600,1800 [facility] Last Admin: 12/26/17 16:08 Dose: 40 mg Heparin Sodium (Porcine) (Heparin) 5,000 unit SQ Q8HR [facility] Last Admin: 12/26/17 16:08 Dose: 5,000 unit Meropenem 1 gm/ Sodium (Chloride) 100 mls @ 100 mls/hr IVPB Q8HR [facility] Last Admin: 12/26/17 16:08 Dose: 100 mls/hr Vancomycin HCl 1,500 mg/ (Sodium Chloride) 250 mls @ 125 mls/hr IVPB Q12H [facility] Last Admin: 12/26/17 09:10 Dose: 125 mls/hr Insulin Aspart (Novolog) 0 unit SQ ACHS [facility] PRN Reason: Protocol Last Admin: 12/26/17 17:36 Dose: Not Given Lisinopril (Zestril) 5 mg PO DAILY [facility] Last Admin: 12/26/17 09:10 Dose: 5 mg Meclizine HCl (Antivert) 25 mg PO DAILY [facility] Last Admin: 12/26/17 09:10 Dose: 25 mg Melatonin (Melatonin) 5 mg PO [facility] Last Admin: 12/25/17 20:56 Dose: 5 mg Methylprednisolone Sodium Succinate (Solu-Medrol) 40 mg IV Q12HR [facility] Last Admin: 12/26/17 09:10 Dose: 40 mg Metoprolol Tartrate (Lopressor) 25 mg PO BID [facility] Last Admin: 12/26/17 09:10 Dose: 25 mg Miscellaneous Information (Rx Info: Iv Contrast Was Given) 1 each MISCELLANE DAILY PRN PRN Reason: Per Protocol Stop: 12/26/17 20:24 Montelukast Sodium (Singulair) 10 mg PO [facility] Last Admin: 02/27/18 20:56 Dose: 10 mg Morphine Sulfate (Morphine Oral [place] 2mg/Ml) 12 mg PO Q4H PRN PRN Reason: Severe Pain Multivitamins (Theragran) 1 each PO DAILY@1200 [facility] Last Admin: 12/26/17 09:10 Dose: 1 each Naloxone HCl (Narcan) 0.2 mg IV Q2M PRN PRN Reason: Opioid Reversal Pantoprazole Sodium (Protonix) 40 mg PO DAILY [facility] Last Admin: 12/26/17 09:10 Dose: 40 mg Senna/Docusate Sodium (Senokot-S) 1 each PO BID [facility] Last Admin: 12/26/17 07:28 Dose: Not Given Tamsulosin HCl (Flomax) 0.4 mg PO HS [facility] Last Admin: 12/25/17 20:56 Dose: 0.4 mg Objective - Vital Signs Vital signs: Vital Signs Temp 96.9 F L 12/26/17 15:00 Pulse 96 12/26/17 15:46 Resp 18 12/26/17 15:00 BP 126/83 12/26/17 15:00 Pulse Ox 93 L 12/26/17 15:00 Intake & Output 12/25/17 12/26/17 12/26/17 18:59 06:59 18:59 Intake Total 1290 100 350 Output Total 838 1350 Balance 452 -1250 350 Weight 88 kg Intake: IV 350 Meropenem 1 gm In Sodium 100 Chloride 0.9% 100 ml @ 100 mls/hr IVPB Q8HR [facility] Rx#:[id number] Vancomycin 1,500 mg In 250 Sodium Chloride 0.9% 250 ml @ 125 mls/hr IVPB Q12H [facility] Rx#:[id number] Oral 1290 100 Output: Drainage 10 Left Lateral Chest 10 Urine 828 1350 Other: # Voids 700 2 - Exam PHYSICAL EXAM: VITAL SIGNS: As above GENERAL: Sitting up at side of bed, no acute distress HEENT: Conjunctivae normal. eyes normal. NECK: No JVD. No thyroid enlargement. No LNs CARDIOVASCULAR: S1, S2 muffled. No murmur RESPIRATION: Breath sounds diminished in the bases. Scattered rhonchi and crackles. Fine expiratory wheezing scattered. Left pleural pigtail catheter present, minimal serous drainage. ABDOMEN: Soft, nontender . No guarding. no masses palpable. Bowel sounds heard. LEGS: Trace edema. no swelling PSYCHIATRY: Alert and oriented -3, mood and affect normal. NERVOUS SYSTEM: Cranial N 2-12 grossly normal. Moves all 4 limbs. Diffuse weakness No focal deficits. Skin: no ulcer no rash Joints: No active swelling. No inflammation. Lymphatic system. No LN neck axilla or groin. MICROBIOLOGY 12/22/17 09:00 Blood Blood Culture - Preliminary No Growth after 96 hours 12/25/17 22:30 Urine,Clean Catch Urine Culture - Preliminary 12/24/17 14:51 Aspirate Gram Stain - Preliminary 12/24/17 14:51 Aspirate Body Fluid Culture - Preliminary 12/23/17 03:09 Blood Blood Culture - Preliminary No Growth after 72 hours - Labs CBC & Chem 7: 12/27/17 07:36 12/27/17 07:36 Labs: Abnormal Lab Results - Last 24 Hours (Table) 12/25/17 12/26/17 12/26/17 Range/Units 20:55 07:22 07:51 WBC 17.8 H (3.8-10.6) k/uL RBC 3.72 L (4.30-5.90) m/uL Hgb 10.9 L (13.0-17.5) gm/dL Hct 33.7 L (39.0-53.0) % Plt Count 526 H (150-450) k/uL Neutrophils # 16.0 H (1.3-7.7) k/uL Lymphocytes # 0.8 L (1.0-4.8) k/uL Sodium (137-145) mmol/L BUN (9-20) mg/dL Glucose (74-99) mg/dL POC Glucose (mg/dL) 131 H 116 H (75-99) mg/dL 12/26/17 12/26/17 12/26/17 Range/Units 07:51 12:10 17:27 WBC (3.8-10.6) k/uL RBC (4.30-5.90) m/uL Hgb (13.0-17.5) gm/dL Hct (39.0-53.0) % Plt Count (150-450) k/uL Neutrophils # (1.3-7.7) k/uL Lymphocytes # (1.0-4.8) k/uL Sodium 136 L (137-145) mmol/L BUN 26 H (9-20) mg/dL Glucose 105 H (74-99) mg/dL POC Glucose (mg/dL) 110 H 124 H (75-99) mg/dL Microbiology - Last 24 Hours (Table) 12/22/17 09:00 Blood Culture - Preliminary Blood No Growth after 96 hours 12/25/17 22:30 Urine Culture - Preliminary Urine,Clean Catch 12/24/17 14:51 Gram Stain - Preliminary Aspirate Body Fluid Culture - Preliminary 12/23/17 03:09 Blood Culture - Preliminary Blood No Growth after 72 hours Assessment and Plan Assessment: 1. Shortness of breath, possibly multifactorial, acute COPD exacerbation, acute on chronic exacerbation CHF diastolic dysfunction, EF 50-55% 2. Moderate mitral regurgitation 3. Mild to moderate tricuspid regurgitation 4. Left-sided pleural effusion, loculated pleural effusion, status post pigtail catheter 5. Possible seroma 6. 5.9 x 5.9 x 1.8 cm fluid collection along the pleura abdominal wall musculature 7. Hiatal hernia 8. History of left thoracotomy, closure of diaphragmatic hernia with patch and repair costochondral dislocation and subsequent lung herniation 9. Remote history of nicotine dependence. Plan: Continue on current medication regime ,monitoring and symptomatic treatment. Maintained in nebulized bronchodilators, steroids. Aggressive pulmonary toileting. Steroid tapering in progress as per pulmonary. Antibiotics as per infectious disease. Increase ambulation as tolerated. Pain control. Pigtail drainage continues, follow-up chest x-ray in a.m. managed by cardiovascular surgery. GI and DVT prophylaxis in place. PT/OT. The impression and plan of care has been dictated as directed. : I performed a history and examination of this patient, discussed the same with the dictator. I agree with the dictator's note ,documented as a scribe. Any additional findings or plans will be noted.
[2017-12-28] MEDS: VANCOMYCIN 1,500 MG in SODIUM CHLORIDE 0.9% 250 ML IVPB SCH ×2 (10:20→21:27)
--- NOTE | 2017-12-28 11:00 | P.PN ---
Subjective Personal being dictated for Dr. Avendano. Interval history: This 72-year-old gentleman admitted with shortness of breath, left pleural effusion, seroma, status post ultrasound-guided insertion of left pleural pigtail catheter per seroma drainage by interventional radiology and multiple other medical issues. Chest x-ray reporting similar findings to prior exam with minimal residual pleural fluid, interstitial lung disease. Around pigtail catheter site , 5 cm area of swelling present. Discussed further with cardiovascular surgery with no further drainage planned. Shortness of breath improving. Denies chest pain, palpitations. Afebrile. Review of systems: CONSTITUTIONAL: No fever, generalized weakness HEENT: No recent visual problems or hearing problems. Denied any sore throat. CARDIOVASCULAR: No chest pain, no palpitations, no syncope. PULMONARY: Improving shortness of breath, no cough, no hemoptysis. Left-sided thoracic/chest wall pain-less tender. GASTROINTESTINAL: No diarrhea, no nausea, no vomiting, no abdominal pain. Normoactive bowel sounds. NEUROLOGICAL: No headaches, no weakness, no numbness. HEMATOLOGICAL: Denies any bleeding or petechiae. GENITOURINARY: Denies any burning micturition, frequency, or urgency. MUSCULOSKELETAL/RHEUMATOLOGICAL: Denies any joint pain, swelling, or any muscle pain. ENDOCRINE: Denies any polyuria or polydipsia. The rest of the 14 point review of systems is negative Active Medications Acetaminophen (Tylenol Tab) 650 mg PO Q6HR PRN PRN Reason: Fever and/ or MILD Pain Last Admin: 12/23/17 23:49 Dose: 650 mg Hydrocodone Bitart/Acetaminophen ([place] 10) 1 each PO QID PRN PRN Reason: moderate Pain Last Admin: 12/26/17 06:37 Dose: 1 each Albuterol/Ipratropium (Duoneb 0.5 Mg-3 Mg/3 Ml Soln) 3 ml INHALATION RT-QID [facility] Last Admin: 12/26/17 15:34 Dose: 3 ml Alprazolam (Xanax) 0.25 mg PO TID PRN PRN Reason: Anxiety Last Admin: 12/26/17 16:11 Dose: 0.25 mg Aspirin (Aspirin) 81 mg PO DAILY [facility] Last Admin: 12/26/17 09:10 Dose: 81 mg Atorvastatin Calcium (Lipitor) 20 mg PO HS [facility] Last Admin: 12/25/17 20:56 Dose: 20 mg Benzonatate (Tessalon Perles) 200 mg PO TID [facility] Last Admin: 12/26/17 16:08 Dose: 200 mg Budesonide (Pulmicort) 0.5 mg INHALATION RT-BID [facility] Last Admin: 12/26/17 07:41 Dose: 0.5 mg Finasteride (Proscar) 5 mg PO HS [facility] Last Admin: 12/25/17 20:56 Dose: 5 mg Furosemide (Lasix) 40 mg IV BID@0600,1800 [facility] Last Admin: 12/26/17 16:08 Dose: 40 mg Heparin Sodium (Porcine) (Heparin) 5,000 unit SQ Q8HR [facility] Last Admin: 12/26/17 16:08 Dose: 5,000 unit Meropenem 1 gm/ Sodium (Chloride) 100 mls @ 100 mls/hr IVPB Q8HR [facility] Last Admin: 12/26/17 16:08 Dose: 100 mls/hr Vancomycin HCl 1,500 mg/ (Sodium Chloride) 250 mls @ 125 mls/hr IVPB Q12H [facility] Last Admin: 12/26/17 09:10 Dose: 125 mls/hr Insulin Aspart (Novolog) 0 unit SQ ACHS [facility] PRN Reason: Protocol Last Admin: 12/26/17 17:36 Dose: Not Given Lisinopril (Zestril) 5 mg PO DAILY [facility] Last Admin: 12/26/17 09:10 Dose: 5 mg Meclizine HCl (Antivert) 25 mg PO DAILY [facility] Last Admin: 12/26/17 09:10 Dose: 25 mg Melatonin (Melatonin) 5 mg PO [facility] Last Admin: 12/25/17 20:56 Dose: 5 mg Methylprednisolone Sodium Succinate (Solu-Medrol) 40 mg IV Q12HR [facility] Last Admin: 12/26/17 09:10 Dose: 40 mg Metoprolol Tartrate (Lopressor) 25 mg PO BID [facility] Last Admin: 12/26/17 09:10 Dose: 25 mg Miscellaneous Information (Rx Info: Iv Contrast Was Given) 1 each MISCELLANE DAILY PRN PRN Reason: Per Protocol Stop: 12/26/17 20:24 Montelukast Sodium (Singulair) 10 mg PO [facility] Last Admin: 12/25/17 20:56 Dose: 10 mg Morphine Sulfate (Morphine Oral [place] 2mg/Ml) 12 mg PO Q4H PRN PRN Reason: Severe Pain Multivitamins (Theragran) 1 each PO DAILY@1200 [facility] Last Admin: 12/26/17 09:10 Dose: 1 each Naloxone HCl (Narcan) 0.2 mg IV Q2M PRN PRN Reason: Opioid Reversal Pantoprazole Sodium (Protonix) 40 mg PO DAILY [facility] Last Admin: 12/26/17 09:10 Dose: 40 mg Senna/Docusate Sodium (Senokot-S) 1 each PO BID [facility] Last Admin: 12/26/17 07:28 Dose: Not Given Tamsulosin HCl (Flomax) 0.4 mg PO HS [facility] Last Admin: 12/25/17 20:56 Dose: 0.4 mg 12/27/2017 breathing continues to improve. Chest wall pain better controlled. Telemetry sinus rhythm. Afebrile, wbc 17.3. Minimal serous drainage from pigtail catheter. Daily chest x-rays .Up to 1800 on incentive spirometer. Denies chest pain, palpitations or increased in shortness of breath. Objective - Vital Signs Vital signs: Vital Signs Temp 97.5 F L 12/27/17 15:00 Pulse 100 12/27/17 20:44 Resp 18 12/27/17 15:00 BP 130/80 12/27/17 15:00 Pulse Ox 95 12/27/17 15:00 Intake & Output 12/27/17 12/27/17 12/28/17 06:59 18:59 06:59 Intake Total 400 Output Total 710 30 950 Balance -310 -30 -950 Weight 88.3 kg Intake: Oral 400 Output: Drainage 10 30 Left Lateral Chest 10 30 Urine 700 950 Other: Voiding Method Bedside Commode Urinal - Exam PHYSICAL EXAM: VITAL SIGNS: As above GENERAL: Sitting up in bed, no acute distress HEENT: Conjunctivae normal. eyes normal. oral mucosa moist NECK: No JVD. No thyroid enlargement. No LNs CARDIOVASCULAR: S1, S2 muffled. No murmur. Mild tachycardia RESPIRATION: Breath sounds diminished in the bases. Scattered rhonchi and crackles. Fine expiratory wheezing scattered. Left pleural pigtail catheter present. ABDOMEN: Soft, nontender . No guarding. no masses palpable. Bowel sounds heard. LEGS: Trace edema. no swelling PSYCHIATRY: Alert and oriented -3, mood and affect normal. NERVOUS SYSTEM: Cranial N 2-12 grossly normal. Moves all 4 limbs. Diffuse weakness No focal deficits. Skin: no ulcer no rash Joints: No active swelling. No inflammation. Lymphatic system. No LN neck axilla or groin. MICROBIOLOGY 12/22/17 09:00 Blood Blood Culture - Preliminary No Growth after 96 hours 12/25/17 22:30 Urine,Clean Catch Urine Culture - Preliminary 12/24/17 14:51 Aspirate Gram Stain - Preliminary 12/24/17 14:51 Aspirate Body Fluid Culture - Preliminary 12/23/17 03:09 Blood Blood Culture - Preliminary No Growth after 72 hours - Labs CBC & Chem 7: 12/27/17 07:36 12/27/17 07:36 Labs: Abnormal Lab Results - Last 24 Hours (Table) 12/27/17 12/27/17 12/27/17 Range/Units 07:36 07:36 11:58 WBC 17.3 H (3.8-10.6) k/uL RBC 4.10 L (4.30-5.90) m/uL Hgb 11.8 L (13.0-17.5) gm/dL Hct 37.2 L (39.0-53.0) % Plt Count 565 H (150-450) k/uL Neutrophils # 14.5 H (1.3-7.7) k/uL BUN 27 H (9-20) mg/dL POC Glucose (mg/dL) 107 H (75-99) mg/dL 12/27/17 Range/Units 17:00 WBC (3.8-10.6) k/uL RBC (4.30-5.90) m/uL Hgb (13.0-17.5) gm/dL Hct (39.0-53.0) % Plt Count (150-450) k/uL Neutrophils # (1.3-7.7) k/uL BUN (9-20) mg/dL POC Glucose (mg/dL) 142 H (75-99) mg/dL Microbiology - Last 24 Hours (Table) 12/22/17 09:00 Blood Culture - Preliminary Blood No Growth after 120 hours 12/24/17 14:51 Gram Stain - Preliminary Aspirate Body Fluid Culture - Preliminary 12/25/17 22:30 Urine Culture - Final Urine,Clean Catch 12/23/17 03:09 Blood Culture - Preliminary Blood No Growth after 96 hours Assessment and Plan Assessment: 1. Shortness of breath, possibly multifactorial, acute COPD exacerbation, acute on chronic exacerbation CHF diastolic dysfunction, EF 50-55% 2. Moderate mitral regurgitation 3. Mild to moderate tricuspid regurgitation 4. Left-sided pleural effusion, loculated pleural effusion, status post pigtail catheter 5. Possible seroma with possible sepsis 6. 5.9 x 5.9 x 1.8 cm fluid collection along the pleura abdominal wall musculature 7. Hiatal hernia 8. History of left thoracotomy, closure of diaphragmatic hernia with patch and repair costochondral dislocation and subsequent lung herniation 9. Remote history of nicotine dependence. 10. Recent diagnosis of proximal atrial fibrillation, prior admission, not a candidate for anticoagulation as per cardiology. Plan: Continue on current medication regime ,monitoring and symptomatic treatment. Maintained in nebulized bronchodilators, steroids. Aggressive pulmonary toileting. Antibiotics as per infectious disease. Pigtail drainage continues, follow-up chest x-ray in a.m. , possible DC in a.m. as per cardiovascular surgery. GI and DVT prophylaxis in place. Discharge planning in progress for tomorrow for possible subacute rehab. The impression and plan of care has been dictated as directed. : I performed a history and examination of this patient, discussed the same with the dictator. I agree with the dictator's note ,documented as a scribe. Any additional findings or plans will be noted.
[2017-12-28 12:01] LABS: Glucose,Whole Blood 105 mg/dL (75-99)
[2017-12-28 12:04] LABS: Basophils # (A) 0.1 k/uL (0-0.2); Basophils % (A) 0 %; Eosinophils # (A) 0.3 k/uL (0-0.7); Eosinophils % (A) 2 %; HCT 36.6 % (39.0-53.0); HGB 11.8 gm/dL (13.0-17.5); Lymphocytes # (A) 0.3 k/uL (1.0-4.8); Lymphocytes % (A) 2 %; MCH 29.1 pg (25.0-35.0); MCHC 32.2 g/dL (31.0-37.0); MCV 90.4 fL (80.0-100.0); Monocytes # (A) 0.6 k/uL (0-1.0); Monocytes % (A) 4 %; Neutrophils % (A) 91 %; Platelet Count 560 k/uL (150-450); RBC 4.05 m/uL (4.30-5.90); RDW 13.7 % (11.5-15.5); WBC 15.4 k/uL (3.8-10.6)
[2017-12-28] MEDS ORDERED: LIDOCAINE 2% INJ 20 MG/ML SQ ONE (12:11)
[2017-12-28 12:21] LABS: Anion Gap 10 mmol/L; Blood Urea Nitrogen 22 mg/dL (9-20); Calcium 8.7 mg/dL (8.4-10.2); Carbon Dioxide 29 mmol/L (22-30); Chloride 98 mmol/L (98-107); Glucose 109 mg/dL (74-99); Potassium 3.9 mmol/L (3.5-5.1); Sodium 137 mmol/L (137-145)
--- NOTE | 2017-12-28 12:33 | P.PN ---
Subjective Progress Note Date: 12/28/17 Principal diagnosis: Left chest surgical site subcutaneous fluid collection, postoperative left- sided chest wall pain. Previous medical history of COPD, previous tobacco dependence, hypertension, hyperlipidemia, prostate disorder, Mnire's disease, hearing disorder. Status post left thoracotomy closure of diaphragmatic hernia with patch, repair of costochondral dislocation and subsequent lung herniation completed 11/22/2017. Recent diagnosis of paroxysmal atrial fibrillation last admission, placed on Lopressor which the patient stopped at home, not a candidate for anticoagulation per cardiology. POD #4 ultrasound-guided seroma drainage by interventional radiology Patient's currently sitting up to the bedside edge. He is in no acute distress. States his pain continues to be well controlled. His is at his bedside. Questions answered to the best of my ability. Teaching regarding patient's disease process reinforced with the patient and his . He is still complaining of frequent loose stools reports that he has had 3-4 loose stools in the last 24 hours. Patient's left chest drain remains in place draining a small amount of serous colored drainage. The plan was to discontinue the drain yesterday 12/27/2017 on the patient had 50 mL total out in 24 hour period. Objective - Vital Signs Vital signs: Vital Signs Temp 96.9 F L 12/28/17 07:00 Pulse 108 H 12/28/17 08:21 Resp 18 12/28/17 07:00 BP 134/91 12/28/17 07:00 Pulse Ox 94 L 12/28/17 10:37 Intake & Output 12/27/17 12/28/17 12/28/17 18:59 06:59 18:59 Intake Total 240 Output Total 30 1415 Balance -30 -1175 Weight 86.8 kg Intake: Oral 240 Output: Drainage 30 40 Left Lateral Chest 30 40 Urine 1375 Other: # Voids 1 - Constitutional General appearance: Present: cooperative, no acute distress - EENT ENT: Present: hard of hearing - Neck Details: No JVD, no lymphadenopathy, neck is supple. - Respiratory Details: Lung sounds with few scattered expiratory wheezes, diminished to his bilateral bases left greater than right. Respirations are symmetrical and nonlabored. Oxygen saturation are 94% on 3 L nasal cannula. He is achieving 1850 mL on his incentive spirometry. Left chest wall pigtail catheter secured in place draining thin serous drainage. 20 mL output in the last 8 hours. - Cardiovascular Details: Regular rhythm and rate. S1 and S2 present, negative for S3, gallop or murmur. Remote telemetry showing sinus tachycardia heart rate 110 with occasional PVCs. +1 edema to his bilateral lower extremities. - Gastrointestinal Gastrointestinal Comment(s): Abdomen soft, nontender and nondistended. Active bowel sounds all 4 abdominal quadrants. A bowel movement yesterday 12/27/2017. Tolerating oral intake. - Genitourinary Genitourinary Comment(s): Urine output adequate, clear gianni urine. 425 mL output in the last 8 hours. - Integumentary Integumentary Comment(s): Skin warm, dry and pink. Left thoracotomy incision healed. Pigtail catheter dressing clean dry and intact. - Neurologic Neurologic: Present: CNII-XII intact - Musculoskeletal Musculoskeletal: Present: gait normal, strength equal bilaterally - Psychiatric Psychiatric: Present: A&O x's 3, appropriate affect, intact judgment & insight - Allied health notes Allied health notes reviewed: nursing - Labs CBC & Chem 7: 12/28/17 11:34 12/27/17 07:36 Labs: Abnormal Lab Results - Last 24 Hours (Table) 12/27/17 12/28/17 12/28/17 Range/Units 17:00 11:34 11:54 WBC 15.4 H (3.8-10.6) k/uL RBC 4.05 L (4.30-5.90) m/uL Hgb 11.8 L (13.0-17.5) gm/dL Hct 36.6 L (39.0-53.0) % Plt Count 560 H (150-450) k/uL Neutrophils # 14.0 H (1.3-7.7) k/uL Lymphocytes # 0.3 L (1.0-4.8) k/uL POC Glucose (mg/dL) 142 H 105 H (75-99) mg/dL Microbiology - Last 24 Hours (Table) 12/22/17 09:00 Blood Culture - Final Blood No Growth after 144 hours 12/24/17 14:51 Gram Stain - Final Aspirate Body Fluid Culture - Final 12/23/17 03:09 Blood Culture - Preliminary Blood No Growth after 120 hours 12/25/17 22:30 Urine Culture - Final Urine,Clean Catch Assessment and Plan (1) Chest wall abscess Current Visit: Yes Status: Acute Code(s): L02.213 - CUTANEOUS ABSCESS OF CHEST WALL SNOMED Code(s): 73416170 (2) Diaphragmatic hernia Current Visit: No Status: Acute Code(s): K44.9 - DIAPHRAGMATIC HERNIA WITHOUT OBSTRUCTION OR GANGRENE SNOMED Code(s): 77038815 (3) Mnire's disease Current Visit: No Status: Chronic Code(s): H81.09 - MENIERE'S DISEASE, UNSPECIFIED EAR SNOMED Code(s): 27575269 (4) Paroxysmal atrial fibrillation Current Visit: Yes Status: Acute Code(s): I48.0 - PAROXYSMAL ATRIAL FIBRILLATION SNOMED Code(s): 694612724 (5) COPD (chronic obstructive pulmonary disease) Current Visit: Yes Status: Chronic Code(s): J44.9 - CHRONIC OBSTRUCTIVE PULMONARY DISEASE, UNSPECIFIED SNOMED Code(s): 52240426 (6) Hard of hearing Current Visit: Yes Status: Chronic Code(s): H91.90 - UNSPECIFIED HEARING LOSS, UNSPECIFIED EAR SNOMED Code(s): 66571671 (7) History of hernia repair Current Visit: No Status: Chronic Code(s): Z98.890 - OTHER SPECIFIED POSTPROCEDURAL STATES; Z87.19 - PERSONAL HISTORY OF OTHER DISEASES OF THE DIGESTIVE SYSTEM SNOMED Code(s): 46812544576070 (8) Hyperlipidemia Current Visit: No Status: Chronic Code(s): E78.5 - HYPERLIPIDEMIA, UNSPECIFIED SNOMED Code(s): 65218985 (9) Hypertension Current Visit: No Status: Chronic Code(s): I10 - ESSENTIAL (PRIMARY) HYPERTENSION SNOMED Code(s): 73453001 (10) Prostate disorder Current Visit: No Status: Chronic Code(s): N42.9 - DISORDER OF PROSTATE, UNSPECIFIED SNOMED Code(s): 72869214 Plan: 1. Pain control with ordered as needed medications. 2. Antibiotic management per infectious disease. Dr. Ovalles recommendations noted. 3. Continue pigtail drain today. 4. Wean O2 as tolerated. Encourage incentive spirometry use 10 times every hour. 5. GI/DVT prophylaxis. 6. Will monitor daily chest x-rays. 7. Arrhythmia management per cardiology. 8. Bronchodilators, steroids per pulmonology. Dr. Moss recommendations. 9. Continue to reinforce disease management teaching with patient and . 10. Increase activity as tolerated, physical therapy following. 11. More recommendations to follow as patient progresses in his care. Time with Patient: Greater than 30
--- NOTE | 2017-12-28 13:02 | IR ---
PICC LINE PLACEMENT: HISTORY: Infection requiring long-term antibiotic therapy PROCEDURE: Ultrasound and fluoroscopic guidance of PICC line placement. COMPLICATIONS: None ANESTHESIA: 1. 1% Lidocaine locally. FINDINGS/TECHNIQUE: The procedure was explained to the patient. The risks, complications, benefits and alternatives were discussed and any questions were answered. Informed consent was obtained. The patient was placed supine on the fluoroscopic table and prepped and draped in the usual sterile formerly [facility] ion. Utilizing a 21 gauge needle and sonographic and fluoroscopic guidance, access in the vein was achieved and there is placement of a 0.018 guidewire. The vein is patent. A 4-F sheath was placed o laith the guidewire. The guidewire and dilator were removed and a 4-F. PICC line was placed through th e sheath with the tip at the level of the SVC. The sheath was removed, the catheter was flushed and sutured into position. The patient was stable throughout the procedure and remained stable upon disc harge from the Department of Radiology. The vein puncture was patent under ultrasound. A gary scale image was obtained to document patency of the vein punctured. All elements of the maximal barrier technique were utilized. FLUOROSCOPY TIME: 0.2 minute, one image submitted IMPRESSION: Successful PICC line placement under ultrasound and fluoroscopic guidance.
[2017-12-28] MEDS: MULTIVITAMINS, THERA 1 EACH TAB PO SCH (13:36)
--- NOTE | 2017-12-28 15:24 | P.PN ---
Subjective Progress Note Date: 12/28/17 Principal diagnosis: Left-sided severe pleuritic chest pain, loculated left pleural effusion with the severe,/abscess formation into the soft tissues, service, intermittent hypertension, severe COPD, perforated left diaphragm with fracture of costochondral junction status post repair of diaphragmatic and dislocation, generalized anxiety disorder, paroxysmal atrial fibrillation 12/28/2017, patient seen eval examined during the rounds he continued to have issues associated with shortness of breath he has not been using oxygen on a regular basis, patient has +1 edema in the lower extremities also has some crackles on examination care plan discussed with the present at bedside as patient time spent over 35 minutes x-ray findings has been reviewed patient is still have some discharge and drainage to the PITA drain 20 mL has been noted accumulated since morning, severity of chest pain has improved to the patient denies any significant chest pain but does have intermittent episodes of severe overwhelming anxiety cultures reviewed, laboratory data reviewed as well leukocytosis appears to be settling down as down to 15,000 from over 17,000 steroids has been lowered down to once daily about 48 hours ago but patient is slowly retrograde more symptomatic we'll go up on Solu-Medrol 40 every 12 continue Lasix every 12 as well, patient has been advised to increase activity as tolerated 12/27/2017, patient seen eval examined during the rounds is present at bedside patient does have mild degree or shortness of breath activity and exertion however cuff congestion and sputum production has improved significantly pain is improved where he did not require morphine he has not been using oxygen regularly given that the he has some dryness in the nose humidification has been admitted, patient is being planned for long-term IV antibiotics which will be provided likely an extended care facility patient will be discharged from here and we'll go to [facility] for couple of weeks to finish therapy patient has a drainage catheter by interventional radiology third day about 40 mL has been obtained today, over 72 hours no growth in the Gram stain and culture has been noted from the drainage, chest x-ray performed earlier this morning reviewed chest tube was stable with interstitial disease and a small residual fluid predominantly on the left side 12/26/2017, patient seen eval examined during the rounds the he continued to have issues associated with shortness of breath however noted that patient was without oxygen I applied the oxygen back with that he feels better, he still have for left-sided thoracic wall pain continued to require 3-4 times morphine, care plan discussed with thoracic surgery plan is to monitor observe as no significant output has been noted bulging in the intercostal ribs however appears to be slightly diminished and less tender, right heme edema at the incision size is stable no significant worsening has been seen so far culture continued to be negative no new growth has been noted, labs reviewed medications reviewed white cell count is 17,000 with a rise in WBC count we'll continue to taper down the steroids 12/25/2017, patient seen eval reexamined during the rounds he is sitting upright on the bed breathing comfortably severity of pain is better he gets short of breath on activity and exertion currently is on 4 L oxygen, patient underwent CT-guided pleural drainage catheter placement by interventional radiology about 100 mL of serous sanguinous fluid has been removed final ID and cultures are pending preliminary Gram stain revealed absence of organism however many white cells are seen, blood cultures 2 so far has been negative, labs reviewed medications reviewed we'll continue breathing treatment however start tapering down the steroids care plan discussed with the patient and at length patient may very well require home IV antibiotics via PICC line 12/24/2017, patient seen eval examined care plan discussed with the cardiovascular service and primary service, respiratory status overall stable and improved but still have significant pain requiring morphine every 6 hour cardiothoracic surgery is following the recommended for CT-guided or ultrasound- guided drainage by interventional radiology 12/23/2017, patient seen eval reexamined noted patient has slight fluid overload required IV Lasix continued to be on breathing treatments continue require pain medication seems to be controlling the severity of pain patient has been eval by cardiothoracic surgery furthermore definitely would intervention are being discussed Mr. Cheatham is a 72-year-old male well-known to me patient has a history of end- stage lung disease second to severe COPD emphysema patient has been doing relatively well since discharged recently after bilateral pneumonia treatment however started having recurrence of pain about 2 days ago patient was seen in the office yesterday his pain was minimal at that time he couldn't tolerate the [employer] due to his the confusion and apneic episode he had some crackles present at the bases otherwise hemodynamic status was stable patient had at that time noted to have on outpatient setting low blood pressure however they did resolve after discontinuation of Lopressor patient was stable throughout the day however and of the day in the evening started having chest pain predominantly on the left side and dental pain becomes 10 out of 10 in addition subsequently patient started developing shortness of breath he started coughing with very thick tenacious yellowish-green mucus sputum and developed shortness of breath he was brought into the emergency department he was found to be did require a small bolus of crystalloid with with normal saline with the stabilization of blood pressure patient has been admitted into the hospital I've discussed with the emergency department service to consult Dr. Avila as the chest x-ray performed today revealed density on the left side has progressed in size from 4 cm to 7 cm in addition to that I will ask them to obtain a computed tomography scan of the chest which can be done without contrast. Patient is well-known to me he has been hospitalized and later part of September for acute COPD exacerbation and early October he was found to have a perforated left diaphragm which was repaired by Dr. Avila patient subsequently was rehospitalized 2 times with pneumonia at bases was eventually discharged in stable condition after extensive IV antibiotics patient was evaluated by infectious disease services Dr. Ovalles at that time as well recommended patient to be treated with Augmentin on outpatient basis Objective - Vital Signs Vital signs: Vital Signs Temp 96.9 F L 12/28/17 07:00 Pulse 96 12/28/17 12:40 Resp 18 12/28/17 08:00 BP 134/91 12/28/17 07:00 Pulse Ox 94 L 12/28/17 10:37 Intake & Output 12/27/17 12/28/17 12/28/17 18:59 06:59 18:59 Intake Total 240 Output Total 30 1415 Balance -30 -1175 Weight 86.8 kg 86.8 kg Intake: Oral 240 Output: Drainage 30 40 Left Lateral Chest 30 40 Urine 1375 Other: Voiding Method Toilet Urinal # Voids 1 - Exam This is a well-developed well-nourished awake alert oriented 3 male Limitations: no limitations General appearance: alert, in no apparent distress Head exam: Present: atraumatic, normocephalic, normal inspection Eye exam: Present: normal appearance, PERRL, EOMI. Absent: scleral icterus, conjunctival injection, periorbital swelling ENT exam: Present: mucous membranes dry Neck exam: Present: normal inspection. Absent: tenderness, meningismus, lymphadenopathy Respiratory exam: Present: Bilateral basal few rales noted with overall improved air entry, no wheezing are present, chest wall tenderness, noted mild chest wall tenderness on the left the incision site appears to be intact no definite wound dehiscence mild some localized erythema noted without any significant discharge, respiratory distress, wheezes, rhonchi, stridor noted, overall exam not much change compared to yesterday, pleural drainage catheter is present connected with PITA drain, bilateral crackles noted predominantly at the bases and inspiratory Cardiovascular Exam: Present: regular rate, normal rhythm, normal heart sounds. Absent: systolic murmur, diastolic murmur, rubs, gallop, clicks GI/Abdominal exam: Present: soft, normal bowel sounds. Absent: distended, tenderness, guarding, rebound, rigid, bruit, pulsatile mass, hernia Rectal exam: Present: deferred Extremities exam: Present: normal inspection, full ROM, normal capillary refill. Trace edema noted bilaterally pretibial Absent: tenderness, pedal edema , joint swelling, calf tenderness Back exam: Present: normal inspection Neurological exam: Present: alert, oriented X3, CN II-XII intact Psychiatric exam: Present: normal affect, normal mood Skin exam: Present: warm, dry, intact, normal color. Absent: rash - Labs CBC & Chem 7: 12/28/17 11:34 12/28/17 11:34 Labs: Abnormal Lab Results - Last 24 Hours (Table) 12/27/17 12/28/17 12/28/17 Range/Units 17:00 11:34 11:34 WBC 15.4 H (3.8-10.6) k/uL RBC 4.05 L (4.30-5.90) m/uL Hgb 11.8 L (13.0-17.5) gm/dL Hct 36.6 L (39.0-53.0) % Plt Count 560 H (150-450) k/uL Neutrophils # 14.0 H (1.3-7.7) k/uL Lymphocytes # 0.3 L (1.0-4.8) k/uL BUN 22 H (9-20) mg/dL Glucose 109 H (74-99) mg/dL POC Glucose (mg/dL) 142 H (75-99) mg/dL 12/28/17 Range/Units 11:54 WBC (3.8-10.6) k/uL RBC (4.30-5.90) m/uL Hgb (13.0-17.5) gm/dL Hct (39.0-53.0) % Plt Count (150-450) k/uL Neutrophils # (1.3-7.7) k/uL Lymphocytes # (1.0-4.8) k/uL BUN (9-20) mg/dL Glucose (74-99) mg/dL POC Glucose (mg/dL) 105 H (75-99) mg/dL Microbiology - Last 24 Hours (Table) 12/22/17 09:00 Blood Culture - Final Blood No Growth after 144 hours 12/24/17 14:51 Gram Stain - Final Aspirate Body Fluid Culture - Final 12/23/17 03:09 Blood Culture - Preliminary Blood No Growth after 120 hours 12/25/17 22:30 Urine Culture - Final Urine,Clean Catch Assessment and Plan Assessment: Leukocytosis likely related chronic inflammatory processes as well as steroids, improvement was noted when start tapering it down, but patient because more symptomatic will go back to every 12 Acute on chronic hypoxic respirator failure on 4 L oxygen, but patient has not been using oxygen regularly advised for it also advised to continue deep breathing sense incentive spirometry Left-sided severe postoperative pleuritic chest pain Left thoracic wall seroma/abscess Left-sided loculated pleural effusion appearing as a lung mass which is pleural based Low-grade Sirs early sepsis cannot be excluded with the presentation with hypotension did respond with crystalloids Severe COPD Recent perforated left diaphragm with fracture of costochondral junction requiring repair Hypertension hypertensive cardiovascular disease Generalized anxiety disorder History of paroxysmal atrial fibrillation couldn't tolerate Lopressor cardiology has evaluated him in the past not considered to be a candidate for anticoagulation Plan: Continue bronchodilators, continue Solu-Medrol, continue Pain control Continue antibiotics with ID service has been following Pending further intervention as per thoracic surgery A computed tomography scan of the chest reviewed Continue home medications including breathing treatments maintain patient on DVT and peptic ulcer disease prophylaxis increase activity as tolerated further recommendations pending plan of care as per clinical response of the patient Follow-up on culture results and report Plan of care as noted above further recommendations pending Time with Patient: Greater than 30
[2017-12-28 17:20] LABS: Glucose,Whole Blood 127 mg/dL (75-99)
--- NOTE | 2017-12-28 17:48 | P.PN ---
Subjective Progress Note Date: 12/28/17 Personal being dictated for Dr. Avendano. Interval history: This 72-year-old gentleman admitted with shortness of breath, left pleural effusion, seroma, status post ultrasound-guided insertion of left pleural pigtail catheter per seroma drainage by interventional radiology and multiple other medical issues. Chest x-ray reporting similar findings to prior exam with minimal residual pleural fluid, interstitial lung disease. Around pigtail catheter site , 5 cm area of swelling present. Discussed further with cardiovascular surgery with no further drainage planned. Shortness of breath improving. Denies chest pain, palpitations. Afebrile. Review of systems: CONSTITUTIONAL: No fever, generalized weakness HEENT: No recent visual problems or hearing problems. Denied any sore throat. CARDIOVASCULAR: No chest pain, no palpitations, no syncope. PULMONARY: Improving shortness of breath, no cough, no hemoptysis. Left-sided thoracic/chest wall pain-less tender. GASTROINTESTINAL: No diarrhea, no nausea, no vomiting, no abdominal pain. Normoactive bowel sounds. NEUROLOGICAL: No headaches, no weakness, no numbness. HEMATOLOGICAL: Denies any bleeding or petechiae. GENITOURINARY: Denies any burning micturition, frequency, or urgency. MUSCULOSKELETAL/RHEUMATOLOGICAL: Denies any joint pain, swelling, or any muscle pain. ENDOCRINE: Denies any polyuria or polydipsia. The rest of the 14 point review of systems is negative Active Medications Acetaminophen (Tylenol Tab) 650 mg PO Q6HR PRN PRN Reason: Fever and/ or MILD Pain Last Admin: 12/23/17 23:49 Dose: 650 mg Hydrocodone Bitart/Acetaminophen ([place] 10) 1 each PO QID PRN PRN Reason: moderate Pain Last Admin: 12/26/17 06:37 Dose: 1 each Albuterol/Ipratropium (Duoneb 0.5 Mg-3 Mg/3 Ml Soln) 3 ml INHALATION RT-QID LEANDRO Last Admin: 12/26/17 15:34 Dose: 3 ml Alprazolam (Xanax) 0.25 mg PO TID PRN PRN Reason: Anxiety Last Admin: 12/26/17 16:11 Dose: 0.25 mg Aspirin (Aspirin) 81 mg PO DAILY LEANDRO Last Admin: 12/26/17 09:10 Dose: 81 mg Atorvastatin Calcium (Lipitor) 20 mg PO HS [facility] Last Admin: 12/25/17 20:56 Dose: 20 mg Benzonatate (Tessalon Perles) 200 mg PO TID [facility] Last Admin: 12/26/17 16:08 Dose: 200 mg Budesonide (Pulmicort) 0.5 mg INHALATION RT-BID [facility] Last Admin: 12/26/17 07:41 Dose: 0.5 mg Finasteride (Proscar) 5 mg PO [facility] Last Admin: 12/25/17 20:56 Dose: 5 mg Furosemide (Lasix) 40 mg IV BID@0600,1800 [facility] Last Admin: 12/26/17 16:08 Dose: 40 mg Heparin Sodium (Porcine) (Heparin) 5,000 unit SQ Q8HR [facility] Last Admin: 12/26/17 16:08 Dose: 5,000 unit Meropenem 1 gm/ Sodium (Chloride) 100 mls @ 100 mls/hr IVPB Q8HR [facility] Last Admin: 12/26/17 16:08 Dose: 100 mls/hr Vancomycin HCl 1,500 mg/ (Sodium Chloride) 250 mls @ 125 mls/hr IVPB Q12H [facility] Last Admin: 12/26/17 09:10 Dose: 125 mls/hr Insulin Aspart (Novolog) 0 unit SQ ACHS [facility] PRN Reason: Protocol Last Admin: 12/26/17 17:36 Dose: Not Given Lisinopril (Zestril) 5 mg PO DAILY [facility] Last Admin: 12/26/17 09:10 Dose: 5 mg Meclizine HCl (Antivert) 25 mg PO DAILY [facility] Last Admin: 12/26/17 09:10 Dose: 25 mg Melatonin (Melatonin) 5 mg PO [facility] Last Admin: 12/25/17 20:56 Dose: 5 mg Methylprednisolone Sodium Succinate (Solu-Medrol) 40 mg IV Q12HR [facility] Last Admin: 12/26/17 09:10 Dose: 40 mg Metoprolol Tartrate (Lopressor) 25 mg PO BID [facility] Last Admin: 12/26/17 09:10 Dose: 25 mg Miscellaneous Information (Rx Info: Iv Contrast Was Given) 1 each MISCELLANE DAILY PRN PRN Reason: Per Protocol Stop: 12/26/17 20:24 Montelukast Sodium (Singulair) 10 mg PO [facility] Last Admin: 02/27/18 20:56 Dose: 10 mg Morphine Sulfate (Morphine Oral [place] 2mg/Ml) 12 mg PO Q4H PRN PRN Reason: Severe Pain Multivitamins (Theragran) 1 each PO DAILY@1200 [facility] Last Admin: 12/26/17 09:10 Dose: 1 each Naloxone HCl (Narcan) 0.2 mg IV Q2M PRN PRN Reason: Opioid Reversal Pantoprazole Sodium (Protonix) 40 mg PO DAILY [facility] Last Admin: 12/26/17 09:10 Dose: 40 mg Senna/Docusate Sodium (Senokot-S) 1 each PO BID [facility] Last Admin: 12/26/17 07:28 Dose: Not Given Tamsulosin HCl (Flomax) 0.4 mg PO HS [facility] Last Admin: 12/25/17 20:56 Dose: 0.4 mg 12/27/2017 breathing continues to improve. Chest wall pain better controlled. Telemetry sinus rhythm. Afebrile, wbc 17.3. Minimal serous drainage from pigtail catheter. Daily chest x-rays .Up to 1800 on incentive spirometer. Denies chest pain, palpitations or increased in shortness of breath. 12/28/17 breathing significantly improved, diffuse scattered expiratory wheezes , sitting up in chair. Pigtail catheter with minimal serous drainage. Telemetry sinus tachycardia with heart rates in the low one-teens.Staff reports no loose stools. Pain controlled. Afebrile, leukocytosis improving. Denies chest pain, palpitations. Objective - Vital Signs Vital signs: Vital Signs Temp 97.5 F L 12/28/17 15:00 Pulse 100 12/28/17 16:40 Resp 16 12/28/17 15:00 BP 115/78 12/28/17 15:00 Pulse Ox 94 L 12/28/17 15:00 Intake & Output 12/27/17 12/28/17 12/28/17 18:59 06:59 18:59 Intake Total 240 Output Total 30 1415 Balance -30 -1175 Weight 86.8 kg 86.8 kg Intake: Oral 240 Output: Drainage 30 40 Left Lateral Chest 30 40 Urine 1375 Other: Voiding Method Toilet Urinal # Voids 1 - Exam PHYSICAL EXAM: VITAL SIGNS: As above GENERAL: Sitting up in a chair, no acute distress HEENT: Conjunctivae normal. eyes normal. oral mucosa moist NECK: No JVD. No thyroid enlargement. No LNs CARDIOVASCULAR: S1, S2 muffled. No murmur. Mild tachycardia RESPIRATION: Breath sounds diminished in the bases. Scattered rhonchi and crackles. Fine expiratory wheezing scattered. Left pleural pigtail catheter present. ABDOMEN: Soft, nontender . No guarding. no masses palpable. Bowel sounds heard. LEGS: Positive edema( increased as patient sitting up in chair with legs down) PSYCHIATRY: Alert and oriented -3, mood and affect normal. NERVOUS SYSTEM: Cranial N 2-12 grossly normal. Moves all 4 limbs. Diffuse weakness No focal deficits. Skin: no ulcer no rash Joints: No active swelling. No inflammation. Lymphatic system. No LN neck axilla or groin. Microbiology 12/22/17 09:00 Blood Blood Culture - Final No Growth after 144 hours 12/24/17 14:51 Aspirate Gram Stain - Final 12/24/17 14:51 Aspirate Body Fluid Culture - Final 12/23/17 03:09 Blood Blood Culture - Preliminary No Growth after 120 hours 12/25/17 22:30 Urine,Clean Catch Urine Culture - Final - Labs CBC & Chem 7: 12/28/17 11:34 12/28/17 11:34 Labs: Abnormal Lab Results - Last 24 Hours (Table) 12/28/17 12/28/17 12/28/17 Range/Units 11:34 11:34 11:54 WBC 15.4 H (3.8-10.6) k/uL RBC 4.05 L (4.30-5.90) m/uL Hgb 11.8 L (13.0-17.5) gm/dL Hct 36.6 L (39.0-53.0) % Plt Count 560 H (150-450) k/uL Neutrophils # 14.0 H (1.3-7.7) k/uL Lymphocytes # 0.3 L (1.0-4.8) k/uL BUN 22 H (9-20) mg/dL Glucose 109 H (74-99) mg/dL POC Glucose (mg/dL) 105 H (75-99) mg/dL 12/28/17 Range/Units 17:16 WBC (3.8-10.6) k/uL RBC (4.30-5.90) m/uL Hgb (13.0-17.5) gm/dL Hct (39.0-53.0) % Plt Count (150-450) k/uL Neutrophils # (1.3-7.7) k/uL Lymphocytes # (1.0-4.8) k/uL BUN (9-20) mg/dL Glucose (74-99) mg/dL POC Glucose (mg/dL) 127 H (75-99) mg/dL Microbiology - Last 24 Hours (Table) 12/22/17 09:00 Blood Culture - Final Blood No Growth after 144 hours 12/24/17 14:51 Gram Stain - Final Aspirate Body Fluid Culture - Final 12/23/17 03:09 Blood Culture - Preliminary Blood No Growth after 120 hours Assessment and Plan Assessment: 1. Shortness of breath, possibly multifactorial, acute COPD exacerbation, acute on chronic exacerbation CHF diastolic dysfunction, EF 50-55% 2. Moderate mitral regurgitation 3. Mild to moderate tricuspid regurgitation 4. Left-sided pleural effusion, loculated pleural effusion, status post pigtail catheter 5. Possible seroma with possible sepsis 6. 5.9 x 5.9 x 1.8 cm fluid collection along the pleura abdominal wall musculature 7. Hiatal hernia 8. History of left thoracotomy, closure of diaphragmatic hernia with patch and repair costochondral dislocation and subsequent lung herniation 9. Remote history of nicotine dependence. 10. Recent diagnosis of proximal atrial fibrillation, prior admission, not a candidate for anticoagulation as per cardiology. Plan: Continue on current medication regime ,monitoring and symptomatic treatment. Continues on antibiotics as per infectious disease. Maintain elevation of legs. Continue on nebulized bronchodilators, steroids. Aggressive pulmonary toileting. Pigtail drainage continues, follow-up chest x-ray in a.m. GI and DVT prophylaxis in place. Discharge planning in progress for subacute rehab. Pending clearance from cardiology vascular thoracic surgery. The impression and plan of care has been dictated as directed. : I performed a history and examination of this patient, discussed the same with the dictator. I agree with the dictator's note ,documented as a scribe. Any additional findings or plans will be noted.
[2017-12-28 19:08] LABS: ALT 60 U/L (21-72); AST 49 U/L (17-59); Albumin 3.2 g/dL (3.5-5.0); Alkaline Phosphatase 73 U/L (38-126); Anion Gap 11 mmol/L; Blood Urea Nitrogen 21 mg/dL (9-20); Calcium 8.8 mg/dL (8.4-10.2); Carbon Dioxide 26 mmol/L (22-30); Chloride 99 mmol/L (98-107); Glucose 153 mg/dL (74-99); Potassium 4.2 mmol/L (3.5-5.1); Sodium 136 mmol/L (137-145); Total Bilirubin 0.7 mg/dL (0.2-1.3); Total Protein 6.4 g/dL (6.3-8.2)
[2017-12-28 20:54] LABS: Glucose,Whole Blood 192 mg/dL (75-99)
[2017-12-28] MEDS: TAMSULOSIN 0.4 MG CAP.ER.24H PO SCH (21:26)
[2017-12-28] MEDS: ATORVASTATIN 20 MG TAB PO SCH (21:26)
[2017-12-28] MEDS: FINASTERIDE 5 MG TAB PO SCH (21:26)
[2017-12-28] MEDS: MONTELUKAST 10 MG TAB PO SCH (21:26)
[2017-12-28] MEDS: MELATONIN 5 MG TABLET PO SCH (21:26)
--- NOTE | 2017-12-28 21:58 | P.PN ---
Subjective Progress Note Date: 12/28/17 Principal diagnosis: Shortness of breath Pleasant 72-year-old male presents to Hospital for significant and ongoing pain. This pleasant gentleman relates that in early October he was having significant difficulty with severe cough related to COPD and underlying infection. His related that he coughed so hard he caused a costochondral dislocation as well as a left diaphragmatic rupture with herniation. He was evaluated by Dr. Avila to cardiothoracic surgery was taken to the operating room where a thoracotomy was performed for appear of the diaphragm with mesh as well as repair of the costochondral dislocation. Postoperatively the patient was doing relatively well and was sent home on 11/26/2017. In home setting was doing relatively well. Over significant difficulties was more cough his pain became uncontrolled presented back to the emergency center and was admitted earlier in November. The patient again improved and has been home recovering further but then again developed severe pain to the left chest. Follow-up computed tomography scan has been performed in the emergency center and there is a significant increase in the amount of fluid that is outside of the pleural space into the tissue of the chest. This appears to be causing him severe pain he subsequently is admitted. Infectious disease consult for antibiotic therapy. 12/23/2017 the patient continues to feel poorly. He is quite short of breath and continues to have pain into his chest. I discussed the case with the nurse practitioner of the thoracic surgeon, the patient also may recurrence of some atrial fibrillation and is having some regularity at this time is having some increasing shortness of breath. Cardiology was requested to see him again. Patient's family is distinctly unhappy that the patient is having difficulties with multiple hospitalizations, they were unpleasant to this provider and although I was trying to provide some information admitted very clear that I am not the cardiac thoracic surgeon and I'm only a platform consultant trying to work to help him feel better. 12/24/2017 reveals the patient feeling considerably better today. The percutaneous drainage has occurred which has allowed an immediate reduction in his pain and discomfort and shortness of breath is much improved. He is considerably happier today than yesterday. His is also much more content seen at the patient is feeling better. 12/25/2017 patient continues to feel better. He is actually without pain for the first time in many days. His shortness of breath is improved but still has poor exercise tolerance with activity. He however is very pleased with his improvement. 12/27/2017 reveals the patient be feeling considerably better today than yesterday. He is up and moving without severe shortness of breath. Chest pain is resolved. Having a much better today and he has since his admission. Patient and 's questions are answered to the best of debility. Questions about catheter removal are related to the cardiothoracic surgeon. 12/28/2017 patient has a mild waxing and waning course with bouts of discomfort to his chest and some shortness of breath followed by improvements. Currently improving has been able to walk the hallway without profound shortness of breath. Pain is well controlled. Being followed by the cardiothoracic surgeon. Objective - Vital Signs Vital signs: Vital Signs Temp 97.5 F L 12/28/17 15:00 Pulse 98 12/28/17 20:34 Resp 16 12/28/17 15:00 BP 115/78 12/28/17 15:00 Pulse Ox 94 L 12/28/17 15:00 Intake & Output 12/28/17 12/28/17 12/29/17 06:59 18:59 06:59 Intake Total 240 Output Total 1415 920 600 Balance -1175 -920 -600 Weight 86.8 kg 86.8 kg Intake: Oral 240 Output: Drainage 40 20 Left Lateral Chest 40 20 Urine 1375 900 600 Other: Voiding Method Urinal # Voids 1 3 - Exam Pleasant 72-year-old gentleman who relates he is much more comfortable now than 24 hours ago. HEENT: Anicteric conjunctiva are pink and moist nasal mucosa grossly intact without significant lesions, there is no thrush. Neck: The neck is supple without significant lymphadenopathy or thyromegaly. Lungs: They're symmetrical air entry there are crackles at the left base but no britney bronchial sounds no dullness or egophony. Is able to take good deep breaths with only minimal discomfort and does not have significant coughing with a deep breath. The percutaneous drain is in place and only a scant amount of a thin serosanguineous material is noted. Heart: Irregular with an audible S1 and S2 without S4. There is no significant murmur click or rub, PMI was nondisplaced. Abdomen: Positive bowel sounds soft and nontender without palpable masses or organomegaly. There was no guarding or rebound. Extremities: The upper extremities have excellent pulses they are symmetric, no significant petechiae or telangiectasia. No splinter hemorrhages were noted. The lower extremities are free from significant edema. The peripheral pulses were 2+ and symmetric. Neuro: Awake alert oriented to person place and time. There are no acute new gross focal sensory motor deficits. Surgical wound to the left chest in the thoracotomy position is well-healed however erythema persists dressing is in place for the percutaneous drainage - Labs CBC & Chem 7: 12/28/17 11:34 12/28/17 18:50 Labs: Abnormal Lab Results - Last 24 Hours (Table) 12/28/17 12/28/17 12/28/17 Range/Units 11:34 11:34 11:54 WBC 15.4 H (3.8-10.6) k/uL RBC 4.05 L (4.30-5.90) m/uL Hgb 11.8 L (13.0-17.5) gm/dL Hct 36.6 L (39.0-53.0) % Plt Count 560 H (150-450) k/uL Neutrophils # 14.0 H (1.3-7.7) k/uL Lymphocytes # 0.3 L (1.0-4.8) k/uL Sodium (137-145) mmol/L BUN 22 H (9-20) mg/dL Glucose 109 H (74-99) mg/dL POC Glucose (mg/dL) 105 H (75-99) mg/dL Albumin (3.5-5.0) g/dL 12/28/17 12/28/17 12/28/17 Range/Units 17:16 18:50 20:53 WBC (3.8-10.6) k/uL RBC (4.30-5.90) m/uL Hgb (13.0-17.5) gm/dL Hct (39.0-53.0) % Plt Count (150-450) k/uL Neutrophils # (1.3-7.7) k/uL Lymphocytes # (1.0-4.8) k/uL Sodium 136 L (137-145) mmol/L BUN 21 H (9-20) mg/dL Glucose 153 H (74-99) mg/dL POC Glucose (mg/dL) 127 H 192 H (75-99) mg/dL Albumin 3.2 L (3.5-5.0) g/dL Microbiology - Last 24 Hours (Table) 12/22/17 09:00 Blood Culture - Final Blood No Growth after 144 hours 12/24/17 14:51 Gram Stain - Final Aspirate Body Fluid Culture - Final 12/23/17 03:09 Blood Culture - Preliminary Blood No Growth after 120 hours Laboratory Results WBC 15.4 k/uL (3.8-10.6) H 12/28/17 11:34 RBC 4.05 m/uL (4.30-5.90) L 12/28/17 11:34 Hgb 11.8 gm/dL (13.0-17.5) L 12/28/17 11:34 Hct 36.6 % (39.0-53.0) L 12/28/17 11:34 MCV 90.4 fL (80.0-100.0) 12/28/17 11:34 MCH 29.1 pg (25.0-35.0) 12/28/17 11:34 MCHC 32.2 g/dL (31.0-37.0) 12/28/17 11:34 RDW 13.7 % (11.5-15.5) 12/28/17 11:34 Plt Count 560 k/uL (150-450) H 12/28/17 11:34 Neutrophils % 91 % 12/28/17 11:34 Lymphocytes % 2 % 12/28/17 11:34 Monocytes % 4 % 12/28/17 11:34 Eosinophils % 2 % 12/28/17 11:34 Basophils % 0 % 12/28/17 11:34 Neutrophils # 14.0 k/uL (1.3-7.7) H 12/28/17 11:34 Lymphocytes # 0.3 k/uL (1.0-4.8) L 12/28/17 11:34 Monocytes # 0.6 k/uL (0-1.0) 12/28/17 11:34 Eosinophils # 0.3 k/uL (0-0.7) 12/28/17 11:34 Basophils # 0.1 k/uL (0-0.2) 12/28/17 11:34 Hypochromasia Slight 12/24/17 05:29 PT 10.2 sec (9.0-12.0) 12/22/17 09:00 INR 1.0 (<1.2) 12/22/17 09:00 APTT 23.3 sec (22.0-30.0) 12/22/17 09:00 Sodium 136 mmol/L (137-145) L 12/28/17 18:50 Potassium 4.2 mmol/L (3.5-5.1) 12/28/17 18:50 Chloride 99 mmol/L (98-107) 12/28/17 18:50 Carbon Dioxide 26 mmol/L (22-30) 12/28/17 18:50 Anion Gap 11 mmol/L 12/28/17 18:50 BUN 21 mg/dL (9-20) H 12/28/17 18:50 Creatinine 0.70 mg/dL (0.66-1.25) 12/28/17 18:50 Est GFR (MDRD) Af Amer >60 (>60 ml/min/1.73 sqM) 12/28/17 18:50 Est GFR (MDRD) Non-Af >60 (>60 ml/min/1.73 sqM) 12/28/17 18:50 Glucose 153 mg/dL (74-99) H 12/28/17 18:50 POC Glucose (mg/dL) 192 mg/dL (75-99) H 12/28/17 20:53 POC Glu Assembly Worker ID Lanette Sanchez 12/28/17 20:[address] Glu mg/dL 123 12/24/17 05:29 Hemoglobin A1c 5.9 % (4.0-6.0) 12/24/17 05:29 Plasma Lactic Acid Geo 0.9 mmol/L (0.7-2.0) 12/23/17 03:09 Calcium 8.8 mg/dL (8.4-10.2) 12/28/17 18:50 Magnesium 2.0 mg/dL (1.6-2.3) 12/22/17 09:00 Total Bilirubin 0.7 mg/dL (0.2-1.3) 12/28/17 18:50 AST 49 U/L (17-59) 12/28/17 18:50 ALT 60 U/L (21-72) 12/28/17 18:50 Alkaline Phosphatase 73 U/L (38-126) 12/28/17 18:50 Total Creatine Kinase 39 U/L (55-170) L 12/22/17 09:00 CK-MB (CK-2) 1.4 ng/mL (0.0-2.4) 12/22/17 09:00 CK-MB (CK-2) Rel Index 3.6 12/22/17 09:00 Troponin I 0.197 ng/mL (0.000-0.034) H* 12/24/17 05:29 NT-Pro-B Natriuret Pep 2350 pg/mL 12/23/17 18:05 Total Protein 6.4 g/dL (6.3-8.2) 12/28/17 18:50 Albumin 3.2 g/dL (3.5-5.0) L 12/28/17 18:50 Urine Color Light Yellow 12/28/17 06:40 Urine Appearance Clear (Clear) 12/28/17 06:40 Urine pH 7.0 (5.0-8.0) 12/28/17 06:40 Ur Specific Decker 1.007 (1.001-1.035) 12/28/17 06:40 Urine Protein Negative (Negative) 12/28/17 06:40 Urine Glucose (UA) Negative (Negative) 12/28/17 06:40 Urine Ketones Negative (Negative) 12/28/17 06:40 Urine Blood Negative (Negative) 12/28/17 06:40 Urine Nitrite Negative (Negative) 12/28/17 06:40 Urine Bilirubin Negative (Negative) 12/28/17 06:40 Urine Urobilinogen <2.0 mg/dL (<2.0) 12/28/17 06:40 Ur Leukocyte Esterase Negative (Negative) 12/28/17 06:40 Vancomycin Trough 13.9 ug/mL 12/25/17 08:13 Influenza Type A RNA Not Detected (Not Detectd) 12/22/17 09:00 Influenza Type B (PCR) Not Detected (Not Detectd) 12/22/17 09:00 Microbiology 12/22/17 09:00 Blood Blood Culture - Final No Growth after 144 hours 12/24/17 14:51 Aspirate Gram Stain - Final 12/24/17 14:51 Aspirate Body Fluid Culture - Final 12/23/17 03:09 Blood Blood Culture - Preliminary No Growth after 120 hours 12/25/17 22:30 Urine,Clean Catch Urine Culture - Final Assessment and Plan (1) Diaphragmatic hernia Current Visit: No Status: Acute Code(s): K44.9 - DIAPHRAGMATIC HERNIA WITHOUT OBSTRUCTION OR GANGRENE SNOMED Code(s): 33502793 (2) Pleural effusion Current Visit: No Status: Acute Code(s): J90 - PLEURAL EFFUSION, NOT ELSEWHERE CLASSIFIED SNOMED Code(s): 90055994 (3) COPD (chronic obstructive pulmonary disease) Current Visit: Yes Status: Chronic Code(s): J44.9 - CHRONIC OBSTRUCTIVE PULMONARY DISEASE, UNSPECIFIED SNOMED Code(s): 07485870 (4) Chest wall abscess Narrative/Plan: 72-year-old male presents to Hospital with a marked increase of pain to his left chest. This is quite similar to what he's been suffering from in the recent past. It is noted he started with a diaphragmatic rupture requiring thoracic surgical repair. Since then he's been having some difficulties with the current infection at that site. He was actually doing relatively well over the last many days until he had the sudden onset of severe pain and left chest making it hard to breathe every breath was extremely painful because he presented to the emergency center. Fortunately with narcotic therapies he is feeling better at this time. We will initiate antibiotic therapy at this time vancomycin and meropenem will be utilized because he's having some fever. The cardiac thoracic surgical team has been consulted and we await their input as far as her plan. The patient is significant increase the amount of fluid into the soft tissue of the chest wall. An very concerned that this is abscess given the erythema tenderness pain and fever that he is suffering from. Cultures are pending. If the site is incised and drained certainly deep cultures will be helpful to further direct ongoing antibiotic therapy. Pain control currently is adequate. Continue his respiratory treatments and oxygen therapy. She has importance of adequate protein intake for his healing. Multivitamin is ensured. 12/23/2017 cultures are in process at this point in time. Continue intravenous antibiotic therapy. Have asked for cardiology consultation with concerns to recurrent her intermittent atrial fibrillation. Have discussed the case with current thoracic surgery and hopefully will proceed to surgical intervention in the near future. 12/24/2017 reveals the patient to be considerably improved now that he has had the percutaneous drainage of the fluid collection to the left anterior chest wall catheter appears site of his ruptured diaphragmatic hernia. The patient is definitely improved today and is much more content. Cardiology has seen him in the area utilizing aspirin therapy at this time they have not been able to replicate any further atrial fibrillation. He was monitored closely by cardiology in the outpatient setting. Cardiothoracic surgery was also monitored to ensure that he has a good result with percutaneous drainage. They will follow with recurrent scans to ensure that it is improving. As to antibiotic therapy cultures from the percutaneous drainage for further help direct but likely will utilize outpatient intravenous antibiotic therapy with vancomycin. 12/25/2017 reveals the patient to have even further improvement in that he's having no pain after his percutaneous drainage. The best that he has felt since October. We'll continue to work toward outpatient intravenous antibiotic therapy with vancomycin at his discharge. No evidence of any further cardiac dysrhythmia. 12/27/2017 reveals the patient to be having a very good day today. He's not having much pain or discomfort. Shortness of breath is minimal. No fevers or chills. Energy levels improving. Eating well. We'll plan vancomycin and ertapenem to complete his outpatient course of intravenous antibiotic therapy. 12/28/2017 patient has had some waxing and waning course. At times not feeling as well today as he did yesterday. He over is showing overall marked improvement with ability to ambulate in the halls. We'll continue supplemental oxygen. We'll plan antibiotic therapy with vancomycin and ertapenem. Current Visit: Yes Status: Acute Code(s): L02.213 - CUTANEOUS ABSCESS OF CHEST WALL SNOMED Code(s): 44999791
[2017-12-28] MEDS: ESCITALOPRAM 10 MG TAB PO SCH (22:22)
[2017-12-29] MEDS: HEPARIN SODIUM,PORCINE 5,000 UNIT/ML 1 ML VIAL SQ SCH ×4 (00:21→23:31)
[2017-12-29] MEDS: MEROPENEM 1 GM in SODIUM CHLORIDE 0.9% 100 ML IVPB SCH ×4 (00:21→23:29)
[2017-12-29] MEDS: FUROSEMIDE 10 MG/ML 4 ML VIAL IV SCH ×2 (06:34→17:19)
[2017-12-29 07:09] LABS: Glucose,Whole Blood 121 mg/dL (75-99)
[2017-12-29] MEDS: IPRATROPIUM-ALBUTEROL 3 ML NEB INHALATION SCH ×4 (07:22→18:55)
[2017-12-29] MEDS: BUDESONIDE 0.5 MG/2 ML NEBU INHALATION SCH ×2 (07:22→18:55)
[2017-12-29 07:55] LABS: Anion Gap 11 mmol/L; Basophils % (A) 0 %; Blood Urea Nitrogen 21 mg/dL (9-20); Calcium 9.1 mg/dL (8.4-10.2); Carbon Dioxide 32 mmol/L (22-30); Chloride 94 mmol/L (98-107); Eosinophils # (A) 0.1 k/uL (0-0.7); Eosinophils % (A) 0 %; Glucose 132 mg/dL (74-99); HCT 41.1 % (39.0-53.0); Lymphocytes # (A) 0.8 k/uL (1.0-4.8); Lymphocytes % (A) 6 %; MCH 29.2 pg (25.0-35.0); MCHC 31.5 g/dL (31.0-37.0); MCV 92.7 fL (80.0-100.0); Mean Platelet Volume 6.9; Monocytes # (A) 0.4 k/uL (0-1.0); Monocytes % (A) 3 %; Neutrophils # (A) 11.2 k/uL (1.3-7.7); Neutrophils % (A) 89 %; Platelet Count 605 k/uL (150-450); Potassium 3.9 mmol/L (3.5-5.1); RBC 4.43 m/uL (4.30-5.90); RDW 13.6 % (11.5-15.5); Sodium 137 mmol/L (137-145); WBC 12.6 k/uL (3.8-10.6)
[2017-12-29] MEDS: INSULIN ASPART 100 UNIT/ML 1 ML 10 ML VIAL SQ SCH ×4 (07:56→21:08)
[2017-12-29] MEDS: methylPREDNISolone SOD SUCCI 40 MG/ML 1 ML VIAL IV SCH ×2 (07:59→21:29)
[2017-12-29] MEDS ORDERED: VANCOMYCIN TROUGH DUE 1 EACH MISC MISCELLANE ONE (08:00)
[2017-12-29] MEDS: ASPIRIN 81 MG PO SCH (08:02)
[2017-12-29] MEDS: METOPROLOL TARTRATE 25 MG TAB PO SCH ×2 (08:02→21:04)
[2017-12-29] MEDS: MECLIZINE 25 MG TAB PO SCH (08:02)
[2017-12-29] MEDS: LISINOPRIL 5 MG TAB PO SCH (08:02)
[2017-12-29] MEDS: SENNOSIDES-DOCUSATE SODIUM 1 EACH TAB PO SCH ×2 (08:03→21:29)
[2017-12-29] MEDS: BENZONATATE 100 MG CAP PO SCH ×3 (08:03→21:04)
[2017-12-29] MEDS: PANTOPRAZOLE 40 MG TABLET PO SCH (08:03)
[2017-12-29] MEDS: VANCOMYCIN 1,500 MG in SODIUM CHLORIDE 0.9% 250 ML IVPB SCH (10:05)
--- NOTE | 2017-12-29 10:40 | XR ---
EXAMINATION TYPE: XR chest 2V DATE OF EXAM: 12/29/2017 COMPARISON: 12/27/2017 INDICATION: Crackles, short of breath TECHNIQUE: Frontal and lateral views of the chest are obtained. FINDINGS: The heart size is normal. The pulmonary vasculature is normal. Minimal infiltrate is within the right middle lobe and within the lingula. Correlate for atelectasis. There is some silhouetting of the heart borders.. IMPRESSION: 1. Minimal infiltrate in the lingula possibly right middle lobe. Correlate for atelectasis
[2017-12-29 12:33] LABS: Glucose,Whole Blood 160 mg/dL (75-99)
[2017-12-29] MEDS: MULTIVITAMINS, THERA 1 EACH TAB PO SCH (12:38)
--- NOTE | 2017-12-29 14:37 | P.PN ---
Subjective Progress Note Date: 12/29/17 Principal diagnosis: Left chest surgical site subcutaneous fluid collection, postoperative left- sided chest pain. Previous medical history of COPD, previous tobacco dependence , hypertension, hyperlipidemia, prostate disorder, Mnire's disease, hearing disorder. Status post left thoracotomy closure of diaphragmatic hernia with patch, repair of costochondral dislocation and subsequent lung herniation completed 11/22/2017. Recent diagnosis of paroxysmal atrial fibrillation last admission, placed on Lopressor which the patient stopped at home, not a candidate for anticoagulation per cardiology. POD #5 ultrasound-guided seroma drainage by interventional radiology with placement of pigtail catheter Patient was found to be ambulating in the hallway with his in no acute distress. Denies any pain at all. Still feels short of breath at times. Objective - Vital Signs Vital signs: Vital Signs Temp 96.9 F L 12/29/17 06:51 Pulse 90 12/29/17 13:13 Resp 16 12/29/17 06:51 BP 148/84 12/29/17 06:51 Pulse Ox 97 12/29/17 07:22 Intake & Output 12/28/17 12/29/17 12/29/17 18:59 06:59 18:59 Output Total 920 1205 Balance -920 -1205 Weight 86.8 kg 86.5 kg Output: Drainage 20 5 Left Lateral Chest 20 5 Urine 900 1200 Other: Voiding Method Urinal Urinal # Voids 1 3 - Constitutional General appearance: Present: cooperative, no acute distress - Respiratory Details: Lungs sounds clear bilaterally. Respirations even, nonlabored. Currently on 3 L nasal cannula with oxygen saturation 97%. Able to achieve 1400 mL on his incentive spirometry. - Cardiovascular Details: S1, S2 present. Regular rate and rhythm, sinus rhythm on telemetry. Palpable peripheral pulses bilaterally. Bilateral lower extremity edema still present. No calf pain or tenderness noted. - Gastrointestinal Gastrointestinal Comment(s): Abdomen soft, nontender, nondistended. Active bowel sounds 4 quadrants. Tolerating diet. - Genitourinary Genitourinary Comment(s): Continues to void clear, yellow urine. - Integumentary Integumentary Comment(s): Skin is warm and dry with evidence of good perfusion. Pigtail drain present to left posterior chest with minimal serous drainage. - Neurologic Neurologic: Present: CNII-XII intact - Musculoskeletal Musculoskeletal: Present: gait normal, strength equal bilaterally - Psychiatric Psychiatric: Present: A&O x's 3, appropriate affect, intact judgment & insight - Allied health notes Allied health notes reviewed: nursing - Labs CBC & Chem 7: 12/29/17 07:21 12/29/17 07:21 Labs: Abnormal Lab Results - Last 24 Hours (Table) 12/28/17 12/28/17 12/28/17 Range/Units 17:16 18:50 20:53 WBC (3.8-10.6) k/uL Plt Count (150-450) k/uL Neutrophils # (1.3-7.7) k/uL Lymphocytes # (1.0-4.8) k/uL Sodium 136 L (137-145) mmol/L Chloride (98-107) mmol/L Carbon Dioxide (22-30) mmol/L BUN 21 H (9-20) mg/dL Glucose 153 H (74-99) mg/dL POC Glucose (mg/dL) 127 H 192 H (75-99) mg/dL Albumin 3.2 L (3.5-5.0) g/dL 12/29/17 12/29/17 12/29/17 Range/Units 07:05 07:21 07:21 WBC 12.6 H (3.8-10.6) k/uL Plt Count 605 H (150-450) k/uL Neutrophils # 11.2 H (1.3-7.7) k/uL Lymphocytes # 0.8 L (1.0-4.8) k/uL Sodium (137-145) mmol/L Chloride 94 L (98-107) mmol/L Carbon Dioxide 32 H (22-30) mmol/L BUN 21 H (9-20) mg/dL Glucose 132 H (74-99) mg/dL POC Glucose (mg/dL) 121 H (75-99) mg/dL Albumin (3.5-5.0) g/dL 12/29/17 Range/Units 12:27 WBC (3.8-10.6) k/uL Plt Count (150-450) k/uL Neutrophils # (1.3-7.7) k/uL Lymphocytes # (1.0-4.8) k/uL Sodium (137-145) mmol/L Chloride (98-107) mmol/L Carbon Dioxide (22-30) mmol/L BUN (9-20) mg/dL Glucose (74-99) mg/dL POC Glucose (mg/dL) 160 H (75-99) mg/dL Albumin (3.5-5.0) g/dL Microbiology - Last 24 Hours (Table) 12/23/17 03:09 Blood Culture - Final Blood No Growth after 144 hours 12/22/17 09:00 Blood Culture - Final Blood No Growth after 144 hours 12/24/17 14:51 Gram Stain - Final Aspirate Body Fluid Culture - Final - Imaging and Cardiology Chest x-ray: report reviewed, image reviewed Assessment and Plan (1) Pleural mass Current Visit: Yes Status: Chronic Code(s): J94.9 - PLEURAL CONDITION, UNSPECIFIED SNOMED Code(s): 911135103 (2) Postoperative pain Current Visit: Yes Status: Chronic Code(s): G89.18 - OTHER ACUTE POSTPROCEDURAL PAIN SNOMED Code(s): 102502632 (3) Mnire's disease Current Visit: No Status: Chronic Code(s): H81.09 - MENIERE'S DISEASE, UNSPECIFIED EAR SNOMED Code(s): 33568628 (4) Paroxysmal atrial fibrillation Current Visit: Yes Status: Acute Code(s): I48.0 - PAROXYSMAL ATRIAL FIBRILLATION SNOMED Code(s): 715251616 (5) COPD (chronic obstructive pulmonary disease) Current Visit: Yes Status: Chronic Code(s): J44.9 - CHRONIC OBSTRUCTIVE PULMONARY DISEASE, UNSPECIFIED SNOMED Code(s): 28177970 (6) Hard of hearing Current Visit: Yes Status: Chronic Code(s): H91.90 - UNSPECIFIED HEARING LOSS, UNSPECIFIED EAR SNOMED Code(s): 64561689 (7) Hyperlipidemia Current Visit: No Status: Chronic Code(s): E78.5 - HYPERLIPIDEMIA, UNSPECIFIED SNOMED Code(s): 54325026 (8) Hypertension Current Visit: No Status: Chronic Code(s): I10 - ESSENTIAL (PRIMARY) HYPERTENSION SNOMED Code(s): 75434571 (9) Prostate disorder Current Visit: No Status: Chronic Code(s): N42.9 - DISORDER OF PROSTATE, UNSPECIFIED SNOMED Code(s): 47909154 Plan: 1. Pain control with ordered medications. 2. Antibiotic management per infectious disease. 3. Continue pigtail drain. Will monitor output. To be discontinued when no drainage is present by interventional radiology. 4. Wean O2 as tolerated.Encourage incentive spirometry use 10 times every hour. 5. GI/DVT prophylaxis. 6. Will monitor x-rays. 7. Heart rhythm management per cardiology. 8. Bronchodilators, steroids per pulmonology. 9. Continue to reinforce disease management teaching with patient and . 10. More recommendations to follow. Time with Patient: Greater than 30
[2017-12-29 17:35] LABS: Glucose,Whole Blood 172 mg/dL (75-99)
--- NOTE | 2017-12-29 18:07 | P.PN ---
Subjective Progress Note Date: 12/29/17 Principal diagnosis: Left-sided severe pleuritic chest pain, loculated left pleural effusion with the severe,/abscess formation into the soft tissues, service, intermittent hypertension, severe COPD, perforated left diaphragm with fracture of costochondral junction status post repair of diaphragmatic and dislocation, generalized anxiety disorder, paroxysmal atrial fibrillation 12/29/2017, patient seen and evaluated examined during the rounds clinically slightly better breathing cuff congestion and left-sided chest wall pain has improved patient is still have pleural drainage catheter present about 20 mL of the serous fluid has accumulated in the back since yesterday left-sided chest pain is better under control compared to prior exam swelling in the lower extremity has improved however is still present patient has been ambulating has been using it more regularly oxygen continued do deep breathing exercise incentive spirometry, chest x-ray from today reviewed and compared with the prior x-ray some infiltrate in the right middle lobe as well as the left basilar area cannot be excluded with atelectasis, labs reviewed white cell count is down to 12,600 from 15,400, hemoglobin remained stable with stable labs of BUN/creatinine chemistry sugars slightly on the higher side, medications reviewed 12/28/2017, patient seen eval examined during the rounds he continued to have issues associated with shortness of breath he has not been using oxygen on a regular basis, patient has +1 edema in the lower extremities also has some crackles on examination care plan discussed with the present at bedside as patient time spent over 35 minutes x-ray findings has been reviewed patient is still have some discharge and drainage to the PITA drain 20 mL has been noted accumulated since morning, severity of chest pain has improved to the patient denies any significant chest pain but does have intermittent episodes of severe overwhelming anxiety cultures reviewed, laboratory data reviewed as well leukocytosis appears to be settling down as down to 15,000 from over 17,000 steroids has been lowered down to once daily about 48 hours ago but patient is slowly retrograde more symptomatic we'll go up on Solu-Medrol 40 every 12 continue Lasix every 12 as well, patient has been advised to increase activity as tolerated 12/27/2017, patient seen eval examined during the rounds is present at bedside patient does have mild degree or shortness of breath activity and exertion however cuff congestion and sputum production has improved significantly pain is improved where he did not require morphine he has not been using oxygen regularly given that the he has some dryness in the nose humidification has been admitted, patient is being planned for long-term IV antibiotics which will be provided likely an extended care facility patient will be discharged from here and we'll go to [facility] for couple of weeks to finish therapy patient has a drainage catheter by interventional radiology third day about 40 mL has been obtained today, over 72 hours no growth in the Gram stain and culture has been noted from the drainage, chest x-ray performed earlier this morning reviewed chest tube was stable with interstitial disease and a small residual fluid predominantly on the left side 12/26/2017, patient seen eval examined during the rounds the he continued to have issues associated with shortness of breath however noted that patient was without oxygen I applied the oxygen back with that he feels better, he still have for left-sided thoracic wall pain continued to require 3-4 times morphine, care plan discussed with thoracic surgery plan is to monitor observe as no significant output has been noted bulging in the intercostal ribs however appears to be slightly diminished and less tender, right heme edema at the incision size is stable no significant worsening has been seen so far culture continued to be negative no new growth has been noted, labs reviewed medications reviewed white cell count is 17,000 with a rise in WBC count we'll continue to taper down the steroids 12/25/2017, patient seen eval reexamined during the rounds he is sitting upright on the bed breathing comfortably severity of pain is better he gets short of breath on activity and exertion currently is on 4 L oxygen, patient underwent CT-guided pleural drainage catheter placement by interventional radiology about 100 mL of serous sanguinous fluid has been removed final ID and cultures are pending preliminary Gram stain revealed absence of organism however many white cells are seen, blood cultures 2 so far has been negative, labs reviewed medications reviewed we'll continue breathing treatment however start tapering down the steroids care plan discussed with the patient and at length patient may very well require home IV antibiotics via PICC line 12/24/2017, patient seen eval examined care plan discussed with the cardiovascular service and primary service, respiratory status overall stable and improved but still have significant pain requiring morphine every 6 hour cardiothoracic surgery is following the recommended for CT-guided or ultrasound- guided drainage by interventional radiology 12/23/2017, patient seen eval reexamined noted patient has slight fluid overload required IV Lasix continued to be on breathing treatments continue require pain medication seems to be controlling the severity of pain patient has been eval by cardiothoracic surgery furthermore definitely would intervention are being discussed Mr. Cheatham is a 72-year-old male well-known to me patient has a history of end- stage lung disease second to severe COPD emphysema patient has been doing relatively well since discharged recently after bilateral pneumonia treatment however started having recurrence of pain about 2 days ago patient was seen in the office yesterday his pain was minimal at that time he couldn't tolerate the Jerome due to his the confusion and apneic episode he had some crackles present at the bases otherwise hemodynamic status was stable patient had at that time noted to have on outpatient setting low blood pressure however they did resolve after discontinuation of Lopressor patient was stable throughout the day however and of the day in the evening started having chest pain predominantly on the left side and dental pain becomes 10 out of 10 in addition subsequently patient started developing shortness of breath he started coughing with very thick tenacious yellowish-green mucus sputum and developed shortness of breath he was brought into the emergency department he was found to be did require a small bolus of crystalloid with with normal saline with the stabilization of blood pressure patient has been admitted into the hospital I've discussed with the emergency department service to consult Dr. Avila as the chest x-ray performed today revealed density on the left side has progressed in size from 4 cm to 7 cm in addition to that I will ask them to obtain a computed tomography scan of the chest which can be done without contrast. Patient is well-known to me he has been hospitalized and later part of September for acute COPD exacerbation and early October he was found to have a perforated left diaphragm which was repaired by Dr. Avila patient subsequently was rehospitalized 2 times with pneumonia at [facility] was eventually discharged in stable condition after extensive IV antibiotics patient was evaluated by infectious disease services Dr. Ovalles at that time as well recommended patient to be treated with Augmentin on outpatient basis Objective - Vital Signs Vital signs: Vital Signs Temp 96.6 F L 12/29/17 15:00 Pulse 87 12/29/17 15:00 Resp 18 12/29/17 15:00 BP 126/81 12/29/17 15:00 Pulse Ox 94 L 12/29/17 15:00 Intake & Output 12/28/17 12/29/17 12/29/17 18:59 06:59 18:59 Intake Total 720 Output Total 920 1205 Balance -920 -1205 720 Weight 86.8 kg 86.5 kg Intake: Oral 720 Output: Drainage 20 5 Left Lateral Chest 20 5 Urine 900 1200 Other: Voiding Method Urinal Urinal # Voids 1 3 - Exam This is a well-developed well-nourished awake alert oriented 3 male Limitations: no limitations General appearance: alert, in no apparent distress, appeared to be in better spirits today Head exam: Present: atraumatic, normocephalic, normal inspection Eye exam: Present: normal appearance, PERRL, EOMI. Absent: scleral icterus, conjunctival injection, periorbital swelling ENT exam: Present: mucous membranes dry Neck exam: Present: normal inspection. Absent: tenderness, meningismus, lymphadenopathy Respiratory exam: Present: Bilateral basal few rales noted with overall improved air entry, no wheezing are present, chest wall tenderness, noted mild chest wall tenderness on the left the incision site appears to be intact no definite wound dehiscence mild some localized erythema noted without any significant discharge, respiratory distress, wheezes, rhonchi, stridor noted, overall exam not much change compared to yesterday, pleural drainage catheter is present connected with PITA drain, bilateral crackles noted predominantly at the bases and inspiratory Cardiovascular Exam: Present: regular rate, normal rhythm, normal heart sounds. Absent: systolic murmur, diastolic murmur, rubs, gallop, clicks GI/Abdominal exam: Present: soft, normal bowel sounds. Absent: distended, tenderness, guarding, rebound, rigid, bruit, pulsatile mass, hernia Rectal exam: Present: deferred Extremities exam: Present: normal inspection, full ROM, normal capillary refill. Trace edema noted bilaterally pretibial Absent: tenderness, pedal edema , joint swelling, calf tenderness Back exam: Present: normal inspection Neurological exam: Present: alert, oriented X3, CN II-XII intact Psychiatric exam: Present: normal affect, normal mood Skin exam: Present: warm, dry, intact, normal color. Absent: rash - Labs CBC & Chem 7: 12/29/17 07:21 12/29/17 07:21 Labs: Abnormal Lab Results - Last 24 Hours (Table) 12/28/17 12/28/17 12/29/17 Range/Units 18:50 20:53 07:05 WBC (3.8-10.6) k/uL Plt Count (150-450) k/uL Neutrophils # (1.3-7.7) k/uL Lymphocytes # (1.0-4.8) k/uL Sodium 136 L (137-145) mmol/L Chloride (98-107) mmol/L Carbon Dioxide (22-30) mmol/L BUN 21 H (9-20) mg/dL Glucose 153 H (74-99) mg/dL POC Glucose (mg/dL) 192 H 121 H (75-99) mg/dL Albumin 3.2 L (3.5-5.0) g/dL 12/29/17 12/29/17 12/29/17 Range/Units 07:21 07:21 12:27 WBC 12.6 H (3.8-10.6) k/uL Plt Count 605 H (150-450) k/uL Neutrophils # 11.2 H (1.3-7.7) k/uL Lymphocytes # 0.8 L (1.0-4.8) k/uL Sodium (137-145) mmol/L Chloride 94 L (98-107) mmol/L Carbon Dioxide 32 H (22-30) mmol/L BUN 21 H (9-20) mg/dL Glucose 132 H (74-99) mg/dL POC Glucose (mg/dL) 160 H (75-99) mg/dL Albumin (3.5-5.0) g/dL 12/29/17 Range/Units 17:32 WBC (3.8-10.6) k/uL Plt Count (150-450) k/uL Neutrophils # (1.3-7.7) k/uL Lymphocytes # (1.0-4.8) k/uL Sodium (137-145) mmol/L Chloride (98-107) mmol/L Carbon Dioxide (22-30) mmol/L BUN (9-20) mg/dL Glucose (74-99) mg/dL POC Glucose (mg/dL) 172 H (75-99) mg/dL Albumin (3.5-5.0) g/dL Microbiology - Last 24 Hours (Table) 12/23/17 03:09 Blood Culture - Final Blood No Growth after 144 hours Assessment and Plan Assessment: Leukocytosis likely related chronic inflammatory processes as well as steroids, improvement was noted when start tapering it down, but patient because more symptomatic will maintain to every 12 Acute on chronic hypoxic respirator failure on 2-4 L oxygen, but patient has been using oxygen regularly advised for it to continue deep breathing sense incentive spirometry Left-sided severe postoperative pleuritic chest pain Left thoracic wall seroma/abscess Left-sided loculated pleural effusion appearing as a lung mass which is pleural based Low-grade Sirs early sepsis cannot be excluded with the presentation with hypotension did respond with crystalloids Severe COPD Recent perforated left diaphragm with fracture of costochondral junction requiring repair Hypertension hypertensive cardiovascular disease Generalized anxiety disorder History of paroxysmal atrial fibrillation couldn't tolerate Lopressor cardiology has evaluated him in the past not considered to be a candidate for anticoagulation Plan: Continue bronchodilators, continue Solu-Medrol, continue Pain control Continue antibiotics with ID service has been following Pending further intervention as per thoracic surgery A computed tomography scan of the chest reviewed Continue home medications including breathing treatments maintain patient on DVT and peptic ulcer disease prophylaxis increase activity as tolerated further recommendations pending plan of care as per clinical response of the patient Follow-up on culture results and report Plan of care as noted above further recommendations pending Time with Patient: Greater than 30
[2017-12-29 20:51] LABS: Glucose,Whole Blood 191 mg/dL (75-99)
[2017-12-29] MEDS: MELATONIN 5 MG TABLET PO SCH (21:04)
[2017-12-29] MEDS: MONTELUKAST 10 MG TAB PO SCH (21:04)
[2017-12-29] MEDS: TAMSULOSIN 0.4 MG CAP.ER.24H PO SCH (21:05)
[2017-12-29] MEDS: ESCITALOPRAM 10 MG TAB PO SCH (21:05)
[2017-12-29] MEDS: FINASTERIDE 5 MG TAB PO SCH (21:05)
[2017-12-29] MEDS: ATORVASTATIN 20 MG TAB PO SCH (21:05)
[2017-12-29] MEDS: VANCOMYCIN 1,250 MG in SODIUM CHLORIDE 0.9% 250 ML IVPB SCH (21:07)
[2017-12-29] MEDS: ALPRAZolam 0.25 MG TAB PO PRN (21:08)
--- NOTE | 2017-12-29 23:36 | PN ---
PROGRESS NOTE DATE OF SERVICE: 12/29/2017 This 72-year-old gentleman was admitted with shortness of breath which is multifactorial, also had COPD. The patient also had CHF acute exacerbation. Patient with moderate tricuspid regurgitation. The patient is being closely monitored. The patient is afebrile. The patient is postsurgical is improving. PHYSICAL EXAM: Alert and oriented x3. Pulse is 87, blood pressure 126/81, respirations 18, temperature 98.6, pulse ox 94% on room air. HEENT: Conjunctivae normal. NECK: No jugular venous distention. CARDIOVASCULAR: S1, S2 muffled. RESPIRATORY: Breath sounds diminished in the bases. A few scattered rhonchi and crackles. ABDOMEN: Soft, nontender. No mass palpable. LEGS: No edema. No swelling. NERVOUS SYSTEM: Higher functions as mentioned earlier. Moves all 4 limbs. No focal motor or sensory deficits. LAB STUDIES: WBC 12.6. Glucose 132, 160. ASSESSMENT: 1. Shortness of breath, possibly multifactorial, acute chronic obstructive pulmonary disease exacerbation, acute on chronic congestive heart failure exacerbation with acute on chronic diastolic dysfunction, ejection fraction 50%-55%. 2. Moderate mitral regurgitation. 3. Mild to moderate tricuspid regurgitation. 4. Left-sided pleural effusion, loculated pleural effusion, status post pigtail catheter. 5. Possible seroma and possible sepsis with 5.9 x 5.9 x 1.8-cm fluid collection in the abdominal wall musculature. 6. Hiatal hernia. 7. History of left thoracotomy closure of diaphragmatic hernia with a patch and repair of a costochondral dislocation and subsequently herniation. 8. Remote history of nicotine dependence. 9. History of recent diagnosis of paroxysmal atrial fibrillation prior to admission, not a candidate for repeatanticoagulation. RECOMMENDATIONS AND DISCUSSION: In this 72-year-old gentleman who presented with multiple complex medical issues , will monitor the patient closely, continue with the current medical management and symptomatic treatment. Continue with incentive spirometer and broad-spectrum IV antibiotics. Closely follow with consultants. Repeat labs. Prognosis guarded because of multiple complex medical issues. Further recommendations to follow. MMODL / IJN: [id number] / MTDD
[2017-12-30] MEDS: FUROSEMIDE 10 MG/ML 4 ML VIAL IV SCH ×2 (06:29→17:16)
[2017-12-30 07:50] LABS: Glucose,Whole Blood 104 mg/dL (75-99)
[2017-12-30] MEDS: MEROPENEM 1 GM in SODIUM CHLORIDE 0.9% 100 ML IVPB SCH ×2 (08:04→16:07)
[2017-12-30] MEDS: INSULIN ASPART 100 UNIT/ML 1 ML 10 ML VIAL SQ SCH ×4 (08:04→22:25)
[2017-12-30] MEDS: HEPARIN SODIUM,PORCINE 5,000 UNIT/ML 1 ML VIAL SQ SCH ×2 (08:04→16:07)
[2017-12-30] MEDS: BENZONATATE 100 MG CAP PO SCH ×3 (08:06→20:12)
[2017-12-30] MEDS: ASPIRIN 81 MG PO SCH (08:06)
[2017-12-30] MEDS: LISINOPRIL 5 MG TAB PO SCH (08:07)
[2017-12-30] MEDS: METOPROLOL TARTRATE 25 MG TAB PO SCH ×2 (08:07→20:14)
[2017-12-30] MEDS: methylPREDNISolone SOD SUCCI 40 MG/ML 1 ML VIAL IV SCH ×2 (08:07→20:15)
[2017-12-30] MEDS: PANTOPRAZOLE 40 MG TABLET PO SCH (08:07)
[2017-12-30] MEDS: MECLIZINE 25 MG TAB PO SCH (08:07)
[2017-12-30] MEDS: SENNOSIDES-DOCUSATE SODIUM 1 EACH TAB PO SCH ×2 (08:08→20:14)
[2017-12-30] MEDS: IPRATROPIUM-ALBUTEROL 3 ML NEB INHALATION SCH ×4 (08:54→20:51)
[2017-12-30] MEDS: BUDESONIDE 0.5 MG/2 ML NEBU INHALATION SCH ×2 (08:54→20:51)
[2017-12-30 09:21] LABS: Basophils % (A) 0 %; Eosinophils % (A) 0 %; HCT 41.4 % (39.0-53.0); HGB 12.8 gm/dL (13.0-17.5); Lymphocytes # (A) 0.8 k/uL (1.0-4.8); Lymphocytes % (A) 5 %; MCH 28.7 pg (25.0-35.0); MCHC 30.9 g/dL (31.0-37.0); MCV 92.9 fL (80.0-100.0); Mean Platelet Volume 7.1; Monocytes # (A) 0.7 k/uL (0-1.0); Monocytes % (A) 4 %; Neutrophils # (A) 14.6 k/uL (1.3-7.7); Neutrophils % (A) 89 %; Platelet Count 604 k/uL (150-450); RBC 4.46 m/uL (4.30-5.90); RDW 13.7 % (11.5-15.5); WBC 16.3 k/uL (3.8-10.6)
[2017-12-30 09:29] LABS: Anion Gap 12 mmol/L; Blood Urea Nitrogen 30 mg/dL (9-20); Calcium 9.2 mg/dL (8.4-10.2); Carbon Dioxide 28 mmol/L (22-30); Chloride 97 mmol/L (98-107); Glucose 138 mg/dL (74-99); Sodium 137 mmol/L (137-145)
[2017-12-30] MEDS: VANCOMYCIN 1,250 MG in SODIUM CHLORIDE 0.9% 250 ML IVPB SCH ×2 (10:26→20:11)
--- NOTE | 2017-12-30 11:27 | P.PN ---
Subjective Progress Note Date: 12/30/17 Principal diagnosis: Left chest surgical site subcutaneous fluid collection, postoperative left- sided chest pain. Previous medical history of COPD, previous tobacco dependence , hypertension, hyperlipidemia, prostate disorder, Mnire's disease, hearing disorder. Status post left thoracotomy closure of diaphragmatic hernia with patch, repair of costochondral dislocation and subsequent lung herniation completed 11/22/2017. Recent diagnosis of paroxysmal atrial fibrillation last admission, placed on Lopressor which the patient stopped at home, not a candidate for anticoagulation per cardiology. POD #6 ultrasound-guided seroma drainage by interventional radiology with placement of pigtail catheter Patient continues to progress, ambulating in the hallway with oxygen. Denies pain, states shortness of breath is getting better. Patient is anxious to have pigtail catheter removed, however is anxious to have him continue with it. Objective - Vital Signs Vital signs: Vital Signs Temp 96.8 F L 12/30/17 06:42 Pulse 83 12/30/17 09:10 Resp 12 12/30/17 06:42 BP 131/78 12/30/17 06:42 Pulse Ox 97 12/30/17 08:54 Intake & Output 12/29/17 12/30/17 12/30/17 18:59 06:59 18:59 Intake Total 720 320 Output Total 1100 20 Balance 720 -1100 300 Weight 86.5 kg Intake: Oral 720 320 Output: Drainage 0 20 Left Lateral Chest 0 20 Urine 1100 Other: Voiding Method Urinal - Constitutional General appearance: Present: cooperative, no acute distress - Respiratory Details: Lungs sounds clear bilaterally except course of the left base. Currently on 2 L nasal cannula with oxygen saturations 97%. Able to achieve 1500 mL on his incentive spirometry. Pigtail catheter present to posterior lateral chest wall , 20 mL serous drainage this morning. - Cardiovascular Details: S1, S2 present. Regular rate and rhythm, sinus rhythm on telemetry. Palpable peripheral pulses bilaterally. Bilateral lower extremity edema present. No calf pain or tenderness noted. - Gastrointestinal Gastrointestinal Comment(s): Abdomen soft, nontender, nondistended. Active bowel sounds 4 quadrants. Tolerating diet. - Genitourinary Genitourinary Comment(s): Continues to void clear, yellow urine. - Integumentary Integumentary Comment(s): Skin is warm and dry. Left lateral chest wall incision well approximated, well- healed. - Neurologic Neurologic: Present: CNII-XII intact - Musculoskeletal Musculoskeletal: Present: gait normal, strength equal bilaterally - Psychiatric Psychiatric: Present: A&O x's 3, appropriate affect, intact judgment & insight - Allied health notes Allied health notes reviewed: nursing - Labs CBC & Chem 7: 12/30/17 08:13 12/30/17 08:13 Labs: Abnormal Lab Results - Last 24 Hours (Table) 12/29/17 12/29/17 12/29/17 Range/Units 12:27 17:32 20:49 WBC (3.8-10.6) k/uL Hgb (13.0-17.5) gm/dL MCHC (31.0-37.0) g/dL Plt Count (150-450) k/uL Neutrophils # (1.3-7.7) k/uL Lymphocytes # (1.0-4.8) k/uL Chloride (98-107) mmol/L BUN (9-20) mg/dL Glucose (74-99) mg/dL POC Glucose (mg/dL) 160 H 172 H 191 H (75-99) mg/dL 12/30/17 12/30/17 12/30/17 Range/Units 07:28 08:13 08:13 WBC 16.3 H (3.8-10.6) k/uL Hgb 12.8 L (13.0-17.5) gm/dL MCHC 30.9 L (31.0-37.0) g/dL Plt Count 604 H (150-450) k/uL Neutrophils # 14.6 H (1.3-7.7) k/uL Lymphocytes # 0.8 L (1.0-4.8) k/uL Chloride 97 L (98-107) mmol/L BUN 30 H (9-20) mg/dL Glucose 138 H (74-99) mg/dL POC Glucose (mg/dL) 104 H (75-99) mg/dL Assessment and Plan (1) Pleural mass Current Visit: Yes Status: Chronic Code(s): J94.9 - PLEURAL CONDITION, UNSPECIFIED SNOMED Code(s): 271654466 (2) Postoperative pain Current Visit: Yes Status: Chronic Code(s): G89.18 - OTHER ACUTE POSTPROCEDURAL PAIN SNOMED Code(s): 674120919 (3) Mnire's disease Current Visit: No Status: Chronic Code(s): H81.09 - MENIERE'S DISEASE, UNSPECIFIED EAR SNOMED Code(s): 36570495 (4) Paroxysmal atrial fibrillation Current Visit: Yes Status: Acute Code(s): I48.0 - PAROXYSMAL ATRIAL FIBRILLATION SNOMED Code(s): 504745982 (5) COPD (chronic obstructive pulmonary disease) Current Visit: Yes Status: Chronic Code(s): J44.9 - CHRONIC OBSTRUCTIVE PULMONARY DISEASE, UNSPECIFIED SNOMED Code(s): 01657440 (6) Hard of hearing Current Visit: Yes Status: Chronic Code(s): H91.90 - UNSPECIFIED HEARING LOSS, UNSPECIFIED EAR SNOMED Code(s): 30476808 (7) Hyperlipidemia Current Visit: No Status: Chronic Code(s): E78.5 - HYPERLIPIDEMIA, UNSPECIFIED SNOMED Code(s): 73908364 (8) Hypertension Current Visit: No Status: Chronic Code(s): I10 - ESSENTIAL (PRIMARY) HYPERTENSION SNOMED Code(s): 38294655 (9) Prostate disorder Current Visit: No Status: Chronic Code(s): N42.9 - DISORDER OF PROSTATE, UNSPECIFIED SNOMED Code(s): 79757501 Plan: 1. Pain control with ordered medications. 2. Antibiotic management per infectious disease. 3. Continue pigtail drain. Will monitor output. To be discontinued when no drainage is present by interventional radiology. 4. Wean O2 as tolerated.Encourage incentive spirometry use 10 times every hour. 5. GI/DVT prophylaxis. 6. Will monitor x-rays. 7. Heart rhythm management per cardiology. 8. Bronchodilators, steroids per pulmonology. 9. Continue to reinforce disease management teaching with patient and . 10. More recommendations to follow. Time with Patient: Greater than 30
[2017-12-30] MEDS: MULTIVITAMINS, THERA 1 EACH TAB PO SCH (12:38)
[2017-12-30 12:55] LABS: Glucose,Whole Blood 119 mg/dL (75-99)
[2017-12-30 17:30] LABS: Glucose,Whole Blood 112 mg/dL (75-99)
--- NOTE | 2017-12-30 18:18 | PN ---
PROGRESS NOTE DATE OF SERVICE: 12/30/2017 This 72-year-old gentleman was admitted with shortness of breath, possibly multifactorial also had COPD acute exacerbation as well as acute on chronic congestive heart failure acute exacerbation with acute on chronic diastolic dysfunction, ejection fraction 50-55%. The patient also had moderate mitral regurgitation. The patient also had drain of the loculated pleural effusion on the left side. The patient had seroma around the chest wall also which not concerned at this point. No chest pain. No palpitations. No fever. PHYSICAL EXAM: Alert and oriented times three. Pulse is 89, blood pressure 117/72, respirations 22, temperature 97.1, pulse ox 97% on 2 L. HEENT: Conjunctivae normal. Neck: No jugular venous distention. Cardiovascular system: S1, S2 muffled. No S3, no S4. Respiratory: Breath sounds diminished in the bases. A few scattered rhonchi and crackles. Expiratory wheezing also present. ABDOMEN: Soft, nontender. No mass palpable. Legs: No edema and no swelling. NERVOUS SYSTEM: Higher functions as mentioned earlier. Moves all four limbs. No focal motor or sensory deficits. Lymphatics: No lymph nodes palpable in the neck, axillae or groin. Skin: No ulcer, rash or bleeding. LABS: WBC 16.2, hemoglobin 12.8, sodium 137, potassium 4, and glucose 138. ASSESSMENT: 1. Shortness of breath possible multifactorial with COPD acute exacerbation as well as acute on chronic congestive heart failure acute exacerbation with acute on chronic diastolic dysfunction, ejection fraction 50-55%. 2. Moderate mitral regurgitation. 3. Mild to moderate tricuspid regurgitation. 4. Left-sided pleural effusion, loculated, status post pigtail catheter. 5. Possible seroma with fluid collection in the abdominal wall musculature. 6. Hiatal hernia. 7. History of left thoracotomy closure of diaphragmatic hernia with patch repair with post and subsequent herniation. 8. Remote history of nicotine dependence. 9. History of recent diagnosis of paroxysmal atrial fibrillation prior to admission. Not candidate for repeat anticoagulation. RECOMMENDATIONS AND DISCUSSION: Recommend to continue current medications, management and symptomatic treatment. Incentive spirometry. Continue the bronchodilators. Continue the diuretics. Otherwise continue the pigtail catheter. Closely follow with cardiothoracic surgery. Further recommendations to follow. MMODL / IJN: [id number] / [facility]
[2017-12-30] MEDS: ATORVASTATIN 20 MG TAB PO SCH (20:12)
[2017-12-30] MEDS: MONTELUKAST 10 MG TAB PO SCH (20:13)
[2017-12-30] MEDS: FINASTERIDE 5 MG TAB PO SCH (20:13)
[2017-12-30] MEDS: ESCITALOPRAM 10 MG TAB PO SCH (20:13)
[2017-12-30] MEDS: MELATONIN 5 MG TABLET PO SCH (20:14)
[2017-12-30] MEDS: TAMSULOSIN 0.4 MG CAP.ER.24H PO SCH (20:14)
[2017-12-30 21:19] LABS: Glucose,Whole Blood 100 mg/dL (75-99)
[2017-12-30] MEDS: ALPRAZolam 0.25 MG TAB PO PRN (23:13)
[2017-12-31] MEDS: MEROPENEM 1 GM in SODIUM CHLORIDE 0.9% 100 ML IVPB SCH ×3 (00:25→14:49)
[2017-12-31] MEDS: HEPARIN SODIUM,PORCINE 5,000 UNIT/ML 1 ML VIAL SQ SCH ×3 (00:26→14:53)
[2017-12-31] MEDS: FUROSEMIDE 10 MG/ML 4 ML VIAL IV SCH (06:29)
[2017-12-31 07:16] VITALS: BP 137/95; RESP 18; TEMP 96.9
[2017-12-31] MEDS: ASPIRIN 81 MG PO SCH (07:34)
[2017-12-31] MEDS: PANTOPRAZOLE 40 MG TABLET PO SCH (07:34)
[2017-12-31] MEDS: BENZONATATE 100 MG CAP PO SCH ×2 (07:34→14:52)
[2017-12-31] MEDS: LISINOPRIL 5 MG TAB PO SCH (07:34)
[2017-12-31] MEDS: METOPROLOL TARTRATE 25 MG TAB PO SCH (07:34)
[2017-12-31] MEDS: MECLIZINE 25 MG TAB PO SCH (07:34)
[2017-12-31] MEDS: MULTIVITAMINS, THERA 1 EACH TAB PO SCH (07:34)
[2017-12-31] MEDS: methylPREDNISolone SOD SUCCI 40 MG/ML 1 ML VIAL IV SCH (07:34)
[2017-12-31] MEDS: IPRATROPIUM-ALBUTEROL 3 ML NEB INHALATION SCH ×3 (07:36→15:30)
[2017-12-31] MEDS: SENNOSIDES-DOCUSATE SODIUM 1 EACH TAB PO SCH (07:36)
[2017-12-31] MEDS: BUDESONIDE 0.5 MG/2 ML NEBU INHALATION SCH (07:36)
[2017-12-31] MEDS: INSULIN ASPART 100 UNIT/ML 1 ML 10 ML VIAL SQ SCH ×2 (07:41→12:33)
[2017-12-31 07:55] LABS: Glucose,Whole Blood 96 mg/dL (75-99)
[2017-12-31 09:02] LABS: Basophils % (A) 0 %; Eosinophils % (A) 0 %; HCT 42.3 % (39.0-53.0); HGB 12.9 gm/dL (13.0-17.5); Hypochromasia Slight; Lymphocytes # (A) 0.5 k/uL (1.0-4.8); Lymphocytes % (A) 3 %; MCH 29.1 pg (25.0-35.0); MCHC 30.5 g/dL (31.0-37.0); MCV 95.5 fL (80.0-100.0); Mean Platelet Volume 6.3; Monocytes # (A) 0.7 k/uL (0-1.0); Monocytes % (A) 4 %; Neutrophils # (A) 15.1 k/uL (1.3-7.7); Neutrophils % (A) 92 %; Platelet Count 580 k/uL (150-450); RBC 4.43 m/uL (4.30-5.90); RDW 13.7 % (11.5-15.5); WBC 16.4 k/uL (3.8-10.6)
[2017-12-31] MEDS: VANCOMYCIN 1,250 MG in SODIUM CHLORIDE 0.9% 250 ML IVPB SCH (09:14)
[2017-12-31 09:17] LABS: Anion Gap 10 mmol/L; Blood Urea Nitrogen 32 mg/dL (9-20); Calcium 8.9 mg/dL (8.4-10.2); Carbon Dioxide 26 mmol/L (22-30); Chloride 101 mmol/L (98-107); Glucose 117 mg/dL (74-99); Potassium 3.9 mmol/L (3.5-5.1); Sodium 137 mmol/L (137-145)
--- NOTE | 2017-12-31 10:27 | P.DS ---
Providers Date of admission: 12/22/17 11:03 Expected date of discharge: 12/31/17 Attending physician: MD Dr. Juan Alberto Celeste. Consults: 12/22/17 11:06 Consult Physician Routine Consulting Provider: Matt Moss Consult Reason/Comments: Pleural mass, postop pain Do you want consulting provider notified?: Yes 12/22/17 13:26 Consult Physician Routine Consulting Provider: Khoi Avila Consult Reason/Comments: Postop evaluation Do you want consulting provider notified?: Yes 12/22/17 14:26 Consult Physician Routine Consulting Provider: Herminio Ovalles Consult Reason/Comments: pneumonia Do you want consulting provider notified?: Yes 12/23/17 13:06 Consult Physician Urgent Consulting Provider: Daisy Massey Consult Reason/Comments: afib Do you want consulting provider notified?: Yes [facility]: Final Diagnoses: 1. Shortness of breath, possibly multifactorial, acute COPD exacerbation, acute on chronic exacerbation CHF diastolic dysfunction, EF 50-55% 2. Moderate mitral regurgitation 3. Mild to moderate tricuspid regurgitation 4. Left-sided pleural effusion, loculated pleural effusion, status post pigtail catheter 5. Possible seroma with possible sepsis 6. 5.9 x 5.9 x 1.8 cm fluid collection along the pleura abdominal wall musculature 7. Hiatal hernia 8. History of left thoracotomy, closure of diaphragmatic hernia with patch and repair costochondral dislocation and subsequent lung herniation 9. Remote history of nicotine dependence. 10. Recent diagnosis of proximal atrial fibrillation, prior admission, not a candidate for anticoagulation as per cardiology. Hospital course:This is a 72-year-old gentleman admitted with shortness of breath, acute COPD exacerbationleft pleural effusion,status post left thoracotomy diaphragmatic hernia with patch, repair of costochondral dislocation and subsequent lung herniation completed 11/22/2017, seroma and multiple other medical issues.Evaluated by multiple consults, cardiovascular surgery, pulmonary, infectious disease. Maintained on IV antibiotics. Status post ultrasound-guided insertion of left pleural pigtail catheter for seroma drainage by interventional radiology.Catheter to be discontinued by interventional radiology when no drainage is present as per cardiovascular surgery.Cleared by all consults for discharge. Patient is being discharged to [facility] in a stable condition with guarded prognosis. Physical Exam:VSS, alert and oriented 3, no acute distress.CV: Muffled S1 and S2,LUNGS: Bilateral bases diminished,ABD: Soft, nontender, positive bowel sounds. No focal deficits. Microbiology 12/23/17 03:09 Blood Blood Culture - Final No Growth after 144 hours 12/22/17 09:00 Blood Blood Culture - Final No Growth after 144 hours 12/24/17 14:51 Aspirate Gram Stain - Final 12/24/17 14:51 Aspirate Body Fluid Culture - Final 12/25/17 22:30 Urine,Clean Catch Urine Culture - Final The impression and plan of care has been dictated as directed. : I performed a history and examination of this patient, discussed the same with the dictator. I agree with the dictator's note ,documented as a scribe. Any additional findings or plans will be noted. Time taken: 35 minutes Patient Condition at Discharge: Stable Plan - Discharge Summary Discharge Rx Participant: Yes New Discharge Prescriptions: New Ertapenem [INVanz] 1 gm IVPB Q24H #12 bag Vancomycin 1,500 mg IVPB Q12H #24 vial Acetaminophen Tab [Tylenol] 650 mg PO Q6HR PRN tab PRN Reason: Fever and/ or MILD Pain ALPRAZolam [Xanax] 0.25 mg PO TID PRN #20 tab PRN Reason: Anxiety Aspirin 81 mg PO DAILY chew Escitalopram [Lexapro] 10 mg PO HS tab INSULIN LISPRO (HumaLOG) [humaLOG] 0 unit SQ ACHS #1 vial Lisinopril [Zestril] 5 mg PO DAILY tab Melatonin 5 mg PO HS tablet Metoprolol Tartrate [Lopressor] 25 mg PO BID tab Multivitamins, Thera [Multivitamin (formulary)] 1 each PO DAILY@1200 tab predniSONE 10 mg PO DIRECTED #30 tab Sennosides-Docusate Sodium [Senokot-S] 1 each PO BID tab Continue Montelukast [Singulair] 10 mg PO HS Tamsulosin HCl [Flomax] 0.4 mg PO HS Meclizine [Antivert] 25 mg PO DAILY Lovastatin [Mevacor] 10 mg PO HS Finasteride [Proscar] 5 mg PO HS Budesonide [Pulmicort] 0.5 mg INHALATION RT-BID Omeprazole 20 mg PO DAILY Benzonatate [Benzonatate Perle] 200 mg PO TID@0900,1600,2200 HYDROcodone/APAP 10-325MG [[place] 10-325] 1 tab PO QID PRN #30 tab PRN Reason: Pain Ipratropium-Albuterol Nebulize [Duoneb 0.5 mg-3 mg/3 ml Soln] 3 ml INHALATION RT-QID #0 Discontinued Albuterol Inhaler [Ventolin Hfa Inhaler] 2 puff INHALATION RT-Q6H PRN PRN Reason: Shortness Of Breath Lisinopril [Zestril] 10 mg PO DAILY #0 Discharge Medication List Benzonatate [Benzonatate Per[place]] 200 mg PO TID@0900,1600,2200 11/18/17 [History] Budesonide [Pulmicort] 0.5 mg INHALATION RT-BID 11/18/17 [History] Finasteride [Proscar] 5 mg PO HS 11/18/17 [History] Lovastatin [Mevacor] 10 mg PO HS 11/18/17 [History] Meclizine [Antivert] 25 mg PO DAILY 11/18/17 [History] Montelukast [Singulair] 10 mg PO HS 11/18/17 [History] Omeprazole 20 mg PO DAILY 11/18/17 [History] Tamsulosin HCl [Flomax] 0.4 mg PO HS 11/18/17 [History] Ertapenem [INVanz] 1 gm IVPB Q24H #12 bag 12/27/17 [Rx] Vancomycin 1,500 mg IVPB Q12H #24 vial 12/27/17 [Rx] ALPRAZolam [Xanax] 0.25 mg PO TID PRN #20 tab 12/31/17 [Rx] Acetaminophen Tab [Tylenol] 650 mg PO Q6HR PRN tab 12/31/17 [Rx] Aspirin 81 mg PO DAILY chew 12/31/17 [Rx] Escitalopram [Lexapro] 10 mg PO HS tab 12/31/17 [Rx] HYDROcodone/APAP 10-325MG [[place] 10-325] 1 tab PO QID PRN #30 tab 12/31/17 [Rx] INSULIN LISPRO (HumaLOG) [humaLOG] 0 unit SQ ACHS #1 vial 12/31/17 [Rx] Ipratropium-Albuterol Nebulize [Duoneb 0.5 mg-3 mg/3 ml Soln] 3 ml INHALATION RT -QID #0 12/31/17 [Rx] Lisinopril [Zestril] 5 mg PO DAILY tab 12/31/17 [Rx] Melatonin 5 mg PO HS tablet 12/31/17 [Rx] Metoprolol Tartrate [Lopressor] 25 mg PO BID tab 12/31/17 [Rx] Multivitamins, Thera [Multivitamin (formulary)] 1 each PO DAILY@1200 tab [Rx] Sennosides-Docusate Sodium [Senokot-S] 1 each PO BID tab 12/31/17 [Rx] predniSONE 10 mg PO DIRECTED #30 tab 12/31/17 [Rx] Follow up Appointment(s)/Referral(s): Herminio Ovalles MD [STAFF PHYSICIAN] - 2 Weeks Khoi Avila MD [STAFF PHYSICIAN] - 01/16/18 9:00 am [facility], [NON-STAFF] - Quinton Gary DO [Primary Care Provider] - 1-2 days Ambulatory/Diagnostic Orders: Basic Metabolic Panel [LAB.AMB] Location: Determined By Patient Complete Blood Count w/diff [LAB.AMB] Location: Determined By Patient Activity/Diet/Wound Care/Special Instructions: Call Rad Nurse #[id number] for initial follow up appointment prior to discharge
[2017-12-31 12:22] LABS: Glucose,Whole Blood 124 mg/dL (75-99)
--- NOTE | 2017-12-31 14:04 | P.PN ---
Subjective Progress Note Date: 12/31/17 Principal diagnosis: Left chest surgical site subcutaneous fluid collection, postoperative left- sided chest pain. Previous medical history of COPD, previous tobacco dependence , hypertension, hyperlipidemia, prostate disorder, Mnire's disease, hearing disorder. Status post left thoracotomy closure of diaphragmatic hernia with patch, repair of costochondral dislocation and subsequent lung herniation completed 11/22/2017. Recent diagnosis of paroxysmal atrial fibrillation last admission, placed on Lopressor which the patient stopped at home, not a candidate for anticoagulation per cardiology. POD #7 ultrasound-guided seroma drainage by interventional radiology with placement of pigtail catheter Patient continues to progress, ambulating in the hallway with oxygen. Denies pain, states shortness of breath is getting better. States he feels ready to be discharged to rehab. Objective - Vital Signs Vital signs: Vital Signs Temp 96.9 F L 12/31/17 07:00 Pulse 84 12/31/17 11:41 Resp 18 12/31/17 07:00 BP 137/95 12/31/17 07:00 Pulse Ox 95 12/31/17 07:36 Intake & Output 12/30/17 12/31/17 12/31/17 18:59 06:59 18:59 Intake Total 520 200 Output Total 27 8 Balance 493 192 Weight 86 kg Intake: Oral 520 200 Output: Drainage 27 8 Left Lateral Chest 27 8 Other: Voiding Method Urinal Urinal # Voids 0 # Bowel Movements 0 - Constitutional General appearance: Present: cooperative, no acute distress - Respiratory Details: Clear bilaterally. Respirations even, nonlabored. Currently on room air with oxygen saturation 94%. Left-sided pigtail catheter present, 7 mL serous drainage in the last 24 hours, no drainage on midnights last night, no drainage today. - Cardiovascular Details: S1, S2 present. Regular rate and rhythm, sinus rhythm on telemetry. Palpable peripheral pulses bilaterally. Trace bilateral lower extremity edema still present. No calf pain or tenderness noted. - Gastrointestinal Gastrointestinal Comment(s): Abdomen soft, nontender, nondistended. Active bowel sounds 4 quadrants. Tolerating diet. - Genitourinary Genitourinary Comment(s): Continues to void. - Integumentary Integumentary Comment(s): Skin is warm and dry with evidence of good perfusion. Left lateral incision site well healed. - Neurologic Neurologic: Present: CNII-XII intact - Musculoskeletal Musculoskeletal: Present: gait normal, strength equal bilaterally - Psychiatric Psychiatric: Present: A&O x's 3, appropriate affect, intact judgment & insight - Allied health notes Allied health notes reviewed: nursing - Labs CBC & Chem 7: 12/31/17 08:39 12/31/17 08:39 Labs: Abnormal Lab Results - Last 24 Hours (Table) 12/30/17 12/30/17 12/31/17 Range/Units 17:19 20:52 08:39 WBC 16.4 H (3.8-10.6) k/uL Hgb 12.9 L (13.0-17.5) gm/dL MCHC 30.5 L (31.0-37.0) g/dL Plt Count 580 H (150-450) k/uL Neutrophils # 15.1 H (1.3-7.7) k/uL Lymphocytes # 0.5 L (1.0-4.8) k/uL BUN (9-20) mg/dL Glucose (74-99) mg/dL POC Glucose (mg/dL) 112 H 100 H (75-99) mg/dL 12/31/17 12/31/17 Range/Units 08:39 12:20 WBC (3.8-10.6) k/uL Hgb (13.0-17.5) gm/dL MCHC (31.0-37.0) g/dL Plt Count (150-450) k/uL Neutrophils # (1.3-7.7) k/uL Lymphocytes # (1.0-4.8) k/uL BUN 32 H (9-20) mg/dL Glucose 117 H (74-99) mg/dL POC Glucose (mg/dL) 124 H (75-99) mg/dL Assessment and Plan (1) Pleural mass Current Visit: Yes Status: Chronic Code(s): J94.9 - PLEURAL CONDITION, UNSPECIFIED SNOMED Code(s): 774058758 (2) Postoperative pain Current Visit: Yes Status: Chronic Code(s): G89.18 - OTHER ACUTE POSTPROCEDURAL PAIN SNOMED Code(s): 306353590 (3) Mnire's disease Current Visit: No Status: Chronic Code(s): H81.09 - MENIERE'S DISEASE, UNSPECIFIED EAR SNOMED Code(s): 83135005 (4) Paroxysmal atrial fibrillation Current Visit: Yes Status: Acute Code(s): I48.0 - PAROXYSMAL ATRIAL FIBRILLATION SNOMED Code(s): 518657903 (5) COPD (chronic obstructive pulmonary disease) Current Visit: Yes Status: Chronic Code(s): J44.9 - CHRONIC OBSTRUCTIVE PULMONARY DISEASE, UNSPECIFIED SNOMED Code(s): 16925595 (6) Hard of hearing Current Visit: Yes Status: Chronic Code(s): H91.90 - UNSPECIFIED HEARING LOSS, UNSPECIFIED EAR SNOMED Code(s): 33960255 (7) Hyperlipidemia Current Visit: No Status: Chronic Code(s): E78.5 - HYPERLIPIDEMIA, UNSPECIFIED SNOMED Code(s): 13354661 (8) Hypertension Current Visit: No Status: Chronic Code(s): I10 - ESSENTIAL (PRIMARY) HYPERTENSION SNOMED Code(s): 68463036 (9) Prostate disorder Current Visit: No Status: Chronic Code(s): N42.9 - DISORDER OF PROSTATE, UNSPECIFIED SNOMED Code(s): 45078136 Plan: 1. Pain control with ordered medications. 2. Antibiotic management per infectious disease. 3. Discontinue pigtail drain. 4. Wean O2 as tolerated.Encourage incentive spirometry use 10 times every hour. 5. GI/DVT prophylaxis. 6. Heart rhythm management per cardiology. 7. Bronchodilators, steroids per pulmonology. 8. Continue to reinforce disease management teaching with patient and . 9. May discharge from cardiothoracic surgery standpoint. Time with Patient: Greater than 30
[2017-12-31 14:43] VITALS: BMI 28.0
[2017-12-31 15:48] VITALS: PULSE 86
--- NOTE | 2017-12-31 16:48 | P.PN ---
Subjective Progress Note Date: 12/30/17 (Late entry note) Principal diagnosis: Left-sided severe pleuritic chest pain, loculated left pleural effusion with the severe,/abscess formation into the soft tissues, service, intermittent hypertension, severe COPD, perforated left diaphragm with fracture of costochondral junction status post repair of diaphragmatic and dislocation, generalized anxiety disorder, paroxysmal atrial fibrillation 12/30/2017, patient seen and evaluated examined clinically doing slightly better shortness of breath pain is relatively better under control about 10 mL drainage has been noted and pigtail catheter and the drain the patient continue to get breathing treatment deep breathing sense incentive spirometry he frequently forgets to use oxygen and complain of shortness of breath however with oxygen does feel better cardiothoracic surgery planning to keep it for one more day to monitor observe drainage through the chest wall site, labs reviewed medications reviewed, patient is being planned for placement into [facility] for rehabilitation purposes as well as finishing antibiotics 12/29/2017, patient seen and evaluated examined during the rounds clinically slightly better breathing cuff congestion and left-sided chest wall pain has improved patient is still have pleural drainage catheter present about 20 mL of the serous fluid has accumulated in the back since yesterday left-sided chest pain is better under control compared to prior exam swelling in the lower extremity has improved however is still present patient has been ambulating has been using it more regularly oxygen continued do deep breathing exercise incentive spirometry, chest x-ray from today reviewed and compared with the prior x-ray some infiltrate in the right middle lobe as well as the left basilar area cannot be excluded with atelectasis, labs reviewed white cell count is down to 12,600 from 15,400, hemoglobin remained stable with stable labs of BUN/creatinine chemistry sugars slightly on the higher side, medications reviewed 12/28/2017, patient seen eval examined during the rounds he continued to have issues associated with shortness of breath he has not been using oxygen on a regular basis, patient has +1 edema in the lower extremities also has some crackles on examination care plan discussed with the present at bedside as patient time spent over 35 minutes x-ray findings has been reviewed patient is still have some discharge and drainage to the PITA drain 20 mL has been noted accumulated since morning, severity of chest pain has improved to the patient denies any significant chest pain but does have intermittent episodes of severe overwhelming anxiety cultures reviewed, laboratory data reviewed as well leukocytosis appears to be settling down as down to 15,000 from over 17,000 steroids has been lowered down to once daily about 48 hours ago but patient is slowly retrograde more symptomatic we'll go up on Solu-Medrol 40 every 12 continue Lasix every 12 as well, patient has been advised to increase activity as tolerated 12/27/2017, patient seen eval examined during the rounds is present at bedside patient does have mild degree or shortness of breath activity and exertion however cuff congestion and sputum production has improved significantly pain is improved where he did not require morphine he has not been using oxygen regularly given that the he has some dryness in the nose humidification has been admitted, patient is being planned for long-term IV antibiotics which will be provided likely an extended care facility patient will be discharged from here and we'll go to [facility] for couple of weeks to finish therapy patient has a drainage catheter by interventional radiology third day about 40 mL has been obtained today, over 72 hours no growth in the Gram stain and culture has been noted from the drainage, chest x-ray performed earlier this morning reviewed chest tube was stable with interstitial disease and a small residual fluid predominantly on the left side 12/26/2017, patient seen eval examined during the rounds the he continued to have issues associated with shortness of breath however noted that patient was without oxygen I applied the oxygen back with that he feels better, he still have for left-sided thoracic wall pain continued to require 3-4 times morphine, care plan discussed with thoracic surgery plan is to monitor observe as no significant output has been noted bulging in the intercostal ribs however appears to be slightly diminished and less tender, right heme edema at the incision size is stable no significant worsening has been seen so far culture continued to be negative no new growth has been noted, labs reviewed medications reviewed white cell count is 17,000 with a rise in WBC count we'll continue to taper down the steroids 12/25/2017, patient seen eval reexamined during the rounds he is sitting upright on the bed breathing comfortably severity of pain is better he gets short of breath on activity and exertion currently is on 4 L oxygen, patient underwent CT-guided pleural drainage catheter placement by interventional radiology about 100 mL of serous sanguinous fluid has been removed final ID and cultures are pending preliminary Gram stain revealed absence of organism however many white cells are seen, blood cultures 2 so far has been negative, labs reviewed medications reviewed we'll continue breathing treatment however start tapering down the steroids care plan discussed with the patient and at length patient may very well require home IV antibiotics via PICC line 12/24/2017, patient seen eval examined care plan discussed with the cardiovascular service and primary service, respiratory status overall stable and improved but still have significant pain requiring morphine every 6 hour cardiothoracic surgery is following the recommended for CT-guided or ultrasound- guided drainage by interventional radiology 12/23/2017, patient seen eval reexamined noted patient has slight fluid overload required IV Lasix continued to be on breathing treatments continue require pain medication seems to be controlling the severity of pain patient has been eval by cardiothoracic surgery furthermore definitely would intervention are being discussed Mr. Cheatham is a 72-year-old male well-known to me patient has a history of end- stage lung disease second to severe COPD emphysema patient has been doing relatively well since discharged recently after bilateral pneumonia treatment however started having recurrence of pain about 2 days ago patient was seen in the office yesterday his pain was minimal at that time he couldn't tolerate the [facility] due to his the confusion and apneic episode he had some crackles present at the bases otherwise hemodynamic status was stable patient had at that time noted to have on outpatient setting low blood pressure however they did resolve after discontinuation of Lopressor patient was stable throughout the day however and of the day in the evening started having chest pain predominantly on the left side and dental pain becomes 10 out of 10 in addition subsequently patient started developing shortness of breath he started coughing with very thick tenacious yellowish-green mucus sputum and developed shortness of breath he was brought into the emergency department he was found to be did require a small bolus of crystalloid with with normal saline with the stabilization of blood pressure patient has been admitted into the hospital I've discussed with the emergency department service to consult Dr. Avila as the chest x-ray performed today revealed density on the left side has progressed in size from 4 cm to 7 cm in addition to that I will ask them to obtain a computed tomography scan of the chest which can be done without contrast. Patient is well-known to me he has been hospitalized and later part of September for acute COPD exacerbation and early October he was found to have a perforated left diaphragm which was repaired by Dr. Avila patient subsequently was rehospitalized 2 times with pneumonia at bases was eventually discharged in stable condition after extensive IV antibiotics patient was evaluated by infectious disease services Dr. Ovalles at that time as well recommended patient to be treated with Augmentin on outpatient basis Objective - Vital Signs Vital signs: Vital Signs Temp 96.9 F L 12/31/17 07:00 Pulse 86 12/31/17 15:41 Resp 18 12/31/17 07:00 BP 137/95 12/31/17 07:00 Pulse Ox 95 12/31/17 15:32 Intake & Output 12/30/17 12/31/17 12/31/17 18:59 06:59 18:59 Intake Total 520 520 Output Total 27 8 Balance 493 512 Weight 86 kg 86 kg Intake: Oral 520 520 Output: Drainage 27 8 Left Lateral Chest 27 8 Other: Voiding Method Urinal Urinal # Voids 0 # Bowel Movements 0 - Exam This is a well-developed well-nourished awake alert oriented 3 male Limitations: no limitations General appearance: alert, in no apparent distress, appeared to be in better spirits today Head exam: Present: atraumatic, normocephalic, normal inspection Eye exam: Present: normal appearance, PERRL, EOMI. Absent: scleral icterus, conjunctival injection, periorbital swelling ENT exam: Present: mucous membranes dry Neck exam: Present: normal inspection. Absent: tenderness, meningismus, lymphadenopathy Respiratory exam: Present: Bilateral basal few rales noted with overall improved air entry, no wheezing are present, chest wall tenderness, noted mild chest wall tenderness on the left the incision site appears to be intact no definite wound dehiscence mild some localized erythema noted without any significant discharge, respiratory distress, wheezes, rhonchi, stridor noted, overall exam not much change compared to yesterday, pleural drainage catheter is present connected with PITA drain, bilateral crackles noted predominantly at the bases and inspiratory Cardiovascular Exam: Present: regular rate, normal rhythm, normal heart sounds. Absent: systolic murmur, diastolic murmur, rubs, gallop, clicks GI/Abdominal exam: Present: soft, normal bowel sounds. Absent: distended, tenderness, guarding, rebound, rigid, bruit, pulsatile mass, hernia Rectal exam: Present: deferred Extremities exam: Present: normal inspection, full ROM, normal capillary refill. Trace edema noted bilaterally pretibial Absent: tenderness, pedal edema , joint swelling, calf tenderness Back exam: Present: normal inspection Neurological exam: Present: alert, oriented X3, CN II-XII intact Psychiatric exam: Present: normal affect, normal mood Skin exam: Present: warm, dry, intact, normal color. Absent: rash - Labs CBC & Chem 7: 12/31/17 08:39 12/31/17 08:39 Labs: Abnormal Lab Results - Last 24 Hours (Table) 12/30/17 12/30/17 12/31/17 Range/Units 17:19 20:52 08:39 WBC 16.4 H (3.8-10.6) k/uL Hgb 12.9 L (13.0-17.5) gm/dL MCHC 30.5 L (31.0-37.0) g/dL Plt Count 580 H (150-450) k/uL Neutrophils # 15.1 H (1.3-7.7) k/uL Lymphocytes # 0.5 L (1.0-4.8) k/uL BUN (9-20) mg/dL Glucose (74-99) mg/dL POC Glucose (mg/dL) 112 H 100 H (75-99) mg/dL 12/31/17 12/31/17 Range/Units 08:39 12:20 WBC (3.8-10.6) k/uL Hgb (13.0-17.5) gm/dL MCHC (31.0-37.0) g/dL Plt Count (150-450) k/uL Neutrophils # (1.3-7.7) k/uL Lymphocytes # (1.0-4.8) k/uL BUN 32 H (9-20) mg/dL Glucose 117 H (74-99) mg/dL POC Glucose (mg/dL) 124 H (75-99) mg/dL Assessment and Plan Assessment: Leukocytosis likely related chronic inflammatory processes as well as steroids, improvement was noted when start tapering it down, but patient because more symptomatic will maintain to every 12 Acute on chronic hypoxic respirator failure on 2-4 L oxygen, but patient has been using oxygen regularly advised for it to continue deep breathing sense incentive spirometry Left-sided severe postoperative pleuritic chest pain Left thoracic wall seroma/abscess Left-sided loculated pleural effusion appearing as a lung mass which is pleural based Low-grade Sirs early sepsis cannot be excluded with the presentation with hypotension did respond with crystalloids Severe COPD Recent perforated left diaphragm with fracture of costochondral junction requiring repair Hypertension hypertensive cardiovascular disease Generalized anxiety disorder History of paroxysmal atrial fibrillation couldn't tolerate Lopressor cardiology has evaluated him in the past not considered to be a candidate for anticoagulation Plan: Continue bronchodilators, continue Solu-Medrol, continue Pain control Continue antibiotics with ID service has been following Pending further intervention as per thoracic surgery A computed tomography scan of the chest reviewed Continue home medications including breathing treatments maintain patient on DVT and peptic ulcer disease prophylaxis increase activity as tolerated further recommendations pending plan of care as per clinical response of the patient Follow-up on culture results and report Plan of care as noted above further recommendations pending Time with Patient: Greater than 30
--- NOTE | 2017-12-31 16:52 | P.PN ---
Subjective Progress Note Date: 12/31/17 Principal diagnosis: Left-sided severe pleuritic chest pain, loculated left pleural effusion with the severe,/abscess formation into the soft tissues, service, intermittent hypertension, severe COPD, perforated left diaphragm with fracture of costochondral junction status post repair of diaphragmatic and dislocation, generalized anxiety disorder, paroxysmal atrial fibrillation 12/31/2017, patient seen and evaluated examined during the rounds clinically doing well awake and alert breathing comfortably able to ambulate no drainage has been seen in the drainage catheter as discussed with cardiothoracic surgery plan is to remove the catheter patient is being prepared for the placement to the ECF likely later on today on long-term antibiotics via PICC line, will DC the Solu-Medrol put patient on Medrol Dosepak discussed with RN 12/30/2017, patient seen and evaluated examined clinically doing slightly better shortness of breath pain is relatively better under control about 10 mL drainage has been noted and pigtail catheter and the drain the patient continue to get breathing treatment deep breathing sense incentive spirometry he frequently forgets to use oxygen and complain of shortness of breath however with oxygen does feel better cardiothoracic surgery planning to keep it for one more day to monitor observe drainage through the chest wall site, labs reviewed medications reviewed, patient is being planned for placement into ECF for rehabilitation purposes as well as finishing antibiotics 12/29/2017, patient seen and evaluated examined during the rounds clinically slightly better breathing cuff congestion and left-sided chest wall pain has improved patient is still have pleural drainage catheter present about 20 mL of the serous fluid has accumulated in the back since yesterday left-sided chest pain is better under control compared to prior exam swelling in the lower extremity has improved however is still present patient has been ambulating has been using it more regularly oxygen continued do deep breathing exercise incentive spirometry, chest x-ray from today reviewed and compared with the prior x-ray some infiltrate in the right middle lobe as well as the left basilar area cannot be excluded with atelectasis, labs reviewed white cell count is down to 12,600 from 15,400, hemoglobin remained stable with stable labs of BUN/creatinine chemistry sugars slightly on the higher side, medications reviewed 12/28/2017, patient seen eval examined during the rounds he continued to have issues associated with shortness of breath he has not been using oxygen on a regular basis, patient has +1 edema in the lower extremities also has some crackles on examination care plan discussed with the present at bedside as patient time spent over 35 minutes x-ray findings has been reviewed patient is still have some discharge and drainage to the PITA drain 20 mL has been noted accumulated since morning, severity of chest pain has improved to the patient denies any significant chest pain but does have intermittent episodes of severe overwhelming anxiety cultures reviewed, laboratory data reviewed as well leukocytosis appears to be settling down as down to 15,000 from over 17,000 steroids has been lowered down to once daily about 48 hours ago but patient is slowly retrograde more symptomatic we'll go up on Solu-Medrol 40 every 12 continue Lasix every 12 as well, patient has been advised to increase activity as tolerated 12/27/2017, patient seen eval examined during the rounds is present at bedside patient does have mild degree or shortness of breath activity and exertion however cuff congestion and sputum production has improved significantly pain is improved where he did not require morphine he has not been using oxygen regularly given that the he has some dryness in the nose humidification has been admitted, patient is being planned for long-term IV antibiotics which will be provided likely an [facility] care facility patient will be discharged from here and we'll go to [facility] for couple of weeks to finish therapy patient has a drainage catheter by interventional radiology third day about 40 mL has been obtained today, over 72 hours no growth in the Gram stain and culture has been noted from the drainage, chest x-ray performed earlier this morning reviewed chest tube was stable with interstitial disease and a small residual fluid predominantly on the left side 12/26/2017, patient seen eval examined during the rounds the he continued to have issues associated with shortness of breath however noted that patient was without oxygen I applied the oxygen back with that he feels better, he still have for left-sided thoracic wall pain continued to require 3-4 times morphine, care plan discussed with thoracic surgery plan is to monitor observe as no significant output has been noted bulging in the intercostal ribs however appears to be slightly diminished and less tender, right heme edema at the incision size is stable no significant worsening has been seen so far culture continued to be negative no new growth has been noted, labs reviewed medications reviewed white cell count is 17,000 with a rise in WBC count we'll continue to taper down the steroids 12/25/2017, patient seen eval reexamined during the rounds he is sitting upright on the bed breathing comfortably severity of pain is better he gets short of breath on activity and exertion currently is on 4 L oxygen, patient underwent CT-guided pleural drainage catheter placement by interventional radiology about 100 mL of serous sanguinous fluid has been removed final ID and cultures are pending preliminary Gram stain revealed absence of organism however many white cells are seen, blood cultures 2 so far has been negative, labs reviewed medications reviewed we'll continue breathing treatment however start tapering down the steroids care plan discussed with the patient and at length patient may very well require home IV antibiotics via PICC line 12/24/2017, patient seen eval examined care plan discussed with the cardiovascular service and primary service, respiratory status overall stable and improved but still have significant pain requiring morphine every 6 hour cardiothoracic surgery is following the recommended for CT-guided or ultrasound- guided drainage by interventional radiology 12/23/2017, patient seen eval reexamined noted patient has slight fluid overload required IV Lasix continued to be on breathing treatments continue require pain medication seems to be controlling the severity of pain patient has been eval by cardiothoracic surgery furthermore definitely would intervention are being discussed Mr. Cheatham is a 72-year-old male well-known to me patient has a history of end- stage lung disease second to severe COPD emphysema patient has been doing relatively well since discharged recently after bilateral pneumonia treatment however started having recurrence of pain about 2 days ago patient was seen in the office yesterday his pain was minimal at that time he couldn't tolerate the [place] due to his the confusion and apneic episode he had some crackles present at the bases otherwise hemodynamic status was stable patient had at that time noted to have on outpatient setting low blood pressure however they did resolve after discontinuation of Lopressor patient was stable throughout the day however and of the day in the evening started having chest pain predominantly on the left side and dental pain becomes 10 out of 10 in addition subsequently patient started developing shortness of breath he started coughing with very thick tenacious yellowish-green mucus sputum and developed shortness of breath he was brought into the emergency department he was found to be did require a small bolus of crystalloid with with normal saline with the stabilization of blood pressure patient has been admitted into the hospital I've discussed with the emergency department service to consult Dr. Avila as the chest x-ray performed today revealed density on the left side has progressed in size from 4 cm to 7 cm in addition to that I will ask them to obtain a computed tomography scan of the chest which can be done without contrast. Patient is well-known to me he has been hospitalized and later part of September for acute COPD exacerbation and early October he was found to have a perforated left diaphragm which was repaired by Dr. Avila patient subsequently was rehospitalized 2 times with pneumonia at bases was eventually discharged in stable condition after extensive IV antibiotics patient was evaluated by infectious disease services Dr. Ovalles at that time as well recommended patient to be treated with Augmentin on outpatient basis Objective - Vital Signs Vital signs: Vital Signs Temp 96.9 F L 12/31/17 07:00 Pulse 86 12/31/17 15:41 Resp 18 12/31/17 07:00 BP 137/95 12/31/17 07:00 Pulse Ox 95 12/31/17 15:32 Intake & Output 12/30/17 12/31/17 12/31/17 18:59 06:59 18:59 Intake Total 520 520 Output Total 27 8 Balance 493 512 Weight 86 kg 86 kg Intake: Oral 520 520 Output: Drainage 27 8 Left Lateral Chest 27 8 Other: Voiding Method Urinal Urinal # Voids 0 # Bowel Movements 0 - Exam This is a well-developed well-nourished awake alert oriented 3 male Limitations: no limitations General appearance: alert, in no apparent distress, appeared to be in better spirits today Head exam: Present: atraumatic, normocephalic, normal inspection Eye exam: Present: normal appearance, PERRL, EOMI. Absent: scleral icterus, conjunctival injection, periorbital swelling ENT exam: Present: mucous membranes dry Neck exam: Present: normal inspection. Absent: tenderness, meningismus, lymphadenopathy Respiratory exam: Present: Bilateral basal few rales noted with overall improved air entry, no wheezing are present, chest wall tenderness, noted no chest wall tenderness on the left the incision site appears to be intact no definite wound dehiscence mild some localized erythema noted without any significant discharge, respiratory distress, wheezes, rhonchi, stridor noted, overall exam not much change compared to yesterday, pleural drainage catheter is present connected with drainage bag, very few occasional bilateral crackles noted predominantly at the bases and on deep inspiratory effort Cardiovascular Exam: Present: regular rate, normal rhythm, normal heart sounds. Absent: systolic murmur, diastolic murmur, rubs, gallop, clicks GI/Abdominal exam: Present: soft, normal bowel sounds. Absent: distended, tenderness, guarding, rebound, rigid, bruit, pulsatile mass, hernia Rectal exam: Present: deferred Extremities exam: Present: normal inspection, full ROM, normal capillary refill. Trace edema noted bilaterally pretibial Absent: tenderness, pedal edema , joint swelling, calf tenderness Back exam: Present: normal inspection Neurological exam: Present: alert, oriented X3, CN II-XII intact Psychiatric exam: Present: normal affect, normal mood Skin exam: Present: warm, dry, intact, normal color. Absent: rash - Labs CBC & Chem 7: 12/31/17 08:39 12/31/17 08:39 Labs: Abnormal Lab Results - Last 24 Hours (Table) 12/30/17 12/30/17 12/31/17 Range/Units 17:19 20:52 08:39 WBC 16.4 H (3.8-10.6) k/uL Hgb 12.9 L (13.0-17.5) gm/dL MCHC 30.5 L (31.0-37.0) g/dL Plt Count 580 H (150-450) k/uL Neutrophils # 15.1 H (1.3-7.7) k/uL Lymphocytes # 0.5 L (1.0-4.8) k/uL BUN (9-20) mg/dL Glucose (74-99) mg/dL POC Glucose (mg/dL) 112 H 100 H (75-99) mg/dL 12/31/17 12/31/17 Range/Units 08:39 12:20 WBC (3.8-10.6) k/uL Hgb (13.0-17.5) gm/dL MCHC (31.0-37.0) g/dL Plt Count (150-450) k/uL Neutrophils # (1.3-7.7) k/uL Lymphocytes # (1.0-4.8) k/uL BUN 32 H (9-20) mg/dL Glucose 117 H (74-99) mg/dL POC Glucose (mg/dL) 124 H (75-99) mg/dL Assessment and Plan Assessment: Leukocytosis likely related chronic inflammatory processes as well as steroids, improvement was noted when start tapering it down, but patient because more symptomatic will initiate on Medrol Dosepak and titrate accordingly, Acute on chronic hypoxic respirator failure on 2-4 L oxygen, but patient has been using oxygen regularly advised for it to continue deep breathing sense incentive spirometry,sats did drop down to 88% at times will keep on 2 L oxygen Left-sided severe postoperative pleuritic chest pain Left thoracic wall seroma/abscess Left-sided loculated pleural effusion appearing as a lung mass which is pleural based Low-grade [place] early sepsis cannot be excluded with the presentation with hypotension did respond with crystalloids Severe COPD Recent perforated left diaphragm with fracture of costochondral junction requiring repair Hypertension hypertensive cardiovascular disease Generalized anxiety disorder History of paroxysmal atrial fibrillation couldn't tolerate Lopressor cardiology has evaluated him in the past not considered to be a candidate for anticoagulation Plan: Continue bronchodilators, continue Dosepak, continue Pain control avoid narcotics Continue antibiotics with ID service has been following , status post PICC line with 12 more days of IV Merrem Pending further intervention as per thoracic surgery for removal of a pigtail catheter from the left thoracic wall Continue home medications including breathing treatments maintain patient on DVT and peptic ulcer disease prophylaxis increase activity as tolerated further recommendations pending plan of care as per clinical response of the patient Follow-up on culture results and report Plan of care as noted above further recommendations pending agree with discharge planning with follow-up in outpatient setting Time with Patient: Greater than 30
[2018-01-01] MEDS ORDERED: VANCOMYCIN TROUGH DUE 1 EACH MISC MISCELLANE ONE (08:00)
[2018-01-01] MEDS ORDERED: predniSONE 20 MG TAB PO SCH (09:00)
== END 2017-12-31 16:01 | DRG 919 ==
LOC: EC 08:50 → 5MS5E 11:03 → 4MS4W 13:14
PROVIDERS: ADMIT Internal Medicine; ATTEND Internal Medicine
PROC: 0J963ZX Drainage of Chest Subcutaneous Tissue and Fascia, Percutaneous Approach, Diagnostic (ICD-10-PCS; principal; 2017-12-24)
PROC: 02HV33Z Insertion of Infusion Device into Superior Vena Cava, Percutaneous Approach (ICD-10-PCS; 2017-12-28 12:00)
DX: M96.842 Postprocedural seroma of a musculoskeletal structure following a musculoskeletal system procedure (principal); I50.33 Acute on chronic diastolic (congestive) heart failure; J96.21 Acute and chronic respiratory failure with hypoxia; J90 Pleural effusion, not elsewhere classified; I95.9 Hypotension, unspecified; I48.0 Paroxysmal atrial fibrillation; L02.213 Cutaneous abscess of chest wall; J44.1 Chronic obstructive pulmonary disease with (acute) exacerbation; I11.0 Hypertensive heart disease with heart failure; I08.1 Rheumatic disorders of both mitral and tricuspid valves; F41.1 Generalized anxiety disorder; H91.90 Unspecified hearing loss, unspecified ear; K08.89 Other specified disorders of teeth and supporting structures; E78.5 Hyperlipidemia, unspecified; H81.09 Meniere's disease, unspecified ear; K44.9 Diaphragmatic hernia without obstruction or gangrene; N42.9 Disorder of prostate, unspecified; M47.9 Spondylosis, unspecified; Z79.891 Long term (current) use of opiate analgesic; Z79.51 Long term (current) use of inhaled steroids; Z79.899 Other long term (current) drug therapy; Z87.891 Personal history of nicotine dependence; Y83.4 Other reconstructive surgery as the cause of abnormal reaction of the patient, or of later complication, without mention of misadventure at the time of the procedure
CPT/HCPCS: 36415; 36569; 49405; 71045; 71046; 71250; 74177; 76937; 76942; 77001; 80048; 80053; 80202; 81003; 82550; 82553; 83036; 83605; 83735; 83880; 84484; 85025; 85610; 85730; 87040; 87070; 87086; 87205; 87502; 88108; 88305; 93005; 94640; 94760; 96361; 96374; 96375; 99285

== ENCOUNTER → 2018-03-14 | Outpatient (CLI) | payer MEDICARE ==
--- NOTE | 2018-03-14 17:21 | CONS ---
CONSULTATION A 73-year-old gentleman has been evaluated in [facility] for possible obstructive sleep apnea-hypopnea syndrome. HISTORY OF PRESENT ILLNESS/SLEEP WAKE EVALUATION: SLEEP SCHEDULE: Patient usual sleep schedule from around 8:30/9 pm until 6/6:15 am. FALLING ASLEEP: No problem with falling asleep, although she has TV set in bedroom. DURING SLEEP: Patient sleeps with his with snoring and witnessed episodes of stopped breathing during the sleep. The patient wakes up from sleep up to 6 or more times and so many times he needs to go to the restroom. He also has some arm movements, possibly out of dream movements, but he never fell out of bed or walk out of bed. No history of hypnagogic hallucinations, sleep paralysis or cataplexy. DURING THE DAY/SLEEP WAKE EVALUATION: In the morning patient wakes up tired has difficulties to pay attention worry about his sleep, has problems with memory, concentration, irritability, depression, sexual dysfunction. [place] Sleepiness Scale is 8. PAST MEDICAL HISTORY: Positive for hypertension, hyperlipidemia, episodes of dizziness, BPH, COPD, emphysema, recent episode of pneumonia and sepsis while he was in the hospital. 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 MEDICATIONS: Meclizine, lisinopril, metoprolol, lovastatin, tamsulosin, finasteride, trazodone. SOCIAL HISTORY: Positive for smoking in the past for about 25 pack years, quit about 8 years ago. Alcohol consumption occasional. REVIEW OF SYSTEMS: Multiple awakenings from sleep, cough. FAMILY HISTORY: Hypertension, hyperlipidemia, arthritis, headaches, cancer, during the sleep in the family. PHYSICAL EXAM: gentleman without distress. BP 108/70, HR 80, RR 16, height 5 feet 8 inches, weight 198, BMI 29.9, temperature 97.6, oxygen saturation on room air 93%. Oropharynx moderately low position of soft palate. Neck 16-1/2 inches in circumference. Lungs few rales on the right side, extremities 1+ bilateral ankle edema. Neck Supple, no JVD. Thyroid is not palpable. LUNGS Clear to percussion and to auscultation. Good air exchange. No wheezing or rhonchi. HEART S1, S2 regular. No murmurs, gallops, or rubs. ABDOMEN : Soft and nontender. Bowel sounds are present. No organomegaly appreciated. EXTREMITIES No clubbing or cyanosis. [employer] Awake, alert, and oriented X3. Cranial nerves 2 to 7 intact. There is no fasciculation or atrophy. noted. No focal deficits observed. IMPRESSION: 1. Snoring, witnessed episodes of stopped breathing during the sleep. Moderately low position of soft palate, multiple awakenings from sleep, obstructive sleep apnea- hypopnea syndrome. 2. Hypertension. 3. Hyperlipidemia. 4. Episodes of dizziness. 5. Benign prostatic hypertrophy. 6. Chronic obstructive pulmonary disease. 7. History of emphysema. 8. Status post surgical treatment of lung herniation through the diaphragm in October of 2017. 9. History of umbilical hernia treated about 10 years ago. 10.History of recent pneumonia, history of recent sepsis in October of 2017. 2. 11.Some difficulties to initiate sleep sometimes, but no problems while on treatment with trazodone. PLAN: 1. Polysomnography for evaluation of patient's breathing during sleep. 2. CPAP/BiPAP titration if sleep study confirms obstructive sleep apnea-hypopnea syndrome. 3. Preferable position during sleep on the side. 4. No driving if patient feels any sleepiness. 5. I will see patient for follow up visit to explain results of testing and following plan. Thank you very much for referring this patient for consultation. Sincerely, Stephan Seth MD, PhD, FAASM Diplomat of [employer] [employer] [employer] [facility] MMODL / IJN: [id number] /
== END | disposition home or self-care (01) ==
LOC: SLEEP 14:44
PROVIDERS: ATTEND Internal Medicine
DX: G47.33 Obstructive sleep apnea (adult) (pediatric) (principal); M27.8 Other specified diseases of jaws; E78.5 Hyperlipidemia, unspecified; N40.0 Benign prostatic hyperplasia without lower urinary tract symptoms; I10 Essential (primary) hypertension; R42 Dizziness and giddiness; J43.9 Emphysema, unspecified; Z87.19 Personal history of other diseases of the digestive system; Z86.19 Personal history of other infectious and parasitic diseases; Z79.899 Other long term (current) drug therapy; Z87.891 Personal history of nicotine dependence
CPT/HCPCS: 99211

== ENCOUNTER 2018-04-11 21:43 | Emergency (ER) | payer MEDICARE ==
[2018-04-11] MEDS ORDERED: SODIUM CHLORIDE 0.9% 1,000 ML IV STA (21:52)
--- NOTE | 2018-04-11 21:55 | ED ---
General Adult HPI - General Chief complaint: Chest Pain Stated complaint: post op lung surgery/left side pain Time Seen by Provider: 04/11/18 21:52 Source: patient, family, RN notes reviewed, old records reviewed Mode of arrival: wheelchair Limitations: no limitations - History of Present Illness Initial comments: This is a 73-year-old male the ER for evaluation. This man presents for evaluation regarding chest pain left-sided chest pain severe chest pain is left- sided. 2 days pain, current sneeze. 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 Patient has mild shortness of breath but nothing different than normal, more or less just severe pain - Related Data Home Medications Medication Instructions Recorded Confirmed Lovastatin [Mevacor] 10 mg PO HS 11/18/17 04/11/18 Meclizine [Antivert] 25 mg PO TID 11/18/17 04/11/18 Tamsulosin HCl [Flomax] 0.4 mg PO BID 11/18/17 04/11/18 Albuterol Inhaler [Ventolin Hfa 1 - 2 puff INHALATION RT-Q6H PRN 04/11/18 Inhaler] Cetirizine HCl 10 mg PO DAILY 04/11/18 04/11/18 Chlorhexidine Gluconate [Peridex] 15 ml PO BID PRN 04/11/18 04/11/18 Cholecalciferol [Vitamin D3] 1,000 unit PO DAILY 04/11/18 04/11/18 Flaxseed Oil [[place]-3 Flaxseed Oil] 1,000 mg PO DAILY 04/11/18 04/11/18 Fluticasone Nasal [place] [Flonase 2 spr EA NOSTRIL DAILY 04/11/18 04/11/18 Nasal [place]] Losartan Potassium [Cozaar] 25 mg PO DAILY 04/11/18 04/11/18 Meloxicam 15 mg PO DAILY PRN 04/11/18 04/11/18 Multivitamins, Thera [Multivitamin 1 tab PO DAILY@1200 04/11/18 04/11/18 (formulary)] Ubidecarenone [Co Q-10] 100 mg PO DAILY 04/11/18 04/11/18 Umeclidinium Brm/Vilanterol Tr 1 puff INHALATION RT-DAILY 04/11/18 04/11/18 [Anoro Ellipta 62.5-25 Mcg INH] Previous Rx's Medication Instructions Recorded Aspirin 81 mg PO DAILY chew 12/31/17 Metoprolol Tartrate [Lopressor] 25 mg PO BID tab 12/31/17 Allergies Allergy/AdvReac Type Severity Reaction Status Date / Time No Known Allergies Allergy Verified 04/11/18 22:06 Review of Systems ROS Statement: Those systems with pertinent positive or pertinent negative responses have been documented in the HPI. ROS Other: All systems not noted in ROS Statement are negative. Past Medical History Past Medical History: COPD, Hearing Disorder / Deafness, Hyperlipidemia, Hypertension, Prostate Disorder Additional Past Medical History / Comment(s): emphysema, history of menieres disease History of Any Multi-Drug Resistant Organisms: None Reported Past Surgical History: Hernia Repair, Tonsillectomy Additional Past Surgical History / Comment(s): hernia X2, cyst on hand, right foot pin in great toe. Left thoracotomy closure of diaphragmatic hernia with patch, repair of costochondral dislocation with subsequent lung herniation November 22 2017 Past Anesthesia/Blood Transfusion Reactions: No Reported Reaction Past Psychological History: No Psychological Hx Reported Smoking Status: Former smoker Past Alcohol Use History: None Reported Past Drug Use History: None Reported - Past Family History Mother Family Medical History: Dementia Additional Family Medical History / Comment(s): breast cancer Father Family Medical History: No Reported History General Exam Limitations: no limitations General appearance: alert, in no apparent distress Head exam: Present: atraumatic, normocephalic, normal inspection Eye exam: Present: normal appearance, PERRL, EOMI. Absent: scleral icterus, conjunctival injection, periorbital swelling ENT exam: Present: normal exam, mucous membranes moist Neck exam: Present: normal inspection. Absent: tenderness, meningismus, lymphadenopathy Respiratory exam: Present: normal lung sounds bilaterally. Absent: respiratory distress, wheezes, rales, rhonchi, stridor Cardiovascular Exam: Present: regular rate, normal rhythm, normal heart sounds. Absent: systolic murmur, diastolic murmur, rubs, gallop, clicks GI/Abdominal exam: Present: soft, normal bowel sounds. Absent: distended, tenderness, guarding, rebound, rigid Extremities exam: Present: normal inspection, full ROM, normal capillary refill. Absent: tenderness, pedal edema, joint swelling, calf tenderness Back exam: Present: normal inspection Neurological exam: Present: alert, oriented X3, CN II-XII intact Psychiatric exam: Present: normal affect, normal mood Skin exam: Present: warm, dry, intact, normal color. Absent: rash Course Vital Signs 04/11/18 21:45 Temperature 98.5 F Pulse Rate 74 Respiratory 16 Rate Blood Pressure 129/76 O2 Sat by Pulse 95 Oximetry - Reevaluation(s) Reevaluation #1: 04/11/18 22:48 Medical records thoroughly reviewed EKG Findings - EKG Comments: EKG Findings:: EKG shows sinus rhythm rate of 67, ND 140, QRS 96, QTc 445 Medical Decision Making - Medical Decision Making 73 male the ER for evaluation of pain chest pain left-sided chest pain. No acute injury found. CT negative. Patient can be discharged home - Lab Data Result diagrams: 04/11/18 22:18 04/11/18 22:18 Lab Results 04/11/18 04/11/18 04/11/18 Range/Units 22:18 22:18 22:18 WBC 10.1 (3.8-10.6) k/uL RBC 5.22 (4.30-5.90) m/uL Hgb 15.3 (13.0-17.5) gm/dL Hct 46.9 (39.0-53.0) % MCV 89.9 (80.0-100.0) fL MCH 29.4 (25.0-35.0) pg MCHC 32.7 (31.0-37.0) g/dL RDW 14.0 (11.5-15.5) % Plt Count 282 (150-450) k/uL Neutrophils % 76 % Lymphocytes % 11 % Monocytes % 9 % Eosinophils % 2 % Basophils % 1 % Neutrophils # 7.7 (1.3-7.7) k/uL Lymphocytes # 1.1 (1.0-4.8) k/uL Monocytes # 0.9 (0-1.0) k/uL Eosinophils # 0.2 (0-0.7) k/uL Basophils # 0.1 (0-0.2) k/uL PT (9.0-12.0) sec INR (<1.2) APTT (22.0-30.0) sec D-Dimer (<0.60) mg/L FEU Sodium 137 (137-145) mmol/L Potassium 4.2 (3.5-5.1) mmol/L Chloride 102 (98-107) mmol/L Carbon Dioxide 22 (22-30) mmol/L Anion Gap 13 mmol/L BUN 18 (9-20) mg/dL Creatinine 0.88 (0.66-1.25) mg/dL Est GFR (CKD-EPI)AfAm >90 (>60 ml/min/1.73 sqM) Est GFR (CKD-EPI)NonAf 85 (>60 ml/min/1.73 sqM) Glucose 135 H (74-99) mg/dL Calcium 9.3 (8.4-10.2) mg/dL Magnesium 1.8 (1.6-2.3) mg/dL Total Bilirubin 0.5 (0.2-1.3) mg/dL AST 25 (17-59) U/L ALT 25 (21-72) U/L Alkaline Phosphatase 61 (38-126) U/L Total Creatine Kinase 63 (55-170) U/L CK-MB (CK-2) 1.2 (0.0-2.4) ng/mL CK-MB (CK-2) Rel Index 1.9 Troponin I <0.012 (0.000-0.034) ng/mL NT-Pro-B Natriuret Pep pg/mL Total Protein 6.8 (6.3-8.2) g/dL Albumin 4.1 (3.5-5.0) g/dL Lipase 61 (23-300) U/L 04/11/18 04/11/18 Range/Units 22:18 22:18 WBC (3.8-10.6) k/uL RBC (4.30-5.90) m/uL Hgb (13.0-17.5) gm/dL Hct (39.0-53.0) % MCV (80.0-100.0) fL MCH (25.0-35.0) pg MCHC (31.0-37.0) g/dL RDW (11.5-15.5) % Plt Count (150-450) k/uL Neutrophils % % Lymphocytes % % Monocytes % % Eosinophils % % Basophils % % Neutrophils # (1.3-7.7) k/uL Lymphocytes # (1.0-4.8) k/uL Monocytes # (0-1.0) k/uL Eosinophils # (0-0.7) k/uL Basophils # (0-0.2) k/uL PT 10.5 (9.0-12.0) sec INR 1.1 (<1.2) APTT 22.1 (22.0-30.0) sec D-Dimer 0.44 (<0.60) mg/L FEU Sodium (137-145) mmol/L Potassium (3.5-5.1) mmol/L Chloride (98-107) mmol/L Carbon Dioxide (22-30) mmol/L Anion Gap mmol/L BUN (9-20) mg/dL Creatinine (0.66-1.25) mg/dL Est GFR (CKD-EPI)AfAm (>60 ml/min/1.73 sqM) Est GFR (CKD-EPI)NonAf (>60 ml/min/1.73 sqM) Glucose (74-99) mg/dL Calcium (8.4-10.2) mg/dL Magnesium (1.6-2.3) mg/dL Total Bilirubin (0.2-1.3) mg/dL AST (17-59) U/L ALT (21-72) U/L Alkaline Phosphatase (38-126) U/L Total Creatine Kinase (55-170) U/L CK-MB (CK-2) (0.0-2.4) ng/mL CK-MB (CK-2) Rel Index Troponin I (0.000-0.034) ng/mL NT-Pro-B Natriuret Pep 213 pg/mL Total Protein (6.3-8.2) g/dL Albumin (3.5-5.0) g/dL Lipase (23-300) U/L - Radiology Data Radiology results: report reviewed (CT of chest abdomen negative for acute disease), image reviewed Disposition Clinical Impression: Chest pain, Postoperative pain Disposition: HOME SELF-CARE Condition: Good Instructions: Chest Pain (ED) Is patient prescribed a controlled substance at d/c from ED?: No Referrals: Quinton Gary DO [Primary Care Provider] - 1-2 days
[2018-04-11 22:31] LABS: Basophils # (A) 0.1 k/uL (0-0.2); Basophils % (A) 1 %; Eosinophils # (A) 0.2 k/uL (0-0.7); Eosinophils % (A) 2 %; HCT 46.9 % (39.0-53.0); HGB 15.3 gm/dL (13.0-17.5); Lymphocytes # (A) 1.1 k/uL (1.0-4.8); Lymphocytes % (A) 11 %; MCH 29.4 pg (25.0-35.0); MCHC 32.7 g/dL (31.0-37.0); MCV 89.9 fL (80.0-100.0); Monocytes # (A) 0.9 k/uL (0-1.0); Monocytes % (A) 9 %; Neutrophils # (A) 7.7 k/uL (1.3-7.7); Neutrophils % (A) 76 %; Platelet Count 282 k/uL (150-450); RBC 5.22 m/uL (4.30-5.90); WBC 10.1 k/uL (3.8-10.6)
[2018-04-11] MEDS ORDERED: KETOROLAC 30 MG/ML 1 ML VIAL IVP STA (22:38)
[2018-04-11] MEDS ORDERED: MORPHINE SULFATE 2 MG/ML SYRINGE IVP STA (22:38)
[2018-04-11 22:43] LABS: ALT 25 U/L (21-72); AST 25 U/L (17-59); Albumin 4.1 g/dL (3.5-5.0); Alkaline Phosphatase 61 U/L (38-126); Anion Gap 13 mmol/L; Blood Urea Nitrogen 18 mg/dL (9-20); Calcium 9.3 mg/dL (8.4-10.2); Carbon Dioxide 22 mmol/L (22-30); Chloride 102 mmol/L (98-107); Glucose 135 mg/dL (74-99); Lipase 61 U/L (23-300); Magnesium 1.8 mg/dL (1.6-2.3); Potassium 4.2 mmol/L (3.5-5.1); Sodium 137 mmol/L (137-145); Total Bilirubin 0.5 mg/dL (0.2-1.3); Total Protein 6.8 g/dL (6.3-8.2)
[2018-04-11 22:47] LABS: D-Dimer 0.44 mg/L FEU (<0.60); INR 1.1 (<1.2); Partial Thromboplastin Time 22.1 sec (22.0-30.0); Prothrombin Time 10.5 sec (9.0-12.0)
[2018-04-11 22:51] LABS: Creatine Kinase 63 U/L (55-170)
[2018-04-11 23:05] LABS: Creatine Kinase MB 1.2 ng/mL (0.0-2.4); Troponin I <0.012 ng/mL (0.000-0.034)
--- NOTE | 2018-04-11 23:47 | CT ---
EXAMINATION TYPE: CT abdomen w con DATE OF EXAM: 04/11/2018 COMPARISON: 12/25/2017 HISTORY: LEFT SIDE PAIN AFTER SNEEZING CT DLP: 1201.30 mGycm Automated exposure control for dose reduction was used. TECHNIQUE: Helical acquisition of images was performed from the lung bases through the top of iliac crest to include entire abdomen. CONTRAST: Performed without Oral Contrast and with IV Contrast, patient injected with 100 mL of Isovue 370. FINDINGS: There is some pleural thickening at the left lung base. There is left posterior lateral rib fracture apparently from recent surgery. There is patchy atelectasis and fibrosis at the lung bases. There is no pericardial effusion. Liver shows no focal defect. Gallbladder appears normal. There is no pancreatic mass. Spleen appears normal. There is no adrenal mass. Kidneys show satisfactory contrast opacification. There is no hydro nephrosis. There is no evidence of a bowel obstruction. Appendix appears normal. There is no sign of retroperitoneal adenopathy. There are spondylotic changes in the lumbar spine. I see no bony destruct gopi process. There is a degenerative first-degree L5 spondylolisthesis. IMPRESSION: FIBROTIC CHANGES AND ATELECTASIS AT THE LUNG BASES. NO PNEUMOTHORAX. LEFT LATERAL RIB DEFORMITY CONSI STENT WITH SURGERY. MILD LEFT-SIDED PLEURAL THICKENING. THERE HAS BEEN REMOVAL OF THE DRAINAGE CATHET ER COMPARED TO 12/25/2017. PLEURAL THICKENING IS NOT SIGNIFICANTLY DIFFERENT.
--- NOTE | 2018-04-11 23:51 | CT ---
EXAMINATION TYPE: CT angio chest DATE OF EXAM: 04/11/2018 11:37 PM COMPARISON: 11/30/2017 HISTORY: LEFT SIDE PAIN AFTER SNEEZING CT DLP: 425.70 mGycm Automated exposure control for dose reduction was used. CONTRAST: CTA scan of the thorax is performed with IV Contrast, patient injected with 100 mL of Isovue 370, pul monary embolism protocol. There are 3-D post processed images.. FINDINGS: There is diffuse pulmonary emphysema. There is no pneumothorax. There is coarse interstitial infiltra te in the mid and lower lung hpam consistent with interstitial fibrosis. There is deformity of mult iple left lateral ribs consistent with previous thoracotomy. There is no mediastinal adenopathy. Thor acic aorta shows mild atheromatous change. There is no evidence of aneurysm or dissection. I see no f illing defects in the pulmonary arteries. There are no hilar masses. There are a few bilateral bronch ial lymph nodes up to 1.3 cm. There is spurring in the thoracic spine. IMPRESSION: NO EVIDENCE OF PULMONARY EMBOLISM. PULMONARY INTERSTITIAL FIBROSIS. EMPHYSEMA. PLEURAL AND PULMONARY SCARRING AT THE LUNG BASES WITHOUT A SIGNIFICANT CHANGE COMPARED TO OLD EXAM. THERE ARE RIGHT BRONCHI AL LYMPH NODES THAT ARE SLIGHTLY INCREASED COMPARED TO LAST EXAM.
[2018-04-12 00:26] VITALS: BP 130/87; PULSE 60; RESP 18; TEMP 98.6
== END 2018-04-12 00:30 | disposition home or self-care (01) ==
LOC: EC 21:43
DX: G89.18 Other acute postprocedural pain (principal); R07.9 Chest pain, unspecified; E78.5 Hyperlipidemia, unspecified; J44.9 Chronic obstructive pulmonary disease, unspecified; I10 Essential (primary) hypertension; Z87.438 Personal history of other diseases of male genital organs; Z87.891 Personal history of nicotine dependence; Z79.51 Long term (current) use of inhaled steroids; Z79.899 Other long term (current) drug therapy; Z98.890 Other specified postprocedural states
CPT/HCPCS: 36415; 93005; 85379; 83880; 80053; 82550; 82553; 83690; 83735; 84484; 85025; 85610; 85730; 74160; 71275; 99285; 96374; 96375; 96361 ×2; J1885; J2270; Q9967

== ENCOUNTER → 2018-04-12 | Outpatient (CLI) | payer MEDICARE | END | disposition home or self-care (01) | LOC: RADCTMAIN 07:19 | PROVIDERS: ATTEND Family Medicine | DX: J44.9 Chronic obstructive pulmonary disease, unspecified (principal); J98.4 Other disorders of lung; Z53.9 Procedure and treatment not carried out, unspecified reason; R06.02 Shortness of breath; R07.82 Intercostal pain ==

== ENCOUNTER → 2018-04-30 | Outpatient (CLI) | payer MEDICARE ==
--- NOTE | 2018-04-30 19:00 | PN ---
PROGRESS NOTE This patient was being seen by Dr. Seth regarding obstructive sleep apnea. The patient was diagnosed having severe sleep apnea with an AHI of 58.8. Obstructive events were predominant with some central events and the patient was given CPAP with a pressure of 13 cm of water. I saw this patient regarding his COPD and a herniated left lung in the office a few days back. Today he is [facility] to make further recommendations regarding his CPAP treatment, knowing that his treatment has not been completely successful. The patient tried to use the CPAP; however, feels that the pressure is quite high and at the same time, he is having difficulty tolerating a nose mask. He has chronic sinus drainage and congestion and allergies and he was recently started on Flonase. He started Flonase approximately 24 hours ago. I checked his CPAP unit. The patient is unable to achieve more than 3-1/2 hours of CPAP use per night. His leak factor is at 30 L/minute. His AHI is at 8. He has multiple other medical problems and comorbidities, including hypertension, hyperlipidemia, BPH, COPD which has been severe and the patient had an episode where he coughed during a COPD exacerbation. He herniated his left lung and required repair of a diaphragmatic defect in addition to repair of the chest wall and closure of intercostal muscles. He also is known to have umbilical hernia. Temperature 97.3, pulse 62, respirations 16. Height is 5 feet 8 inches, weight is 198, BMI 32. General appearance is calm, comfortable, no acute distress. Head is atraumatic, normocephalic. Neck is supple. No JVD. No goiter or neck masses. LUNGS: Diminished breath sounds bilaterally. Heart sounds regular rate and rhythm. Normal S1, S2. No S3. No murmurs. ABDOMEN: Soft, nontender. No organomegaly. EXTREMITIES: No edema. No cyanosis or clubbing. IMPRESSION: 1. Sleep apnea, severe, predominantly obstructive, apnea-hypopnea index of 58, currently on CPAP with suboptimal clinical response and tolerability. Current pressure is 13 cm of water. 2. Chronic obstructive pulmonary disease, severe at baseline. 3. Recent thoracic surgery for a herniated left lung and repair of diaphragmatic defect. 4. Hypertension. 5. Hyperlipidemia. 6. Benign prostatic hypertrophy. 7. Umbilical hernia. PLAN: 1. I reduced the CPAP pressure down to 10 cm of water. Keep the patient's CPAP at an automatic mode with a minimum pressure of 5, maximum pressure of 10. 2. Provide this patient Amanda View full-face mask. 3. Add Flonase nose spray. 4. Optimize COPD by the addition of Anoro. 5. See me back in 4 weeks' time for a compliancy recheck and evaluation. One concern is the emergence of central apneas. Patient needs to be monitored very closely. MMODL / IJN: [id number] /
== END | disposition home or self-care (01) ==
LOC: SLEEP 12:55
PROVIDERS: ATTEND Internal Medicine Critical Care Medicine
DX: G47.33 Obstructive sleep apnea (adult) (pediatric) (principal); J44.9 Chronic obstructive pulmonary disease, unspecified; I10 Essential (primary) hypertension; E78.5 Hyperlipidemia, unspecified; N40.0 Benign prostatic hyperplasia without lower urinary tract symptoms; K42.9 Umbilical hernia without obstruction or gangrene; Z99.89 Dependence on other enabling machines and devices

== ENCOUNTER 2018-05-17 21:51 | Emergency (ER) | payer MEDICARE ==
[2018-05-17] MEDS ORDERED: IPRATROPIUM-ALBUTEROL 3 ML NEB INHALATION STA (22:11)
--- NOTE | 2018-05-17 22:20 | ED ---
General Adult HPI - General Chief complaint: Shortness of Breath Stated complaint: diff breathing Time Seen by Provider: 05/17/18 22:11 Source: EMS Mode of arrival: EMS Limitations: no limitations - History of Present Illness Initial comments: Sushant is a 73-year-old male with a history of COPD previously on breathing treatments at home but currently treated with an inhaler. He presents the emergency department today via EMS for evaluation of wheezing and shortness of breath. She reports that he has been in his usual state of health, he was feeling well yesterday when he attended the [address] [place] [address]. He reports that while there he did interact with a lot of livestock and spent time in the [place] with the [place]. He reports that while there he began to feel some wheezing and short of breath. He thought that this was related to the heat, however throughout the night he continued to have shortness of breath and throughout today he noticed that his wheezing was progressively worse. This evening his became concerned and called 911 to take him to the hospital for further evaluation. Patient denies any chest pain, palpitations, diaphoresis, lightheadedness. He reports that he's had decreased appetite today but is revealed this to the wheezing. He has taken his home medications with no improvement. He denies any recent fevers, chills, nausea, vomiting, abdominal pain or change in bowel or bladder habits. He denies any numbness or tingling in his extremities, denies any rashes or easy bruising. - Related Data Home Medications Medication Instructions Recorded Confirmed Lovastatin [Mevacor] 10 mg PO HS 11/18/17 05/17/18 Meclizine [Antivert] 25 mg PO TID 11/18/17 05/17/18 Tamsulosin HCl [Flomax] 0.4 mg PO BID 11/18/17 05/17/18 Albuterol Inhaler [Ventolin Hfa 1 - 2 puff INHALATION RT-Q6H PRN 04/11/18 Inhaler] Cetirizine HCl 10 mg PO DAILY 04/11/18 05/17/18 Chlorhexidine Gluconate [Peridex] 15 ml PO BID PRN 04/11/18 05/17/18 Cholecalciferol [Vitamin D3] 1,000 unit PO DAILY 04/11/18 05/17/18 Flaxseed Oil [[place]-3 Flaxseed Oil] 1,000 mg PO DAILY 04/11/18 05/17/18 Fluticasone Nasal [place] [Flonase 2 spr EA NOSTRIL DAILY 04/11/18 05/17/18 Nasal [place]] Losartan Potassium [Cozaar] 25 mg PO DAILY 04/11/18 05/17/18 Meloxicam 15 mg PO DAILY PRN 04/11/18 05/17/18 Multivitamins, Thera [Multivitamin 1 tab PO DAILY@1200 04/11/18 05/17/18 (formulary)] Ubidecarenone [Co Q-10] 100 mg PO DAILY 04/11/18 05/17/18 Umeclidinium Brm/Vilanterol Tr 1 puff INHALATION RT-DAILY 04/11/18 05/17/18 [Anoro Ellipta 62.5-25 Mcg INH] Azelastine HCl 137 mcg NS DAILY 05/17/18 05/17/18 Budesonide [Pulmicort] 0.5 mg INHALATION RT-BID PRN 05/17/18 05/17/18 HYDROcodone/APAP 5-325MG [[place] 1 tab PO Q6HR PRN 05/17/18 05/17/18 5-325] Ibuprofen [Motrin] 600 mg PO Q8HR PRN 05/17/18 05/17/18 Ipratropium-Albuterol Nebulize 3 ml INHALATION RT-QID PRN 05/17/18 05/17/18 [Duoneb 0.5 mg-3 mg/3 ml Soln] Promethaz-Cod 6.25-10 mg/5 ml 5 ml PO Q6HR PRN 05/17/18 05/17/18 [Phenergan with Codeine] Previous Rx's Medication Instructions Recorded Aspirin 81 mg PO DAILY chew 12/31/17 Metoprolol Tartrate [Lopressor] 25 mg PO BID tab 12/31/17 predniSONE 40 mg PO DAILY 5 Days #10 tab 05/18/18 Allergies Allergy/AdvReac Type Severity Reaction Status Date / Time No Known Allergies Allergy Verified 05/17/18 22:39 Review of Systems ROS Statement: Those systems with pertinent positive or pertinent negative responses have been documented in the HPI. ROS Other: All systems not noted in ROS Statement are negative. Constitutional: Denies: fever ENT: Denies: throat pain Respiratory: Reports: dyspnea, wheezes. Denies: cough Cardiovascular: Denies: chest pain, palpitations Endocrine: Denies: fatigue Gastrointestinal: Denies: abdominal pain, nausea Genitourinary: Denies: urgency, dysuria Musculoskeletal: Denies: back pain Skin: Denies: rash, lesions Neurological: Denies: headache, weakness Psychiatric: Denies: anxiety, depression Hematological/Lymphatic: Denies: easy bleeding, easy bruising Past Medical History Past Medical History: COPD, Hearing Disorder / Deafness, Hyperlipidemia, Hypertension, Prostate Disorder Additional Past Medical History / Comment(s): emphysema, history of menieres disease History of Any Multi-Drug Resistant Organisms: None Reported Past Surgical History: Hernia Repair, Tonsillectomy Additional Past Surgical History / Comment(s): hernia X2, cyst on hand, right foot pin in great toe. Left thoracotomy closure of diaphragmatic hernia with patch, repair of costochondral dislocation with subsequent lung herniation November 22 2017 Past Anesthesia/Blood Transfusion Reactions: No Reported Reaction Past Psychological History: No Psychological Hx Reported Smoking Status: Former smoker Past Alcohol Use History: None Reported Past Drug Use History: None Reported - Past Family History Mother Family Medical History: Dementia Additional Family Medical History / Comment(s): breast cancer Father Family Medical History: No Reported History General Exam Limitations: no limitations General appearance: alert, other (To) Head exam: Present: atraumatic, normocephalic Eye exam: Present: normal appearance, PERRL ENT exam: Present: normal exam Neck exam: Present: normal inspection Respiratory exam: Present: wheezes, accessory muscle use. Absent: respiratory distress, chest wall tenderness Cardiovascular Exam: Present: regular rate, normal rhythm GI/Abdominal exam: Present: soft. Absent: distended Rectal exam: Present: deferred Extremities exam: Present: normal inspection Back exam: Present: normal inspection Neurological exam: Present: alert, oriented X3 Psychiatric exam: Present: normal affect, normal mood Skin exam: Present: warm, dry Course Vital Signs 05/17/18 05/17/18 05/17/18 21:54 22:23 22:31 Pulse Rate 90 85 85 Respiratory 24 Rate Blood Pressure 167/82 O2 Sat by Pulse 94 L Oximetry 05/17/18 23:53 Pulse Rate 82 Respiratory 18 Rate Blood Pressure 115/75 O2 Sat by Pulse 95 Oximetry EKG Findings - EKG Comments: EKG Findings:: EKG at ca to 2157 - rate is 87, rhythm is sinus, a rightward axis , normal intervals, NC is 146, QRS is 102, QTc is 464 there are no acute ST elevations or depressions noted. There is noted to be a PVC. Medical Decision Making - Medical Decision Making The patient was seen and evaluated, was obtained from the patient has is bedside as well as EMS EMS reports that upon their arrival the patient was noted to have audible wheezing and increased respiratory effort - he was given 1 DuoNeb and one albuterol as well as 50 of by mouth prednisone and route to the hospital with significant improvement in his respiratory effort Chest x-ray labs and EKG were ordered EKG is no acute findings - Lab Data Result diagrams: 05/17/18 22:20 05/17/18 22:20 Lab Results 05/17/18 05/17/18 05/17/18 Range/Units 22:20 22:20 22:20 WBC 10.2 (3.8-10.6) k/uL RBC 5.11 (4.30-5.90) m/uL Hgb 15.2 (13.0-17.5) gm/dL Hct 45.8 (39.0-53.0) % MCV 89.6 (80.0-100.0) fL MCH 29.7 (25.0-35.0) pg MCHC 33.1 (31.0-37.0) g/dL RDW 13.7 (11.5-15.5) % Plt Count 301 (150-450) k/uL Neutrophils % 71 % Lymphocytes % 14 % Monocytes % 6 % Eosinophils % 6 % Basophils % 1 % Neutrophils # 7.2 (1.3-7.7) k/uL Lymphocytes # 1.4 (1.0-4.8) k/uL Monocytes # 0.6 (0-1.0) k/uL Eosinophils # 0.6 (0-0.7) k/uL Basophils # 0.1 (0-0.2) k/uL PT (9.0-12.0) sec INR (<1.2) APTT (22.0-30.0) sec Sodium 140 (137-145) mmol/L Potassium 3.7 (3.5-5.1) mmol/L Chloride 107 (98-107) mmol/L Carbon Dioxide 24 (22-30) mmol/L Anion Gap 9 mmol/L BUN 19 (9-20) mg/dL Creatinine 1.00 (0.66-1.25) mg/dL Est GFR (CKD-EPI)AfAm 85 (>60 ml/min/1.73 sqM) Est GFR (CKD-EPI)NonAf 74 (>60 ml/min/1.73 sqM) Glucose 114 H (74-99) mg/dL Calcium 9.1 (8.4-10.2) mg/dL Magnesium 1.9 (1.6-2.3) mg/dL Troponin I (0.000-0.034) ng/mL NT-Pro-B Natriuret Pep 375 pg/mL 05/17/18 05/17/18 Range/Units 22:20 22:20 WBC (3.8-10.6) k/uL RBC (4.30-5.90) m/uL Hgb (13.0-17.5) gm/dL Hct (39.0-53.0) % MCV (80.0-100.0) fL MCH (25.0-35.0) pg MCHC (31.0-37.0) g/dL RDW (11.5-15.5) % Plt Count (150-450) k/uL Neutrophils % % Lymphocytes % % Monocytes % % Eosinophils % % Basophils % % Neutrophils # (1.3-7.7) k/uL Lymphocytes # (1.0-4.8) k/uL Monocytes # (0-1.0) k/uL Eosinophils # (0-0.7) k/uL Basophils # (0-0.2) k/uL PT 10.1 (9.0-12.0) sec INR 1.0 (<1.2) APTT 23.5 (22.0-30.0) sec Sodium (137-145) mmol/L Potassium (3.5-5.1) mmol/L Chloride (98-107) mmol/L Carbon Dioxide (22-30) mmol/L Anion Gap mmol/L BUN (9-20) mg/dL Creatinine (0.66-1.25) mg/dL Est GFR (CKD-EPI)AfAm (>60 ml/min/1.73 sqM) Est GFR (CKD-EPI)NonAf (>60 ml/min/1.73 sqM) Glucose (74-99) mg/dL Calcium (8.4-10.2) mg/dL Magnesium (1.6-2.3) mg/dL Troponin I <0.012 (0.000-0.034) ng/mL NT-Pro-B Natriuret Pep pg/mL Disposition Clinical Impression: COPD (chronic obstructive pulmonary disease) Disposition: HOME SELF-CARE Condition: Good Instructions: Chronic Cough (ED), Chronic Bronchitis (ED), Bronchospasm (ED) Prescriptions: predniSONE 40 mg PO DAILY 5 Days #10 tab Is patient prescribed a controlled substance at d/c from ED?: No Referrals: Quinton Gary DO [Primary Care Provider] - 1-2 days Time of Disposition: 00:52
[2018-05-17 22:29] LABS: Basophils # (A) 0.1 k/uL (0-0.2); Basophils % (A) 1 %; Eosinophils # (A) 0.6 k/uL (0-0.7); Eosinophils % (A) 6 %; HCT 45.8 % (39.0-53.0); HGB 15.2 gm/dL (13.0-17.5); Lymphocytes # (A) 1.4 k/uL (1.0-4.8); Lymphocytes % (A) 14 %; MCH 29.7 pg (25.0-35.0); MCHC 33.1 g/dL (31.0-37.0); MCV 89.6 fL (80.0-100.0); Mean Platelet Volume 6.4; Monocytes # (A) 0.6 k/uL (0-1.0); Monocytes % (A) 6 %; Neutrophils # (A) 7.2 k/uL (1.3-7.7); Neutrophils % (A) 71 %; Platelet Count 301 k/uL (150-450); RBC 5.11 m/uL (4.30-5.90); RDW 13.7 % (11.5-15.5); WBC 10.2 k/uL (3.8-10.6)
[2018-05-17 22:37] LABS: Partial Thromboplastin Time 23.5 sec (22.0-30.0); Prothrombin Time 10.1 sec (9.0-12.0)
[2018-05-17 22:46] LABS: Calcium 9.1 mg/dL (8.4-10.2); Magnesium 1.9 mg/dL (1.6-2.3); Potassium 3.7 mmol/L (3.5-5.1)
--- NOTE | 2018-05-17 23:46 | XR ---
EXAMINATION TYPE: XR chest 2V DATE OF EXAM: 05/17/2018 COMPARISON: 12/29/2017 HISTORY: Emphysema TECHNIQUE: Frontal and lateral views of the chest are obtained. FINDINGS: Heart and mediastinum are normal. There is some coarsening of interstitial pulmonary [place]. There is no heart failure. There is no pleural effusion. Bony thorax is intact. IMPRESSION: Normal heart. Mild pulmonary fibrotic changes. There is improved aeration of the left lo wer lobe compared to old exam.
[2018-05-17 23:54] VITALS: RESP 18
[2018-05-17] MEDS ORDERED: ACETAMINOPHEN TAB 325 MG TAB PO STA (23:56)
[2018-05-18 01:09] VITALS: BP 132/77; PULSE 79; TEMP 98.3
== END 2018-05-18 01:09 | disposition home or self-care (01) ==
LOC: EC 21:51
DX: J44.9 Chronic obstructive pulmonary disease, unspecified (principal); E78.5 Hyperlipidemia, unspecified; I10 Essential (primary) hypertension; Z87.438 Personal history of other diseases of male genital organs; Z87.891 Personal history of nicotine dependence; Z79.51 Long term (current) use of inhaled steroids; Z79.899 Other long term (current) drug therapy
CPT/HCPCS: 36415; 71046; 80048; 83735; 83880; 84484; 85025; 85610; 85730; 93005; 94640; 99285

== ENCOUNTER → 2018-05-28 | Outpatient (CLI) | payer MEDICARE ==
--- NOTE | 2018-05-28 19:38 | PN ---
PROGRESS NOTE Sushant is 73 and is coming to see me in followup regarding his BENEDICT treatment. As mentioned earlier, the patient was diagnosed by Dr. Seth to have severe BENEDICT with an AHI of 58.8. He was given CPAP with a pressure of 15 cm of water. I initially met this patient on 04/30/2018 in the office and I was told that the patient was unable to tolerate the higher CPAP pressure. I kept him on CPAP therapy; however, I had switched him to an automatic mode with a maximum pressure of 10 and a minimum pressure of 5. I also gave him an Amanda View full-face mask after trying different mask interfaces. On today's evaluation, treatment remains unsuccessful. He mentions that he has excessive nasal congestion and drainage and this has been the main problem preventing him from using the CPAP. He feels like he is suffocating while on CPAP and he is unable to keep the mask on. He has chronic sinus drainage and chronic allergies and he was seen by Dr. Haines from ENT. I started him on Flonase and he was switched later on to a different nose spray. He tells me that the nose spray helps; however, it has not been absolutely successful, as the patient continued to have nasal congestion and drainage. He is doing also allergy workup. It seems that the treatment itself will fail, as the patient is unable to demonstrate adequate CPAP use. Based on the compliancy data, the patient is unable to meet insurance guidelines effectively. Compliancy data is extremely poor. I at the same time treat this patient's COPD. Note that he has a history of herniated lung because of vigorous coughing which is partly related to COPD and partly related to his allergies and postnasal drainage. COPD is stable currently on Anoro; nevertheless, the CPAP therapy has failed for now and the patient may be looking for alternative treatments. REVIEW OF SYSTEMS: A 12-point review of system was done. Positive findings are mentioned above in history of present illness. CURRENT VITALS: BP is 104/66, pulse 88, respirations 16, temperature 98.8, saturation 93% on room air. Weight is 199, Dennison score is 21. GENERAL APPEARANCE: Calm comfortable. Head is atraumatic, normocephalic. Neck is short, supple. Crowding of posterior pharynx is present. There is no goiter or neck mass. LUNGS: Clear to auscultation. Diminished in lung bases. HEART: Sounds are regular rate and rhythm. Normal S1, S2. No S3. No murmurs. ABDOMEN: Soft, nontender. No organomegaly. EXTREMITIES: No edema. No cyanosis or clubbing. IMPRESSION: 1. Sleep apnea, severe, predominantly obstructive with an apnea-hypopnea index of 258, unable to tolerate CPAP at various pressures, including the APAP remote. 2. Chronic allergic rhinitis. 3. Chronic postnasal drainage with secondary cough. 4. Chronic obstructive pulmonary disease. 5. Previous history of a herniated lung requiring repair of a diaphragmatic defect. 6. Hypertension. 7. Hyperlipidemia. 8. Benign prostatic hypertrophy. 9. Umbilical hernia. PLAN: This patient will not be able to continue CPAP therapy. His compliance data is poor and he has not met insurance guidelines. I asked him to contact the DME and return his CPAP machine back. I am hoping that down the road, he will be able to work with ENT and control his symptoms of rhinitis. I am also considering referring this patient to [facility] to look for surgical options for sleep apnea treatment, knowing that he has failed CPAP therapy. Another alternative would be the Inspire sleep apnea device, which is an implantable unit which which delivers mild stimulation to delong airway muscles and keeps the airway open and reduces the severity of obstructive sleep apnea. This is something to be looked for at a later stage. For now, the patient will be seen by ENT. I will see him back in the office for COPD and I will also continue monitoring his obstructive sleep apnea, which will be left untreated at this point in time. MMODL / IJN: [id number] /
== END | disposition home or self-care (01) ==
LOC: SLEEP 15:37
PROVIDERS: ATTEND Internal Medicine Critical Care Medicine
DX: G47.33 Obstructive sleep apnea (adult) (pediatric) (principal); J30.89 Other allergic rhinitis; J34.89 Other specified disorders of nose and nasal sinuses; R05 Cough; J44.9 Chronic obstructive pulmonary disease, unspecified; J98.4 Other disorders of lung; I10 Essential (primary) hypertension; E78.5 Hyperlipidemia, unspecified; N40.0 Benign prostatic hyperplasia without lower urinary tract symptoms; K42.9 Umbilical hernia without obstruction or gangrene; Z99.89 Dependence on other enabling machines and devices

== ENCOUNTER → 2018-09-09 | Outpatient (CLI) | payer MEDICARE ==
--- NOTE | 2018-09-10 10:30 | XR ---
EXAMINATION TYPE: XR chest 2V DATE OF EXAM: 09/09/2018 COMPARISON: Prior chest x-ray 05/17/2018 HISTORY: COPD, cough and shortness of breath TECHNIQUE: Frontal and lateral views of the chest are obtained. FINDINGS: There is no focal air space opacity, pleural effusion, or pneumothorax seen. The cardiac silhouette size is within normal limits. The osseous structures are stable, chest wall deformity al starr the left lateral chest is unchanged, local pleural thickening noted, old rib fractures. There is underlying emphysematous change, interstitial changes are present at the lung bases. Scarring at the bases again noted. IMPRESSION: No acute cardiopulmonary process. Interstitial lung disease, emphysema
== END | disposition home or self-care (01) ==
LOC: RADXRYALE 15:42
PROVIDERS: ATTEND Physician Assistant Medical
DX: J43.9 Emphysema, unspecified (principal); J84.9 Interstitial pulmonary disease, unspecified
CPT/HCPCS: 71046

== ENCOUNTER → 2018-10-25 | Outpatient (CLI) | payer MEDICARE ==
--- NOTE | 2018-10-25 13:02 | XR ---
Lumbosacral spine HISTORY: Back pain, trauma 5 views of the lumbosacral spine submitted and correlated prior exam 06/20/2013 Patient scoliosis is again noted. There is multilevel spondylosis as on prior. Multilevel loss of dis c height is also present. Anterolisthesis grade 1 at L4-5, retrolisthesis grade 1 L3-4 present. Scler osis present in the posterior elements of the lower lumbar spine. Bone mineralization is reduced. Keeley tebral height is maintained. There are vascular calcifications noted incidentally. IMPRESSION: No acute fracture or subluxation. Consider MRI for better evaluation as indicated. Degene rative disc disease and facet arthropathy, osteopenia.
== END | disposition home or self-care (01) ==
LOC: RADXRYALE 08:59
PROVIDERS: ATTEND Physician Assistant Medical
DX: M51.36 Other intervertebral disc degeneration, lumbar region (principal); M46.86 Other specified inflammatory spondylopathies, lumbar region; M85.88 Other specified disorders of bone density and structure, other site
CPT/HCPCS: 72110

== ENCOUNTER 2018-10-29 12:06 | Emergency (ER) | payer MEDICARE ==
[2018-10-29 12:30] VITALS: TEMP 98.2
[2018-10-29] MEDS ORDERED: MORPHINE SULFATE 4 MG/ML SYRINGE IM STA (13:41)
--- NOTE | 2018-10-29 14:08 | XR ---
EXAMINATION TYPE: XR femur LT DATE OF EXAM: 10/29/2018 COMPARISON: NONE HISTORY: Left hip pain TECHNIQUE: 4 views FINDINGS: There is vascular calcification. Hip joint space is fairly normal. There is no fracture nor dislocation. Knee joint is intact. IMPRESSION: No acute abnormality of the left femur. No fracture.
--- NOTE | 2018-10-29 14:39 | ED ---
General Adult HPI - General Chief complaint: Extremity Injury, Lower Stated complaint: fall, lt hip pain Time Seen by Provider: 10/29/18 13:28 Source: patient, RN notes reviewed, old records reviewed Mode of arrival: ambulatory Limitations: no limitations - History of Present Illness Initial comments: 73-year-old male presenting status post fall with pain in the left hip and thigh pain as well as ecchymosis in the thigh. Patient's fall occurred one week ago. He's had increasing pain and bruising in the left thigh. Patient states he fell onto his right side. Patient has had no head or neck trauma. He is not on any anticoagulation. Denies back pain. Denies abdominal pain. Pain is isolated to the left lateral hip. Patient has pain worse with ambulation. - Related Data Home Medications Medication Instructions Recorded Confirmed Lovastatin [Mevacor] 10 mg PO HS 11/18/17 05/17/18 Meclizine [Antivert] 25 mg PO TID 11/18/17 05/17/18 Tamsulosin HCl [Flomax] 0.4 mg PO BID 11/18/17 05/17/18 Albuterol Inhaler [Ventolin Hfa 1 - 2 puff INHALATION RT-Q6H PRN 04/11/18 Inhaler] Cetirizine HCl 10 mg PO DAILY 04/11/18 05/17/18 Chlorhexidine Gluconate [Peridex] 15 ml PO BID PRN 04/11/18 05/17/18 Cholecalciferol [Vitamin D3] 1,000 unit PO DAILY 04/11/18 05/17/18 Flaxseed Oil [[place]-3 Flaxseed Oil] 1,000 mg PO DAILY 04/11/18 05/17/18 Fluticasone Nasal [place] [Flonase 2 spr EA NOSTRIL DAILY 04/11/18 05/17/18 Nasal [place]] Losartan Potassium [Cozaar] 25 mg PO DAILY 04/11/18 05/17/18 Meloxicam 15 mg PO DAILY PRN 04/11/18 05/17/18 Multivitamins, Thera [Multivitamin 1 tab PO DAILY@1200 04/11/18 05/17/18 (formulary)] Ubidecarenone [Co Q-10] 100 mg PO DAILY 04/11/18 05/17/18 Umeclidinium Brm/Vilanterol Tr 1 puff INHALATION RT-DAILY 04/11/18 05/17/18 [Anoro Ellipta 62.5-25 Mcg INH] Azelastine HCl 137 mcg NS DAILY 05/17/18 05/17/18 Budesonide [Pulmicort] 0.5 mg INHALATION RT-BID PRN 05/17/18 05/17/18 HYDROcodone/APAP 5-325MG [[place] 1 tab PO Q6HR PRN 05/17/18 05/17/18 5-325] Ibuprofen [Motrin] 600 mg PO Q8HR PRN 05/17/18 05/17/18 Ipratropium-Albuterol Nebulize 3 ml INHALATION RT-QID PRN 05/17/18 05/17/18 [Duoneb 0.5 mg-3 mg/3 ml Soln] Promethaz-Cod 6.25-10 mg/5 ml 5 ml PO Q6HR PRN 05/17/18 05/17/18 [Phenergan with Codeine] Previous Rx's Medication Instructions Recorded Aspirin 81 mg PO DAILY chew 12/31/17 Metoprolol Tartrate [Lopressor] 25 mg PO BID tab 12/31/17 predniSONE 40 mg PO DAILY 5 Days #10 tab 05/18/18 HYDROcodone/APAP 5-325MG [[place] 1 tab PO Q6HR PRN #12 tab 10/29/18 5-325] Allergies Allergy/AdvReac Type Severity Reaction Status Date / Time No Known Allergies Allergy Verified 10/29/18 12:28 Review of Systems ROS Statement: Those systems with pertinent positive or pertinent negative responses have been documented in the HPI. ROS Other: All systems not noted in ROS Statement are negative. Past Medical History Past Medical History: COPD, Hearing Disorder / Deafness, Hyperlipidemia, Hypertension, Prostate Disorder Additional Past Medical History / Comment(s): emphysema, history of menieres disease History of Any Multi-Drug Resistant Organisms: None Reported Past Surgical History: Hernia Repair, Tonsillectomy Additional Past Surgical History / Comment(s): hernia X2, cyst on hand, right foot pin in great toe. Left thoracotomy closure of diaphragmatic hernia with patch, repair of costochondral dislocation with subsequent lung herniation November 22 2017 Past Anesthesia/Blood Transfusion Reactions: No Reported Reaction Past Psychological History: No Psychological Hx Reported Smoking Status: Former smoker Past Alcohol Use History: None Reported Past Drug Use History: None Reported - Past Family History Mother Family Medical History: Dementia Additional Family Medical History / Comment(s): breast cancer Father Family Medical History: No Reported History General Exam Limitations: no limitations General appearance: alert, in no apparent distress Head exam: Present: atraumatic, normocephalic Eye exam: Present: normal appearance, PERRL ENT exam: Present: normal exam Neck exam: Present: normal inspection, full ROM. Absent: tenderness, meningismus Respiratory exam: Present: normal lung sounds bilaterally. Absent: respiratory distress, wheezes Cardiovascular Exam: Present: regular rate, normal rhythm GI/Abdominal exam: Present: soft. Absent: distended, tenderness, guarding, rebound exam: Present: normal inspection. Absent: testicular tenderness, scrotal swelling Extremities exam: Present: tenderness, other (Severe ecchymosis, from the hip to the knee lateral left thigh, tenderness to palpation lateral left thigh, distal pulses intact, 2+. There was some swelling in the calf as well. Range of motion at the hip is normal. Range of motion at the knee normal.) Back exam: Present: normal inspection, full ROM. Absent: tenderness, CVA tenderness (R), CVA tenderness (L) Neurological exam: Present: alert, oriented X3, CN II-XII intact. Absent: motor sensory deficit Psychiatric exam: Present: normal affect, normal mood Skin exam: Present: other (Ecchymosis from left lateral hip to lateral knee) Course Vital Signs 10/29/18 12:24 Temperature 98.2 F Pulse Rate 63 Respiratory 20 Rate Blood Pressure 148/84 O2 Sat by Pulse 98 Oximetry Medical Decision Making - Medical Decision Making 74-year-old male fall one week ago with pain and ecchymosis in the left hip. This is extensive on exam, imaging is obtained, x-ray of the femur is negative for fracture dislocation, ultrasound obtained which is negative for DVT. Did CT the hip, femur, and lumbar spine, no acute bony abnormality, there is a 5 cm hematoma on initial tuberosity, no intramuscular hematoma. CT lumbar spine negative for fracture dislocation, there is arthritic changes with mild stenosis , no acute findings. She was given morphine, reevaluation is feeling better. He will be given [place] for pain, follow-up with orthopedics. - Lab Data Result diagrams: 10/29/18 14:20 10/29/18 14:20 Lab Results 10/29/18 10/29/18 10/29/18 Range/Units 13:55 14:20 14:20 WBC 12.7 H (3.8-10.6) k/uL RBC 4.55 (4.30-5.90) m/uL Hgb 13.6 (13.0-17.5) gm/dL Hct 42.6 (39.0-53.0) % MCV 93.7 (80.0-100.0) fL MCH 29.8 (25.0-35.0) pg MCHC 31.8 (31.0-37.0) g/dL RDW 13.3 (11.5-15.5) % Plt Count 430 (150-450) k/uL Neutrophils % 88 % Lymphocytes % 6 % Monocytes % 4 % Eosinophils % 1 % Basophils % 0 % Neutrophils # 11.3 H (1.3-7.7) k/uL Lymphocytes # 0.7 L (1.0-4.8) k/uL Monocytes # 0.5 (0-1.0) k/uL Eosinophils # 0.1 (0-0.7) k/uL Basophils # 0.1 (0-0.2) k/uL PT (9.0-12.0) sec INR (<1.2) APTT (22.0-30.0) sec Sodium 137 (137-145) mmol/L Potassium 4.6 (3.5-5.1) mmol/L Chloride 103 (98-107) mmol/L Carbon Dioxide 25 (22-30) mmol/L Anion Gap 9 mmol/L BUN 19 (9-20) mg/dL Creatinine 0.84 (0.66-1.25) mg/dL Est GFR (CKD-EPI)AfAm >90 (>60 ml/min/1.73 sqM) Est GFR (CKD-EPI)NonAf 86 (>60 ml/min/1.73 sqM) Glucose 127 H (74-99) mg/dL Calcium 10.0 (8.4-10.2) mg/dL Total Bilirubin 0.6 (0.2-1.3) mg/dL AST 43 (17-59) U/L ALT 45 (21-72) U/L Alkaline Phosphatase 52 (38-126) U/L Total Protein 6.6 (6.3-8.2) g/dL Albumin 4.0 (3.5-5.0) g/dL Urine Color Colorless Urine Appearance Clear (Clear) Urine pH 6.0 (5.0-8.0) Ur Specific [place] 1.004 (1.001-1.035) Urine Protein Negative (Negative) Urine Glucose (UA) Negative (Negative) Urine Ketones Negative (Negative) Urine Blood Negative (Negative) Urine Nitrite Negative (Negative) Urine Bilirubin Negative (Negative) Urine Urobilinogen <2.0 (<2.0) mg/dL Ur Leukocyte Esterase Negative (Negative) 10/29/18 Range/Units 14:20 WBC (3.8-10.6) k/uL RBC (4.30-5.90) m/uL Hgb (13.0-17.5) gm/dL Hct (39.0-53.0) % MCV (80.0-100.0) fL MCH (25.0-35.0) pg MCHC (31.0-37.0) g/dL RDW (11.5-15.5) % Plt Count (150-450) k/uL Neutrophils % % Lymphocytes % % Monocytes % % Eosinophils % % Basophils % % Neutrophils # (1.3-7.7) k/uL Lymphocytes # (1.0-4.8) k/uL Monocytes # (0-1.0) k/uL Eosinophils # (0-0.7) k/uL Basophils # (0-0.2) k/uL PT 9.7 (9.0-12.0) sec INR 0.9 (<1.2) APTT 22.5 (22.0-30.0) sec Sodium (137-145) mmol/L Potassium (3.5-5.1) mmol/L Chloride (98-107) mmol/L Carbon Dioxide (22-30) mmol/L Anion Gap mmol/L BUN (9-20) mg/dL Creatinine (0.66-1.25) mg/dL Est GFR (CKD-EPI)AfAm (>60 ml/min/1.73 sqM) Est GFR (CKD-EPI)NonAf (>60 ml/min/1.73 sqM) Glucose (74-99) mg/dL Calcium (8.4-10.2) mg/dL Total Bilirubin (0.2-1.3) mg/dL AST (17-59) U/L ALT (21-72) U/L Alkaline Phosphatase (38-126) U/L Total Protein (6.3-8.2) g/dL Albumin (3.5-5.0) g/dL Urine Color Urine Appearance (Clear) Urine pH (5.0-8.0) Ur Specific [place] (1.001-1.035) Urine Protein (Negative) Urine Glucose (UA) (Negative) Urine Ketones (Negative) Urine Blood (Negative) Urine Nitrite (Negative) Urine Bilirubin (Negative) Urine Urobilinogen (<2.0) mg/dL Ur Leukocyte Esterase (Negative) Disposition Clinical Impression: Hematoma, Contusion, hip Disposition: HOME SELF-CARE Condition: Fair Instructions: Hematoma (ED), Contusion in Adults (ED) Prescriptions: HYDROcodone/APAP 5-325MG [[place] 5-325] 1 tab PO Q6HR PRN #12 tab PRN Reason: Pain Is patient prescribed a controlled substance at d/c from ED?: No Referrals: Quinton Gary DO [Primary Care Provider] - 1-2 days Quinton Villalobos DO [Doctor of Osteopathic Medicine] - 1-2 days Time of Disposition: 16:58
--- NOTE | 2018-10-29 14:59 | US ---
EXAMINATION TYPE: US venous doppler duplex LE LT DATE OF EXAM: 10/29/2018 2:34 PM COMPARISON: NONE CLINICAL HISTORY: Pain. Left leg pain fell. SIDE PERFORMED: Left TECHNIQUE: The lower extremity deep venous system is examined utilizing real time linear array sonog donell with graded compression, doppler sonography and color-flow sonography. VESSELS IMAGED: External Iliac Vein (EIV) Common Femoral Vein Deep Femoral Vein Greater Saphenous Vein * Femoral Vein Popliteal Vein Small Saphenous Vein * Proximal Calf Veins (* superficial vessels Left Leg: Negative for DVT No evidence of DVT left leg. IMPRESSION: Normal exam. No evidence of deep venous thrombosis in the left leg.
[2018-10-29 15:11] LABS: Appearance,Urine Clear (Clear); Bilirubin,Urine Negative (Negative); Blood,Urine Negative (Negative); Color,Urine Colorless; Glucose,Urine (UA) Negative (Negative); Ketones,Urine Negative (Negative); Leukocyte Esterase,Urine Negative (Negative); Nitrite,Urine Negative (Negative); Protein,Urine Negative (Negative); Specific Gravity,Urine 1.004 (1.001-1.035); Urobilinogen,Urine <2.0 mg/dL (<2.0)
[2018-10-29 15:20] LABS: INR 0.9 (<1.2); Partial Thromboplastin Time 22.5 sec (22.0-30.0); Prothrombin Time 9.7 sec (9.0-12.0)
[2018-10-29 15:22] LABS: ALT 45 U/L (21-72); AST 43 U/L (17-59); Alkaline Phosphatase 52 U/L (38-126); Anion Gap 9 mmol/L; Basophils # (A) 0.1 k/uL (0-0.2); Basophils % (A) 0 %; Blood Urea Nitrogen 19 mg/dL (9-20); Carbon Dioxide 25 mmol/L (22-30); Chloride 103 mmol/L (98-107); Eosinophils # (A) 0.1 k/uL (0-0.7); Eosinophils % (A) 1 %; Glucose 127 mg/dL (74-99); HCT 42.6 % (39.0-53.0); HGB 13.6 gm/dL (13.0-17.5); Lymphocytes # (A) 0.7 k/uL (1.0-4.8); Lymphocytes % (A) 6 %; MCH 29.8 pg (25.0-35.0); MCHC 31.8 g/dL (31.0-37.0); MCV 93.7 fL (80.0-100.0); Mean Platelet Volume 6.2; Monocytes # (A) 0.5 k/uL (0-1.0); Monocytes % (A) 4 %; Neutrophils # (A) 11.3 k/uL (1.3-7.7); Neutrophils % (A) 88 %; Platelet Count 430 k/uL (150-450); Potassium 4.6 mmol/L (3.5-5.1); RBC 4.55 m/uL (4.30-5.90); RDW 13.3 % (11.5-15.5); Sodium 137 mmol/L (137-145); Total Bilirubin 0.6 mg/dL (0.2-1.3); Total Protein 6.6 g/dL (6.3-8.2); WBC 12.7 k/uL (3.8-10.6)
--- NOTE | 2018-10-29 15:45 | CT ---
EXAMINATION TYPE: CT lumbar spine wo con DATE OF EXAM: 10/29/2018 3:33 PM COMPARISON: None HISTORY: Pt fell Sunday. Pain in LT hip radiating back of femur to knee. CT DLP: 1299.6 combined mGycm Automated exposure control for dose reduction was used. There is 5 mm anterior subluxation of L4 in relation L5. There is no spondylolysis. There is disc spa ce narrowing at L3-4 L4-5 with vacuum disc. There is no compression fracture. There is hypertrophic a nterior spurring throughout the lumbar spine and lower thoracic spine. There is hypertrophic facet ar thropathy in the lumbar spine mainly at L4-5 L5-S1. There is no lumbar paraspinal mass. There is a mi ld relative spinal stenosis at L4-5 due to subluxation and facet arthropathy. The sacroiliac joints a re intact. There are numerous sigmoid diverticula. IMPRESSION: There is a degenerative first-degree L4-5 spondylolisthesis. Mild relative spinal stenosis at L4-5. N o fracture. No significant change compared to CT abdomen of 04/11/2018. No fracture.
--- NOTE | 2018-10-29 15:51 | CT ---
EXAMINATION TYPE: CT hip LT wo con DATE OF EXAM: 10/29/2018 COMPARISON: None HISTORY: Pt fell Sunday. Pain in LT hip radiating back of femur to knee. CT DLP: 1299.6 combined mGycm Automated exposure control for dose reduction was used. FINDINGS: Multiple axial sections were obtained from the mid ileum to the mid shaft of the femur with no contra st. The acetabulum is intact. I see no focal bone destruction. Proximal femur is intact. There is no evid ence of a fracture. There is minimal acetabular spurring. There is sigmoid diverticulosis. There is small inguinal hernia that contains sigmoid colon. I see no sign of a bowel obstruction. There is approximate 5 x 3 cm complex mass at the inferior aspect of the ischial tubercle consistent with a hematoma. Ischial tubercle appears intact. The left pubic rami appear intact. There is minimal subcutaneous edema over the lateral aspect of the left hip. IMPRESSION: NO FRACTURE SEEN. SMALL HEMATOMA AT THE LEFT ISCHIAL TUBERCLE. THERE IS LEFT INGUINAL HERNIA THAT CONTAINS SIGMOID COLON AND APPEARS INCREASED SLIGHTLY COMPARED TO OLD CT SCAN OF 12/25/2016.
--- NOTE | 2018-10-29 16:20 | CT ---
EXAMINATION TYPE: CT femur LT wo con DATE OF EXAM: 10/29/2018 COMPARISON: Left hip pain HISTORY: Pt fell Sunday. Pain in LT hip radiating back of femur to knee. CT DLP: 1299.6 combined mGycm Automated exposure control for dose reduction was used. FINDINGS: Multiple axial sections were obtained from the acetabulum to the distal femur condyles with no contra st. The hip joint is intact. There is minor acetabular spurring. I see no evidence of femoral fracture. T here is vascular calcification. There is a 5 cm mixed density mass at the left ischial tubercle consi stent with hematoma. I see no evidence of a intramuscular hematoma. The knee joint appears intact wit hout evidence of joint effusion. Knee joint spaces are fairly normal. IMPRESSION: NO EVIDENCE OF FEMORAL FRACTURE.
[2018-10-29 17:26] VITALS: BP 140/65; PULSE 65; RESP 16
== END 2018-10-29 17:00 | disposition home or self-care (01) ==
LOC: EC 12:06
DX: M79.605 Pain in left leg (principal); S70.02XA Contusion of left hip, initial encounter; M46.96 Unspecified inflammatory spondylopathy, lumbar region; M48.061 Spinal stenosis, lumbar region without neurogenic claudication; J44.9 Chronic obstructive pulmonary disease, unspecified; E78.5 Hyperlipidemia, unspecified; I10 Essential (primary) hypertension; Z87.438 Personal history of other diseases of male genital organs; Z87.891 Personal history of nicotine dependence; Z79.899 Other long term (current) drug therapy; W19.XXXA Unspecified fall, initial encounter
CPT/HCPCS: 99284 ×2; 96372 ×2; 51798; 36415; 80053; 85025; 85610; 85730; 81003; 73552; 93971; 72131; 73700 ×2; J2270

== ENCOUNTER → 2018-11-14 | Outpatient (CLI) | payer MEDICARE ==
--- NOTE | 2018-11-14 12:54 | MR ---
MR left hip HISTORY: Left hip pain, history of trauma Multiplanar multisequence imaging through the pelvis with small [id number] images through the left hip, correlation to CT left hip 10/29/2017 Degenerative disc changes are noted in the visualized spine. There is fluid signal present along the iliotibial band on the right measuring approximately 6.4 x 1.5 x 2.5 cm. There is T2 signal noted the insertion of the gluteal tendons on the greater tuberosity greater on the left, correlate for possib le partial tear or strain versus posttraumatic injury. Additionally the origin of the hamstring muscu lature shows disc reduction, displacement from the initial tuberosity, there is associated fluid sign al. Bone marrow signal is relatively maintained, mild osteoarthritic changes present within the hip, difficult to exclude a labral tear. There is no evident fracture or dislocation. There is no joint ef fusion. The prostate is enlarged. Urinary bladder shows a thickened wall presumably due to chronic bladder ou tlet obstruction. Diverticular change in the sigmoid colon. IMPRESSION: Avulsion of the hamstring musculature conjoined tendon on the left. Additional findings a ann.
== END | disposition home or self-care (01) ==
LOC: RADMRIMAIN 10:21
PROVIDERS: ATTEND Family Medicine
DX: M16.12 Unilateral primary osteoarthritis, left hip (principal); R58 Hemorrhage, not elsewhere classified

== ENCOUNTER 2018-12-13 15:21 | Emergency (ER) | payer MEDICARE ==
[2018-12-13 15:38] VITALS: PULSE 81; RESP 18
[2018-12-13] MEDS ORDERED: KETOROLAC 30 MG/ML 1 ML VIAL IVP STA (16:07)
--- NOTE | 2018-12-13 16:08 | ED ---
General Adult HPI - General Chief complaint: Neck Pain/Injury Stated complaint: neck pain Time Seen by Provider: 12/13/18 15:25 Source: patient, RN notes reviewed Mode of arrival: EMS Limitations: no limitations - History of Present Illness Initial comments: 73-year-old male with a past medical history of COPD, hyperlipidemia, hypertension presents to the emergency department for a chief of left-sided neck pain. Patient states this started about one week ago. Patient states that today he started to have pain when he bought a new pillow the night before. Patient states he had similar symptoms 2 years ago that resolved after he saw a chiropractor. Patient states that since this helped last time he went to see the chiropractor this time when the pain started. Patient states he saw them today and had a manipulation done. Patient states he felt significantly better afterwards. However after he went home and took a nap when he woke up he had worsening pain. Patient denies headache. Patient denies any posterior neck pain. Patient states pain is worsened with movement or when palpating the neck. Patient has no other complaints at this time including shortness of breath , chest pain, abdominal pain, nausea or vomiting, headache, or visual changes. - Related Data Home Medications Medication Instructions Recorded Confirmed Meclizine [Antivert] 25 mg PO TID 11/18/17 12/13/18 Tamsulosin HCl [Flomax] 0.4 mg PO BID 11/18/17 12/13/18 Albuterol Inhaler [Ventolin Hfa 1 - 2 puff INHALATION RT-Q6H PRN 04/11/18 Inhaler] Chlorhexidine Gluconate [Peridex] 15 ml PO BID PRN 04/11/18 12/13/18 Cholecalciferol [Vitamin D3] 1,000 unit PO DAILY 04/11/18 12/13/18 Flaxseed Oil [Naylor-3 Flaxseed Oil] 1,000 mg PO DAILY 04/11/18 12/13/18 Losartan Potassium [Cozaar] 25 mg PO DAILY 04/11/18 12/13/18 Multivitamins, Thera [Multivitamin 1 tab PO DAILY@1200 04/11/18 12/13/18 (formulary)] Umeclidinium Brm/Vilanterol Tr 1 puff INHALATION RT-DAILY 04/11/18 12/13/18 [Anoro Ellipta 62.5-25 Mcg INH] Azelastine HCl 137 mcg NS DAILY 05/17/18 12/13/18 HYDROcodone/APAP 5-325MG [[place] 1 tab PO Q6HR PRN 05/17/18 12/13/18 5-325] Ibuprofen [Motrin] 600 mg PO Q8HR PRN 05/17/18 12/13/18 Ipratropium-Albuterol Nebulize 3 ml INHALATION RT-QID PRN 05/17/18 12/13/18 [Duoneb 0.5 mg-3 mg/3 ml Soln] Fexofenadine HCl [Melody Allergy] 180 mg PO DAILY 12/13/18 12/13/18 Lovastatin [Mevacor] 20 mg PO HS 12/13/18 12/13/18 predniSONE 10 mg PO Q48H 12/13/18 12/13/18 Previous Rx's Medication Instructions Recorded Aspirin 81 mg PO DAILY chew 12/31/17 Metoprolol Tartrate [Lopressor] 25 mg PO BID tab 12/31/17 HYDROcodone/APAP 5-325MG [[place] 1 tab PO Q6HR PRN #12 tab 12/13/18 5-325] Allergies Allergy/AdvReac Type Severity Reaction Status Date / Time No Known Allergies Allergy Verified 12/13/18 16:15 Review of Systems ROS Statement: Those systems with pertinent positive or pertinent negative responses have been documented in the HPI. ROS Other: All systems not noted in ROS Statement are negative. Past Medical History Past Medical History: COPD, Hearing Disorder / Deafness, Hyperlipidemia, Hypertension, Prostate Disorder Additional Past Medical History / Comment(s): history of menieres disease History of Any Multi-Drug Resistant Organisms: None Reported Past Surgical History: Hernia Repair, Tonsillectomy Additional Past Surgical History / Comment(s): hernia X2, cyst on hand, right foot pin in great toe. Left thoracotomy closure of diaphragmatic hernia with patch, repair of costochondral dislocation with subsequent lung herniation November 22 2017 Past Anesthesia/Blood Transfusion Reactions: No Reported Reaction Past Psychological History: No Psychological Hx Reported Smoking Status: Former smoker Past Alcohol Use History: None Reported Past Drug Use History: None Reported - Past Family History Mother Family Medical History: Dementia Additional Family Medical History / Comment(s): breast cancer Father Family Medical History: No Reported History General Exam Limitations: no limitations General appearance: alert, in no apparent distress Head exam: Present: atraumatic, normocephalic, normal inspection Eye exam: Present: normal appearance, PERRL, EOMI. Absent: scleral icterus, conjunctival injection, periorbital swelling ENT exam: Present: normal exam, mucous membranes moist Neck exam: Present: normal inspection, tenderness (Tenderness noted to the left SCM and lateral trapezius on the left side), other (spasm noted to left lateral neck). Absent: meningismus, full ROM (Patient has worsening pain when looking to the right or left which limits his range of motion. He is however able to flex and extend the neck.), lymphadenopathy Respiratory exam: Present: normal lung sounds bilaterally. Absent: respiratory distress, wheezes, rales, rhonchi, stridor Cardiovascular Exam: Present: regular rate, normal rhythm, normal heart sounds. Absent: systolic murmur, diastolic murmur, rubs, gallop, clicks GI/Abdominal exam: Present: soft, normal bowel sounds. Absent: distended, tenderness, guarding, rebound, rigid Neurological exam: Present: alert, oriented X3, CN II-XII intact Expanded Patient oriented to: Present: person, place, time Cranial nerves: EOM's Intact: Normal, Nystagmus: Normal, Facial Sensation: Normal Sensory exam: Upper Extremity Light Touch: Normal, Upper Extremity Pin Prick: Normal, Lower Extremity Light Touch: Normal, Lower Extremity Pin Prick: Normal Motor strength exam: RUE: 5, LUE: 5, RLE: 5, LLE: 5 Eye Response: (4) open spontaneously Motor Response: (6) obeys commands Verbal Response: (5) oriented Carolynn Total: 15 Psychiatric exam: Present: normal affect, normal mood Course Vital Signs 12/13/18 15:29 Temperature 98.3 F Pulse Rate 81 Respiratory 18 Rate Blood Pressure 141/96 O2 Sat by Pulse 93 L Oximetry Medical Decision Making - Medical Decision Making 73-year-old male presents to the emergency department for a chief complaint of left-sided neck pain. This has been ongoing for 1 week. Patient went to the chiropractor and this worsened. Patient has had similar symptoms in the past 2 years. On exam no focal neuro deficits. Patient does have tenderness of the left SCM and trapezius. Limited rotation due to pain. Muscle spasm noted in left lateral neck. Patient given 15 mg of Toradol. Pain much better at this time after receiving morphine in the ambulance. Patient will be given [place] at home for pain. He will follow up with orthopedic and primary care. He will return here to the emergency department if he has any worsening symptoms. Disposition Clinical Impression: Neck pain Disposition: HOME SELF-CARE Condition: Good Instructions (If sedation given, give patient instructions): Neck Pain (ED) Additional Instructions: Please take [place] for pain. Please follow-up with primary care and orthopedics in one to 2 days. Please return here to the emergency department if you have any worsening symptoms. Prescriptions: HYDROcodone/APAP 5-325MG [[place] 5-325] 1 tab PO Q6HR PRN #12 tab PRN Reason: Pain Is patient prescribed a controlled substance at d/c from ED?: Yes When asked, does pt state using other controlled substances?: No If prescribed controlled substance>3 days was MAPS reviewed?: Prescribed <3 Days If opioid is for acute pain is fill amount 7 days or less?: Yes If Rx opioid, was Start Talking consent form obtained?: Yes Referrals: Quinton Gary DO [Primary Care Provider] - 1-2 days Time of Disposition: 16:26
[2018-12-13] MEDS ORDERED: LIDOCAINE 5% PATCH TOPICAL SCH (17:15)
[2018-12-13 17:34] VITALS: BP 138/90; TEMP 97.6
== END 2018-12-13 17:32 | disposition home or self-care (01) ==
LOC: EC 15:21
DX: M62.838 Other muscle spasm (principal); J44.9 Chronic obstructive pulmonary disease, unspecified; E78.5 Hyperlipidemia, unspecified; I10 Essential (primary) hypertension; N42.9 Disorder of prostate, unspecified; H81.09 Meniere's disease, unspecified ear; Z87.891 Personal history of nicotine dependence; Z79.52 Long term (current) use of systemic steroids; Z79.899 Other long term (current) drug therapy
CPT/HCPCS: 99284; 96374; J1885

== ENCOUNTER → 2018-12-16 | Outpatient (CLI) | payer MEDICARE ==
--- NOTE | 2018-12-16 11:55 | XR ---
EXAMINATION TYPE: XR chest 2V DATE OF EXAM: 12/16/2018 COMPARISON: 09/09/2018 TECHNIQUE: PA and lateral views submitted. HISTORY: Shortness of breath FINDINGS: Bilateral consolidation and tiny effusion stable. Heart size stable. No pneumothorax. Hypertrophic ch anges of the shoulders. Interstitial changes stable. IMPRESSION: 1. Bilateral consolidation and small effusion greater on the right. Correlate for mild venous congest ion or chronic interstitial lung disease
== END ==
LOC: RADXRYALE 09:12
PROVIDERS: ATTEND Physician Assistant Medical
DX: J18.1 Lobar pneumonia, unspecified organism (principal); J90 Pleural effusion, not elsewhere classified
CPT/HCPCS: 71046

== ENCOUNTER → 2018-12-18 | Outpatient (CLI) | payer MEDICARE ==
--- NOTE | 2018-12-18 15:55 | XR ---
EXAMINATION TYPE: XR chest 2V DATE OF EXAM: 12/18/2018 COMPARISON: 12/16/2018 TECHNIQUE: PA and lateral views submitted. HISTORY: Shortness of breath FINDINGS: Bilateral infiltrate and small effusion suspected. There is air lateral to the left rib cage which co uld related herniation of the lung. Other etiologies are not excluded CT scan recommended. No overt f ailure or pneumothorax. Hypertrophic and degenerative changes spine noted. Report called to referring clinician.. Underlying COPD noted and there is a coarsened interstitium which could been the basis o f chronic lung disease. IMPRESSION: 1. Bilateral lower lobe infiltrate. There is air attenuation lateral rib cage. Herniation of the lung most likely etiology given appears to be absence of the rib and evidence of previous surgery. Findin g is also seen on multiple prior exams.. Findings seen on multiple previous exams. A pneumothorax not entirely excluded recommend CT chest recommended. Results immediately telephoned to the referring c linician.
== END | disposition home or self-care (01) ==
LOC: RADXRYALE 14:52
PROVIDERS: ATTEND Physician Assistant Medical
DX: R06.02 Shortness of breath (principal)
CPT/HCPCS: 71046

== ENCOUNTER → 2019-01-01 | Outpatient (CLI) | payer MEDICARE ==
[2019-01-01 13:19] LABS: Blood Urea Nitrogen 23 mg/dL (9-20)
--- NOTE | 2019-01-01 17:05 | CT ---
EXAMINATION TYPE: CT chest w con DATE OF EXAM: 01/01/2019 COMPARISON: CT chest dated 04/11/2018 HISTORY: Left side chest pain. Chest mass and lump CT DLP: 534.1 mGycm Automated exposure control for dose reduction was used. CONTRAST: CT scan of the chest is performed with IV Contrast, patient injected with 100 mL of Isovue 300. FINDINGS: LUNGS: The lungs are remarkable for extensive emphysematous changes as on prior exam. Some interstiti al changes are present at the left lung base with some associated scarring at the site of patient's f racture. There is no pleural effusion or pneumothorax seen. The tracheobronchial tree is patent. MEDIASTINUM: There are no greater than 1 cm hilar or mediastinal lymph nodes. No pericardial effusi on is seen. There is a hiatal hernia. Coronary artery calcifications. There is an old left-sided posterior lateral fracture of the eighth r ib with pseudarthrosis. Ninth rib shows distortion compatible with prior fracture. AORTA: No additional significant abnormality is seen. OTHER: No additional significant abnormality is seen. IMPRESSION: Pseudoarthrosis is noted the site of patient's posterior lateral left rib fracture. Coron grisel artery disease. Emphysema and interstitial lung disease. Hiatal hernia.
== END | disposition home or self-care (01) ==
LOC: RADCTMAIN 12:46
PROVIDERS: ATTEND Internal Medicine Critical Care Medicine
DX: S22.32XA Fracture of one rib, left side, initial encounter for closed fracture (principal); I25.10 Atherosclerotic heart disease of native coronary artery without angina pectoris; J43.9 Emphysema, unspecified; K44.9 Diaphragmatic hernia without obstruction or gangrene
CPT/HCPCS: 82565; 84520; 71260; 36415; Q9967

== ENCOUNTER 2019-03-21 07:54 | Inpatient (IN) | payer MEDICARE ==
[2019-03-21] MEDS ORDERED: methylPREDNISolone SOD SUCCI 125 MG/2 ML VIAL IV STA (08:19)
[2019-03-21] MEDS ORDERED: IPRATROPIUM 0.5 MG/2.5 ML NEBU INHALATION STA (08:19)
[2019-03-21] MEDS ORDERED: SODIUM CHLORIDE 0.9% 500 ML 500 ML IV STA (08:19)
[2019-03-21] MEDS ORDERED: ALBUTEROL NEBULIZED 2.5 MG/3 ML INHALATION STA (08:19)
--- NOTE | 2019-03-21 08:22 | ED ---
General Adult HPI - General Chief complaint: Shortness of Breath Stated complaint: ratna Time Seen by Provider: 03/21/19 07:59 Source: patient, RN notes reviewed Mode of arrival: wheelchair Limitations: no limitations - History of Present Illness Initial comments: 74-year-old male presented for evaluation of cough and dyspnea. Patient has history of COPD, he is on home O2. He does follow with pulmonology. He was started on prednisone taper and Augmentin 3 days ago. He is on chronic daily steroids at baseline. He reports productive cough with white to yellow mucus. Denies fever or chills. He has some generalized chest pain worse with cough. N o central radiating chest pain. No abdominal pain. No history of congestive heart failure. No lower extremity pain or swelling. - Related Data Home Medications Medication Instructions Recorded Confirmed Meclizine [Antivert] 25 mg PO TID 11/18/17 03/21/19 Tamsulosin HCl [Flomax] 0.4 mg PO BID 11/18/17 03/21/19 Albuterol Inhaler [Ventolin Hfa 1 - 2 puff INHALATION RT-Q6H PRN 04/11/18 03/21/19 Inhaler] Losartan Potassium [Cozaar] 25 mg PO DAILY 04/11/18 03/21/19 Ipratropium-Albuterol Nebulize 3 ml INHALATION RT-QID PRN 05/17/18 03/21/19 [Duoneb 0.5 mg-3 mg/3 ml Soln] Fexofenadine HCl [Melody Allergy] 180 mg PO DAILY 12/13/18 03/21/19 predniSONE 10 mg PO Q48H 12/13/18 03/21/19 Amoxic-Pot Clav 875-125Mg 1 tab PO Q12HR 03/21/19 03/21/19 [Augmentin 875-125] Fluticasone Nasal [place] [Flonase 2 spr EA NOSTRIL DAILY 03/21/19 03/21/19 Nasal [place]] Fluticasone/Umeclidin/Vilanter 1 puff INHALATION RT-DAILY 03/21/19 03/21/19 [Trelegy Ellipta 100-62.5-25] Indapamide [Lozol] 1.25 mg PO DAILY 03/21/19 03/21/19 Lovastatin [Mevacor] 40 mg PO HS 03/21/19 03/21/19 Metoprolol Tartrate [Lopressor] 25 mg PO DAILY 03/21/19 03/21/19 Allergies Allergy/AdvReac Type Severity Reaction Status Date / Time No Known Allergies Allergy Verified 03/21/19 09:10 Review of Systems ROS Statement: Those systems with pertinent positive or pertinent negative responses have been documented in the HPI. ROS Other: All systems not noted in ROS Statement are negative. Past Medical History Past Medical History: COPD, Hearing Disorder / Deafness, Hyperlipidemia, Hypertension, Prostate Disorder Additional Past Medical History / Comment(s): history of menieres disease History of Any Multi-Drug Resistant Organisms: None Reported Past Surgical History: Hernia Repair, Tonsillectomy Additional Past Surgical History / Comment(s): hernia X2, cyst on hand, right foot pin in great toe. Left thoracotomy closure of diaphragmatic hernia with patch, repair of costochondral dislocation with subsequent lung herniation November 22 2017 Past Anesthesia/Blood Transfusion Reactions: No Reported Reaction Past Psychological History: No Psychological Hx Reported Smoking Status: Former smoker Past Alcohol Use History: None Reported Past Drug Use History: None Reported - Past Family History Mother Family Medical History: Dementia Additional Family Medical History / Comment(s): breast cancer Father Family Medical History: No Reported History General Exam Limitations: no limitations General appearance: alert, in distress Head exam: Present: atraumatic, normocephalic Eye exam: Present: normal appearance, PERRL ENT exam: Present: normal exam Neck exam: Present: normal inspection. Absent: tenderness, meningismus Respiratory exam: Present: respiratory distress, wheezes, rhonchi, accessory muscle use, decreased breath sounds, prolonged expiratory Cardiovascular Exam: Present: regular rate, normal rhythm GI/Abdominal exam: Present: soft. Absent: distended, tenderness, guarding Extremities exam: Present: normal inspection, normal capillary refill. Absent: pedal edema, calf tenderness Neurological exam: Present: alert, oriented X3 Psychiatric exam: Present: normal affect, normal mood Skin exam: Present: warm, dry, intact. Absent: cyanosis, diaphoretic Course Vital Signs 03/21/19 03/21/19 03/21/19 07:56 08:16 08:21 Temperature 98.3 F Pulse Rate 101 H 110 H Respiratory 18 20 22 Rate Blood Pressure 130/72 152/90 O2 Sat by Pulse 95 94 L Oximetry 03/21/19 03/21/19 03/21/19 08:40 08:52 08:53 Temperature Pulse Rate 112 H 112 H 112 H Respiratory Rate Blood Pressure O2 Sat by Pulse Oximetry 03/21/19 03/21/19 09:06 09:19 Temperature Pulse Rate 116 H 115 H Respiratory 16 Rate Blood Pressure 120/86 O2 Sat by Pulse 94 L Oximetry EKG Findings - EKG Comments: EKG Findings:: Sinus tachycardia, frequent PVC, rate of 111, SC interval 132, QRS duration 100, QTC 462, no ST segment elevation. Medical Decision Making - Medical Decision Making 74-year-old male with 3 days of cough and dyspnea. History of COPD. Exam consistent with COPD exacerbation. His been on steroids, failed to improve. Chest x-rays obtained, shows hyperinflation as well as concern for left upper lobe infiltrate. Patient has elevated white blood cell count 13.1. He has a normal lactic acid. He has a negative troponin, negative BNP. He will be admitted for treatment of COPD exacerbation with pneumonia. Pulmonology placed on consult. Case discussed with the admitting physician. - Lab Data Result diagrams: 03/21/19 08:09 03/21/19 08:09 Lab Results 03/21/19 03/21/19 03/21/19 Range/Units 08:09 08:09 08:09 WBC 13.1 H (3.8-10.6) k/uL RBC 4.76 (4.30-5.90) m/uL Hgb 14.2 (13.0-17.5) gm/dL Hct 42.9 (39.0-53.0) % MCV 90.1 (80.0-100.0) fL MCH 29.8 (25.0-35.0) pg MCHC 33.1 (31.0-37.0) g/dL RDW 14.0 (11.5-15.5) % Plt Count 310 (150-450) k/uL Neutrophils % 88 % Lymphocytes % 3 % Monocytes % 6 % Eosinophils % 1 % Basophils % 0 % Neutrophils # 11.5 H (1.3-7.7) k/uL Lymphocytes # 0.4 L (1.0-4.8) k/uL Monocytes # 0.8 (0-1.0) k/uL Eosinophils # 0.2 (0-0.7) k/uL Basophils # 0.1 (0-0.2) k/uL PT (9.0-12.0) sec INR (<1.2) APTT (22.0-30.0) sec Sodium 135 L (137-145) mmol/L Potassium 3.8 (3.5-5.1) mmol/L Chloride 102 (98-107) mmol/L Carbon Dioxide 22 (22-30) mmol/L Anion Gap 11 mmol/L BUN 24 H (9-20) mg/dL Creatinine 0.87 (0.66-1.25) mg/dL Est GFR (CKD-EPI)AfAm >90 (>60 ml/min/1.73 sqM) Est GFR (CKD-EPI)NonAf 85 (>60 ml/min/1.73 sqM) Glucose 120 H (74-99) mg/dL Plasma Lactic Acid Geo (0.7-2.0) mmol/L Calcium 8.7 (8.4-10.2) mg/dL Magnesium 1.8 (1.6-2.3) mg/dL Total Bilirubin 0.9 (0.2-1.3) mg/dL AST 63 H (17-59) U/L ALT 34 (21-72) U/L Alkaline Phosphatase 48 (38-126) U/L Troponin I (0.000-0.034) ng/mL NT-Pro-B Natriuret Pep 183 pg/mL Total Protein 6.6 (6.3-8.2) g/dL Albumin 3.9 (3.5-5.0) g/dL 03/21/19 03/21/19 03/21/19 Range/Units 08:09 08:09 08:45 WBC (3.8-10.6) k/uL RBC (4.30-5.90) m/uL Hgb (13.0-17.5) gm/dL Hct (39.0-53.0) % MCV (80.0-100.0) fL MCH (25.0-35.0) pg MCHC (31.0-37.0) g/dL RDW (11.5-15.5) % Plt Count (150-450) k/uL Neutrophils % % Lymphocytes % % Monocytes % % Eosinophils % % Basophils % % Neutrophils # (1.3-7.7) k/uL Lymphocytes # (1.0-4.8) k/uL Monocytes # (0-1.0) k/uL Eosinophils # (0-0.7) k/uL Basophils # (0-0.2) k/uL PT 10.4 (9.0-12.0) sec INR 1.0 (<1.2) APTT 24.5 (22.0-30.0) sec Sodium (137-145) mmol/L Potassium (3.5-5.1) mmol/L Chloride (98-107) mmol/L Carbon Dioxide (22-30) mmol/L Anion Gap mmol/L BUN (9-20) mg/dL Creatinine (0.66-1.25) mg/dL Est GFR (CKD-EPI)AfAm (>60 ml/min/1.73 sqM) Est GFR (CKD-EPI)NonAf (>60 ml/min/1.73 sqM) Glucose (74-99) mg/dL Plasma Lactic Acid Geo 1.9 (0.7-2.0) mmol/L Calcium (8.4-10.2) mg/dL Magnesium (1.6-2.3) mg/dL Total Bilirubin (0.2-1.3) mg/dL AST (17-59) U/L ALT (21-72) U/L Alkaline Phosphatase (38-126) U/L Troponin I <0.012 (0.000-0.034) ng/mL NT-Pro-B Natriuret Pep pg/mL Total Protein (6.3-8.2) g/dL Albumin (3.5-5.0) g/dL Critical Care Time Critical Care Time: Yes Total Critical Care Time: 35 Disposition Clinical Impression: Acute exacerbation of chronic obstructive airways disease Disposition: ADMITTED IP TO THIS HOSP Condition: Stable Is patient prescribed a controlled substance at d/c from ED?: No Referrals: Quinton Gary DO [Primary Care Provider] - 1-2 days Decision to Admit Reason: Admit from EC Decision Date: 03/21/19 Decision Time: 09:29
[2019-03-21 08:32] LABS: Basophils # (A) 0.1 k/uL (0-0.2); Basophils % (A) 0 %; Eosinophils # (A) 0.2 k/uL (0-0.7); Eosinophils % (A) 1 %; HCT 42.9 % (39.0-53.0); HGB 14.2 gm/dL (13.0-17.5); Lymphocytes # (A) 0.4 k/uL (1.0-4.8); Lymphocytes % (A) 3 %; MCH 29.8 pg (25.0-35.0); MCHC 33.1 g/dL (31.0-37.0); MCV 90.1 fL (80.0-100.0); Mean Platelet Volume 6.5; Monocytes # (A) 0.8 k/uL (0-1.0); Monocytes % (A) 6 %; Neutrophils # (A) 11.5 k/uL (1.3-7.7); Neutrophils % (A) 88 %; Platelet Count 310 k/uL (150-450); RBC 4.76 m/uL (4.30-5.90); WBC 13.1 k/uL (3.8-10.6)
--- NOTE | 2019-03-21 08:37 | XR ---
EXAMINATION TYPE: XR chest 2V DATE OF EXAM: 03/21/2019 COMPARISON: 12/18/2018 TECHNIQUE: PA and lateral views submitted. HISTORY: Shortness of breath FINDINGS: There is hyperinflation of the lungs. Subsegmental changes at both lung bases. No pneumothorax. Ather osclerotic change aorta. Prominence the right hilum which is stable from multiple prior chest x-rays appears be related to prominent pulmonary artery. CT chest 01/01/2019. Degenerative change of the spine . Arthropathy of the shoulders. IMPRESSION: 1. COPD with probable pulmonary arterial hypertension. Prominence of the right hilum is stable as dis cussed above. 2. There is vague increased density along the lateral margin of the left upper lobe. Atelectasis vers us early infiltrate.
[2019-03-21 08:40] LABS: Partial Thromboplastin Time 24.5 sec (22.0-30.0); Prothrombin Time 10.4 sec (9.0-12.0)
[2019-03-21 08:50] LABS: ALT 34 U/L (21-72); AST 63 U/L (17-59); Albumin 3.9 g/dL (3.5-5.0); Alkaline Phosphatase 48 U/L (38-126); Anion Gap 11 mmol/L; Blood Urea Nitrogen 24 mg/dL (9-20); Calcium 8.7 mg/dL (8.4-10.2); Carbon Dioxide 22 mmol/L (22-30); Chloride 102 mmol/L (98-107); Glucose 120 mg/dL (74-99); Magnesium 1.8 mg/dL (1.6-2.3); Potassium 3.8 mmol/L (3.5-5.1); Sodium 135 mmol/L (137-145); Total Bilirubin 0.9 mg/dL (0.2-1.3); Total Protein 6.6 g/dL (6.3-8.2)
[2019-03-21] MEDS ORDERED: AZITHROMYCIN 500 MG in SODIUM CHLORIDE 0.9% 250 ML IVPB STA (08:58)
[2019-03-21] MEDS ORDERED: IPRATROPIUM-ALBUTEROL 3 ML NEB INHALATION PRN (09:26)
[2019-03-21] MEDS ORDERED: ALBUTEROL NEBULIZED 2.5 MG/3 ML INHALATION PRN (09:27)
[2019-03-21] MEDS: SODIUM CHLORIDE 0.9% 1,000 ML IV SCH ×2 (09:45→19:46)
[2019-03-21] MEDS ORDERED: PROMETHAZ-COD 6.25-10 MG/5 ML 5 ML CUP PO PRN (11:19)
[2019-03-21] MEDS: PROMETHAZ-COD 6.25-10 MG/5 ML 5 ML CUP PO SCH ×4 (11:47→23:07)
[2019-03-21] MEDS: methylPREDNISolone SOD SUCCI 125 MG/2 ML VIAL IV SCH ×3 (11:47→23:08)
[2019-03-21] MEDS: IPRATROPIUM-ALBUTEROL 3 ML NEB INHALATION SCH ×3 (12:49→20:02)
--- NOTE | 2019-03-21 12:55 | CT ---
EXAMINATION TYPE: CT chest wo con DATE OF EXAM: 03/21/2019 COMPARISON: 01/01/2019 HISTORY: SOB, Cough CT DLP: [address] of the chest was performed with lung and mediastinal window settings submitted. The la ck of contrast limits evaluation of the vascular, mediastinal and parenchymal structures including th e upper abdomen. LUNGS: There is scattered subpleural fibrosis greatest at the left lung base. Scattered emphysematous changes noted. Resection of multiple lower left lower lobe ribs. There is pseudoarthrosis noted. MEDIASTINUM/ALDA: Thoracic aorta is of normal caliber with limited evaluation given lack of contrast . The heart is not enlarged. No evidence for mediastinal mass. No lymph nodes greater than 1cm. UPPER ABDOMEN: No significant abnormality is seen. OTHER: No significant other abnormality. IMPRESSION: 1. Stable appearance of the chest. Scattered interstitial fibrosis and extensive emphysematous schmidt e.
--- NOTE | 2019-03-21 13:55 | P.CNPUL ---
History of Present Illness Consult date: 03/21/19 Reason for consult: dyspnea, cough Chief complaint: Cough, shortness of breath History of present illness: This is a 73-year-old of white male patient with history of COPD with baseline FEV1 of 63% predicted, severe obstructive sleep apnea intolerant to CPAP treatment, history of left lung herniation related to a very vigorous cough during one of the episodes of COPD exacerbation, and patient underwent left thoracotomy closure of a diaphragmatic hernia with the patch, repair of a costochondral dislocation and subsequent repair of a herniated lung. Patient follows with Dr. Martinez in the pulmonary office for his pulmonary care. He is on Trelegy, he is on maintenance dose of prednisone 10 mg daily. He had a r ecent computed tomography scan in December 2018 showing extensive emphysema, some limited scarring in the left lower lobe area, pseudoarthrosis at the site of the lateral left rib fracture, which was also seen on previous evaluations. Patient has a seasonal ALLERGIES, and he is on Zyrtec in conjunction with Flonase for his seasonal ALLERGIES. Patient was doing good, on his usual maintenance inhalers and breathing treatments. Recently he took a trip to [place] for [employer], and he believes he may have picked up an infection, she started complaining of increased nasal congestion, and she was treated with a round of Augmentin and steroids by his primary care physician, this was on 03/01/2019. Patient completed a course, however his symptoms did not improve, and actually his cough has progressed, and he went to see his PCP again who put him on the second course of Augmentin with steroids, and patient took 2 days of it and last night she could not stop coughing, his cough was becoming quite a bit worse. he denied any fever or chills, denied any hemoptysis. Patient came in to the emergency department for evaluation this morning on 03/21/2019. Chest x-ray was completed showing COPD with probable pulmonary arterial hypertension, prominence of the right hilum, and vague increased density along the lateral margin of the left upper lobe, there was a concern for pneumonia. Labwork was completed showing blood blood cell count of 13.1, hemoglobin of 14.2, INR is 1.0, sodium was 135, domestic electrolytes and renal profile were unremarkable, plasma lactic acid was within normal limits at 1.9, troponin was negative 1, proBNP was 183. Patient has been afebrile. Hemodynamic was stable, lung sounds reveal diffuse wheezes, and rhonchi. Patient was admitted for further inpatient treatment, and were consulted for evaluation for possibility of pneumonia, and COPD exacerbation. Review of Systems All systems: negative Constitutional: Denies chills, Denies fever Eyes: denies blurred vision, denies pain Ears, nose, mouth and throat: Denies headache, Denies sore throat Cardiovascular: Denies chest pain, Denies shortness of breath Respiratory: Reports congestion, Reports cough with sputum, Reports dyspnea, Denies cough Gastrointestinal: Denies abdominal pain, Denies diarrhea, Denies nausea, Denies vomiting Musculoskeletal: Denies myalgias Integumentary: Denies pruritus, Denies rash Neurological: Denies numbness, Denies weakness Psychiatric: Denies anxiety, Denies depression Endocrine: Denies fatigue, Denies weight change Past Medical History Past Medical History: Atrial Fibrillation, COPD, Hearing Disorder / Deafness, Hyperlipidemia, Hypertension, Prostate Disorder, Respiratory Disorder Additional Past Medical History / Comment(s): Home oxygen pt uses prn, chronic steroid use, paroxysmal Afib, menieres disease, hiatal hernia, pt denies past CHF, BENEDICT-uses oxygen [place], moderate mitral regurg, mild tricuspid regurg, L pleural effusion/loculated and had pigtail drains, past fluid collection along pleura abdominal wall musculature, BPH, L ear deafness, ELIM IRA R ear with aide. History of Any Multi-Drug Resistant Organisms: None Reported Past Surgical History: Hernia Repair, Tonsillectomy Additional Past Surgical History / Comment(s): cyst removed R thumb, right foot implant great toe, left thoracotomy closure of diaphragmatic hernia with patch, repair of costochondral dislocation with subsequent lung herniation November 22 2017, colonoscopies. Past Anesthesia/Blood Transfusion Reactions: No Reported Reaction Smoking Status: Former smoker - Past Family History Mother Family Medical History: Dementia Additional Family Medical History / Comment(s): breast cancer Father Family Medical History: No Reported History Medications and Allergies Home Medications Medication Instructions Recorded Confirmed Type Meclizine [Antivert] 25 mg PO TID 11/18/17 03/21/19 History Tamsulosin HCl [Flomax] 0.4 mg PO BID 11/18/17 03/21/19 History Albuterol Inhaler [Ventolin Hfa 1 - 2 puff INHALATION RT-Q6H PRN 04/11/18 03/21/19 History Inhaler] Losartan Potassium [Cozaar] 25 mg PO DAILY 04/11/18 03/21/19 History Ipratropium-Albuterol Nebulize 3 ml INHALATION RT-QID PRN 05/17/18 03/21/19 History [Duoneb 0.5 mg-3 mg/3 ml Soln] Fexofenadine HCl [Melody Allergy] 180 mg PO DAILY 12/13/18 03/21/19 History predniSONE 10 mg PO Q48H 12/13/18 03/21/19 History Amoxic-Pot Clav 875-125Mg 1 tab PO Q12HR 03/21/19 03/21/19 History [Augmentin 875-125] Fluticasone Nasal [place] [Flonase 2 spr EA NOSTRIL DAILY 03/21/19 03/21/19 History Nasal [place]] Fluticasone/Umeclidin/Vilanter 1 puff INHALATION RT-DAILY 03/21/19 03/21/19 History [[place] Ellipta 100-62.5-25] Indapamide [Lozol] 1.25 mg PO DAILY 03/21/19 03/21/19 History Lovastatin [Mevacor] 40 mg PO HS 03/21/19 03/21/19 History Metoprolol Tartrate [Lopressor] 25 mg PO DAILY 03/21/19 03/21/19 History Allergies Allergy/AdvReac Type Severity Reaction Status Date / Time No Known Allergies Allergy Verified 03/21/19 09:10 Physical Exam Vitals: Vital Signs Temp Pulse Pulse Resp BP BP Pulse Ox 03/21/19 13:03 106 H 03/21/19 13:00 97.8 F 117 H 16 152/85 97 03/21/19 12:53 104 H 03/21/19 09:19 115 H 16 120/86 94 L 03/21/19 09:06 116 H 03/21/19 08:53 112 H 03/21/19 08:52 112 H 03/21/19 08:40 112 H 03/21/19 08:21 110 H 22 152/90 94 L 03/21/19 08:16 20 03/21/19 07:56 98.3 F 101 H 18 130/72 95 Intake and Output 0503/21/19 03/21/19 22:59 06:59 14:59 Other: Voiding Method Toilet Weight 98.883 kg GENERAL EXAM: Alert, pleasant, 74-year-old white male, on 2 L of oxygen, comfortable in no apparent distress. HEAD: Normocephalic/atraumatic. EYES: Normal reaction of pupils, equal size. Conjunctiva pink, sclera white. NOSE: Clear with pink turbinates. THROAT: No erythema or exudates. NECK: No masses, no JVD, no thyroid enlargement, no adenopathy. CHEST: No chest wall deformity. Symmetrical expansion. Patient has a healed scar across his left lower torso, and there is a soft tissue mass above the incision, related to patient's left partial lung herniation LUNGS: Equal air entry with diffuse wheezes, and some limited rhonchi CVS: Regular rate and rhythm, normal S1 and S2, no gallops, no murmurs, no rubs ABDOMEN: Soft, nontender. No hepatosplenomegaly, normal bowel sounds, no guarding or rigidity. EXTREMITIES: No clubbing, no edema, no cyanosis, 2+ pulses and upper and lower extremities. MUSCULOSKELETAL: Muscle strength and tone normal. SPINE: No scoliosis or deformity SKIN: No rashes CENTRAL NERVOUS SYSTEM: Alert and oriented -3. No focal deficits, tone is normal in all 4 extremities. PSYCHIATRIC: Alert and oriented -3. Appropriate affect. Intact judgment and insight. Results - Laboratory Findings CBC and BMP: 03/21/19 08:09 03/21/19 08:09 PT/INR, D-dimer PT 10.4 sec (9.0-12.0) 03/21/19 08:09 INR 1.0 (<1.2) 03/21/19 08:09 Abnormal lab findings: Abnormal Labs 03/21/19 03/21/19 08:09 08:09 WBC 13.1 H Neutrophils # 11.5 H Lymphocytes # 0.4 L Sodium 135 L BUN 24 H Glucose 120 H AST 63 H - Diagnostic Findings Chest x-ray: report reviewed, image reviewed CT scan - chest: report reviewed, image reviewed Assessment and Plan Plan: #1. Acute exacerbation of chronic obstructive pulmonary disease, chest x-ray showed a vague density along the lateral margin of the left upper lobe, and there was a concern for early pneumonia, he T scan was completed showing stable appearance of the chest, scattered interstitial fibrosis, and extensive emphysema, resection of multiple lower left lower lobe ribs, pseudoarthrosis, no significant abnormality. #2. Stage II COPD, with baseline FEV1 of 63% of predicted #3. Obstructive sleep apnea, with AHI score of 58 and patient is intolerant to CPAP #4. Former smoker #5. Mnire's disease #6. Hypertension #7. Hyperlipidemia #8. History of atrial fibrillation Plan: We will continue with IV steroids, will add Phenergan with codeine cough syrup [id number] to suppress the patient's cough, continue with breathing treatments, Pulmicort and Perforomist, CT chest was obtained and reviewed by Dr. Martinez, and showed chronic findings without acute findings, continue with Zithromax and Rocephin, sputum for culture. We'll continue to follow I performed a history & physical examination of the patient and discussed their management with my nurse practitioner, Tracy Heaton. I reviewed the nurse practitioner's note and agree with the documented findings and plan of care. Marquita ng sounds are positive for diffuse wheezes throughout the lung pham. The findings and the impression was discussed with the patient. I attest to the documentation by the nurse practitioner. Time with Patient: Greater than 30
--- NOTE | 2019-03-21 14:51 | P.HPIM ---
History of Present Illness 72-year-old male with known history of COPD and smoking in 2013 came in with compensative short of breath and patient was using Augmentin for 3 days and is also on prednisone taper at home. Patient here was started on IV steroids. Patient was evaluated with pulmonology here. CAT scan was obtained not impressive for pneumonia but does wake infiltrate without any a bronchogram but pulmonary is recommending to continue Rocephin and is mycin which will be continued. Patient main symptoms appears to be mostly cough rather than s hortness of breath but was having the shortness of breath for about couple weeks. Patient follows with Dr. rubio as an outpatient. Patient had a history of lung herniation on the left side in the past for which patient underwent left the lobectomy. Patient denied any fever chills doesn't have any significant leukocytosis. Patient was comparing of cough but unable to bring up much Review of Systems REVIEW OF SYSTEMS: CONSTITUTIONAL: No fever, no malaise, no fatigue. HEENT: No recent visual problems or hearing problems. Denied any sore throat. CARDIOVASCULAR: No chest pain, orthopnea, PND, no palpitations, no syncope. PULMONARY: no hemoptysis. GASTROINTESTINAL: No diarrhea, no nausea, no vomiting, no abdominal pain. NEUROLOGICAL: No headaches, no weakness, no numbness. HEMATOLOGICAL: Denies any bleeding or petechiae. GENITOURINARY: Denies any burning micturition, frequency, or urgency. MUSCULOSKELETAL/RHEUMATOLOGICAL: Denies any joint pain, swelling, or any muscle pain. ENDOCRINE: Denies any polyuria or polydipsia. The rest of the 14-point review of systems is negative. Past Medical History Past Medical History: Atrial Fibrillation, COPD, Hearing Disorder / Deafness, Hyperlipidemia, Hypertension, Prostate Disorder, Respiratory Disorder Additional Past Medical History / Comment(s): Home oxygen pt uses prn, chronic steroid use, paroxysmal Afib, menieres disease, hiatal hernia, pt denies past CHF, BENEDICT-uses oxygen [place], moderate mitral regurg, mild tricuspid regurg, L pleural effusion/loculated and had pigtail drains, past fluid collection along pleura abdominal wall musculature, BPH, L ear deafness, [place] R ear with aide. History of Any Multi-Drug Resistant Organisms: None Reported Past Surgical History: Hernia Repair, Tonsillectomy Additional Past Surgical History / Comment(s): cyst removed R thumb, right foot implant great toe, left thoracotomy closure of diaphragmatic hernia with patch, repair of costochondral dislocation with subsequent lung herniation November 22 2017, colonoscopies. Past Anesthesia/Blood Transfusion Reactions: No Reported Reaction Smoking Status: Former smoker - Past Family History Mother Family Medical History: Dementia Additional Family Medical History / Comment(s): breast cancer Father Family Medical History: No Reported History Medications and Allergies Home Medications Medication Instructions Recorded Confirmed Type Meclizine [Antivert] 25 mg PO TID 11/18/17 03/21/19 History Tamsulosin HCl [Flomax] 0.4 mg PO BID 11/18/17 03/21/19 History Albuterol Inhaler [Ventolin Hfa 1 - 2 puff INHALATION RT-Q6H PRN 04/11/18 03/21/19 History Inhaler] Losartan Potassium [Cozaar] 25 mg PO DAILY 04/11/18 03/21/19 History Ipratropium-Albuterol Nebulize 3 ml INHALATION RT-QID PRN 05/17/18 03/21/19 History [Duoneb 0.5 mg-3 mg/3 ml Soln] Fexofenadine HCl [Melody Allergy] 180 mg PO DAILY 12/13/18 03/21/19 History predniSONE 10 mg PO Q48H 12/13/18 03/21/19 History Amoxic-Pot Clav 875-125Mg 1 tab PO Q12HR 03/21/19 03/21/19 History [Augmentin 875-125] Fluticasone Nasal [place] [Flonase 2 spr EA NOSTRIL DAILY 03/21/19 03/21/19 History Nasal [place]] Fluticasone/Umeclidin/Vilanter 1 puff INHALATION RT-DAILY 03/21/19 03/21/19 History [Trelegy Ellipta 100-62.5-25] Indapamide [Lozol] 1.25 mg PO DAILY 03/21/19 03/21/19 History Lovastatin [Mevacor] 40 mg PO HS 03/21/19 03/21/19 History Metoprolol Tartrate [Lopressor] 25 mg PO DAILY 03/21/19 03/21/19 History Allergies Allergy/AdvReac Type Severity Reaction Status Date / Time No Known Allergies Allergy Verified 03/21/19 09:10 Physical Exam Vitals: Vital Signs Temp Pulse Pulse Resp BP BP Pulse Ox 03/21/19 13:03 106 H 03/21/19 13:00 97.8 F 117 H 16 152/85 97 03/21/19 12:53 104 H 03/21/19 09:19 115 H 16 120/86 94 L 03/21/19 09:06 116 H 03/21/19 08:53 112 H 03/21/19 08:52 112 H 03/21/19 08:40 112 H 03/21/19 08:21 110 H 22 152/90 94 L 03/21/19 08:16 20 03/21/19 07:56 98.3 F 101 H 18 130/72 95 Intake and Output 03/20/19 03/21/19 03/21/19 22:59 06:59 14:59 Other: Voiding Method Toilet Weight 98.883 kg PHYSICAL EXAMINATION: GENERAL: The patient is alert and oriented x3, not in any acute distress. Well developed, well nourished. HEENT: Pupils are round and equally reacting to light. EOMI. No scleral icterus. No conjunctival pallor. Normocephalic, atraumatic. No pharyngeal erythema. No thyromegaly. CARDIOVASCULAR: S1 and S2 present. No murmurs, rubs, or gallops. PULMONARY: Chest is clear to auscultation, no wheezing or crackles. I didn't hear any wheezing ABDOMEN: Soft, nontender, nondistended, normoactive bowel sounds. No palpable organomegaly. MUSCULOSKELETAL: No joint swelling or deformity. EXTREMITIES: No cyanosis, clubbing, or pedal edema. NEUROLOGICAL: Gross neurological examination did not reveal any focal deficits. SKIN: No rashes. Results CBC & Chem 7: 03/21/19 08:09 03/21/19 08:09 Labs: Abnormal Lab Results - Last 24 Hours (Table) 03/21/19 03/21/19 Range/Units 08:09 08:09 WBC 13.1 H (3.8-10.6) k/uL Neutrophils # 11.5 H (1.3-7.7) k/uL Lymphocytes # 0.4 L (1.0-4.8) k/uL Sodium 135 L (137-145) mmol/L BUN 24 H (9-20) mg/dL Glucose 120 H (74-99) mg/dL AST 63 H (17-59) U/L Thrombosis Risk Factor Assmnt - Choose All That Apply Any of the Below Risk Factors Present?: Yes Each Factor Represents 1 point: Abnormal pulmonary function (COPD), Obesity (BMI >25), Serious lung disease incl. pneumonia (< 1month) Other Risk Factors: Yes Each Risk Factor Represents 3 Points: Age 75 years or older Other congenital or acquired thrombophilia - If yes, enter type in comment: No Thrombosis Risk Factor Assessment Total Risk Factor Score: 6 Thrombosis Risk Factor Assessment Level: High Risk Assessment and Plan Plan: -COPD with acute exacerbation continue with systemic steroids inhalational treatments next and have an obstructive sleep apnea -History of Mnire's disease -Hypertension -Hyperlipidemia -Atrial fibrillation presently rate controlled Patient will need pharmacologic GI prophylaxis DVT prophylaxis early ambulation
[2019-03-21 17:18] LABS: Glucose,Whole Blood 195 mg/dL (75-99)
[2019-03-21] MEDS: INSULIN ASPART (NovoLOG) 100 UNIT/ML VIAL SQ SCH ×2 (18:12→21:06)
[2019-03-21] MEDS ORDERED: MELATONIN 5 MG TABLET PO PRN (18:18)
[2019-03-21] MEDS ORDERED: ACETAMINOPHEN TAB 325 MG TAB PO PRN (18:39)
[2019-03-21 19:55] LABS: Glucose,Whole Blood 151 mg/dL (75-99)
[2019-03-21] MEDS: FORMOTEROL FUMARATE 20 MCG/2 ML NEBU INHALATION SCH (20:02)
[2019-03-21] MEDS: BUDESONIDE 1 MG/2 ML NEBU INHALATION SCH (20:02)
[2019-03-21] MEDS: FAMOTIDINE 20 MG TAB PO SCH (21:06)
[2019-03-21] MEDS: ATORVASTATIN 10 MG TAB PO SCH (21:06)
[2019-03-21] MEDS: TAMSULOSIN 0.4 MG CAP.ER.24H PO SCH (21:06)
[2019-03-22] MEDS: PROMETHAZ-COD 6.25-10 MG/5 ML 5 ML CUP PO SCH ×6 (03:25→23:56)
[2019-03-22] MEDS: SODIUM CHLORIDE 0.9% 1,000 ML IV SCH ×2 (03:27→12:53)
[2019-03-22] MEDS: methylPREDNISolone SOD SUCCI 125 MG/2 ML VIAL IV SCH ×4 (05:58→23:57)
[2019-03-22 06:54] LABS: Glucose,Whole Blood 124 mg/dL (75-99)
[2019-03-22] MEDS: INSULIN ASPART (NovoLOG) 100 UNIT/ML VIAL SQ SCH ×4 (08:24→20:54)
[2019-03-22] MEDS: METOPROLOL TARTRATE 25 MG TAB PO SCH (08:26)
[2019-03-22] MEDS: LOSARTAN 25 MG TAB PO SCH (08:26)
[2019-03-22] MEDS: TAMSULOSIN 0.4 MG CAP.ER.24H PO SCH ×2 (08:26→20:52)
[2019-03-22] MEDS: FAMOTIDINE 20 MG TAB PO SCH ×2 (08:26→20:52)
[2019-03-22] MEDS: AZITHROMYCIN 500 MG TAB PO SCH (08:26)
[2019-03-22] MEDS: LORATADINE 10 MG TAB PO SCH (08:26)
[2019-03-22] MEDS: FLUTICASONE 50MCG/SPRAY NASAL 16GM EA NOSTRIL SCH (08:29)
[2019-03-22] MEDS: FORMOTEROL FUMARATE 20 MCG/2 ML NEBU INHALATION SCH ×2 (08:33→19:44)
[2019-03-22] MEDS: BUDESONIDE 1 MG/2 ML NEBU INHALATION SCH ×2 (08:33→19:44)
[2019-03-22] MEDS: IPRATROPIUM-ALBUTEROL 3 ML NEB INHALATION SCH ×4 (08:33→19:44)
[2019-03-22 11:07] LABS: Glucose,Whole Blood 166 mg/dL (75-99)
--- NOTE | 2019-03-22 14:06 | P.PN ---
Subjective Progress Note Date: 03/22/19 This is a 73-year-old of white male patient with history of COPD with baseline FEV1 of 63% predicted, severe obstructive sleep apnea intolerant to CPAP treatment, history of left lung herniation related to a very vigorous cough during one of the episodes of COPD exacerbation, and patient underwent left thoracotomy closure of a diaphragmatic hernia with the patch, repair of a c ostochondral dislocation and subsequent repair of a herniated lung. Patient follows with Dr. Martinez in the pulmonary office for his pulmonary care. He is on Trelegy, he is on maintenance dose of prednisone 10 mg daily. He had a recent computed tomography scan in December 2018 showing extensive emphysema, some limited scarring in the left lower lobe area, pseudoarthrosis at the site of the lateral left rib fracture, which was also seen on previous evaluations. Patient has a seasonal ALLERGIES, and he is on Zyrtec in conjunction with Flonase for his seasonal ALLERGIES. Patient was doing good, on his usual maintenance inhalers and breathing treatments. Recently he took a trip to [place] for [facility], and he believes he may have picked up an infection, she started complaining of increased nasal congestion, and she was treated with a round of Augmentin and steroids by his primary care physician, this was on 03/01/2019. Patient completed a course, however his symptoms did not improve, and actually his cough has progressed, and he went to see his PCP again who put him on the second course of Augmentin with steroids, and patient took 2 days of it and last night she could not stop coughing, his cough was becoming quite a bit worse. he denied any fever or chills, denied any hemoptysis. Patient came in to the emergency department for evaluation this morning on 03/21/2019. Chest x-ray was completed showing COPD with probable pulmonary arterial hypertension, prominence of the right hilum, and vague increased density along the lateral margin of the left upper lobe, there was a concern for pneumonia. Labwork was completed showing blood blood cell count of 13.1, hemoglobin of 14.2, INR is 1.0, sodium was 135, domestic electrolytes and renal profile were unremarkable, plasma lactic acid was within normal limits at 1.9, troponin was negative 1, proBNP was 183. Patient has been afebrile. Hemodynamic was stable, lung sounds reveal diffuse wheezes, and rhonchi. Patient was admitted for further inpatient treatment, and were consulted for evaluation for possibility of pneumonia, and COPD exacerbation. On 03/22/2019 I'm seeing this patient for a follow-up. The patient is doing better compared to yesterday. He is less short of breath. Less bronchospastic and wheezy his cough has subsided. CAT scan of the chest was done yesterday and there is no evidence of any pneumonia. There is diffuse emphysema. No lung masses or lesions. No pleural effusion. No other significant abnormalities have been noted. The patient is doing well. No fever. No chills. No hemoptysis. No pleurisy. No other significant events otherwise for now. He is overall improving and he remains on IV Solu-Medrol. Objective - Vital Signs Vital signs: Vital Signs Temp 97.1 F L 03/22/19 12:45 Pulse 84 03/22/19 12:45 Resp 17 03/22/19 12:45 BP 135/73 03/22/19 12:45 Pulse Ox 93 L 03/22/19 12:45 Intake & Output 03/21/19 03/22/19 03/22/19 18:59 06:59 18:59 Intake Total 300 2080 Balance 300 2080 Weight 98.883 kg Intake: Intake, IV Titration 1600 Amount Sodium Chloride 0.9% 1, 1600 000 ml @ 100 mls/hr IV . Q10H LEANDRO Rx#:[id number] Oral 300 480 Other: Voiding Method Toilet Toilet Toilet # Voids 2 2 - Exam GENERAL EXAM: Alert, pleasant, 74-year-old white male, on 2 L of oxygen, comfortable in no apparent distress. HEAD: Normocephalic/atraumatic. EYES: Normal reaction of pupils, equal size. Conjunctiva pink, sclera white. NOSE: Clear with pink turbinates. THROAT: No erythema or exudates. NECK: No masses, no JVD, no thyroid enlargement, no adenopathy. CHEST: No chest wall deformity. Symmetrical expansion. Patient has a healed scar across his left lower torso, and there is a soft tissue mass above the incision, related to patient's left partial lung herniation LUNGS: Equal air entry with diffuse wheezes, and some limited rhonchi CVS: Regular rate and rhythm, normal S1 and S2, no gallops, no murmurs, no rubs ABDOMEN: Soft, nontender. No hepatosplenomegaly, normal bowel sounds, no guarding or rigidity. EXTREMITIES: No clubbing, no edema, no cyanosis, 2+ pulses and upper and lower extremities. MUSCULOSKELETAL: Muscle strength and tone normal. SPINE: No scoliosis or deformity SKIN: No rashes CENTRAL NERVOUS SYSTEM: Alert and oriented -3. No focal deficits, tone is normal in all 4 extremities. PSYCHIATRIC: Alert and oriented -3. Appropriate affect. Intact judgment and insight. - Labs CBC & Chem 7: 03/21/19 08:09 03/21/19 08:09 Labs: Abnormal Lab Results - Last 24 Hours (Table) 03/21/19 03/21/19 03/22/19 Range/Units 17:05 19:54 06:53 POC Glucose (mg/dL) 195 H 151 H 124 H (75-99) mg/dL 03/22/19 Range/Units 11:06 POC Glucose (mg/dL) 166 H (75-99) mg/dL Microbiology - Last 24 Hours (Table) 03/21/19 08:45 Blood Culture - Preliminary Blood No Growth after 24 hours Assessment and Plan Plan: #1. Acute exacerbation of chronic obstructive pulmonary disease, chest x-ray showed a vague density along the lateral margin of the left upper lobe, and there was a concern for early pneumonia, he T scan was completed showing stable appearance of the chest, scattered interstitial fibrosis, and extensive emphysema, resection of multiple lower left lower lobe ribs, pseudoarthrosis, no significant abnormality. #2. Stage II COPD, with baseline FEV1 of 63% of predicted #3. Obstructive sleep apnea, with AHI score of 58 and patient is intolerant to CPAP #4. Former smoker #5. Mnire's disease #6. Hypertension #7. Hyperlipidemia #8. History of atrial fibrillation Plan Clinically improving. We'll continue same treatment. CAT scan of the chest was noted. The patient has no evidence of a pneumonia. He would benefit from systemic steroids for another 24 hours. Cough medication with a combination of promethazine with codeine. Continue bronchodilators [id number]. Possible discharge in a.m.
--- NOTE | 2019-03-22 14:41 | P.PN ---
Subjective patient is admitted for same-day saturation feeling better today. Pulmonary is recommending one more night of hospitalization. Constitutional: Denied any fatigue denied any fever. Cardio vascular: denied any chest pain, palpitations Gastrointestinal denied any nausea vomiting Pulmonary significantly improved cough and shortness of breath Neurologic denied any new focal deficits All inpatient medications were reviewed and appropriate changes in these medications as dictated in the interval history and assessment and plan. Objective - Vital Signs Vital signs: Vital Signs Temp 97.1 F L 03/22/19 12:45 Pulse 84 03/22/19 12:45 Resp 17 03/22/19 12:45 BP 135/73 03/22/19 12:45 Pulse Ox 93 L 03/22/19 12:45 Intake & Output 03/21/19 03/22/19 03/22/19 18:59 06:59 18:59 Intake Total 300 2080 Balance 300 2080 Weight 98.883 kg Intake: Intake, IV Titration 1600 Amount Sodium Chloride 0.9% 1, 1600 000 ml @ 100 mls/hr IV . Q10H LEANDRO Rx#:[id number] Oral 300 480 Other: Voiding Method Toilet Toilet Toilet # Voids 2 2 2 - Exam PHYSICAL EXAMINATION: GENERAL: The patient is alert and oriented x3, not in any acute distress. Well developed, well nourished. HEENT: Pupils are round and equally reacting to light. EOMI. No scleral icterus. No conjunctival pallor. Normocephalic, atraumatic. No pharyngeal erythema. No thyromegaly. CARDIOVASCULAR: S1 and S2 present. No murmurs, rubs, or gallops. PULMONARY: Chest is clear to auscultation, no wheezing or crackles. I didn't hear any wheezing ABDOMEN: Soft, nontender, nondistended, normoactive bowel sounds. No palpable organomegaly. MUSCULOSKELETAL: No joint swelling or deformity. EXTREMITIES: No cyanosis, clubbing, or pedal edema. NEUROLOGICAL: Gross neurological examination did not reveal any focal deficits. SKIN: No rashes. - Labs CBC & Chem 7: 03/21/19 08:09 03/21/19 08:09 Labs: Abnormal Lab Results - Last 24 Hours (Table) 03/21/19 03/21/19 03/22/19 Range/Units 17:05 19:54 06:53 POC Glucose (mg/dL) 195 H 151 H 124 H (75-99) mg/dL 03/22/19 Range/Units 11:06 POC Glucose (mg/dL) 166 H (75-99) mg/dL Microbiology - Last 24 Hours (Table) 03/21/19 08:45 Blood Culture - Preliminary Blood No Growth after 24 hours Assessment and Plan Plan: -COPD with acute exacerbation continue with systemic steroids inhalational treatments next and have an obstructive sleep apnea -History of Mnire's disease -Hypertension -Hyperlipidemia -Atrial fibrillation presently rate controlled Patient will need pharmacologic GI prophylaxis DVT prophylaxis early ambulation
[2019-03-22 16:44] LABS: Glucose,Whole Blood 144 mg/dL (75-99)
[2019-03-22 18:58] LABS: Hemoglobin A1C 5.8 % (4.0-6.0)
[2019-03-22 20:35] LABS: Glucose,Whole Blood 144 mg/dL (75-99)
[2019-03-22 20:48] VITALS: RESP 18
[2019-03-22] MEDS: ATORVASTATIN 10 MG TAB PO SCH (20:53)
[2019-03-22] MEDS ORDERED: ZOLPIDEM 10 MG TAB PO SCH (21:00)
[2019-03-23] MEDS: SODIUM CHLORIDE 0.9% 1,000 ML IV SCH (01:27)
[2019-03-23 04:27] VITALS: BP 132/73; TEMP 98
[2019-03-23] MEDS: methylPREDNISolone SOD SUCCI 125 MG/2 ML VIAL IV SCH ×2 (05:28→11:58)
[2019-03-23] MEDS: PROMETHAZ-COD 6.25-10 MG/5 ML 5 ML CUP PO SCH ×3 (05:30→12:02)
[2019-03-23] MEDS: FORMOTEROL FUMARATE 20 MCG/2 ML NEBU INHALATION SCH (07:07)
[2019-03-23] MEDS: BUDESONIDE 1 MG/2 ML NEBU INHALATION SCH (07:07)
[2019-03-23] MEDS: IPRATROPIUM-ALBUTEROL 3 ML NEB INHALATION SCH ×2 (07:07→11:16)
[2019-03-23 07:14] LABS: Glucose,Whole Blood 116 mg/dL (75-99)
[2019-03-23] MEDS: INSULIN ASPART (NovoLOG) 100 UNIT/ML VIAL SQ SCH (07:25)
[2019-03-23] MEDS: TAMSULOSIN 0.4 MG CAP.ER.24H PO SCH (08:15)
[2019-03-23] MEDS: FLUTICASONE 50MCG/SPRAY NASAL 16GM EA NOSTRIL SCH (08:15)
[2019-03-23] MEDS: FAMOTIDINE 20 MG TAB PO SCH (08:15)
[2019-03-23] MEDS: AZITHROMYCIN 500 MG TAB PO SCH (08:15)
[2019-03-23] MEDS: METOPROLOL TARTRATE 25 MG TAB PO SCH (08:15)
[2019-03-23] MEDS: LORATADINE 10 MG TAB PO SCH (08:15)
[2019-03-23] MEDS: LOSARTAN 25 MG TAB PO SCH (08:16)
[2019-03-23 11:36] VITALS: PULSE 86
--- NOTE | 2019-03-23 12:42 | P.PN ---
Subjective Progress Note Date: 03/23/19 This is a 73-year-old of white male patient with history of COPD with baseline FEV1 of 63% predicted, severe obstructive sleep apnea intolerant to CPAP treatment, history of left lung herniation related to a very vigorous cough during one of the episodes of COPD exacerbation, and patient underwent left thoracotomy closure of a diaphragmatic hernia with the patch, repair of a c ostochondral dislocation and subsequent repair of a herniated lung. Patient follows with Dr. Matrinez in the pulmonary office for his pulmonary care. He is on Trelegy, he is on maintenance dose of prednisone 10 mg daily. He had a recent computed tomography scan in December 2018 showing extensive emphysema, some limited scarring in the left lower lobe area, pseudoarthrosis at the site of the lateral left rib fracture, which was also seen on previous evaluations. Patient has a seasonal ALLERGIES, and he is on Zyrtec in conjunction with Flonase for his seasonal ALLERGIES. Patient was doing good, on his usual maintenance inhalers and breathing treatments. Recently he took a trip to [place] for [facility], and he believes he may have picked up an infection, she started complaining of increased nasal congestion, and she was treated with a round of Augmentin and steroids by his primary care physician, this was on 03/01/2019. Patient completed a course, however his symptoms did not improve, and actually his cough has progressed, and he went to see his PCP again who put him on the second course of Augmentin with steroids, and patient took 2 days of it and last night she could not stop coughing, his cough was becoming quite a bit worse. he denied any fever or chills, denied any hemoptysis. Patient came in to the emergency department for evaluation this morning on 03/21/2019. Chest x-ray was completed showing COPD with probable pulmonary arterial hypertension, prominence of the right hilum, and vague increased density along the lateral margin of the left upper lobe, there was a concern for pneumonia. Labwork was completed showing blood blood cell count of 13.1, hemoglobin of 14.2, INR is 1.0, sodium was 135, domestic electrolytes and renal profile were unremarkable, plasma lactic acid was within normal limits at 1.9, troponin was negative 1, proBNP was 183. Patient has been afebrile. Hemodynamic was stable, lung sounds reveal diffuse wheezes, and rhonchi. Patient was admitted for further inpatient treatment, and were consulted for evaluation for possibility of pneumonia, and COPD exacerbation. On 03/22/2019 I'm seeing this patient for a follow-up. The patient is doing better compared to yesterday. He is less short of breath. Less bronchospastic and wheezy his cough has subsided. CAT scan of the chest was done yesterday and there is no evidence of any pneumonia. There is diffuse emphysema. No lung masses or lesions. No pleural effusion. No other significant abnormalities have been noted. The patient is doing well. No fever. No chills. No hemoptysis. No pleurisy. No other significant events otherwise for now. He is overall improving and he remains on IV Solu-Medrol. on 03/23/2019 I'm seeing this patient for a follow-up. His cough has significantly subsided. He is ambulating. He is improved. He is coughing up some yellowish sputum that was cultured and the cultures and sensitivities are still pending. Meanwhile the patient is covered with Zithromax. No other complaints otherwise for now. No chest pain. CAT scan of the chest was noted. Objective - Vital Signs Vital signs: Vital Signs Temp 98.0 F 03/23/19 04:26 Pulse 86 03/23/19 11:35 Resp 18 03/23/19 08:00 BP 132/73 03/23/19 04:26 Pulse Ox 90 L 03/23/19 04:26 Intake & Output 03/22/19 03/23/19 03/23/19 18:59 06:59 18:59 Output Total 2 Balance -2 Output: Urine 2 Other: Voiding Method Toilet Toilet Toilet # Voids 2 2 1 - Exam GENERAL EXAM: Alert, pleasant, 74-year-old white male, on 2 L of oxygen, comfortable in no apparent distress. HEAD: Normocephalic/atraumatic. EYES: Normal reaction of pupils, equal size. Conjunctiva pink, sclera white. NOSE: Clear with pink turbinates. THROAT: No erythema or exudates. NECK: No masses, no JVD, no thyroid enlargement, no adenopathy. CHEST: No chest wall deformity. Symmetrical expansion. Patient has a healed scar across his left lower torso, and there is a soft tissue mass above the incision, related to patient's left partial lung herniation LUNGS: Equal air entry with diffuse wheezes, and some limited rhonchi CVS: Regular rate and rhythm, normal S1 and S2, no gallops, no murmurs, no rubs ABDOMEN: Soft, nontender. No hepatosplenomegaly, normal bowel sounds, no guarding or rigidity. EXTREMITIES: No clubbing, no edema, no cyanosis, 2+ pulses and upper and lower extremities. MUSCULOSKELETAL: Muscle strength and tone normal. SPINE: No scoliosis or deformity SKIN: No rashes CENTRAL NERVOUS SYSTEM: Alert and oriented -3. No focal deficits, tone is normal in all 4 extremities. PSYCHIATRIC: Alert and oriented -3. Appropriate affect. Intact judgment and insight. - Labs CBC & Chem 7: 03/21/19 08:09 03/21/19 08:09 Labs: Abnormal Lab Results - Last 24 Hours (Table) 03/22/19 03/22/19 03/23/19 Range/Units 16:43 20:33 07:12 POC Glucose (mg/dL) 144 H 144 H 116 H (75-99) mg/dL Microbiology - Last 24 Hours (Table) 03/21/19 08:45 Blood Culture - Preliminary Blood No Growth after 48 hours 03/22/19 11:45 Gram Stain - Preliminary Sputum Sputum Culture - Preliminary Assessment and Plan Plan: #1. Acute exacerbation of chronic obstructive pulmonary disease, chest x-ray showed a vague density along the lateral margin of the left upper lobe, and there was a concern for early pneumonia, he T scan was completed showing stable appearance of the chest, scattered interstitial fibrosis, and extensive emphysema, resection of multiple lower left lower lobe ribs, pseudoarthrosis, no significant abnormality. #2. Stage II COPD, with baseline FEV1 of 63% of predicted #3. Obstructive sleep apnea, with AHI score of 58 and patient is intolerant to CPAP #4. Former smoker #5. Mnire's disease #6. Hypertension #7. Hyperlipidemia #8. History of atrial fibrillation Plan discharge this patient home on Zithromax, prednisone burst taper starting with 40 mg to be tapered by 10 mg every 4 days. He is going to use Trelegy Ellipta inhalation a day. At the [facility] nebulized treatments on an as-needed basis. Promethazine with codeine for cough. Robitussin as needed. See me back in the office.
--- NOTE | 2019-03-23 15:53 | P.DS ---
Providers Date of admission: 03/21/19 09:26 Attending physician: Ted Echeverria Consults: 03/21/19 09:26 Consult Physician Routine Consulting Provider: Sugey Martinez Consult Reason/Comments: COPD Do you want consulting provider notified?: Yes Primary care physician[facility] Course: Patient was admitted for presumed exhibition clinically doing well was cleared by neurology, patient will be discharged today in stable medical condition to home on weaning dose of steroids. PHYSICAL EXAMINATION: GENERAL: The patient is alert and oriented x3, not in any acute distress. Well d eveloped, well nourished. HEENT: Pupils are round and equally reacting to light. EOMI. No scleral icterus. No conjunctival pallor. Normocephalic, atraumatic. No pharyngeal erythema. No thyromegaly. CARDIOVASCULAR: S1 and S2 present. No murmurs, rubs, or gallops. PULMONARY: Chest is clear to auscultation, no wheezing or crackles. ABDOMEN: Soft, nontender, nondistended, normoactive bowel sounds. No palpable organomegaly. MUSCULOSKELETAL: No joint swelling or deformity. EXTREMITIES: No cyanosis, clubbing, or pedal edema. NEUROLOGICAL: Gross neurological examination did not reveal any focal deficits. SKIN: No rashes. Assessment and Plan Plan: -COPD with acute exacerbation obstructive sleep apnea -Hypertension -Hyperlipidemia -Atrial fibrillation presently rate controlled Patient Condition at Discharge: Stable Plan - Discharge Summary Discharge Rx Participant: No New Discharge Prescriptions: New Promethaz-Cod 6.25-10 mg/5 ml [Phenergan with Codeine] 5 ml PO Q4H #30 ml Azithromycin [Zithromax] 500 mg PO DAILY #3 tab predniSONE 10 mg PO DAILY #30 tab Continue Tamsulosin HCl [Flomax] 0.4 mg PO BID Meclizine [Antivert] 25 mg PO TID Albuterol Inhaler [Ventolin Hfa Inhaler] 1 - 2 puff INHALATION RT-Q6H PRN PRN Reason: Shortness Of Breath Losartan Potassium [Cozaar] 25 mg PO DAILY Ipratropium-Albuterol Nebulize [Duoneb 0.5 mg-3 mg/3 ml Soln] 3 ml INHALATION RT-QID PRN PRN Reason: Shortness Of Breath Fexofenadine HCl [Melody Allergy] 180 mg PO DAILY Indapamide [Lozol] 1.25 mg PO DAILY Fluticasone/Umeclidin/Vilanter [Trelegy Ellipta 100-62.5-25] 1 puff INHALATION RT-DAILY Lovastatin [Mevacor] 40 mg PO HS Fluticasone Nasal [place] [Flonase Nasal [place]] 2 spr EA NOSTRIL DAILY Metoprolol Tartrate [Lopressor] 25 mg PO DAILY Discontinued predniSONE 10 mg PO Q48H Amoxic-Pot Clav 875-125Mg [Augmentin 875-125] 1 tab PO Q12HR Discharge Medication List Meclizine [Antivert] 25 mg PO TID 11/18/17 [History] Tamsulosin HCl [Flomax] 0.4 mg PO BID 11/18/17 [History] Albuterol Inhaler [Ventolin Hfa Inhaler] 1 - 2 puff INHALATION RT-Q6H PRN 04/11/18 [History] Losartan Potassium [Cozaar] 25 mg PO DAILY 04/11/18 [History] Ipratropium-Albuterol Nebulize [Duoneb 0.5 mg-3 mg/3 ml Soln] 3 ml INHALATION RT-QID PRN 05/17/18 [History] Fexofenadine HCl [Melody Allergy] 180 mg PO DAILY 12/13/18 [History] Fluticasone Nasal [place] [Flonase Nasal [place]] 2 spr EA NOSTRIL DAILY 03/21/19 [History] Fluticasone/Umeclidin/Vilanter [Trelegy Ellipta 100-62.5-25] 1 puff INHALATION RT-DAILY 03/21/19 [History] Indapamide [Lozol] 1.25 mg PO DAILY 03/21/19 [History] Lovastatin [Mevacor] 40 mg PO HS 03/21/19 [History] Metoprolol Tartrate [Lopressor] 25 mg PO DAILY 03/21/19 [History] Azithromycin [Zithromax] 500 mg PO DAILY #3 tab 03/23/19 [Rx] Promethaz-Cod 6.25-10 mg/5 ml [Phenergan with Codeine] 5 ml PO Q4H #30 ml 03/23/19 [Rx] predniSONE 10 mg PO DAILY #30 tab 03/23/19 [Rx] Follow up Appointment(s)/Referral(s): Quinton Gary DO [Primary Care Provider] - 3 Days (Patient to call Dr. Swann's office Sunday to schedule follow up appointment. The office is closed at time of discharge. ) Sugey Martinez MD [STAFF PHYSICIAN] - 1 Week (Patient to call Dr. Martinez's office Sunday to schedule follow up appointment. The office is closed at time of discharge.) Patient Instructions/Handouts: Prednisone (By mouth), Azithromycin (By mouth), Promethazine/Codeine (By mouth), COPD (Chronic Obstructive Pulmonary Disease) (DC) Discharge Disposition: HOME SELF-CARE
--- NOTE | 2019-03-25 02:37 | CDI ---
Documentation Clarification Form Date: 03/25/19 From: Bart Connell Phone: call to [phone] Admit Date: 03/21/2019 9:26:00 AM Patient Name: Sushant Amaral Visit Number: [id number] Discharge Date: 03/23/2019 12:16:00 PM ATTENTION: The Clinical Documentation Specialists (CDI) and [facility] Coding Staff appreciate your assistance in clarifying documentation. Please respond to the clarification below the line at the bottom and electronically sign. The CDI & [facility] Coding staff will review the response and follow-up if needed. Please note: Queries are made part of the Legal Health Record. If you have any questions, please contact the author of this message via ITS. Dr. Ted Echeverria The patient presented with the COPD Exacerbation and Patient underwent lobectomy previously for lung herniation History/Risk Factors:COPD Lab findings: Sputum Culture Gram positive cocci and gram positive bacilli. Treatment: Given Rocephin and Zithromax & D/c'd on zithromax 3 more days In your professional opinion, can you please clarify sputum culture relates to any infection? Other, please specify Unable to determine no MTDD
== END 2019-03-23 12:16 | disposition home or self-care (01) | DRG 192 ==
LOC: EC 07:54 → 3NMEDONC 09:26
PROVIDERS: ADMIT Internal Medicine; ATTEND Internal Medicine
DX: J44.1 Chronic obstructive pulmonary disease with (acute) exacerbation (principal); E78.5 Hyperlipidemia, unspecified; G47.33 Obstructive sleep apnea (adult) (pediatric); H81.01 Meniere's disease, right ear; H91.92 Unspecified hearing loss, left ear; I10 Essential (primary) hypertension; J30.2 Other seasonal allergic rhinitis; I48.0 Paroxysmal atrial fibrillation; J84.112 Idiopathic pulmonary fibrosis; N40.0 Benign prostatic hyperplasia without lower urinary tract symptoms; Z79.899 Other long term (current) drug therapy; Z79.52 Long term (current) use of systemic steroids; Z80.3 Family history of malignant neoplasm of breast; Z87.891 Personal history of nicotine dependence; Z99.81 Dependence on supplemental oxygen; Z81.8 Family history of other mental and behavioral disorders; Z90.89 Acquired absence of other organs; Z98.890 Other specified postprocedural states
CPT/HCPCS: 36415; 71046; 71250; 80053; 83036; 83605; 83735; 83880; 84484; 85025; 85610; 85730; 87040; 87070; 87205; 93005; 94640; 96361; 96374; 99291

== ENCOUNTER → 2019-06-27 | Outpatient (CLI) | payer MEDICARE ==
--- NOTE | 2019-06-27 18:26 | MR ---
EXAMINATION TYPE: MR lumbar spine wo con DATE OF EXAM: 06/27/2019 COMPARISON: 08/13/2014 HISTORY: Disc degeneration / Low back pain CONTRAST: 0 mL intravenous Gadavist. TECHNIQUE: Multiplanar, multisequence images of the lumbar spine were acquired. FINDINGS: L5-S1: Down narrowing of the disc space is present. Facet hypertrophy is present. No spinal canal ivy nosis is evident. No significant disc bulge is present. L4-L5: There is a grade 1 spondylolisthesis of L5 for anterior on L5. Disc uncovering is mild anterio r thecal sac flattening. Facet hypertrophy has posterior lateral thecal sac compression. Some mild la teral canal narrowing may be present. There is severe right and mild left foraminal stenosis. L3-L4: There is broad-based disc bulge with moderate anterior thecal sac compression. Facet hypertrop hy is posterior-lateral thecal sac impression. Moderate right foraminal stenosis is present. L2-L3: There is narrowing of the disc height. Minimal disc bulges anterior thecal sac contact. There is mild facet hypertrophy with posterior lateral thecal sac compression. Mild right foraminal narrowi ng is present L1-L2: Mild disc bulge has mild anterior thecal sac contact. No spinal canal stenosis or neural lily inal stenosis is present. T12-L1: No significant disc bulge or disc herniation. No spinal canal stenosis. No foraminal stenos is. IMPRESSION: 1. Grade 1 spondylolisthesis of L4 anteriorly on L5. Mild lateral canal narrowing due to facet hypert rophy and ligamentum flavum laxity may be present. 2. Foraminal stenosis right L3-4, L4-5 and L5-S1 is present. 3. Degenerative disc changes L5-4 L4-5 and to a milder degree L5-S1. 4. Findings are stable from 2013.
== END | disposition home or self-care (01) ==
LOC: RADMRIMAIN 13:26
PROVIDERS: ATTEND Family Medicine
DX: M48.061 Spinal stenosis, lumbar region without neurogenic claudication (principal); M48.07 Spinal stenosis, lumbosacral region; M43.16 Spondylolisthesis, lumbar region; M51.36 Other intervertebral disc degeneration, lumbar region; M51.37 Other intervertebral disc degeneration, lumbosacral region
CPT/HCPCS: 72148

== ENCOUNTER → 2020-07-19 | Outpatient (CLI) | payer MEDICARE ==
--- NOTE | 2020-07-19 11:28 | CTL ---
EXAMINATION TYPE: CT Low Dose Lung DATE OF EXAM ORDERED: 07/19/2020 HISTORY: Personal history tobacco use. Lung cancer screening CT DLP: 133.[address] CTDI: 3.8 mGy Automated exposure control for dose reduction was used. SCREENING VISIT: 1 COMPARISON: CT 03/21/2019 TECHNIQUE: Low dose computed tomography scan was performed through the chest at 1 mm thick sections a nd reconstructed images in the coronal plane at [address] DIAGNOSTIC QUALITY: Satisfactory FINDINGS: LUNG NODULES: None. LUNGS: COPD: Severity: Moderate Fibrosis: Severity: Moderate Lymph nodes: None Other findings: Postop changes are noted as on prior CT, local herniation of lung present posterior l ateral left lung base. RIGHT PLEURAL SPACE: Effusion: None Calcification: None Thickening: Present Pneumothorax: None LEFT PLEURAL SPACE: Effusion: None Calcification: None Thickening: Resident Pneumothorax: None HEART: Heart Size: Normal Coronary calcification: Mild Pericardial effusion: None OTHER FINDINGS: Upper abdomen: Within normal limits Bony thorax: Thoracic spondylosis noted Supraclavicular region: Unremarkable Other: IMPRESSION: Negative FOLLOW UP CT CHEST RECOMMENDATION: [address] LUNG RAD: 1
== END | disposition home or self-care (01) ==
LOC: RADCTMAIN 09:04
PROVIDERS: ATTEND Internal Medicine Critical Care Medicine
DX: Z12.2 Encounter for screening for malignant neoplasm of respiratory organs (principal); Z87.891 Personal history of nicotine dependence

== ENCOUNTER → 2021-02-17 | Outpatient (CLI) | payer MEDICARE ==
[2021-02-17 12:05] LABS: African American GFR (CKD) >90 (>60 ml/min/1.73 sqM); Blood Urea Nitrogen 16 mg/dL (9-20); Non-African American GFR(CKD) 80 (>60 ml/min/1.73 sqM)
--- NOTE | 2021-02-17 12:46 | CT ---
ICD device is 02/17/2021: EXAMINATION TYPE: CT chest w con DATE OF EXAM: 02/17/2021 COMPARISON: HISTORY: Visible left sided chest abnormalities when coughing or taking a deep breath his tory of herniated lung/diaphragm with rib fractures and surgery in 2018. CT DLP: 688 mGycm Automated exposure control for dose reduction was used. CONTRAST: CT scan of the chest is performed with IV Contrast, patient injected with 100 mL of Isovue M300. FINDINGS: LUNGS: Resection of multiple lower left lower lobe ribs. There is pseudoarthrosis noted. There is pro tuberant lung at the site of rib resection. Emphysematous changes noted within the lung apices. No ev idence for focal mass or infiltrate. No pulmonary nodule. MEDIASTINUM: There are no greater than 1 cm hilar or mediastinal lymph nodes. No pericardial effusi on is seen. Thoracic aorta is of normal caliber. The heart is not enlarged. UPPER ABDOMEN: No significant abnormality appreciated. OTHER: No additional significant abnormality is seen. IMPRESSION: 1. there is resection of multiple left lower ribs with protuberant/herniated lung at the site of rib resection. The overall appearance is stable relative to prior examination.
== END | disposition home or self-care (01) ==
LOC: RADCTMAIN 11:26
PROVIDERS: ATTEND Internal Medicine Critical Care Medicine
DX: R06.00 Dyspnea, unspecified (principal)
CPT/HCPCS: 82565; 84520; 71260; 36415; Q9967

== ENCOUNTER → 2021-04-11 | Outpatient (CLI) | payer MEDICARE ==
--- NOTE | 2021-04-11 12:18 | FL ---
EXAMINATION TYPE: FL barium swallow w video DATE OF EXAM: 04/11/2021 MODIFIED SWALLOW / DEGLUTITION STUDY CLINICAL HISTORY: Dysphagia. TECHNIQUE: Deglutition study is performed utilizing thin liquid barium, honey and nectar thick liqui d barium, barium thick applesauce, and barium coated cracker. 1.27 minutes of fluoro time and 0 imag es obtained. COMPARISON: None. FINDINGS: The oral and pharyngeal phases show satisfactory initiation and propagation with all modali ties tested. Prominent cricopharyngeal bar is incidentally noted. Normal mastication is seen with clyde id modalities tested. There is no evidence of penetration or aspiration with any modality tested. No significant pharyngeal residue was appreciated. IMPRESSION: No penetration or aspiration observed. Please refer to speech therapist notes for furthe r details if necessary.
== END | disposition home or self-care (01) ==
LOC: RADFLMAIN 10:23
PROVIDERS: ATTEND Family Medicine
DX: R13.10 Dysphagia, unspecified (principal)
CPT/HCPCS: 74230

== ENCOUNTER 2021-05-31 04:46 | Emergency (ER) | payer MEDICARE ==
[2021-05-31] MEDS ORDERED: HYDROmorphone 1 MG/ML 1 ML SYRINGE IM STA (05:18)
[2021-05-31] MEDS ORDERED: ACETAMINOPHEN TAB 500 MG TAB PO STA (05:18)
--- NOTE | 2021-05-31 05:51 | ED ---
Back Pain [facility] - General Chief Complaint: Back Pain/Injury Stated Complaint: back pain Time Seen by Provider: 05/31/21 04:54 Source: patient, family, RN notes reviewed, old records reviewed Limitations: no limitations - History of Present Illness Initial Comments: This is a 76-year-old male to the ER for evaluation. Patient presents today for evaluation regards to severe back pain. Patient of fall 3 days ago left hip left back pain. Patient has history of chronic back disease. Patient takes Lopid. The pain is progressed over the last 2 days. Patient can stand up is having difficulty walking and ambulating secondary to severe pain MD Complaint: back pain, fall -: days(s) Similar Symptoms Previously: Yes Place: home Radiation: buttocks, left leg Severity: severe Severity scale (1-10): 10 Quality: sharp, aching Consistency: constant Improves With: none Worsens With: none Context: fall Associated Symptoms: denies other symptoms - Related Data Home Medications Medication Instructions Recorded Confirmed Meclizine [Antivert] 25 mg PO TID 11/18/17 03/21/19 Tamsulosin HCl [Flomax] 0.4 mg PO BID 11/18/17 03/21/19 Albuterol Inhaler (Mhu) [Ventolin 1 - 2 puff INHALATION RT-Q6H PRN 04/11/18 03/21/19 Hfa Inhaler (Mhu)] Losartan Potassium [Cozaar] 25 mg PO DAILY 04/11/18 03/21/19 Ipratropium-Albuterol Nebulize 3 ml INHALATION RT-QID PRN 05/17/18 03/21/19 [Duoneb 0.5 mg-3 mg/3 ml Soln] Fexofenadine HCl [Melody Allergy] 180 mg PO DAILY 12/13/18 03/21/19 Fluticasone Nasal Collins [Flonase 2 spr EA NOSTRIL DAILY 03/21/19 03/21/19 Nasal Collins] Fluticasone/Umeclidin/Vilanter 1 puff INHALATION RT-DAILY 03/21/19 03/21/19 [Trelegy Ellipta 100-62.5-25] Indapamide [Lozol] 1.25 mg PO DAILY 03/21/19 03/21/19 Lovastatin [Mevacor] 40 mg PO HS 03/21/19 03/21/19 Metoprolol Tartrate [Lopressor] 25 mg PO DAILY 03/21/19 03/21/19 Previous Rx's Medication Instructions Recorded Azithromycin [Zithromax] 500 mg PO DAILY #3 tab 03/23/19 Promethaz-Cod 6.25-10 mg/5 ml 5 ml PO Q4H #30 ml 03/23/19 [Phenergan with Codeine] predniSONE 10 mg PO DAILY #30 tab 03/23/19 Allergies Allergy/AdvReac Type Severity Reaction Status Date / Time No Known Allergies Allergy Verified 05/31/21 04:51 Review of Systems ROS Statement: Those systems with pertinent positive or pertinent negative responses have been documented in the HPI. ROS Other: All systems not noted in ROS Statement are negative. Past Medical History Past Medical History: Atrial Fibrillation, COPD, Hearing Disorder / Deafness, Hyperlipidemia, Hypertension, Prostate Disorder, Respiratory Disorder Additional Past Medical History / Comment(s): Home oxygen pt uses prn, chronic steroid use, paroxysmal Afib, menieres disease, hiatal hernia, pt denies past CHF, BENEDICT-uses oxygen [place], moderate mitral regurg, mild tricuspid regurg, L pleural effusion/loculated and had pigtail drains, past fluid collection along pleura abdominal wall musculature, BPH, L ear deafness, IROQUOIS R ear with aide. History of Any Multi-Drug Resistant Organisms: None Reported Past Surgical History: Hernia Repair, Tonsillectomy Additional Past Surgical History / Comment(s): cyst removed R thumb, right foot implant great toe, left thoracotomy closure of diaphragmatic hernia with patch, repair of costochondral dislocation with subsequent lung herniation November 22 2017, colonoscopies. cataracts both eyes Past Anesthesia/Blood Transfusion Reactions: No Reported Reaction Past Psychological History: No Psychological Hx Reported Smoking Status: Former smoker Past Alcohol Use History: None Reported Past Drug Use History: None Reported - Past Family History Mother Family Medical History: Dementia Additional Family Medical History / Comment(s): breast cancer Father Family Medical History: No Reported History General Exam - General Exam Comments Initial Comments: Patient does have mild bruising to the left lateral aspect of his back left hip Limitations: no limitations General appearance: alert, in no apparent distress Head exam: Present: atraumatic, normocephalic, normal inspection Eye exam: Present: normal appearance, PERRL, EOMI. Absent: scleral icterus, conjunctival injection, periorbital swelling ENT exam: Present: normal exam, mucous membranes moist Neck exam: Present: normal inspection. Absent: tenderness, meningismus, lymphadenopathy Respiratory exam: Present: normal lung sounds bilaterally. Absent: respiratory distress, wheezes, rales, rhonchi, stridor Cardiovascular Exam: Present: regular rate, normal rhythm, normal heart sounds. Absent: systolic murmur, diastolic murmur, rubs, gallop, clicks GI/Abdominal exam: Present: soft, normal bowel sounds. Absent: distended, tenderness, guarding, rebound, rigid Extremities exam: Present: normal inspection, full ROM, normal capillary refill. Absent: tenderness, pedal edema, joint swelling, calf tenderness Back exam: Present: normal inspection Neurological exam: Present: alert, oriented X3, CN II-XII intact Psychiatric exam: Present: normal affect, normal mood Skin exam: Present: warm, dry, intact, normal color. Absent: rash Course Vital Signs 05/31/21 05/31/21 04:46 05:07 Temperature 98.4 F Pulse Rate 89 Respiratory 28 H 20 Rate Blood Pressure 162/88 O2 Sat by Pulse 95 Oximetry - Reevaluation(s) Reevaluation #1: 05/31/21 06:06 Medical records reviewed Reevaluation #2: 05/31/21 06:06 Patient's pain is currently improved 05/31/21 06:15 Patient feels good as far as his pain in his been able to amply without difficulty Reevaluation #3: 05/31/21 06:15 Spoke with patient and his regarding patient's findings. Patient's and family questions are answered and can be discharged home Medical Decision Making - Medical Decision Making 76 male DF for evaluation 2 days status post fall. Patient is having left hip pain left pelvic pain although improved here in the emergency department. Patient will be given pain medication continued upon discharge - Radiology Data Radiology results: report reviewed (CT pelvis and left hip are negative for significant new traumatic injury), image reviewed Disposition Clinical Impression: COPD (chronic obstructive pulmonary disease), Mid back pain, Left hip pain, Back contusion Disposition: HOME SELF-CARE Instructions (If sedation given, give patient instructions): Acute Low Back Pain (ED) Is patient prescribed a controlled substance at d/c from ED?: No Referrals: Quinton Gary DO [Primary Care Provider] - 1-2 days
--- NOTE | 2021-05-31 06:07 | CT ---
EXAMINATION TYPE: CT pelvis wo con DATE OF EXAM: 05/31/2021 COMPARISON: CT abdomen pelvis 12/25/2017 HISTORY: pain CT DLP: 651.1 mGycm Automated exposure control for dose reduction was used. There are some sigmoid diverticula. There is no sign of diverticulitis. There is no free fluid in the pelvis. Urinary bladder is intact. There is fat containing left inguinal hernia. There are spondylotic changes in the lower lumbar spine. There is slight levoscoliosis in the lumbar spine. The pelvic ring is intact. Sacroiliac joints are intact. The proximal left and right femur and hip joint appear intact. There is no evidence of hip fracture. IMPRESSION: No evidence of pelvic fracture. Degenerative hypertrophic changes in the lumbar spine. No evidence of hip fracture. No adverse change compared to old CT scan.
--- NOTE | 2021-05-31 06:11 | CT ---
EXAMINATION TYPE: CT hip LT wo con DATE OF EXAM: 05/31/2021 COMPARISON: None HISTORY: pain CT DLP: 692.1 mGycm Automated exposure control for dose reduction was used. Images obtained from the mid ileum to the mid shaft of the femur without contrast. The left iliac bone is intact. Acetabulum is intact. Proximal femur has normal density without eviden ce of a fracture. I see no focal bone destruction. There is no evidence of a soft tissue mass. There is fat containing left inguinal hernia that is slightly increased in size compared to the old a omen CT scan of 2018. Soft tissues of the left thigh appear intact. There is no evidence of a hematoma. IMPRESSION: No fracture. No evidence of a hematoma. Left inguinal hernia contains fat. There is some sigmoid dive rticulosis without diverticulitis.
[2021-05-31] MEDS ORDERED: Acetaminophen-Codeine 300-30mg TAB PO STA (06:16)
[2021-05-31] MEDS ORDERED: ACET/COD 300 MG/30 MG STARTER PACK 6 TAB BTL PO STA (06:16)
[2021-05-31 06:54] VITALS: BP 116/66; PULSE 78; RESP 18; TEMP 98.1
== END 2021-05-31 06:40 | disposition home or self-care (01) ==
LOC: EC 04:46
DX: S20.224A Contusion of middle back wall of thorax, initial encounter (principal); M25.552 Pain in left hip; M54.6 Pain in thoracic spine; J44.9 Chronic obstructive pulmonary disease, unspecified; I10 Essential (primary) hypertension; E78.5 Hyperlipidemia, unspecified; I48.0 Paroxysmal atrial fibrillation; N40.0 Benign prostatic hyperplasia without lower urinary tract symptoms; Z79.52 Long term (current) use of systemic steroids; Z79.51 Long term (current) use of inhaled steroids; Z79.899 Other long term (current) drug therapy; Z80.3 Family history of malignant neoplasm of breast; Z87.891 Personal history of nicotine dependence; W19.XXXA Unspecified fall, initial encounter; Y92.009 Unspecified place in unspecified non-institutional (private) residence as the place of occurrence of the external cause
CPT/HCPCS: 72192; 73700; 96372; 99284; J1170

== ENCOUNTER 2021-08-30 06:24 | Inpatient (IN) | payer MEDICARE ==
[2021-08-30] MEDS ORDERED: IPRATROPIUM-ALBUTEROL 3 ML NEB INHALATION STA (06:49)
[2021-08-30] MEDS ORDERED: ACETAMINOPHEN TAB 500 MG TAB PO STA (06:50)
--- NOTE | 2021-08-30 06:54 | ED ---
General Adult HPI - General Chief complaint: Shortness of Breath Stated complaint: KUNAL Time Seen by Provider: 08/30/21 06:25 Source: patient, EMS Mode of arrival: EMS Limitations: no limitations - History of Present Illness Initial comments: 76-year-old male with a past medical history of atrial fibrillation, hyperlipidemia, hypertension, COPD with when necessary home oxygen at 2 L presents to the emergency room for a chief complaint of shortness of breath. Patient has had a cough and shortness of breath for the past 5 days. He was seen at his doctor's 5 days ago and given an antibiotic and steroid however they do not have covid testing. Patient reports that it worsened in the past 48 hours. Patient has been having fevers.Patient has no other complaints at this time including shortness of breath, chest pain, abdominal pain, nausea or vomit ing, headache, or visual changes. - Related Data Home Medications Medication Instructions Recorded Confirmed Meclizine [Antivert] 25 mg PO TID 11/18/17 08/30/21 Tamsulosin HCl [Flomax] 0.8 mg PO DAILY 11/18/17 08/30/21 Losartan Potassium [Cozaar] 25 mg PO DAILY 04/11/18 08/30/21 Fexofenadine HCl [Melody Allergy] 180 mg PO DAILY 12/13/18 08/30/21 Fluticasone/Umeclidin/Vilanter 1 puff INHALATION RT-DAILY 03/21/19 08/30/21 [Trelegy Ellipta 100-62.5-25] Indapamide [Lozol] 1.25 mg PO DAILY 03/21/19 08/30/21 Metoprolol Tartrate [Lopressor] 37.5 mg PO BID 03/21/19 08/30/21 Albuterol Sulfate [Ventolin HFA] 2 puff INHALATION RT-Q6H PRN 08/30/21 08/30/21 Amoxic-Pot Clav 875-125Mg 1 tab PO Q12HR 08/30/21 08/30/21 [Augmentin 875-125] DULoxetine HCL [Cymbalta] 30 mg PO DAILY 08/30/21 08/30/21 Finasteride [Proscar] 5 mg PO DAILY 08/30/21 08/30/21 Pravastatin Sodium [Pravachol] 10 mg PO HS 08/30/21 08/30/21 guaiFENesin [Mucinex] 1,200 mg PO BID PRN 08/30/21 08/30/21 predniSONE 10 mg PO DIRECTED 08/30/21 08/30/21 predniSONE See Taper PO DAILY 08/30/21 08/30/21 Allergies Allergy/AdvReac Type Severity Reaction Status Date / Time No Known Allergies Allergy Verified 08/30/21 07:30 Review of Systems ROS Statement: Those systems with pertinent positive or pertinent negative responses have been documented in the HPI. ROS Other: All systems not noted in ROS Statement are negative. Past Medical History Past Medical History: Atrial Fibrillation, COPD, Hearing Disorder / Deafness, Hyperlipidemia, Hypertension, Prostate Disorder, Respiratory Disorder Additional Past Medical History / Comment(s): Home oxygen pt uses prn, chronic steroid use, paroxysmal Afib, menieres disease, hiatal hernia, pt denies past CHF, BENEDICT-uses oxygen [place], moderate mitral regurg, mild tricuspid regurg, L pleural effusion/loculated and had pigtail drains, past fluid collection along pleura abdominal wall musculature, BPH, L ear deafness, [id number] R ear with aide. History of Any Multi-Drug Resistant Organisms: None Reported Past Surgical History: Hernia Repair, Tonsillectomy Additional Past Surgical History / Comment(s): cyst removed R thumb, right foot implant great toe, left thoracotomy closure of diaphragmatic hernia with patch, repair of costochondral dislocation with subsequent lung herniation November 22 2017, colonoscopies. cataracts both eyes Past Anesthesia/Blood Transfusion Reactions: No Reported Reaction Past Psychological History: No Psychological Hx Reported Smoking Status: Former smoker Past Alcohol Use History: None Reported Past Drug Use History: None Reported - Past Family History Mother Family Medical History: Dementia Additional Family Medical History / Comment(s): breast cancer Father Family Medical History: No Reported History General Exam Limitations: no limitations General appearance: alert, in no apparent distress Head exam: Present: atraumatic Eye exam: Present: normal appearance, PERRL, EOMI. Absent: scleral icterus, conjunctival injection ENT exam: Present: normal exam, mucous membranes moist Neck exam: Present: normal inspection, full ROM. Absent: tenderness Respiratory exam: Present: wheezes. Absent: respiratory distress Cardiovascular Exam: Present: regular rate, normal rhythm, normal heart sounds GI/Abdominal exam: Present: soft, normal bowel sounds. Absent: distended, tenderness Course Vital Signs 08/30/21 08/30/21 08/30/21 06:27 07:30 07:43 Temperature 100.6 F H Pulse Rate 103 H 104 H 110 H Respiratory 28 H 22 22 Rate Blood Pressure 151/100 O2 Sat by Pulse 93 L Oximetry EKG Findings - EKG Comments: EKG Findings:: Sinus tachycardia, ventricular rate 101, [place] interval 140, QTC 420 Medical Decision Making - Medical Decision Making Is 98 and 93% on 6 L nasal cannula. He does have a fever 100.6, given Tylenol. Reflexive tachycardia noted. CBC is unremarkable. CMP does show sodium of 125, will be started on low maintenance fluids. Covid is positive. Chest x-ray shows no acute process. Given increased oxygen requirement patient will be admitted for coronavirus. Started on Decadron, vitamins, and will consult pulmonology and infectious disease. Patient will be admitted to [facility] Case discussed with Arlene who does request that infectious disease and pul monology be consulted. Also would like dimer for prognostic purposes. - Lab Data Result diagrams: 08/30/21 06:36 08/30/21 06:36 Lab Results 08/30/21 08/30/21 08/30/21 Range/Units 06:36 06:36 06:36 WBC 12.2 H (3.8-10.6) k/uL RBC 5.00 (4.30-5.90) m/uL Hgb 15.8 (13.0-17.5) gm/dL Hct 45.9 (39.0-53.0) % MCV 91.8 (80.0-100.0) fL MCH 31.6 (25.0-35.0) pg MCHC 34.4 (31.0-37.0) g/dL RDW 13.2 (11.5-15.5) % Plt Count 287 (150-450) k/uL MPV 6.9 Neutrophils % 88 % Lymphocytes % 5 % Monocytes % 6 % Eosinophils % 1 % Basophils % 0 % Neutrophils # 10.7 H (1.3-7.7) k/uL Lymphocytes # 0.6 L (1.0-4.8) k/uL Monocytes # 0.7 (0-1.0) k/uL Eosinophils # 0.1 (0-0.7) k/uL Basophils # 0.0 (0-0.2) k/uL PT 10.9 (9.0-12.0) sec INR 1.0 (<1.2) APTT 25.5 (22.0-30.0) sec Sodium 125 L (137-145) mmol/L Potassium 4.5 (3.5-5.1) mmol/L Chloride 93 L (98-107) mmol/L Carbon Dioxide 23 (22-30) mmol/L Anion Gap 9 mmol/L BUN 23 H (9-20) mg/dL Creatinine 0.92 (0.66-1.25) mg/dL Est GFR (CKD-EPI)AfAm >90 (>60 ml/min/1.73 sqM) Est GFR (CKD-EPI)NonAf 80 (>60 ml/min/1.73 sqM) Glucose 116 H (74-99) mg/dL Plasma Lactic Acid Geo (0.7-2.0) mmol/L Calcium 8.8 (8.4-10.2) mg/dL Total Bilirubin 0.7 (0.2-1.3) mg/dL AST 46 (17-59) U/L ALT 24 (4-49) U/L Alkaline Phosphatase 43 (38-126) U/L Total Protein 6.5 (6.3-8.2) g/dL Albumin 3.5 (3.5-5.0) g/dL Coronavirus (PCR) (Not Detectd) 08/30/21 08/30/21 Range/Units 06:36 06:38 WBC (3.8-10.6) k/uL RBC (4.30-5.90) m/uL Hgb (13.0-17.5) gm/dL Hct (39.0-53.0) % MCV (80.0-100.0) fL MCH (25.0-35.0) pg MCHC (31.0-37.0) g/dL RDW (11.5-15.5) % Plt Count (150-450) k/uL MPV Neutrophils % % Lymphocytes % % Monocytes % % Eosinophils % % Basophils % % Neutrophils # (1.3-7.7) k/uL Lymphocytes # (1.0-4.8) k/uL Monocytes # (0-1.0) k/uL Eosinophils # (0-0.7) k/uL Basophils # (0-0.2) k/uL PT (9.0-12.0) sec INR (<1.2) APTT (22.0-30.0) sec Sodium (137-145) mmol/L Potassium (3.5-5.1) mmol/L Chloride (98-107) mmol/L Carbon Dioxide (22-30) mmol/L Anion Gap mmol/L BUN (9-20) mg/dL Creatinine (0.66-1.25) mg/dL Est GFR (CKD-EPI)AfAm (>60 ml/min/1.73 sqM) Est GFR (CKD-EPI)NonAf (>60 ml/min/1.73 sqM) Glucose (74-99) mg/dL Plasma Lactic Acid Geo 1.2 (0.7-2.0) mmol/L Calcium (8.4-10.2) mg/dL Total Bilirubin (0.2-1.3) mg/dL AST (17-59) U/L ALT (4-49) U/L Alkaline Phosphatase (38-126) U/L Total Protein (6.3-8.2) g/dL Albumin (3.5-5.0) g/dL Coronavirus (PCR) Detected A (Not Detectd) Disposition Clinical Impression: COVID, Fever, Acute respiratory failure due to COVID-19, Hyponatremia, Hypoxia Disposition: ADMITTED IP TO THIS HOSP Referrals: Quinton Gary DO [Primary Care Provider] - 1-2 days Time of Disposition: 07:55
[2021-08-30 07:05] LABS: Basophils % (A) 0 %; Eosinophils # (A) 0.1 k/uL (0-0.7); Eosinophils % (A) 1 %; HCT 45.9 % (39.0-53.0); HGB 15.8 gm/dL (13.0-17.5); Lymphocytes # (A) 0.6 k/uL (1.0-4.8); Lymphocytes % (A) 5 %; MCH 31.6 pg (25.0-35.0); MCHC 34.4 g/dL (31.0-37.0); MCV 91.8 fL (80.0-100.0); Mean Platelet Volume 6.9; Monocytes # (A) 0.7 k/uL (0-1.0); Monocytes % (A) 6 %; Neutrophils # (A) 10.7 k/uL (1.3-7.7); Neutrophils % (A) 88 %; Platelet Count 287 k/uL (150-450); RDW 13.2 % (11.5-15.5); WBC 12.2 k/uL (3.8-10.6)
[2021-08-30 07:25] LABS: Partial Thromboplastin Time 25.5 sec (22.0-30.0); Prothrombin Time 10.9 sec (9.0-12.0)
[2021-08-30] MEDS ORDERED: DEXAMETHASONE SOD PHOSPHATE 4 MG/ML 1 ML VIAL IVP STA (07:27)
[2021-08-30 07:32] LABS: ALT 24 U/L (4-49); AST 46 U/L (17-59); African American GFR (CKD) >90 (>60 ml/min/1.73 sqM); Albumin 3.5 g/dL (3.5-5.0); Alkaline Phosphatase 43 U/L (38-126); Anion Gap 9 mmol/L; Blood Urea Nitrogen 23 mg/dL (9-20); Calcium 8.8 mg/dL (8.4-10.2); Carbon Dioxide 23 mmol/L (22-30); Chloride 93 mmol/L (98-107); Glucose 116 mg/dL (74-99); Non-African American GFR(CKD) 80 (>60 ml/min/1.73 sqM); Potassium 4.5 mmol/L (3.5-5.1); Sodium 125 mmol/L (137-145); Total Bilirubin 0.7 mg/dL (0.2-1.3); Total Protein 6.5 g/dL (6.3-8.2)
--- NOTE | 2021-08-30 07:44 | XR ---
EXAMINATION TYPE: XR chest 2V DATE OF EXAM: 08/30/2021 COMPARISON: Chest CT February 17, 2021. Chest x-ray March 21, 2019. HISTORY: Difficulty in breathing. TECHNIQUE: Frontal and lateral views of the chest are obtained. FINDINGS: Herniated lung left lung base redemonstrated. There is chronic emphysematous and parenchym al fibrotic change without suspicious focal air space opacity, pleural effusion, or pneumothorax seen . The cardiac silhouette size is stable and within normal limits. Multilevel spurring in thoracic sp ine redemonstrated. IMPRESSION: Chronic changes without acute pulmonary process.
[2021-08-30] MEDS ORDERED: NALOXONE 0.4 MG/ML 1 ML VIAL IV PRN (07:56)
[2021-08-30] MEDS ORDERED: IPRATROPIUM-ALBUTEROL 3 ML NEB INHALATION SCH (08:00)
[2021-08-30] MEDS ORDERED: ALBUTEROL HFA INHALER INHALATION PRN (08:54)
[2021-08-30 09:22] LABS: Magnesium 1.7 mg/dL (1.6-2.3)
[2021-08-30] MEDS: SODIUM CHLORIDE 0.9% 1,000 ML IV SCH ×2 (09:37→22:36)
[2021-08-30] MEDS: MECLIZINE 25 MG TAB PO SCH ×3 (09:38→21:10)
[2021-08-30] MEDS: LOSARTAN 25 MG TAB PO SCH (09:39)
[2021-08-30] MEDS ORDERED: IPRATROPIUM-ALBUTEROL 3 ML NEB INHALATION PRN (09:48)
[2021-08-30] MEDS: FAMOTIDINE 20 MG TAB PO SCH ×2 (10:02→21:10)
[2021-08-30] MEDS: FINASTERIDE 5 MG TAB PO SCH (10:02)
[2021-08-30] MEDS: DULoxetine HCL 30 MG CAPSULE.DR PO SCH (10:02)
[2021-08-30] MEDS: CHOLECALCIFEROL 25 MCG (1000 IU) TABLET PO SCH (10:02)
[2021-08-30] MEDS: TAMSULOSIN 0.4 MG CAP.ER.24H PO SCH (10:02)
[2021-08-30] MEDS: LORATADINE 10 MG TAB PO SCH (10:02)
[2021-08-30] MEDS: ASCORBIC ACID 500 MG TAB PO SCH (10:02)
[2021-08-30] MEDS: ZINC SULFATE 220 MG CAP PO SCH (10:03)
--- NOTE | 2021-08-30 11:19 | P.HPIM ---
History of Present Illness 76-year-old pleasant male with known history of COPD with suicidal dysfunction at home given with complaints of shortness of breath cough without any sputum production going on for about one and half week. Patient did did get vaccinated for Covid and found to have Covid 19 pneumonia chest x-ray did not show any significant infiltrate. Patient denied any chest pain abdominal pain, diarrhea or nausea or vomiting. Patient is on Augmentin not sure why he is taking Augmentin as an outpatient. Patient is presently on 5 L of oxygen saturating at 95% and patient was having fevers with temperature of 100.6. Patient is also hyponatremic and is on hydrochlorothiazide at home. Patient was started on Decadron. D-dimer is within normal limits REVIEW OF SYSTEMS: CONSTITUTIONAL: No fever, no malaise, no fatigue. HEENT: No recent visual problems or hearing problems. Denied any sore throat. CARDIOVASCULAR: No chest pain, orthopnea, PND, no palpitations, no syncope. PULMONARY: no hemoptysis. GASTROINTESTINAL: No diarrhea, no nausea, no vomiting, no abdominal pain. NEUROLOGICAL: No headaches, no weakness, no numbness. HEMATOLOGICAL: Denies any bleeding or petechiae. GENITOURINARY: Denies any burning micturition, frequency, or urgency. MUSCULOSKELETAL/RHEUMATOLOGICAL: Denies any joint pain, swelling, or any muscle pain. ENDOCRINE: Denies any polyuria or polydipsia. The rest of the 14-point review of systems is negative. PHYSICAL EXAMINATION: GENERAL: The patient is alert and oriented x3, not in any acute distress. Well developed, well nourished. HEENT: Pupils are round and equally reacting to light. EOMI. No scleral icterus. No conjunctival pallor. Normocephalic, atraumatic. No pharyngeal erythema. No thyromegaly. CARDIOVASCULAR: S1 and S2 present. No murmurs, rubs, or gallops. PULMONARY: Mild expiratory wheezing on exam ABDOMEN: Soft, nontender, nondistended, normoactive bowel sounds. No palpable organomegaly. MUSCULOSKELETAL: No joint swelling or deformity. EXTREMITIES: No cyanosis, clubbing, or pedal edema. NEUROLOGICAL: Gross neurological examination did not reveal any focal deficits. SKIN: No rashes. Assessment and plan -Covid 19 pneumonia: Leading to hypoxic respiratory failure, patient was started on Decadron, Covid vitamins [facility] Continue with oxygen and wean off as tolerated. History of atrial fibrillation: Proximal A. fib presently sinus tach secondary to hypoxemia metoprolol dose will be increased to 50 twice a day. Patient is not on any anti-correlation at home I'll leave the decision to his fundraising coordinator and PCP I do not see any A. fib at this time. -Chronic hypercapnic respiratory failure secondary to COPD with mild acute exacerbation patient will be continued on inhalational treatments inhalational steroids and Decadron for now -Hypertension -Hyperlipidemia -Benign prostatic hypertrophy DVT prophylaxis: Lovenox Past Medical History Past Medical History: Atrial Fibrillation, COPD, Hearing Disorder / Deafness, Hyperlipidemia, Hypertension, Prostate Disorder, Respiratory Disorder Additional Past Medical History / Comment(s): Home oxygen pt uses prn, chronic steroid use, paroxysmal Afib, menieres disease, hiatal hernia, BENEDICT-uses oxygen [place], moderate mitral regurg, mild tricuspid regurg, L pleural effusion/loculated and had pigtail drains, past fluid collection along pleura abdominal wall musculature, BPH, L ear deafness, LYTTON R ear with aide. History of Any Multi-Drug Resistant Organisms: None Reported Past Surgical History: Hernia Repair, Tonsillectomy Additional Past Surgical History / Comment(s): cyst removed R thumb, right foot implant great toe, left thoracotomy closure of diaphragmatic hernia with patch, repair of costochondral dislocation with subsequent lung herniation November 22 2017, colonoscopies. cataracts both eyes Past Anesthesia/Blood Transfusion Reactions: No Reported Reaction Past Psychological History: No Psychological Hx Reported Additional Psychological History / Comment(s): . Pt has oxygen and nebulizer at home. He uses a cane prn. Retired from the [employer]. experience with the [employer], no international travel. No animal exposures Smoking Status: Former smoker Past Alcohol Use History: None Reported Additional Past Alcohol Use History / Comment(s): Pt started smoking in 1963 and quit in 2012. Past Drug Use History: None Reported - Past Family History Mother Family Medical History: Dementia Additional Family Medical History / Comment(s): breast cancer Father Family Medical History: No Reported History Medications and Allergies Home Medications Medication Instructions Recorded Confirmed Type Meclizine [Antivert] 25 mg PO TID 11/18/17 08/30/21 History Tamsulosin HCl [Flomax] 0.8 mg PO DAILY 11/18/17 08/30/21 History Losartan Potassium [Cozaar] 25 mg PO DAILY 04/11/18 08/30/21 History Fexofenadine HCl [Melody Allergy] 180 mg PO DAILY 12/13/18 08/30/21 History Fluticasone/Umeclidin/Vilanter 1 puff INHALATION RT-DAILY 03/21/19 08/30/21 History [Trelegy Ellipta 100-62.5-25] Indapamide [Lozol] 1.25 mg PO DAILY 03/21/19 08/30/21 History Metoprolol Tartrate [Lopressor] 37.5 mg PO BID 03/21/19 08/30/21 History Albuterol Sulfate [Ventolin HFA] 2 puff INHALATION RT-Q6H PRN 08/30/21 08/30/21 History Amoxic-Pot Clav 875-125Mg 1 tab PO Q12HR 08/30/21 08/30/21 History [Augmentin 875-125] DULoxetine HCL [Cymbalta] 30 mg PO DAILY 08/30/21 08/30/21 History Finasteride [Proscar] 5 mg PO DAILY 08/30/21 08/30/21 History Pravastatin Sodium [Pravachol] 10 mg PO HS 08/30/21 08/30/21 History guaiFENesin [Mucinex] 1,200 mg PO BID PRN 08/30/21 08/30/21 History predniSONE 10 mg PO DIRECTED 08/30/21 08/30/21 History predniSONE See Taper PO DAILY 08/30/21 08/30/21 History Allergies Allergy/AdvReac Type Severity Reaction Status Date / Time No Known Allergies Allergy Verified 08/30/21 07:30 Physical Exam Vitals: Vital Signs Temp Pulse Pulse Resp BP BP Pulse Ox 08/30/21 09:50 98.7 F 105 H 18 119/62 95 08/30/21 07:53 106 H 20 124/93 93 L 08/30/21 07:43 110 H 22 08/30/21 07:30 104 H 22 08/30/21 06:27 100.6 F H 103 H 28 H 151/100 93 L Intake and Output 08/29/21 08/30/21 08/30/21 22:59 06:59 14:59 Other: Weight 117.934 kg 117.934 kg Results CBC & Chem 7: 08/30/21 06:36 08/30/21 06:36 Labs: Abnormal Lab Results - Last 24 Hours (Table) 08/30/21 08/30/21 08/30/21 Range/Units 06:36 06:36 06:36 WBC 12.2 H (3.8-10.6) k/uL Neutrophils # 10.7 H (1.3-7.7) k/uL Lymphocytes # 0.6 L (1.0-4.8) k/uL Sodium 125 L (137-145) mmol/L Chloride 93 L (98-107) mmol/L BUN 23 H (9-20) mg/dL Glucose 116 H (74-99) mg/dL Lactate Dehydrogenase 687 H (313-618) U/L Coronavirus (PCR) (Not Detectd) 08/30/21 Range/Units 06:38 WBC (3.8-10.6) k/uL Neutrophils # (1.3-7.7) k/uL Lymphocytes # (1.0-4.8) k/uL Sodium (137-145) mmol/L Chloride (98-107) mmol/L BUN (9-20) mg/dL Glucose (74-99) mg/dL Lactate Dehydrogenase (313-618) U/L Coronavirus (PCR) Detected A (Not Detectd) Thrombosis Risk Factor Assmnt - Choose All That Apply Each Factor Represents 1 point: Abnormal pulmonary function (COPD), Obesity (BMI >25) Each Risk Factor Represents 3 Points: Age 75 years or older Thrombosis Risk Factor Assessment Total Risk Factor Score: 5 Thrombosis Risk Factor Assessment Level: High Risk
[2021-08-30 11:33] LABS: C Reactive Protein 20.1 mg/dL (<1.0)
[2021-08-30] MEDS: ALBUTEROL HFA INHALER INHALATION SCH ×3 (11:42→22:02)
--- NOTE | 2021-08-30 11:48 | P.CNPUL ---
History of Present Illness Consult date: 08/30/21 Requesting physician: Lu Avendano Reason for consult: dyspnea, cough, hypoxemia, pneumonia, abnormal CXR/CT Chief complaint: Shortness of breath. History of present illness: Pulmonary/critical care consultation dated 08/30/2021. 76-year-old male, who presents to the emergency department, on August 30. The patient has a history of atrial fibrillation, hyperlipidemia, hypertension, and COPD, and that she was home O2, at 2 L as needed. The patient presents to the emergency department with complaints of increasing shortness of breath, and cough, for the past 5 days. He apparently saw his doctor, 5 days ago and was given an antibiotic and steroid, but did not respond. Over the last 2 days, the patient states that his breathing has worsened. In addition, the patient has had some fevers and chills. There are no complaints of abdominal pain, nausea, vomiting, or diarrhea, or any genitourinary complaints. The patient did test positive for coronavirus on August 30. The patient did receive this vaccination against coronavirus. The patient is actually been sick for about 10 days or so. Currently labs data includes a white count of 12.2, hemoglobin hematocrit and platelet count all of which were normal. PT, INR, PTT, and d- dimer were all normal. Sodium was 125, potassium 4.5, chloride 93, CO2 23, anion gap 9, BUN 23, and creatinine 0.92. LDH was 687. C-reactive protein 20.1. The patient's chest x-ray was not really impressive, and did not show the typical infiltrates of coronavirus pneumonia. Currently, he's on 5 L nasal cannula, and also saline at 75 mL an hour. Review of Systems REVIEW OF SYSTEMS: CONSTITUTIONAL: Weakness, fever/chills. NEUROLOGIC: [ Negative.] HEENT: [ Negative.] CARDIAC: [Negative.] PULMONARY: Shortness of breath, dry cough. GI: [Negative.] : [Negative.] RHEUMATOLOGIC: [ Negative.] IMMUNOLOGIC: [ Negative.] ENDOCRINE: [Negative. ] DERMATOLOGIC: [Negative.] Past Medical History Past Medical History: Atrial Fibrillation, COPD, Hearing Disorder / Deafness, Hyperlipidemia, Hypertension, Prostate Disorder, Respiratory Disorder Additional Past Medical History / Comment(s): Home oxygen pt uses prn, chronic steroid use, paroxysmal Afib, menieres disease, hiatal hernia, [place]-uses oxygen [place], moderate mitral regurg, mild tricuspid regurg, L pleural effusion/loculated and had pigtail drains, past fluid collection along pleura abdominal wall musculature, BPH, L ear deafness, [place] R ear with aide. History of Any Multi-Drug Resistant Organisms: None Reported Past Surgical History: Hernia Repair, Tonsillectomy Additional Past Surgical History / Comment(s): cyst removed R thumb, right foot implant great toe, left thoracotomy closure of diaphragmatic hernia with patch, repair of costochondral dislocation with subsequent lung herniation November 22 2017, colonoscopies. cataracts both eyes Past Anesthesia/Blood Transfusion Reactions: No Reported Reaction Past Psychological History: No Psychological Hx Reported Additional Psychological History / Comment(s): . Pt has oxygen and nebulizer at home. He uses a cane prn. Retired from the [employer] experience with the [employer], no international travel. No animal exposures Smoking Status: Former smoker Past Alcohol Use History: None Reported Additional Past Alcohol Use History / Comment(s): Pt started smoking in 1963 and quit in 2012. Past Drug Use History: None Reported - Past Family History Mother Family Medical History: Dementia Additional Family Medical History / Comment(s): breast cancer Father Family Medical History: No Reported History Medications and Allergies Home Medications Medication Instructions Recorded Confirmed Type Meclizine [Antivert] 25 mg PO TID 11/18/17 08/30/21 History Tamsulosin HCl [Flomax] 0.8 mg PO DAILY 11/18/17 08/30/21 History Losartan Potassium [Cozaar] 25 mg PO DAILY 04/11/18 08/30/21 History Fexofenadine HCl [Melody Allergy] 180 mg PO DAILY 12/13/18 08/30/21 History Fluticasone/Umeclidin/Vilanter 1 puff INHALATION RT-DAILY 03/21/19 08/30/21 History [[place] Ellipta 100-62.5-25] Indapamide [Lozol] 1.25 mg PO DAILY 03/21/19 08/30/21 History Metoprolol Tartrate [Lopressor] 37.5 mg PO BID 03/21/19 08/30/21 History Albuterol Sulfate [Ventolin HFA] 2 puff INHALATION RT-Q6H PRN 08/30/21 08/30/21 History Amoxic-Pot Clav 875-125Mg 1 tab PO Q12HR 08/30/21 08/30/21 History [Augmentin 875-125] DULoxetine HCL [Cymbalta] 30 mg PO DAILY 08/30/21 08/30/21 History Finasteride [Proscar] 5 mg PO DAILY 08/30/21 08/30/21 History Pravastatin Sodium [Pravachol] 10 mg PO HS 08/30/21 08/30/21 History guaiFENesin [Mucinex] 1,200 mg PO BID PRN 08/30/21 08/30/21 History predniSONE 10 mg PO DIRECTED 08/30/21 08/30/21 History predniSONE See Taper PO DAILY 08/30/21 08/30/21 History Allergies Allergy/AdvReac Type Severity Reaction Status Date / Time No Known Allergies Allergy Verified 08/30/21 07:30 Physical Exam Osteopathic Statement: *. No significant issues noted on an osteopathic structural exam other than those noted in the History and Physical/Consult. Vitals: Vital Signs Temp Pulse Pulse Resp BP BP Pulse Ox 08/30/21 09:50 98.7 F 105 H 18 119/62 95 08/30/21 07:53 106 H 20 124/93 93 L 08/30/21 07:43 110 H 22 08/30/21 07:30 104 H 22 08/30/21 06:27 100.6 F H 103 H 28 H 151/100 93 L Intake and Output 08/29/21 08/30/21 08/30/21 22:59 06:59 14:59 Other: Weight 117.934 kg 117.934 kg No acute distress, oriented 3. 5 L saturation is 95%. HEENT examination is grossly unremarkable. Neck supple. Full range of motion. No adenopathy thyromegaly or neck vein distention. Cardiovascular examination reveals regular rhythm rate. S1-S2 normal. No S3 or S4. No discernible murmur noted. Heart sounds are distant. Heart rate 95 bpm. Lungs reveal coarse bilateral rhonchi. No wheezes or crackles. Breath sounds equal. 5 L saturation is 95%. Abdomen soft bowel sounds are heard. No masses or tenderness. Extremities are intact. No cyanosis clubbing or edema. Skin is without rash or lesion. Neurologic examination is brief but nonfocal. Results - Laboratory Findings CBC and BMP: 08/30/21 06:36 08/30/21 06:36 PT/INR, D-dimer PT 10.9 sec (9.0-12.0) 08/30/21 06:36 INR 1.0 (<1.2) 08/30/21 06:36 D-Dimer 0.45 mg/L FEU (<0.60) 08/30/21 06:36 Abnormal lab findings: Abnormal Labs 08/30/21 08/30/21 08/30/21 06:36 06:36 06:36 WBC 12.2 H Neutrophils # 10.7 H Lymphocytes # 0.6 L Sodium 125 L Chloride 93 L BUN 23 H Glucose 116 H Lactate Dehydrogenase 687 H C-Reactive Protein 20.1 H Coronavirus (PCR) 08/30/21 06:38 WBC Neutrophils # Lymphocytes # Sodium Chloride BUN Glucose Lactate Dehydrogenase C-Reactive Protein Coronavirus (PCR) Detected A - Diagnostic Findings Chest x-ray: image reviewed Assessment and Plan Assessment: Acute hypoxemic respiratory failure, secondary to coronavirus associated pneumonia. Chest x-rays unimpressive, but computed tomography scan would likely show diffuse bilateral groundglass opacities. History of atrial fibrillation. History of hyperlipidemia. History of hypertension. History of COPD. History of BPH. History of Mnire's disease. History of obstructive sleep apnea syndrome. Valvular heart disease. Status post left thoracotomy for closure of diaphragmatic hernia. Plan: Plan dated 08/30/2021. Currently, the patient is on vitamin C, vitamin D3, and zinc. In addition, the patient's getting Decadron, and Lovenox at usual doses. The patient is beyond the window for REM. The patient is not sick enough for Baricitinib. The rest of his medications appear appropriate including his updrafts. I will add a Symbicort inhaler. Additional recommendations and suggestions are forthcoming. Although his d-dimer is not elevated, a CT angiogram or a plain CT will likely show diffuse groundglass opacities consistent with coronavirus associated pneumonia. Time with Patient: Greater than 30
[2021-08-30] MEDS ORDERED: METOPROLOL TARTRATE 12.5 MG TAB PO SCH (21:00)
[2021-08-30] MEDS: PRAVASTATIN SODIUM 20 MG TAB PO SCH (21:09)
[2021-08-30] MEDS: METOPROLOL TARTRATE 50 MG TAB PO SCH (21:12)
[2021-08-30] MEDS: SYMBICORT 160-4.5 MCG INHALER INHALATION SCH (22:16)
[2021-08-31] MEDS: TAMSULOSIN 0.4 MG CAP.ER.24H PO SCH (07:42)
[2021-08-31] MEDS: ENOXAPARIN 40 MG/0.4 ML SYRINGE SQ SCH (07:42)
[2021-08-31] MEDS: ZINC SULFATE 220 MG CAP PO SCH (07:42)
[2021-08-31] MEDS: DEXAMETHASONE SOD PHOSPHATE 10 MG/ML 1 ML VIAL IVP SCH (07:42)
[2021-08-31] MEDS: ASCORBIC ACID 500 MG TAB PO SCH (07:43)
[2021-08-31] MEDS: CHOLECALCIFEROL 25 MCG (1000 IU) TABLET PO SCH (07:43)
[2021-08-31] MEDS: DULoxetine HCL 30 MG CAPSULE.DR PO SCH (07:43)
[2021-08-31] MEDS: LORATADINE 10 MG TAB PO SCH (07:43)
[2021-08-31] MEDS: LOSARTAN 25 MG TAB PO SCH (07:43)
[2021-08-31] MEDS: MECLIZINE 25 MG TAB PO SCH ×3 (07:43→20:03)
[2021-08-31] MEDS: FAMOTIDINE 20 MG TAB PO SCH ×2 (07:43→20:03)
[2021-08-31] MEDS: FINASTERIDE 5 MG TAB PO SCH (07:43)
[2021-08-31] MEDS: METOPROLOL TARTRATE 50 MG TAB PO SCH ×2 (07:43→20:03)
[2021-08-31] MEDS: SODIUM CHLORIDE 0.9% 1,000 ML IV SCH (07:44)
[2021-08-31] MEDS ORDERED: IPRATROPIUM 0.5 MG/2.5 ML NEBU INHALATION SCH (08:00)
[2021-08-31] MEDS: ALBUTEROL HFA INHALER INHALATION SCH ×4 (08:23→21:00)
[2021-08-31] MEDS: SYMBICORT 160-4.5 MCG INHALER INHALATION SCH ×2 (08:23→21:00)
[2021-08-31] MEDS ORDERED: hydroCHLOROthiazide 12.5 MG CAP PO SCH (09:00)
--- NOTE | 2021-08-31 11:02 | P.CONS ---
History of Present Illness - Reason for Consult Consult date: 08/30/21 covid 19 pneumonia Requesting physician: Lu Avendano - Chief Complaint shortness of breath worse x 5 days - History of Present Illness History of Present Illness : Patient is a 76-year male with a past medical history significant for COPD on home O2 2 L nasal cannula, presenting to the ER early this morning for evaluation of increasing shortness of breath and c ough that has been getting worse for the last 5 days, patient has been evaluated by his PCP about 5 days ago and the patient was treated with an antibiotic and steroid however the patient did have an improvement patient complaining of worsening shortness of breath of the last 2 days on minimal exertion even at rest patient also have a cough which is moderate intensity with occasional sputum production no pleuritic chest pain no nausea no matting abdominal pain no diarrhea with the symptom the patient was evaluated by the ER physician on arrival to the ER patient did have fever 100.6 F the patient was hypoxic with O2 sats of 93% currently 94% on 5 L nasal cannula patient did have white count of 12.2 with a left shift and lymphopenia creatinine was normal liver enzymes are normal LDH was elevated CRP was 20.1 Percocet 0.10 chronic PCR came back positive patient did have a chest x-ray chronic changes without acute pulmonary process patient has been admitted to hospital infectious disease was consulted for further management Review of system: CONSTITUTIONAL: Positive for weakness fever. EYES: No complaint. ENT: No complaint. RESPIRATORY: As per history of present illness. CARDIOVASCULAR: No complaint. GENITOURINARY: No complaint. GASTROINTESTINAL: No complaint. MUSCULOSKELETAL: No complaint. INTEGUMENTARY : No complaint. PSYCHOLOGIC: No complaint. ENDOCRINE: No complaint. NEUROLOGIC: No complaint. Past medical history : Reviewed, documented below Past surgical history : Reviewed, documented below Social history: Reviewed, documented below Medications: Reviewed, as documented below EXAMINATION: Vital sigans= Reviewed and documented below GENERAL DESCRIPTION: Elderly male lying in bed, no distress. No tachypnea or accessory muscle of respiration use. HEENT: Shows Pallor , no scleral icterus. Oral mucous membrane is dry. NECK: Trachea central, no thyromegaly. LUNGS: Unlabored breathing. Coarse breath sound bilaterally with occasional wheeze. HEART: S1, S2, regular rate and rhythm. ABDOMEN: Soft, no tenderness , guarding or rigidity EXTREMITIES: No edema feet SKIN: No rash, no masses palpable. NEUROLOGICAL: The patient is awake, alert, oriented x3, mood and affect normal. LABS AND RADIOLOGY: Reviewed results see below Assessment : Patient is a 76-year male with a past medical history significant for COPD on home O2 in this patient presented to hospital with worsening shortness of breath cough in this patient symptom has going on for more than 10 days no worsening over the last 5 days and has failed respond to outpatient steroid therapy as well as antibiotic secondary to COVID-19 pneumonia chest x-ray did not show any acute finding the however in view of his underlying COPD high risk of progression into respiratory failure, patient is currently out of the therapeutic window for remdesivir per [facility] policy Plan: 1-patient to continue with the dexamethasone Lovenox zinc and ascorbic acid 2-droplet isolation and respiratory support 3-no need for systemic biotherapy We will follow on clinical condition and cultures to further adjust medication if needed Thank you for this consultation we will follow the patient along with you Past Medical History Past Medical History: Atrial Fibrillation, COPD, Hearing Disorder / Deafness, Hyperlipidemia, Hypertension, Prostate Disorder, Respiratory Disorder Additional Past Medical History / Comment(s): Home oxygen pt uses prn, chronic steroid use, paroxysmal Afib, menieres disease, hiatal hernia, [place]-uses oxygen [place], moderate mitral regurg, mild tricuspid regurg, L pleural effusion/loculated and had pigtail drains, past fluid collection along pleura abdominal wall musculature, BPH, L ear deafness, [place] R ear with aide. History of Any Multi-Drug Resistant Organisms: None Reported Past Surgical History: Hernia Repair, Tonsillectomy Additional Past Surgical History / Comment(s): cyst removed R thumb, right foot implant great toe, left thoracotomy closure of diaphragmatic hernia with patch, repair of costochondral dislocation with subsequent lung herniation November 22 2017, colonoscopies. cataracts both eyes Past Anesthesia/Blood Transfusion Reactions: No Reported Reaction Past Psychological History: No Psychological Hx Reported Additional Psychological History / Comment(s): . Pt has oxygen and nebulizer at home. He uses a cane prn. Retired from the [employer]. experience with the [employer], no international travel. No animal exposures Smoking Status: Former smoker Past Alcohol Use History: None Reported Additional Past Alcohol Use History / Comment(s): Pt started smoking in 1963 and quit in 2012. Past Drug Use History: None Reported - Past Family History Mother Family Medical History: Dementia Additional Family Medical History / Comment(s): breast cancer Father Family Medical History: No Reported History Medications and Allergies Home Medications Medication Instructions Recorded Confirmed Type Meclizine [Antivert] 25 mg PO TID 11/18/17 08/30/21 History Tamsulosin HCl [Flomax] 0.8 mg PO DAILY 11/18/17 08/30/21 History Losartan Potassium [Cozaar] 25 mg PO DAILY 04/11/18 08/30/21 History Fexofenadine HCl [Melody Allergy] 180 mg PO DAILY 12/13/18 08/30/21 History Fluticasone/Umeclidin/Vilanter 1 puff INHALATION RT-DAILY 03/21/19 08/30/21 History [[place] Ellipta 100-62.5-25] Indapamide [Lozol] 1.25 mg PO DAILY 03/21/19 08/30/21 History Metoprolol Tartrate [Lopressor] 37.5 mg PO BID 03/21/19 08/30/21 History Albuterol Sulfate [Ventolin HFA] 2 puff INHALATION RT-Q6H PRN 08/30/21 08/30/21 History Amoxic-Pot Clav 875-125Mg 1 tab PO Q12HR 08/30/21 08/30/21 History [Augmentin 875-125] DULoxetine HCL [Cymbalta] 30 mg PO DAILY 08/30/21 08/30/21 History Finasteride [Proscar] 5 mg PO DAILY 08/30/21 08/30/21 History Pravastatin Sodium [Pravachol] 10 mg PO HS 08/30/21 08/30/21 History guaiFENesin [Mucinex] 1,200 mg PO BID PRN 08/30/21 08/30/21 History predniSONE 10 mg PO DIRECTED 08/30/21 08/30/21 History predniSONE See Taper PO DAILY 08/30/21 08/30/21 History Allergies Allergy/AdvReac Type Severity Reaction Status Date / Time No Known Allergies Allergy Verified 08/30/21 07:30 Physical Exam Vitals: Vital Signs Temp Pulse Pulse Resp BP BP Pulse Ox 08/30/21 09:50 98.7 F 105 H 18 119/62 95 08/30/21 07:53 106 H 20 124/93 93 L 08/30/21 07:43 110 H 22 08/30/21 07:30 104 H 22 08/30/21 06:27 100.6 F H 103 H 28 H 151/100 93 L Intake and Output 08/29/21 08/30/21 08/30/21 22:59 06:59 14:59 Other: Weight 117.934 kg 117.934 kg Results CBC & Chem 7: 08/30/21 06:36 08/30/21 06:36 Labs: Abnormal Lab Results - Last 24 Hours (Table) 08/30/21 08/30/21 08/30/21 Range/Units 06:36 06:36 06:36 WBC 12.2 H (3.8-10.6) k/uL Neutrophils # 10.7 H (1.3-7.7) k/uL Lymphocytes # 0.6 L (1.0-4.8) k/uL Sodium 125 L (137-145) mmol/L Chloride 93 L (98-107) mmol/L BUN 23 H (9-20) mg/dL Glucose 116 H (74-99) mg/dL Lactate Dehydrogenase 687 H (313-618) U/L Coronavirus (PCR) (Not Detectd) 08/30/21 Range/Units 06:38 WBC (3.8-10.6) k/uL Neutrophils # (1.3-7.7) k/uL Lymphocytes # (1.0-4.8) k/uL Sodium (137-145) mmol/L Chloride (98-107) mmol/L BUN (9-20) mg/dL Glucose (74-99) mg/dL Lactate Dehydrogenase (313-618) U/L Coronavirus (PCR) Detected A (Not Detectd)
[2021-08-31 11:41] LABS: African American GFR (CKD) 87.7 (60.0-200.0); Albumin 3.9 g/dL (3.8-4.9); Albumin/Globulin Ratio 1.55 (1.60-3.17); Anion Gap 12.8 mmol/L (4.00-12.00); BUN/Creat Ratio 21.7 Ratio (12.00-20.00); Blood Urea Nitrogen 20.9 mg/dL (9.0-27.0); Calcium 8.7 mg/dL (8.7-10.3); Carbon Dioxide 23.5 mmol/L (21.6-31.8); Globulin 2.5 g/dL (1.6-3.3); Non-African American GFR(CKD) 75.7 (60.0-200.0); Potassium 4.2 mmol/L (3.5-5.5); Total Bilirubin 0.4 mg/dL (0.30-1.20); Total Protein 6.4 g/dL (6.2-8.2)
--- NOTE | 2021-08-31 13:21 | P.PN ---
Subjective Progress Note Date: 08/31/21 Principal diagnosis: COVID-19 pneumonia 76-year-old male, who presents to the emergency department, on August 30. The patient has a history of atrial fibrillation, hyperlipidemia, hypertension, and COPD, and that she was home O2, at 2 L as needed. The patient presents to the emergency department with complaints of increasing shortness of breath, and cough, for the past 5 days. He apparently saw his doctor, 5 days ago and was given an antibiotic and steroid, but did not respond. Over the last 2 days, the patient states that his breathing has worsened. In addition, the patient has had some fevers and chills. There are no complaints of abdominal pain, nausea, vomiting, or diarrhea, or any genitourinary complaints. The patient did test positive for coronavirus on August 30. The patient did receive this vaccination against coronavirus. The patient is actually been sick for about 10 days or so. Currently labs data includes a white count of 12.2, hemoglobin he matocrit and platelet count all of which were normal. PT, INR, PTT, and d-dimer were all normal. Sodium was 125, potassium 4.5, chloride 93, CO2 23, anion gap 9, BUN 23, and creatinine 0.92. LDH was 687. C-reactive protein 20.1. The patient's chest x-ray was not really impressive, and did not show the typical infiltrates of coronavirus pneumonia. Currently, he's on 5 L nasal cannula, and also saline at 75 mL an hour. The patient is seen today 08/31/2021 in follow-up on the regular medical floor. He is awake and alert in no acute distress. He is currently maintaining O2 saturations in the mid 90s on 5 L high flow nasal cannula. He's been afebrile. Hemodynamically stable. Sodium 129. Potassium 4.2. Creatinine 1.0. Glucose 121. AST 56. ALT 31. Calcitonin 0.10. He remains on 0.9 normal saline at 75 ML's per hour. Continued on Decadron, Lovenox, vitamin supplements. Continued on Symbicort and albuterol. He does have home O2 that he wears mainly at night at 2 L/m per nasal cannula. Objective - Vital Signs Vital signs: Vital Signs Temp 99 F 08/31/21 10:00 Pulse 68 08/31/21 10:00 Resp 18 11/03/21 10:00 BP 128/69 08/31/21 10:00 Pulse Ox 95 08/31/21 10:00 Intake & Output 08/30/21 08/31/21 08/31/21 18:59 06:59 18:59 Intake Total 836 Balance 836 Weight 117.934 kg Intake: Intake, IV Titration 600 Amount Sodium Chloride 0.9% 1, 600 000 ml @ 75 mls/hr IV . [id number] [facility] Rx#:[id number] Oral 236 Other: # Voids 2 3 - Exam Alert, pleasant 76-year-old gentleman. No acute distress, oriented 3. 5 L saturation is 95%. HEENT examination is grossly unremarkable. Neck supple. Full range of motion. No adenopathy thyromegaly or neck vein distention. Cardiovascular examination reveals regular rhythm rate. S1-S2 normal. No S3 or S4. No discernible murmur noted. Heart sounds are distant. Heart rate 68 bpm. Lungs reveal coarse bilateral rhonchi. No wheezes or crackles. Breath sounds equal. 5 L saturation is 95%. Abdomen soft bowel sounds are heard. No masses or tenderness. Extremities are intact. No cyanosis clubbing or edema. Skin is without rash or lesion. Neurologic examination is brief but nonfocal. - Labs CBC & Chem 7: 08/30/21 06:36 08/31/21 07:48 Labs: Abnormal Lab Results - Last 24 Hours (Table) 08/30/21 08/30/21 08/31/21 Range/Units 06:36 06:36 07:48 Sodium 129 L (135-145) mmol/L Chloride 93 L (96-109) mmol/L Anion Gap 12.80 H (4.00-12.00) mmol/L BUN/Creatinine Ratio 21.70 H (12.00-20.00) Ratio Glucose 121 H (70-110) mg/dL Ferritin 585.0 H (22.0-322.0) ng/mL AST 56 H (14-35) U/L Albumin/Globulin Ratio 1.55 L (1.60-3.17) g/dL Procalcitonin 0.10 H (0.02-0.09) ng/mL Assessment and Plan Assessment: 1 Acute hypoxemic respiratory failure, secondary to coronavirus associated pneumonia. Chest x-rays unimpressive, but computed tomography scan would likely show diffuse bilateral groundglass opacities. 2 History of atrial fibrillation. 3 History of hyperlipidemia. 4 History of hypertension. 5 History of COPD. Does have home oxygen at 2 L/m. He wears mainly at night 6 History of BPH. 7 History of Mnire's disease. 8 History of obstructive sleep apnea syndrome. 9 Valvular heart disease. 10 Status post left thoracotomy for closure of diaphragmatic hernia. Plan: The patient was seen and evaluated by Dr. William Currently stable from the pulmonary standpoint Titrate down the FiO2 as tolerated Continue Lovenox, Decadron, vitamin supplement Continue Symbicort, albuterol Follow-up chest x-ray, inflammatory markers in the a.m. We will continue to follow I, the cosigning physician, performed a history & physical examination of the patient. Lungs sounds coarse rhonchi bilaterally. Maintaining good O2 saturations in the 90s on 5 L/m per nasal cannula I discussed the assessment and plan of care with my nurse practitioner, Lindsay Snell. I attest to the above note as dictated by her.
--- NOTE | 2021-08-31 15:18 | P.PN ---
Subjective Progress Note Date: 08/31/21 76-year-old pleasant male with known history of COPD with suicidal dysfunction at home given with complaints of shortness of breath cough without any sputum production going on for about one and half week. Patient did did get vaccinated for Covid and found to have Covid 19 pneumonia chest x-ray did not show any significant infiltrate. Patient denied any chest pain abdominal pain, diarrhea or nausea or vomiting. Patient is on Augmentin not sure why he is taking Augmentin as an outpatient. Patient is presently on 5 L of oxygen saturating at 95% and patient was having fevers with temperature of 100.6. Patient is also hyponatremic and is on hydrochlorothiazide at home. Patient was started on Dec adron. D-dimer is within normal limits 08/31/2021 Patient is seen and evaluated in follow-up with no acute overnight issues. Patient normally wears 2 L of oxygen as needed at night in the outpatient setting and currently continues on 5 L. Discussed with nursing staff about weaning FiO2 as tolerated. Pulmonary and infectious disease following an patient is maintained on bronchodilators along with vitamin and zinc supplements and has been started on IV dexamethasone and Lovenox subcutaneous injections. Patient continues on gentle IV hydration at 75 ML per hour and will continue for now. Patient was hyponatremic at 125 and today's sodium level is 129. Labs: Sodium is 129, potassium is 4.2, creatinine is 1.0 Review of systems: Constitutional: No reports of fatigue, fever, or chills Cardiovascular: No reports of chest pain or palpitations Respiratory: No reports of worsening shortness of breath, patient continues to report cough GI: No reports of nausea, vomiting, or diarrhea : No reports of dysuria or retention Neurovascular: No reports of weakness or numbness All medications have been reviewed Active Medications Acetaminophen (Acetaminophen Tab 325 Mg Tab) 650 mg PO Q6HR PRN PRN Reason: Mild Pain or Fever > 100.5 Albuterol Sulfate (Albuterol Hfa Inhaler) 2 puff INHALATION RT-QID PRN PRN Reason: Shortness Of Breath Or Wheezing Albuterol Sulfate (Albuterol Hfa Inhaler) 2 puff INHALATION RT-QID [facility] Last Admin: 08/31/21 11:55 Dose: 2 puff Documented by: Albuterol/Ipratropium (Ipratropium-Albuterol 3 Ml Neb) 3 ml INHALATION RT-QID P RN PRN Reason: Shortness Of Breath Or Wheezing Ascorbic Acid (Ascorbic Acid 500 Mg Tab) 500 mg PO DAILY [facility] Last Admin: 08/31/21 07:43 Dose: 500 mg Documented by: Budesonide/Formoterol Fumarate (Symbicort 160-4.5 Mcg Inhaler) 2 puff INHALATION RT-BID [facility] Last Admin: 08/31/21 08:23 Dose: 2 puff Documented by: Cholecalciferol (Cholecalciferol 25 Mcg (1000 Iu) Tablet) 100 mcg PO DAILY [facility] Last Admin: 08/31/21 07:43 Dose: 100 mcg Documented by: Dexamethasone Sodium Phosphate (Dexamethasone Sod Phosphate 10 Mg/Ml 1 Ml Vial) 6 mg IVP DAILY [facility] Last Admin: 08/31/21 07:42 Dose: 6 mg Documented by: Duloxetine HCl (Duloxetine Hcl 30 Mg Capsule.Dr) 30 mg PO DAILY [facility] Last Admin: 08/31/21 07:43 Dose: 30 mg Documented by: Enoxaparin Sodium (Enoxaparin 40 Mg/0.4 Ml Syringe) 40 mg SQ DAILY [facility] Last Admin: 08/31/21 07:42 Dose: 40 mg Documented by: Famotidine (Famotidine 20 Mg Tab) 20 mg PO BID [facility] Last Admin: 08/31/21 07:43 Dose: 20 mg Documented by: Finasteride (Finasteride 5 Mg Tab) 5 mg PO DAILY [facility] Last Admin: 08/31/21 07:43 Dose: 5 mg Documented by: Guaifenesin (Guaifenesin 600 Mg Tablet.Er) 1,200 mg PO BID PRN PRN Reason: Cold Symptoms Sodium Chloride (Saline 0.9%) 1,000 mls @ 75 mls/hr IV .[id number] [facility] Last Admin: 08/31/21 07:44 Dose: 75 mls/hr Documented by: Loratadine (Loratadine 10 Mg Tab) 10 mg PO DAILY [facility] Last Admin: 08/31/21 07:43 Dose: 10 mg Documented by: Losartan Potassium (Losartan 25 Mg Tab) 25 mg PO DAILY [facility] Last Admin: 08/31/21 07:43 Dose: 25 mg Documented by: Meclizine HCl (Meclizine 25 Mg Tab) 25 mg PO TID [facility] Last Admin: 08/31/21 07:43 Dose: 25 mg Documented by: Metoprolol Tartrate (Metoprolol Tartrate 50 Mg Tab) 50 mg PO BID [facility] Last Admin: 08/31/21 07:43 Dose: 50 mg Documented by: Naloxone HCl (Naloxone 0.4 Mg/Ml 1 Ml Vial) 0.2 mg IV Q2M PRN PRN Reason: Opioid Reversal Pravastatin Sodium (Pravastatin Sodium 20 Mg Tab) 10 mg PO HS [facility] Last Admin: 08/30/21 21:09 Dose: 10 mg Documented by: Tamsulosin HCl (Tamsulosin 0.4 Mg Cap.Er.24h) 0.8 mg PO DAILY [facility] Last Admin: 08/31/21 07:42 Dose: 0.8 mg Documented by: Zinc Sulfate (Zinc Sulfate 220 Mg Cap) 220 mg PO DAILY [facility] Last Admin: 08/31/21 07:42 Dose: 220 mg Documented by: PHYSICAL EXAMINATION: GENERAL: The patient is alert and oriented x3, not in any acute distress. Well developed, well nourished. Hard of hearing HEENT: Pupils are round and equally reacting to light. EOMI. No scleral icterus. No conjunctival pallor. Normocephalic, atraumatic. No pharyngeal erythema. No thyromegaly. CARDIOVASCULAR: S1 and S2 present. No murmurs, rubs, or gallops. PULMONARY: Diminished breath sounds with scattered rhonchi noted bilaterally, no wheezing or crackles noted ABDOMEN: Soft, nontender, nondistended, normoactive bowel sounds. No palpable organomegaly. MUSCULOSKELETAL: No joint swelling or deformity. EXTREMITIES: No cyanosis, clubbing, or pedal edema. NEUROLOGICAL: Gross neurological examination did not reveal any focal deficits. SKIN: No rashes. Assessment and plan: -Covid 19 pneumonia: Leading to hypoxic respiratory failure, patient was started on Decadron, Covid vitamins patient is out of window from Remdesivir. Continue with oxygen and wean off as tolerated. Patient currently on 5 L and discussed with nursing staff about weaning as he normally wears 2 L as needed in the outpatient setting. -Hyponatremia, improving -History of atrial fibrillation: Proximal A. fib presently sinus tach secondary to hypoxemia metoprolol dose will be increased to 50 twice a day. Patient is not currently on anticoagulation in the outpatient setting for this and will leave this to discuss with his primary and nurse behavioral health care in the outpatient setting. Patient is currently maintained on Lovenox -Chronic hypercapnic respiratory failure secondary to COPD with mild acute exacerbation patient will be continued on inhalational treatments inhalational steroids and Decadron for now -Hypertension -Hyperlipidemia -Benign prostatic hypertrophy -DVT prophylaxis: Lovenox Plan: Recommend to continue with current medications and management. Infectious disease and pulmonary following. Patient is maintained on 5 L via nasal cannula and discussed with nursing staff about weaning as tolerated. Encouraged increas ed activity as tolerated and will continue with gentle IV hydration with repeat labs in the morning and a follow-up chest x-ray. Possible discharge in 24-48 hours if patient remains stable. Objective - Vital Signs Vital signs: Vital Signs Temp 98.4 F 08/31/21 05:59 Pulse 80 08/31/21 05:59 Resp 20 08/31/21 05:59 BP 111/67 08/31/21 05:59 Pulse Ox 89 L 08/31/21 05:59 Intake & Output 08/30/21 08/31/21 08/31/21 18:59 06:59 18:59 Intake Total 236 Balance 236 Weight 117.934 kg Intake: Oral 236 Other: # Voids 2 3 - Labs CBC & Chem 7: 08/30/21 06:36 08/31/21 07:48 Labs: Abnormal Lab Results - Last 24 Hours (Table) 08/30/21 08/30/21 Range/Units 06:36 06:36 Ferritin 585.0 H (22.0-322.0) ng/mL Lactate Dehydrogenase 687 H (313-618) U/L C-Reactive Protein 20.1 H (<1.0) mg/dL Procalcitonin 0.10 H (0.02-0.09) ng/mL
[2021-08-31] MEDS: guaiFENesin 600 MG TABLET.ER PO PRN (16:14)
[2021-08-31] MEDS: PRAVASTATIN SODIUM 20 MG TAB PO SCH (20:03)
--- NOTE | 2021-08-31 23:54 | PN ---
PROGRESS NOTE DATE OF SERVICE: 08/31/2021 REASON FOR FOLLOWUP: Covid 19 pneumonia. INTERVAL HISTORY: Patient is afebrile. The patient is breathing more comfortably. Denies having any chest pain. No worsening cough. No nausea, no vomiting. No abdominal pain. No diarrhea. PHYSICAL EXAMINATION: Blood pressure is 106/60 with a pulse of 103, temperature of 98.2. He is 92% on 5 L nasal cannula. General description is an elderly male up in the bed in no distress. Respiratory system: Unlabored breathing, decreased intensity of breath sounds. No wheeze. Heart S1, S2. Regular rate and rhythm. Abdomen soft, no tenderness. Extremities: No edema of the feet. LABS: BUN 20, creatinine 1.0. DIAGNOSTIC IMPRESSION/PLAN: Patient with acute COVID-19 pneumonia. Patient seems to have shown some clinical improvement compared to yesterday. The patient to continue with dexamethasone, Lovenox, zinc and ascorbic acid. Respiratory support. Monitor clinical course closely. MMODL / IJN: [id number] /
[2021-09-01] MEDS: SODIUM CHLORIDE 0.9% 1,000 ML IV SCH ×2 (00:33→09:32)
[2021-09-01] MEDS: SYMBICORT 160-4.5 MCG INHALER INHALATION SCH ×2 (07:56→20:25)
[2021-09-01] MEDS: ALBUTEROL HFA INHALER INHALATION SCH ×4 (07:56→20:25)
--- NOTE | 2021-09-01 08:05 | XR ---
EXAMINATION TYPE: XR chest 1V portable DATE OF EXAM: 09/01/2021 COMPARISON: 08/30/2020 HISTORY: Cough TECHNIQUE: Single frontal view of the chest is obtained. FINDINGS: Diffuse interstitial pattern sided patchy infiltrate. Heart is stable. No pneumothorax. No sizable pleural effusion. IMPRESSION: 1. Interstitial and patchy left-sided infiltrates are mildly progressed
[2021-09-01 08:16] LABS: African American GFR (CKD) >90 (>60 ml/min/1.73 sqM); Anion Gap 7 mmol/L; Blood Urea Nitrogen 20 mg/dL (9-20); Calcium 8.1 mg/dL (8.4-10.2); Carbon Dioxide 23 mmol/L (22-30); Chloride 95 mmol/L (98-107); Glucose 98 mg/dL (74-99); Non-African American GFR(CKD) 87 (>60 ml/min/1.73 sqM); Potassium 4.2 mmol/L (3.5-5.1); Sodium 125 mmol/L (137-145)
[2021-09-01] MEDS: ENOXAPARIN 40 MG/0.4 ML SYRINGE SQ SCH (09:06)
[2021-09-01] MEDS: ASCORBIC ACID 500 MG TAB PO SCH (09:07)
[2021-09-01] MEDS: FINASTERIDE 5 MG TAB PO SCH (09:07)
[2021-09-01] MEDS: LOSARTAN 25 MG TAB PO SCH (09:07)
[2021-09-01] MEDS: FAMOTIDINE 20 MG TAB PO SCH ×2 (09:07→20:23)
[2021-09-01] MEDS: MECLIZINE 25 MG TAB PO SCH ×3 (09:07→20:23)
[2021-09-01] MEDS: TAMSULOSIN 0.4 MG CAP.ER.24H PO SCH (09:07)
[2021-09-01] MEDS: METOPROLOL TARTRATE 50 MG TAB PO SCH ×2 (09:07→20:23)
[2021-09-01] MEDS: ZINC SULFATE 220 MG CAP PO SCH (09:07)
[2021-09-01] MEDS: DEXAMETHASONE SOD PHOSPHATE 10 MG/ML 1 ML VIAL IVP SCH (09:08)
[2021-09-01] MEDS: LORATADINE 10 MG TAB PO SCH (09:08)
[2021-09-01] MEDS: CHOLECALCIFEROL 25 MCG (1000 IU) TABLET PO SCH (09:08)
[2021-09-01] MEDS: guaiFENesin 600 MG TABLET.ER PO PRN ×2 (09:32→17:38)
[2021-09-01] MEDS: DULoxetine HCL 30 MG CAPSULE.DR PO SCH (09:32)
--- NOTE | 2021-09-01 14:19 | P.PN ---
Subjective Progress Note Date: 09/01/21 Principal diagnosis: Covid pneumonia. COVID-19 pneumonia 76-year-old male, who presents to the emergency department, on August 30. The patient has a history of atrial fibrillation, hyperlipidemia, hypertension, and COPD, and that she was home O2, at 2 L as needed. The patient presents to the emergency department with complaints of increasing shortness of breath, and cough, for the past 5 days. He apparently saw his doctor, 5 days ago and was given an antibiotic and steroid, but did not respond. Over the last 2 days, the patient states that his breathing has worsened. In addition, the patient has had some fevers and chills. There are no complaints of abdominal pain, nausea, vomiting, or diarrhea, or any genitourinary complaints. The patient did test positive for coronavirus on August 30. The patient did receive this vaccination against coronavirus. The patient is actually been sick for about 10 days or so. Currently labs data includes a white count of 12.2, hemoglobin hematocrit and platelet count all of which were normal. PT, INR, PTT, and d- dimer were all normal. Sodium was 125, potassium 4.5, chloride 93, CO2 23, anion gap 9, BUN 23, and creatinine 0.92. LDH was 687. C-reactive protein 20.1. The patient's chest x-ray was not really impressive, and did not show the typical infiltrates of coronavirus pneumonia. Currently, he's on 5 L nasal cannula, and also saline at 75 mL an hour. The patient is seen today 08/31/2021 in follow-up on the regular medical floor. He is awake and alert in no acute distress. He is currently maintaining O2 saturations in the mid 90s on 5 L high flow nasal cannula. He's been afebrile. Hemodynamically stable. Sodium 129. Potassium 4.2. Creatinine 1.0. Glucose 121. AST 56. ALT 31. Calcitonin 0.10. He remains on 0.9 normal saline at 75 ML's per hour. Continued on Decadron, Lovenox, vitamin supplements. Continued on Symbicort and albuterol. He does have home O2 that he wears mainly at night at 2 L/m per nasal cannula. Progress note dated 09/01/2021. The patient is again seen in room 482. The patient's currently on 15 L high flow oxygen, and saline at 75 mL an hour. The patient feels like he's feeling about the same today as he did yesterday. He states that he is no better, but he certainly no worse. His primary issues include primarily shortness of breath on exertion, and cough. Cough is mostly nonproductive, and can sometimes be harsh and painful. D-dimer today is 0.47. Sodium 125, potassium 4.2, chlorides 95, CO2 23, anion gap 7, BUN 20, creatinine 0.78. Chest x-ray shows bilateral patchy infiltrates, which are stable, or slightly worse. Objective - Vital Signs Vital signs: Vital Signs Temp 98 F 09/01/21 09:28 Pulse 105 H 09/01/21 09:28 Resp 17 09/01/21 09:28 BP 162/81 09/01/21 09:28 Pulse Ox 86 L 09/01/21 09:28 Intake & Output 08/31/21 09/01/21 09/01/21 18:59 06:59 18:59 Intake Total 1308 Balance 1308 Intake: Intake, IV Titration 600 Amount Sodium Chloride 0.9% 1, 600 000 ml @ 75 mls/hr IV . [id number] [facility] Rx#:[id number] Oral 708 Other: # Voids 4 # Bowel Movements 1 - Exam Alert, oriented 3, currently on 15 L high flow nasal O2. No conversational dyspnea, or use of accessory muscles. HEENT examination is grossly unremarkable. Neck supple. Full range of motion. No adenopathy thyromegaly or neck vein distention. Cardiovascular examination reveals regular rhythm rate. S1-S2 normal. No S3 or S4. No discernible murmur noted. Heart sounds are distant. Heart rate 102 bpm. Lungs reveal coarse bilateral rhonchi. No wheezes or crackles. Breath sounds equal. 15 L saturation is 89-93%. Abdomen soft bowel sounds are heard. No masses or tenderness. Extremities are intact. No cyanosis clubbing or edema. Skin is without rash or lesion. Neurologic examination is brief but nonfocal. - Labs CBC & Chem 7: 08/30/21 06:36 09/01/21 06:52 Labs: Abnormal Lab Results - Last 24 Hours (Table) 09/01/21 Range/Units 06:52 Sodium 125 L (137-145) mmol/L Chloride 95 L (98-107) mmol/L Calcium 8.1 L (8.4-10.2) mg/dL Assessment and Plan Assessment: Acute hypoxemic respiratory failure, secondary to coronavirus associated pneumonia. Chest x-rays unimpressive, but computed tomography scan would likely show diffuse bilateral groundglass opacities. History of atrial fibrillation. History of hyperlipidemia. History of hypertension. History of COPD. History of BPH. History of Mnire's disease. History of obstructive sleep apnea syndrome. Valvular heart disease. Status post left thoracotomy for closure of diaphragmatic hernia. Plan: Plan dated 08/30/2021. Currently, the patient is on vitamin C, vitamin D3, and zinc. In addition, the patient's getting Decadron, and Lovenox at usual doses. The patient is beyond the window for REM. The patient is not sick enough for Baricitinib. The rest of his medications appear appropriate including his updrafts. I will add a Symbicort inhaler. Additional recommendations and suggestions are forthcoming. Although his d-dimer is not elevated, a CT angiogram or a plain CT will likely show diffuse groundglass opacities consistent with coronavirus associated pneumonia. Plan dated 09/01/2021. Currently, the patient is on albuterol inhaler, Symbicort, Decadron, Lovenox, and vitamin C, vitamin D3, and zinc. The patient should be considered for ERICA given his rapid progression and oxygen requirements. The patient states that clinically, he is no better or no worse and he was yesterday. His primary complaint is shortness of breath on exertion, and a dry harsh painful cough. We will continue to follow make recommendations where appropriate. Prognosis is guarded. Time with Patient: Less than 30
--- NOTE | 2021-09-01 14:26 | P.PN ---
Subjective Progress Note Date: 09/01/21 76-year-old pleasant male with known history of COPD with suicidal dysfunction at home given with complaints of shortness of breath cough without any sputum production going on for about one and half week. Patient did did get vaccinated for Covid and found to have Covid 19 pneumonia chest x-ray did not show any significant infiltrate. Patient denied any chest pain abdominal pain, diarrhea or nausea or vomiting. Patient is on Augmentin not sure why he is taking Augmentin as an outpatient. Patient is presently on 5 L of oxygen saturating at 95% and patient was having fevers with temperature of 100.6. Patient is also hyponatremic and is on hydrochlorothiazide at home. Patient was started on Dec adron. D-dimer is within normal limits 08/31/2021 Patient is seen and evaluated in follow-up with no acute overnight issues. Patient normally wears 2 L of oxygen as needed at night in the outpatient setting and currently continues on 5 L. Discussed with nursing staff about weaning FiO2 as tolerated. Pulmonary and infectious disease following an patient is maintained on bronchodilators along with vitamin and zinc supplements and has been started on IV dexamethasone and Lovenox subcutaneous injections. Patient continues on gentle IV hydration at 75 ML per hour and will continue for now. Patient was hyponatremic at 125 and today's sodium level is 129. 09/01/2021 Patient is seen in follow-up this morning and overnight developed progressing worsening shortness of breath and currently on 15 L high flow nasal cannula. Nursing staff patient continues to remove oxygen and dropping down into the 70s and 80s oxygen saturation. Patient continues with a cough and rhonchi noted throughout on exam. Sodium level has dropped back down to 125 and will consult nephrology. Patient is extremely hard of hearing. Chest x-ray today shows interstitial and patchy left-sided infiltrates that are mildly progressed. Pulmonary and infectious disease following as well. Labs: Sodium is 125, potassium is 4.2, creatinine is 0.78, d-dimer is 0.47 Review of systems: Constitutional: No reports of fatigue, fever, or chills Cardiovascular: No reports of chest pain or palpitations Respiratory: reports of worsening shortness of breath, patient continues to report cough GI: No reports of nausea, vomiting, or diarrhea : No reports of dysuria or retention Neurovascular: No reports of weakness or numbness All medications have been reviewed Active Medications Acetaminophen (Acetaminophen Tab 325 Mg Tab) 650 mg PO Q6HR PRN PRN Reason: Mild Pain or Fever > 100.5 Albuterol Sulfate (Albuterol Hfa Inhaler) 2 puff INHALATION RT-QID PRN PRN Reason: Shortness Of Breath Or Wheezing Albuterol Sulfate (Albuterol Hfa Inhaler) 2 puff INHALATION RT-QID [facility] Last Admin: 09/01/21 11:18 Dose: 2 puff Documented by: Albuterol/Ipratropium (Ipratropium-Albuterol 3 Ml Neb) 3 ml INHALATION RT-QID PRN PRN Reason: Shortness Of Breath Or Wheezing Ascorbic Acid (Ascorbic Acid 500 Mg Tab) 500 mg PO DAILY [facility] Last Admin: 09/01/21 09:07 Dose: 500 mg Documented by: Budesonide/Formoterol Fumarate (Symbicort 160-4.5 Mcg Inhaler) 2 puff INHALATION RT-BID [facility] Last Admin: 09/01/21 07:56 Dose: 2 puff Documented by: Cholecalciferol (Cholecalciferol 25 Mcg (1000 Iu) Tablet) 100 mcg PO DAILY [facility] Last Admin: 09/01/21 09:08 Dose: 100 mcg Documented by: Dexamethasone Sodium Phosphate (Dexamethasone Sod Phosphate 10 Mg/Ml 1 Ml Vial) 6 mg IVP DAILY [facility] Last Admin: 09/01/21 09:08 Dose: 6 mg Documented by: Duloxetine HCl (Duloxetine Hcl 30 Mg Capsule.Dr) 30 mg PO DAILY [facility] Last Admin: 09/01/21 09:32 Dose: 30 mg Documented by: Enoxaparin Sodium (Enoxaparin 40 Mg/0.4 Ml Syringe) 40 mg SQ DAILY [facility] Last Admin: 09/01/21 09:06 Dose: 40 mg Documented by: Famotidine (Famotidine 20 Mg Tab) 20 mg PO BID [facility] Last Admin: 09/01/21 09:07 Dose: 20 mg Documented by: Finasteride (Finasteride 5 Mg Tab) 5 mg PO DAILY [facility] Last Admin: 09/01/21 09:07 Dose: 5 mg Documented by: Guaifenesin (Guaifenesin 600 Mg Tablet.Er) 1,200 mg PO BID PRN PRN Reason: Cold Symptoms Last Admin: 09/01/21 09:32 Dose: 1,200 mg Documented by: Sodium Chloride (Saline 0.9%) 1,000 mls @ 75 mls/hr IV .[id number] [facility] Last Admin: 09/01/21 09:32 Dose: 75 mls/hr Documented by: Loratadine (Loratadine 10 Mg Tab) 10 mg PO DAILY [facility] Last Admin: 09/01/21 09:08 Dose: 10 mg Documented by: Losartan Potassium (Losartan 25 Mg Tab) 25 mg PO DAILY [facility] Last Admin: 09/01/21 09:07 Dose: 25 mg Documented by: Meclizine HCl (Meclizine 25 Mg Tab) 25 mg PO TID [facility] Last Admin: 09/01/21 09:07 Dose: 25 mg Documented by: Metoprolol Tartrate (Metoprolol Tartrate 50 Mg Tab) 50 mg PO BID [facility] Last Admin: 09/01/21 09:07 Dose: 50 mg Documented by: Naloxone HCl (Naloxone 0.4 Mg/Ml 1 Ml Vial) 0.2 mg IV Q2M PRN PRN Reason: Opioid Reversal Pravastatin Sodium (Pravastatin Sodium 20 Mg Tab) 10 mg PO HS [facility] Last Admin: 08/31/21 20:03 Dose: 10 mg Documented by: Tamsulosin HCl (Tamsulosin 0.4 Mg Cap.Er.24h) 0.8 mg PO DAILY [facility] Last Admin: 09/01/21 09:07 Dose: 0.8 mg Documented by: Zinc Sulfate (Zinc Sulfate 220 Mg Cap) 220 mg PO DAILY [facility] Last Admin: 09/01/21 09:07 Dose: 220 mg Documented by: PHYSICAL EXAMINATION: GENERAL: The patient is alert and oriented x3, not in any acute distress. Well developed, well nourished. Extremely Hard of hearing HEENT: Pupils are round and equally reacting to light. EOMI. No scleral icterus. No conjunctival pallor. Normocephalic, atraumatic. No pharyngeal erythema. No thyromegaly. CARDIOVASCULAR: S1 and S2 present. No murmurs, rubs, or gallops. PULMONARY: Diminished breath sounds with scattered coarse rhonchi noted bilaterally, no wheezing or crackles noted ABDOMEN: Soft, nontender, nondistended, normoactive bowel sounds. No palpable organomegaly. MUSCULOSKELETAL: No joint swelling or deformity. EXTREMITIES: No cyanosis, clubbing, or pedal edema. NEUROLOGICAL: Gross neurological examination did not reveal any focal deficits. SKIN: No rashes. Assessment and plan: -Covid 19 pneumonia: Continued on Decadron, vitamin C, D, and zinc supplements along with Lovenox and will continue. Pulmonary and infectious disease following -Hypoxic respiratory failure secondary to above: Now requiring 15 L nonr ebreather with worsening respiratory status -Hyponatremia, Sodium is 125 and will consult nephrology and appreciate input and recommendations -History of atrial fibrillation: Proximal A. fib presently sinus tach secondary to hypoxemia, continued on Lovenox -Chronic hypercapnic respiratory failure secondary to COPD with mild acute exacerbation -Hypertension -Hyperlipidemia -Benign prostatic hypertrophy -DVT prophylaxis: Lovenox -GI prophylaxis -Full code Plan: Recommend to continue with current medications and management. Infectious disease and pulmonary following. Throughout the night patient's respiratory status worsened and became more hypoxic and continues to remove his oxygen and dips quickly down into the 70s and 80s. Patient currently on 15 L high flow nasal cannula and will continue to monitor closely. Sodium levels dropped again at 125 and will discontinue IV fluid and consult nephrology. Encouraged increased activity as tolerated. X-ray shows progression of infiltrates on the left. Prognosis is guarded. Objective - Vital Signs Vital signs: Vital Signs Temp 98.3 F 09/01/21 05:51 Pulse 88 09/01/21 05:51 Resp 24 09/01/21 06:05 BP 142/76 09/01/21 05:51 Pulse Ox 89 L 09/01/21 06:03 Intake & Output 08/31/21 09/01/21 09/01/21 18:59 06:59 18:59 Intake Total 1308 Balance 1308 Intake: Intake, IV Titration 600 Amount Sodium Chloride 0.9% 1, 600 000 ml @ 75 mls/hr IV . [id number] [facility] Rx#:[id number] Oral 708 Other: # Voids 4 # Bowel Movements 1 - Labs CBC & Chem 7: 08/30/21 06:36 09/01/21 06:52 Labs: Abnormal Lab Results - Last 24 Hours (Table) 08/31/21 09/01/21 Range/Units 07:48 06:52 Sodium 129 L 125 L (135-145) mmol/L Chloride 93 L 95 L (96-109) mmol/L Anion Gap 12.80 H (4.00-12.00) mmol/L BUN/Creatinine Ratio 21.70 H (12.00-20.00) Ratio Glucose 121 H (70-110) mg/dL Calcium 8.1 L (8.4-10.2) mg/dL AST 56 H (14-35) U/L Albumin/Globulin Ratio 1.55 L (1.60-3.17) g/dL
[2021-09-01] MEDS: BARICITINIB 2 MG TABLET PO SCH (17:36)
[2021-09-01] MEDS: ACETAMINOPHEN TAB 325 MG TAB PO PRN (17:38)
[2021-09-01] MEDS: PRAVASTATIN SODIUM 20 MG TAB PO SCH (20:23)
--- NOTE | 2021-09-01 22:40 | PN ---
PROGRESS NOTE DATE OF SERVICE: 09/01/2021 REASON FOR FOLLOWUP: COVID-19 pneumonia. INTERVAL HISTORY: The patient is afebrile. He was noticed to have worsening of his respiratory status, requiring high-flow oxygen. Patient denies having any chest pain, though. He did have a cough, not bringing up any sputum. No abdominal pain and no diarrhea. PHYSICAL EXAMINATION: Blood pressure 126/75, pulse of 103, temperature 97.6. He is 98% on 15 L high-flow oxygen. General description is an elderly male up in the bed in no distress. RESPIRATORY SYSTEM: Unlabored breathing. Coarse breath sounds bilaterally. Occasional wheeze. HEART: S1, S2. Regular rate and rhythm. ABDOMEN: Soft. No tenderness. LABS: BUN of 20, creatinine 0.78. DIAGNOSTIC IMPRESSION AND PLAN: Patient with acute COVID-19 pneumonia with worsening of his respiratory status. He has been started on baricitinib; to continue along with dexamethasone, Lovenox, zinc and ascorbic acid and respiratory support. Monitor his clinical course closely. MMODL / IJN: [id number] /
[2021-09-02] MEDS: SYMBICORT 160-4.5 MCG INHALER INHALATION SCH ×2 (07:45→19:14)
[2021-09-02] MEDS: ALBUTEROL HFA INHALER INHALATION SCH ×4 (07:54→19:13)
[2021-09-02] MEDS: CHOLECALCIFEROL 25 MCG (1000 IU) TABLET PO SCH (08:27)
[2021-09-02] MEDS: ENOXAPARIN 40 MG/0.4 ML SYRINGE SQ SCH (08:27)
[2021-09-02] MEDS: guaiFENesin 600 MG TABLET.ER PO PRN (08:27)
[2021-09-02] MEDS: TAMSULOSIN 0.4 MG CAP.ER.24H PO SCH (08:27)
[2021-09-02] MEDS: DULoxetine HCL 30 MG CAPSULE.DR PO SCH (08:28)
[2021-09-02] MEDS: MECLIZINE 25 MG TAB PO SCH ×3 (08:28→20:37)
[2021-09-02] MEDS: FINASTERIDE 5 MG TAB PO SCH (08:28)
[2021-09-02] MEDS: FAMOTIDINE 20 MG TAB PO SCH ×2 (08:28→21:37)
[2021-09-02] MEDS: ASCORBIC ACID 500 MG TAB PO SCH (08:28)
[2021-09-02] MEDS: LOSARTAN 25 MG TAB PO SCH (08:28)
[2021-09-02] MEDS: LORATADINE 10 MG TAB PO SCH (08:28)
[2021-09-02] MEDS: METOPROLOL TARTRATE 50 MG TAB PO SCH ×2 (08:28→21:37)
[2021-09-02] MEDS: ZINC SULFATE 220 MG CAP PO SCH (08:28)
[2021-09-02 08:54] LABS: Basophils % (A) 0 %; Eosinophils % (A) 0 %; HCT 46.8 % (39.0-53.0); HGB 15.9 gm/dL (13.0-17.5); Lymphocytes # (A) 0.3 k/uL (1.0-4.8); Lymphocytes % (A) 2 %; MCH 31.4 pg (25.0-35.0); MCV 92.2 fL (80.0-100.0); Mean Platelet Volume 6.9; Monocytes # (A) 0.5 k/uL (0-1.0); Monocytes % (A) 4 %; Neutrophils # (A) 12.4 k/uL (1.3-7.7); Neutrophils % (A) 93 %; Platelet Count 284 k/uL (150-450); RBC 5.07 m/uL (4.30-5.90); RDW 13.3 % (11.5-15.5); WBC 13.3 k/uL (3.8-10.6)
[2021-09-02 09:10] LABS: African American GFR (CKD) >90 (>60 ml/min/1.73 sqM); Anion Gap 11 mmol/L; Blood Urea Nitrogen 21 mg/dL (9-20); Calcium 8.7 mg/dL (8.4-10.2); Carbon Dioxide 22 mmol/L (22-30); Chloride 95 mmol/L (98-107); Glucose 158 mg/dL (74-99); Non-African American GFR(CKD) >90 (>60 ml/min/1.73 sqM); Potassium 4.3 mmol/L (3.5-5.1); Sodium 128 mmol/L (137-145)
[2021-09-02 11:42] LABS: C Reactive Protein 18.9 mg/dL (0.00-0.80)
[2021-09-02] MEDS: DEXAMETHASONE SOD PHOSPHATE 10 MG/ML 1 ML VIAL IVP SCH (12:10)
[2021-09-02] MEDS: BENZONATATE 100 MG CAP PO PRN ×2 (12:14→15:19)
[2021-09-02] MEDS ORDERED: FUROSEMIDE 10 MG/ML 4 ML VIAL IV STA (12:18)
--- NOTE | 2021-09-02 13:17 | CONS ---
CONSULTATION REASON FOR CONSULT: Hyponatremia. HISTORY OF PRESENT ILLNESS: The patient is a 76-year-old male who was admitted to the hospital on 08/30/2021 with complaints of shortness of breath. He has underlying COPD. The patient tested positive for Covid 19 PCR and has been treated for Covid pneumonia. He denies any previous history of hyponatremia. Patient's serum sodium was 125, when he first came in. It increased to 129 and then dropped again to 125. He is currently not on any IV fluids. The patient had been on normal saline which was discontinued yesterday. Serum sodium improved after saline was discontinued. The patient denies any history of congestive heart failure. Review of labs shows previous sodium 139-135 mEq/L. Blood pressure has not been low. Patient is not maintained on any thiazide diuretics prior to admission. Currently patient is maintained on high-flow nasal cannula. He is saturating 85%. PAST MEDICAL HISTORY: Significant for hypertension atrial fibrillation, COPD, hearing disorder hyperlipidemia BPH, hiatal hernia, obstructive sleep apnea, pleural effusions, cyst removed from right thumb. PAST SURGICAL HISTORY: Removal of cyst from right thumb, right foot implant greater toe, left thoracotomy, closure of diaphragmatic hernia with patch, repair of costochondral dislocation with subsequent lung herniation, multiple colonoscopies, cataract surgery both eyes. SOCIAL HISTORY: Patient is a former smoker. No history of drug abuse or alcohol abuse. MEDICATIONS: Medications prior to admission included Antivert, Flomax, Cozaar, and Melody inhalers, metoprolol, Lozol, Cymbalta, Proscar, Pravachol, Mucinex, prednisone. ALLERGIES: None. REVIEW OF SYSTEMS: As per HPI. Other systems negative. EXAMINATION: Comfortable, awake, not in any acute distress. Alert, oriented x3. Blood pressure 163/91, heart rate 114 per minute. Examination of lower extremities shows edema 1+ bilaterally. MOLECULAR BIOLOGIST exam is grossly intact. Heart and lungs are not examined. LABS: Sodium 128, potassium 4.3, chloride 95, BUN 21, creatinine 0.7, hemoglobin 15.9. ASSESSMENT: 1. Hyponatremia. Patient appears hypervolemic. I agree with discontinuation of IV fluids. I will give one dose of Lasix and repeat sodium later on this evening. The patient is advised to limit his free water intake and increase oral protein intake. 2. Coronavirus pneumonia requiring high flow oxygen, maintained on steroids. 3. Hypertension partly volume sensitive. Continue with Cozaar. PLAN: Lasix 40 mg IV x1. Repeat sodium this evening. Check urine osmolality and maintain some degree of fluid restriction. Thank you for this consultation. Will continue to follow the patient with you during his hospitalization. EDUIN / LORY: [id number] /
--- NOTE | 2021-09-02 13:46 | P.PN ---
Subjective Progress Note Date: 09/02/21 76-year-old pleasant male with known history of COPD with suicidal dysfunction at home given with complaints of shortness of breath cough without any sputum production going on for about one and half week. Patient did did get vaccinated for Covid and found to have Covid 19 pneumonia chest x-ray did not show any significant infiltrate. Patient denied any chest pain abdominal pain, diarrhea or nausea or vomiting. Patient is on Augmentin not sure why he is taking Augmentin as an outpatient. Patient is presently on 5 L of oxygen saturating at 95% and patient was having fevers with temperature of 100.6. Patient is also hyponatremic and is on hydrochlorothiazide at home. Patient was started on Dec adron. D-dimer is within normal limits 08/31/2021 Patient is seen and evaluated in follow-up with no acute overnight issues. Patient normally wears 2 L of oxygen as needed at night in the outpatient setting and currently continues on 5 L. Discussed with nursing staff about weaning FiO2 as tolerated. Pulmonary and infectious disease following an patient is maintained on bronchodilators along with vitamin and zinc supplements and has been started on IV dexamethasone and Lovenox subcutaneous injections. Patient continues on gentle IV hydration at 75 ML per hour and will continue for now. Patient was hyponatremic at 125 and today's sodium level is 129. 09/01/2021 Patient is seen in follow-up this morning and overnight developed progressing worsening shortness of breath and currently on 15 L high flow nasal cannula. Nursing staff patient continues to remove oxygen and dropping down into the 70s and 80s oxygen saturation. Patient continues with a cough and rhonchi noted throughout on exam. Sodium level has dropped back down to 125 and will consult nephrology. Patient is extremely hard of hearing. Chest x-ray today shows interstitial and patchy left-sided infiltrates that are mildly progressed. Pulmonary and infectious disease following as well. 09/02/2021 Patient is seen in follow-up this morning with worsening respirations and difficulty in breathing and maintained on 15 L high flow along with nonrebreather and working to breathe with continued cough. Pulmonary and infectious disease following closely and patient started on Baricitinib and maintained on vitamin and zinc supplements along with Lovenox and IV dexamethasone and will continue. Patient being transitioned to Airvo with respiratory following closely as well. Discussed CODE STATUS with the patient and he wishes to remain full code. Nephrology also consulted for hyponatremia and IV fluids have been discontinued and patient is receiving a dose of IV Lasix today. Labs: White blood count is 13.3, hemoglobin is 15.9, platelets are 284, sodium is 128, potassium is 4.3, creatinine is 0.70 Review of systems: Constitutional: No reports of fatigue, fever, or chills Cardiovascular: No reports of chest pain or palpitations Respiratory: reports of worsening shortness of breath, labored respirations, patient continues to report cough GI: No reports of nausea, vomiting, or diarrhea : No reports of dysuria or retention Neurovascular: No reports of weakness or numbness All medications have been reviewed Active Medications Acetaminophen (Acetaminophen Tab 325 Mg Tab) 650 mg PO Q6HR PRN PRN Reason: Mild Pain or Fever > 100.5 Last Admin: 09/01/21 17:38 Dose: 650 mg Documented by: Albuterol Sulfate (Albuterol Hfa Inhaler) 2 puff INHALATION RT-QID PRN PRN Reason: Shortness Of Breath Or Wheezing Albuterol Sulfate (Albuterol Hfa Inhaler) 2 puff INHALATION RT-QID [facility] Last Admin: 09/02/21 11:22 Dose: 2 puff Documented by: Albuterol/Ipratropium (Ipratropium-Albuterol 3 Ml Neb) 3 ml INHALATION RT-QID PRN PRN Reason: Shortness Of Breath Or Wheezing Ascorbic Acid (Ascorbic Acid 500 Mg Tab) 500 mg PO DAILY [facility] Last Admin: 09/02/21 08:28 Dose: 500 mg Documented by: Baricitinib (Baricitinib 2 Mg Tablet) 4 mg PO DAILY@1500 [facility] Stop: 09/14/21 15:01 Last Admin: 09/01/21 17:36 Dose: 4 mg Documented by: Benzonatate (Benzonatate 100 Mg Cap) 100 mg PO TID PRN PRN Reason: Cough Last Admin: 09/02/21 12:14 Dose: 100 mg Documented by: Budesonide/Formoterol Fumarate (Symbicort 160-4.5 Mcg Inhaler) 2 puff INHALATION RT-BID [facility] Last Admin: 09/02/21 07:45 Dose: 2 puff Documented by: Cholecalciferol (Cholecalciferol 25 Mcg (1000 Iu) Tablet) 100 mcg PO DAILY [facility] Last Admin: 09/02/21 08:27 Dose: 100 mcg Documented by: Dexamethasone Sodium Phosphate (Dexamethasone Sod Phosphate 10 Mg/Ml 1 Ml Vial) 6 mg IVP DAILY [facility] Last Admin: 09/02/21 12:10 Dose: 6 mg Documented by: Duloxetine HCl (Duloxetine Hcl 30 Mg Capsule.Dr) 30 mg PO DAILY [facility] Last Admin: 09/02/21 08:28 Dose: 30 mg Documented by: Enoxaparin Sodium (Enoxaparin 40 Mg/0.4 Ml Syringe) 40 mg SQ DAILY [facility] Last Admin: 09/02/21 08:27 Dose: 40 mg Documented by: Famotidine (Famotidine 20 Mg Tab) 20 mg PO BID [facility] Last Admin: 09/02/21 08:28 Dose: 20 mg Documented by: Finasteride (Finasteride 5 Mg Tab) 5 mg PO DAILY [facility] Last Admin: 09/02/21 08:28 Dose: 5 mg Documented by: Guaifenesin (Guaifenesin 600 Mg Tablet.Er) 1,200 mg PO BID PRN PRN Reason: Cold Symptoms Last Admin: 09/02/21 08:27 Dose: 1,200 mg Documented by: Loratadine (Loratadine 10 Mg Tab) 10 mg PO DAILY [facility] Last Admin: 09/02/21 08:28 Dose: 10 mg Documented by: Losartan Potassium (Losartan 25 Mg Tab) 25 mg PO DAILY [facility] Last Admin: 09/02/21 08:28 Dose: 25 mg Documented by: Meclizine HCl (Meclizine 25 Mg Tab) 25 mg PO TID [facility] Last Admin: 09/02/21 08:28 Dose: 25 mg Documented by: Metoprolol Tartrate (Metoprolol Tartrate 50 Mg Tab) 50 mg PO BID [facility] Last Admin: 09/02/21 08:28 Dose: 50 mg Documented by: Naloxone HCl (Naloxone 0.4 Mg/Ml 1 Ml Vial) 0.2 mg IV Q2M PRN PRN Reason: Opioid Reversal Pravastatin Sodium (Pravastatin Sodium 20 Mg Tab) 10 mg PO HS [facility] Last Admin: 09/01/21 20:23 Dose: 10 mg Documented by: Tamsulosin HCl (Tamsulosin 0.4 Mg Cap.Er.24h) 0.8 mg PO DAILY [facility] Last Admin: 09/02/21 08:27 Dose: 0.8 mg Documented by: Zinc Sulfate (Zinc Sulfate 220 Mg Cap) 220 mg PO DAILY [facility] Last Admin: 09/02/21 08:28 Dose: 220 mg Documented by: PHYSICAL EXAMINATION: GENERAL: The patient is alert and oriented x3, in acute respiratory distress on 15 L high flow along with nonrebreather and being transitioned to Airvo. Well developed, well nourished. Extremely Hard of hearing HEENT: Pupils are round and equally reacting to light. EOMI. No scleral icterus. No conjunctival pallor. Normocephalic, atraumatic. No pharyngeal erythema. No thyromegaly. CARDIOVASCULAR: S1 and S2 present. No murmurs, rubs, or gallops. PULMONARY: Diminished breath sounds with scattered coarse rhonchi noted bilaterally, no wheezing or crackles noted ABDOMEN: Soft, nontender, nondistended, normoactive bowel sounds. No palpable organomegaly. MUSCULOSKELETAL: No joint swelling or deformity. EXTREMITIES: No cyanosis, clubbing, or pedal edema. NEUROLOGICAL: Gross neurological examination did not reveal any focal deficits. SKIN: No rashes. Assessment and plan: -Covid 19 pneumonia: Continued on Decadron, vitamin C, D, and zinc supplements along with Lovenox and will continue. Patient started on Baricitinib. Pulmonary and infectious disease following -Hypoxic respiratory failure secondary to above: Was on 15 L nonrebreather along with high flow 15 L NC with worsening respiratory status being transitioned to Airvo -Hyponatremia, Sodium is 128 today after fluid restrictions and discontinuing IV fluids. Nephrology consulted -History of atrial fibrillation: Proximal A. fib presently sinus tach secondary to hypoxemia, continued on Lovenox -Chronic hypercapnic respiratory failure secondary to COPD with mild acute exacerbation -Hypertension -Hyperlipidemia -Benign prostatic hypertrophy -DVT prophylaxis: Lovenox -GI prophylaxis -Full code Plan: Recommend to continue with current medications and management. Infectious disease and pulmonary following. Nephrology consulted for hyponatremia and have discontinued IV fluids and continue with fluid restrictions of free water. Sodium slightly improved at 128 today and will be given a dose of IV Lasix. patient's respiratory status continues to worsen and continues to be more hypo xic and continues on 15 L high flow nasal cannula along with nonrebreather and being transitioned to Airvo. Encouraged increased activity as tolerated. Discussed CODE STATUS with the patient and he wishes to remain full code. Prognosis is guarded. Objective - Vital Signs Vital signs: Vital Signs Temp 97.6 F 09/02/21 06:00 Pulse 91 09/02/21 06:00 Resp 28 H 09/02/21 06:00 BP 147/85 09/02/21 06:00 Pulse Ox 91 L 09/02/21 06:00 Intake & Output 09/01/21 09/02/21 09/02/21 18:59 06:59 18:59 Intake Total 600 Balance 600 Intake: Oral 600 Other: # Voids 4 2 # Bowel Movements 2 - Labs CBC & Chem 7: 09/02/21 08:19 09/02/21 08:19
[2021-09-02] MEDS ORDERED: ALPRAZolam 0.25 MG TAB PO PRN (14:37)
--- NOTE | 2021-09-02 15:06 | P.PN ---
Subjective Progress Note Date: 09/02/21 Principal diagnosis: COVID-19 pneumonia 76-year-old male, who presents to the emergency department, on August 30. The patient has a history of atrial fibrillation, hyperlipidemia, hypertension, and COPD, and that she was home O2, at 2 L as needed. The patient presents to the emergency department with complaints of increasing shortness of breath, and cough, for the past 5 days. He apparently saw his doctor, 5 days ago and was given an antibiotic and steroid, but did not respond. Over the last 2 days, the patient states that his breathing has worsened. In addition, the patient has had some fevers and chills. There are no complaints of abdominal pain, nausea, vomiting, or diarrhea, or any genitourinary complaints. The patient did test positive for coronavirus on August 30. The patient did receive this vaccination against coronavirus. The patient is actually been sick for about 10 days or so. Currently labs data includes a white count of 12.2, hemoglobin he matocrit and platelet count all of which were normal. PT, INR, PTT, and d-dimer were all normal. Sodium was 125, potassium 4.5, chloride 93, CO2 23, anion gap 9, BUN 23, and creatinine 0.92. LDH was 687. C-reactive protein 20.1. The patient's chest x-ray was not really impressive, and did not show the typical infiltrates of coronavirus pneumonia. Currently, he's on 5 L nasal cannula, and also saline at 75 mL an hour. The patient is seen today 08/31/2021 in follow-up on the regular medical floor. He is awake and alert in no acute distress. He is currently maintaining O2 saturations in the mid 90s on 5 L high flow nasal cannula. He's been afebrile. Hemodynamically stable. Sodium 129. Potassium 4.2. Creatinine 1.0. Glucose 121. AST 56. ALT 31. Calcitonin 0.10. He remains on 0.9 normal saline at 75 ML's per hour. Continued on Decadron, Lovenox, vitamin supplements. Continued on Symbicort and albuterol. He does have home O2 that he wears mainly at night at 2 L/m per nasal cannula. Progress note dated 09/01/2021. The patient is again seen in room 482. The patient's currently on 15 L high flow oxygen, and saline at 75 mL an hour. The patient feels like he's feeling about the same today as he did yesterday. He states that he is no better, but he certainly no worse. His primary issues include primarily shortness of breath on exertion, and cough. Cough is mostly nonproductive, and can sometimes be harsh and painful. D-dimer today is 0.47. Sodium 125, potassium 4.2, chlorides 95, CO2 23, anion gap 7, BUN 20, creatinine 0.78. Chest x-ray shows bilateral patchy infiltrates, which are stable, or slightly worse. The patient is seen today 09/02/2021 in follow-up on the regular medical floor. He is currently resting comfortably in bed. He had been up in the chair most of the morning. His oxygen requirements have worsened. He was 85% on 15 L. He h as since been transitioned to AirVo high flow oxygen at 60 L and 90% FiO2 and is more comfortable. O2 saturations in the low 90s. He's been afebrile. White count 13.3. Hemoglobin 15.9. Lymphocytes 0.3. Sodium 128. Potassium 4.3. Creatinine 0.7. Glucose 158. He is continued on Baricitinib, Decadron, Lovenox, vitamin supplements. He remains on Symbicort and albuterol. He was given Lasix 40 mg IVP 1 today per nephrology. Objective - Vital Signs Vital signs: Vital Signs Temp 97.9 F 09/02/21 08:43 Pulse 114 H 09/02/21 08:43 Resp 18 09/02/21 08:43 BP 163/91 09/02/21 08:43 Pulse Ox 85 L 09/02/21 08:43 Intake & Output 09/01/21 09/02/21 09/02/21 18:59 06:59 18:59 Intake Total 600 Balance 600 Intake: Oral 600 Other: # Voids 4 2 # Bowel Movements 2 - Exam Alert, pleasant 76-year-old gentleman. Mild respiratory distress, oriented 3. Now on AirVo high flow oxygen at 6 L 90% FiO2. HEENT examination is grossly unremarkable. Neck supple. Full range of motion. No adenopathy thyromegaly or neck vein distention. Cardiovascular examination reveals regular rhythm rate. S1-S2 normal. No S3 or S4. No discernible murmur noted. Heart sounds are distant. Lungs reveal coarse bilateral rhonchi, crackles in the posterior bases Abdomen soft bowel sounds are heard. No masses or tenderness. Extremities are intact. No cyanosis clubbing or edema. Skin is without rash or lesion. Neurologic examination is brief but nonfocal. - Labs CBC & Chem 7: 09/02/21 08:19 09/02/21 08:19 Labs: Abnormal Lab Results - Last 24 Hours (Table) 09/01/21 09/02/21 09/02/21 Range/Units 07:40 08:19 08:19 WBC 13.3 H (3.8-10.6) k/uL Neutrophils # 12.4 H (1.3-7.7) k/uL Lymphocytes # 0.3 L (1.0-4.8) k/uL Sodium 128 L (137-145) mmol/L Chloride 95 L (98-107) mmol/L BUN 21 H (9-20) mg/dL Glucose 158 H (74-99) mg/dL Lactate Dehydrogenase 410 H (120-246) U/L C-Reactive Protein 18.90 H (0.00-0.80) mg/dL Assessment and Plan Assessment: 1 Acute hypoxemic respiratory failure, secondary to coronavirus associated pneumonia. He is vaccinated with the Moderna vaccine. Currently on AirVo high flow oxygen at 60 L and 90% FiO2 2 History of atrial fibrillation. 3 History of hyperlipidemia. 4 History of hypertension. 5 History of COPD. Does have home oxygen at 2 L/m. He wears mainly at night 6 History of BPH. 7 History of Mnire's disease. 8 History of obstructive sleep apnea syndrome. 9 Valvular heart disease. 10 Status post left thoracotomy for closure of diaphragmatic hernia. Plan: The patient was seen and evaluated by Dr. William He is currently tolerating the AirVo high flow oxygen Receiving Xanax for anxiety Titrate the FiO2 as tolerated Continue Lovenox, Decadron, vitamin supplement Continue Symbicort, albuterol Follow-up chest x-ray, inflammatory markers in the a.m. Condition remains guarded We will continue to follow Rachael, the cosigning physician, performed a history & physical examination of the patient. Lungs sounds coarse rhonchi bilaterally. Maintaining good O2 saturations in the 90s on 60 L and 90% FiO2 via the AirVo high flow oxygen by Rachael llamas the assessment and plan of care with my nurse practitioner, Lindsay Snell. I attest to the above note as dictated by her.
[2021-09-02] MEDS: BARICITINIB 2 MG TABLET PO SCH (15:35)
[2021-09-02 17:39] LABS: Glucose,Whole Blood 148 mg/dL (75-99)
[2021-09-02] MEDS ORDERED: DILTIAZEM 5 MG/ML 5 ML VIAL IV STA (17:48)
--- NOTE | 2021-09-02 18:14 | PN ---
PROGRESS NOTE DATE OF SERVICE: 09/02/2021 REASON FOR FOLLOWUP: COVID-19 pneumonia. INTERVAL HISTORY: The patient is afebrile. The patient is breathing slightly comfortably today. The patient denies having any chest pain. Did have a cough, not bringing up any sputum. No nausea, no vomiting. No abdominal pain, no diarrhea. PHYSICAL EXAMINATION: Blood pressure is 134/74, pulse of 102, temperature 97.6. He is 90% on 94% FiO2. General description is an elderly male up in the bed in no distress. Respiratory system: Unlabored breathing, decreased intensity of breath sounds. No wheeze. Heart S1, S2. Regular rate and rhythm. Abdomen soft, no tenderness. LABS: hemoglobin is 15.1, white count 13.3, creatinine 0.70. DIAGNOSTIC IMPRESSION AND PLAN: Patient with acute COVID-19 pneumonia. Minimal clinical improvement. Patient to continue the baricitinib, dexamethasone, Lovenox, zinc and ascorbic acid along with respiratory support and continue supportive care. MMODL / IJN: [id number] /
[2021-09-02] MEDS ORDERED: DILTIAZEM 125 MG in SODIUM CHLORIDE 0.9% 100 ML IV SCH ×4 (18:15)
[2021-09-02] MEDS ORDERED: LORazepam 2 MG/ML INJ IV STA (18:23)
[2021-09-02 18:29] LABS: ABG Base Excess -1.3 mmol/L; ABG HCO3 23 mmol/L (21-25); ABG Oxygen Saturation 84.2 % (94-97); ABG PCO2 32 mmHg (35-45); ABG PH 7.46 (7.35-7.45); ABG TCO2 23 mmol/L (19-24); Allen Test Performed? Yes
[2021-09-02] MEDS ORDERED: propofoL 100 ML IV ONE (18:36)
[2021-09-02 18:50] LABS: ABG PO2 47 mmHg (83-108)
[2021-09-02] MEDS ORDERED: NOREPINEPHRIN 4 MG-0.9% NS PMX 4 MG/250 ML ML IV ONE (19:03)
[2021-09-02] MEDS ORDERED: DEXTROSE 5% IN WATER 100 ML with AMIODARONE 150 MG IV ONE (19:13)
[2021-09-02] MEDS ORDERED: AMIODARONE 360 MG in DEXTROSE 5% IN WATER 200 ML IV ONE ×2 (19:13)
[2021-09-02 19:37] LABS: ABG Base Excess -4.9 mmol/L; ABG HCO3 22 mmol/L (21-25); ABG Oxygen Saturation 97.2 % (94-97); ABG PCO2 44 mmHg (35-45); ABG PO2 99 mmHg (83-108); ABG TCO2 23 mmol/L (19-24); Allen Test Performed? Yes
--- NOTE | 2021-09-02 19:57 | P.EN ---
A- team: Indication: A fib with RVR Arrived on Scene to find: Patient laying in bed appeared comfortable and a heart rate of 180 on the monitor. Patient seen and examined at bedside. At that point in time patient was asymptomatic and started her shortness of breath was the same and is always bad. He denied knowing that his heart was racing, chest pain, lightheadedness, or dizziness. He did admit to some anxiety. Course of the A-team: Unfortunately patient had lost IV access. Patient's heart rate continued to be elevated and his breathing worsened and he became more hypoxic (still was not complaining of shortness of breath). Several attempts were made and ultimately he was able to get a peripheral IV. He was given Cardizem 10 mg IV bolus which brought his heart rate down to the 150s. He was monitored for 5 minutes and his heart rate continued to be in the 150s. He received an additional 10 mg of Cardizem IV bolus. During this time patient became more dyspneic however his blood pressures were stable at 110/[address] William was contacted and the patient was subsequently transferred to the ICU. On arrival to the ICU his breathign worsened and patient became more anxious. ABG was obtained, ativan given, and plans were for BiPap. However as ABG was being run patinet started complaining of acute shortness of breath and ICT ANALYST was contacted for immediate intubation. His ABG that resulted showing a PaO2 of 49.4. After intubation his SPo2 was 45 adn PEEP immediatly increased to 15 with peak preasures at 30-38. He then continued to have high heart rate. Cardizem was adjusted, however he became hypotensive after needing propofol bolus for sedation. Orders were written for amiodarone and levophed. EKG was obtained a reapt will be ontained with adaquate HR control. CXR revieved with ET tube and OG tube in good placement. Daughter updated about critical condition and need for intubation all questions answered. Vital signs reviewed General: non toxic, no distress, appears at stated age Derm: warm, dry Head: atraumatic, normocephalic, symmetric Eyes: EOMI, no lid lag, anicteric sclera Mouth: no lip lesion, mucus membranes moist Cardiovascular: S1S2 irreg, no murmur, positive posterior tibial pulse bilateral, Lungs: + accessory muscle use, 3 word conversation dyspnea, course bs bilateral Abdominal: soft, nontender to palpation, no guarding, no appreciable organomegaly Ext: no gross muscle atrophy, no edema, no contractures Neuro: CN II-XI grossly intact, no focal neuro deficits Psych: Alert, oriented, appropriate affect Assessment: Acute on chronic hypoxic respiratory failure COVID-19 pneumonia A fib with RVR Severe COPD Hyponatremia Hypotension due to A fib Plan: see course above. Consult cardio, echo, troponin, Disposition: Transferred to the ICU, Intubated Notified: [facility] notified [facility] via perfect serve A Total of 105 minutes of critical care time was spent on the complex care of this patient.
[2021-09-02] MEDS: NOREPINEPHRINE 4 MG in SODIUM CHLORIDE 0.9% 250 ML IV SCH ×2 (20:02→21:38)
--- NOTE | 2021-09-02 20:30 | XR ---
EXAMINATION TYPE: XR chest 1V portable DATE OF EXAM: 09/02/2021 COMPARISON: 09/01/2021 HISTORY: 76 years Male. STUDY INDICATION GIVEN: tube placement . TECHNIQUE: Portable AP supine chest radiograph IMPRESSION: Interval intubation: Tip of endotracheal tube 3.8 cm above adeline. Enteric tube courses into the stom ach. Diffuse bilateral interstitial and airspace opacities are again demonstrated with slight improvement in the lung bases. No pneumothorax or pleural effusion appreciated. The heart is not enlarged.
[2021-09-02] MEDS ORDERED: MORPHINE SULFATE 4 MG/ML SYRINGE IVP PRN (20:54)
[2021-09-02] MEDS ORDERED: MORPHINE SULFATE 2 MG/ML SYRINGE IVP PRN (20:54)
[2021-09-02] MEDS ORDERED: TEMAZEPAM 7.5 MG CAP PO SCH (21:00)
[2021-09-02 21:05] LABS: Basophils % (A) 0 %; Eosinophils # (A) 0.1 k/uL (0-0.7); Eosinophils % (A) 1 %; HCT 46.6 % (39.0-53.0); HGB 14.7 gm/dL (13.0-17.5); Lymphocytes # (A) 0.3 k/uL (1.0-4.8); Lymphocytes % (A) 2 %; MCHC 31.5 g/dL (31.0-37.0); MCV 95.3 fL (80.0-100.0); Mean Platelet Volume 7.2; Monocytes # (A) 0.5 k/uL (0-1.0); Monocytes % (A) 3 %; Neutrophils # (A) 16.6 k/uL (1.3-7.7); Neutrophils % (A) 94 %; Platelet Count 254 k/uL (150-450); RBC 4.89 m/uL (4.30-5.90); RDW 12.7 % (11.5-15.5); WBC 17.7 k/uL (3.8-10.6)
[2021-09-02 21:19] LABS: African American GFR (CKD) >90 (>60 ml/min/1.73 sqM); Anion Gap 11 mmol/L; Blood Urea Nitrogen 26 mg/dL (9-20); Calcium 7.4 mg/dL (8.4-10.2); Carbon Dioxide 17 mmol/L (22-30); Chloride 99 mmol/L (98-107); Glucose 212 mg/dL (74-99); Magnesium 1.9 mg/dL (1.6-2.3); Non-African American GFR(CKD) 85 (>60 ml/min/1.73 sqM); Sodium 127 mmol/L (137-145)
[2021-09-02 21:24] LABS: Potassium 4.4 mmol/L (3.5-5.1)
[2021-09-02] MEDS: CHLORHEXIDINE GLUCONATE 15 ML CUP MUCOUS MEM SCH (21:37)
[2021-09-02] MEDS: PRAVASTATIN SODIUM 20 MG TAB PO SCH (21:48)
[2021-09-02] MEDS ORDERED: CISATRACURIUM 2 MG/ML 5 ML VIAL IV ONE (22:18)
[2021-09-02] MEDS: CISATRACURIUM 200 MG in SODIUM CHLORIDE 0.9% 180 ML IV SCH (22:26)
[2021-09-02] MEDS: SODIUM CHLORIDE 0.9% 1,000 ML IV SCH (22:32)
[2021-09-02 22:53] LABS: Appearance,Urine Clear (Clear); Bacteria,Urine Rare /hpf; Bilirubin,Urine Negative (Negative); Blood,Urine Small (Negative); Color,Urine Light Yellow; Glucose,Urine (UA) Negative (Negative); Hyaline Casts,Urine 7 /lpf (0-2); Ketones,Urine Negative (Negative); Leukocyte Esterase,Urine Negative (Negative); Mucus,Urine Rare /hpf; Nitrite,Urine Negative (Negative); PH, Urine 5.5 (5.0-8.0); Protein,Urine Trace (Negative); RBC,Urine 2 /hpf (0-5); Specific Gravity,Urine 1.009 (1.001-1.035); Squamous Epithelial Cell,Urine <1 /hpf (0-4); Urobilinogen,Urine <2.0 mg/dL (<2.0); WBC,Urine 1 /hpf (0-5)
[2021-09-02] MEDS ORDERED: HEPARIN SODIUM 1,000 UN/ML (10ML VL) IV PRN (23:06)
[2021-09-02] MEDS ORDERED: HEPARIN SOD,PORK IN 0.45% NACL 25,000 UNIT in 0.45% NACL 1 250ML.BAG IV SCH (23:15)
[2021-09-02 23:36] LABS: Partial Thromboplastin Time 25.8 sec (22.0-30.0); Prothrombin Time 10.8 sec (9.0-12.0)
[2021-09-02 23:38] LABS: Glucose,Whole Blood 202 mg/dL (75-99)
[2021-09-02] MEDS: INSULIN ASPART (NovoLOG) 100 UNIT/ML VIAL SQ SCH (23:41)
[2021-09-02] MEDS: ARTIFICIAL TEARS-HYPROMELLOSE DROPS 15 ML BTL BOTH EYES SCH (23:41)
[2021-09-03] MEDS: NOREPINEPHRINE 4 MG in SODIUM CHLORIDE 0.9% 250 ML IV SCH ×4 (00:29→08:16)
[2021-09-03] MEDS: AMIODARONE 450 MG in DEXTROSE 5% IN WATER 250 ML IV SCH ×4 (01:38→16:17)
[2021-09-03] MEDS: ARTIFICIAL TEARS-HYPROMELLOSE DROPS 15 ML BTL BOTH EYES SCH ×6 (03:51→23:23)
[2021-09-03 04:32] LABS: Basophils % (A) 0 %; Eosinophils # (A) 0.1 k/uL (0-0.7); Eosinophils % (A) 1 %; HGB 14.5 gm/dL (13.0-17.5); Lymphocytes # (A) 0.2 k/uL (1.0-4.8); Lymphocytes % (A) 1 %; MCHC 32.2 g/dL (31.0-37.0); MCV 96.2 fL (80.0-100.0); Mean Platelet Volume 7.1; Monocytes # (A) 0.5 k/uL (0-1.0); Monocytes % (A) 3 %; Neutrophils # (A) 16.7 k/uL (1.3-7.7); Neutrophils % (A) 94 %; Platelet Count 302 k/uL (150-450); RBC 4.67 m/uL (4.30-5.90); RDW 12.9 % (11.5-15.5); WBC 17.8 k/uL (3.8-10.6)
[2021-09-03 04:47] LABS: Prothrombin Time 10.6 sec (9.0-12.0)
[2021-09-03 05:18] LABS: Magnesium 2.1 mg/dL (1.6-2.3)
[2021-09-03 05:42] LABS: Calcium 7.4 mg/dL (8.4-10.2)
[2021-09-03 06:10] LABS: C Reactive Protein 20.1 mg/dL (<1.0)
[2021-09-03 06:13] LABS: Glucose,Whole Blood 176 mg/dL (75-99)
[2021-09-03] MEDS: INSULIN ASPART (NovoLOG) 100 UNIT/ML VIAL SQ SCH ×4 (06:15→23:32)
--- NOTE | 2021-09-03 06:31 | XR ---
EXAMINATION TYPE: XR chest 1V DATE OF EXAM: 09/03/2021 COMPARISON: 09/02/2021 HISTORY: Shortness of breath TECHNIQUE: Single frontal view of the chest is obtained. FINDINGS: As on the prior study there are diffuse airspace interstitial opacity right greater than l eft. There is no pneumothorax or large pleural effusion. Heart size is normal. The osseous structures are intact. There is an NG tube approximately 4.2 cm above the adeline. There is an NG tube coursing into the stom ach. IMPRESSION: Diffuse bilateral infiltrates unchanged compared to previous.
[2021-09-03 08:13] LABS: ABG Base Excess -7.1 mmol/L; ABG HCO3 20 mmol/L (21-25); ABG Oxygen Saturation 98.7 % (94-97); ABG PCO2 47 mmHg (35-45); ABG PH 7.24 (7.35-7.45); ABG PO2 121 mmHg (83-108); ABG TCO2 22 mmol/L (19-24)
[2021-09-03 08:15] LABS: Allen Test Performed? no
[2021-09-03] MEDS: SYMBICORT 160-4.5 MCG INHALER INHALATION SCH ×3 (08:16→19:11)
[2021-09-03] MEDS: ALBUTEROL HFA INHALER INHALATION SCH ×5 (08:16→19:11)
[2021-09-03] MEDS: DEXAMETHASONE SOD PHOSPHATE 10 MG/ML 1 ML VIAL IVP SCH (08:42)
[2021-09-03] MEDS: ASCORBIC ACID 500 MG TAB PO SCH (08:43)
[2021-09-03] MEDS: TAMSULOSIN 0.4 MG CAP.ER.24H PO SCH (08:43)
[2021-09-03] MEDS: METOPROLOL TARTRATE 50 MG TAB PO SCH (08:43)
[2021-09-03] MEDS: FAMOTIDINE 20 MG TAB PO SCH (08:43)
[2021-09-03] MEDS: ZINC SULFATE 220 MG CAP PO SCH (08:44)
[2021-09-03] MEDS: CHOLECALCIFEROL 25 MCG (1000 IU) TABLET PO SCH (08:44)
[2021-09-03] MEDS: LORATADINE 10 MG TAB PO SCH (08:44)
[2021-09-03] MEDS: CHLORHEXIDINE GLUCONATE 15 ML CUP MUCOUS MEM SCH ×2 (09:28→20:03)
[2021-09-03] MEDS: MECLIZINE 25 MG TAB PO SCH (09:28)
[2021-09-03] MEDS: LOSARTAN 25 MG TAB PO SCH (09:29)
[2021-09-03] MEDS: FINASTERIDE 5 MG TAB PO SCH (09:29)
--- NOTE | 2021-09-03 11:27 | PN ---
PROGRESS NOTE Patient is seen for followup for hyponatremia. Yesterday patient's respiratory status deteriorated. He was intubated and transferred to the ICU. Currently he is maintained on FiO2 of 100%. His blood pressure was low and patient was started on Levophed. Sodium has remained the same. He did receive a dose of Lasix yesterday. Currently, sodium is staying at about 127 mEq/L. The patient was also in atrial fibrillation and has been started on amiodarone drip. Urine output at about 25-30 mL an hour. On examination: Blood pressure 109/70, heart rate 150 per minute. He is afebrile. Case is discussed with nursing staff. Patient is not examined. He had 1+ edema as of yesterday. Patient remains on the vent. He is sedated. Tube feeds are being started. No active bleeding from anywhere. LAB: Show sodium 127, potassium 4.0, chloride 100, CO2 is 18, BUN 29, creatinine 1.06 hemoglobin 14.5 g/dL. ASSESSMENT: 1. Hyponatremia. The patient had been hypervolemic and therefore fluids were discontinued yesterday and received a dose of Lasix. Urine osmolality is 380, which is not significantly low. Recommend decreasing IV fluids and minimizing free water down the feeding tube. Blood pressure is low and patient is maintained on Levophed. However, he is getting a lot of fluids with all the other drips as well. 2. Covid pneumonia, currently on the vent. 3. Acute hypoxic respiratory failure secondary to COVID pneumonia, possible ARDS. 4. Metabolic acidosis. Check lactic acid levels if not done. Renal function appears to be stable with mild acute kidney injury noted with serum creatinine going up from 0.8 to 1.06 and urine output is currently borderline. PLAN: Decrease IV fluids. Decrease free water down the feeding tube. Add oral sodium bicarb. Avoid nephrotoxic agents. SHANNAN Bazan. Repeat labs in a.m. MMODL / IJN: [id number] /
--- NOTE | 2021-09-03 11:55 | P.PN ---
Subjective Progress Note Date: 09/03/21 Principal diagnosis: COVID-19 pneumonia 76-year-old male, who presents to the emergency department, on August 30. The patient has a history of atrial fibrillation, hyperlipidemia, hypertension, and COPD, and that she was home O2, at 2 L as needed. The patient presents to the emergency department with complaints of increasing shortness of breath, and cough, for the past 5 days. He apparently saw his doctor, 5 days ago and was given an antibiotic and steroid, but did not respond. Over the last 2 days, the patient states that his breathing has worsened. In addition, the patient has had some fevers and chills. There are no complaints of abdominal pain, nausea, vomiting, or diarrhea, or any genitourinary complaints. The patient did test positive for coronavirus on August 30. The patient did receive this vaccination against coronavirus. The patient is actually been sick for about 10 days or so. Currently labs data includes a white count of 12.2, hemoglobin he matocrit and platelet count all of which were normal. PT, INR, PTT, and d-dimer were all normal. Sodium was 125, potassium 4.5, chloride 93, CO2 23, anion gap 9, BUN 23, and creatinine 0.92. LDH was 687. C-reactive protein 20.1. The patient's chest x-ray was not really impressive, and did not show the typical infiltrates of coronavirus pneumonia. Currently, he's on 5 L nasal cannula, and also saline at 75 mL an hour. The patient is seen today 08/31/2021 in follow-up on the regular medical floor. He is awake and alert in no acute distress. He is currently maintaining O2 saturations in the mid 90s on 5 L high flow nasal cannula. He's been afebrile. Hemodynamically stable. Sodium 129. Potassium 4.2. Creatinine 1.0. Glucose 121. AST 56. ALT 31. Calcitonin 0.10. He remains on 0.9 normal saline at 75 ML's per hour. Continued on Decadron, Lovenox, vitamin supplements. Continued on Symbicort and albuterol. He does have home O2 that he wears mainly at night at 2 L/m per nasal cannula. Progress note dated 09/01/2021. The patient is again seen in room 482. The patient's currently on 15 L high flow oxygen, and saline at 75 mL an hour. The patient feels like he's feeling about the same today as he did yesterday. He states that he is no better, but he certainly no worse. His primary issues include primarily shortness of breath on exertion, and cough. Cough is mostly nonproductive, and can sometimes be harsh and painful. D-dimer today is 0.47. Sodium 125, potassium 4.2, chlorides 95, CO2 23, anion gap 7, BUN 20, creatinine 0.78. Chest x-ray shows bilateral patchy infiltrates, which are stable, or slightly worse. The patient is seen today 09/02/2021 in follow-up on the regular medical floor. He is currently resting comfortably in bed. He had been up in the chair most of the morning. His oxygen requirements have worsened. He was 85% on 15 L. He h as since been transitioned to AirVo high flow oxygen at 60 L and 90% FiO2 and is more comfortable. O2 saturations in the low 90s. He's been afebrile. White count 13.3. Hemoglobin 15.9. Lymphocytes 0.3. Sodium 128. Potassium 4.3. Creatinine 0.7. Glucose 158. He is continued on Baricitinib, Decadron, Lovenox, vitamin supplements. He remains on Symbicort and albuterol. He was given Lasix 40 mg IVP 1 today per nephrology. He is seen today 09/03/2021 in follow-up in the intensive care unit. Unfortunately last evening approximately 6 PM the patient's condition deteriorated and A team was called initially for atrial fibrillation with a rapid ventricular response and he was transferred to the intensive care unit where he subsequently developed worsening shortness of breath and failed AirVo and BiPAP and then required stat intubation and transferred to the intensive care unit where he was placed on mechanical ventilation. He is seen today in follow-up. Current ventilator settings are assist-control mode and a respiratory rate of 20, tidal volume 500, FiO2 100% and a PEEP of 15. Morning blood gases reveal a P O2 of 121, pCO2 47, pH 7.24. He remains on a heparin drip per weight-based protocol. He is requiring norepinephrine at 23 mcg/m. He is also on amiodarone drip at 0.5 mg/m. Sedated with propofol at 65 mcg/kg/m. He is also on Nimbex at 0.5 g/kg/m. He has 0.9 normal saline at 75 mL per hour. Heart rate is better controlled in the 80s. White count 17.8. Hemoglobin 14.5. Lymphocytes 0.2. Sodium 127. Potassium 4.0. Bicarb 18. Creatinine 1.06. LDH 1179. C-reactive protein 20.1. Troponin 0.24. He is continued on Aricept admitted, bronchodilators, Decadron, vitamin supplements. Objective - Vital Signs Vital signs: Vital Signs Temp 97.2 F L 09/03/21 08:00 Pulse 92 09/03/21 11:30 Resp 28 H 09/03/21 11:30 BP 103/81 09/03/21 11:30 Pulse Ox 98 09/03/21 11:30 Intake & Output 09/02/21 09/03/21 09/03/21 18:59 06:59 18:59 Intake Total 2035.042 819.877 Output Total 505 175 Balance 1530.042 644.877 Weight 103.1 kg 103.1 kg Intake: IV 675 300 Sodium Chloride 0.9% 1, 675 300 000 ml @ 75 mls/hr IV . [id number] [facility] Rx#:[id number] Intake, IV Titration 1360.042 519.877 Amount Cisatracurium 200 mg In 45.286 Sodium Chloride 0.9% 180 ml @ 2 MCG/KG/MIN 12.372 mls/hr IV .[id number] [facility] Rx #:[id number] Heparin Sod,Pork in 0.45% 54.667 NaCl 25,000 unit In 0.45 % NaCl 1 250ml.bag @ 8. 4793 UNITS/KG/HR 8.742 mls/hr IV .Q24H [facility] Rx#: [id number] Norepinephrine 4 mg In 853.108 448.366 Sodium Chloride 0.9% 250 ml @ 0.05 MCG/KG/MIN 19. 641 mls/hr IV .[id number] [facility] Rx#:[id number] propofoL 1,000 mg In 406.981 71.511 Empty Bag 1 bag @ Titrate IV .Q0M [facility] Rx#: [id number] Output: Urine 505 175 Other: Voiding Method Indwelling Catheter Indwelling Catheter ABP, PAP, CO, CI - Last Documented Arterial Blood Pressure 120/73 - Exam Intubated, sedated, paralyzed 76-year-old gentleman. On mechanical ventilator. FiO2 100%, PEEP of 15. HEENT examination is grossly unremarkable. Oral endotracheal and gastric tube secured in place. Neck supple. Full range of motion. No adenopathy thyromegaly or neck vein distention. Cardiovascular examination reveals irregular rhythm rate. S1-S2 normal. No S3 or S4. No discernible murmur noted. Heart sounds are distant. Lungs reveal coarse bilateral rhonchi, crackles in the posterior bases Abdomen soft bowel sounds are heard. No masses or tenderness. Extremities are intact. No cyanosis clubbing or edema. Skin is without rash or lesion. Neurologic examination not obtained due to sedation and paralytics - Labs CBC & Chem 7: 09/03/21 04:25 09/03/21 04:25 Labs: Abnormal Lab Results - Last 24 Hours (Table) 09/01/21 09/02/21 09/02/21 Range/Units 07:40 17:38 18:26 WBC (3.8-10.6) k/uL Neutrophils # (1.3-7.7) k/uL Lymphocytes # (1.0-4.8) k/uL APTT (22.0-30.0) sec D-Dimer (<0.60) mg/L FEU ABG pH 7.46 H (7.35-7.45) ABG pCO2 32 L (35-45) mmHg ABG pO2 47 L* (83-108) mmHg ABG HCO3 (21-25) mmol/L ABG O2 Saturation 84.2 L (94-97) % Sodium (137-145) mmol/L Carbon Dioxide (22-30) mmol/L BUN (9-20) mg/dL Glucose (74-99) mg/dL POC Glucose (mg/dL) 148 H (75-99) mg/dL Calcium (8.4-10.2) mg/dL Lactate Dehydrogenase 410 H (120-246) U/L Troponin I (0.000-0.034) ng/mL C-Reactive Protein 18.90 H (0.00-0.80) mg/dL Urine Protein (Negative) Urine Blood (Negative) Urine Bacteria (None) /hpf Hyaline Casts (0-2) /lpf Urine Mucus (None) /hpf 09/02/21 09/02/21 09/02/21 Range/Units 19:00 19:32 20:41 WBC (3.8-10.6) k/uL Neutrophils # (1.3-7.7) k/uL Lymphocytes # (1.0-4.8) k/uL APTT (22.0-30.0) sec D-Dimer (<0.60) mg/L FEU ABG pH 7.30 L (7.35-7.45) ABG pCO2 (35-45) mmHg ABG pO2 (83-108) mmHg ABG HCO3 (21-25) mmol/L ABG O2 Saturation 97.2 H (94-97) % Sodium 127 L (137-145) mmol/L Carbon Dioxide 17 L (22-30) mmol/L BUN 26 H (9-20) mg/dL Glucose 212 H (74-99) mg/dL POC Glucose (mg/dL) (75-99) mg/dL Calcium 7.4 L (8.4-10.2) mg/dL Lactate Dehydrogenase (120-246) U/L Troponin I (0.000-0.034) ng/mL C-Reactive Protein (0.00-0.80) mg/dL Urine Protein Trace H (Negative) Urine Blood Small H (Negative) Urine Bacteria Rare H (None) /hpf Hyaline Casts 7 H (0-2) /lpf Urine Mucus Rare H (None) /hpf 09/02/21 09/02/21 09/02/21 Range/Units 20:41 20:41 20:41 WBC 17.7 H (3.8-10.6) k/uL Neutrophils # 16.6 H (1.3-7.7) k/uL Lymphocytes # 0.3 L (1.0-4.8) k/uL APTT (22.0-30.0) sec D-Dimer 0.67 H (<0.60) mg/L FEU ABG pH (7.35-7.45) ABG pCO2 (35-45) mmHg ABG pO2 (83-108) mmHg ABG HCO3 (21-25) mmol/L ABG O2 Saturation (94-97) % Sodium (137-145) mmol/L Carbon Dioxide (22-30) mmol/L BUN (9-20) mg/dL Glucose (74-99) mg/dL POC Glucose (mg/dL) (75-99) mg/dL Calcium (8.4-10.2) mg/dL Lactate Dehydrogenase (120-246) U/L Troponin I 0.241 H* (0.000-0.034) ng/mL C-Reactive Protein (0.00-0.80) mg/dL Urine Protein (Negative) Urine Blood (Negative) Urine Bacteria (None) /hpf Hyaline Casts (0-2) /lpf Urine Mucus (None) /hpf 09/02/21 09/03/21 09/03/21 Range/Units 23:37 04:25 04:25 WBC 17.8 H (3.8-10.6) k/uL Neutrophils # 16.7 H (1.3-7.7) k/uL Lymphocytes # 0.2 L (1.0-4.8) k/uL APTT (22.0-30.0) sec D-Dimer (<0.60) mg/L FEU ABG pH (7.35-7.45) ABG pCO2 (35-45) mmHg ABG pO2 (83-108) mmHg ABG HCO3 (21-25) mmol/L ABG O2 Saturation (94-97) % Sodium 127 L (137-145) mmol/L Carbon Dioxide 18 L (22-30) mmol/L BUN 29 H (9-20) mg/dL Glucose 196 H (74-99) mg/dL POC Glucose (mg/dL) 202 H (75-99) mg/dL Calcium 7.4 L (8.4-10.2) mg/dL Lactate Dehydrogenase 1179 H (120-246) U/L Troponin I (0.000-0.034) ng/mL C-Reactive Protein 20.1 H (0.00-0.80) mg/dL Urine Protein (Negative) Urine Blood (Negative) Urine Bacteria (None) /hpf Hyaline Casts (0-2) /lpf Urine Mucus (None) /hpf 09/03/21 09/03/21 09/03/21 Range/Units 04:25 06:12 08:12 WBC (3.8-10.6) k/uL Neutrophils # (1.3-7.7) k/uL Lymphocytes # (1.0-4.8) k/uL APTT 31.8 H (22.0-30.0) sec D-Dimer (<0.60) mg/L FEU ABG pH 7.24 L (7.35-7.45) ABG pCO2 47 H (35-45) mmHg ABG pO2 121 H (83-108) mmHg ABG HCO3 20 L (21-25) mmol/L ABG O2 Saturation 98.7 H (94-97) % Sodium (137-145) mmol/L Carbon Dioxide (22-30) mmol/L BUN (9-20) mg/dL Glucose (74-99) mg/dL POC Glucose (mg/dL) 176 H (75-99) mg/dL Calcium (8.4-10.2) mg/dL Lactate Dehydrogenase (120-246) U/L Troponin I (0.000-0.034) ng/mL C-Reactive Protein (0.00-0.80) mg/dL Urine Protein (Negative) Urine Blood (Negative) Urine Bacteria (None) /hpf Hyaline Casts (0-2) /lpf Urine Mucus (None) /hpf Assessment and Plan Assessment: 1 Acute hypoxemic respiratory failure, secondary to coronavirus associated pneumonia. He is vaccinated with the Moderna vaccine. The patient's condition deteriorated on 09/02/2021 in the evening and required intubation mechanical ventilatory support. 2 History of atrial fibrillation. 3 History of hyperlipidemia. 4 History of hypertension. 5 History of COPD. Does have home oxygen at 2 L/m. He wears mainly at night 6 History of BPH. 7 History of Mnire's disease. 8 History of obstructive sleep apnea syndrome. 9 Valvular heart disease. 10 Status post left thoracotomy for closure of diaphragmatic hernia. Plan: The patient was seen and evaluated by Dr. William Chest x-ray, ABGs and labs reviewed Wean the FiO2 as tolerated Discontinue Baricitinib Continue Lovenox, Decadron, vitamin supplement Continue Symbicort, albuterol Left IJ catheter placed, arterial line in place Follow-up chest x-ray, arterial blood gases and inflammatory markers in the a.m. Condition remains guarded We will continue to follow Critical care time 38 minutes, not including procedures I, the cosigning physician, performed a history & physical examination of the patient. Lungs sounds coarse rhonchi bilaterally, crackles in the posterior bases. Maintaining good O2 saturations in the 90s on on 100% FiO2 and a PEEP of 15 on mechanical ventilator. I discussed the assessment and plan of care with my nurse practitioner, Lindsay Snell. I attest to the above note as dictated by her.
--- NOTE | 2021-09-03 12:01 | XR ---
EXAMINATION TYPE: XR chest 1V portable DATE OF EXAM: 09/03/2021 COMPARISON: 09/03/2021 HISTORY: Line placement TECHNIQUE: Single frontal view of the chest is obtained. FINDINGS: There is been no change in the diffuse fluffy alveolar infiltrates and interstitial infilt rates bilaterally. ET tube 6 cm above the adeline. NG tube stomach. There is a left jugular central venous catheter the tip of which is in the SVC/R junction. There is n o pneumothorax. IMPRESSION: 1. Left jugular central venous catheter tip in the SVC/R junction with no pneumothorax. 2. No change in the diffuse lung infiltrates.
--- NOTE | 2021-09-03 12:21 | PCN ---
PROCEDURE NOTE PULMONARY/CRITICAL CARE PROCEDURE NOTE: PROCEDURE PERFORMED: Left internal jugular triple-lumen catheter. PREOP DIAGNOSIS: Administration of fluids and pressors. POSTOP DIAGNOSIS: Administration of fluids and pressors. PURCHASE ANALYST: Dr. William, Dr. Snell, Dr. Heaton. TRIPLE LUMEN CATHETER PLACEMENT: Indication: Hemodynamic monitoring/Intravenous access. A time-out was completed verifying correct patient, procedure, site, positioning, and implant(s) or special equipment if applicable. The patient was placed in a dependent position appropriate for triple lumen catheter placement based on the vein to be cannulated. The patient's left neck was prepped and draped in sterile fashion. 1% Lidocaine was used to anesthetize the surrounding skin area. A triple lumen 9F Cordis catheter was introduced into the internal jugular vein using Seldinger technique. The catheter was threaded smoothly over the guide wire and appropriate blood return was obtained. Each lumen of the catheter was evacuated of air and flushed with sterile saline. The catheter was then sutured in place to the skin and a sterile dressing applied. Perfusion to the extremity distal to the point of catheter insertion was checked and found to be adequate. We used the left internal jugular site. There was no immediate complications. There was good blood return from all 3 ports. The patient tolerated the procedure well. A chest x-ray was used to check placement of the triple-lumen catheter. The catheter was sutured in place and sterile dressings applied by the nurse. There was no immediate complication. The patient tolerated the procedure well. MMODL / IJN: [id number] /
[2021-09-03] MEDS: NOREPINEPHRINE 32 MG in SODIUM CHLORIDE 0.9% 218 ML IV SCH (13:00)
[2021-09-03] MEDS: DULoxetine HCL 30 MG CAPSULE.DR PO SCH (13:01)
[2021-09-03 13:06] LABS: Glucose,Whole Blood 169 mg/dL (75-99)
[2021-09-03] MEDS: PANTOPRAZOLE 40 MG/10 ML VIAL IVP SCH (13:09)
[2021-09-03] MEDS: SODIUM CHLORIDE 0.9% 1,000 ML IV SCH ×2 (13:11→23:33)
[2021-09-03] MEDS: SODIUM BICARBONATE TAB 650 MG TAB PO SCH ×2 (13:17→20:03)
[2021-09-03] MEDS: APIXABAN 5 MG TAB PO SCH ×2 (14:01→20:03)
[2021-09-03] MEDS: AMIODARONE 200 MG TAB PO SCH ×2 (14:02→20:03)
--- NOTE | 2021-09-03 15:21 | P.CRDCN ---
History of Present Illness History of present illness: HISTORY OF PRESENTING ILLNESS Patient is a pleasant 76-year-old male with history of paroxysmal atrial fibrillation and hyperlipidemia hypertension and COPD and new onset COVID-19 who presents secondary to shortness breath and cough or the prior 5 days. Patient was found have COVID-19 pneumonia and was subsequently intubated and sedated. Patient has been receiving supportive care and ICU however 1 into atrial fibrillation with RVR yesterday. He was placed on amiodarone drip and his home metoprolol was also added. He has been maintained on a low dose of norepinephrine. He has subsequently converted to normal sinus rhythm. REVIEW OF SYSTEMS At the time of my exam: CONSTITUTIONAL: Denies fever or chills. CARDIOVASCULAR: Denies chest pain, shortness of breath, orthopnea, PND or palpitations. RESPIRATORY: Denies cough. GASTROINTESTINAL: Denies abdominal pain, diarrhea, constipation, nausea or vomiting. MUSCULOSKELETAL: Denies myalgias. NEUROLOGIC: Denies numbness, tingling or weakness. ENDOCRINE: Denies fatigue, weight change, polydipsia or polyurina. GENITOURINARY: Denies burning, hematuria or urgency with micturation. HEMATOLOGIC: Denies history of anemia or bleeding. PHYSICAL EXAMINATION Vital signs reviewed. Patient not examined secondary to COVID-19 pneumonia. Appeared sedated and comfortable on ventilator. ASSESSMENT 1. Paroxysmal atrial fibrillation, currently back in normal sinus rhythm 2. Acute on chronic respiratory failure 3. COPD 4. COVID-19 pneumonia 5. Hypertension 6. Hyperlipidemia 7. Septic shock PLAN Given patient is been somewhat symptomatic with A. fib we will attempt rhythm control with amiodarone 400 mg twice a day. Otherwise continue supportive care for his COVID-19 pneumonia. [facility] Please call with any questions. Past Medical History Past Medical History: Atrial Fibrillation, COPD, Hearing Disorder / Deafness, Hyperlipidemia, Hypertension, Prostate Disorder, Respiratory Disorder Additional Past Medical History / Comment(s): Home oxygen pt uses prn, chronic steroid use, paroxysmal Afib, menieres disease, hiatal hernia, BENEDICT-uses oxygen [place], moderate mitral regurg, mild tricuspid regurg, L pleural effusion/loculated and had pigtail drains, past fluid collection along pleura abdominal wall musculature, BPH, L ear deafness, [place] R ear with aide. History of Any Multi-Drug Resistant Organisms: None Reported Past Surgical History: Hernia Repair, Tonsillectomy Additional Past Surgical History / Comment(s): cyst removed R thumb, right foot implant great toe, left thoracotomy closure of diaphragmatic hernia with patch, repair of costochondral dislocation with subsequent lung herniation November 22 2017, colonoscopies. cataracts both eyes Past Anesthesia/Blood Transfusion Reactions: No Reported Reaction Past Psychological History: No Psychological Hx Reported Additional Psychological History / Comment(s): . Pt has oxygen and nebulizer at home. He uses a cane prn. Retired from the [employer]. experience with the [employer], no international travel. No animal exposures Smoking Status: Former smoker Past Alcohol Use History: None Reported Additional Past Alcohol Use History / Comment(s): Pt started smoking in 1963 and quit in 2012. Past Drug Use History: None Reported - Past Family History Mother Family Medical History: Dementia Additional Family Medical History / Comment(s): breast cancer Father Family Medical History: No Reported History Medications and Allergies Home Medications Medication Instructions Recorded Confirmed Type Meclizine [Antivert] 25 mg PO TID 11/18/17 08/30/21 History Tamsulosin HCl [Flomax] 0.8 mg PO DAILY 11/18/17 08/30/21 History Losartan Potassium [Cozaar] 25 mg PO DAILY 04/11/18 08/30/21 History Fexofenadine HCl [Melody Allergy] 180 mg PO DAILY 12/13/18 08/30/21 History Fluticasone/Umeclidin/Vilanter 1 puff INHALATION RT-DAILY 03/21/19 08/30/21 History [Trelegy Ellipta 100-62.5-25] Indapamide [Lozol] 1.25 mg PO DAILY 03/21/19 08/30/21 History Metoprolol Tartrate [Lopressor] 37.5 mg PO BID 03/21/19 08/30/21 History Albuterol Sulfate [Ventolin HFA] 2 puff INHALATION RT-Q6H PRN 08/30/21 08/30/21 History Amoxic-Pot Clav 875-125Mg 1 tab PO Q12HR 08/30/21 08/30/21 History [Augmentin 875-125] DULoxetine HCL [Cymbalta] 30 mg PO DAILY 08/30/21 08/30/21 History Finasteride [Proscar] 5 mg PO DAILY 08/30/21 08/30/21 History Pravastatin Sodium [Pravachol] 10 mg PO HS 08/30/21 08/30/21 History guaiFENesin [Mucinex] 1,200 mg PO BID PRN 08/30/21 08/30/21 History predniSONE 10 mg PO DIRECTED 08/30/21 08/30/21 History predniSONE See Taper PO DAILY 08/30/21 08/30/21 History Allergies Allergy/AdvReac Type Severity Reaction Status Date / Time No Known Allergies Allergy Verified 08/30/21 07:30 Physical Exam Vitals: Vital Signs Temp Pulse Resp BP Pulse Ox 09/03/21 14:00 91 28 H 112/85 97 09/03/21 13:30 96 28 H 111/82 98 09/03/21 13:00 85 28 H 112/90 98 09/03/21 12:30 90 28 H 111/86 98 09/03/21 12:00 97.5 F L 84 28 H 124/90 95 09/03/21 11:30 92 28 H 103/81 98 09/03/21 11:15 81 28 H 105/84 98 09/03/21 11:00 85 28 H 101/70 97 09/03/21 10:45 80 28 H 139/106 97 09/03/21 10:30 96 28 H 83/63 95 09/03/21 10:15 81 28 H 91/70 95 09/03/21 10:00 96 28 H 76/20 96 09/03/21 09:45 101 H 28 H 103/69 96 09/03/21 09:30 107 H 28 H 117/79 96 09/03/21 09:15 137 H 28 H 112/76 96 09/03/21 09:00 124 H 27 H 115/76 96 09/03/21 08:45 116 H 28 H 121/79 97 09/03/21 08:30 141 H 28 H 108/73 96 09/03/21 08:15 131 H 28 H 108/70 97 09/03/21 08:00 97.2 F L 124 H 18 113/84 96 09/03/21 07:45 133 H 28 H 100/82 96 09/03/21 07:30 133 H 28 H 108/83 96 09/03/21 07:15 134 H 28 H 102/80 96 09/03/21 07:00 152 H 28 H 109/70 96 09/03/21 06:45 124 H 28 H 106/78 96 09/03/21 06:30 134 H 22 103/77 96 09/03/21 06:15 133 H 19 101/77 96 09/03/21 06:00 142 H 28 H 110/76 96 09/03/21 05:45 135 H 19 78/63 95 09/03/21 05:30 133 H 28 H 83/59 96 09/03/21 05:15 144 H 28 H 86/63 96 09/03/21 05:00 133 H 28 H 79/66 96 09/03/21 04:45 141 H 28 H 101/71 96 09/03/21 04:30 133 H 28 H 97/73 95 09/03/21 04:15 141 H 28 H 89/66 95 09/03/21 04:00 98.3 F 135 H 28 H 94/79 96 09/03/21 03:45 140 H 28 H 96/63 96 09/03/21 03:30 144 H 28 H 92/73 96 09/03/21 03:15 146 H 28 H 83/69 96 09/03/21 03:00 118 H 28 H 89/65 95 09/03/21 02:45 125 H 28 H 78/61 96 09/03/21 02:30 141 H 28 H 92/65 95 09/03/21 02:15 138 H 28 H 78/63 95 09/03/21 02:00 140 H 28 H 94/64 95 09/03/21 01:45 137 H 28 H 93/71 95 09/03/21 01:30 133 H 28 H 80/63 95 09/03/21 01:15 134 H 22 86/61 94 L 09/03/21 01:00 156 H 28 H 101/55 95 09/03/21 00:45 133 H 28 H 85/62 95 09/03/21 00:30 113 H 28 H 87/62 95 09/03/21 00:15 144 H 28 H 80/63 95 09/03/21 00:10 130 H 28 H 80/63 95 09/03/21 00:00 98.2 F 128 H 28 H 80/65 95 09/02/21 23:45 138 H 28 H 81/60 95 09/02/21 23:30 117 H 28 H 102/63 95 09/02/21 23:15 149 H 28 H 82/66 96 09/02/21 23:00 144 H 28 H 102/68 95 09/02/21 22:45 146 H 28 H 108/71 96 09/02/21 22:30 115 H 19 87/71 97 09/02/21 22:15 135 H 19 95/67 96 09/02/21 22:00 131 H 20 96/77 96 09/02/21 21:45 124 H 20 104/66 97 09/02/21 21:30 146 H 21 82/70 96 09/02/21 21:15 98.4 F 144 H 20 93/67 97 09/02/21 21:00 133 H 25 H 85/71 97 09/02/21 20:45 156 H 30 H 118/73 95 09/02/21 20:30 151 H 26 H 91/81 99 09/02/21 20:15 144 H 27 H 100/75 97 09/02/21 20:00 149 H 26 H 76/56 97 09/02/21 19:45 142 H 28 H 83/72 96 09/02/21 19:30 134 H 31 H 88/68 95 09/02/21 19:15 144 H 24 63/46 91 L 09/02/21 19:00 134 H 27 H 207/127 82 L 09/02/21 18:45 176 H 207/127 09/02/21 18:30 151 H 36 H 140/124 63 L 09/02/21 18:19 174 H 39 H 80 L Intake and Output 09/03/21 09/03/21 09/03/21 06:59 14:59 22:59 Intake Total 7098.715 8915.256 225.282 Output Total 245 315 Balance 1460.281 911.256 225.282 Intake: IV 600 600 Sodium Chloride 0.9% 1, 600 600 000 ml @ 75 mls/hr IV . [id number] LEANDRO Rx#:[id number] Intake, IV Titration 1105.281 626.256 225.282 Amount Amiodarone 450 mg In 225.282 Dextrose 5% in Water 250 ml @ 0.5 MG/MIN 16.667 mls/hr IV .Q15H LEANDRO Rx#: [id number] Cisatracurium 200 mg In 45.286 Sodium Chloride 0.9% 180 ml @ 2 MCG/KG/MIN 12.372 mls/hr IV .[id number] LEANDRO Rx #:[id number] Heparin Sod,Pork in 0.45% 54.667 105.332 NaCl 25,000 unit In 0.45 % NaCl 1 250ml.bag @ 8. 4793 UNITS/KG/HR 8.742 mls/hr IV .Q24H LEANDRO Rx#: [id number] Norepinephrine 32 mg In 1.047 Sodium Chloride 0.9% 218 ml @ 0.05 MCG/KG/MIN 2. 416 mls/hr IV .Q24H [facility]ANDRO Rx#:[id number] Norepinephrine 4 mg In 709.322 448.366 Sodium Chloride 0.9% 250 ml @ 0.05 MCG/KG/MIN 19. 641 mls/hr IV .[id number] [facility]ANDRO Rx#:[id number] propofoL 1,000 mg In 296.006 71.511 Empty Bag 1 bag @ Titrate IV .Q0M LEANDRO Rx#: [id number] Output: Urine 245 315 Other: Voiding Method Indwelling Catheter Indwelling Catheter Weight 103.1 kg 103.1 kg ABP, PAP, CO, CI - Last 8 Hours Arterial Blood Pressure 116/70 Arterial Blood Pressure 108/65 Arterial Blood Pressure 126/77 Arterial Blood Pressure 117/70 Arterial Blood Pressure 115/71 Arterial Blood Pressure 120/73 Arterial Blood Pressure 106/72 Arterial Blood Pressure 98/64 Arterial Blood Pressure 99/64 Arterial Blood Pressure 84/57 Arterial Blood Pressure 77/57 Arterial Blood Pressure 101/62 Arterial Blood Pressure 115/68 Arterial Blood Pressure 116/64 Arterial Blood Pressure 109/63 Arterial Blood Pressure 102/63 Arterial Blood Pressure 105/65 Arterial Blood Pressure 100/62 Arterial Blood Pressure 101/63 Arterial Blood Pressure 105/63 Results 09/03/21 04:25 09/03/21 04:25 Cardiac Enzymes 09/02/21 09/03/21 Range/Units 20:41 04:25 Lactate Dehydrogenase 1179 H (313-618) U/L Troponin I 0.241 H* (0.000-0.034) ng/mL Coagulation 09/02/21 09/03/21 09/03/21 Range/Units 23:12 04:25 04:25 PT 10.8 10.6 (9.0-12.0) sec APTT 25.8 31.8 H (22.0-30.0) sec 09/03/21 Range/Units 11:00 PT (9.0-12.0) sec APTT >200.0 H* (22.0-30.0) sec CBC 09/02/21 09/03/21 Range/Units 20:41 04:25 WBC 17.7 H 17.8 H (3.8-10.6) k/uL RBC 4.89 4.67 (4.30-5.90) m/uL Hgb 14.7 14.5 (13.0-17.5) gm/dL Hct 46.6 45.0 (39.0-53.0) % Plt Count 254 302 (150-450) k/uL Comprehensive Metabolic Panel 09/02/21 09/03/21 Range/Units 20:41 04:25 Sodium 127 L 127 L (137-145) mmol/L Potassium 4.4 4.0 (3.5-5.1) mmol/L Chloride 99 100 (98-107) mmol/L Carbon Dioxide 17 L 18 L (22-30) mmol/L BUN 26 H 29 H (9-20) mg/dL Creatinine 0.83 1.06 (0.66-1.25) mg/dL Glucose 212 H 196 H (74-99) mg/dL Calcium 7.4 L 7.4 L (8.4-10.2) mg/dL Current Medications Generic Name Dose Route Start Last Admin Trade Name Otonielq PRN Reason Stop Dose Admin Acetaminophen 650 mg 08/30/21 07:56 09/01/21 17:38 Acetaminophen Tab 325 Mg Tab PO 650 mg Q6HR PRN Administration Mild Pain or Fever > 100.5 Albuterol Sulfate 2 puff 08/30/21 08:54 Albuterol Hfa Inhaler INHALATION RT-QID PRN Shortness Of Breath Or Wheezing Albuterol Sulfate 2 puff 08/30/21 12:00 09/03/21 12:18 Albuterol Hfa Inhaler INHALATION 2 puff RT-QID LEANDRO Administration Albuterol/Ipratropium 3 ml 08/30/21 09:48 Ipratropium-Albuterol 3 Ml Neb INHALATION RT-QID PRN Shortness Of Breath Or Wheezing Amiodarone HCl 400 mg 09/03/21 14:00 09/03/21 14:02 Amiodarone 200 Mg Tab PO 400 mg BID LEANDRO Administration Apixaban 5 mg 09/03/21 14:00 09/03/21 14:01 Apixaban 5 Mg Tab PO 5 mg BID LEANDRO Administration Protocol Artificial Tears 2 drops 09/03/21 00:00 09/03/21 13:11 Artificial Tears-Hypromellose Drops 15 Ml Btl BOTH EYES 2 drops Q4HR LEANDRO Administration Ascorbic Acid 500 mg 08/30/21 09:00 09/03/21 08:43 Ascorbic Acid 500 Mg Tab PO 500 mg DAILY LEANDRO Administration Budesonide/Formoterol Fumarate 2 puff 08/30/21 20:00 09/03/21 08:18 Symbicort 160-4.5 Mcg Inhaler INHALATION Not Given RT-BID LEANDRO Chlorhexidine Gluconate 15 ml 09/02/21 21:00 09/03/21 09:28 Chlorhexidine Gluconate 15 Ml Cup MUCOUS MEM 15 ml BID LEANDRO Administration Cholecalciferol 100 mcg 08/30/21 09:00 09/03/21 08:44 Cholecalciferol 25 Mcg (1000 Iu) Tablet PO 100 mcg DAILY LEANDRO Administration Dexamethasone Sodium Phosphate 6 mg 08/31/21 09:00 09/03/21 08:42 Dexamethasone Sod Phosphate 10 Mg/Ml 1 Ml Vial IVP 6 mg DAILY LEANDRO Administration Duloxetine HCl 30 mg 08/30/21 09:00 09/03/21 13:01 Duloxetine Hcl 30 Mg Capsule.Dr PO Not Given DAILY LEANDRO Diltiazem HCl 125 mg/ Sodium 125 mls @ 0 mls/hr 09/02/21 18:15 Chloride IV .Q0M LEANDRO Protocol Per Protocol Amiodarone HCl 450 mg/ 250 mls @ 16.667 mls/hr 09/03/21 01:12 09/03/21 15:09 Dextrose/Water IV 09/03/21 19:11 0 mg/min .Q15H LEANDRO 0 mls/hr Titration Protocol 0.5 MG/MIN Propofol 1,000 mg/ IV Solution 100 mls @ 0 mls/hr 09/02/21 19:45 09/03/21 07:17 IV 68 mcg/kg/min .Q0M LEANDRO 42.065 mls/hr Administration Protocol Titrate Cisatracurium Besylate 200 mg/ 200 mls @ 12.372 mls/hr 09/02/21 22:30 09/03/21 03:18 Sodium Chloride IV 0.5 mcg/kg/min .[id number] LEANDRO 3.538 mls/hr Titration Protocol 2 MCG/KG/MIN Sodium Chloride 1,000 mls @ 75 mls/hr 09/02/21 22:30 09/03/21 13:11 Saline 0.9% IV 75 mls/hr .[id number] LEANDRO Administration Norepinephrine Bitartrate 32 250 mls @ 2.416 mls/hr 09/03/21 12:00 09/03/21 13:26 mg/ Sodium Chloride IV 0.18 mcg/kg/min .Q24H LEANDRO 8.699 mls/hr Titration Protocol 0.05 MCG/KG/MIN Insulin Aspart 0 unit 09/03/21 00:00 09/03/21 13:17 Insulin Aspart (Novolog) 100 Unit/Ml Vial SQ 3 unit Q6H LEANDRO Administration Protocol Morphine Sulfate 2 mg 09/02/21 20:54 09/02/21 21:37 Morphine Sulfate 2 Mg/Ml Syringe IVP 2 mg Q4HR PRN Administration Mild Pain Pantoprazole Sodium 40 mg 09/03/21 10:30 09/03/21 13:09 Pantoprazole 40 Mg/10 Ml Vial IVP Not Given DAILY [facility]AN[facility]O Pravastatin Sodium 10 mg 08/30/21 21:00 09/02/21 21:48 Pravastatin Sodium 20 Mg Tab PO Not Given HS [facility]ANDRO Sodium Bicarbonate 650 mg 09/03/21 11:00 09/03/21 13:17 Sodium Bicarbonate Tab 650 Mg Tab PO 650 mg BID LEANDRO Administration Tamsulosin HCl 0.8 mg 08/30/21 09:00 09/03/21 08:43 Tamsulosin 0.4 Mg Cap.Er.24h PO 0.8 mg DAILY LEANDRO Administration Zinc Sulfate 220 mg 08/30/21 09:00 09/03/21 08:44 Zinc Sulfate 220 Mg Cap PO 220 mg DAILY LEANDRO Administration Intake and Output 09/03/21 09/03/21 09/03/21 06:59 14:59 22:59 Intake Total 7575.134 1332.256 225.282 Output Total 245 315 Balance 1460.281 911.256 225.282 Intake: IV 600 600 Sodium Chloride 0.9% 1, 600 600 000 ml @ 75 mls/hr IV . [id number] [facility] Rx#:[id number] Intake, IV Titration 1105.281 626.256 225.282 Amount Amiodarone 450 mg In 225.282 Dextrose 5% in Water 250 ml @ 0.5 MG/MIN 16.667 mls/hr IV .Q15H [facility] Rx#: [id number] Cisatracurium 200 mg In 45.286 Sodium Chloride 0.9% 180 ml @ 2 MCG/KG/MIN 12.372 mls/hr IV .[id number] [facility] Rx #:[id number] Heparin Sod,Pork in 0.45% 54.667 105.332 NaCl 25,000 unit In 0.45 % NaCl 1 250ml.bag @ 8. 4793 UNITS/KG/HR 8.742 mls/hr IV .Q24H [facility]AN[facility]O Rx#: [id number] Norepinephrine 32 mg In 1.047 Sodium Chloride 0.9% 218 ml @ 0.05 MCG/KG/MIN 2. 416 mls/hr IV .Q24H [facility]AN[facility]O Rx#:[id number] Norepinephrine 4 mg In 709.322 448.366 Sodium Chloride 0.9% 250 ml @ 0.05 MCG/KG/MIN 19. 641 mls/hr IV .[id number] [facility] Rx#:[id number] propofoL 1,000 mg In 296.006 71.511 Empty Bag 1 bag @ Titrate IV .Q0M [facility]AN[facility]O Rx#: [id number] Output: Urine 245 315 Other: Voiding Method Indwelling Catheter Indwelling Catheter Weight 103.1 kg 103.1 kg Patient Weight 09/04/21 05:59 Weight 103.1 kg 09/03/21 04:25 09/03/21 04:25
[2021-09-03] MEDS: CISATRACURIUM 200 MG in SODIUM CHLORIDE 0.9% 180 ML IV SCH (16:15)
--- NOTE | 2021-09-03 16:20 | PN ---
PROGRESS NOTE DATE OF SERVICE: 09/03/2021. REASON FOR FOLLOWUP: Pneumonia. INTERVAL HISTORY: The patient went into atrial fibrillation with RVR followed by respiratory distress. Patient then got intubated. The patient is currently on amiodarone. No fever. FiO2 is currently at 100%. No significant ( ), diarrhea or any other changes reported by nursing staff. PHYSICAL EXAMINATION: Blood pressure 115/82 with a pulse of 90, temperature is 97.5. He is currently 97% on 100% FiO2. General description is an elderly male intubated on the vent. Respiratory system: Unlabored breathing, decreased intensity of breath sounds. No wheeze. Heart S1, S2. Regular rate and rhythm. Abdomen soft, no tenderness. LABS: Hemoglobin 14.5, white count 17.8, creatinine 1.06. CRP is 20.1. Chest x-ray with diffuse lung infiltrate. DIAGNOSTIC IMPRESSION AND PLAN: Patient with acute respiratory failure which is multifactorial in this patient did have a COVID-19 pneumonia, now with possible atrial fibrillation with RVR complicated overall picture. The patient is covered with Eliquis, dexamethasone, zinc and ascorbic acid to continue and monitor clinical course closely. MMODL / IJN: [id number] /
--- NOTE | 2021-09-03 16:48 | ECHOF ---
Referral Reason:[facility] RVR MEASUREMENTS -------- HEIGHT: 177.8 cm WEIGHT: 103.0 kg BP: 91/59 RVIDd: 5.5 cm (< 3.3) IVSd: 1.0 cm (0.6 - 1.1) LVIDd: 3.2 cm (3.9 - 5.3) LVPWd: 1.1 cm (0.6 - 1.1) IVSs: 1.3 cm LVIDs: 2.3 cm LVPWs: 1.3 cm Ao Diam: 3.2 cm (2.0 - 3.7) AV Cusp: 1.8 cm (1.5 - 2.6) LA Diam: 4.0 cm (2.7 - 3.8) MV EXCURSION: 22.256 mm (> 18.000) MV EF SLOPE: 239 mm/s (70 - 150) EPSS: 0.7 cm FINDINGS -------- Atrial fibrillation. This was a technically difficult study with suboptimal views. Pt. on a vent. The left ventricular size is normal. There is borderline concentric left ventricular hypertrophy. Overall left ventricular systolic function is mild-moderately impaired with, an EF between 40 - 45 % . Left ventricular fillimg pressure cannot be estimated due to Atrial fibrillation. The right ventricle is severely enlarged. The left atrium is mildly dilated. The right atrium was not well visualized. 5.0mg of Lumason was utilized for enhancement of images Interatrial and interventricular septum intact. There is mild aortic valve sclerosis. There is no evidence of aortic regurgitation. There is no e vidence of aortic stenosis. Mild mitral regurgitation is present. Mild tricuspid regurgitation present. There is no evidence of pulmonary hypertension. The right v entricular systolic pressure, as measured by Doppler, is {RVSP}. The pulmonic valve was not well visualized. The aortic root size is normal. The inferior vena cava is mildly dilated. There is no pericardial effusion. CONCLUSIONS -------- 1. The left ventricular size is normal. 2. There is borderline concentric left ventricular hypertrophy. 3. Overall left ventricular systolic function is mild-moderately impaired with, an EF between 40 - 45 %. 4. Left ventricular fillimg pressure cannot be estimated due to Atrial fibrillation. 5. The right ventricle is severely enlarged. 6. The left atrium is mildly dilated. 7. There is mild aortic valve sclerosis. 8. Mild mitral regurgitation is present. 9. Mild tricuspid regurgitation present. 10. The inferior vena cava is mildly dilated. DRAG DOWN: Roya Cabrera RDCS
[2021-09-03 17:40] LABS: Glucose,Whole Blood 165 mg/dL (75-99)
[2021-09-03] MEDS: PRAVASTATIN SODIUM 20 MG TAB PO SCH (20:59)
[2021-09-03 23:31] LABS: Glucose,Whole Blood 166 mg/dL (75-99)
[2021-09-04 04:55] LABS: Glucose,Whole Blood 161 mg/dL (75-99)
[2021-09-04] MEDS: ARTIFICIAL TEARS-HYPROMELLOSE DROPS 15 ML BTL BOTH EYES SCH ×5 (04:59→20:04)
[2021-09-04] MEDS: INSULIN ASPART (NovoLOG) 100 UNIT/ML VIAL SQ SCH ×3 (04:59→17:46)
[2021-09-04 06:11] LABS: Basophils % (A) 0 %; Eosinophils % (A) 0 %; HCT 44.8 % (39.0-53.0); HGB 14.1 gm/dL (13.0-17.5); Lymphocytes # (A) 0.2 k/uL (1.0-4.8); Lymphocytes % (A) 2 %; MCH 30.7 pg (25.0-35.0); MCHC 31.6 g/dL (31.0-37.0); MCV 97.2 fL (80.0-100.0); Mean Platelet Volume 7.4; Monocytes # (A) 0.7 k/uL (0-1.0); Monocytes % (A) 5 %; Neutrophils # (A) 12.1 k/uL (1.3-7.7); Neutrophils % (A) 92 %; Platelet Count 307 k/uL (150-450); WBC 13.3 k/uL (3.8-10.6)
[2021-09-04 06:33] LABS: Potassium 4.3 mmol/L (3.5-5.1)
--- NOTE | 2021-09-04 06:38 | XR ---
EXAMINATION TYPE: XR chest 1V portable DATE OF EXAM: 09/04/2021 COMPARISON: 09/03/2021 HISTORY: Line placement TECHNIQUE: Single frontal view of the chest is obtained. FINDINGS: There is an ET tube 4.8 cm above the adeline. There is an NG tube coursing into the stomach . There is a left jugular central venous catheter terminating in the SVC/RA junction. There are diffuse alveolar interstitial infiltrates which are unchanged. Small bilateral pleural effu sions are not excluded. There is no pneumothorax. IMPRESSION: ET tube 4.8 cm above the adeline. No change in the diffuse infiltrates is described above .
[2021-09-04] MEDS: ALBUTEROL HFA INHALER INHALATION SCH ×4 (06:59→19:01)
[2021-09-04] MEDS: SYMBICORT 160-4.5 MCG INHALER INHALATION SCH ×2 (07:00→19:02)
[2021-09-04 07:11] LABS: ABG Base Excess -5.2 mmol/L; ABG HCO3 22 mmol/L (21-25); ABG Oxygen Saturation 98.1 % (94-97); ABG PCO2 47 mmHg (35-45); ABG PH 7.27 (7.35-7.45); ABG PO2 104 mmHg (83-108); ABG TCO2 23 mmol/L (19-24)
[2021-09-04 07:13] LABS: Allen Test Performed? no
[2021-09-04] MEDS: DULoxetine HCL 30 MG CAPSULE.DR PO SCH (08:53)
[2021-09-04] MEDS: DEXAMETHASONE SOD PHOSPHATE 10 MG/ML 1 ML VIAL IVP SCH (08:56)
[2021-09-04] MEDS: CHLORHEXIDINE GLUCONATE 15 ML CUP MUCOUS MEM SCH ×2 (08:56→20:04)
[2021-09-04] MEDS: PANTOPRAZOLE 40 MG/10 ML VIAL IVP SCH (08:56)
[2021-09-04] MEDS: CHOLECALCIFEROL 25 MCG (1000 IU) TABLET PO SCH (08:57)
[2021-09-04] MEDS: SODIUM BICARBONATE TAB 650 MG TAB PO SCH (08:57)
[2021-09-04] MEDS: AMIODARONE 200 MG TAB PO SCH (08:57)
[2021-09-04] MEDS: APIXABAN 5 MG TAB PO SCH ×2 (08:58→20:04)
[2021-09-04] MEDS: TAMSULOSIN 0.4 MG CAP.ER.24H PO SCH (08:59)
[2021-09-04] MEDS: ASCORBIC ACID 500 MG TAB PO SCH (09:01)
[2021-09-04] MEDS: ZINC SULFATE 220 MG CAP PO SCH (09:01)
[2021-09-04] MEDS: CISATRACURIUM 200 MG in SODIUM CHLORIDE 0.9% 180 ML IV SCH ×2 (09:03→12:58)
--- NOTE | 2021-09-04 10:34 | PN ---
PROGRESS NOTE Patient is seen for followup for acute kidney injury and hyponatremia. He remains on the vent. FiO2 is down to 65%. Levophed is decreased significantly. Patient has had good urine output. On examination today, case is discussed with nursing staff. Vital signs are reviewed. Blood pressure 101/79, heart rate 116 per minute. Patient is afebrile. FiO2 is at 65%. No significant edema noted. Heart and lungs are not examined. METER READER exam cannot be examined. Labs show sodium 130, potassium 4.3, chloride 104. CO2 is 20, BUN 35, creatinine 1.26, hemoglobin 14.1 g/dL. ASSESSMENT: 1. Hyponatremia, improved. Currently maintained on normal saline and continuing to improve. Suggest hypovolemic hyponatremia. Patient is not receiving a lot of free water through the NG tube. The sodium is up to 130 today. I will continue with the saline for now. 2. COVID pneumonia, currently on the vent. 3. Acute hypoxic respiratory failure secondary to COVID pneumonia. 4. Acute kidney injury, mostly acute tubular necrosis, associated with hypotension, hypoperfusion. Serum creatinine 1.26. Urine output is maintained. Continue with IV fluids for now. 5. Metabolic acidosis, currently improved. PLAN: Continue with saline. Repeat labs in a.m. MMODL / IJN: [id number] /
[2021-09-04 11:48] LABS: Glucose,Whole Blood 148 mg/dL (75-99)
[2021-09-04] MEDS: NOREPINEPHRINE 32 MG in SODIUM CHLORIDE 0.9% 218 ML IV SCH (12:58)
--- NOTE | 2021-09-04 13:50 | P.PN ---
Subjective Progress Note Date: 09/04/21 Principal diagnosis: Covid pneumonia. COVID-19 pneumonia 76-year-old male, who presents to the emergency department, on August 30. The patient has a history of atrial fibrillation, hyperlipidemia, hypertension, and COPD, and that she was home O2, at 2 L as needed. The patient presents to the emergency department with complaints of increasing shortness of breath, and cough, for the past 5 days. He apparently saw his doctor, 5 days ago and was given an antibiotic and steroid, but did not respond. Over the last 2 days, the patient states that his breathing has worsened. In addition, the patient has had some fevers and chills. There are no complaints of abdominal pain, nausea, vomiting, or diarrhea, or any genitourinary complaints. The patient did test positive for coronavirus on August 30. The patient did receive this vaccination against coronavirus. The patient is actually been sick for about 10 days or so. Currently labs data includes a white count of 12.2, hemoglobin hematocrit and platelet count all of which were normal. PT, INR, PTT, and d- dimer were all normal. Sodium was 125, potassium 4.5, chloride 93, CO2 23, anion gap 9, BUN 23, and creatinine 0.92. LDH was 687. C-reactive protein 20.1. The patient's chest x-ray was not really impressive, and did not show the typical infiltrates of coronavirus pneumonia. Currently, he's on 5 L nasal cannula, and also saline at 75 mL an hour. The patient is seen today 08/31/2021 in follow-up on the regular medical floor. He is awake and alert in no acute distress. He is currently maintaining O2 saturations in the mid 90s on 5 L high flow nasal cannula. He's been afebrile. Hemodynamically stable. Sodium 129. Potassium 4.2. Creatinine 1.0. Glucose 121. AST 56. ALT 31. Calcitonin 0.10. He remains on 0.9 normal saline at 75 ML's per hour. Continued on Decadron, Lovenox, vitamin supplements. Continued on Symbicort and albuterol. He does have home O2 that he wears mainly at night at 2 L/m per nasal cannula. Progress note dated 09/01/2021. The patient is again seen in room 482. The patient's currently on 15 L high flow oxygen, and saline at 75 mL an hour. The patient feels like he's feeling about the same today as he did yesterday. He states that he is no better, but he certainly no worse. His primary issues include primarily shortness of breath on exertion, and cough. Cough is mostly nonproductive, and can sometimes be harsh and painful. D-dimer today is 0.47. Sodium 125, potassium 4.2, chlorides 95, CO2 23, anion gap 7, BUN 20, creatinine 0.78. Chest x-ray shows bilateral patchy infiltrates, which are stable, or slightly worse. Progress note dated 09/04/2021. Currently, the patient was seen in the intensive care unit, room 250. He remains on the mechanical ventilator. He is on the volume assist control mode, rate 28, tidal volume 500, FiO2 65%, and PEEP of 15. On the same settings, and 80%, the patient's pO2 was 104, pCO2 is 47, and pH is 7.27. The patient remains on Nimbex at 0.5 mcg/kg/m, norepinephrine at 10 mcg/m, propofol at 50 mcg/kg/m, and saline at 75 mL an hour. The patient's getting vital AF, at 15 mL an hour, which is goal. White count 13.3, he will 14.1, hematocrit 44.8, and platelet count 307,000. Sodium 1:30, potassium 4.3, chlorides 104, CO2 20, anion gap 6, BUN 35, and creatinine 1.26. Chest x-ray continues to show diffuse bilateral infiltrates, without change. Objective - Vital Signs Vital signs: Vital Signs Temp 98.6 F 09/04/21 12:00 Pulse 135 H 09/04/21 12:30 Resp 28 H 09/04/21 12:30 BP 105/74 09/04/21 12:30 Pulse Ox 92 L 09/04/21 12:30 Intake & Output 09/03/21 09/04/21 09/04/21 19:59 06:59 18:59 Intake Total 462.651 Output Total 220 Balance 242.651 Weight Intake: IV 240 Sodium Chloride 0.9% 1, 240 000 ml @ 75 mls/hr IV . [id number] [facility] Rx#:[id number] Intake, IV Titration 222.651 Amount Amiodarone 450 mg In Dextrose 5% in Water 250 ml @ 0.5 MG/MIN 16.667 mls/hr IV .Q15H [facility] Rx#: [id number] Cisatracurium 200 mg In 122.651 Sodium Chloride 0.9% 180 ml @ 2 MCG/KG/MIN 12.372 mls/hr IV .[id number] [facility] Rx #:[id number] Heparin Sod,Pork in 0.45% NaCl 25,000 unit In 0.45 % NaCl 1 250ml.bag @ 8. 4793 UNITS/KG/HR 8.742 mls/hr IV .Q24H [facility] Rx#: [id number] Norepinephrine 32 mg In Sodium Chloride 0.9% 218 ml @ 0.05 MCG/KG/MIN 2. 416 mls/hr IV .Q24H [facility] Rx#:[id number] Norepinephrine 4 mg In Sodium Chloride 0.9% 250 ml @ 0.05 MCG/KG/MIN 19. 641 mls/hr IV .[id number] [facility] Rx#:[id number] propofoL 1,000 mg In 100 Empty Bag 1 bag @ Titrate IV .Q0M [facility] Rx#: [id number] Tube Feeding Other Output: Urine 220 Other: Voiding Method Indwelling Catheter ABP, PAP, CO, CI - Last Documented Arterial Blood Pressure 111/62 - Exam No acute distress, currently sedated and paralyzed, with an orally placed endotracheal tube and NG tube. HEENT examination is grossly unremarkable. Neck supple. Full range of motion. No adenopathy thyromegaly or neck vein distention. Cardiovascular examination reveals regular rhythm rate. S1-S2 normal. No S3 or S4. No discernible murmur noted. Heart sounds are distant. Heart rate 122 bpm. Lungs reveal coarse bilateral rhonchi. No wheezes or crackles. Breath sounds equal. Saturations are 92%. Abdomen soft with bowel sounds. No masses or tenderness. Extremities are intact. No cyanosis clubbing or edema. Skin is without rash or lesion. Neurologic examination cannot be adequately assessed as the patient is currently sedated and paralyzed. - Labs CBC & Chem 7: 09/04/21 04:55 09/04/21 04:55 Labs: Abnormal Lab Results - Last 24 Hours (Table) 09/03/21 09/03/21 09/04/21 Range/Units 17:38 23:28 04:53 WBC (3.8-10.6) k/uL Neutrophils # (1.3-7.7) k/uL Lymphocytes # (1.0-4.8) k/uL ABG pH (7.35-7.45) ABG pCO2 (35-45) mmHg ABG O2 Saturation (94-97) % Sodium (137-145) mmol/L Carbon Dioxide (22-30) mmol/L BUN (9-20) mg/dL Creatinine (0.66-1.25) mg/dL Glucose (74-99) mg/dL POC Glucose (mg/dL) 165 H 166 H 161 H (75-99) mg/dL Calcium (8.4-10.2) mg/dL 09/04/21 09/04/21 09/04/21 Range/Units 04:55 04:55 07:09 WBC 13.3 H (3.8-10.6) k/uL Neutrophils # 12.1 H (1.3-7.7) k/uL Lymphocytes # 0.2 L (1.0-4.8) k/uL ABG pH 7.27 L (7.35-7.45) ABG pCO2 47 H (35-45) mmHg ABG O2 Saturation 98.1 H (94-97) % Sodium 130 L (137-145) mmol/L Carbon Dioxide 20 L (22-30) mmol/L BUN 35 H (9-20) mg/dL Creatinine 1.26 H (0.66-1.25) mg/dL Glucose 167 H (74-99) mg/dL POC Glucose (mg/dL) (75-99) mg/dL Calcium 8.0 L (8.4-10.2) mg/dL 09/04/21 Range/Units 11:36 WBC (3.8-10.6) k/uL Neutrophils # (1.3-7.7) k/uL Lymphocytes # (1.0-4.8) k/uL ABG pH (7.35-7.45) ABG pCO2 (35-45) mmHg ABG O2 Saturation (94-97) % Sodium (137-145) mmol/L Carbon Dioxide (22-30) mmol/L BUN (9-20) mg/dL Creatinine (0.66-1.25) mg/dL Glucose (74-99) mg/dL POC Glucose (mg/dL) 148 H (75-99) mg/dL Calcium (8.4-10.2) mg/dL Microbiology - Last 24 Hours (Table) 09/03/21 01:22 Gram Stain - Preliminary Sputum Sputum Culture - Preliminary Assessment and Plan Assessment: Acute hypoxemic respiratory failure, secondary to coronavirus associated pneumonia. Status post intubation and mechanical ventilation, on 09/02/2021, for worsening hypoxemic respiratory failure. History of atrial fibrillation. History of hyperlipidemia. History of hypertension. History of COPD, with chronic hypoxemic respiratory failure. History of BPH. History of Mnire's disease. History of obstructive sleep apnea syndrome. Valvular heart disease. Status post left thoracotomy for closure of diaphragmatic hernia. Plan: Plan dated 08/30/2021. Currently, the patient is on vitamin C, vitamin D3, and zinc. In addition, the patient's getting Decadron, and Lovenox at usual doses. The patient is beyond the window for REM. The patient is not sick enough for Baricitinib. The rest of his medications appear appropriate including his updrafts. I will add a Symbicort inhaler. Additional recommendations and suggestions are forthcoming. Although his d-dimer is not elevated, a CT angiogram or a plain CT will likely show diffuse groundglass opacities consistent with coronavirus associated pneumonia. Plan dated 09/01/2021. Currently, the patient is on albuterol inhaler, Symbicort, Decadron, Lovenox, and vitamin C, vitamin D3, and zinc. The patient should be considered for ERICA given his rapid progression and oxygen requirements. The patient states that clinically, he is no better or no worse and he was yesterday. His primary complaint is shortness of breath on exertion, and a dry harsh painful cough. We will continue to follow make recommendations where appropriate. Prognosis is guarded. Plan dated 09/03/2021. The patient remains on appropriate medications. The ERICA is discontinued as per protocol. The patient continues on Lovenox, Decadron, vitamin C, vitamin D3, and zinc. The patient also continues on Symbicort, an albuterol. Central line and arterial line were placed a couple days ago. The patient's overall prognosis remains guarded. We will continue to follow make recommendations where appropriate. The patient remains on a number drips including Nimbex, no epinephrine, propofol, and saline. The saline IV will be changed to KVO. Time with Patient: Greater than 30
--- NOTE | 2021-09-04 14:02 | P.PN ---
Subjective HISTORY OF PRESENTING ILLNESS Patient is a pleasant 76-year-old male with history of paroxysmal atrial fibrillation and hyperlipidemia hypertension and COPD and new onset COVID-19 who presents secondary to shortness breath and cough or the prior 5 days. Patient was found have COVID-19 pneumonia and was subsequently intubated and sedated. Patient has been receiving supportive care and ICU however 1 into atrial fibrillation with RVR yesterday. He was placed on amiodarone drip and his home metoprolol was also added. He has been maintained on a low dose of norepinephrine. He has subsequently converted to normal sinus rhythm. 09/04 Patient seen and examined. Patient was somewhat better controlled however now A. fib with heart rates in the 140s. He was switched from the IV amiodarone to the oral amiodarone and may be some correlation with when he was switched. His metoprolol was stopped secondary to hypotension on norepinephrine. REVIEW OF SYSTEMS At the time of my exam: CONSTITUTIONAL: Denies fever or chills. CARDIOVASCULAR: Denies chest pain, shortness of breath, orthopnea, PND or palpitations. RESPIRATORY: Denies cough. GASTROINTESTINAL: Denies abdominal pain, diarrhea, constipation, nausea or vomiting. MUSCULOSKELETAL: Denies myalgias. NEUROLOGIC: Denies numbness, tingling or weakness. ENDOCRINE: Denies fatigue, weight change, polydipsia or polyurina. GENITOURINARY: Denies burning, hematuria or urgency with micturation. HEMATOLOGIC: Denies history of anemia or bleeding. PHYSICAL EXAMINATION Vital signs reviewed. Patient not examined secondary to COVID-19 pneumonia. Appeared sedated and comfortable on ventilator. ASSESSMENT 1. Paroxysmal atrial fibrillation, currently back in normal sinus rhythm 2. Acute on chronic respiratory failure 3. COPD 4. COVID-19 pneumonia 5. Hypertension 6. Hyperlipidemia 7. Septic shock PLAN Patient has been fairly symptomatic from his atrial fibrillation. Previously responded well to the amiodarone. We transitioned over to oral amiodarone however back in A. fib. We will attempt IV amiodarone drip and see if this converted him. Ideally beta rosalinda however this has been held secondary to hypotension on norepinephrine due to septic shock. Continue supportive care. Objective - Vital Signs Vital signs: Vital Signs Temp 98.6 F 09/04/21 12:00 Pulse 135 H 09/04/21 12:30 Resp 28 H 09/04/21 12:30 BP 105/74 09/04/21 12:30 Pulse Ox 92 L 09/04/21 12:30 Intake & Output 09/03/21 09/04/21 09/04/21 19:59 06:59 18:59 Intake Total 462.651 Output Total 220 Balance 242.651 Weight Intake: IV 240 Sodium Chloride 0.9% 1, 240 000 ml @ 75 mls/hr IV . [id number] [facility] Rx#:[id number] Intake, IV Titration 222.651 Amount Amiodarone 450 mg In Dextrose 5% in Water 250 ml @ 0.5 MG/MIN 16.667 mls/hr IV .Q15H [facility] Rx#: [id number] Cisatracurium 200 mg In 122.651 Sodium Chloride 0.9% 180 ml @ 2 MCG/KG/MIN 12.372 mls/hr IV .[id number] [facility] Rx #:[id number] Heparin Sod,Pork in 0.45% NaCl 25,000 unit In 0.45 % NaCl 1 250ml.bag @ 8. 4793 UNITS/KG/HR 8.742 mls/hr IV .Q24H [facility] Rx#: [id number] Norepinephrine 32 mg In Sodium Chloride 0.9% 218 ml @ 0.05 MCG/KG/MIN 2. 416 mls/hr IV .Q24H [facility] Rx#:[id number] Norepinephrine 4 mg In Sodium Chloride 0.9% 250 ml @ 0.05 MCG/KG/MIN 19. 641 mls/hr IV .[id number] [facility] Rx#:[id number] propofoL 1,000 mg In 100 Empty Bag 1 bag @ Titrate IV .Q0M [facility] Rx#: [id number] Tube Feeding Other Output: Urine 220 Other: Voiding Method Indwelling Catheter ABP, PAP, CO, CI - Last Documented Arterial Blood Pressure 111/62 - Labs CBC & Chem 7: 09/04/21 04:55 09/04/21 04:55 Labs: Abnormal Lab Results - Last 24 Hours (Table) 09/03/21 09/03/21 09/04/21 Range/Units 17:38 23:28 04:53 WBC (3.8-10.6) k/uL Neutrophils # (1.3-7.7) k/uL Lymphocytes # (1.0-4.8) k/uL ABG pH (7.35-7.45) ABG pCO2 (35-45) mmHg ABG O2 Saturation (94-97) % Sodium (137-145) mmol/L Carbon Dioxide (22-30) mmol/L BUN (9-20) mg/dL Creatinine (0.66-1.25) mg/dL Glucose (74-99) mg/dL POC Glucose (mg/dL) 165 H 166 H 161 H (75-99) mg/dL Calcium (8.4-10.2) mg/dL 09/04/21 09/04/21 09/04/21 Range/Units 04:55 04:55 07:09 WBC 13.3 H (3.8-10.6) k/uL Neutrophils # 12.1 H (1.3-7.7) k/uL Lymphocytes # 0.2 L (1.0-4.8) k/uL ABG pH 7.27 L (7.35-7.45) ABG pCO2 47 H (35-45) mmHg ABG O2 Saturation 98.1 H (94-97) % Sodium 130 L (137-145) mmol/L Carbon Dioxide 20 L (22-30) mmol/L BUN 35 H (9-20) mg/dL Creatinine 1.26 H (0.66-1.25) mg/dL Glucose 167 H (74-99) mg/dL POC Glucose (mg/dL) (75-99) mg/dL Calcium 8.0 L (8.4-10.2) mg/dL 09/04/21 Range/Units 11:36 WBC (3.8-10.6) k/uL Neutrophils # (1.3-7.7) k/uL Lymphocytes # (1.0-4.8) k/uL ABG pH (7.35-7.45) ABG pCO2 (35-45) mmHg ABG O2 Saturation (94-97) % Sodium (137-145) mmol/L Carbon Dioxide (22-30) mmol/L BUN (9-20) mg/dL Creatinine (0.66-1.25) mg/dL Glucose (74-99) mg/dL POC Glucose (mg/dL) 148 H (75-99) mg/dL Calcium (8.4-10.2) mg/dL Microbiology - Last 24 Hours (Table) 09/03/21 01:22 Gram Stain - Preliminary Sputum Sputum Culture - Preliminary
[2021-09-04] MEDS ORDERED: AMIODARONE 360 MG in DEXTROSE 5% IN WATER 200 ML IV ONE ×2 (14:09)
[2021-09-04] MEDS: SODIUM CHLORIDE 0.9% 1,000 ML IV SCH (14:35)
[2021-09-04] MEDS ORDERED: CISATRACURIUM 2 MG/ML 5 ML VIAL IV ONE (16:10)
[2021-09-04] MEDS: AMIODARONE 450 MG in DEXTROSE 5% IN WATER 250 ML IV SCH ×4 (16:49→19:27)
[2021-09-04 17:35] LABS: Glucose,Whole Blood 161 mg/dL (75-99)
[2021-09-04] MEDS: PRAVASTATIN SODIUM 20 MG TAB PO SCH (20:04)
[2021-09-04] MEDS ORDERED: DILTIAZEM DRIP BOLUS FROM BAG 1 MG SOLN IV ONE (20:43)
[2021-09-04] MEDS: DILTIAZEM 125 MG in SODIUM CHLORIDE 0.9% 100 ML IV SCH (21:44)
--- NOTE | 2021-09-04 21:55 | PN ---
PROGRESS NOTE DATE OF SERVICE: 09/04/2021 REASON FOR FOLLOWUP: COVID-19 pneumonia. INTERVAL HISTORY: The patient is afebrile. The patient remains intubated on the vent. Patient is on amiodarone for atrial fibrillation with RVR. FiO2 currently down to 65%. No significant purulent secretions through the ET or diarrhea or any other changes reported by the nursing staff. PHYSICAL EXAMINATION: Blood pressure 128/76, pulse of , temperature of 99.1. He is 91% on 65% FiO2. General description is an elderly male intubated on the vent. Respiratory system: Unlabored breathing, decreased intensity of breath sounds. No wheeze. Heart S1, S2. Regular rate and rhythm. Abdomen soft, no tenderness. Extremities no edema of the feet. LABS: Hemoglobin is 14.9, white count 13.3, BUN of 35. Creatinine is 1.26. Sputum so far negative. DIAGNOSTIC IMPRESSION AND PLAN: Patient with acute respiratory failure which is multifactorial in this patient who did have acute COVID-19 pneumonia with subsequent worsening of his respiratory status, requiring intubation. Also with atrial fibrillation with RVR. X-ray did not show any significant drainage. The patient is currently covered with dexamethasone, Lovenox, zinc and ascorbic acid; to continue while waiting for report and monitor his clinical course closely. MMODL / IJN: [id number] /
[2021-09-05 00:37] LABS: Glucose,Whole Blood 171 mg/dL (75-99)
[2021-09-05] MEDS: INSULIN ASPART (NovoLOG) 100 UNIT/ML VIAL SQ SCH ×4 (00:39→17:25)
[2021-09-05] MEDS: ARTIFICIAL TEARS-HYPROMELLOSE DROPS 15 ML BTL BOTH EYES SCH ×6 (00:40→19:56)
[2021-09-05] MEDS: AMIODARONE 450 MG in DEXTROSE 5% IN WATER 250 ML IV SCH ×4 (01:42→16:12)
[2021-09-05] MEDS: NOREPINEPHRINE 32 MG in SODIUM CHLORIDE 0.9% 218 ML IV SCH (04:21)
[2021-09-05 05:49] LABS: Glucose,Whole Blood 156 mg/dL (75-99)
[2021-09-05 06:06] LABS: Basophils # (A) 0.1 k/uL (0-0.2); Basophils % (A) 0 %; Eosinophils # (A) 0.1 k/uL (0-0.7); Eosinophils % (A) 0 %; HCT 47.3 % (39.0-53.0); HGB 14.9 gm/dL (13.0-17.5); Lymphocytes # (A) 0.1 k/uL (1.0-4.8); Lymphocytes % (A) 0 %; MCH 30.9 pg (25.0-35.0); MCHC 31.5 g/dL (31.0-37.0); Mean Platelet Volume 7.6; Monocytes # (A) 1.1 k/uL (0-1.0); Monocytes % (A) 4 %; Neutrophils # (A) 29.9 k/uL (1.3-7.7); Neutrophils % (A) 94 %; Platelet Count 311 k/uL (150-450); RBC 4.83 m/uL (4.30-5.90); WBC 31.7 k/uL (3.8-10.6)
[2021-09-05 06:19] LABS: Albumin 2.6 g/dL (3.5-5.0); Calcium 8.4 mg/dL (8.4-10.2); Potassium 4.9 mmol/L (3.5-5.1); Total Bilirubin 0.6 mg/dL (0.2-1.3); Total Protein 5.5 g/dL (6.3-8.2)
[2021-09-05] MEDS ORDERED: SODIUM CHLORIDE 0.9% 1,000 ML IV ONE (07:01)
--- NOTE | 2021-09-05 07:01 | P.PN ---
Subjective Progress Note Date: 09/05/21 76-year-old male, who presents to the emergency department, on August 30. The patient has a history of atrial fibrillation, hyperlipidemia, hypertension, and COPD, history of lung herniation, and that he was home O2, at 2 L as needed. The patient presents to the emergency department with complaints of increasing shortness of breath, and cough and the patient became progressively more hypoxic requiring high levels of oxygen initially went on high flow oxygen and ultimately the patient was intubated and placed on a mechanical ventilator as of 09/02/2001. The patient remains on a mechanical ventilator on assist control mode with a tidal volume of 500, FiO2 of 65%, PEEP of 15 and the rate of 28. The peak airway pressure is 33. Static pressures 27. At this point in time, the patient is intubated, sedated currently on propofol running at 60 g per program per minute, paralyzed with Nimbex at 1 mcg/kg per minute and the patient is on a NSS rate of 20 mL an hour. The patient is also hypotensive, currently on pressors and norepinephrine infusion is running at the rate of 0.16 g per /kg/ minute. The patient remains in atrial fibrillation. The patient was quite tachycardic with underlying atrial fibrillation. The patient is currently on amiodarone drip running at 0.5 micrograms per kilogram per minute and the patient is also on Cardizem drip at 5 mg an hour. His current heart rate is in order of 125 beats per minute, irregular. The chest x-ray showing diffuse bilateral pulmonary infiltrates more so in the lower lobes bilaterally. Orotracheal tube is in a good location. The patient has a left internal jugular triple-lumen catheter in place. Orogastric tube is also in place. He does have evidence of lung herniation on the left. The patient was started on enteral fee ding for nutritional support and the patient is receiving vital AF at the rate of 15 mL an hour. The patient is currently on Decadron 6 mg IV every 24 hours. The patient is on long-term and correlation with Eliquis 5 mg by mouth twice a day. Blood work from today shows a sodium level of 1:30. This is improved compared to yesterday. The patient is developing acute kidney injury. Creatinine is up to 1.5 from a baseline of 1.06 and creatinine is up to 47. In terms of his inflammatory markers, LDH from 09/03/2021 was 1179 with a CRP of 20. His white cell count is up to 31.7. The patient is afebrile. Nevertheless, based on his underlying hypotension and new onset leukocytosis, a super infection is highly considered in this patient. His most recent pro- calcitonin level is 0.1 and this is from 08/30/2021 and this is to be repeated. The patient is not receiving any form of antibiotic coverage at this point in time. Objective - Vital Signs Vital signs: Vital Signs Temp 99 F 09/05/21 04:00 Pulse 117 H 09/05/21 06:00 Resp 28 H 09/05/21 06:00 BP 115/75 09/05/21 06:00 Pulse Ox 86 L 09/05/21 06:00 Intake & Output 09/04/21 09/04/21 09/05/21 06:59 18:59 06:59 Intake Total 1140.927 869.793 Output Total 420 475 Balance 720.927 394.793 Weight 104.1 kg 104.9 kg Intake: IV 430 220 .9 220 Sodium Chloride 0.9% 1, 430 000 ml @ 75 mls/hr IV . [id number] [facility] Rx#:[id number] Intake, IV Titration 530.927 469.793 Amount Cisatracurium 200 mg In 134.267 39.436 Sodium Chloride 0.9% 180 ml @ 2 MCG/KG/MIN 12.372 mls/hr IV .[id number] [facility] Rx #:[id number] Norepinephrine 32 mg In 96.66 50.929 Sodium Chloride 0.9% 218 ml @ 0.05 MCG/KG/MIN 2. 416 mls/hr IV .Q24H [facility] Rx#:[id number] propofoL 1,000 mg In 300 379.428 Empty Bag 1 bag @ Titrate IV .Q0M [facility] Rx#: [id number] Tube Feeding 180 120 Other 60 Output: Urine 420 475 Other: Voiding Method Indwelling Catheter Indwelling Catheter ABP, PAP, CO, CI - Last Documented Arterial Blood Pressure 99/53 - Exam No acute distress, currently sedated and paralyzed, with an orally placed endotracheal tube and NG tube. HEENT examination is grossly unremarkable. Neck supple. Full range of motion. No adenopathy thyromegaly or neck vein distention. Cardiovascular examination reveals regular rhythm rate. S1-S2 normal. No S3 or S4. No discernible murmur noted. Heart sounds are distant. Heart rate 122 bpm. Lungs reveal coarse bilateral rhonchi. No wheezes or crackles. Breath sounds equal. Saturations are 92%. Abdomen soft with bowel sounds. No masses or tenderness. Extremities are intact. No cyanosis clubbing or edema. Skin is without rash or lesion. Neurologic examination cannot be adequately assessed as the patient is currently sedated and paralyzed. - Labs CBC & Chem 7: 09/05/21 05:44 09/05/21 05:44 Labs: Abnormal Lab Results - Last 24 Hours (Table) 09/04/21 09/04/21 09/04/21 Range/Units 07:09 11:36 17:33 WBC (3.8-10.6) k/uL Neutrophils # (1.3-7.7) k/uL Lymphocytes # (1.0-4.8) k/uL Monocytes # (0-1.0) k/uL ABG pH 7.27 L (7.35-7.45) ABG pCO2 47 H (35-45) mmHg ABG O2 Saturation 98.1 H (94-97) % Sodium (137-145) mmol/L Carbon Dioxide (22-30) mmol/L BUN (9-20) mg/dL Creatinine (0.66-1.25) mg/dL Glucose (74-99) mg/dL POC Glucose (mg/dL) 148 H 161 H (75-99) mg/dL Total Protein (6.3-8.2) g/dL Albumin (3.5-5.0) g/dL 09/05/21 09/05/21 09/05/21 Range/Units 00:36 05:44 05:44 WBC 31.7 H (3.8-10.6) k/uL Neutrophils # 29.9 H (1.3-7.7) k/uL Lymphocytes # 0.1 L (1.0-4.8) k/uL Monocytes # 1.1 H (0-1.0) k/uL ABG pH (7.35-7.45) ABG pCO2 (35-45) mmHg ABG O2 Saturation (94-97) % Sodium 130 L (137-145) mmol/L Carbon Dioxide 21 L (22-30) mmol/L BUN 47 H (9-20) mg/dL Creatinine 1.53 H (0.66-1.25) mg/dL Glucose 166 H (74-99) mg/dL POC Glucose (mg/dL) 171 H (75-99) mg/dL Total Protein 5.5 L (6.3-8.2) g/dL Albumin 2.6 L (3.5-5.0) g/dL 09/05/21 Range/Units 05:48 WBC (3.8-10.6) k/uL Neutrophils # (1.3-7.7) k/uL Lymphocytes # (1.0-4.8) k/uL Monocytes # (0-1.0) k/uL ABG pH (7.35-7.45) ABG pCO2 (35-45) mmHg ABG O2 Saturation (94-97) % Sodium (137-145) mmol/L Carbon Dioxide (22-30) mmol/L BUN (9-20) mg/dL Creatinine (0.66-1.25) mg/dL Glucose (74-99) mg/dL POC Glucose (mg/dL) 156 H (75-99) mg/dL Total Protein (6.3-8.2) g/dL Albumin (3.5-5.0) g/dL Microbiology - Last 24 Hours (Table) 09/03/21 01:22 Gram Stain - Preliminary Sputum Sputum Culture - Preliminary Assessment and Plan Plan: 1 Acute hypoxemic respiratory failure, secondary to coronavirus COVID 19 - associated pneumonia. Status post intubation and mechanical ventilation, on 02/2021, for worsening hypoxemic respiratory failure. 2 History of atrial fibrillation. Patient is currently on amiodarone drip and Cardizem drip for rate control. The patient on long-term and to cognition with Eliquis 5 mg by mouth twice a day. 3 systolic heart failure with an ejection fraction 40-45% 4 hypotension currently on pressors with norepinephrine infusion running at 0.16 mcg/kg per minute. Obviously, with a new onset leukocytosis and hypotension, sepsis is a constellation this patient. Cultures will be sent and the patient will be started on broad-spectrum antibiotics. 5 COPD, with chronic hypoxemic respiratory failure. 6 acute kidney injury and the patient's progressive worsening renal function and creatinine is up to 1.57, rule out community related ATN. Rule out hypotension- induced ATN 7 Mnire's disease. 8 obstructive sleep apnea syndrome. Not utilizing or nontolerant to CPAP therapy on outpatient basis 9 Valvular heart disease. Please refer to the most recent echocardiogram. Ejection fraction is 40-45%.No significant valvular abnormalities based on the most recent echo the 10 Status post left thoracotomy for closure of diaphragmatic hernia. 11 history of hypertension 12 history of hyperlipidemia 13 BPH Plan: Continue ventilator support. Drop the flow down to 60. Repeated blood gas today the peak and static pressures are 33 and 27 respectively. We'll give the patient had paralytic holiday Check blood cultures, and sputum cultures Start the patient on IV cefepime 2 g every 12 hours Continue Decadron Repeat inflammatory markers for tomorrow including LDH and CRP continue anticoagulation with Eliquis Keep the patient sedated with propofol Monitor renal function Give the patient a bolus of 1 L as the patient is oliguric and the patient is developing also an acute kidney injury Continue enteral feeding for nutritional support Condition is obvious the critical and outcomes poor baseline above-mentioned comorbidities. We'll continue to follow, critical care evaluation more than 30 minutes. Time with Patient: Greater than 30 Time with Patient: Greater than 30
[2021-09-05 07:09] LABS: ABG Base Excess -4.4 mmol/L; ABG HCO3 23 mmol/L (21-25); ABG PCO2 54 mmHg (35-45); ABG PH 7.24 (7.35-7.45); ABG PO2 59 mmHg (83-108); ABG TCO2 25 mmol/L (19-24)
[2021-09-05 07:10] LABS: Allen Test Performed? no
--- NOTE | 2021-09-05 08:22 | XR ---
EXAMINATION TYPE: XR chest 1V portable DATE OF EXAM: 09/05/2021 COMPARISON: Chest x-ray 09/04/2021 HISTORY: Covid pneumonia, intubated TECHNIQUE: Single frontal view of the chest is obtained. FINDINGS: Endotracheal tube, NG tube, left jugular central venous catheter are overlying stable posi tions. Bilateral interstitial and airspace disease is again seen. Hemidiaphragms are obscured. There is no evident pneumothorax. Cardiac mediastinal silhouette is stable. There are overlying artifacts. IMPRESSION: Correlate for pneumonia, congestive heart failure and pulmonary edema, ARDS
[2021-09-05] MEDS: SYMBICORT 160-4.5 MCG INHALER INHALATION SCH ×2 (08:47→19:37)
[2021-09-05] MEDS: ALBUTEROL HFA INHALER INHALATION SCH ×4 (08:47→19:37)
--- NOTE | 2021-09-05 08:47 | P.PN ---
Subjective Patient is seen in follow-up for acute kidney injury and hyponatremia. Sodium level stable at 1:30. Creatinine 1.53 today. Receiving tube feeds. Urine output 30-50 mL an hour. On Levophed. Also on Cardizem as well as amiodarone drip for A. fib. Vital signs are stable. On vasopressor support. HEENT: Intubated. LUNGS: Breath sounds decreased. HEART: Irregular rate and rhythm. ABDOMEN: Soft, no distention. EXTREMITITES: Trace edema. Objective - Vital Signs Vital signs: Vital Signs Temp 99 F 09/05/21 04:00 Pulse 117 H 09/05/21 07:00 Resp 31 H 09/05/21 07:00 BP 116/61 09/05/21 07:00 Pulse Ox 86 L 09/05/21 07:00 Intake & Output 09/04/21 09/05/21 09/05/21 18:59 06:59 18:59 Intake Total 1140.927 933.715 150.617 Output Total 420 475 60 Balance 720.927 458.715 90.617 Weight 104.1 kg 104.9 kg Intake: IV 430 220 20 .9 220 20 Sodium Chloride 0.9% 1, 430 000 ml @ 75 mls/hr IV . [id number] [facility] Rx#:[id number] Intake, IV Titration 530.927 533.715 115.617 Amount Cisatracurium 200 mg In 134.267 103.358 0 Sodium Chloride 0.9% 180 ml @ 2 MCG/KG/MIN 12.372 mls/hr IV .[id number] [facility] Rx #:[id number] Norepinephrine 32 mg In 96.66 50.929 34.331 Sodium Chloride 0.9% 218 ml @ 0.05 MCG/KG/MIN 2. 416 mls/hr IV .Q24H [facility] Rx#:[id number] propofoL 1,000 mg In 300 379.428 81.286 Empty Bag 1 bag @ Titrate IV .Q0M [facility] Rx#: [id number] Tube Feeding 180 120 15 Other 60 Output: Urine 420 475 60 Other: Voiding Method Indwelling Catheter Indwelling Catheter ABP, PAP, CO, CI - Last Documented Arterial Blood Pressure 106/57 - Labs CBC & Chem 7: 09/05/21 05:44 09/05/21 05:44 Labs: Abnormal Lab Results - Last 24 Hours (Table) 09/04/21 09/04/21 09/05/21 Range/Units 11:36 17:33 00:36 WBC (3.8-10.6) k/uL Neutrophils # (1.3-7.7) k/uL Lymphocytes # (1.0-4.8) k/uL Monocytes # (0-1.0) k/uL ABG pH (7.35-7.45) ABG pCO2 (35-45) mmHg ABG pO2 (83-108) mmHg ABG Total CO2 (19-24) mmol/L ABG O2 Saturation (94-97) % Sodium (137-145) mmol/L Carbon Dioxide (22-30) mmol/L BUN (9-20) mg/dL Creatinine (0.66-1.25) mg/dL Glucose (74-99) mg/dL POC Glucose (mg/dL) 148 H 161 H 171 H (75-99) mg/dL Total Protein (6.3-8.2) g/dL Albumin (3.5-5.0) g/dL 09/05/21 09/05/21 09/05/21 Range/Units 05:44 05:44 05:48 WBC 31.7 H (3.8-10.6) k/uL Neutrophils # 29.9 H (1.3-7.7) k/uL Lymphocytes # 0.1 L (1.0-4.8) k/uL Monocytes # 1.1 H (0-1.0) k/uL ABG pH (7.35-7.45) ABG pCO2 (35-45) mmHg ABG pO2 (83-108) mmHg ABG Total CO2 (19-24) mmol/L ABG O2 Saturation (94-97) % Sodium 130 L (137-145) mmol/L Carbon Dioxide 21 L (22-30) mmol/L BUN 47 H (9-20) mg/dL Creatinine 1.53 H (0.66-1.25) mg/dL Glucose 166 H (74-99) mg/dL POC Glucose (mg/dL) 156 H (75-99) mg/dL Total Protein 5.5 L (6.3-8.2) g/dL Albumin 2.6 L (3.5-5.0) g/dL 09/05/21 Range/Units 08:05 WBC (3.8-10.6) k/uL Neutrophils # (1.3-7.7) k/uL Lymphocytes # (1.0-4.8) k/uL Monocytes # (0-1.0) k/uL ABG pH 7.24 L (7.35-7.45) ABG pCO2 54 H (35-45) mmHg ABG pO2 59 L* (83-108) mmHg ABG Total CO2 25 H (19-24) mmol/L ABG O2 Saturation 89.0 L (94-97) % Sodium (137-145) mmol/L Carbon Dioxide (22-30) mmol/L BUN (9-20) mg/dL Creatinine (0.66-1.25) mg/dL Glucose (74-99) mg/dL POC Glucose (mg/dL) (75-99) mg/dL Total Protein (6.3-8.2) g/dL Albumin (3.5-5.0) g/dL Microbiology - Last 24 Hours (Table) 09/03/21 01:22 Gram Stain - Preliminary Sputum Sputum Culture - Preliminary Assessment and Plan Plan: Assessment: 1. Hypovolemic hyponatremia improved with IV hydration. Sodium level stable at 1:30 today. 2. Acute kidney injury secondary to ATN secondary to hypotension and sepsis. Creatinine 1.53 today. 3. A. fib with RVR maintained on amiodarone and Cardizem drip. 4. COVID-19 pneumonia. Intubated. On 70% FiO2. 5. Metabolic acidosis secondary to acute kidney injury. 6. Acute hypoxic respiratory failure. Plan: Add oral bicarbonate. Status post fluid bolus this morning. Wean FiO2 and vasopressors. Maintain tube feeds. Receiving minimal free water. Continue to monitor renal function and urine output.
[2021-09-05] MEDS ORDERED: SODIUM BICARBONATE TAB 650 MG TAB PO SCH (09:00)
[2021-09-05] MEDS: CEFEPIME 2 GM in SODIUM CHLORIDE 0.9% 100 ML IVPB SCH ×2 (09:22→20:00)
[2021-09-05] MEDS: CHLORHEXIDINE GLUCONATE 15 ML CUP MUCOUS MEM SCH ×2 (09:22→20:00)
[2021-09-05] MEDS: DEXAMETHASONE SOD PHOSPHATE 10 MG/ML 1 ML VIAL IVP SCH (09:22)
[2021-09-05] MEDS: SODIUM BICARBONATE TAB 650 MG TAB PO SCH ×2 (09:23→20:00)
[2021-09-05] MEDS: PANTOPRAZOLE 40 MG/10 ML VIAL IVP SCH (09:23)
[2021-09-05] MEDS: ASCORBIC ACID 500 MG TAB PO SCH (09:23)
[2021-09-05] MEDS: APIXABAN 5 MG TAB PO SCH ×2 (09:23→20:00)
[2021-09-05] MEDS: ZINC SULFATE 220 MG CAP PO SCH (09:23)
[2021-09-05] MEDS: CHOLECALCIFEROL 25 MCG (1000 IU) TABLET PO SCH (09:23)
[2021-09-05 11:48] LABS: Glucose,Whole Blood 151 mg/dL (75-99)
[2021-09-05] MEDS: CISATRACURIUM 200 MG in SODIUM CHLORIDE 0.9% 180 ML IV SCH (14:29)
[2021-09-05] MEDS: DILTIAZEM 125 MG in SODIUM CHLORIDE 0.9% 100 ML IV SCH (14:35)
--- NOTE | 2021-09-05 16:23 | P.PN ---
Subjective Progress Note Date: 09/05/21 This 76-year-old gentleman is admitted to hospital with [place] pneumonia and hypoxia requiring intubation and respiratory support. We're asked to see the patient because of recurrent atrial fibrillation. Patient was initially initiated on amiodarone with conversion to sinus rhythm. He was switched to by mouth amiodarone, but subsequently went back into atrial fibrillation. He was restarted on amiodarone drip and also Cardizem drip. He still has severe hypoxia. His echo showed an ejection fraction of 4045%. There is some suggestion that could be component of CHF. Patient has been hypotensive and septic. He is on nor epinephrine. We'll continue his amiodarone drip per overnight. If stable, will switch to by mouth amiodarone tomorrow. Overall his prognosis is guarded Objective - Vital Signs Vital signs: Vital Signs Temp 98.7 F 09/05/21 12:00 Pulse 112 H 09/05/21 14:00 Resp 30 H 09/05/21 14:00 BP 121/72 09/05/21 14:00 Pulse Ox 85 L 09/05/21 14:00 Intake & Output 09/04/21 09/05/21 09/05/21 18:59 06:59 18:59 Intake Total 1140.927 715.932 0599.417 Output Total 420 475 360 Balance 720.927 058.620 5217.417 Weight 104.1 kg 104.9 kg Intake: IV 430 220 158 .9 220 158 Sodium Chloride 0.9% 1, 430 000 ml @ 75 mls/hr IV . [id number] [facility] Rx#:[id number] Intake, IV Titration 530.927 282.313 4363.417 Amount Cefepime 2 gm In Sodium 100 Chloride 0.9% 100 ml @ 25 mls/hr IVPB Q12HR [facility] Rx #:[id number] Cisatracurium 200 mg In 134.267 103.358 0 Sodium Chloride 0.9% 180 ml @ 2 MCG/KG/MIN 12.372 mls/hr IV .[id number] [facility] Rx #:[id number] Diltiazem 125 mg In 84.25 Sodium Chloride 0.9% 100 ml @ Per Protocol IV .Q0M [facility] Rx#:[id number] Norepinephrine 32 mg In 96.66 50.929 39.405 Sodium Chloride 0.9% 218 ml @ 0.05 MCG/KG/MIN 2. 416 mls/hr IV .Q24H [facility] Rx#:[id number] Sodium Chloride 0.9% 1, 1000 000 ml @ 999 mls/hr IV . Q1H1M [facility] Rx#:[id number] propofoL 1,000 mg In 300 379.428 295.762 Empty Bag 1 bag @ Titrate IV .Q0M [facility] Rx#: [id number] Tube Feeding 180 120 45 Other 60 Output: Urine 420 475 360 Other: Voiding Method Indwelling Catheter Indwelling Catheter Indwelling Catheter ABP, PAP, CO, CI - Last Documented Arterial Blood Pressure 107/54 - Exam Patient is not personally examined. Information is gathered from consult and notes. For further information could be gathered from [employer] consultant notes - Labs CBC & Chem 7: 09/05/21 05:44 09/05/21 05:44 Labs: Abnormal Lab Results - Last 24 Hours (Table) 09/04/21 09/05/21 09/05/21 Range/Units 17:33 00:36 05:44 WBC (3.8-10.6) k/uL Neutrophils # (1.3-7.7) k/uL Lymphocytes # (1.0-4.8) k/uL Monocytes # (0-1.0) k/uL ABG pH (7.35-7.45) ABG pCO2 (35-45) mmHg ABG pO2 (83-108) mmHg ABG Total CO2 (19-24) mmol/L ABG O2 Saturation (94-97) % Sodium 130 L (137-145) mmol/L Carbon Dioxide 21 L (22-30) mmol/L BUN 47 H (9-20) mg/dL Creatinine 1.53 H (0.66-1.25) mg/dL Glucose 166 H (74-99) mg/dL POC Glucose (mg/dL) 161 H 171 H (75-99) mg/dL Total Protein 5.5 L (6.3-8.2) g/dL Albumin 2.6 L (3.5-5.0) g/dL 09/05/21 09/05/21 09/05/21 Range/Units 05:44 05:48 08:05 WBC 31.7 H (3.8-10.6) k/uL Neutrophils # 29.9 H (1.3-7.7) k/uL Lymphocytes # 0.1 L (1.0-4.8) k/uL Monocytes # 1.1 H (0-1.0) k/uL ABG pH 7.24 L (7.35-7.45) ABG pCO2 54 H (35-45) mmHg ABG pO2 59 L* (83-108) mmHg ABG Total CO2 25 H (19-24) mmol/L ABG O2 Saturation 89.0 L (94-97) % Sodium (137-145) mmol/L Carbon Dioxide (22-30) mmol/L BUN (9-20) mg/dL Creatinine (0.66-1.25) mg/dL Glucose (74-99) mg/dL POC Glucose (mg/dL) 156 H (75-99) mg/dL Total Protein (6.3-8.2) g/dL Albumin (3.5-5.0) g/dL 09/05/21 Range/Units 11:47 WBC (3.8-10.6) k/uL Neutrophils # (1.3-7.7) k/uL Lymphocytes # (1.0-4.8) k/uL Monocytes # (0-1.0) k/uL ABG pH (7.35-7.45) ABG pCO2 (35-45) mmHg ABG pO2 (83-108) mmHg ABG Total CO2 (19-24) mmol/L ABG O2 Saturation (94-97) % Sodium (137-145) mmol/L Carbon Dioxide (22-30) mmol/L BUN (9-20) mg/dL Creatinine (0.66-1.25) mg/dL Glucose (74-99) mg/dL POC Glucose (mg/dL) 151 H (75-99) mg/dL Total Protein (6.3-8.2) g/dL Albumin (3.5-5.0) g/dL Assessment and Plan (1) Acute respiratory failure due to COVID-19 Current Visit: Yes Status: Acute Code(s): U07.1 - COVID-19; J96.00 - ACUTE RESPIRATORY FAILURE, UNSP W HYPOXIA OR HYPERCAPNIA SNOMED Code(s): 883869934 (2) Hyponatremia Current Visit: Yes Status: Acute Code(s): E87.1 - HYPO-OSMOLALITY AND HYPONATREMIA SNOMED Code(s): 49394462 (3) Acute exacerbation of chronic obstructive airways disease Current Visit: No Status: Acute Code(s): J44.1 - CHRONIC OBSTRUCTIVE PULMONARY DISEASE W (ACUTE) EXACERBATION SNOMED Code(s): 372555141 (4) Diaphragmatic hernia Current Visit: No Status: Acute Code(s): K44.9 - DIAPHRAGMATIC HERNIA WITHOUT OBSTRUCTION OR GANGRENE SNOMED Code(s): 32216001 (5) Paroxysmal atrial fibrillation Current Visit: No Status: Acute Code(s): I48.0 - PAROXYSMAL ATRIAL FIBRILLATION SNOMED Code(s): 418833112 Plan: We will continue IV amiodarone for tonight along with IV Cardizem. Tomorrow, we'll may switch to by mouth amiodarone and be able to discontinue Cardizem, in light of his LV dysfunction. Rest of the management as per pulmonary. Prognosis is guarded
[2021-09-05 17:02] LABS: Glucose,Whole Blood 174 mg/dL (75-99)
[2021-09-05] MEDS: PRAVASTATIN SODIUM 20 MG TAB PO SCH (20:00)
[2021-09-05 20:47] LABS: ABG Base Excess -4.8 mmol/L; ABG HCO3 23 mmol/L (21-25); ABG Oxygen Saturation 87.3 % (94-97); ABG PCO2 54 mmHg (35-45); ABG PH 7.23 (7.35-7.45); ABG TCO2 24 mmol/L (19-24); Allen Test Performed? Yes
[2021-09-05 20:49] LABS: ABG PO2 55 mmHg (83-108)
--- NOTE | 2021-09-05 22:04 | PN ---
PROGRESS NOTE DATE OF SERVICE: 09/05/2021 REASON FOR FOLLOWUP: Pneumonia. INTERVAL HISTORY: The patient did have a low grade 100.9 last night and afebrile this morning. The patient remains to be intubated on the vent. FiO2 is currently 75%. No significant purulent secretions, diarrhea or any other changes reported by nursing staff. PHYSICAL EXAMINATION: Blood pressure 124/74 with a pulse of , temperature of 98, T-max a 100.8. He is 97% on 75% FiO2. General description is an elderly male intubated on the vent. Respiratory system: Unlabored breathing. Coarse rhonchi bilaterally. Heart S1-S2 regular rate and rhythm. Abdomen soft, no tenderness. Extremities: No edema of the feet. LABS: BUN of 47, creatinine 1.53. Hemoglobin is 41, white count 31.7. Sputum cultures have been pending so far. DIAGNOSTIC IMPRESSION AND PLAN: Patient with acute respiratory failure which is multifactorial in this patient who did have acute COVID-19 pneumonia. Patient subsequently has atrial fibrillation with RVR with worsening of his respiratory status requiring intubation. Did have significant jump in the white count, possibly related to steroids. Underlying secondary bacterial pneumonia not excluded. Cefepime has been added. Sputum culture will be followed. We will check a procalcitonin and monitor clinical course closely. Prognosis is guarded. MMODL / IJN: [id number] /
--- NOTE | 2021-09-06 00:35 | P.PN ---
Subjective Progress Note Date: 09/03/21 Principal diagnosis: Acute Hypoxic Respiratory failure due to COVID Pneumonia 76-year-old pleasant male with known history of COPD with suicidal dysfunction at home given with complaints of shortness of breath cough without any sputum production going on for about one and half week. Patient did did get vaccinated for Covid and found to have Covid 19 pneumonia chest x-ray did not show any significant infiltrate. Patient denied any chest pain abdominal pain, diarrhea or nausea or vomiting. Patient is on Augmentin not sure why he is taking Augmentin as an outpatient. Patient is presently on 5 L of oxygen saturating at 95% and patient was having fevers with temperature of 100.6. Patient is also hyponatremic and is on hydrochlorothiazide at home. Patient was started on Decadron. D-dimer is within normal limits 08/31/2021 Patient is seen and evaluated in follow-up with no acute overnight issues. Patient normally wears 2 L of oxygen as needed at night in the outpatient setting and currently continues on 5 L. Discussed with nursing staff about weaning FiO2 as tolerated. Pulmonary and infectious disease following an patient is maintained on bronchodilators along with vitamin and zinc supplements and has been started on IV dexamethasone and Lovenox subcutaneous injections. Patient continues on gentle IV hydration at 75 ML per hour and will continue for now. Patient was hyponatremic at 125 and today's sodium level is 129. 09/01/2021 Patient is seen in follow-up this morning and overnight developed progressing worsening shortness of breath and currently on 15 L high flow nasal cannula. Nursing staff patient continues to remove oxygen and dropping down into the 70s and 80s oxygen saturation. Patient continues with a cough and rhonchi noted throughout on exam. Sodium level has dropped back down to 125 and will consult nephrology. Patient is extremely hard of hearing. Chest x-ray today shows interstitial and patchy left-sided infiltrates that are mildly progressed. Pulmonary and infectious disease following as well. 09/02/2021 Patient is seen in follow-up this morning with worsening respirations and difficulty in breathing and maintained on 15 L high flow along with nonrebreather and working to breathe with continued cough. Pulmonary and infectious disease following closely and patient started on Baricitinib and maintained on vitamin and zinc supplements along with Lovenox and IV dexamethasone and will continue. Patient being transitioned to Airvo with respiratory following closely as well. Discussed CODE STATUS with the patient and he wishes to remain full code. Nephrology also consulted for hyponatremia and IV fluids have been discontinued and patient is receiving a dose of IV Lasix today. 09/03/2021 Patient is seen in the ICU. Yesterday evening around 6 o'clock patient's condition has deteriorated and rapid response team was called and the patient was in A. fib with RVR and subsequently had worsening difficulty in breathing and required stat intubation with transfer to the ICU. He is currently on a ventilator. ABGs from this morning showing pH of 7.24, PCO2 of 47 and PO2 of 121 on 100% FiO2. Patient's blood pressure running on the lower side and he is on Levophed and amiodarone drip. He is sedated. Patient's medications have been reviewed. Objective - Vital Signs Vital signs: Vital Signs Temp 97.2 F L 09/03/21 08:00 Pulse 92 09/03/21 11:30 Resp 28 H 09/03/21 11:30 BP 103/81 09/03/21 11:30 Pulse Ox 98 09/03/21 11:30 Intake & Output 09/02/21 09/03/21 09/03/21 18:59 06:59 18:59 Intake Total 2035.042 819.877 Output Total 505 175 Balance 1530.042 644.877 Weight 103.1 kg 103.1 kg Intake: IV 675 300 Sodium Chloride 0.9% 1, 675 300 000 ml @ 75 mls/hr IV . [id number] [facility] Rx#:[id number] Intake, IV Titration 1360.042 519.877 Amount Cisatracurium 200 mg In 45.286 Sodium Chloride 0.9% 180 ml @ 2 MCG/KG/MIN 12.372 mls/hr IV .[id number] [facility] Rx #:[id number] Heparin Sod,Pork in 0.45% 54.667 NaCl 25,000 unit In 0.45 % NaCl 1 250ml.bag @ 8. 4793 UNITS/KG/HR 8.742 mls/hr IV .Q24H [facility] Rx#: [id number] Norepinephrine 4 mg In 853.108 448.366 Sodium Chloride 0.9% 250 ml @ 0.05 MCG/KG/MIN 19. 641 mls/hr IV .[id number] [facility] Rx#:[id number] propofoL 1,000 mg In 406.981 71.511 Empty Bag 1 bag @ Titrate IV .Q0M [facility] Rx#: [id number] Output: Urine 505 175 Other: Voiding Method Indwelling Catheter Indwelling Catheter ABP, PAP, CO, CI - Last Documented Arterial Blood Pressure 120/73 - Exam PHYSICAL EXAMINATION: GENERAL: intubated in the ICU HEENT: Pupils are round and equally reacting to light. EOMI. No scleral icterus. No conjunctival pallor. Normocephalic, atraumatic. CARDIOVASCULAR: S1 and S2 present. PULMONARY: Diminished breath sounds with scattered coarse rhonchi noted bilaterally ABDOMEN: Soft, nontender, nondistended, normoactive bowel sounds. No palpable organomegaly. MUSCULOSKELETAL: No joint swelling or deformity. EXTREMITIES: No cyanosis, clubbing, or pedal edema. NEUROLOGICAL: sedated SKIN: No rashes. - Labs CBC & Chem 7: 09/05/21 05:44 09/05/21 05:44 Labs: Abnormal Lab Results - Last 24 Hours (Table) 09/01/21 09/02/21 09/02/21 Range/Units 07:40 17:38 18:26 WBC (3.8-10.6) k/uL Neutrophils # (1.3-7.7) k/uL Lymphocytes # (1.0-4.8) k/uL APTT (22.0-30.0) sec D-Dimer (<0.60) mg/L FEU ABG pH 7.46 H (7.35-7.45) ABG pCO2 32 L (35-45) mmHg ABG pO2 47 L* (83-108) mmHg ABG HCO3 (21-25) mmol/L ABG O2 Saturation 84.2 L (94-97) % Sodium (137-145) mmol/L Carbon Dioxide (22-30) mmol/L BUN (9-20) mg/dL Glucose (74-99) mg/dL POC Glucose (mg/dL) 148 H (75-99) mg/dL Calcium (8.4-10.2) mg/dL Lactate Dehydrogenase 410 H (120-246) U/L Troponin I (0.000-0.034) ng/mL C-Reactive Protein (<1.0) mg/dL Urine Protein (Negative) Urine Blood (Negative) Urine Bacteria (None) /hpf Hyaline Casts (0-2) /lpf Urine Mucus (None) /hpf 09/02/21 09/02/21 09/02/21 Range/Units 19:00 19:32 20:41 WBC (3.8-10.6) k/uL Neutrophils # (1.3-7.7) k/uL Lymphocytes # (1.0-4.8) k/uL APTT (22.0-30.0) sec D-Dimer (<0.60) mg/L FEU ABG pH 7.30 L (7.35-7.45) ABG pCO2 (35-45) mmHg ABG pO2 (83-108) mmHg ABG HCO3 (21-25) mmol/L ABG O2 Saturation 97.2 H (94-97) % Sodium 127 L (137-145) mmol/L Carbon Dioxide 17 L (22-30) mmol/L BUN 26 H (9-20) mg/dL Glucose 212 H (74-99) mg/dL POC Glucose (mg/dL) (75-99) mg/dL Calcium 7.4 L (8.4-10.2) mg/dL Lactate Dehydrogenase (120-246) U/L Troponin I (0.000-0.034) ng/mL C-Reactive Protein (<1.0) mg/dL Urine Protein Trace H (Negative) Urine Blood Small H (Negative) Urine Bacteria Rare H (None) /hpf Hyaline Casts 7 H (0-2) /lpf Urine Mucus Rare H (None) /hpf 09/02/21 09/02/21 09/02/21 Range/Units 20:41 20:41 20:41 WBC 17.7 H (3.8-10.6) k/uL Neutrophils # 16.6 H (1.3-7.7) k/uL Lymphocytes # 0.3 L (1.0-4.8) k/uL APTT (22.0-30.0) sec D-Dimer 0.67 H (<0.60) mg/L FEU ABG pH (7.35-7.45) ABG pCO2 (35-45) mmHg ABG pO2 (83-108) mmHg ABG HCO3 (21-25) mmol/L ABG O2 Saturation (94-97) % Sodium (137-145) mmol/L Carbon Dioxide (22-30) mmol/L BUN (9-20) mg/dL Glucose (74-99) mg/dL POC Glucose (mg/dL) (75-99) mg/dL Calcium (8.4-10.2) mg/dL Lactate Dehydrogenase (120-246) U/L Troponin I 0.241 H* (0.000-0.034) ng/mL C-Reactive Protein (<1.0) mg/dL Urine Protein (Negative) Urine Blood (Negative) Urine Bacteria (None) /hpf Hyaline Casts (0-2) /lpf Urine Mucus (None) /hpf 09/02/21 09/03/21 09/03/21 Range/Units 23:37 04:25 04:25 WBC 17.8 H (3.8-10.6) k/uL Neutrophils # 16.7 H (1.3-7.7) k/uL Lymphocytes # 0.2 L (1.0-4.8) k/uL APTT (22.0-30.0) sec D-Dimer (<0.60) mg/L FEU ABG pH (7.35-7.45) ABG pCO2 (35-45) mmHg ABG pO2 (83-108) mmHg ABG HCO3 (21-25) mmol/L ABG O2 Saturation (94-97) % Sodium 127 L (137-145) mmol/L Carbon Dioxide 18 L (22-30) mmol/L BUN 29 H (9-20) mg/dL Glucose 196 H (74-99) mg/dL POC Glucose (mg/dL) 202 H (75-99) mg/dL Calcium 7.4 L (8.4-10.2) mg/dL Lactate Dehydrogenase 1179 H (120-246) U/L Troponin I (0.000-0.034) ng/mL C-Reactive Protein 20.1 H (<1.0) mg/dL Urine Protein (Negative) Urine Blood (Negative) Urine Bacteria (None) /hpf Hyaline Casts (0-2) /lpf Urine Mucus (None) /hpf 09/03/21 09/03/21 09/03/21 Range/Units 04:25 06:12 08:12 WBC (3.8-10.6) k/uL Neutrophils # (1.3-7.7) k/uL Lymphocytes # (1.0-4.8) k/uL APTT 31.8 H (22.0-30.0) sec D-Dimer (<0.60) mg/L FEU ABG pH 7.24 L (7.35-7.45) ABG pCO2 47 H (35-45) mmHg ABG pO2 121 H (83-108) mmHg ABG HCO3 20 L (21-25) mmol/L ABG O2 Saturation 98.7 H (94-97) % Sodium (137-145) mmol/L Carbon Dioxide (22-30) mmol/L BUN (9-20) mg/dL Glucose (74-99) mg/dL POC Glucose (mg/dL) 176 H (75-99) mg/dL Calcium (8.4-10.2) mg/dL Lactate Dehydrogenase (120-246) U/L Troponin I (0.000-0.034) ng/mL C-Reactive Protein (<1.0) mg/dL Urine Protein (Negative) Urine Blood (Negative) Urine Bacteria (None) /hpf Hyaline Casts (0-2) /lpf Urine Mucus (None) /hpf Assessment and Plan Assessment: Assessment Acute on chronic hypoxic respiratory failure secondary to COVID-19 pneumonia -Covid 19 pneumonia: -Hypoxic respiratory failure secondary to above -Hyponatremia -A fib with RVR -Chronic hypercapnic respiratory failure secondary to COPD -Hypertension -Hyperlipidemia -Benign prostatic hypertrophy -DVT prophylaxis: Lovenox -GI prophylaxis -Full code PLAN Patient to be continued on mechanical ventilation Patient is on Lovenox, Decadron, multivitamin his baricitinib has been discontinued Daily chest x-rays and ABGs Patient had left IJ catheter placed today by Dr. William Overall prognosis remains guarded Further recommendations depending on the progress of the patient
[2021-09-06 00:40] LABS: Glucose,Whole Blood 161 mg/dL (75-99)
--- NOTE | 2021-09-06 00:40 | P.PN ---
Subjective Progress Note Date: 09/04/21 Principal diagnosis: Acute Hypoxic Respiratory failure due to COVID Pneumonia 76-year-old pleasant male with known history of COPD with suicidal dysfunction at home given with complaints of shortness of breath cough without any sputum production going on for about one and half week. Patient did did get vaccinated for Covid and found to have Covid 19 pneumonia chest x-ray did not show any significant infiltrate. Patient denied any chest pain abdominal pain, diarrhea or nausea or vomiting. Patient is on Augmentin not sure why he is taking Augmentin as an outpatient. Patient is presently on 5 L of oxygen saturating at 95% and patient was having fevers with temperature of 100.6. Patient is also hyponatremic and is on hydrochlorothiazide at home. Patient was started on Decadron. D-dimer is within normal limits 08/31/2021 Patient is seen and evaluated in follow-up with no acute overnight issues. Patient normally wears 2 L of oxygen as needed at night in the outpatient setting and currently continues on 5 L. Discussed with nursing staff about weaning FiO2 as tolerated. Pulmonary and infectious disease following an patient is maintained on bronchodilators along with vitamin and zinc supplements and has been started on IV dexamethasone and Lovenox subcutaneous injections. Patient continues on gentle IV hydration at 75 ML per hour and will continue for now. Patient was hyponatremic at 125 and today's sodium level is 129. 09/01/2021 Patient is seen in follow-up this morning and overnight developed progressing worsening shortness of breath and currently on 15 L high flow nasal cannula. Nursing staff patient continues to remove oxygen and dropping down into the 70s and 80s oxygen saturation. Patient continues with a cough and rhonchi noted throughout on exam. Sodium level has dropped back down to 125 and will consult nephrology. Patient is extremely hard of hearing. Chest x-ray today shows interstitial and patchy left-sided infiltrates that are mildly progressed. Pulmonary and infectious disease following as well. 09/02/2021 Patient is seen in follow-up this morning with worsening respirations and difficulty in breathing and maintained on 15 L high flow along with nonrebreather and working to breathe with continued cough. Pulmonary and infectious disease following closely and patient started on Baricitinib and maintained on vitamin and zinc supplements along with Lovenox and IV dexamethasone and will continue. Patient being transitioned to Airvo with respiratory following closely as well. Discussed CODE STATUS with the patient and he wishes to remain full code. Nephrology also consulted for hyponatremia and IV fluids have been discontinued and patient is receiving a dose of IV Lasix today. 09/03/2021 Patient is seen in the ICU. Yesterday evening around 6 o'clock patient's condition has deteriorated and rapid response team was called and the patient was in A. fib with RVR and subsequently had worsening difficulty in breathing and required stat intubation with transfer to the ICU. He is currently on a ventilator. ABGs from this morning showing pH of 7.24, PCO2 of 47 and PO2 of 121 on 100% FiO2. Patient's blood pressure running on the lower side and he is on Levophed and amiodarone drip. He is sedated. 09/04/2021 Patient is seen and examined in the ICU. Patient continues to be on mechanical ventilator requiring 65% FiO2 with a PEEP of 15 saturating at low 90s. Patient continues to be on Levophed, to maintain a map of about 65. Lovenox has been discontinued and patient is started on Eliquis for anticoagulation in view of his atrial fibrillation. Objective - Vital Signs Vital signs: Vital Signs Temp 98 F 09/04/21 08:00 Pulse 122 H 09/04/21 10:00 Resp 28 H 09/04/21 10:00 BP 102/72 09/04/21 10:00 Pulse Ox 92 L 09/04/21 10:00 Intake & Output 09/03/21 09/04/21 09/04/21 19:59 06:59 18:59 Intake Total 280 Output Total 130 Balance 150 Weight Intake: IV 180 Sodium Chloride 0.9% 1, 180 000 ml @ 75 mls/hr IV . [id number] [facility] Rx#:[id number] Intake, IV Titration 100 Amount Amiodarone 450 mg In Dextrose 5% in Water 250 ml @ 0.5 MG/MIN 16.667 mls/hr IV .Q15H [facility] Rx#: [id number] Heparin Sod,Pork in 0.45% NaCl 25,000 unit In 0.45 % NaCl 1 250ml.bag @ 8. 4793 UNITS/KG/HR 8.742 mls/hr IV .Q24H [facility] Rx#: [id number] Norepinephrine 32 mg In Sodium Chloride 0.9% 218 ml @ 0.05 MCG/KG/MIN 2. 416 mls/hr IV .Q24H [facility] Rx#:[id number] Norepinephrine 4 mg In Sodium Chloride 0.9% 250 ml @ 0.05 MCG/KG/MIN 19. 641 mls/hr IV .[id number] [facility] Rx#:[id number] propofoL 1,000 mg In 100 Empty Bag 1 bag @ Titrate IV .Q0M [facility] Rx#: [id number] Tube Feeding Other Output: Urine 130 Other: Voiding Method Indwelling Catheter ABP, PAP, CO, CI - Last Documented Arterial Blood Pressure 109/59 - Exam PHYSICAL EXAMINATION: GENERAL: intubated in the ICU HEENT: Pupils are round and equally reacting to light. EOMI. No scleral icterus. No conjunctival pallor. OG tube in place. CARDIOVASCULAR: S1 and S2 present. PULMONARY: Diminished breath sounds with scattered coarse rhonchi noted bilaterally ABDOMEN: Soft, nontender, nondistended, normoactive bowel sounds. No palpable organomegaly. MUSCULOSKELETAL: No joint swelling or deformity. EXTREMITIES: No cyanosis, clubbing, or pedal edema. NEUROLOGICAL: sedated SKIN: No rashes. - Labs CBC & Chem 7: 09/05/21 05:44 09/05/21 05:44 Labs: Abnormal Lab Results - Last 24 Hours (Table) 09/03/21 09/03/21 09/03/21 Range/Units 04:25 11:00 13:04 WBC (3.8-10.6) k/uL Neutrophils # (1.3-7.7) k/uL Lymphocytes # (1.0-4.8) k/uL APTT >200.0 H* (22.0-30.0) sec ABG pH (7.35-7.45) ABG pCO2 (35-45) mmHg ABG O2 Saturation (94-97) % Sodium (137-145) mmol/L Carbon Dioxide (22-30) mmol/L BUN (9-20) mg/dL Creatinine (0.66-1.25) mg/dL Glucose (74-99) mg/dL POC Glucose (mg/dL) 169 H (75-99) mg/dL Hemoglobin A1c 6.1 H (4.0-6.0) % Calcium (8.4-10.2) mg/dL 09/03/21 09/03/21 09/04/21 Range/Units 17:38 23:28 04:53 WBC (3.8-10.6) k/uL Neutrophils # (1.3-7.7) k/uL Lymphocytes # (1.0-4.8) k/uL APTT (22.0-30.0) sec ABG pH (7.35-7.45) ABG pCO2 (35-45) mmHg ABG O2 Saturation (94-97) % Sodium (137-145) mmol/L Carbon Dioxide (22-30) mmol/L BUN (9-20) mg/dL Creatinine (0.66-1.25) mg/dL Glucose (74-99) mg/dL POC Glucose (mg/dL) 165 H 166 H 161 H (75-99) mg/dL Hemoglobin A1c (4.0-6.0) % Calcium (8.4-10.2) mg/dL 09/04/21 09/04/21 09/04/21 Range/Units 04:55 04:55 07:09 WBC 13.3 H (3.8-10.6) k/uL Neutrophils # 12.1 H (1.3-7.7) k/uL Lymphocytes # 0.2 L (1.0-4.8) k/uL APTT (22.0-30.0) sec ABG pH 7.27 L (7.35-7.45) ABG pCO2 47 H (35-45) mmHg ABG O2 Saturation 98.1 H (94-97) % Sodium 130 L (137-145) mmol/L Carbon Dioxide 20 L (22-30) mmol/L BUN 35 H (9-20) mg/dL Creatinine 1.26 H (0.66-1.25) mg/dL Glucose 167 H (74-99) mg/dL POC Glucose (mg/dL) (75-99) mg/dL Hemoglobin A1c (4.0-6.0) % Calcium 8.0 L (8.4-10.2) mg/dL Microbiology - Last 24 Hours (Table) 09/03/21 01:22 Gram Stain - Preliminary Sputum Sputum Culture - Preliminary Assessment and Plan Assessment: Assessment Acute on chronic hypoxic respiratory failure secondary to COVID-19 pneumonia -Covid 19 pneumonia: -Hypoxic respiratory failure secondary to above -Hyponatremia -A fib with RVR -Chronic hypercapnic respiratory failure secondary to COPD -Hypertension -Hyperlipidemia -Benign prostatic hypertrophy -DVT prophylaxis: Lovenox -GI prophylaxis -Full code PLAN Patient to be continued on mechanical ventilation He is still requiring pressor support Patient is on Decadron, multivitamin his baricitinib has been discontinued Daily chest x-rays and ABGs Eliquis for anti coagulation Overall prognosis remains guarded Further recommendations depending on the progress of the patient
[2021-09-06] MEDS: ARTIFICIAL TEARS-HYPROMELLOSE DROPS 15 ML BTL BOTH EYES SCH ×6 (00:43→20:59)
[2021-09-06] MEDS: INSULIN ASPART (NovoLOG) 100 UNIT/ML VIAL SQ SCH ×4 (00:43→18:35)
--- NOTE | 2021-09-06 00:49 | P.PN ---
Subjective Progress Note Date: 09/05/21 Principal diagnosis: Acute Hypoxic Respiratory failure due to COVID Pneumonia 76-year-old pleasant male with known history of COPD with suicidal dysfunction at home given with complaints of shortness of breath cough without any sputum production going on for about one and half week. Patient did did get vaccinated for Covid and found to have Covid 19 pneumonia chest x-ray did not show any significant infiltrate. Patient denied any chest pain abdominal pain, diarrhea or nausea or vomiting. Patient is on Augmentin not sure why he is taking Augmentin as an outpatient. Patient is presently on 5 L of oxygen saturating at 95% and patient was having fevers with temperature of 100.6. Patient is also hyponatremic and is on hydrochlorothiazide at home. Patient was started on Decadron. D-dimer is within normal limits 08/31/2021 Patient is seen and evaluated in follow-up with no acute overnight issues. Patient normally wears 2 L of oxygen as needed at night in the outpatient setting and currently continues on 5 L. Discussed with nursing staff about weaning FiO2 as tolerated. Pulmonary and infectious disease following an patient is maintained on bronchodilators along with vitamin and zinc supplements and has been started on IV dexamethasone and Lovenox subcutaneous injections. Patient continues on gentle IV hydration at 75 ML per hour and will continue for now. Patient was hyponatremic at 125 and today's sodium level is 129. 09/01/2021 Patient is seen in follow-up this morning and overnight developed progressing worsening shortness of breath and currently on 15 L high flow nasal cannula. Nursing staff patient continues to remove oxygen and dropping down into the 70s and 80s oxygen saturation. Patient continues with a cough and rhonchi noted throughout on exam. Sodium level has dropped back down to 125 and will consult nephrology. Patient is extremely hard of hearing. Chest x-ray today shows interstitial and patchy left-sided infiltrates that are mildly progressed. Pulmonary and infectious disease following as well. 09/02/2021 Patient is seen in follow-up this morning with worsening respirations and difficulty in breathing and maintained on 15 L high flow along with nonrebreather and working to breathe with continued cough. Pulmonary and infectious disease following closely and patient started on Baricitinib and maintained on vitamin and zinc supplements along with Lovenox and IV dexamethasone and will continue. Patient being transitioned to Airvo with respiratory following closely as well. Discussed CODE STATUS with the patient and he wishes to remain full code. Nephrology also consulted for hyponatremia and IV fluids have been discontinued and patient is receiving a dose of IV Lasix today. 09/03/2021 Patient is seen in the ICU. Yesterday evening around 6 o'clock patient's condition has deteriorated and rapid response team was called and the patient was in A. fib with RVR and subsequently had worsening difficulty in breathing and required stat intubation with transfer to the ICU. He is currently on a ventilator. ABGs from this morning showing pH of 7.24, PCO2 of 47 and PO2 of 121 on 100% FiO2. Patient's blood pressure running on the lower side and he is on Levophed and amiodarone drip. He is sedated. 09/04/2021 Patient is seen and examined in the ICU. Patient continues to be on mechanical ventilator requiring 65% FiO2 with a PEEP of 15 saturating at low 90s. Patient continues to be on Levophed, to maintain a map of about 65. Lovenox has been discontinued and patient is started on Eliquis for anticoagulation in view of his atrial fibrillation. On 09/05/2021 Patient is seen and examined in the ICU. Patient is intubated and mechanically ventilated. Patient has been in and out of atrial fibrillation, currently A. fib with rapid RVR. He is being maintained on Cardizem drip and he is on Eliquis for anticoagulation. On reviewing the vitals blood pressure 109 x 72. Reviewed ABGs from this morning showing pH of 7.24, PCO2 54, PO2 of 59. He is on 65% FiO2 with PEEP of 15 saturating around 90%. On reviewing his labs from this morning white count of 13.1, hemoglobin 14.9, platelets 311. Sodium 130, potassium 4.9, chloride 103, bicarb 21, BUN 47, creatinine 1.53. Patient's medications have been reviewed Objective - Vital Signs Vital signs: Vital Signs Temp 98.8 F 09/05/21 08:00 Pulse 115 H 09/05/21 11:00 Resp 28 H 09/05/21 11:00 BP 114/75 09/05/21 10:30 Pulse Ox 87 L 09/05/21 11:00 Intake & Output 09/04/21 09/05/21 09/05/21 18:59 06:59 18:59 Intake Total 1140.927 558.981 9480.167 Output Total 420 475 240 Balance 720.927 462.361 8998.167 Weight 104.1 kg 104.9 kg Intake: IV 430 220 100 .9 220 100 Sodium Chloride 0.9% 1, 430 000 ml @ 75 mls/hr IV . [id number] [facility] Rx#:[id number] Intake, IV Titration 530.927 834.100 2597.167 Amount Cefepime 2 gm In Sodium 100 Chloride 0.9% 100 ml @ 25 mls/hr IVPB Q12HR [facility] Rx #:[id number] Cisatracurium 200 mg In 134.267 103.358 0 Sodium Chloride 0.9% 180 ml @ 2 MCG/KG/MIN 12.372 mls/hr IV .[id number] [facility] Rx #:[id number] Norepinephrine 32 mg In 96.66 50.929 39.405 Sodium Chloride 0.9% 218 ml @ 0.05 MCG/KG/MIN 2. 416 mls/hr IV .Q24H [facility] Rx#:[id number] Sodium Chloride 0.9% 1, 1000 000 ml @ 999 mls/hr IV . Q1H1M [facility] Rx#:[id number] propofoL 1,000 mg In 300 379.428 95.762 Empty Bag 1 bag @ Titrate IV .Q0M [facility] Rx#: [id number] Tube Feeding 180 120 30 Other 60 Output: Urine 420 475 240 Other: Voiding Method Indwelling Catheter Indwelling Catheter Indwelling Catheter ABP, PAP, CO, CI - Last Documented Arterial Blood Pressure 188/80 - Exam PHYSICAL EXAMINATION: GENERAL: intubated in the ICU HEENT: Pupils are round and equally reacting to light. EOMI. No scleral icterus. No conjunctival pallor. OG tube in place. CARDIOVASCULAR: S1 and S2 present. PULMONARY: Diminished breath sounds with scattered coarse rhonchi noted bilaterally ABDOMEN: Soft, nontender, nondistended, normoactive bowel sounds. No palpable organomegaly. MUSCULOSKELETAL: No joint swelling or deformity. EXTREMITIES: No cyanosis, clubbing, or pedal edema. NEUROLOGICAL: sedated SKIN: No rashes. - Labs CBC & Chem 7: 09/05/21 05:44 09/05/21 05:44 Labs: Abnormal Lab Results - Last 24 Hours (Table) 09/04/21 09/04/21 09/05/21 Range/Units 11:36 17:33 00:36 WBC (3.8-10.6) k/uL Neutrophils # (1.3-7.7) k/uL Lymphocytes # (1.0-4.8) k/uL Monocytes # (0-1.0) k/uL ABG pH (7.35-7.45) ABG pCO2 (35-45) mmHg ABG pO2 (83-108) mmHg ABG Total CO2 (19-24) mmol/L ABG O2 Saturation (94-97) % Sodium (137-145) mmol/L Carbon Dioxide (22-30) mmol/L BUN (9-20) mg/dL Creatinine (0.66-1.25) mg/dL Glucose (74-99) mg/dL POC Glucose (mg/dL) 148 H 161 H 171 H (75-99) mg/dL Total Protein (6.3-8.2) g/dL Albumin (3.5-5.0) g/dL 09/05/21 09/05/21 09/05/21 Range/Units 05:44 05:44 05:48 WBC 31.7 H (3.8-10.6) k/uL Neutrophils # 29.9 H (1.3-7.7) k/uL Lymphocytes # 0.1 L (1.0-4.8) k/uL Monocytes # 1.1 H (0-1.0) k/uL ABG pH (7.35-7.45) ABG pCO2 (35-45) mmHg ABG pO2 (83-108) mmHg ABG Total CO2 (19-24) mmol/L ABG O2 Saturation (94-97) % Sodium 130 L (137-145) mmol/L Carbon Dioxide 21 L (22-30) mmol/L BUN 47 H (9-20) mg/dL Creatinine 1.53 H (0.66-1.25) mg/dL Glucose 166 H (74-99) mg/dL POC Glucose (mg/dL) 156 H (75-99) mg/dL Total Protein 5.5 L (6.3-8.2) g/dL Albumin 2.6 L (3.5-5.0) g/dL 09/05/21 Range/Units 08:05 WBC (3.8-10.6) k/uL Neutrophils # (1.3-7.7) k/uL Lymphocytes # (1.0-4.8) k/uL Monocytes # (0-1.0) k/uL ABG pH 7.24 L (7.35-7.45) ABG pCO2 54 H (35-45) mmHg ABG pO2 59 L* (83-108) mmHg ABG Total CO2 25 H (19-24) mmol/L ABG O2 Saturation 89.0 L (94-97) % Sodium (137-145) mmol/L Carbon Dioxide (22-30) mmol/L BUN (9-20) mg/dL Creatinine (0.66-1.25) mg/dL Glucose (74-99) mg/dL POC Glucose (mg/dL) (75-99) mg/dL Total Protein (6.3-8.2) g/dL Albumin (3.5-5.0) g/dL Microbiology - Last 24 Hours (Table) 09/03/21 01:22 Gram Stain - Preliminary Sputum Sputum Culture - Preliminary Assessment and Plan Assessment: Assessment Acute on chronic hypoxic respiratory failure secondary to COVID-19 pneumonia -Covid 19 pneumonia Leukocytosis -Hypoxic respiratory failure secondary to above -Hyponatremia AARTI with oliguria -A fib with RVR -Chronic hypercapnic respiratory failure secondary to COPD -Hypertension -Hyperlipidemia -Benign prostatic hypertrophy -DVT prophylaxis: Lovenox -GI prophylaxis -Full code PLAN Patient to be continued on mechanical ventilation Patient's white count has been elevated today so blood cultures and sputum cultures ordered Patient has been started on cefepime, there is worsening of his acute kidney injury, patient being oliguric, nephrology on board following the patient Patient is on Decadron, multivitamin Daily chest x-rays and ABGs Eliquis for anti coagulation Overall prognosis remains guarded and he condition has been worsening for the past couple of days Multiple Consultants including pulmonary, ID, nephrology, cardiology on board and following the patient closely. Further recommendations depending on the progress of the patient
[2021-09-06 04:57] LABS: Glucose,Whole Blood 158 mg/dL (75-99)
[2021-09-06 05:41] LABS: Albumin 2.4 g/dL (3.5-5.0); Potassium 5.3 mmol/L (3.5-5.1); Total Bilirubin 0.6 mg/dL (0.2-1.3); Total Protein 5.1 g/dL (6.3-8.2)
[2021-09-06] MEDS: CISATRACURIUM 200 MG in SODIUM CHLORIDE 0.9% 180 ML IV SCH (05:51)
[2021-09-06 05:57] LABS: ABG Base Excess -5.6 mmol/L; ABG HCO3 22 mmol/L (21-25); ABG Oxygen Saturation 88.3 % (94-97); ABG PCO2 55 mmHg (35-45); ABG PH 7.21 (7.35-7.45); ABG TCO2 24 mmol/L (19-24); Allen Test Performed? Yes
[2021-09-06 05:59] LABS: ABG PO2 58 mmHg (83-108)
[2021-09-06 06:05] LABS: HCT 43.7 % (39.0-53.0); HGB 14.3 gm/dL (13.0-17.5); MCH 31.7 pg (25.0-35.0); MCHC 32.7 g/dL (31.0-37.0); MCV 96.9 fL (80.0-100.0); Mean Platelet Volume 8.1; Platelet Count 325 k/uL (150-450); RBC 4.51 m/uL (4.30-5.90); RDW 13.7 % (11.5-15.5)
[2021-09-06 06:16] LABS: C Reactive Protein 37.4 mg/dL (<1.0)
[2021-09-06 06:44] LABS: Band Neutrophils % 16 %; Lymphocytes # (M) 0.25 k/uL (1.0-4.8); Metamyelocytes # (M) 0.25 k/uL (0); Metamyelocytes % 1 %; Monocytes # (M) 0.99 k/uL (0-1.0); Neutrophils % (M) 78 %; Nucleated Red Blood Cells 1 /100 WBC (0-0); Total Cells Counted 100; WBC 24.7 k/uL (3.8-10.6)
[2021-09-06] MEDS ORDERED: FUROSEMIDE 10 MG/ML 10 ML VIAL IV STA (07:04)
--- NOTE | 2021-09-06 07:04 | P.PN ---
Subjective Progress Note Date: 09/06/21 76-year-old male, who presents to the emergency department, on August 30. The patient has a history of atrial fibrillation, hyperlipidemia, hypertension, and COPD, history of lung herniation, and that he was home O2, at 2 L as needed. The patient presents to the emergency department with complaints of increasing shortness of breath, and cough and the patient became progressively more hypoxic requiring high levels of oxygen initially went on high flow oxygen and ultimately the patient was intubated and placed on a mechanical ventilator as of 09/02/2001. The patient remains on a mechanical ventilator on assist control mode with a tidal volume of 500, FiO2 of 65%, PEEP of 15 and the rate of 28. The peak airway pressure is 33. Static pressures 27. At this point in time, the patient is intubated, sedated currently on propofol running at 60 g per program per minute, paralyzed with Nimbex at 1 mcg/kg per minute and the patient is on a NSS rate of 20 mL an hour. The patient is also hypotensive, currently on pressors and norepinephrine infusion is running at the rate of 0.16 g per /kg/ minute. The patient remains in atrial fibrillation. The patient was quite tachycardic with underlying atrial fibrillation. The patient is currently on amiodarone drip running at 0.5 micrograms per kilogram per minute and the patient is also on Cardizem drip at 5 mg an hour. His current heart rate is in order of 125 beats per minute, irregular. The chest x-ray showing diffuse bilateral pulmonary infiltrates more so in the lower lobes bilaterally. Orotracheal tube is in a good location. The patient has a left internal jugular triple-lumen catheter in place. Orogastric tube is also in place. He does have evidence of lung herniation on the left. The patient was started on enteral feeding for nutritional support and the patient is receiving vital AF at the rate of 15 mL an hour. The patient is currently on Decadron 6 mg IV every 24 hours. The patient is on long-term and correlation with Eliquis 5 mg by mouth twice a day. Blood work from today shows a sodium level of 1:30. This is improved compared to yesterday. The patient is developing acute kidney injury. Creatinine is up to 1.5 from a baseline of 1.06 and creatinine is up to 47. In terms of his inflammatory markers, LDH from 09/03/2021 was 1179 with a CRP of 20. His white cell count is up to 31.7. The patient is afebrile. Nevertheless, based on his underlying hypotension and new onset leukocytosis, a super infection is highly considered in this patient. His most recent pro- calcitonin level is 0.1 and this is from 08/30/2021 and this is to be repeated. The patient is not receiving any form of antibiotic coverage at this point in time. On today's evaluation of 09/06/2021, the patient is being seen for a follow-up. As of yesterday, I took the patient off paralytics and the patient is currently on propofol running at 70 mg/kg per minute. Is adequately sedated for now and his symptoms of the mechanical ventilator. He remains on the respirator with an assist-control mode at the rate of 28 and a tidal volume of 500 and FiO2 of 85% and a PEEP of 15. Peak airway pressure 31. Static pressure is 30. The chest x-ray showing diffuse bilateral pulmonary infiltrates consistent with coronary ventilated pneumonia. At the same time, orotracheal tube is in a good location. OG tube is also adequate location. No evidence of any subcutaneous emphysema. There is increased consolidation in the right lung base and the patient has a left IJ triple-lumen catheter in place. He remains on pressors and the patient is currently on norepinephrine running at 0.22 mcg/kg per minute. Yesterday, was concerned of a super infection. Cultures were sent and the patient was started on IV cefepime. He remains afebrile. White cell count is down to 24 which is improved compared to yesterday. His blood gases from today showing a pH of 7.21 with a pCO2 of 55 and pO2 of 58. He is currently on IV cefepime. Pending further blood cultures. Meanwhile, there is been some interval worsening his renal function. Creatinine is up to 1.9 with a BUN of 64. Sodium level is at 129. Overall fluid balance is in the order of 1.1 L positive over the past 24 hours. Not urine output was in the order of 900 mL since yesterday. The patient is receiving enteral feeding for nutritional support. He is on vital AF at the rate of 15 mL an hour. His white cell count is down to 24. Hemoglobin stable at 14. Sodium level is at 129. Serum bicarbs at 20. LDH level is down to 794 with a CRP of 37.4. He remains on Eliquis regarding his ongoing nature fibrillation. In terms of his A. fib, rate is under better control. He is on amiodarone running at 0.5 mg per minute and Cardizem drip running at 5 mg an hour. Otherwise, no other significant events. Condition remains quite critical at this point in time. Objective - Vital Signs Vital signs: Vital Signs Temp 99.1 F 09/06/21 04:00 Pulse 113 H 09/06/21 06:00 Resp 29 H 09/06/21 06:00 BP 136/71 09/06/21 06:00 Pulse Ox 85 L 09/06/21 06:00 Intake & Output 09/05/21 09/05/21 09/06/21 06:59 18:59 06:59 Intake Total 113.066 5694.755 1065.540 Output Total 475 660 440 Balance 895.156 6557.755 625.540 Weight 104.9 kg 106.4 kg Intake: IV 220 1296 220 .9 220 296 220 bolus 1000 Intake, IV Titration 897.907 0370.755 635.540 Amount Cefepime 2 gm In Sodium 100 Chloride 0.9% 100 ml @ 25 mls/hr IVPB Q12HR [facility] Rx #:[id number] Cisatracurium 200 mg In 103.358 0 Sodium Chloride 0.9% 180 ml @ 2 MCG/KG/MIN 12.372 mls/hr IV .[id number] [facility] Rx #:[id number] Diltiazem 125 mg In 84.25 Sodium Chloride 0.9% 100 ml @ Per Protocol IV .Q0M [facility] Rx#:[id number] Norepinephrine 32 mg In 50.929 39.405 160.777 Sodium Chloride 0.9% 218 ml @ 0.05 MCG/KG/MIN 2. 416 mls/hr IV .Q24H [facility] Rx#:[id number] Sodium Chloride 0.9% 1, 1000 000 ml @ 999 mls/hr IV . Q1H1M [facility] Rx#:[id number] propofoL 1,000 mg In 379.428 350.100 474.763 Empty Bag 1 bag @ Titrate IV .Q0M [facility] Rx#: [id number] Tube Feeding 120 60 180 Other 60 30 Output: Urine 475 660 440 Other: Voiding Method Indwelling Catheter Indwelling Catheter Indwelling Catheter ABP, PAP, CO, CI - Last Documented Arterial Blood Pressure 101/52 - Exam No acute distress, currently sedated , with an orally placed endotracheal tube and NG tube. HEENT examination is grossly unremarkable. Neck supple. Full range of motion. No adenopathy thyromegaly or neck vein dist ention. Cardiovascular examination reveals regular rhythm rate. S1-S2 normal. No S3 or S4. No discernible murmur noted. Heart sounds are distant. Heart rate 122 bpm. Lungs reveal coarse bilateral rhonchi. No wheezes or crackles. Breath sounds equal. Abdomen soft with bowel sounds. No masses or tenderness. Extremities are intact. No cyanosis clubbing or edema. Skin is without rash or lesion. Neurologic examination cannot be adequately assessed as the patient is currently sedated - Labs CBC & Chem 7: 09/06/21 04:52 09/06/21 04:52 Labs: Abnormal Lab Results - Last 24 Hours (Table) 09/05/21 09/05/21 09/05/21 Range/Units 08:05 11:47 17:00 WBC (3.8-10.6) k/uL Neutrophils # (Manual) (1.3-7.7) k/uL Lymphocytes # (Manual) (1.0-4.8) k/uL Metamyelocytes # (Man) (0) k/uL Nucleated RBCs (0-0) /100 WBC ABG pH 7.24 L (7.35-7.45) ABG pCO2 54 H (35-45) mmHg ABG pO2 59 L* (83-108) mmHg ABG Total CO2 25 H (19-24) mmol/L ABG O2 Saturation 89.0 L (94-97) % Sodium (137-145) mmol/L Potassium (3.5-5.1) mmol/L Carbon Dioxide (22-30) mmol/L BUN (9-20) mg/dL Creatinine (0.66-1.25) mg/dL Glucose (74-99) mg/dL POC Glucose (mg/dL) 151 H 174 H (75-99) mg/dL Calcium (8.4-10.2) mg/dL Lactate Dehydrogenase (313-618) U/L C-Reactive Protein (<1.0) mg/dL Total Protein (6.3-8.2) g/dL Albumin (3.5-5.0) g/dL 09/05/21 09/06/21 09/06/21 Range/Units 20:43 00:39 04:52 WBC (3.8-10.6) k/uL Neutrophils # (Manual) (1.3-7.7) k/uL Lymphocytes # (Manual) (1.0-4.8) k/uL Metamyelocytes # (Man) (0) k/uL Nucleated RBCs (0-0) /100 WBC ABG pH 7.23 L (7.35-7.45) ABG pCO2 54 H (35-45) mmHg ABG pO2 55 L* (83-108) mmHg ABG Total CO2 (19-24) mmol/L ABG O2 Saturation 87.3 L (94-97) % Sodium 129 L (137-145) mmol/L Potassium 5.3 H (3.5-5.1) mmol/L Carbon Dioxide 20 L (22-30) mmol/L BUN 64 H (9-20) mg/dL Creatinine 1.92 H (0.66-1.25) mg/dL Glucose 157 H (74-99) mg/dL POC Glucose (mg/dL) 161 H (75-99) mg/dL Calcium 8.0 L (8.4-10.2) mg/dL Lactate Dehydrogenase 794 H (313-618) U/L C-Reactive Protein 37.4 H (<1.0) mg/dL Total Protein 5.1 L (6.3-8.2) g/dL Albumin 2.4 L (3.5-5.0) g/dL 09/06/21 09/06/21 09/06/21 Range/Units 04:52 04:55 05:53 WBC 24.7 H (3.8-10.6) k/uL Neutrophils # (Manual) 23.20 H (1.3-7.7) k/uL Lymphocytes # (Manual) 0.25 L (1.0-4.8) k/uL Metamyelocytes # (Man) 0.25 H (0) k/uL Nucleated RBCs 1 H (0-0) /100 WBC ABG pH 7.21 L (7.35-7.45) ABG pCO2 55 H (35-45) mmHg ABG pO2 58 L* (83-108) mmHg ABG Total CO2 (19-24) mmol/L ABG O2 Saturation 88.3 L (94-97) % Sodium (137-145) mmol/L Potassium (3.5-5.1) mmol/L Carbon Dioxide (22-30) mmol/L BUN (9-20) mg/dL Creatinine (0.66-1.25) mg/dL Glucose (74-99) mg/dL POC Glucose (mg/dL) 158 H (75-99) mg/dL Calcium (8.4-10.2) mg/dL Lactate Dehydrogenase (313-618) U/L C-Reactive Protein (<1.0) mg/dL Total Protein (6.3-8.2) g/dL Albumin (3.5-5.0) g/dL Assessment and Plan Plan: 1 Acute hypoxemic respiratory failure, secondary to coronavirus COVID 19 - associated pneumonia. Status post intubation and mechanical ventilation, on 11/02/2020, for worsening hypoxemic respiratory failure. The patient remains intubated on a mechanical ventilator. Chest x-ray findings are essentially the same with diffuse but the pulmonary infiltrates. Oxygenation is borderline with a pulse ox of 85% on above-mentioned ventilator setting. The patient remains on Decadron. The patient has demonstrated some improvement in the inflammatory markers with rapid LDH compared to yesterday. CRP remains quite elevated. The patient remains on Decadron for now. Peak and static pressures are 31 and 30 respectively. 2 History of atrial fibrillation. Patient is currently on amiodarone drip at 0.5 mg per minute and Cardizem drip at 5 mg an hour for rate control. The patient on long-term anticoagulation with Eliquis 5 mg by mouth twice a day. 3 systolic heart failure with an ejection fraction 40-45% 4 hypotension currently on pressors with norepinephrine infusion running at 0.22 mcg/kg per minute. Obviously, with a new onset leukocytosis and hypotension, sepsis is a constellation this patient. Cultures will be sent and the patient will be started on broad-spectrum antibiotics. The patient remains pressor dependent and the white cell count is improved compared to yesterday 5 COPD, with chronic hypoxemic respiratory failure. 6 acute kidney injury and the patient's progressive worsening renal function and creatinine is up to 1.9, rule out community related ATN. Rule out hypotension- induced ATN, the patient is in a positive fluid balance in the creatinine is up to 1.9 7 Mnire's disease. 8 obstructive sleep apnea syndrome. Not utilizing or nontolerant to CPAP therapy on outpatient basis 9 Valvular heart disease. Please refer to the most recent echocardiogram. Ejection fraction is 40-45%.No significant valvular abnormalities based on the most recent echo the 10 Status post left thoracotomy for closure of diaphragmatic hernia. 11 history of hypertension 12 history of hyperlipidemia 13 BPH Plan: Continue ventilator support. No ventilator changes today Give the patient ultimately Nimbex Continue sedation with propofol Given a dose of Lasix 60 mg IV push Monitor renal function Repeated blood gas today Check blood cultures, and sputum cultures, results are pending for now Continue IV cefepime 2 g every 12 hours Continue Decadron Wean off pressors if possible currently on 0.22 mcg/kg per minute of no repinephrine infusion Repeat inflammatory markers for tomorrow including LDH and CRP continue anticoagulation with Eliquis Monitor renal function Continue enteral feeding for nutritional support Condition is obvious the critical and outcomes poor baseline above-mentioned comorbidities. We'll continue to follow, critical care evaluation more than 30 minutes. Time with Patient: Greater than 30
[2021-09-06] MEDS: NOREPINEPHRINE 32 MG in SODIUM CHLORIDE 0.9% 218 ML IV SCH (07:40)
[2021-09-06] MEDS: CEFEPIME 2 GM in SODIUM CHLORIDE 0.9% 100 ML IVPB SCH ×2 (07:40→20:43)
[2021-09-06] MEDS: AMIODARONE 450 MG in DEXTROSE 5% IN WATER 250 ML IV SCH ×2 (08:04)
[2021-09-06] MEDS ORDERED: SODIUM BICARB 8.4% 50 ML SYR (1 MEQ/ML) IV STA (08:05)
[2021-09-06] MEDS: CHOLECALCIFEROL 25 MCG (1000 IU) TABLET PO SCH (08:13)
[2021-09-06] MEDS: SODIUM BICARBONATE TAB 650 MG TAB PO SCH ×2 (08:13→20:43)
[2021-09-06] MEDS: DEXAMETHASONE SOD PHOSPHATE 10 MG/ML 1 ML VIAL IVP SCH (08:13)
[2021-09-06] MEDS: APIXABAN 5 MG TAB PO SCH ×2 (08:14→20:42)
[2021-09-06] MEDS: CHLORHEXIDINE GLUCONATE 15 ML CUP MUCOUS MEM SCH ×2 (08:14→20:43)
[2021-09-06] MEDS: ZINC SULFATE 220 MG CAP PO SCH (08:14)
[2021-09-06] MEDS: PANTOPRAZOLE 40 MG/10 ML VIAL IVP SCH (08:14)
[2021-09-06] MEDS: ASCORBIC ACID 500 MG TAB PO SCH (08:14)
--- NOTE | 2021-09-06 08:49 | P.PN ---
Subjective Patient is seen in follow-up for acute kidney injury and hyponatremia. Sodium level stable at 129. Creatinine 1.92 today. Receiving tube feeds. Urine output 30-50 mL an hour. On Levophed. Also on Cardizem as well as amiodarone drip for A. fib. Intubated. On 85% FiO2. Vital signs are stable. On vasopressor support. HEENT: Intubated. No gross edema noted. Irregular rate and rhythm. Exam discussed with the nurse. Objective - Vital Signs Vital signs: Vital Signs Temp 99.9 F H 09/06/21 08:00 Pulse 125 H 09/06/21 08:30 Resp 29 H 09/06/21 08:30 BP 123/70 09/06/21 08:30 Pulse Ox 89 L 09/06/21 08:30 Intake & Output 09/05/21 09/06/21 09/06/21 18:59 06:59 18:59 Intake Total 2929.755 1065.540 398.136 Output Total 660 440 Balance 2269.755 625.540 398.136 Weight 106.4 kg 106.4 kg Intake: IV 1296 220 .9 296 220 bolus 1000 Intake, IV Titration 1573.755 635.540 383.136 Amount Amiodarone 450 mg In 250 Dextrose 5% in Water 250 ml @ 0.5 MG/MIN 16.667 mls/hr IV .Q15H [facility] Rx#: [id number] Cefepime 2 gm In Sodium 100 Chloride 0.9% 100 ml @ 25 mls/hr IVPB Q12HR [facility] Rx #:[id number] Cisatracurium 200 mg In 0 Sodium Chloride 0.9% 180 ml @ 2 MCG/KG/MIN 12.372 mls/hr IV .[id number] [facility] Rx #:[id number] Diltiazem 125 mg In 84.25 Sodium Chloride 0.9% 100 ml @ Per Protocol IV .Q0M [facility] Rx#:[id number] Norepinephrine 32 mg In 39.405 160.777 33.136 Sodium Chloride 0.9% 218 ml @ 0.05 MCG/KG/MIN 2. 416 mls/hr IV .Q24H [facility] Rx#:[id number] Sodium Chloride 0.9% 1, 1000 000 ml @ 999 mls/hr IV . Q1H1M [facility] Rx#:[id number] propofoL 1,000 mg In 350.100 474.763 100 Empty Bag 1 bag @ Titrate IV .Q0M [facility] Rx#: [id number] Tube Feeding 60 180 15 Other 30 Output: Urine 660 440 Other: Voiding Method Indwelling Catheter Indwelling Catheter ABP, PAP, CO, CI - Last Documented Arterial Blood Pressure 137/61 - Labs CBC & Chem 7: 09/06/21 04:52 09/06/21 04:52 Labs: Abnormal Lab Results - Last 24 Hours (Table) 09/05/21 09/05/21 09/05/21 Range/Units 11:47 17:00 20:43 WBC (3.8-10.6) k/uL Neutrophils # (Manual) (1.3-7.7) k/uL Lymphocytes # (Manual) (1.0-4.8) k/uL Metamyelocytes # (Man) (0) k/uL Nucleated RBCs (0-0) /100 WBC ABG pH 7.23 L (7.35-7.45) ABG pCO2 54 H (35-45) mmHg ABG pO2 55 L* (83-108) mmHg ABG O2 Saturation 87.3 L (94-97) % Sodium (137-145) mmol/L Potassium (3.5-5.1) mmol/L Carbon Dioxide (22-30) mmol/L BUN (9-20) mg/dL Creatinine (0.66-1.25) mg/dL Glucose (74-99) mg/dL POC Glucose (mg/dL) 151 H 174 H (75-99) mg/dL Calcium (8.4-10.2) mg/dL Lactate Dehydrogenase (313-618) U/L C-Reactive Protein (<1.0) mg/dL Total Protein (6.3-8.2) g/dL Albumin (3.5-5.0) g/dL 09/06/21 09/06/21 09/06/21 Range/Units 00:39 04:52 04:52 WBC 24.7 H (3.8-10.6) k/uL Neutrophils # (Manual) 23.20 H (1.3-7.7) k/uL Lymphocytes # (Manual) 0.25 L (1.0-4.8) k/uL Metamyelocytes # (Man) 0.25 H (0) k/uL Nucleated RBCs 1 H (0-0) /100 WBC ABG pH (7.35-7.45) ABG pCO2 (35-45) mmHg ABG pO2 (83-108) mmHg ABG O2 Saturation (94-97) % Sodium 129 L (137-145) mmol/L Potassium 5.3 H (3.5-5.1) mmol/L Carbon Dioxide 20 L (22-30) mmol/L BUN 64 H (9-20) mg/dL Creatinine 1.92 H (0.66-1.25) mg/dL Glucose 157 H (74-99) mg/dL POC Glucose (mg/dL) 161 H (75-99) mg/dL Calcium 8.0 L (8.4-10.2) mg/dL Lactate Dehydrogenase 794 H (313-618) U/L C-Reactive Protein 37.4 H (<1.0) mg/dL Total Protein 5.1 L (6.3-8.2) g/dL Albumin 2.4 L (3.5-5.0) g/dL 09/06/21 09/06/21 Range/Units 04:55 05:53 WBC (3.8-10.6) k/uL Neutrophils # (Manual) (1.3-7.7) k/uL Lymphocytes # (Manual) (1.0-4.8) k/uL Metamyelocytes # (Man) (0) k/uL Nucleated RBCs (0-0) /100 WBC ABG pH 7.21 L (7.35-7.45) ABG pCO2 55 H (35-45) mmHg ABG pO2 58 L* (83-108) mmHg ABG O2 Saturation 88.3 L (94-97) % Sodium (137-145) mmol/L Potassium (3.5-5.1) mmol/L Carbon Dioxide (22-30) mmol/L BUN (9-20) mg/dL Creatinine (0.66-1.25) mg/dL Glucose (74-99) mg/dL POC Glucose (mg/dL) 158 H (75-99) mg/dL Calcium (8.4-10.2) mg/dL Lactate Dehydrogenase (313-618) U/L C-Reactive Protein (<1.0) mg/dL Total Protein (6.3-8.2) g/dL Albumin (3.5-5.0) g/dL Assessment and Plan Plan: Assessment: 1. Hypovolemic hyponatremia improved with IV hydration. Also component of SIADH from respiratory infection. Sodium level stable at 129 today. Urine osmolality 380. 2. Acute kidney injury secondary to ATN secondary to hypotension and sepsis. Creatinine 1.92 today. 3. A. fib with RVR maintained on amiodarone and Cardizem drip. 4. COVID-19 pneumonia. Intubated. On 85% FiO2. 5. Metabolic acidosis secondary to acute kidney injury. Also has respiratory acidosis. 6. Acute hypoxic respiratory failure. Plan: Maintain oral bicarb. I will give him sodium bicarb IV push as well. Scheduled to receive IV Lasix 60 mg once today. Wean FiO2 and vasopressors. Maintain tube feeds. Receiving minimal free water. Consider Nepro. Continue to monitor renal function and urine output. Repeat potassium level this evening.
--- NOTE | 2021-09-06 08:58 | XR ---
EXAMINATION TYPE: XR chest 1V portable DATE OF EXAM: 09/06/2021 COMPARISON: Chest x-ray 09/05/2021, CT chest 02/17/2021 HISTORY: Covid pneumonia TECHNIQUE: Single frontal view of the chest is obtained. FINDINGS: Endotracheal tube, NG tube, left jugular central venous catheter are overlying appropriate positions. Bilateral airspace disease, prominence interstitium is again noted, lung hernia is noted to the left costophrenic angle level. There is no evident pneumothorax or pleural effusion, there are overlying artifacts. Cardiac mediastinal silhouette appears prominently, exam is expiratory. IMPRESSION: Correlate for pneumonia, ARDS, congestive heart failure. Lung hernia. There is underlyin g emphysema.
[2021-09-06] MEDS: ALBUTEROL HFA INHALER INHALATION SCH ×4 (09:13→19:02)
[2021-09-06] MEDS: SYMBICORT 160-4.5 MCG INHALER INHALATION SCH ×2 (09:13→19:02)
[2021-09-06] MEDS: DILTIAZEM 125 MG in SODIUM CHLORIDE 0.9% 100 ML IV SCH (09:32)
[2021-09-06] MEDS: AMIODARONE 200 MG TAB PO SCH ×2 (10:10→20:42)
[2021-09-06 11:40] LABS: Glucose,Whole Blood 140 mg/dL (75-99)
--- NOTE | 2021-09-06 14:14 | P.PN ---
Subjective Progress Note Date: 09/06/21 This 76-year-old gentleman is admitted to hospital with [place] pneumonia and hypoxia requiring intubation and respiratory support. We're asked to see the patient because of recurrent atrial fibrillation. Patient was initially initiated on amiodarone with conversion to sinus rhythm. He was switched to by mouth amiodarone, but subsequently went back into atrial fibrillation. He was restarted on amiodarone drip and also Cardizem drip. He still has severe hypoxia. His echo showed an ejection fraction of 4045%. There is some suggestion that could be component of CHF. Patient has been hypotensive and septic. He is on nor epinephrine. We'll continue his amiodarone drip per overnight. If stable, will switch to by mouth amiodarone tomorrow. Overall his prognosis is guarded. 09/06/2021: This patient remains intubated. Still in atrial fibrillation with controlled ventricular response with heart rates in 82 to 100 range. Patient chest x-ray still shows picture of pneumonia and ARDS and his ABGs still show hypoxia and hypercapnia. His creatinine is 1.92. From cardiac standpoint, we can stop the amiodarone drip and start him on by mouth amiodarone 400 mg by mouth twice a day. Subsequently at times will be made to wean off Cardizem. 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 Prognosis is guarded Objective - Vital Signs Vital signs: Vital Signs Temp 99.9 F H 09/06/21 08:00 Pulse 111 H 09/06/21 11:00 Resp 29 H 09/06/21 11:00 BP 133/75 09/06/21 11:00 Pulse Ox 88 L 09/06/21 11:00 Intake & Output 09/05/21 09/06/21 09/06/21 18:59 06:59 18:59 Intake Total 2929.755 1065.540 955.626 Output Total 660 440 610 Balance 2269.755 625.540 345.626 Weight 106.4 kg 106.4 kg Intake: IV 1296 220 138 .9 296 220 138 bolus 1000 Intake, IV Titration 1573.755 635.540 802.626 Amount Amiodarone 450 mg In 250 Dextrose 5% in Water 250 ml @ 0.5 MG/MIN 16.667 mls/hr IV .Q15H [facility] Rx#: [id number] Cefepime 2 gm In Sodium 100 100 Chloride 0.9% 100 ml @ 25 mls/hr IVPB Q12HR [facility] Rx #:[id number] Cisatracurium 200 mg In 0 Sodium Chloride 0.9% 180 ml @ 2 MCG/KG/MIN 12.372 mls/hr IV .[id number] [facility] Rx #:[id number] Diltiazem 125 mg In 84.25 94.75 Sodium Chloride 0.9% 100 ml @ Per Protocol IV .Q0M [facility] Rx#:[id number] Norepinephrine 32 mg In 39.405 160.777 75.634 Sodium Chloride 0.9% 218 ml @ 0.05 MCG/KG/MIN 2. 416 mls/hr IV .Q24H [facility] Rx#:[id number] Sodium Chloride 0.9% 1, 1000 000 ml @ 999 mls/hr IV . Q1H1M [facility] Rx#:[id number] propofoL 1,000 mg In 350.100 474.763 282.242 Empty Bag 1 bag @ Titrate IV .Q0M [facility] Rx#: [id number] Tube Feeding 60 180 15 Other 30 Output: Urine 660 440 610 Other: Voiding Method Indwelling Catheter Indwelling Catheter Indwelling Catheter ABP, PAP, CO, CI - Last Documented Arterial Blood Pressure 121/63 - Exam Patient is not personally examined. Information is gathered from consult and notes. For further information could be gathered from skin care consultant notes - Labs CBC & Chem 7: 09/06/21 04:52 09/06/21 04:52 Labs: Abnormal Lab Results - Last 24 Hours (Table) 09/05/21 09/05/21 09/06/21 Range/Units 17:00 20:43 00:39 WBC (3.8-10.6) k/uL Neutrophils # (Manual) (1.3-7.7) k/uL Lymphocytes # (Manual) (1.0-4.8) k/uL Metamyelocytes # (Man) (0) k/uL Nucleated RBCs (0-0) /100 WBC ABG pH 7.23 L (7.35-7.45) ABG pCO2 54 H (35-45) mmHg ABG pO2 55 L* (83-108) mmHg ABG O2 Saturation 87.3 L (94-97) % Sodium (137-145) mmol/L Potassium (3.5-5.1) mmol/L Carbon Dioxide (22-30) mmol/L BUN (9-20) mg/dL Creatinine (0.66-1.25) mg/dL Glucose (74-99) mg/dL POC Glucose (mg/dL) 174 H 161 H (75-99) mg/dL Calcium (8.4-10.2) mg/dL Lactate Dehydrogenase (313-618) U/L C-Reactive Protein (<1.0) mg/dL Total Protein (6.3-8.2) g/dL Albumin (3.5-5.0) g/dL 09/06/21 09/06/21 09/06/21 Range/Units 04:52 04:52 04:55 WBC 24.7 H (3.8-10.6) k/uL Neutrophils # (Manual) 23.20 H (1.3-7.7) k/uL Lymphocytes # (Manual) 0.25 L (1.0-4.8) k/uL Metamyelocytes # (Man) 0.25 H (0) k/uL Nucleated RBCs 1 H (0-0) /100 WBC ABG pH (7.35-7.45) ABG pCO2 (35-45) mmHg ABG pO2 (83-108) mmHg ABG O2 Saturation (94-97) % Sodium 129 L (137-145) mmol/L Potassium 5.3 H (3.5-5.1) mmol/L Carbon Dioxide 20 L (22-30) mmol/L BUN 64 H (9-20) mg/dL Creatinine 1.92 H (0.66-1.25) mg/dL Glucose 157 H (74-99) mg/dL POC Glucose (mg/dL) 158 H (75-99) mg/dL Calcium 8.0 L (8.4-10.2) mg/dL Lactate Dehydrogenase 794 H (313-618) U/L C-Reactive Protein 37.4 H (<1.0) mg/dL Total Protein 5.1 L (6.3-8.2) g/dL Albumin 2.4 L (3.5-5.0) g/dL 09/06/21 09/06/21 Range/Units 05:53 11:38 WBC (3.8-10.6) k/uL Neutrophils # (Manual) (1.3-7.7) k/uL Lymphocytes # (Manual) (1.0-4.8) k/uL Metamyelocytes # (Man) (0) k/uL Nucleated RBCs (0-0) /100 WBC ABG pH 7.21 L (7.35-7.45) ABG pCO2 55 H (35-45) mmHg ABG pO2 58 L* (83-108) mmHg ABG O2 Saturation 88.3 L (94-97) % Sodium (137-145) mmol/L Potassium (3.5-5.1) mmol/L Carbon Dioxide (22-30) mmol/L BUN (9-20) mg/dL Creatinine (0.66-1.25) mg/dL Glucose (74-99) mg/dL POC Glucose (mg/dL) 140 H (75-99) mg/dL Calcium (8.4-10.2) mg/dL Lactate Dehydrogenase (313-618) U/L C-Reactive Protein (<1.0) mg/dL Total Protein (6.3-8.2) g/dL Albumin (3.5-5.0) g/dL Microbiology - Last 24 Hours (Table) 09/06/21 03:18 Sputum Culture - Preliminary Sputum 09/03/21 01:22 Gram Stain - Preliminary Sputum Sputum Culture - Preliminary Gram Neg Bacilli Assessment and Plan (1) Acute respiratory failure due to COVID-19 Current Visit: Yes Status: Acute Code(s): U07.1 - COVID-19; J96.00 - ACUTE RESPIRATORY FAILURE, UNSP W HYPOXIA OR HYPERCAPNIA SNOMED Code(s): 076974669 (2) Hyponatremia Current Visit: Yes Status: Acute Code(s): E87.1 - HYPO-OSMOLALITY AND HYPONATREMIA SNOMED Code(s): 08866814 (3) Acute exacerbation of chronic obstructive airways disease Current Visit: No Status: Acute Code(s): J44.1 - CHRONIC OBSTRUCTIVE PULMONARY DISEASE W (ACUTE) EXACERBATION SNOMED Code(s): 262786427 (4) Diaphragmatic hernia Current Visit: No Status: Acute Code(s): K44.9 - DIAPHRAGMATIC HERNIA WITHOUT OBSTRUCTION OR GANGRENE SNOMED Code(s): 97578268 (5) Paroxysmal atrial fibrillation Current Visit: No Status: Acute Code(s): I48.0 - PAROXYSMAL ATRIAL FIBRILLATION SNOMED Code(s): 674133636 Plan: Discontinue IV amiodarone. Start by mouth amiodarone. Subsequently, may co nsider weaning off the Cardizem. Continue rest of the medication and management. Prognosis is guarded
--- NOTE | 2021-09-06 14:47 | P.PN ---
Subjective Progress Note Date: 09/06/21 76-year-old pleasant male with known history of COPD with suicidal dysfunction at home given with complaints of shortness of breath cough without any sputum production going on for about one and half week. Patient did did get vaccinated for Covid and found to have Covid 19 pneumonia chest x-ray did not show any significant infiltrate. Patient denied any chest pain abdominal pain, diarrhea or nausea or vomiting. Patient is on Augmentin not sure why he is taking Augmentin as an outpatient. Patient is presently on 5 L of oxygen saturating at 95% and patient was having fevers with temperature of 100.6. Patient is also hyponatremic and is on hydrochlorothiazide at home. Patient was started on Dec adron. D-dimer is within normal limits 08/31/2021 Patient is seen and evaluated in follow-up with no acute overnight issues. Patient normally wears 2 L of oxygen as needed at night in the outpatient setting and currently continues on 5 L. Discussed with nursing staff about weaning FiO2 as tolerated. Pulmonary and infectious disease following an patient is maintained on bronchodilators along with vitamin and zinc supplements and has been started on IV dexamethasone and Lovenox subcutaneous injections. Patient continues on gentle IV hydration at 75 ML per hour and will continue for now. Patient was hyponatremic at 125 and today's sodium level is 129. 09/01/2021 Patient is seen in follow-up this morning and overnight developed progressing worsening shortness of breath and currently on 15 L high flow nasal cannula. Nursing staff patient continues to remove oxygen and dropping down into the 70s and 80s oxygen saturation. Patient continues with a cough and rhonchi noted throughout on exam. Sodium level has dropped back down to 125 and will consult nephrology. Patient is extremely hard of hearing. Chest x-ray today shows interstitial and patchy left-sided infiltrates that are mildly progressed. Pulmonary and infectious disease following as well. 09/02/2021 Patient is seen in follow-up this morning with worsening respirations and difficulty in breathing and maintained on 15 L high flow along with nonrebreather and working to breathe with continued cough. Pulmonary and infectious disease following closely and patient started on Baricitinib and maintained on vitamin and zinc supplements along with Lovenox and IV dexamethasone and will continue. Patient being transitioned to Airvo with respiratory following closely as well. Discussed CODE STATUS with the patient and he wishes to remain full code. Nephrology also consulted for hyponatremia and IV fluids have been discontinued and patient is receiving a dose of IV Lasix today. 09/03/2021 Patient is seen in the ICU. Yesterday evening around 6 o'clock patient's condition has deteriorated and rapid response team was called and the patient was in A. fib with RVR and subsequently had worsening difficulty in breathing and required stat intubation with transfer to the ICU. He is currently on a ventilator. ABGs from this morning showing pH of 7.24, PCO2 of 47 and PO2 of 121 on 100% FiO2. Patient's blood pressure running on the lower side and he is on Levophed and amiodarone drip. He is sedated. 09/04/2021 Patient is seen and examined in the ICU. Patient continues to be on mechanical ventilator requiring 65% FiO2 with a PEEP of 15 saturating at low 90s. Patient continues to be on Levophed, to maintain a map of about 65. Lovenox has been discontinued and patient is started on Eliquis for anticoagulation in view of his atrial fibrillation. On 09/05/2021 Patient is seen and examined in the ICU. Patient is intubated and mechanically ventilated. Patient has been in and out of atrial fibrillation, currently A. fib with rapid RVR. He is being maintained on Cardizem drip and he is on Eliquis for anticoagulation. On reviewing the vitals blood pressure 109 x 72. Reviewed ABGs from this morning showing pH of 7.24, PCO2 54, PO2 of 59. He is on 65% FiO2 with PEEP of 15 saturating around 90%. On reviewing his labs from this morning white count of 13.1, hemoglobin 14.9, platelets 311. Sodium 130, potassium 4.9, chloride 103, bicarb 21, BUN 47, creatinine 1.53. 09/06/2021 Patient is seen and evaluated in follow-up continues to be closely monitored in the ICU with multiple medical consultations following including pulmonary, cardiology, nephrology. Patient is intubated and sedated. Patient on multiple drips including propofol for sedation, norepinephrine, Cardizem, amiodarone, IV cefepime. Patient was given a dose of IV Lasix today and is maintained on sodium bicarb tablets with nephrology following closely. Prognosis remains extremely guarded. Patient is also maintained on IV cefepime and white blood count trending down although continues to be elevated and patient has been having intermittent low-grade temps and continues to be in A. fib with RVR. Kidney functions worsening in creatinine elevated at 1.19 today. Labs: White blood count is 24.7, hemoglobin is 14.3, platelets are 325, sodium is 129, potassium is 5.3, BUN is 64, creatinine is 1.92, calcium is 8.0, LDH is 794, CRP is 37.4, ABG shows a pH of 7.21, pCO2 is 55, pO2 is 58, bicarb is 22, total CO2 is 24, oxygen saturation is 88.3. Review of systems: unable to obtain as patient is intubated and sedated All medications have been reviewed Active Medications Acetaminophen (Acetaminophen Tab 325 Mg Tab) 650 mg PO Q6HR PRN PRN Reason: Mild Pain or Fever > 100.5 Last Admin: 09/01/21 17:38 Dose: 650 mg Documented by: Albuterol Sulfate (Albuterol Hfa Inhaler) 2 puff INHALATION RT-QID PRN PRN Reason: Shortness Of Breath Or Wheezing Albuterol Sulfate (Albuterol Hfa Inhaler) 2 puff INHALATION RT-QID [facility] Last Admin: 09/06/21 12:22 Dose: 2 puff Documented by: Albuterol/Ipratropium (Ipratropium-Albuterol 3 Ml Neb) 3 ml INHALATION RT-QID PRN PRN Reason: Shortness Of Breath Or Wheezing Amiodarone HCl (Amiodarone 200 Mg Tab) 400 mg PO BID [facility] Last Admin: 09/06/21 10:10 Dose: 400 mg Documented by: Apixaban (Apixaban 5 Mg Tab) 5 mg PO BID [facility]; Protocol Last Admin: 09/06/21 08:14 Dose: 5 mg Documented by: Artificial Tears (Artificial Tears-Hypromellose Drops 15 Ml Btl) 2 drops BOTH EYES Q4HR [facility] Last Admin: 09/06/21 11:56 Dose: 2 drops Documented by: Ascorbic Acid (Ascorbic Acid 500 Mg Tab) 500 mg PO DAILY [facility] Last Admin: 09/06/21 08:14 Dose: 500 mg Documented by: Budesonide/Formoterol Fumarate (Symbicort 160-4.5 Mcg Inhaler) 2 puff INHALATI ON RT-BID [facility] Last Admin: 09/06/21 09:13 Dose: 2 puff Documented by: Chlorhexidine Gluconate (Chlorhexidine Gluconate 15 Ml Cup) 15 ml MUCOUS MEM BID [facility] Last Admin: 09/06/21 08:14 Dose: 15 ml Documented by: Cholecalciferol (Cholecalciferol 25 Mcg (1000 Iu) Tablet) 100 mcg PO DAILY [facility] Last Admin: 09/06/21 08:13 Dose: 100 mcg Documented by: Dexamethasone Sodium Phosphate (Dexamethasone Sod Phosphate 10 Mg/Ml 1 Ml Vial) 6 mg IVP DAILY [facility] Last Admin: 09/06/21 08:13 Dose: 6 mg Documented by: Propofol 1,000 mg/ IV Solution 100 mls @ 0 mls/hr IV .Q0M [facility]; Protocol Last Admin: 09/06/21 11:56 Dose: 70 mcg/kg/min, 44.058 mls/hr Documented by: Cisatracurium Besylate 200 mg/ (Sodium Chloride) 200 mls @ 12.372 mls/hr IV .[id number] [facility]; Protocol Last Admin: 09/06/21 05:51 Dose: Not Given Documented by: Norepinephrine Bitartrate 32 (mg/ Sodium Chloride) 250 mls @ 2.416 mls/hr IV .Q24H [facility]; Protocol Last Titration: 09/06/21 11:57 Dose: 0.18 mcg/kg/min, 8.699 mls/hr Documented by: Diltiazem HCl 125 mg/ Sodium (Chloride) 125 mls @ 0 mls/hr IV .Q0M [facility]; Protocol Last Admin: 09/06/21 09:32 Dose: 5 mg/hr, 5 mls/hr Documented by: Cefepime HCl 2 gm/ Sodium (Chloride) 100 mls @ 25 mls/hr IVPB Q12HR [facility] Last Admin: 09/06/21 07:40 Dose: 25 mls/hr Documented by: Amiodarone HCl 450 mg/ (Dextrose/Water) 250 mls @ 16.667 mls/hr IV .Q15H [facility]; Protocol Last Admin: 09/06/21 08:04 Dose: 0.5 mg/min, 16.667 mls/hr Documented by: Insulin Aspart (Insulin Aspart (Novolog) 100 Unit/Ml Vial) 0 unit SQ Q6H [facility]; Protocol Last Admin: 09/06/21 11:56 Dose: 1 unit Documented by: Morphine Sulfate (Morphine Sulfate 2 Mg/Ml Syringe) 2 mg IVP Q4HR PRN PRN Reason: Mild Pain Last Admin: 09/02/21 21:37 Dose: 2 mg Documented by: Pantoprazole Sodium (Pantoprazole 40 Mg/10 Ml Vial) 40 mg IVP DAILY [facility] Last Admin: 09/06/21 08:14 Dose: 40 mg Documented by: Pravastatin Sodium (Pravastatin Sodium 20 Mg Tab) 10 mg PO HS [facility] Last Admin: 09/05/21 20:00 Dose: 10 mg Documented by: Sodium Bicarbonate (Sodium Bicarbonate Tab 650 Mg Tab) 650 mg PO BID [facility] Last Admin: 09/06/21 08:13 Dose: 650 mg Documented by: Zinc Sulfate (Zinc Sulfate 220 Mg Cap) 220 mg PO DAILY [facility] Last Admin: 09/06/21 08:14 Dose: 220 mg Documented by: PHYSICAL EXAMINATION: GENERAL: intubated in the ICU, and sedated. Temp is 99.9F, pulse is 109, respirations are 28, blood pressure is 127/67, arterial pressure is 110/58, oxygen saturation is 86% on 85% FiO2 mechanical vent HEENT: Pupils are round . EOMI. No scleral icterus. No conjunctival pallor. OG tube in place. CARDIOVASCULAR: S1 and S2 muffled, irregular PULMONARY: Diminished breath sounds with scattered coarse rhonchi and crackles noted bilaterally ABDOMEN: Soft, nontender, nondistended, normoactive bowel sounds. No palpable organomegaly. MUSCULOSKELETAL: No joint swelling or deformity. EXTREMITIES: No cyanosis, clubbing, or pedal edema. Muscle wasting noted NEUROLOGICAL: sedated SKIN: No rashes. Assessment and plan: -Covid 19 pneumonia -Acute on chronic Hypoxic respiratory failure secondary to above requiring mechanical ventilation -Hyponatremia -Acute kidney injury with oliguria -Atrial fibrillation with RVR -History of paroxysmal atrial fibrillation -Chronic hypercapnic respiratory failure secondary to COPD with mild acute exacerbation -Hypertension -Hyperlipidemia -Muscle wasting -Benign prostatic hypertrophy -DVT prophylaxis: Lovenox -GI prophylaxis -Full code Plan: Recommend to continue with current medications and management. Infectious disease, cardiology, nephrology, and pulmonary following. Patient continues on IV antibiotics in the form of cefepime a sputum culture showing gram-negative and repeat sputum culture pending. Patient currently on mechanical vent intubated and sedated and cardiology making adjustments to medications as patient continues to have elevated heart rate with atrial fibrillation RVR and continued on amiodarone drip along with oral amiodarone. Patient also continues on vitamin and zinc supplements along with IV dexamethasone and oral antic oagulant with Eliquis. Patient also continues on IV Cardizem, norepinephrine, propofol for sedation. Patient was given a dose of sodium bicarb along with IV Lasix and is maintained on sodium bicarb tablets with nephrology following closely. Chest x-ray today shows correlate for pneumonia, ARDS, congestive heart failure, lung hernia with underlying emphysema. Prognosis is guarded. Objective - Vital Signs Vital signs: Vital Signs Temp 99.9 F H 09/06/21 08:00 Pulse 125 H 09/06/21 08:30 Resp 29 H 09/06/21 08:30 BP 123/70 09/06/21 08:30 Pulse Ox 89 L 09/06/21 08:30 Intake & Output 09/05/21 09/06/21 09/06/21 18:59 06:59 18:59 Intake Total 2929.755 1065.540 733.178 Output Total 660 440 60 Balance 2269.755 625.540 673.178 Weight 106.4 kg 106.4 kg Intake: IV 1296 220 46 .9 296 220 46 bolus 1000 Intake, IV Titration 1573.755 635.540 672.178 Amount Amiodarone 450 mg In 250 Dextrose 5% in Water 250 ml @ 0.5 MG/MIN 16.667 mls/hr IV .Q15H [facility] Rx#: [id number] Cefepime 2 gm In Sodium 100 100 Chloride 0.9% 100 ml @ 25 mls/hr IVPB Q12HR [facility] Rx #:[id number] Cisatracurium 200 mg In 0 Sodium Chloride 0.9% 180 ml @ 2 MCG/KG/MIN 12.372 mls/hr IV .[id number] [facility] Rx #:[id number] Diltiazem 125 mg In 84.25 94.75 Sodium Chloride 0.9% 100 ml @ Per Protocol IV .Q0M [facility] Rx#:[id number] Norepinephrine 32 mg In 39.405 160.777 45.186 Sodium Chloride 0.9% 218 ml @ 0.05 MCG/KG/MIN 2. 416 mls/hr IV .Q24H [facility] Rx#:[id number] Sodium Chloride 0.9% 1, 1000 000 ml @ 999 mls/hr IV . Q1H1M [facility] Rx#:[id number] propofoL 1,000 mg In 350.100 474.763 182.242 Empty Bag 1 bag @ Titrate IV .Q0M [facility] Rx#: [id number] Tube Feeding 60 180 15 Other 30 Output: Urine 660 440 60 Other: Voiding Method Indwelling Catheter Indwelling Catheter ABP, PAP, CO, CI - Last Documented Arterial Blood Pressure 137/61 - Labs CBC & Chem 7: 09/06/21 04:52 09/06/21 04:52 Labs: Abnormal Lab Results - Last 24 Hours (Table) 09/05/21 09/05/21 09/05/21 Range/Units 11:47 17:00 20:43 WBC (3.8-10.6) k/uL Neutrophils # (Manual) (1.3-7.7) k/uL Lymphocytes # (Manual) (1.0-4.8) k/uL Metamyelocytes # (Man) (0) k/uL Nucleated RBCs (0-0) /100 WBC ABG pH 7.23 L (7.35-7.45) ABG pCO2 54 H (35-45) mmHg ABG pO2 55 L* (83-108) mmHg ABG O2 Saturation 87.3 L (94-97) % Sodium (137-145) mmol/L Potassium (3.5-5.1) mmol/L Carbon Dioxide (22-30) mmol/L BUN (9-20) mg/dL Creatinine (0.66-1.25) mg/dL Glucose (74-99) mg/dL POC Glucose (mg/dL) 151 H 174 H (75-99) mg/dL Calcium (8.4-10.2) mg/dL Lactate Dehydrogenase (313-618) U/L C-Reactive Protein (<1.0) mg/dL Total Protein (6.3-8.2) g/dL Albumin (3.5-5.0) g/dL 09/06/21 09/06/21 09/06/21 Range/Units 00:39 04:52 04:52 WBC 24.7 H (3.8-10.6) k/uL Neutrophils # (Manual) 23.20 H (1.3-7.7) k/uL Lymphocytes # (Manual) 0.25 L (1.0-4.8) k/uL Metamyelocytes # (Man) 0.25 H (0) k/uL Nucleated RBCs 1 H (0-0) /100 WBC ABG pH (7.35-7.45) ABG pCO2 (35-45) mmHg ABG pO2 (83-108) mmHg ABG O2 Saturation (94-97) % Sodium 129 L (137-145) mmol/L Potassium 5.3 H (3.5-5.1) mmol/L Carbon Dioxide 20 L (22-30) mmol/L BUN 64 H (9-20) mg/dL Creatinine 1.92 H (0.66-1.25) mg/dL Glucose 157 H (74-99) mg/dL POC Glucose (mg/dL) 161 H (75-99) mg/dL Calcium 8.0 L (8.4-10.2) mg/dL Lactate Dehydrogenase 794 H (313-618) U/L C-Reactive Protein 37.4 H (<1.0) mg/dL Total Protein 5.1 L (6.3-8.2) g/dL Albumin 2.4 L (3.5-5.0) g/dL 09/06/21 09/06/21 Range/Units 04:55 05:53 WBC (3.8-10.6) k/uL Neutrophils # (Manual) (1.3-7.7) k/uL Lymphocytes # (Manual) (1.0-4.8) k/uL Metamyelocytes # (Man) (0) k/uL Nucleated RBCs (0-0) /100 WBC ABG pH 7.21 L (7.35-7.45) ABG pCO2 55 H (35-45) mmHg ABG pO2 58 L* (83-108) mmHg ABG O2 Saturation 88.3 L (94-97) % Sodium (137-145) mmol/L Potassium (3.5-5.1) mmol/L Carbon Dioxide (22-30) mmol/L BUN (9-20) mg/dL Creatinine (0.66-1.25) mg/dL Glucose (74-99) mg/dL POC Glucose (mg/dL) 158 H (75-99) mg/dL Calcium (8.4-10.2) mg/dL Lactate Dehydrogenase (313-618) U/L C-Reactive Protein (<1.0) mg/dL Total Protein (6.3-8.2) g/dL Albumin (3.5-5.0) g/dL
[2021-09-06 18:19] LABS: Glucose,Whole Blood 142 mg/dL (75-99)
[2021-09-06] MEDS: PRAVASTATIN SODIUM 20 MG TAB PO SCH (20:43)
--- NOTE | 2021-09-06 22:42 | PN ---
PROGRESS NOTE DATE OF SERVICE: 09/06/2021 REASON FOR FOLLOWUP: Pneumonia. INTERVAL HISTORY: The patient is afebrile. The patient is hemodynamically stable. FiO2 is currently slightly up compared to yesterday at 85%. No significant purulent secretions through the ET, diarrhea or any other changes reported by nursing staff. PHYSICAL EXAMINATION: Blood pressure 133/69 with a pulse of 104, temperature 98.0. He is 87% on 85% FiO2. General description is an elderly male lying in bed in no distress. Respiratory system: Unlabored breathing, diminished breath sounds. No wheeze. Heart S1, S2 regular rate and rhythm. Abdomen soft, no tenderness. LABS: Hemoglobin is 14.3, white count 24.7. Creatinine is 1.92. Sputum is showing Gram- negative bacilli. DIAGNOSTIC IMPRESSION AND PLAN: Patient with acute respiratory failure, multifactorial, in patient admitted to hospital with COVID-19, subsequently with worsening of respiratory status, now with sputum showing Gram-negative. Patient is covered with cefepime; to continue along with respiratory support. Monitor his clinical course closely. EARLINEL / IJN: [id number] /
[2021-09-06 23:58] LABS: Glucose,Whole Blood 133 mg/dL (75-99)
[2021-09-07] MEDS: ARTIFICIAL TEARS-HYPROMELLOSE DROPS 15 ML BTL BOTH EYES SCH ×2 (00:36→03:17)
[2021-09-07] MEDS: INSULIN ASPART (NovoLOG) 100 UNIT/ML VIAL SQ SCH ×4 (00:38→17:56)
[2021-09-07 03:39] LABS: Albumin 2.3 g/dL (3.5-5.0); Calcium 8.2 mg/dL (8.4-10.2); Potassium 5.5 mmol/L (3.5-5.1); Total Bilirubin 0.4 mg/dL (0.2-1.3); Total Protein 5.1 g/dL (6.3-8.2)
[2021-09-07 05:20] LABS: Glucose,Whole Blood 136 mg/dL (75-99)
[2021-09-07 05:40] LABS: HCT 40.8 % (39.0-53.0); MCH 30.9 pg (25.0-35.0); MCHC 31.9 g/dL (31.0-37.0); MCV 96.9 fL (80.0-100.0); Mean Platelet Volume 9.2; Platelet Count 360 k/uL (150-450); RBC 4.21 m/uL (4.30-5.90); RDW 13.7 % (11.5-15.5); WBC 26.7 k/uL (3.8-10.6)
[2021-09-07 05:52] LABS: ABG Base Excess -3.1 mmol/L; ABG HCO3 24 mmol/L (21-25); ABG Oxygen Saturation 87.5 % (94-97); ABG PCO2 56 mmHg (35-45); ABG PH 7.25 (7.35-7.45); ABG TCO2 26 mmol/L (19-24); Allen Test Performed? Yes
[2021-09-07 05:57] LABS: ABG PO2 57 mmHg (83-108)
[2021-09-07] MEDS: NOREPINEPHRINE 32 MG in SODIUM CHLORIDE 0.9% 218 ML IV SCH (06:48)
[2021-09-07] MEDS: SYMBICORT 160-4.5 MCG INHALER INHALATION SCH (07:56)
[2021-09-07] MEDS: ALBUTEROL HFA INHALER INHALATION SCH ×4 (07:56→19:37)
[2021-09-07] MEDS: AMIODARONE 450 MG in DEXTROSE 5% IN WATER 250 ML IV SCH ×2 (08:12)
[2021-09-07] MEDS: CISATRACURIUM 200 MG in SODIUM CHLORIDE 0.9% 180 ML IV SCH (08:13)
--- NOTE | 2021-09-07 08:24 | P.PN ---
Subjective Progress Note Date: 09/07/21 76-year-old male, who presents to the emergency department, on August 30. The patient has a history of atrial fibrillation, hyperlipidemia, hypertension, and COPD, history of lung herniation, and that he was home O2, at 2 L as needed. The patient presents to the emergency department with complaints of increasing shortness of breath, and cough and the patient became progressively more hypoxic requiring high levels of oxygen initially went on high flow oxygen and ultimately the patient was intubated and placed on a mechanical ventilator as of 09/02/2001. The patient remains on a mechanical ventilator on assist control mode with a tidal volume of 500, FiO2 of 65%, PEEP of 15 and the rate of 28. The peak airway pressure is 33. Static pressures 27. At this point in time, the patient is intubated, sedated currently on propofol running at 60 g per program per minute, paralyzed with Nimbex at 1 mcg/kg per minute and the patient is on a NSS rate of 20 mL an hour. The patient is also hypotensive, currently on pressors and norepinephrine infusion is running at the rate of 0.16 g per /kg/ minute. The patient remains in atrial fibrillation. The patient was quite tachycardic with underlying atrial fibrillation. The patient is currently on amiodarone drip running at 0.5 micrograms per kilogram per minute and the patient is also on Cardizem drip at 5 mg an hour. His current heart rate is in order of 125 beats per minute, irregular. The chest x-ray showing diffuse bilateral pulmonary infiltrates more so in the lower lobes bilaterally. Orotracheal tube is in a good location. The patient has a left internal jugular triple-lumen catheter in place. Orogastric tube is also in place. He does have evidence of lung herniation on the left. The patient was started on enteral feeding for nutritional support and the patient is receiving vital AF at the rate of 15 mL an hour. The patient is currently on Decadron 6 mg IV every 24 hours. The patient is on long-term and correlation with Eliquis 5 mg by mouth twice a day. Blood work from today shows a sodium level of 1:30. This is improved compared to yesterday. The patient is developing acute kidney injury. Creatinine is up to 1.5 from a baseline of 1.06 and creatinine is up to 47. In terms of his inflammatory markers, LDH from 09/03/2021 was 1179 with a CRP of 20. His white cell count is up to 31.7. The patient is afebrile. Nevertheless, based on his underlying hypotension and new onset leukocytosis, a super infection is highly considered in this patient. His most recent pro- calcitonin level is 0.1 and this is from 08/30/2021 and this is to be repeated. The patient is not receiving any form of antibiotic coverage at this point in time. On today's evaluation of 09/06/2021, the patient is being seen for a follow-up. As of yesterday, I took the patient off paralytics and the patient is currently on propofol running at 70 mg/kg per minute. Is adequately sedated for now and his symptoms of the mechanical ventilator. He remains on the respirator with an assist-control mode at the rate of 28 and a tidal volume of 500 and FiO2 of 85% and a PEEP of 15. Peak airway pressure 31. Static pressure is 30. The chest x-ray showing diffuse bilateral pulmonary infiltrates consistent with coronary ventilated pneumonia. At the same time, orotracheal tube is in a good location. OG tube is also adequate location. No evidence of any subcutaneous emphysema. There is increased consolidation in the right lung base and the patient has a left IJ triple-lumen catheter in place. He remains on pressors and the patient is currently on norepinephrine running at 0.22 mcg/kg per minute. Yesterday, was concerned of a super infection. Cultures were sent and the patient was started on IV cefepime. He remains afebrile. White cell count is down to 24 which is improved compared to yesterday. His blood gases from today showing a pH of 7.21 with a pCO2 of 55 and pO2 of 58. He is currently on IV cefepime. Pending further blood cultures. Meanwhile, there is been some interval worsening his renal function. Creatinine is up to 1.9 with a BUN of 64. Sodium level is at 129. Overall fluid balance is in the order of 1.1 L positive over the past 24 hours. Not urine output was in the order of 900 mL since yesterday. The patient is receiving enteral feeding for nutritional support. He is on vital AF at the rate of 15 mL an hour. His white cell count is down to 24. Hemoglobin stable at 14. Sodium level is at 129. Serum bicarbs at 20. LDH level is down to 794 with a CRP of 37.4. He remains on Eliquis regarding his ongoing nature fibrillation. In terms of his A. fib, rate is under better control. He is on amiodarone running at 0.5 mg per minute and Cardizem drip running at 5 mg an hour. Otherwise, no other significant events. Condition remains quite critical at this point in time. 09/07/2021 the patient is being seen for a follow-up. On today's evaluation, I have the patient sedated with propofol and the patient is running at 70 mcg/kg per minute. He remains well sedated. He is calm and comfortable and suggested a mechanical ventilator. He continues to be on assist-control mode, the ventilator settings are essentially unchanged compared to yesterday. His weight is a 28 with a tidal volume of 500 and FiO2 of 85% with a PEEP of 15. The peak airway pressure is 35 on today's evaluation with metastatic tumor pressure of 32. The chest x-ray remains unchanged with diffuse bilateral pulmonary infiltrates. ET tube is in a good location. Blood gases from today showed a pH of 7.25 with a pCO2 of 56 and pO2 of 57 which is essentially compatible to yesterday. As such, no major interval change in his overall pulmonary status, or oxygenation. His sputum is growing gram-negative bacillus. Final culture are still pending. Meanwhile the patient is on IV cefepime. He has been afebrile and he spike a temperature of 100.5 today. He remains on IV cefepime. He is hemodynamically hypotensive still and the patient is still on pressors have been reduced compared to yesterday and currently on 0.15 mcg/kg per minute of norepinephrine infusion. Urine output is in order of 30 mL an hour. The patient has developed progressive renal failure. Creatinine is at 2.9 and the patient is unemployed positive fluid balance of 2.9 L. Nephrology is on the case. We are avoiding nephrotoxic agents. The patient was given a dose of Lasix yesterday with some limited response. He is receiving enteral feeding for nutritional support and currently is on vital AF at the rate of 15 mL an hour. His underlying cardiac rhythm is A. fib and the rate is around 110 and the skye ent remains on Cardizem drip at 5 mg an hour and the patient is also on by mouth amiodarone. Anticoagulations with Eliquis and the dose has to be modified bases underlying renal failure. Currently is receiving 5 mg twice a day and disability is down to 2.5 mg twice a day. Rest of the electrodes are stable. Inflammatory markers are pending from today. Note that his LDH was coming down and the last level was down to 784. Objective - Vital Signs Vital signs: Vital Signs Temp 100.5 F H 09/07/21 08:00 Pulse 112 H 09/07/21 08:00 Resp 21 09/07/21 08:00 BP 125/71 09/07/21 08:00 Pulse Ox 88 L 09/07/21 08:00 Intake & Output 09/06/21 09/07/21 09/07/21 18:59 06:59 18:59 Intake Total 2743.474 7958.323 38 Output Total 975 445 35 Balance 406.857 876.323 3 Weight 106.4 kg 107 kg Intake: IV 299 253 23 .9 299 253 23 Intake, IV Titration 1037.857 843.323 Amount Amiodarone 450 mg In 250 243.616 Dextrose 5% in Water 250 ml @ 0.5 MG/MIN 16.667 mls/hr IV .Q15H [facility] Rx#: [id number] Cefepime 2 gm In Sodium 100 Chloride 0.9% 100 ml @ 25 mls/hr IVPB Q12HR [facility] Rx #:[id number] Diltiazem 125 mg In 94.75 Sodium Chloride 0.9% 100 ml @ Per Protocol IV .Q0M [facility] Rx#:[id number] Norepinephrine 32 mg In 110.865 120.211 Sodium Chloride 0.9% 218 ml @ 0.05 MCG/KG/MIN 2. 416 mls/hr IV .Q24H [facility] Rx#:[id number] propofoL 1,000 mg In 482.242 479.496 Empty Bag 1 bag @ Titrate IV .Q0M [facility] Rx#: [id number] Tube Feeding 45 195 15 Other 30 Output: Urine 975 445 35 Other: Voiding Method Indwelling Catheter Indwelling Catheter Indwelling Catheter ABP, PAP, CO, CI - Last Documented Arterial Blood Pressure 113/58 - Exam No acute distress, currently sedated , with an orally placed endotracheal tube and NG tube. HEENT examination is grossly unremarkable. Neck supple. Full range of motion. No adenopathy thyromegaly or neck vein distention. Cardiovascular examination reveals regular rhythm rate. S1-S2 normal. No S3 or S4. No discernible murmur noted. Heart sounds are distant. Heart rate 122 bpm. Lungs reveal coarse bilateral rhonchi. No wheezes or crackles. Breath sounds equal. Abdomen soft with bowel sounds. No masses or tenderness. Extremities are intact. No cyanosis clubbing or edema. Skin is without rash or lesion. Neurologic examination cannot be adequately assessed as the patient is currently sedated - Labs CBC & Chem 7: 09/07/21 02:35 09/07/21 02:35 Labs: Abnormal Lab Results - Last 24 Hours (Table) 09/06/21 09/06/21 09/06/21 Range/Units 11:38 15:15 18:17 WBC (3.8-10.6) k/uL RBC (4.30-5.90) m/uL ABG pH (7.35-7.45) ABG pCO2 (35-45) mmHg ABG pO2 (83-108) mmHg ABG Total CO2 (19-24) mmol/L ABG O2 Saturation (94-97) % Sodium (137-145) mmol/L Potassium 5.2 H (3.5-5.1) mmol/L BUN (9-20) mg/dL Creatinine (0.66-1.25) mg/dL Glucose (74-99) mg/dL POC Glucose (mg/dL) 140 H 142 H (75-99) mg/dL Calcium (8.4-10.2) mg/dL Total Protein (6.3-8.2) g/dL Albumin (3.5-5.0) g/dL 09/06/21 09/07/21 09/07/21 Range/Units 23:57 02:35 02:35 WBC 26.7 H (3.8-10.6) k/uL RBC 4.21 L (4.30-5.90) m/uL ABG pH (7.35-7.45) ABG pCO2 (35-45) mmHg ABG pO2 (83-108) mmHg ABG Total CO2 (19-24) mmol/L ABG O2 Saturation (94-97) % Sodium 132 L (137-145) mmol/L Potassium 5.5 H (3.5-5.1) mmol/L BUN 87 H (9-20) mg/dL Creatinine 2.90 H (0.66-1.25) mg/dL Glucose 134 H (74-99) mg/dL POC Glucose (mg/dL) 133 H (75-99) mg/dL Calcium 8.2 L (8.4-10.2) mg/dL Total Protein 5.1 L (6.3-8.2) g/dL Albumin 2.3 L (3.5-5.0) g/dL 09/07/21 09/07/21 Range/Units 05:18 05:48 WBC (3.8-10.6) k/uL RBC (4.30-5.90) m/uL ABG pH 7.25 L (7.35-7.45) ABG pCO2 56 H (35-45) mmHg ABG pO2 57 L* (83-108) mmHg ABG Total CO2 26 H (19-24) mmol/L ABG O2 Saturation 87.5 L (94-97) % Sodium (137-145) mmol/L Potassium (3.5-5.1) mmol/L BUN (9-20) mg/dL Creatinine (0.66-1.25) mg/dL Glucose (74-99) mg/dL POC Glucose (mg/dL) 136 H (75-99) mg/dL Calcium (8.4-10.2) mg/dL Total Protein (6.3-8.2) g/dL Albumin (3.5-5.0) g/dL Microbiology - Last 24 Hours (Table) 09/06/21 03:18 Gram Stain - Preliminary Sputum Sputum Culture - Preliminary 09/05/21 15:57 Blood Culture - Preliminary Blood No Growth after 24 hours 09/05/21 15:56 Blood Culture - Preliminary Blood No Growth after 24 hours 09/03/21 01:22 Gram Stain - Preliminary Sputum Sputum Culture - Preliminary Gram Neg Bacilli Assessment and Plan Plan: 1 Acute hypoxemic respiratory failure, secondary to coronavirus COVID 19 - associated pneumonia. Status post intubation and mechanical ventilation, on 09/02/2021, for worsening hypoxemic respiratory failure. The patient remains intubated on a mechanical ventilator. Chest x-ray findings are essentially the same with diffuse but the pulmonary infiltrates. The patient will be kept on the same treatment. The patient on Decadron. The patient will be kept sedated. No ventilator changes for today. There is a gram-negative bacillus in the sputum and the patient is currently on IV cefepime. There may be a superinfection with gram-negative bacteria with secondary sepsis and hypotension. Pressor requirements improved compared to yesterday. The patient is headed towards an acute kidney injury with worsening renal function over the past 24-48 hours. 2 History of atrial fibrillation. The age of fibrillation rate is controlled and the patient is on a Cardizem drip at 5 mg an hour in addition to oral anticoagulation and oral amiodarone. 3 systolic heart failure with an ejection fraction 40-45% 4 Sepsis with hypotension currently on pressors with norepinephrine infusion running at 0.15 mcg/kg per minute. 5 COPD, with chronic hypoxemic respiratory failure. 6 acute kidney injury and the patient's progressive worsening renal function and creatinine is up to 2.9, rule out community related ATN. 7 Mnire's disease. 8 obstructive sleep apnea syndrome. Not utilizing or nontolerant to CPAP therapy on outpatient basis 9 Valvular heart disease. Please refer to the most recent echocardiogram. Ejection fraction is 40-45%.No significant valvular abnormalities based on the most recent echo the 10 Status post left thoracotomy for closure of diaphragmatic hernia. 11 history of hypertension 12 history of hyperlipidemia 13 BPH Plan: Continue ventilator support. No ventilator changes today Continue sedation with propofol Monitor renal function Continue IV cefepime 2 g every 12 hours Continue Decadron Wean off pressors if possible currently on 0.15 mcg/kg per minute of norepinephrine infusion Repeat inflammatory markers for tomorrow including LDH and CRP continue anticoagulation with Eliquis and change the dose to 2.5 mg twice a day Discontinue the Cardizem drip Continue oral amiodarone Monitor renal function Continue enteral feeding for nutritional support Condition is obvious the critical and outcomes poor baseline above-mentioned comorbidities. We'll continue to follow, critical care evaluation more than 30 minutes. Time with Patient: Greater than 30
--- NOTE | 2021-09-07 08:54 | P.PN ---
Subjective Patient is seen in follow-up for acute kidney injury and hyponatremia. Sodium level 132 today. Renal function worsening. Creatinine 2.90 today. Receiving tube feeds. Urine output 30-50 mL an hour. On Levophed. Remains on Cardizem drip for A. fib. On oral amiodarone as well. On 85% FiO2. Vital signs are stable. On vasopressor support. HEENT: Intubated. Tachycardic. No edema. Breath sounds decreased. Objective - Vital Signs Vital signs: Vital Signs Temp 100.5 F H 09/07/21 08:00 Pulse 112 H 09/07/21 08:00 Resp 21 09/07/21 08:00 BP 125/71 09/07/21 08:00 Pulse Ox 88 L 09/07/21 08:00 Intake & Output 09/06/21 09/07/21 09/07/21 18:59 06:59 18:59 Intake Total 8805.518 0626.323 38 Output Total 975 445 35 Balance 406.857 876.323 3 Weight 106.4 kg 107 kg Intake: IV 299 253 23 .9 299 253 23 Intake, IV Titration 1037.857 843.323 Amount Amiodarone 450 mg In 250 243.616 Dextrose 5% in Water 250 ml @ 0.5 MG/MIN 16.667 mls/hr IV .Q15H [facility] Rx#: [id number] Cefepime 2 gm In Sodium 100 Chloride 0.9% 100 ml @ 25 mls/hr IVPB Q12HR [facility] Rx #:[id number] Diltiazem 125 mg In 94.75 Sodium Chloride 0.9% 100 ml @ Per Protocol IV .Q0M [facility] Rx#:[id number] Norepinephrine 32 mg In 110.865 120.211 Sodium Chloride 0.9% 218 ml @ 0.05 MCG/KG/MIN 2. 416 mls/hr IV .Q24H [facility] Rx#:[id number] propofoL 1,000 mg In 482.242 479.496 Empty Bag 1 bag @ Titrate IV .Q0M [facility] Rx#: [id number] Tube Feeding 45 195 15 Other 30 Output: Urine 975 445 35 Other: Voiding Method Indwelling Catheter Indwelling Catheter Indwelling Catheter ABP, PAP, CO, CI - Last Documented Arterial Blood Pressure 113/58 - Labs CBC & Chem 7: 09/07/21 02:35 09/07/21 02:35 Labs: Abnormal Lab Results - Last 24 Hours (Table) 09/06/21 09/06/21 09/06/21 Range/Units 11:38 15:15 18:17 WBC (3.8-10.6) k/uL RBC (4.30-5.90) m/uL ABG pH (7.35-7.45) ABG pCO2 (35-45) mmHg ABG pO2 (83-108) mmHg ABG Total CO2 (19-24) mmol/L ABG O2 Saturation (94-97) % Sodium (137-145) mmol/L Potassium 5.2 H (3.5-5.1) mmol/L BUN (9-20) mg/dL Creatinine (0.66-1.25) mg/dL Glucose (74-99) mg/dL POC Glucose (mg/dL) 140 H 142 H (75-99) mg/dL Calcium (8.4-10.2) mg/dL Total Protein (6.3-8.2) g/dL Albumin (3.5-5.0) g/dL 09/06/21 09/07/21 09/07/21 Range/Units 23:57 02:35 02:35 WBC 26.7 H (3.8-10.6) k/uL RBC 4.21 L (4.30-5.90) m/uL ABG pH (7.35-7.45) ABG pCO2 (35-45) mmHg ABG pO2 (83-108) mmHg ABG Total CO2 (19-24) mmol/L ABG O2 Saturation (94-97) % Sodium 132 L (137-145) mmol/L Potassium 5.5 H (3.5-5.1) mmol/L BUN 87 H (9-20) mg/dL Creatinine 2.90 H (0.66-1.25) mg/dL Glucose 134 H (74-99) mg/dL POC Glucose (mg/dL) 133 H (75-99) mg/dL Calcium 8.2 L (8.4-10.2) mg/dL Total Protein 5.1 L (6.3-8.2) g/dL Albumin 2.3 L (3.5-5.0) g/dL 09/07/21 09/07/21 Range/Units 05:18 05:48 WBC (3.8-10.6) k/uL RBC (4.30-5.90) m/uL ABG pH 7.25 L (7.35-7.45) ABG pCO2 56 H (35-45) mmHg ABG pO2 57 L* (83-108) mmHg ABG Total CO2 26 H (19-24) mmol/L ABG O2 Saturation 87.5 L (94-97) % Sodium (137-145) mmol/L Potassium (3.5-5.1) mmol/L BUN (9-20) mg/dL Creatinine (0.66-1.25) mg/dL Glucose (74-99) mg/dL POC Glucose (mg/dL) 136 H (75-99) mg/dL Calcium (8.4-10.2) mg/dL Total Protein (6.3-8.2) g/dL Albumin (3.5-5.0) g/dL Microbiology - Last 24 Hours (Table) 09/06/21 03:18 Gram Stain - Preliminary Sputum Sputum Culture - Preliminary 09/05/21 15:57 Blood Culture - Preliminary Blood No Growth after 24 hours 09/05/21 15:56 Blood Culture - Preliminary Blood No Growth after 24 hours 09/03/21 01:22 Gram Stain - Preliminary Sputum Sputum Culture - Preliminary Gram Neg Bacilli Assessment and Plan Plan: Assessment: 1. Hypovolemic hyponatremia improved with IV hydration. Also component of SIADH from respiratory infection. Sodium level 132 today. Urine osmolality 380. 2. Acute kidney injury secondary to ATN secondary to hypotension and sepsis. Creatinine 2.9 today. 3. A. fib with RVR maintained on oral amiodarone and Cardizem drip. 4. COVID-19 pneumonia. Intubated. On 85% FiO2. 5. Metabolic acidosis secondary to acute kidney injury. Also has respiratory acidosis. Better. 6. Acute hypoxic respiratory failure. 7. Hyperkalemia secondary to acute kidney injury. Stable. Plan: Status post IV Lasix given overnight. Hold off on diuretics today. Wean FiO2 and vasopressors. Maintain tube feeds. Receiving minimal free water. Consider Nepro - discussed with nurse. Continue to monitor renal function and urine output. Repeat potassium level this evening.
[2021-09-07] MEDS: PANTOPRAZOLE 40 MG/10 ML VIAL IVP SCH (08:59)
[2021-09-07] MEDS: CHOLECALCIFEROL 25 MCG (1000 IU) TABLET PO SCH (08:59)
[2021-09-07] MEDS: AMIODARONE 200 MG TAB PO SCH ×2 (08:59→20:11)
[2021-09-07] MEDS: CEFEPIME 2 GM in SODIUM CHLORIDE 0.9% 100 ML IVPB SCH (08:59)
[2021-09-07] MEDS: CHLORHEXIDINE GLUCONATE 15 ML CUP MUCOUS MEM SCH ×2 (08:59→20:12)
[2021-09-07] MEDS: APIXABAN 2.5 MG TABLET PO SCH ×2 (08:59→20:11)
[2021-09-07] MEDS: DEXAMETHASONE SOD PHOSPHATE 10 MG/ML 1 ML VIAL IVP SCH (09:00)
[2021-09-07] MEDS: ASCORBIC ACID 500 MG TAB PO SCH (09:00)
[2021-09-07] MEDS: ZINC SULFATE 220 MG CAP PO SCH (09:00)
[2021-09-07] MEDS: SODIUM BICARBONATE TAB 650 MG TAB PO SCH ×2 (09:00→20:11)
--- NOTE | 2021-09-07 09:31 | XR ---
EXAMINATION TYPE: XR chest 1V portable DATE OF EXAM: 09/07/2021 COMPARISON: 09/06/2021 HISTORY: Shortness of breath TECHNIQUE: Single frontal view of the chest is obtained. FINDINGS: Diffuse bilateral airspace disease and small effusion stable. ET and NG tube stable. Left- sided central line stable. No pneumothorax. Heart size normal. Hypertrophic and degenerative change o f the spine. Underlying COPD suspected IMPRESSION: Correlate for a diffuse interstitial pneumonia or ARDS. CHF not excluded correlate clinically.
[2021-09-07 10:11] LABS: Band Neutrophils % 3 %; Lymphocytes # (M) 0.53 k/uL (1.0-4.8); Metamyelocytes # (M) 0.27 k/uL (0); Metamyelocytes % 1 %; Myelocytes # (M) 0.53 k/uL (0); Myelocytes % 2 %; Neutrophils % (M) 90 %; Nucleated Red Blood Cells 0 /100 WBC (0-0); Total Cells Counted 200
[2021-09-07 11:38] LABS: Glucose,Whole Blood 128 mg/dL (75-99)
[2021-09-07] MEDS: ACETAMINOPHEN TAB 325 MG TAB PO PRN (12:02)
[2021-09-07] MEDS: bisacodyL 10 MG SUPP RECTAL PRN (12:02)
--- NOTE | 2021-09-07 15:45 | P.PN ---
Subjective Progress Note Date: 09/07/21 This 76-year-old gentleman is admitted to hospital with Covid pneumonia and hypoxia requiring intubation and respiratory support. We're asked to see the patient because of recurrent atrial fibrillation. Patient was initially initiated on amiodarone with conversion to sinus rhythm. He was switched to by mouth amiodarone, but subsequently went back into atrial fibrillation. He was restarted on amiodarone drip and also Cardizem drip. He still has severe hypoxia. His echo showed an ejection fraction of 4045%. There is some suggestion that could be component of CHF. Patient has been hypotensive and septic. He is on nor epinephrine. We'll continue his amiodarone drip per overnight. If stable, will switch to by mouth amiodarone tomorrow. Overall his prognosis is guarded. 09/06/2021: This patient remains intubated. Still in atrial fibrillation with controlled ventricular response with heart rates in 82 to 100 range. Patient chest x-ray still shows picture of pneumonia and ARDS and his ABGs still show hypoxia and hypercapnia. His creatinine is 1.92. From cardiac standpoint, we can stop the amiodarone drip and start him on by mouth amiodarone 400 mg by mouth twice a day. Subsequently at times will be made to wean off Cardizem. 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 Prognosis is guarded. 09/07/2021: This patient continues to be on ventilator support with chest x-ray showing ARDS picture. Patient is also on pressors but seemed to be unless the dose. His kidney function is deteriorating. Patient remains in atrial fibrillation with fairly controlled and corresponds with heart rates between 90- 110. He is on by mouth amiodarone and also IV Cardizem. Hopefully as pulmonary status improves, his heart rate control becomes better. We'll continue current medical therapy. We'll follow Objective - Vital Signs Vital signs: Vital Signs Temp 100.4 F H 09/07/21 12:00 Pulse 129 H 09/07/21 14:30 Resp 28 H 09/07/21 14:30 BP 122/80 09/07/21 14:30 Pulse Ox 87 L 09/07/21 14:30 Intake & Output 09/06/21 09/07/21 09/07/21 18:59 06:59 18:59 Intake Total 0466.267 2265.323 931.528 Output Total 975 445 255 Balance 406.857 876.323 676.528 Weight 106.4 kg 107 kg 107 kg Intake: IV 299 253 183 .9 299 253 183 Intake, IV Titration 1037.857 843.323 533.528 Amount Amiodarone 450 mg In 250 243.616 Dextrose 5% in Water 250 ml @ 0.5 MG/MIN 16.667 mls/hr IV .Q15H [facility] Rx#: [id number] Cefepime 2 gm In Sodium 100 Chloride 0.9% 100 ml @ 25 mls/hr IVPB Q12HR [facility] Rx #:[id number] Diltiazem 125 mg In 94.75 114.833 Sodium Chloride 0.9% 100 ml @ Per Protocol IV .Q0M [facility] Rx#:[id number] Norepinephrine 32 mg In 110.865 120.211 55.253 Sodium Chloride 0.9% 218 ml @ 0.05 MCG/KG/MIN 2. 416 mls/hr IV .Q24H [facility] Rx#:[id number] propofoL 1,000 mg In 482.242 479.496 363.442 Empty Bag 1 bag @ Titrate IV .Q0M [facility] Rx#: [id number] Tube Feeding 45 195 95 Other 30 120 Output: Urine 975 445 255 Other: Voiding Method Indwelling Catheter Indwelling Catheter Indwelling Catheter ABP, PAP, CO, CI - Last Documented Arterial Blood Pressure 127/65 - Exam Patient is not personally examined. Information is gathered from consult and notes. For further information could be gathered from pricing consultant notes - Labs CBC & Chem 7: 09/07/21 02:35 09/07/21 02:35 Labs: Abnormal Lab Results - Last 24 Hours (Table) 09/06/21 09/06/21 09/06/21 Range/Units 15:15 18:17 23:57 WBC (3.8-10.6) k/uL RBC (4.30-5.90) m/uL Neutrophils # (Manual) (1.3-7.7) k/uL Lymphocytes # (Manual) (1.0-4.8) k/uL Metamyelocytes # (Man) (0) k/uL Myelocytes # (Manual) (0) k/uL ABG pH (7.35-7.45) ABG pCO2 (35-45) mmHg ABG pO2 (83-108) mmHg ABG Total CO2 (19-24) mmol/L ABG O2 Saturation (94-97) % Sodium (137-145) mmol/L Potassium 5.2 H (3.5-5.1) mmol/L BUN (9-20) mg/dL Creatinine (0.66-1.25) mg/dL Glucose (74-99) mg/dL POC Glucose (mg/dL) 142 H 133 H (75-99) mg/dL Calcium (8.4-10.2) mg/dL Total Protein (6.3-8.2) g/dL Albumin (3.5-5.0) g/dL 09/07/21 09/07/21 09/07/21 Range/Units 02:35 02:35 05:18 WBC 26.7 H (3.8-10.6) k/uL RBC 4.21 L (4.30-5.90) m/uL Neutrophils # (Manual) 24.80 H (1.3-7.7) k/uL Lymphocytes # (Manual) 0.53 L (1.0-4.8) k/uL Metamyelocytes # (Man) 0.27 H (0) k/uL Myelocytes # (Manual) 0.53 H (0) k/uL ABG pH (7.35-7.45) ABG pCO2 (35-45) mmHg ABG pO2 (83-108) mmHg ABG Total CO2 (19-24) mmol/L ABG O2 Saturation (94-97) % Sodium 132 L (137-145) mmol/L Potassium 5.5 H (3.5-5.1) mmol/L BUN 87 H (9-20) mg/dL Creatinine 2.90 H (0.66-1.25) mg/dL Glucose 134 H (74-99) mg/dL POC Glucose (mg/dL) 136 H (75-99) mg/dL Calcium 8.2 L (8.4-10.2) mg/dL Total Protein 5.1 L (6.3-8.2) g/dL Albumin 2.3 L (3.5-5.0) g/dL 09/07/21 09/07/21 Range/Units 05:48 11:36 WBC (3.8-10.6) k/uL RBC (4.30-5.90) m/uL Neutrophils # (Manual) (1.3-7.7) k/uL Lymphocytes # (Manual) (1.0-4.8) k/uL Metamyelocytes # (Man) (0) k/uL Myelocytes # (Manual) (0) k/uL ABG pH 7.25 L (7.35-7.45) ABG pCO2 56 H (35-45) mmHg ABG pO2 57 L* (83-108) mmHg ABG Total CO2 26 H (19-24) mmol/L ABG O2 Saturation 87.5 L (94-97) % Sodium (137-145) mmol/L Potassium (3.5-5.1) mmol/L BUN (9-20) mg/dL Creatinine (0.66-1.25) mg/dL Glucose (74-99) mg/dL POC Glucose (mg/dL) 128 H (75-99) mg/dL Calcium (8.4-10.2) mg/dL Total Protein (6.3-8.2) g/dL Albumin (3.5-5.0) g/dL Microbiology - Last 24 Hours (Table) 09/06/21 03:18 Gram Stain - Preliminary Sputum Sputum Culture - Preliminary Gram Neg Bacilli 09/03/21 01:22 Gram Stain - Final Sputum Sputum Culture - Final Pseudomonas aeruginosa 09/05/21 15:57 Blood Culture - Preliminary Blood No Growth after 24 hours 09/05/21 15:56 Blood Culture - Preliminary Blood No Growth after 24 hours Assessment and Plan (1) Acute respiratory failure due to COVID-19 Current Visit: Yes Status: Acute Code(s): U07.1 - COVID-19; J96.00 - ACUTE RESPIRATORY FAILURE, UNSP W HYPOXIA OR HYPERCAPNIA SNOMED Code(s): 601010140 (2) Hyponatremia Current Visit: Yes Status: Acute Code(s): E87.1 - HYPO-OSMOLALITY AND HYPONATREMIA SNOMED Code(s): 25582902 (3) Acute exacerbation of chronic obstructive airways disease Current Visit: No Status: Acute Code(s): J44.1 - CHRONIC OBSTRUCTIVE PULMONARY DISEASE W (ACUTE) EXACERBATION SNOMED Code(s): 269535760 (4) Diaphragmatic hernia Current Visit: No Status: Acute Code(s): K44.9 - DIAPHRAGMATIC HERNIA WITHOUT OBSTRUCTION OR GANGRENE SNOMED Code(s): 43369871 (5) Paroxysmal atrial fibrillation Current Visit: No Status: Acute Code(s): I48.0 - PAROXYSMAL ATRIAL FIBRILLATION SNOMED Code(s): 046764265 Plan: Continue by mouth amiodarone and IV Cardizem. 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 Will follow
[2021-09-07] MEDS ORDERED: DEXTROSE 50% SYRINGE 50 ML IVP STA ×2 (16:24→21:24)
[2021-09-07] MEDS ORDERED: SODIUM BICARB 8.4% 50 ML SYR (1 MEQ/ML) IV STA ×2 (16:25→21:25)
[2021-09-07] MEDS ORDERED: INSULIN REGULAR 100 UNIT/ML VIAL (IV) IV ONE ×2 (16:30→21:24)
[2021-09-07] MEDS ORDERED: SODIUM BICARB 8.4% 50 ML SYR (1 MEQ/ML) ONE (16:32)
--- NOTE | 2021-09-07 16:44 | P.PN ---
Subjective Progress Note Date: 09/07/21 76-year-old pleasant male with known history of COPD with suicidal dysfunction at home given with complaints of shortness of breath cough without any sputum production going on for about one and half week. Patient did did get vaccinated for Covid and found to have Covid 19 pneumonia chest x-ray did not show any significant infiltrate. Patient denied any chest pain abdominal pain, diarrhea or nausea or vomiting. Patient is on Augmentin not sure why he is taking Augmentin as an outpatient. Patient is presently on 5 L of oxygen saturating at 95% and patient was having fevers with temperature of 100.6. Patient is also hyponatremic and is on hydrochlorothiazide at home. Patient was started on Dec adron. D-dimer is within normal limits 08/31/2021 Patient is seen and evaluated in follow-up with no acute overnight issues. Patient normally wears 2 L of oxygen as needed at night in the outpatient setting and currently continues on 5 L. Discussed with nursing staff about weaning FiO2 as tolerated. Pulmonary and infectious disease following an patient is maintained on bronchodilators along with vitamin and zinc supplements and has been started on IV dexamethasone and Lovenox subcutaneous injections. Patient continues on gentle IV hydration at 75 ML per hour and will continue for now. Patient was hyponatremic at 125 and today's sodium level is 129. 09/01/2021 Patient is seen in follow-up this morning and overnight developed progressing worsening shortness of breath and currently on 15 L high flow nasal cannula. Nursing staff patient continues to remove oxygen and dropping down into the 70s and 80s oxygen saturation. Patient continues with a cough and rhonchi noted throughout on exam. Sodium level has dropped back down to 125 and will consult nephrology. Patient is extremely hard of hearing. Chest x-ray today shows interstitial and patchy left-sided infiltrates that are mildly progressed. Pulmonary and infectious disease following as well. 09/02/2021 Patient is seen in follow-up this morning with worsening respirations and difficulty in breathing and maintained on 15 L high flow along with nonrebreather and working to breathe with continued cough. Pulmonary and infectious disease following closely and patient started on Baricitinib and maintained on vitamin and zinc supplements along with Lovenox and IV dexamethasone and will continue. Patient being transitioned to Airvo with respiratory following closely as well. Discussed CODE STATUS with the patient and he wishes to remain full code. Nephrology also consulted for hyponatremia and IV fluids have been discontinued and patient is receiving a dose of IV Lasix today. 09/03/2021 Patient is seen in the ICU. Yesterday evening around 6 o'clock patient's condition has deteriorated and rapid response team was called and the patient was in A. fib with RVR and subsequently had worsening difficulty in breathing and required stat intubation with transfer to the ICU. He is currently on a ventilator. ABGs from this morning showing pH of 7.24, PCO2 of 47 and PO2 of 121 on 100% FiO2. Patient's blood pressure running on the lower side and he is on Levophed and amiodarone drip. He is sedated. 09/04/2021 Patient is seen and examined in the ICU. Patient continues to be on mechanical ventilator requiring 65% FiO2 with a PEEP of 15 saturating at low 90s. Patient continues to be on Levophed, to maintain a map of about 65. Lovenox has been discontinued and patient is started on Eliquis for anticoagulation in view of his atrial fibrillation. On 09/05/2021 Patient is seen and examined in the ICU. Patient is intubated and mechanically ventilated. Patient has been in and out of atrial fibrillation, currently A. fib with rapid RVR. He is being maintained on Cardizem drip and he is on Eliquis for anticoagulation. On reviewing the vitals blood pressure 109 x 72. Reviewed ABGs from this morning showing pH of 7.24, PCO2 54, PO2 of 59. He is on 65% FiO2 with PEEP of 15 saturating around 90%. On reviewing his labs from this morning white count of 13.1, hemoglobin 14.9, platelets 311. Sodium 130, potassium 4.9, chloride 103, bicarb 21, BUN 47, creatinine 1.53. 09/06/2021 Patient is seen and evaluated in follow-up continues to be closely monitored in the ICU with multiple medical consultations following including pulmonary, cardiology, nephrology. Patient is intubated and sedated. Patient on multiple drips including propofol for sedation, norepinephrine, Cardizem, amiodarone, IV cefepime. Patient was given a dose of IV Lasix today and is maintained on sodium bicarb tablets with nephrology following closely. Prognosis remains extremely guarded. Patient is also maintained on IV cefepime and white blood count trending down although continues to be elevated and patient has been having intermittent low-grade temps and continues to be in A. fib with RVR. Kidney functions worsening in creatinine elevated at 1.19 today. 09/07/2021 Patient is Seen and evaluated and follow-up this morning in the ICU being closely monitored with multiple medical consultations following. Patient contin ues to be intubated and sedated. Patient has been off Cardizem drip and transition to oral amiodarone with cardiology following closely. Patient continues on Eliquis for anticoagulation along with IV dexamethasone, propofol, IV cefepime, norepinephrine. Nimbex is also been discontinued. Patient's kidney functions continue to worsen and nephrology is following closely. Sodium slightly improved at 132. Potassium was 5.5 and repeat potassium was 6.1 and will correct. Labs: White blood count is 26.7, hemoglobin is 13.0, platelets are 360, sodium is 132, potassium is 5.5, BUN is 87, creatinine is 2.9 Review of systems: unable to obtain as patient is intubated and sedated All medications have been reviewed Active Medications Acetaminophen (Acetaminophen Tab 325 Mg Tab) 650 mg PO Q6HR PRN PRN Reason: Mild Pain or Fever > 100.5 Last Admin: 09/07/21 12:02 Dose: 650 mg Documented by: Albuterol Sulfate (Albuterol Hfa Inhaler) 2 puff INHALATION RT-QID PRN PRN Reason: Shortness Of Breath Or Wheezing Albuterol Sulfate (Albuterol Hfa Inhaler) 2 puff INHALATION RT-QID [facility] Last Admin: 09/07/21 15:33 Dose: 2 puff Documented by: Albuterol/Ipratropium (Ipratropium-Albuterol 3 Ml Neb) 3 ml INHALATION RT-QID PRN PRN Reason: Shortness Of Breath Or Wheezing Amiodarone HCl (Amiodarone 200 Mg Tab) 400 mg PO BID [facility] Last Admin: 09/07/21 08:59 Dose: 400 mg Documented by: Apixaban (Apixaban 2.5 Mg Tablet) 2.5 mg PO BID [facility]; Protocol Last Admin: 09/07/21 08:59 Dose: 2.5 mg Documented by: Ascorbic Acid (Ascorbic Acid 500 Mg Tab) 500 mg PO DAILY [facility] Last Admin: 09/07/21 09:00 Dose: 500 mg Documented by: Bisacodyl (Bisacodyl 10 Mg Supp) 10 mg RECTAL DAILY PRN PRN Reason: Constipation Last Admin: 09/07/21 12:02 Dose: 10 mg Documented by: Chlorhexidine Gluconate (Chlorhexidine Gluconate 15 Ml Cup) 15 ml MUCOUS MEM BID [facility] Last Admin: 09/07/21 08:59 Dose: 15 ml Documented by: Cholecalciferol (Cholecalciferol 25 Mcg (1000 Iu) Tablet) 100 mcg PO DAILY [facility] Last Admin: 09/07/21 08:59 Dose: 100 mcg Documented by: Dexamethasone Sodium Phosphate (Dexamethasone Sod Phosphate 10 Mg/Ml 1 Ml Vial) 6 mg IVP DAILY [facility] Last Admin: 09/07/21 09:00 Dose: 6 mg Documented by: Propofol 1,000 mg/ IV Solution 100 mls @ 0 mls/hr IV .Q0M [facility]; Protocol Last Titration: 09/07/21 16:02 Dose: 60 mcg/kg/min, 38.52 mls/hr Documented by: Norepinephrine Bitartrate 32 (mg/ Sodium Chloride) 250 mls @ 2.416 mls/hr IV .Q24H [facility]; Protocol Last Titration: 09/07/21 15:29 Dose: 0.1 mcg/kg/min, 4.833 mls/hr Documented by: Cefepime HCl 1 gm/ Sodium (Chloride) 50 mls @ 12.5 mls/hr IVPB Q12HR [facility] Insulin Aspart (Insulin Aspart (Novolog) 100 Unit/Ml Vial) 0 unit SQ Q6H [facility]; Protocol Last Admin: 09/07/21 12:40 Dose: Not Given Documented by: Pantoprazole Sodium (Pantoprazole 40 Mg/10 Ml Vial) 40 mg IVP DAILY [facility] Last Admin: 09/07/21 08:59 Dose: 40 mg Documented by: Pravastatin Sodium (Pravastatin Sodium 20 Mg Tab) 10 mg PO HS [facility] Last Admin: 09/06/21 20:43 Dose: 10 mg Documented by: Sodium Bicarbonate (Sodium Bicarbonate Tab 650 Mg Tab) 650 mg PO BID [facility] Last Admin: 09/07/21 09:00 Dose: 650 mg Documented by: Zinc Sulfate (Zinc Sulfate 220 Mg Cap) 220 mg PO DAILY [facility] Last Admin: 09/07/21 09:00 Dose: 220 mg Documented by: PHYSICAL EXAMINATION: GENERAL: intubated in the ICU, and sedated. Temp is 100.4F, pulse is 112, respirations are 28, blood pressure is 125/83, arterial pressure is 118/61, ox ygen saturation is 88% on 85% FiO2 mechanical vent HEENT: Pupils are round . EOMI. No scleral icterus. No conjunctival pallor. OG tube in place. CARDIOVASCULAR: S1 and S2 muffled, irregular PULMONARY: Diminished breath sounds with scattered coarse rhonchi and crackles noted bilaterally ABDOMEN: Soft, nontender, nondistended, normoactive bowel sounds. No palpable organomegaly. MUSCULOSKELETAL: No joint swelling or deformity. EXTREMITIES: No cyanosis, clubbing, or pedal edema. Muscle wasting noted NEUROLOGICAL: sedated SKIN: No rashes. Assessment and plan: -Covid 19 pneumonia -Acute on chronic Hypoxic respiratory failure secondary to above requiring mechanical ventilation -Hyponatremia, improving -Hyperkalemia -Acute kidney injury with oliguria -Atrial fibrillation with RVR -History of paroxysmal atrial fibrillation -Chronic hypercapnic respiratory failure secondary to COPD with mild acute exacerbation -Hypertension -Hyperlipidemia -Muscle wasting -Benign prostatic hypertrophy -DVT prophylaxis: Lovenox -GI prophylaxis -Full code Plan: Recommend to continue with current medications and management. Infectious disease, cardiology, nephrology, and pulmonary following. Patient continues on IV antibiotics in the form of cefepime a sputum culture showing pseudomonas aeruginosa and repeat sputum culture preliminary showing gram-negative bacilli. Patient currently on mechanical vent intubated and sedated and cardiology making adjustments to medications patient is currently rate controlled on oral amiodarone and Cardizem and index have been discontinued. Patient continues on propofol for sedation along with IV dexamethasone and norepinephrine. Patient also continues on vitamin and zinc supplements along with oral anticoagulant with Eliquis. Nephrology also following closely and maintain on sodium bicarb tablets as kidney functions continue to worsen. Potassium elevated and will correct and repeat a.m. labs Chest x-ray today shows correlate for diffuse interstitial pneumonia or ARDS CHF not excluded. Due to multiple complex medical issues, Prognosis is extremely guarded. Objective - Vital Signs Vital signs: Vital Signs Temp 100.5 F H 09/07/21 08:00 Pulse 112 H 09/07/21 08:00 Resp 21 09/07/21 08:00 BP 125/71 09/07/21 08:00 Pulse Ox 88 L 09/07/21 08:00 Intake & Output 09/06/21 09/07/2121 18:59 06:59 18:59 Intake Total 9661.858 0699.323 38 Output Total 975 445 35 Balance 406.857 876.323 3 Weight 106.4 kg 107 kg Intake: IV 299 253 23 .9 299 253 23 Intake, IV Titration 1037.857 843.323 Amount Amiodarone 450 mg In 250 243.616 Dextrose 5% in Water 250 ml @ 0.5 MG/MIN 16.667 mls/hr IV .Q15H [facility] Rx#: [id number] Cefepime 2 gm In Sodium 100 Chloride 0.9% 100 ml @ 25 mls/hr IVPB Q12HR [facility] Rx #:[id number] Diltiazem 125 mg In 94.75 Sodium Chloride 0.9% 100 ml @ Per Protocol IV .Q0M [facility] Rx#:[id number] Norepinephrine 32 mg In 110.865 120.211 Sodium Chloride 0.9% 218 ml @ 0.05 MCG/KG/MIN 2. 416 mls/hr IV .Q24H [facility] Rx#:[id number] propofoL 1,000 mg In 482.242 479.496 Empty Bag 1 bag @ Titrate IV .Q0M [facility] Rx#: [id number] Tube Feeding 45 195 15 Other 30 Output: Urine 975 445 35 Other: Voiding Method Indwelling Catheter Indwelling Catheter Indwelling Catheter ABP, PAP, CO, CI - Last Documented Arterial Blood Pressure 113/58 - Labs CBC & Chem 7: 09/07/21 02:35 09/07/21 02:35 Labs: Abnormal Lab Results - Last 24 Hours (Table) 09/06/21 09/06/21 09/06/21 Range/Units 11:38 15:15 18:17 WBC (3.8-10.6) k/uL RBC (4.30-5.90) m/uL ABG pH (7.35-7.45) ABG pCO2 (35-45) mmHg ABG pO2 (83-108) mmHg ABG Total CO2 (19-24) mmol/L ABG O2 Saturation (94-97) % Sodium (137-145) mmol/L Potassium 5.2 H (3.5-5.1) mmol/L BUN (9-20) mg/dL Creatinine (0.66-1.25) mg/dL Glucose (74-99) mg/dL POC Glucose (mg/dL) 140 H 142 H (75-99) mg/dL Calcium (8.4-10.2) mg/dL Total Protein (6.3-8.2) g/dL Albumin (3.5-5.0) g/dL 09/06/21 09/07/21 09/07/21 Range/Units 23:57 02:35 02:35 WBC 26.7 H (3.8-10.6) k/uL RBC 4.21 L (4.30-5.90) m/uL ABG pH (7.35-7.45) ABG pCO2 (35-45) mmHg ABG pO2 (83-108) mmHg ABG Total CO2 (19-24) mmol/L ABG O2 Saturation (94-97) % Sodium 132 L (137-145) mmol/L Potassium 5.5 H (3.5-5.1) mmol/L BUN 87 H (9-20) mg/dL Creatinine 2.90 H (0.66-1.25) mg/dL Glucose 134 H (74-99) mg/dL POC Glucose (mg/dL) 133 H (75-99) mg/dL Calcium 8.2 L (8.4-10.2) mg/dL Total Protein 5.1 L (6.3-8.2) g/dL Albumin 2.3 L (3.5-5.0) g/dL 09/07/21 09/07/21 Range/Units 05:18 05:48 WBC (3.8-10.6) k/uL RBC (4.30-5.90) m/uL ABG pH 7.25 L (7.35-7.45) ABG pCO2 56 H (35-45) mmHg ABG pO2 57 L* (83-108) mmHg ABG Total CO2 26 H (19-24) mmol/L ABG O2 Saturation 87.5 L (94-97) % Sodium (137-145) mmol/L Potassium (3.5-5.1) mmol/L BUN (9-20) mg/dL Creatinine (0.66-1.25) mg/dL Glucose (74-99) mg/dL POC Glucose (mg/dL) 136 H (75-99) mg/dL Calcium (8.4-10.2) mg/dL Total Protein (6.3-8.2) g/dL Albumin (3.5-5.0) g/dL Microbiology - Last 24 Hours (Table) 09/06/21 03:18 Gram Stain - Preliminary Sputum Sputum Culture - Preliminary 09/05/21 15:57 Blood Culture - Preliminary Blood No Growth after 24 hours 09/05/21 15:56 Blood Culture - Preliminary Blood No Growth after 24 hours 09/03/21 01:22 Gram Stain - Preliminary Sputum Sputum Culture - Preliminary Gram Neg Bacilli
[2021-09-07] MEDS ORDERED: CALCIUM GLUCONATE 1 GM in SODIUM CHLORIDE 0.9% 100 ML IVPB ONE (17:00)
[2021-09-07 17:57] LABS: Glucose,Whole Blood 141 mg/dL (75-99)
[2021-09-07] MEDS: PRAVASTATIN SODIUM 20 MG TAB PO SCH (20:12)
[2021-09-07] MEDS: CEFEPIME 1 GM in SODIUM CHLORIDE 0.9% 50 ML IVPB SCH (20:12)
[2021-09-07 21:33] LABS: Glucose,Whole Blood 152 mg/dL (75-99)
[2021-09-07 22:12] LABS: ABG Base Excess 0.9 mmol/L; ABG HCO3 28 mmol/L (21-25); ABG PCO2 62 mmHg (35-45); ABG PH 7.26 (7.35-7.45); ABG TCO2 30 mmol/L (19-24); Allen Test Performed? Yes
[2021-09-07 22:18] LABS: ABG PO2 52 mmHg (83-108)
--- NOTE | 2021-09-07 22:22 | PN ---
PROGRESS NOTE DATE OF SERVICE: 09/07/2021 REASON FOR FOLLOWUP: Pneumonia. INTERVAL HISTORY: The patient did have a fever this morning of 100.5. He is afebrile this afternoon. The patient is on low-dose pressor support, but no significant increase in the amount of pressor to maintain his saturation. He is still on 85% FiO2. No significant purulent secretions through the ET, diarrhea or any other changes reported by the nursing staff. PHYSICAL EXAMINATION: Blood pressure 128/67, pulse of 117, temperature 99. He is 87% on 85% FiO2. General description is an elderly male lying in bed in no distress. Respiratory system: Unlabored breathing, decreased intensity of breath sounds. No wheeze. Heart S1, S2. Regular rate and rhythm. Abdomen soft, no tenderness. LABS: Hemoglobin is , white count 26.7. Creatinine is up to 2.90. Sputum finalized with Pseudomonas, a sensitive pathogen. DIAGNOSTIC IMPRESSION AND PLAN: Patient with acute respiratory failure which is multifactorial in this patient who did have initial COVID-19 pneumonia, now with concern for possible secondary bacterial pneumonia. Sputum has been Pseudomonas. Patient is covered with cefepime; to continue along with respiratory support and monitor his clinical course closely. Prognosis remains guarded. MMODL / IJN: [id number] /
[2021-09-07 22:53] LABS: Albumin 2.3 g/dL (3.5-5.0); Total Bilirubin 0.3 mg/dL (0.2-1.3)
[2021-09-07] MEDS ORDERED: FUROSEMIDE 10 MG/ML 10 ML VIAL IV STA (23:35)
[2021-09-07 23:47] LABS: Calcium 8.2 mg/dL (8.4-10.2); Potassium 5.9 mmol/L (3.5-5.1); Total Protein 5.1 g/dL (6.3-8.2)
[2021-09-07 23:49] LABS: Glucose,Whole Blood 132 mg/dL (75-99)
[2021-09-08] MEDS: INSULIN ASPART (NovoLOG) 100 UNIT/ML VIAL SQ SCH ×4 (00:25→18:42)
[2021-09-08 04:48] LABS: HCT 37.2 % (39.0-53.0); HGB 11.8 gm/dL (13.0-17.5); MCH 30.6 pg (25.0-35.0); MCHC 31.8 g/dL (31.0-37.0); MCV 96.3 fL (80.0-100.0); Mean Platelet Volume 7.9; Platelet Count 368 k/uL (150-450); RBC 3.86 m/uL (4.30-5.90); RDW 13.3 % (11.5-15.5)
[2021-09-08 05:21] LABS: ABG Base Excess -1.4 mmol/L; ABG HCO3 26 mmol/L (21-25); ABG Oxygen Saturation 90.8 % (94-97); ABG PCO2 58 mmHg (35-45); ABG PH 7.25 (7.35-7.45); ABG PO2 65 mmHg (83-108); ABG TCO2 28 mmol/L (19-24); Allen Test Performed? Yes
[2021-09-08 05:26] LABS: Albumin 2.3 g/dL (3.5-5.0); Calcium 8.2 mg/dL (8.4-10.2); Total Bilirubin 0.4 mg/dL (0.2-1.3); Total Protein 5.1 g/dL (6.3-8.2)
[2021-09-08 05:42] LABS: Glucose,Whole Blood 134 mg/dL (75-99)
[2021-09-08] MEDS: bisacodyL 10 MG SUPP RECTAL PRN (05:51)
[2021-09-08 05:57] LABS: Band Neutrophils % 7 %; Metamyelocytes % 3 %; Myelocytes % 2 %; Neutrophils % (M) 80 %; Nucleated Red Blood Cells 0 /100 WBC (0-0); Total Cells Counted 200
[2021-09-08 05:59] LABS: Toxic Granulation Present
[2021-09-08] MEDS ORDERED: DEXTROSE 50% SYRINGE 50 ML IVP STA ×2 (06:18→21:06)
[2021-09-08] MEDS ORDERED: INSULIN REGULAR 100 UNIT/ML VIAL (IV) IV ONE ×2 (06:18→21:05)
[2021-09-08] MEDS ORDERED: CALCIUM GLUCONATE 1 GM in SODIUM CHLORIDE 0.9% 100 ML IVPB ONE ×2 (06:30→21:15)
--- NOTE | 2021-09-08 08:09 | P.PN ---
Subjective Progress Note Date: 09/08/21 76-year-old male, who presents to the emergency department, on August 30. The patient has a history of atrial fibrillation, hyperlipidemia, hypertension, and COPD, history of lung herniation, and that he was home O2, at 2 L as needed. The patient presents to the emergency department with complaints of increasing shortness of breath, and cough and the patient became progressively more hypoxic requiring high levels of oxygen initially went on high flow oxygen and ultimately the patient was intubated and placed on a mechanical ventilator as of 09/02/2001. The patient remains on a mechanical ventilator on assist control mode with a tidal volume of 500, FiO2 of 65%, PEEP of 15 and the rate of 28. The peak airway pressure is 33. Static pressures 27. At this point in time, the patient is intubated, sedated currently on propofol running at 60 g per program per minute, paralyzed with Nimbex at 1 mcg/kg per minute and the patient is on a NSS rate of 20 mL an hour. The patient is also hypotensive, currently on pressors and norepinephrine infusion is running at the rate of 0.16 g per /kg/ minute. The patient remains in atrial fibrillation. The patient was quite tachycardic with underlying atrial fibrillation. The patient is currently on amiodarone drip running at 0.5 micrograms per kilogram per minute and the patient is also on Cardizem drip at 5 mg an hour. His current heart rate is in order of 125 beats per minute, irregular. The chest x-ray showing diffuse bilateral pulmonary infiltrates more so in the lower lobes bilaterally. Orotracheal tube is in a good location. The patient has a left internal jugular triple-lumen catheter in place. Orogastric tube is also in place. He does have evidence of lung herniation on the left. The patient was started on enteral feeding for nutritional support and the patient is receiving vital AF at the rate of 15 mL an hour. The patient is currently on Decadron 6 mg IV every 24 hours. The patient is on long-term and correlation with Eliquis 5 mg by mouth twice a day. Blood work from today shows a sodium level of 1:30. This is improved compared to yesterday. The patient is developing acute kidney injury. Creatinine is up to 1.5 from a baseline of 1.06 and creatinine is up to 47. In terms of his inflammatory markers, LDH from 09/03/2021 was 1179 with a CRP of 20. His white cell count is up to 31.7. The patient is afebrile. Nevertheless, based on his underlying hypotension and new onset leukocytosis, a super infection is highly considered in this patient. His most recent pro- calcitonin level is 0.1 and this is from 08/30/2021 and this is to be repeated. The patient is not receiving any form of antibiotic coverage at this point in time. On today's evaluation of 09/06/2021, the patient is being seen for a follow-up. As of yesterday, I took the patient off paralytics and the patient is currently on propofol running at 70 mg/kg per minute. Is adequately sedated for now and his symptoms of the mechanical ventilator. He remains on the respirator with an assist-control mode at the rate of 28 and a tidal volume of 500 and FiO2 of 85% and a PEEP of 15. Peak airway pressure 31. Static pressure is 30. The chest x-ray showing diffuse bilateral pulmonary infiltrates consistent with coronary ventilated pneumonia. At the same time, orotracheal tube is in a good location. OG tube is also adequate location. No evidence of any subcutaneous emphysema. There is increased consolidation in the right lung base and the patient has a left IJ triple-lumen catheter in place. He remains on pressors and the patient is currently on norepinephrine running at 0.22 mcg/kg per minute. Yesterday, was concerned of a super infection. Cultures were sent and the patient was started on IV cefepime. He remains afebrile. White cell count is down to 24 which is improved compared to yesterday. His blood gases from today showing a pH of 7.21 with a pCO2 of 55 and pO2 of 58. He is currently on IV cefepime. Pending further blood cultures. Meanwhile, there is been some interval worsening his renal function. Creatinine is up to 1.9 with a BUN of 64. Sodium level is at 129. Overall fluid balance is in the order of 1.1 L positive over the past 24 hours. Not urine output was in the order of 900 mL since yesterday. The patient is receiving enteral feeding for nutritional support. He is on vital AF at the rate of 15 mL an hour. His white cell count is down to 24. Hemoglobin stable at 14. Sodium level is at 129. Serum bicarbs at 20. LDH level is down to 794 with a CRP of 37.4. He remains on Eliquis regarding his ongoing nature fibrillation. In terms of his A. fib, rate is under better control. He is on amiodarone running at 0.5 mg per minute and Cardizem drip running at 5 mg an hour. Otherwise, no other significant events. Condition remains quite critical at this point in time. 09/07/2021 the patient is being seen for a follow-up. On today's evaluation, I have the patient sedated with propofol and the patient is running at 70 mcg/kg per minute. He remains well sedated. He is calm and comfortable and suggested a mechanical ventilator. He continues to be on assist-control mode, the ventilator settings are essentially unchanged compared to yesterday. His weight is a 28 with a tidal volume of 500 and FiO2 of 85% with a PEEP of 15. The peak airway pressure is 35 on today's evaluation with metastatic tumor pressure of 32. The chest x-ray remains unchanged with diffuse bilateral pulmonary infiltrates. ET tube is in a good location. Blood gases from today showed a pH of 7.25 with a pCO2 of 56 and pO2 of 57 which is essentially compatible to yesterday. As such, no major interval change in his overall pulmonary status, or oxygenation. His sputum is growing gram-negative bacillus. Final culture are still pending. Meanwhile the patient is on IV cefepime. He has been afebrile and he spike a temperature of 100.5 today. He remains on IV cefepime. He is hemodynamically hypotensive still and the patient is still on pressors have been reduced compared to yesterday and currently on 0.15 mcg/kg per minute of norepinephrine infusion. Urine output is in order of 30 mL an hour. The patient has developed progressive renal failure. Creatinine is at 2.9 and the patient is unemployed positive fluid balance of 2.9 L. Nephrology is on the case. We are avoiding nephrotoxic agents. The patient was given a dose of Lasix yesterday with some limited response. He is receiving enteral feeding for nutritional support and currently is on vital AF at the rate of 15 mL an hour. His underlying cardiac rhythm is A. fib and the rate is around 110 and the skye ent remains on Cardizem drip at 5 mg an hour and the patient is also on by mouth amiodarone. Anticoagulations with Eliquis and the dose has to be modified bases underlying renal failure. Currently is receiving 5 mg twice a day and disability is down to 2.5 mg twice a day. Rest of the electrodes are stable. Inflammatory markers are pending from today. Note that his LDH was coming down and the last level was down to 784. 09/08/2021, the patient is being seen for a follow-up. As morning, he remains sedated on propofol is running at 40 mcg/kg per minute. He is calm and comfortable and synchronous with the mechanical ventilator. I had to make some adjustments on his ventilator setting of the patient was becoming hypoxic yesterday. For now, and this morning, he is on a rate of 28 with a tidal volume of 500 and FiO2 of 100% and PEEP was brought up to 18. His peak airway pressure is 35 with a static pressure of 33. His pH is at 7.25 with a pCO2 of 58 and pO2 of 65. Chest x-ray still showing diffuse bilateral pulmonary infiltrates consistent with coronary ventilated pneumonia. The sputum Gram stain was possible gram-negative bacteria and ultimately decided not to be pseudomonas aeruginosa and the patient is currently on IV cefepime. White cell count is currently as at 30.0. He was on pressors and he was requiring high-dose pressors and ultimately this has been weaned down to 0.05 mcg/kg per minute of norepinephrine infusion. His most recent blood pressure is adequate. His urine output is order of 10-15 mL an hour. He has developed an acute kidney injury. Creatinine is up to 4.0 with a BUN of 134. Potassium is up to 6.0. Earlier this morning, he was treated for his hyperkalemia and he was given bicarb and D50 along with insulin. His cardiac rhythm is still in atrial fibrillation. He is on and off tachycardic. He has been on amiodarone and he is currently on oral 400 mg by mouth twice a day. He is Eliquis dose was adjusted yesterday to 2.5 mg twice a day and this will be further stopped in preparation for a dialysis catheter insertion as recommended by nephrology. He has developed some third space and fluid overload. He has increased edema in all 4 extremities. His fluid balance is +1.3 L over the past 24 hours. Otherwise, he remains on De cadron 6 mg IV every 24 hours. Inflammatory markers have dropped down to 794 LDH and 30 7.4F CRP. Sodium level is at 132. Serum bicarbonate is currently at 23. He is receiving enteral feeding for nutritional support. He is currently on Nepro at the rate of 10 mL an hour. Objective - Vital Signs Vital signs: Vital Signs Temp 99.4 F 09/08/21 04:00 Pulse 123 H 09/08/21 07:00 Resp 29 H 09/08/21 07:00 BP 114/76 09/08/21 07:00 Pulse Ox 88 L 09/08/21 07:00 Intake & Output 09/07/21 09/08/21 09/08/21 18:59 06:59 18:59 Intake Total 1254.690 798.864 78.011 Output Total 345 325 Balance 909.690 473.864 78.011 Weight 107 kg 111 kg Intake: IV 243 260 .9 243 260 Intake, IV Titration 736.690 358.864 78.011 Amount Calcium Gluconate 1 gm In 100 Sodium Chloride 0.9% 100 ml @ 100 mls/hr IVPB ONCE ONE Rx#:[id number] Diltiazem 125 mg In 114.833 Sodium Chloride 0.9% 100 ml @ Per Protocol IV .Q0M [facility] Rx#:[id number] Norepinephrine 32 mg In 66.288 36.875 Sodium Chloride 0.9% 218 ml @ 0.05 MCG/KG/MIN 2. 416 mls/hr IV .Q24H [facility] Rx#:[id number] propofoL 1,000 mg In 455.569 321.989 78.011 Empty Bag 1 bag @ Titrate IV .Q0M [facility] Rx#: [id number] Tube Feeding 125 120 Other 150 60 Output: Urine 345 325 Other: Voiding Method Indwelling Catheter Indwelling Catheter ABP, PAP, CO, CI - Last Documented Arterial Blood Pressure 122/62 - Exam No acute distress, currently sedated , with an orally placed endotracheal tube and NG tube. The patient has a triple lumen cath in his left IJ HEENT examination is grossly unremarkable. Neck supple. Full range of motion. No adenopathy thyromegaly or neck vein distention. Cardiovascular examination reveals regular rhythm rate. S1-S2 normal. No S3 or S4. No discernible murmur noted. Heart sounds are distant. Heart rate 122 bpm. Lungs reveal coarse bilateral rhonchi. No wheezes or crackles. Breath sounds equal. Abdomen soft with bowel sounds. No masses or tenderness. Extremities are intact. No cyanosis clubbing and the patient is developing third spacing and edema in all 4 extremities. Skin is without rash or lesion. Neurologic examination cannot be adequately assessed as the patient is currently sedated , pupils around 3 mm in size and they're symmetrical and reactive to light. - Labs CBC & Chem 7: 09/08/21 04:25 09/08/21 04:25 Labs: Abnormal Lab Results - Last 24 Hours (Table) 09/07/21 09/07/21 09/07/21 Range/Units 02:35 11:36 15:45 WBC (3.8-10.6) k/uL RBC (4.30-5.90) m/uL Hgb (13.0-17.5) gm/dL Hct (39.0-53.0) % Neutrophils # (Manual) 24.80 H (1.3-7.7) k/uL Lymphocytes # (Manual) 0.53 L (1.0-4.8) k/uL Monocytes # (Manual) (0-1.0) k/uL Metamyelocytes # (Man) 0.27 H (0) k/uL Myelocytes # (Manual) 0.53 H (0) k/uL ABG pH (7.35-7.45) ABG pCO2 (35-45) mmHg ABG pO2 (83-108) mmHg ABG HCO3 (21-25) mmol/L ABG Total CO2 (19-24) mmol/L ABG O2 Saturation (94-97) % Sodium (137-145) mmol/L Potassium 6.1 H* (3.5-5.1) mmol/L BUN (9-20) mg/dL Creatinine (0.66-1.25) mg/dL Glucose (74-99) mg/dL POC Glucose (mg/dL) 128 H (75-99) mg/dL Calcium (8.4-10.2) mg/dL Total Protein (6.3-8.2) g/dL Albumin (3.5-5.0) g/dL 09/07/21 09/07/21 09/07/21 Range/Units 17:55 20:20 20:20 WBC (3.8-10.6) k/uL RBC (4.30-5.90) m/uL Hgb (13.0-17.5) gm/dL Hct (39.0-53.0) % Neutrophils # (Manual) (1.3-7.7) k/uL Lymphocytes # (Manual) (1.0-4.8) k/uL Monocytes # (Manual) (0-1.0) k/uL Metamyelocytes # (Man) (0) k/uL Myelocytes # (Manual) (0) k/uL ABG pH (7.35-7.45) ABG pCO2 (35-45) mmHg ABG pO2 (83-108) mmHg ABG HCO3 (21-25) mmol/L ABG Total CO2 (19-24) mmol/L ABG O2 Saturation (94-97) % Sodium 132 L (137-145) mmol/L Potassium 5.9 H 5.9 H (3.5-5.1) mmol/L BUN 118 H* (9-20) mg/dL Creatinine 3.66 H (0.66-1.25) mg/dL Glucose 150 H (74-99) mg/dL POC Glucose (mg/dL) 141 H (75-99) mg/dL Calcium 8.2 L (8.4-10.2) mg/dL Total Protein 5.1 L (6.3-8.2) g/dL Albumin 2.3 L (3.5-5.0) g/dL 09/07/21 09/07/21 09/07/21 Range/Units 21:31 22:07 23:47 WBC (3.8-10.6) k/uL RBC (4.30-5.90) m/uL Hgb (13.0-17.5) gm/dL Hct (39.0-53.0) % Neutrophils # (Manual) (1.3-7.7) k/uL Lymphocytes # (Manual) (1.0-4.8) k/uL Monocytes # (Manual) (0-1.0) k/uL Metamyelocytes # (Man) (0) k/uL Myelocytes # (Manual) (0) k/uL ABG pH 7.26 L (7.35-7.45) ABG pCO2 62 H (35-45) mmHg ABG pO2 52 L* (83-108) mmHg ABG HCO3 28 H (21-25) mmol/L ABG Total CO2 30 H (19-24) mmol/L ABG O2 Saturation 84.0 L (94-97) % Sodium (137-145) mmol/L Potassium (3.5-5.1) mmol/L BUN (9-20) mg/dL Creatinine (0.66-1.25) mg/dL Glucose (74-99) mg/dL POC Glucose (mg/dL) 152 H 132 H (75-99) mg/dL Calcium (8.4-10.2) mg/dL Total Protein (6.3-8.2) g/dL Albumin (3.5-5.0) g/dL 09/08/21 09/08/21 09/08/21 Range/Units 04:25 04:25 05:03 WBC 30.0 H (3.8-10.6) k/uL RBC 3.86 L (4.30-5.90) m/uL Hgb 11.8 L (13.0-17.5) gm/dL Hct 37.2 L (39.0-53.0) % Neutrophils # (Manual) 26.10 H (1.3-7.7) k/uL Lymphocytes # (Manual) (1.0-4.8) k/uL Monocytes # (Manual) 1.50 H (0-1.0) k/uL Metamyelocytes # (Man) 0.90 H (0) k/uL Myelocytes # (Manual) 0.60 H (0) k/uL ABG pH 7.25 L (7.35-7.45) ABG pCO2 58 H (35-45) mmHg ABG pO2 65 L (83-108) mmHg ABG HCO3 26 H (21-25) mmol/L ABG Total CO2 28 H (19-24) mmol/L ABG O2 Saturation 90.8 L (94-97) % Sodium 132 L (137-145) mmol/L Potassium 6.0 H (3.5-5.1) mmol/L BUN 134 H* (9-20) mg/dL Creatinine 4.00 H (0.66-1.25) mg/dL Glucose 138 H (74-99) mg/dL POC Glucose (mg/dL) (75-99) mg/dL Calcium 8.2 L (8.4-10.2) mg/dL Total Protein 5.1 L (6.3-8.2) g/dL Albumin 2.3 L (3.5-5.0) g/dL 09/08/21 Range/Units 05:40 WBC (3.8-10.6) k/uL RBC (4.30-5.90) m/uL Hgb (13.0-17.5) gm/dL Hct (39.0-53.0) % Neutrophils # (Manual) (1.3-7.7) k/uL Lymphocytes # (Manual) (1.0-4.8) k/uL Monocytes # (Manual) (0-1.0) k/uL Metamyelocytes # (Man) (0) k/uL Myelocytes # (Manual) (0) k/uL ABG pH (7.35-7.45) ABG pCO2 (35-45) mmHg ABG pO2 (83-108) mmHg ABG HCO3 (21-25) mmol/L ABG Total CO2 (19-24) mmol/L ABG O2 Saturation (94-97) % Sodium (137-145) mmol/L Potassium (3.5-5.1) mmol/L BUN (9-20) mg/dL Creatinine (0.66-1.25) mg/dL Glucose (74-99) mg/dL POC Glucose (mg/dL) 134 H (75-99) mg/dL Calcium (8.4-10.2) mg/dL Total Protein (6.3-8.2) g/dL Albumin (3.5-5.0) g/dL Microbiology - Last 24 Hours (Table) 09/05/21 15:57 Blood Culture - Preliminary Blood No Growth after 48 hours 09/05/21 15:56 Blood Culture - Preliminary Blood No Growth after 48 hours 09/06/21 03:18 Gram Stain - Preliminary Sputum Sputum Culture - Preliminary Gram Neg Bacilli 09/03/21 01:22 Gram Stain - Final Sputum Sputum Culture - Final Pseudomonas aeruginosa Assessment and Plan Plan: 1 Acute hypoxemic respiratory failure, secondary to coronavirus COVID 19 - associated pneumonia. Status post intubation and mechanical ventilation, on 09/02/2021, for worsening hypoxemic respiratory failure. The patient remains intubated on a mechanical ventilator. Chest x-ray findings are essentially the same with diffuse but the pulmonary infiltrates. Since yesterday, there has been some interval decompensation and worsening in his oxygenation. Sputum came back positive for pseudomonas aeruginosa and obviously hospital-acquired on a ventilator acquired pneumonia on top of his Covid 19-related pneumonia is emerald pected and the patient is currently on IV cefepime. The patient is also on Decadron. Inflammatory markers improved. Chest x-ray still showing diffuse bilateral pulmonary infiltrates. Oxygenation is slightly worse and the patient is currently on a PEEP of 18 with an FiO2 of 100%. Awaiting further intervention for renal replacement therapy. 2 History of atrial fibrillation. The patient is currently on oral amiodarone, still tachycardic 3 systolic heart failure with an ejection fraction 40-45% 4 pseudomonas aeruginosa pneumonia with secondary Sepsis with hypotension currently on pressors with norepinephrine infusion running at 0.05 mcg/kg per minute. 5 COPD, with chronic hypoxemic respiratory failure. 6 acute kidney injury and the patient's progressive worsening renal function and creatinine is up to 4.0, rule out community related ATN. 7 pseudomonas aeruginosa in the sputum, consider a ventilator associated pneumonia or hospital-acquired pneumonia post Covid 90 related pneumonia and respiratory failure.The patient was taken Baricitinib which was discontinued 4 days ago and the patient is currently on Decadron only. 8 obstructive sleep apnea syndrome. Not utilizing or nontolerant to CPAP therapy on outpatient basis 9 Valvular heart disease. Please refer to the most recent echocardiogram. Ejection fraction is 40-45%.No significant valvular abnormalities based on the most recent echo the 10 Status post left thoracotomy for closure of diaphragmatic hernia. 11 history of hypertension 12 history of hyperlipidemia 13 BPH 14 Mnire's disease Plan: Continue ventilator support. The patient is currently on PEEP 18. With an FiO2 of 100%. The patient is found to have a pseudomonas aeruginosa and the patient is currently on IV cefepime. Pressor requirements have improved since yesterday. The patient will need a replacement therapy and dialysis catheter will be inserted this morning. He did have some mild hypokalemia that was treated earlier today. Dialysis to follow. Continue sedation with propofol Monitor renal function, initiate renal replacement therapy Continue IV cefepime 2 g every 12 hours Continue Decadron Wean off pressors and the pressor requirements have improved since yesterday Repeat inflammatory markers for tomorrow including LDH and CRP Hold anticoagulation for now pending dialysis catheter insertion Continue oral amiodarone Monitor renal function Continue enteral feeding for nutritional support Condition is obvious the critical and outcomes poor baseline above-mentioned comorbidities. We'll continue to follow, critical care evaluation more than 30 minutes. Time with Patient: Greater than 30
--- NOTE | 2021-09-08 08:29 | P.PN ---
Subjective Patient is seen in follow-up for acute kidney injury and hyponatremia. Sodium level stable at 132 today. Renal function worsening. Creatinine 4 today. Receiving tube feeds. Urine output 15-20 mL an hour. On Levophed. Patient remains hyperkalemic despite medical management. Vital signs are stable. On vasopressor support. HEENT: Intubated. Tachycardic. No edema. Breath sounds decreased. Objective - Vital Signs Vital signs: Vital Signs Temp 99.4 F 09/08/21 04:00 Pulse 123 H 09/08/21 07:00 Resp 29 H 09/08/21 07:00 BP 114/76 09/08/21 07:00 Pulse Ox 88 L 09/08/21 07:00 Intake & Output 09/07/21 09/08/21 09/08/21 18:59 06:59 18:59 Intake Total 1254.690 798.864 78.011 Output Total 345 325 Balance 909.690 473.864 78.011 Weight 107 kg 111 kg Intake: IV 243 260 .9 243 260 Intake, IV Titration 736.690 358.864 78.011 Amount Calcium Gluconate 1 gm In 100 Sodium Chloride 0.9% 100 ml @ 100 mls/hr IVPB ONCE ONE Rx#:[id number] Diltiazem 125 mg In 114.833 Sodium Chloride 0.9% 100 ml @ Per Protocol IV .Q0M [facility] Rx#:[id number] Norepinephrine 32 mg In 66.288 36.875 Sodium Chloride 0.9% 218 ml @ 0.05 MCG/KG/MIN 2. 416 mls/hr IV .Q24H [facility] Rx#:[id number] propofoL 1,000 mg In 455.569 321.989 78.011 Empty Bag 1 bag @ Titrate IV .Q0M [facility] Rx#: [id number] Tube Feeding 125 120 Other 150 60 Output: Urine 345 325 Other: Voiding Method Indwelling Catheter Indwelling Catheter ABP, PAP, CO, CI - Last Documented Arterial Blood Pressure 122/62 - Labs CBC & Chem 7: 09/08/21 04:25 09/08/21 04:25 Labs: Abnormal Lab Results - Last 24 Hours (Table) 09/07/21 09/07/21 09/07/21 Range/Units 02:35 11:36 15:45 WBC (3.8-10.6) k/uL RBC (4.30-5.90) m/uL Hgb (13.0-17.5) gm/dL Hct (39.0-53.0) % Neutrophils # (Manual) 24.80 H (1.3-7.7) k/uL Lymphocytes # (Manual) 0.53 L (1.0-4.8) k/uL Monocytes # (Manual) (0-1.0) k/uL Metamyelocytes # (Man) 0.27 H (0) k/uL Myelocytes # (Manual) 0.53 H (0) k/uL ABG pH (7.35-7.45) ABG pCO2 (35-45) mmHg ABG pO2 (83-108) mmHg ABG HCO3 (21-25) mmol/L ABG Total CO2 (19-24) mmol/L ABG O2 Saturation (94-97) % Sodium (137-145) mmol/L Potassium 6.1 H* (3.5-5.1) mmol/L BUN (9-20) mg/dL Creatinine (0.66-1.25) mg/dL Glucose (74-99) mg/dL POC Glucose (mg/dL) 128 H (75-99) mg/dL Calcium (8.4-10.2) mg/dL Total Protein (6.3-8.2) g/dL Albumin (3.5-5.0) g/dL 09/07/21 09/07/21 09/07/21 Range/Units 17:55 20:20 20:20 WBC (3.8-10.6) k/uL RBC (4.30-5.90) m/uL Hgb (13.0-17.5) gm/dL Hct (39.0-53.0) % Neutrophils # (Manual) (1.3-7.7) k/uL Lymphocytes # (Manual) (1.0-4.8) k/uL Monocytes # (Manual) (0-1.0) k/uL Metamyelocytes # (Man) (0) k/uL Myelocytes # (Manual) (0) k/uL ABG pH (7.35-7.45) ABG pCO2 (35-45) mmHg ABG pO2 (83-108) mmHg ABG HCO3 (21-25) mmol/L ABG Total CO2 (19-24) mmol/L ABG O2 Saturation (94-97) % Sodium 132 L (137-145) mmol/L Potassium 5.9 H 5.9 H (3.5-5.1) mmol/L BUN 118 H* (9-20) mg/dL Creatinine 3.66 H (0.66-1.25) mg/dL Glucose 150 H (74-99) mg/dL POC Glucose (mg/dL) 141 H (75-99) mg/dL Calcium 8.2 L (8.4-10.2) mg/dL Total Protein 5.1 L (6.3-8.2) g/dL Albumin 2.3 L (3.5-5.0) g/dL 09/07/21 09/07/21 09/07/21 Range/Units 21:31 22:07 23:47 WBC (3.8-10.6) k/uL RBC (4.30-5.90) m/uL Hgb (13.0-17.5) gm/dL Hct (39.0-53.0) % Neutrophils # (Manual) (1.3-7.7) k/uL Lymphocytes # (Manual) (1.0-4.8) k/uL Monocytes # (Manual) (0-1.0) k/uL Metamyelocytes # (Man) (0) k/uL Myelocytes # (Manual) (0) k/uL ABG pH 7.26 L (7.35-7.45) ABG pCO2 62 H (35-45) mmHg ABG pO2 52 L* (83-108) mmHg ABG HCO3 28 H (21-25) mmol/L ABG Total CO2 30 H (19-24) mmol/L ABG O2 Saturation 84.0 L (94-97) % Sodium (137-145) mmol/L Potassium (3.5-5.1) mmol/L BUN (9-20) mg/dL Creatinine (0.66-1.25) mg/dL Glucose (74-99) mg/dL POC Glucose (mg/dL) 152 H 132 H (75-99) mg/dL Calcium (8.4-10.2) mg/dL Total Protein (6.3-8.2) g/dL Albumin (3.5-5.0) g/dL 09/08/21 09/08/21 09/08/21 Range/Units 04:25 04:25 05:03 WBC 30.0 H (3.8-10.6) k/uL RBC 3.86 L (4.30-5.90) m/uL Hgb 11.8 L (13.0-17.5) gm/dL Hct 37.2 L (39.0-53.0) % Neutrophils # (Manual) 26.10 H (1.3-7.7) k/uL Lymphocytes # (Manual) (1.0-4.8) k/uL Monocytes # (Manual) 1.50 H (0-1.0) k/uL Metamyelocytes # (Man) 0.90 H (0) k/uL Myelocytes # (Manual) 0.60 H (0) k/uL ABG pH 7.25 L (7.35-7.45) ABG pCO2 58 H (35-45) mmHg ABG pO2 65 L (83-108) mmHg ABG HCO3 26 H (21-25) mmol/L ABG Total CO2 28 H (19-24) mmol/L ABG O2 Saturation 90.8 L (94-97) % Sodium 132 L (137-145) mmol/L Potassium 6.0 H (3.5-5.1) mmol/L BUN 134 H* (9-20) mg/dL Creatinine 4.00 H (0.66-1.25) mg/dL Glucose 138 H (74-99) mg/dL POC Glucose (mg/dL) (75-99) mg/dL Calcium 8.2 L (8.4-10.2) mg/dL Total Protein 5.1 L (6.3-8.2) g/dL Albumin 2.3 L (3.5-5.0) g/dL 09/08/21 Range/Units 05:40 WBC (3.8-10.6) k/uL RBC (4.30-5.90) m/uL Hgb (13.0-17.5) gm/dL Hct (39.0-53.0) % Neutrophils # (Manual) (1.3-7.7) k/uL Lymphocytes # (Manual) (1.0-4.8) k/uL Monocytes # (Manual) (0-1.0) k/uL Metamyelocytes # (Man) (0) k/uL Myelocytes # (Manual) (0) k/uL ABG pH (7.35-7.45) ABG pCO2 (35-45) mmHg ABG pO2 (83-108) mmHg ABG HCO3 (21-25) mmol/L ABG Total CO2 (19-24) mmol/L ABG O2 Saturation (94-97) % Sodium (137-145) mmol/L Potassium (3.5-5.1) mmol/L BUN (9-20) mg/dL Creatinine (0.66-1.25) mg/dL Glucose (74-99) mg/dL POC Glucose (mg/dL) 134 H (75-99) mg/dL Calcium (8.4-10.2) mg/dL Total Protein (6.3-8.2) g/dL Albumin (3.5-5.0) g/dL Microbiology - Last 24 Hours (Table) 09/05/21 15:57 Blood Culture - Preliminary Blood No Growth after 48 hours 09/05/21 15:56 Blood Culture - Preliminary Blood No Growth after 48 hours 09/06/21 03:18 Gram Stain - Preliminary Sputum Sputum Culture - Preliminary Gram Neg Bacilli 09/03/21 01:22 Gram Stain - Final Sputum Sputum Culture - Final Pseudomonas aeruginosa Assessment and Plan Plan: Assessment: 1. Hypovolemic hyponatremia improved with IV hydration. Also component of SIADH from respiratory infection and AARTI. Sodium level 132 today. Urine osmolality 380. 2. Acute kidney injury secondary to ATN secondary to hypotension and sepsis. Creatinine 4 today. 3. A. fib with RVR maintained on oral amiodarone. 4. COVID-19 pneumonia. Intubated. On 85% FiO2. 5. Metabolic acidosis secondary to acute kidney injury. Also has respiratory acidosis. Better. 6. Acute hypoxic respiratory failure. 7. Hyperkalemia secondary to acute kidney injury. Potassium level remains elevated despite medical management. 6.0 this morning. Plan: Status post IV Lasix given overnight - no improvement in urine output. Wean FiO2 and vasopressors. Maintain tube feeds. Continue to monitor renal function and urine output. With worsening renal function and persistent hyperkalemia, initiate renal replacement therapy. Consult vascular surgery for dialysis catheter placement. Plan for first treatment of hemodialysis today and second treatment tomorrow. Check phosphorus level. Patient received IV calcium as well as IV insulin with D50 this morning. Repeat potassium level in 2 hours.
--- NOTE | 2021-09-08 08:37 | XR ---
EXAMINATION TYPE: XR chest 1V portable DATE OF EXAM: 09/08/2021 COMPARISON: 09/07/2021 HISTORY: Shortness of breath TECHNIQUE: Single frontal view of the chest is obtained. FINDINGS: Diffuse bilateral airspace disease and small effusion stable. ET and NG tube stable. Left- sided central line stable. No pneumothorax. Heart size normal. Hypertrophic and degenerative change o f the spine. Underlying COPD suspected IMPRESSION: Correlate for a diffuse interstitial pneumonia or ARDS. CHF not excluded correlate clinic ally.
[2021-09-08] MEDS: ALBUTEROL HFA INHALER INHALATION SCH ×4 (08:45→20:26)
[2021-09-08] MEDS: PANTOPRAZOLE 40 MG/10 ML VIAL IVP SCH (09:27)
[2021-09-08] MEDS: CEFEPIME 1 GM in SODIUM CHLORIDE 0.9% 50 ML IVPB SCH ×2 (09:27→19:55)
[2021-09-08] MEDS: CHLORHEXIDINE GLUCONATE 15 ML CUP MUCOUS MEM SCH ×2 (09:27→19:55)
[2021-09-08] MEDS: DEXAMETHASONE SOD PHOSPHATE 10 MG/ML 1 ML VIAL IVP SCH (09:28)
[2021-09-08] MEDS: SODIUM BICARBONATE TAB 650 MG TAB PO SCH ×2 (09:28→19:55)
[2021-09-08] MEDS: AMIODARONE 200 MG TAB PO SCH ×2 (09:28→19:55)
[2021-09-08] MEDS: CHOLECALCIFEROL 25 MCG (1000 IU) TABLET PO SCH (09:28)
[2021-09-08] MEDS: ASCORBIC ACID 500 MG TAB PO SCH (09:28)
[2021-09-08] MEDS: ZINC SULFATE 220 MG CAP PO SCH (09:28)
--- NOTE | 2021-09-08 10:40 | CONS ---
CONSULTATION This is a 76-year-old gentleman. I was consulted for urgent placement of dialysis catheter. Patient is Covid positive. The patient has been intubated. The patient has a high BUN and creatinine. Consent has been signed. We will place a dialysis catheter. PAST MEDICAL HISTORY: Patient has a history of atrial fibrillation, on Eliquis, history of COPD, history of deafness, hyperlipidemia, hypertension, prostate disorder. PERSONAL HISTORY: Former smoker. ALLERGIES: No known allergy. SURGICAL HISTORY: Patient had a hernia repair and tonsillectomy in the past. PHYSICAL EXAMINATION: The patient was seen in his room. Patient has been intubated. Lungs had crackles bilateral. Abdomen is soft. Femorals are not palpable. PLAN: Placement of the dialysis catheter. Risks and complications discussed. Thank you for the consult. EDUIN / LORY: [id number] /
[2021-09-08] MEDS ORDERED: NA PHOS,M-B/NA PHOS,DI-BA 133 ML ENEMA RECTAL ONE (11:16)
[2021-09-08 11:32] LABS: Glucose,Whole Blood 125 mg/dL (75-99)
[2021-09-08] MEDS: ARTIFICIAL TEARS-HYPROMELLOSE DROPS 15 ML BTL BOTH EYES SCH (11:45)
--- NOTE | 2021-09-08 12:00 | P.PN ---
Subjective Progress Note Date: 09/08/21 This 76-year-old gentleman is admitted to hospital with Covid pneumonia and hypoxia requiring intubation and respiratory support. We're asked to see the patient because of recurrent atrial fibrillation. Patient was initially initiated on amiodarone with conversion to sinus rhythm. He was switched to by mouth amiodarone, but subsequently went back into atrial fibrillation. He was restarted on amiodarone drip and also Cardizem drip. He still has severe hypoxia. His echo showed an ejection fraction of 4045%. There is some suggestion that could be component of CHF. Patient has been hypotensive and septic. He is on nor epinephrine. We'll continue his amiodarone drip per overnight. If stable, will switch to by mouth amiodarone tomorrow. Overall his prognosis is guarded. 09/06/2021: This patient remains intubated. Still in atrial fibrillation with controlled ventricular response with heart rates in 82 to 100 range. Patient chest x-ray still shows picture of pneumonia and ARDS and his ABGs still show hypoxia and hypercapnia. His creatinine is 1.92. From cardiac standpoint, we can stop the amiodarone drip and start him on by mouth amiodarone 400 mg by mouth twice a day. Subsequently at times will be made to wean off Cardizem. 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 Prognosis is guarded. 09/07/2021: This patient continues to be on ventilator support with chest x-ray showing ARDS picture. Patient is also on pressors but seemed to be unless the dose. His kidney function is deteriorating. Patient remains in atrial fibrillation with fairly controlled and corresponds with heart rates between 90- 110. He is on by mouth amiodarone and also IV Cardizem. Hopefully as pulmonary status improves, his heart rate control becomes better. We'll continue current medical therapy. We'll follow 09/08/2021: This patient's remains on respiratory support. No significant improvement in pulmonary status. Patient went into renal failure and had a dialysis catheter today. From cardiac standpoint, he remains in atrial fibrillation with heart rates in the 110 range. He is on by mouth amiodarone load Small dose of Cardizem. Continue the rest of the management. Prognosis is poor Objective - Vital Signs Vital signs: Vital Signs Temp 99.1 F 09/08/21 08:00 Pulse 117 H 09/08/21 10:00 Resp 28 H 09/08/21 10:00 BP 118/72 09/08/21 10:00 Pulse Ox 87 L 09/08/21 10:00 Intake & Output 09/07/21 09/08/21 09/08/21 18:59 06:59 18:59 Intake Total 1254.690 798.864 457.011 Output Total 345 325 68 Balance 909.690 473.864 389.011 Weight 107 kg 111 kg Intake: IV 243 260 69 .9 243 260 69 Intake, IV Titration 736.690 358.864 378.011 Amount Calcium Gluconate 1 gm In 100 Sodium Chloride 0.9% 100 ml @ 100 mls/hr IVPB ONCE ONE Rx#:[id number] Calcium Gluconate 1 gm In 100 Sodium Chloride 0.9% 100 ml @ 100 mls/hr IVPB ONCE ONE Rx#:[id number] Cefepime 2 gm In Sodium 100 Chloride 0.9% 100 ml @ 25 mls/hr IVPB Q12HR [facility] Rx #:[id number] Diltiazem 125 mg In 114.833 Sodium Chloride 0.9% 100 ml @ Per Protocol IV .Q0M [facility] Rx#:[id number] Norepinephrine 32 mg In 66.288 36.875 Sodium Chloride 0.9% 218 ml @ 0.05 MCG/KG/MIN 2. 416 mls/hr IV .Q24H [facility] Rx#:[id number] propofoL 1,000 mg In 455.569 321.989 178.011 Empty Bag 1 bag @ Titrate IV .Q0M [facility] Rx#: [id number] Tube Feeding 125 120 10 Other 150 60 Output: Urine 345 325 68 Other: Voiding Method Indwelling Catheter Indwelling Catheter ABP, PAP, CO, CI - Last Documented Arterial Blood Pressure 101/55 - Exam Patient is not personally examined. Information is gathered from consult and notes. For further information could be gathered from sql server consultant notes - Labs CBC & Chem 7: 09/08/21 04:25 09/08/21 09:58 Labs: Abnormal Lab Results - Last 24 Hours (Table) 09/07/21 09/07/21 09/07/21 Range/Units 15:45 17:55 20:20 WBC (3.8-10.6) k/uL RBC (4.30-5.90) m/uL Hgb (13.0-17.5) gm/dL Hct (39.0-53.0) % Neutrophils # (Manual) (1.3-7.7) k/uL Monocytes # (Manual) (0-1.0) k/uL Metamyelocytes # (Man) (0) k/uL Myelocytes # (Manual) (0) k/uL ABG pH (7.35-7.45) ABG pCO2 (35-45) mmHg ABG pO2 (83-108) mmHg ABG HCO3 (21-25) mmol/L ABG Total CO2 (19-24) mmol/L ABG O2 Saturation (94-97) % Sodium (137-145) mmol/L Potassium 6.1 H* 5.9 H (3.5-5.1) mmol/L BUN (9-20) mg/dL Creatinine (0.66-1.25) mg/dL Glucose (74-99) mg/dL POC Glucose (mg/dL) 141 H (75-99) mg/dL Calcium (8.4-10.2) mg/dL Total Protein (6.3-8.2) g/dL Albumin (3.5-5.0) g/dL 09/07/21 09/07/21 09/07/21 Range/Units 20:20 21:31 22:07 WBC (3.8-10.6) k/uL RBC (4.30-5.90) m/uL Hgb (13.0-17.5) gm/dL Hct (39.0-53.0) % Neutrophils # (Manual) (1.3-7.7) k/uL Monocytes # (Manual) (0-1.0) k/uL Metamyelocytes # (Man) (0) k/uL Myelocytes # (Manual) (0) k/uL ABG pH 7.26 L (7.35-7.45) ABG pCO2 62 H (35-45) mmHg ABG pO2 52 L* (83-108) mmHg ABG HCO3 28 H (21-25) mmol/L ABG Total CO2 30 H (19-24) mmol/L ABG O2 Saturation 84.0 L (94-97) % Sodium 132 L (137-145) mmol/L Potassium 5.9 H (3.5-5.1) mmol/L BUN 118 H* (9-20) mg/dL Creatinine 3.66 H (0.66-1.25) mg/dL Glucose 150 H (74-99) mg/dL POC Glucose (mg/dL) 152 H (75-99) mg/dL Calcium 8.2 L (8.4-10.2) mg/dL Total Protein 5.1 L (6.3-8.2) g/dL Albumin 2.3 L (3.5-5.0) g/dL 09/07/21 09/08/21 09/08/21 Range/Units 23:47 04:25 04:25 WBC 30.0 H (3.8-10.6) k/uL RBC 3.86 L (4.30-5.90) m/uL Hgb 11.8 L (13.0-17.5) gm/dL Hct 37.2 L (39.0-53.0) % Neutrophils # (Manual) 26.10 H (1.3-7.7) k/uL Monocytes # (Manual) 1.50 H (0-1.0) k/uL Metamyelocytes # (Man) 0.90 H (0) k/uL Myelocytes # (Manual) 0.60 H (0) k/uL ABG pH (7.35-7.45) ABG pCO2 (35-45) mmHg ABG pO2 (83-108) mmHg ABG HCO3 (21-25) mmol/L ABG Total CO2 (19-24) mmol/L ABG O2 Saturation (94-97) % Sodium 132 L (137-145) mmol/L Potassium 6.0 H (3.5-5.1) mmol/L BUN 134 H* (9-20) mg/dL Creatinine 4.00 H (0.66-1.25) mg/dL Glucose 138 H (74-99) mg/dL POC Glucose (mg/dL) 132 H (75-99) mg/dL Calcium 8.2 L (8.4-10.2) mg/dL Total Protein 5.1 L (6.3-8.2) g/dL Albumin 2.3 L (3.5-5.0) g/dL 09/08/21 09/08/21 09/08/21 Range/Units 05:03 05:40 09:58 WBC (3.8-10.6) k/uL RBC (4.30-5.90) m/uL Hgb (13.0-17.5) gm/dL Hct (39.0-53.0) % Neutrophils # (Manual) (1.3-7.7) k/uL Monocytes # (Manual) (0-1.0) k/uL Metamyelocytes # (Man) (0) k/uL Myelocytes # (Manual) (0) k/uL ABG pH 7.25 L (7.35-7.45) ABG pCO2 58 H (35-45) mmHg ABG pO2 65 L (83-108) mmHg ABG HCO3 26 H (21-25) mmol/L ABG Total CO2 28 H (19-24) mmol/L ABG O2 Saturation 90.8 L (94-97) % Sodium (137-145) mmol/L Potassium 6.0 H (3.5-5.1) mmol/L BUN (9-20) mg/dL Creatinine (0.66-1.25) mg/dL Glucose (74-99) mg/dL POC Glucose (mg/dL) 134 H (75-99) mg/dL Calcium (8.4-10.2) mg/dL Total Protein (6.3-8.2) g/dL Albumin (3.5-5.0) g/dL 09/08/21 Range/Units 11:30 WBC (3.8-10.6) k/uL RBC (4.30-5.90) m/uL Hgb (13.0-17.5) gm/dL Hct (39.0-53.0) % Neutrophils # (Manual) (1.3-7.7) k/uL Monocytes # (Manual) (0-1.0) k/uL Metamyelocytes # (Man) (0) k/uL Myelocytes # (Manual) (0) k/uL ABG pH (7.35-7.45) ABG pCO2 (35-45) mmHg ABG pO2 (83-108) mmHg ABG HCO3 (21-25) mmol/L ABG Total CO2 (19-24) mmol/L ABG O2 Saturation (94-97) % Sodium (137-145) mmol/L Potassium (3.5-5.1) mmol/L BUN (9-20) mg/dL Creatinine (0.66-1.25) mg/dL Glucose (74-99) mg/dL POC Glucose (mg/dL) 125 H (75-99) mg/dL Calcium (8.4-10.2) mg/dL Total Protein (6.3-8.2) g/dL Albumin (3.5-5.0) g/dL Microbiology - Last 24 Hours (Table) 09/06/21 03:18 Gram Stain - Final Sputum Sputum Culture - Final Pseudomonas aeruginosa 09/05/21 15:57 Blood Culture - Preliminary Blood No Growth after 48 hours 09/05/21 15:56 Blood Culture - Preliminary Blood No Growth after 48 hours 09/03/21 01:22 Gram Stain - Final Sputum Sputum Culture - Final Pseudomonas aeruginosa Assessment and Plan (1) Acute respiratory failure due to COVID-19 Current Visit: Yes Status: Acute Code(s): U07.1 - COVID-19; J96.00 - ACUTE RESPIRATORY FAILURE, UNSP W HYPOXIA OR HYPERCAPNIA SNOMED Code(s): 209587605 (2) Hyponatremia Current Visit: Yes Status: Acute Code(s): E87.1 - HYPO-OSMOLALITY AND HYPONATREMIA SNOMED Code(s): 82588143 (3) Acute exacerbation of chronic obstructive airways disease Current Visit: No Status: Acute Code(s): J44.1 - CHRONIC OBSTRUCTIVE PULMONARY DISEASE W (ACUTE) EXACERBATION SNOMED Code(s): 883805783 (4) Diaphragmatic hernia Current Visit: No Status: Acute Code(s): K44.9 - DIAPHRAGMATIC HERNIA WITHOUT OBSTRUCTION OR GANGRENE SNOMED Code(s): 71918808 (5) Paroxysmal atrial fibrillation Current Visit: No Status: Acute Code(s): I48.0 - PAROXYSMAL ATRIAL FIBRILL ATION SNOMED Code(s): 356431348 Plan: No significant improvement. Had dialysis catheter insertion today. We'll going to add small dose of Cardizem and continue by mouth amiodarone
--- NOTE | 2021-09-08 12:25 | PCN ---
PROCEDURE NOTE PREOPERATIVE DIAGNOSES: 1. Acute on chronic renal failure. 2. Covid positive, intubated. POSTOPERATIVE DIAGNOSES: 1. Acute on chronic renal failure. 2. Covid positive, intubated. PROCEDURE PERFORMED: Ultrasound-guided dialysis catheter placed right femoral approach. DESCRIPTION OF PROCEDURE: Patient was seen in the intensive care unit. Right groin was prepped and drapes applied in the usual sterile manner. Ultrasound-guided micropuncture introduced in the right femoral vein. Micropuncture guidewire was passed and a 4 Urdu dilator advanced on the top of the guidewire. After that, we passed a regular guidewire and dilator advanced on the top of the guidewire. Then we placed a dialysis catheter without any resistance. The guidewire was removed. Flushed with heparin saline and hep-locked, secured with 3-0 nylon. Patient tolerated the procedure well. EDUIN / LORY: [id number] /
[2021-09-08] MEDS: NOREPINEPHRINE 32 MG in SODIUM CHLORIDE 0.9% 218 ML IV SCH (14:40)
[2021-09-08 18:33] LABS: Glucose,Whole Blood 145 mg/dL (75-99)
[2021-09-08 19:45] LABS: Hepatitis A Ab, Total Nonreactive (Nonreactive); Hepatitis B Surface AB- Quant 3.5 mIU/mL; Hepatitis B Surface Antibody Nonreactive (Nonreactive); Hepatitis B Surface Antigen Nonreactive (Nonreactive)
[2021-09-08] MEDS: DILTIAZEM ORAL 30 MG TAB PO SCH (19:54)
[2021-09-08] MEDS: APIXABAN 2.5 MG TABLET PO SCH (19:54)
[2021-09-08] MEDS: PRAVASTATIN SODIUM 20 MG TAB PO SCH (19:55)
[2021-09-08] MEDS ORDERED: SODIUM BICARB 8.4% 50 ML SYR (1 MEQ/ML) IV STA (21:06)
--- NOTE | 2021-09-08 22:08 | PN ---
PROGRESS NOTE DATE OF SERVICE: 09/08/2021 REASON FOR FOLLOWUP: Pneumonia. INTERVAL HISTORY: The patient is afebrile. The patient remains intubated on the vent. FiO2 is currently 100%. Has been on pressor support, required during dialysis. No significant purulent secretions through the ET, diarrhea or any other changes reported by the nursing staff. PHYSICAL EXAMINATION: Blood pressure 139/69, pulse of 115, temperature 98.8. He is 90% on 100% FiO2. General description is an elderly male lying in bed in no distress. Respiratory system: Unlabored breathing, decreased intensity of breath sounds. No wheeze. Heart S1, S2. Regular rate and rhythm. Abdomen soft, no tenderness. LABS: Hemoglobin is 11. , white count 30,000. BUN of 134, creatinine is 4.0. Sputum has been Pseudomonas aeruginosa. DIAGNOSTIC IMPRESSION AND PLAN: 1. Patient with acute respiratory failure which is multifactorial in this patient who seems to have COVID-19 pneumonia, possible component secondary bacterial pneumonia. Sputum has been Pseudomonas. Patient is covered with cefepime. 2. Patient with worsening white count, possibly steroid-related. We will monitor closely. Continue with supportive care. MMODL / IJN: [id number] /
--- NOTE | 2021-09-08 22:30 | P.PN ---
Subjective Progress Note Date: 09/08/21 76-year-old pleasant male with known history of COPD with suicidal dysfunction at home given with complaints of shortness of breath cough without any sputum production going on for about one and half week. Patient did did get vaccinated for Covid and found to have Covid 19 pneumonia chest x-ray did not show any significant infiltrate. Patient denied any chest pain abdominal pain, diarrhea or nausea or vomiting. Patient is on Augmentin not sure why he is taking Augmentin as an outpatient. Patient is presently on 5 L of oxygen saturating at 95% and patient was having fevers with temperature of 100.6. Patient is also hyponatremic and is on hydrochlorothiazide at home. Patient was started on Dec adron. D-dimer is within normal limits 08/31/2021 Patient is seen and evaluated in follow-up with no acute overnight issues. Patient normally wears 2 L of oxygen as needed at night in the outpatient setting and currently continues on 5 L. Discussed with nursing staff about weaning FiO2 as tolerated. Pulmonary and infectious disease following an patient is maintained on bronchodilators along with vitamin and zinc supplements and has been started on IV dexamethasone and Lovenox subcutaneous injections. Patient continues on gentle IV hydration at 75 ML per hour and will continue for now. Patient was hyponatremic at 125 and today's sodium level is 129. 09/01/2021 Patient is seen in follow-up this morning and overnight developed progressing worsening shortness of breath and currently on 15 L high flow nasal cannula. Nursing staff patient continues to remove oxygen and dropping down into the 70s and 80s oxygen saturation. Patient continues with a cough and rhonchi noted throughout on exam. Sodium level has dropped back down to 125 and will consult nephrology. Patient is extremely hard of hearing. Chest x-ray today shows interstitial and patchy left-sided infiltrates that are mildly progressed. Pulmonary and infectious disease following as well. 09/02/2021 Patient is seen in follow-up this morning with worsening respirations and difficulty in breathing and maintained on 15 L high flow along with nonrebreather and working to breathe with continued cough. Pulmonary and infectious disease following closely and patient started on Baricitinib and maintained on vitamin and zinc supplements along with Lovenox and IV dexamethasone and will continue. Patient being transitioned to Airvo with respiratory following closely as well. Discussed CODE STATUS with the patient and he wishes to remain full code. Nephrology also consulted for hyponatremia and IV fluids have been discontinued and patient is receiving a dose of IV Lasix today. 09/03/2021 Patient is seen in the ICU. Yesterday evening around 6 o'clock patient's condition has deteriorated and rapid response team was called and the patient was in A. fib with RVR and subsequently had worsening difficulty in breathing and required stat intubation with transfer to the ICU. He is currently on a ventilator. ABGs from this morning showing pH of 7.24, PCO2 of 47 and PO2 of 121 on 100% FiO2. Patient's blood pressure running on the lower side and he is on Levophed and amiodarone drip. He is sedated. 09/04/2021 Patient is seen and examined in the ICU. Patient continues to be on mechanical ventilator requiring 65% FiO2 with a PEEP of 15 saturating at low 90s. Patient continues to be on Levophed, to maintain a map of about 65. Lovenox has been discontinued and patient is started on Eliquis for anticoagulation in view of his atrial fibrillation. On 09/05/2021 Patient is seen and examined in the ICU. Patient is intubated and mechanically ventilated. Patient has been in and out of atrial fibrillation, currently A. fib with rapid RVR. He is being maintained on Cardizem drip and he is on Eliquis for anticoagulation. On reviewing the vitals blood pressure 109 x 72. Reviewed ABGs from this morning showing pH of 7.24, PCO2 54, PO2 of 59. He is on 65% FiO2 with PEEP of 15 saturating around 90%. On reviewing his labs from this morning white count of 13.1, hemoglobin 14.9, platelets 311. Sodium 130, potassium 4.9, chloride 103, bicarb 21, BUN 47, creatinine 1.53. 09/06/2021 Patient is seen and evaluated in follow-up continues to be closely monitored in the ICU with multiple medical consultations following including pulmonary, cardiology, nephrology. Patient is intubated and sedated. Patient on multiple drips including propofol for sedation, norepinephrine, Cardizem, amiodarone, IV cefepime. Patient was given a dose of IV Lasix today and is maintained on sodium bicarb tablets with nephrology following closely. Prognosis remains extremely guarded. Patient is also maintained on IV cefepime and white blood count trending down although continues to be elevated and patient has been having intermittent low-grade temps and continues to be in A. fib with RVR. Kidney functions worsening in creatinine elevated at 1.19 today. 09/07/2021 Patient is Seen and evaluated and follow-up this morning in the ICU being closely monitored with multiple medical consultations following. Patient contin ues to be intubated and sedated. Patient has been off Cardizem drip and transition to oral amiodarone with cardiology following closely. Patient continues on Eliquis for anticoagulation along with IV dexamethasone, propofol, IV cefepime, norepinephrine. Nimbex is also been discontinued. Patient's kidney functions continue to worsen and nephrology is following closely. Sodium slightly improved at 132. Potassium was 5.5 and repeat potassium was 6.1 and will correct. 09/08/2021 Patient is seen in follow up today and continues to be intubated and sedated and closely monitored in the ICU. Kidney functions have become significantly worse and will be initiating hemodialysis therapy. Nephrology following closely and vascular surgery has been consulted for dialysis cath placement. Prognosis remains guarded with multiple medical consultations following. Nursing staff reports no bowel movement in days and abdomen is soft but distended. Will add fleet enema. Urine output continues to be 15-30Ml per hour. Labs: White blood count is 30.0, hemoglobin is 11.8, platelets are 368, sodium is 132, potassium is 6.2, BUN is 134, creatinine is 4.0 Review of systems: unable to obtain as patient is intubated and sedated All medications have been reviewed Active Medications Acetaminophen (Acetaminophen Tab 325 Mg Tab) 650 mg PO Q6HR PRN PRN Reason: Mild Pain or Fever > 100.5 Last Admin: 09/07/21 12:02 Dose: 650 mg Documented by: Albuterol Sulfate (Albuterol Hfa Inhaler) 2 puff INHALATION RT-QID PRN PRN Reason: Shortness Of Breath Or Wheezing Albuterol Sulfate (Albuterol Hfa Inhaler) 2 puff INHALATION RT-QID [facility] Last Admin: 09/08/21 20:26 Dose: 2 puff Documented by: Albuterol/Ipratropium (Ipratropium-Albuterol 3 Ml Neb) 3 ml INHALATION RT-QID P RN PRN Reason: Shortness Of Breath Or Wheezing Amiodarone HCl (Amiodarone 200 Mg Tab) 400 mg PO BID [facility] Last Admin: 09/08/21 19:55 Dose: 400 mg Documented by: Apixaban (Apixaban 2.5 Mg Tablet) 2.5 mg PO BID [facility]; Protocol Last Admin: 09/08/21 19:54 Dose: 2.5 mg Documented by: Ascorbic Acid (Ascorbic Acid 500 Mg Tab) 500 mg PO DAILY [facility] Last Admin: 09/08/21 09:28 Dose: 500 mg Documented by: Bisacodyl (Bisacodyl 10 Mg Supp) 10 mg RECTAL DAILY PRN PRN Reason: Constipation Last Admin: 09/08/21 05:51 Dose: 10 mg Documented by: Chlorhexidine Gluconate (Chlorhexidine Gluconate 15 Ml Cup) 15 ml MUCOUS MEM BID [facility] Last Admin: 09/08/21 19:55 Dose: 15 ml Documented by: Cholecalciferol (Cholecalciferol 25 Mcg (1000 Iu) Tablet) 100 mcg PO DAILY [facility] Last Admin: 09/08/21 09:28 Dose: 100 mcg Documented by: Dexamethasone Sodium Phosphate (Dexamethasone Sod Phosphate 10 Mg/Ml 1 Ml Vial) 6 mg IVP DAILY [facility] Last Admin: 09/08/21 09:28 Dose: 6 mg Documented by: Diltiazem HCl (Diltiazem Oral 30 Mg Tab) 30 mg PO BID [facility] Last Admin: 09/08/21 19:54 Dose: 30 mg Documented by: Propofol 1,000 mg/ IV Solution 100 mls @ 0 mls/hr IV .Q0M [facility]; Protocol Last Admin: 09/08/21 22:03 Dose: 40 mcg/kg/min, 25.68 mls/hr Documented by: Norepinephrine Bitartrate 32 (mg/ Sodium Chloride) 250 mls @ 2.416 mls/hr IV .Q24H [facility]; Protocol Last Admin: 09/08/21 14:40 Dose: Not Given Documented by: Cefepime HCl 1 gm/ Sodium (Chloride) 50 mls @ 12.5 mls/hr IVPB Q12HR [facility] Last Admin: 09/08/21 19:55 Dose: 12.5 mls/hr Documented by: Calcium Gluconate 1 gm/ Sodium (Chloride) 110 mls @ 100 mls/hr IVPB ONCE ONE Stop: 09/08/21 22:20 Last Admin: 09/08/21 21:35 Dose: 100 mls/hr Documented by: Insulin Aspart (Insulin Aspart (Novolog) 100 Unit/Ml Vial) 0 unit SQ Q6H [facility]; Protocol Last Admin: 09/08/21 18:42 Dose: 2 unit Documented by: Pantoprazole Sodium (Pantoprazole 40 Mg/10 Ml Vial) 40 mg IVP DAILY [facility] Last Admin: 09/08/21 09:27 Dose: 40 mg Documented by: Pravastatin Sodium (Pravastatin Sodium 20 Mg Tab) 10 mg PO HS [facility] Last Admin: 09/08/21 19:55 Dose: 10 mg Documented by: Sodium Bicarbonate (Sodium Bicarbonate Tab 650 Mg Tab) 650 mg PO BID [facility] Last Admin: 09/08/21 19:55 Dose: 650 mg Documented by: Zinc Sulfate (Zinc Sulfate 220 Mg Cap) 220 mg PO DAILY [facility] Last Admin: 09/08/21 09:28 Dose: 220 mg Documented by: PHYSICAL EXAMINATION: GENERAL: intubated in the ICU, and sedated. Temp is 99.1F, pulse is 128, respirations are 32, blood pressure is 134/78, arterial pressure is 115/61, oxygen saturation is 88% on 100% FiO2 mechanical vent HEENT: Pupils are round . EOMI. No scleral icterus. No conjunctival pallor. OG tube in place. CARDIOVASCULAR: S1 and S2 muffled, irregular PULMONARY: Diminished breath sounds with scattered coarse rhonchi and crackles noted bilaterally ABDOMEN: Soft, nontender, nondistended, normoactive bowel sounds. No palpable organomegaly. MUSCULOSKELETAL: No joint swelling or deformity. EXTREMITIES: No cyanosis, clubbing, or pedal edema. Muscle wasting noted with some generalized lower extremity edema noted NEUROLOGICAL: sedated SKIN: No rashes. Assessment and plan: -Covid 19 pneumonia -Acute on chronic Hypoxic respiratory failure secondary to above requiring mechanical ventilation -Hyponatremia -Hyperkalemia -Acute kidney injury with oliguria, now requiring hemodialysis -Atrial fibrillation with RVR -History of paroxysmal atrial fibrillation -Chronic hypercapnic respiratory failure secondary to COPD with mild acute exacerbation -Hypertension -Hyperlipidemia -Muscle wasting -Benign prostatic hypertrophy -DVT prophylaxis: Lovenox -GI prophylaxis -Full code Plan: Recommend to continue with current medications and management. Infectious disease, cardiology, nephrology, and pulmonary following. Patient continues on IV antibiotics in the form of cefepime Patient continues on mechanical vent intubated and sedated and cardiology following and continuing on oral amiodarone and oral Cardizem being started . Patient continues on propofol for sedation along with IV dexamethasone and norepinephrine. Patient also continues on vitamin and zinc supplements along with oral anticoagulant with Eliquis. Eliquis held this morning for catheter placement. Nephrology also following closely and maintain on sodium bicarb tablets as kidney functions continue to worsen. Patient now requiring hemodialysis with first session starting today. Due to multiple complex medical issues, Prognosis is extremely poor and guarded. Objective - Vital Signs Vital signs: Vital Signs Temp 99.4 F 09/08/21 04:00 Pulse 123 H 09/08/21 07:00 Resp 29 H 09/08/21 07:00 BP 114/76 09/08/21 07:00 Pulse Ox 88 L 09/08/21 07:00 Intake & Output 09/07/21 09/08/21 09/08/21 18:59 06:59 18:59 Intake Total 1254.690 798.864 78.011 Output Total 345 325 Balance 909.690 473.864 78.011 Weight 107 kg 111 kg Intake: IV 243 260 .9 243 260 Intake, IV Titration 736.690 358.864 78.011 Amount Calcium Gluconate 1 gm In 100 Sodium Chloride 0.9% 100 ml @ 100 mls/hr IVPB ONCE ONE Rx#:[id number] Diltiazem 125 mg In 114.833 Sodium Chloride 0.9% 100 ml @ Per Protocol IV .Q0M [facility] Rx#:[id number] Norepinephrine 32 mg In 66.288 36.875 Sodium Chloride 0.9% 218 ml @ 0.05 MCG/KG/MIN 2. 416 mls/hr IV .Q24H [facility] Rx#:[id number] propofoL 1,000 mg In 455.569 321.989 78.011 Empty Bag 1 bag @ Titrate IV .Q0M [facility] Rx#: [id number] Tube Feeding 125 120 Other 150 60 Output: Urine 345 325 Other: Voiding Method Indwelling Catheter Indwelling Catheter ABP, PAP, CO, CI - Last Documented Arterial Blood Pressure 122/62 - Labs CBC & Chem 7: 09/08/21 04:25 09/08/21 20:27 Labs: Abnormal Lab Results - Last 24 Hours (Table) 09/07/21 09/07/21 09/07/21 Range/Units 02:35 11:36 15:45 WBC (3.8-10.6) k/uL RBC (4.30-5.90) m/uL Hgb (13.0-17.5) gm/dL Hct (39.0-53.0) % Neutrophils # (Manual) 24.80 H (1.3-7.7) k/uL Lymphocytes # (Manual) 0.53 L (1.0-4.8) k/uL Monocytes # (Manual) (0-1.0) k/uL Metamyelocytes # (Man) 0.27 H (0) k/uL Myelocytes # (Manual) 0.53 H (0) k/uL ABG pH (7.35-7.45) ABG pCO2 (35-45) mmHg ABG pO2 (83-108) mmHg ABG HCO3 (21-25) mmol/L ABG Total CO2 (19-24) mmol/L ABG O2 Saturation (94-97) % Sodium (137-145) mmol/L Potassium 6.1 H* (3.5-5.1) mmol/L BUN (9-20) mg/dL Creatinine (0.66-1.25) mg/dL Glucose (74-99) mg/dL POC Glucose (mg/dL) 128 H (75-99) mg/dL Calcium (8.4-10.2) mg/dL Total Protein (6.3-8.2) g/dL Albumin (3.5-5.0) g/dL 09/07/21 09/07/21 09/07/21 Range/Units 17:55 20:20 20:20 WBC (3.8-10.6) k/uL RBC (4.30-5.90) m/uL Hgb (13.0-17.5) gm/dL Hct (39.0-53.0) % Neutrophils # (Manual) (1.3-7.7) k/uL Lymphocytes # (Manual) (1.0-4.8) k/uL Monocytes # (Manual) (0-1.0) k/uL Metamyelocytes # (Man) (0) k/uL Myelocytes # (Manual) (0) k/uL ABG pH (7.35-7.45) ABG pCO2 (35-45) mmHg ABG pO2 (83-108) mmHg ABG HCO3 (21-25) mmol/L ABG Total CO2 (19-24) mmol/L ABG O2 Saturation (94-97) % Sodium 132 L (137-145) mmol/L Potassium 5.9 H 5.9 H (3.5-5.1) mmol/L BUN 118 H* (9-20) mg/dL Creatinine 3.66 H (0.66-1.25) mg/dL Glucose 150 H (74-99) mg/dL POC Glucose (mg/dL) 141 H (75-99) mg/dL Calcium 8.2 L (8.4-10.2) mg/dL Total Protein 5.1 L (6.3-8.2) g/dL Albumin 2.3 L (3.5-5.0) g/dL 09/07/21 09/07/21 09/07/21 Range/Units 21:31 22:07 23:47 WBC (3.8-10.6) k/uL RBC (4.30-5.90) m/uL Hgb (13.0-17.5) gm/dL Hct (39.0-53.0) % Neutrophils # (Manual) (1.3-7.7) k/uL Lymphocytes # (Manual) (1.0-4.8) k/uL Monocytes # (Manual) (0-1.0) k/uL Metamyelocytes # (Man) (0) k/uL Myelocytes # (Manual) (0) k/uL ABG pH 7.26 L (7.35-7.45) ABG pCO2 62 H (35-45) mmHg ABG pO2 52 L* (83-108) mmHg ABG HCO3 28 H (21-25) mmol/L ABG Total CO2 30 H (19-24) mmol/L ABG O2 Saturation 84.0 L (94-97) % Sodium (137-145) mmol/L Potassium (3.5-5.1) mmol/L BUN (9-20) mg/dL Creatinine (0.66-1.25) mg/dL Glucose (74-99) mg/dL POC Glucose (mg/dL) 152 H 132 H (75-99) mg/dL Calcium (8.4-10.2) mg/dL Total Protein (6.3-8.2) g/dL Albumin (3.5-5.0) g/dL 09/08/21 09/08/21 09/08/21 Range/Units 04:25 04:25 05:03 WBC 30.0 H (3.8-10.6) k/uL RBC 3.86 L (4.30-5.90) m/uL Hgb 11.8 L (13.0-17.5) gm/dL Hct 37.2 L (39.0-53.0) % Neutrophils # (Manual) 26.10 H (1.3-7.7) k/uL Lymphocytes # (Manual) (1.0-4.8) k/uL Monocytes # (Manual) 1.50 H (0-1.0) k/uL Metamyelocytes # (Man) 0.90 H (0) k/uL Myelocytes # (Manual) 0.60 H (0) k/uL ABG pH 7.25 L (7.35-7.45) ABG pCO2 58 H (35-45) mmHg ABG pO2 65 L (83-108) mmHg ABG HCO3 26 H (21-25) mmol/L ABG Total CO2 28 H (19-24) mmol/L ABG O2 Saturation 90.8 L (94-97) % Sodium 132 L (137-145) mmol/L Potassium 6.0 H (3.5-5.1) mmol/L BUN 134 H* (9-20) mg/dL Creatinine 4.00 H (0.66-1.25) mg/dL Glucose 138 H (74-99) mg/dL POC Glucose (mg/dL) (75-99) mg/dL Calcium 8.2 L (8.4-10.2) mg/dL Total Protein 5.1 L (6.3-8.2) g/dL Albumin 2.3 L (3.5-5.0) g/dL 09/08/21 Range/Units 05:40 WBC (3.8-10.6) k/uL RBC (4.30-5.90) m/uL Hgb (13.0-17.5) gm/dL Hct (39.0-53.0) % Neutrophils # (Manual) (1.3-7.7) k/uL Lymphocytes # (Manual) (1.0-4.8) k/uL Monocytes # (Manual) (0-1.0) k/uL Metamyelocytes # (Man) (0) k/uL Myelocytes # (Manual) (0) k/uL ABG pH (7.35-7.45) ABG pCO2 (35-45) mmHg ABG pO2 (83-108) mmHg ABG HCO3 (21-25) mmol/L ABG Total CO2 (19-24) mmol/L ABG O2 Saturation (94-97) % Sodium (137-145) mmol/L Potassium (3.5-5.1) mmol/L BUN (9-20) mg/dL Creatinine (0.66-1.25) mg/dL Glucose (74-99) mg/dL POC Glucose (mg/dL) 134 H (75-99) mg/dL Calcium (8.4-10.2) mg/dL Total Protein (6.3-8.2) g/dL Albumin (3.5-5.0) g/dL Microbiology - Last 24 Hours (Table) 09/05/21 15:57 Blood Culture - Preliminary Blood No Growth after 48 hours 09/05/21 15:56 Blood Culture - Preliminary Blood No Growth after 48 hours 09/06/21 03:18 Gram Stain - Preliminary Sputum Sputum Culture - Preliminary Gram Neg Bacilli 09/03/21 01:22 Gram Stain - Final Sputum Sputum Culture - Final Pseudomonas aeruginosa
[2021-09-08 23:56] LABS: Glucose,Whole Blood 131 mg/dL (75-99)
[2021-09-09] MEDS: INSULIN ASPART (NovoLOG) 100 UNIT/ML VIAL SQ SCH ×4 (00:38→17:58)
[2021-09-09] MEDS: NOREPINEPHRINE 32 MG in SODIUM CHLORIDE 0.9% 218 ML IV SCH (01:17)
[2021-09-09] MEDS ORDERED: DEXTROSE 50% SYRINGE 50 ML IVP STA ×3 (03:01→19:21)
[2021-09-09] MEDS ORDERED: SODIUM BICARB 8.4% 50 ML SYR (1 MEQ/ML) IV STA ×3 (03:02→19:37)
[2021-09-09] MEDS ORDERED: INSULIN REGULAR 100 UNIT/ML VIAL (IV) IV ONE ×3 (03:03→19:21)
[2021-09-09] MEDS ORDERED: CALCIUM GLUCONATE 1 GM in SODIUM CHLORIDE 0.9% 100 ML IVPB ONE ×3 (03:15→18:03)
[2021-09-09 04:56] LABS: ABG Base Excess 0.9 mmol/L; ABG HCO3 29 mmol/L (21-25); ABG Oxygen Saturation 92.4 % (94-97); ABG PCO2 68 mmHg (35-45); ABG PH 7.23 (7.35-7.45); ABG PO2 73 mmHg (83-108); ABG TCO2 31 mmol/L (19-24); Allen Test Performed? Yes
[2021-09-09 06:24] LABS: Glucose,Whole Blood 128 mg/dL (75-99)
[2021-09-09 06:29] LABS: Albumin 2.5 g/dL (3.5-5.0); Calcium 9.1 mg/dL (8.4-10.2); Total Bilirubin 0.4 mg/dL (0.2-1.3); Total Protein 5.4 g/dL (6.3-8.2)
[2021-09-09 06:45] LABS: HGB 11.8 gm/dL (13.0-17.5); MCH 30.3 pg (25.0-35.0); MCHC 31.1 g/dL (31.0-37.0); MCV 97.4 fL (80.0-100.0); Platelet Count 389 k/uL (150-450); RDW 13.3 % (11.5-15.5)
[2021-09-09 06:52] LABS: Phosphorus 10.3 mg/dL (2.5-4.5); Potassium 6.3 mmol/L (3.5-5.1)
[2021-09-09] MEDS: ALBUTEROL HFA INHALER INHALATION SCH ×4 (07:23→20:47)
[2021-09-09 08:14] VITALS: BMI 34.9
[2021-09-09] MEDS: PANTOPRAZOLE 40 MG/10 ML VIAL IVP SCH (08:16)
[2021-09-09] MEDS: ZINC SULFATE 220 MG CAP PO SCH (08:17)
[2021-09-09] MEDS: DILTIAZEM ORAL 30 MG TAB PO SCH ×2 (08:17→20:38)
[2021-09-09] MEDS: CHOLECALCIFEROL 25 MCG (1000 IU) TABLET PO SCH (08:17)
[2021-09-09] MEDS: AMIODARONE 200 MG TAB PO SCH ×2 (08:17→20:38)
[2021-09-09] MEDS: ASCORBIC ACID 500 MG TAB PO SCH (08:17)
[2021-09-09] MEDS: SODIUM BICARBONATE TAB 650 MG TAB PO SCH ×2 (08:17→20:38)
[2021-09-09] MEDS: APIXABAN 2.5 MG TABLET PO SCH ×2 (08:19→20:38)
[2021-09-09] MEDS: DEXAMETHASONE SOD PHOSPHATE 10 MG/ML 1 ML VIAL IVP SCH (08:19)
[2021-09-09] MEDS: CHLORHEXIDINE GLUCONATE 15 ML CUP MUCOUS MEM SCH ×2 (08:20→20:38)
[2021-09-09] MEDS: CEFEPIME 1 GM in SODIUM CHLORIDE 0.9% 50 ML IVPB SCH ×2 (08:33→20:38)
--- NOTE | 2021-09-09 08:48 | P.PN ---
Subjective Patient is seen in follow-up for acute kidney injury. Started on hemodialysis September 08 due to worsening renal failure and hyperkalemia. Patient is oliguric. Intubated. On Levophed. Receiving tube feeds. Vital signs are stable. On vasopressor support. HEENT: Intubated. Tachycardic. No edema. Breath sounds decreased. Objective - Vital Signs Vital signs: Vital Signs Temp 98.1 F 09/09/21 04:00 Pulse 144 H 09/09/21 07:30 Resp 30 H 09/09/21 07:30 BP 104/62 09/09/21 02:00 Pulse Ox 89 L 09/09/21 07:30 Intake & Output 09/08/21 09/09/21 09/09/21 18:59 06:59 18:59 Intake Total 862.487 765.960 100 Output Total 192 115 Balance 670.487 650.960 100 Weight 110.5 kg 110.5 kg Intake: IV 276 276 .9 276 276 Intake, IV Titration 556.487 309.960 100 Amount Calcium Gluconate 1 gm In 100 Sodium Chloride 0.9% 100 ml @ 100 mls/hr IVPB ONCE ONE Rx#:[id number] Cefepime 2 gm In Sodium 100 Chloride 0.9% 100 ml @ 25 mls/hr IVPB Q12HR [facility] Rx #:[id number] Norepinephrine 32 mg In 63.004 Sodium Chloride 0.9% 218 ml @ 0.05 MCG/KG/MIN 2. 416 mls/hr IV .Q24H [facility] Rx#:[id number] propofoL 1,000 mg In 356.487 246.956 100 Empty Bag 1 bag @ Titrate IV .Q0M [facility] Rx#: [id number] Tube Feeding 30 120 Other 60 Output: Urine 192 115 Other: Voiding Method Indwelling Catheter Indwelling Catheter ABP, PAP, CO, CI - Last Documented Arterial Blood Pressure 107/58 - Labs CBC & Chem 7: 09/09/21 05:32 09/09/21 05:32 Labs: Abnormal Lab Results - Last 24 Hours (Table) 09/08/21 09/08/21 09/08/21 Range/Units 04:25 09:58 11:30 WBC (3.8-10.6) k/uL RBC (4.30-5.90) m/uL Hgb (13.0-17.5) gm/dL Hct (39.0-53.0) % ABG pH (7.35-7.45) ABG pCO2 (35-45) mmHg ABG pO2 (83-108) mmHg ABG HCO3 (21-25) mmol/L ABG Total CO2 (19-24) mmol/L ABG O2 Saturation (94-97) % Potassium 6.0 H (3.5-5.1) mmol/L BUN (9-20) mg/dL Creatinine (0.66-1.25) mg/dL Glucose (74-99) mg/dL POC Glucose (mg/dL) 125 H (75-99) mg/dL Phosphorus (2.5-4.5) mg/dL Lactate Dehydrogenase (313-618) U/L Total Protein (6.3-8.2) g/dL Albumin (3.5-5.0) g/dL Triglycerides 281.00 H (0.00-149.00) mg/dL 09/08/21 09/08/21 09/08/21 Range/Units 18:32 20:27 23:55 WBC (3.8-10.6) k/uL RBC (4.30-5.90) m/uL Hgb (13.0-17.5) gm/dL Hct (39.0-53.0) % ABG pH (7.35-7.45) ABG pCO2 (35-45) mmHg ABG pO2 (83-108) mmHg ABG HCO3 (21-25) mmol/L ABG Total CO2 (19-24) mmol/L ABG O2 Saturation (94-97) % Potassium 6.2 H* (3.5-5.1) mmol/L BUN (9-20) mg/dL Creatinine (0.66-1.25) mg/dL Glucose (74-99) mg/dL POC Glucose (mg/dL) 145 H 131 H (75-99) mg/dL Phosphorus (2.5-4.5) mg/dL Lactate Dehydrogenase (313-618) U/L Total Protein (6.3-8.2) g/dL Albumin (3.5-5.0) g/dL Triglycerides (0.00-149.00) mg/dL 09/09/21 09/09/2121 Range/Units 01:05 02:05 04:51 WBC (3.8-10.6) k/uL RBC (4.30-5.90) m/uL Hgb (13.0-17.5) gm/dL Hct (39.0-53.0) % ABG pH 7.23 L (7.35-7.45) ABG pCO2 68 H (35-45) mmHg ABG pO2 73 L (83-108) mmHg ABG HCO3 29 H (21-25) mmol/L ABG Total CO2 31 H (19-24) mmol/L ABG O2 Saturation 92.4 L (94-97) % Potassium 3.4 L 6.5 H* (3.5-5.1) mmol/L BUN (9-20) mg/dL Creatinine (0.66-1.25) mg/dL Glucose (74-99) mg/dL POC Glucose (mg/dL) (75-99) mg/dL Phosphorus (2.5-4.5) mg/dL Lactate Dehydrogenase (313-618) U/L Total Protein (6.3-8.2) g/dL Albumin (3.5-5.0) g/dL Triglycerides (0.00-149.00) mg/dL 09/09/21 09/09/21 09/09/21 Range/Units 05:32 05:32 06:23 WBC 37.3 H (3.8-10.6) k/uL RBC 3.90 L (4.30-5.90) m/uL Hgb 11.8 L (13.0-17.5) gm/dL Hct 38.0 L (39.0-53.0) % ABG pH (7.35-7.45) ABG pCO2 (35-45) mmHg ABG pO2 (83-108) mmHg ABG HCO3 (21-25) mmol/L ABG Total CO2 (19-24) mmol/L ABG O2 Saturation (94-97) % Potassium 6.3 H* (3.5-5.1) mmol/L BUN 144 H* (9-20) mg/dL Creatinine 4.62 H (0.66-1.25) mg/dL Glucose 143 H (74-99) mg/dL POC Glucose (mg/dL) 128 H (75-99) mg/dL Phosphorus 10.3 H* (2.5-4.5) mg/dL Lactate Dehydrogenase 734 H (313-618) U/L Total Protein 5.4 L (6.3-8.2) g/dL Albumin 2.5 L (3.5-5.0) g/dL Triglycerides (0.00-149.00) mg/dL Microbiology - Last 24 Hours (Table) 09/05/21 15:57 Blood Culture - Preliminary Blood No Growth after 72 hours 09/05/21 15:56 Blood Culture - Preliminary Blood No Growth after 72 hours 09/06/21 03:18 Gram Stain - Final Sputum Sputum Culture - Final Pseudomonas aeruginosa Assessment and Plan Plan: Assessment: 1. Hypovolemic hyponatremia improved with IV hydration. Also component of SIADH from respiratory infection and AARTI. Sodium level 139 today. Urine osmolality 380. 2. Acute kidney injury secondary to ATN secondary to hypotension and sepsis. Oliguric. Started on hemodialysis September 08. 3. A. fib with RVR maintained on oral amiodarone. 4. COVID-19 pneumonia. Intubated. 5. Metabolic acidosis secondary to acute kidney injury. Also has respiratory acidosis. Better. 6. Acute hypoxic respiratory failure. 7. Hyperkalemia secondary to acute kidney injury. 8. Hyperphosphatemia secondary to acute kidney injury. Plan: Second treatment of hemodialysis today and third treatment tomorrow. No improvement in urine output despite IV Lasix. Wean FiO2 and vasopressors. Maintain tube feeds. Add Renvela. Continue to monitor renal function and urine output. Repeat potassium level this evening. Patient did receive IV calcium, IV insulin with D50 as well as IV bicarb this morning.
--- NOTE | 2021-09-09 08:59 | XR ---
EXAMINATION TYPE: XR chest 1V portable DATE OF EXAM: 09/09/2021 COMPARISON: 09/08/2021 HISTORY: Shortness of breath TECHNIQUE: Single frontal view of the chest is obtained. FINDINGS: Diffuse bilateral airspace disease and small effusion stable. ET and NG tube stable. Left- sided central line stable. No pneumothorax. Heart size normal. Hypertrophic and degenerative change o f the spine. Underlying COPD suspected IMPRESSION: Correlate for a diffuse interstitial pneumonia or ARDS. CHF not excluded correlate clini jodi.
--- NOTE | 2021-09-09 08:59 | P.PN ---
Subjective Progress Note Date: 09/09/21 76-year-old male, who presents to the emergency department, on August 30. The patient has a history of atrial fibrillation, hyperlipidemia, hypertension, and COPD, history of lung herniation, and that he was home O2, at 2 L as needed. The patient presents to the emergency department with complaints of increasing shortness of breath, and cough and the patient became progressively more hypoxic requiring high levels of oxygen initially went on high flow oxygen and ultimately the patient was intubated and placed on a mechanical ventilator as of 09/02/2001. The patient remains on a mechanical ventilator on assist control mode with a tidal volume of 500, FiO2 of 65%, PEEP of 15 and the rate of 28. The peak airway pressure is 33. Static pressures 27. At this point in time, the patient is intubated, sedated currently on propofol running at 60 g per program per minute, paralyzed with Nimbex at 1 mcg/kg per minute and the patient is on a NSS rate of 20 mL an hour. The patient is also hypotensive, currently on pressors and norepinephrine infusion is running at the rate of 0.16 g per /kg/ minute. The patient remains in atrial fibrillation. The patient was quite tachycardic with underlying atrial fibrillation. The patient is currently on amiodarone drip running at 0.5 micrograms per kilogram per minute and the patient is also on Cardizem drip at 5 mg an hour. His current heart rate is in order of 125 beats per minute, irregular. The chest x-ray showing diffuse bilateral pulmonary infiltrates more so in the lower lobes bilaterally. Orotracheal tube is in a good location. The patient has a left internal jugular triple-lumen catheter in place. Orogastric tube is also in place. He does have evidence of lung herniation on the left. The patient was started on enteral feeding for nutritional support and the patient is receiving vital AF at the rate of 15 mL an hour. The patient is currently on Decadron 6 mg IV every 24 hours. The patient is on long-term and correlation with Eliquis 5 mg by mouth twice a day. Blood work from today shows a sodium level of 1:30. This is improved compared to yesterday. The patient is developing acute kidney injury. Creatinine is up to 1.5 from a baseline of 1.06 and creatinine is up to 47. In terms of his inflammatory markers, LDH from 09/03/2021 was 1179 with a CRP of 20. His white cell count is up to 31.7. The patient is afebrile. Nevertheless, based on his underlying hypotension and new onset leukocytosis, a super infection is highly considered in this patient. His most recent pro- calcitonin level is 0.1 and this is from 08/30/2021 and this is to be repeated. The patient is not receiving any form of antibiotic coverage at this point in time. On today's evaluation of 09/06/2021, the patient is being seen for a follow-up. As of yesterday, I took the patient off paralytics and the patient is currently on propofol running at 70 mg/kg per minute. Is adequately sedated for now and his symptoms of the mechanical ventilator. He remains on the respirator with an assist-control mode at the rate of 28 and a tidal volume of 500 and FiO2 of 85% and a PEEP of 15. Peak airway pressure 31. Static pressure is 30. The chest x-ray showing diffuse bilateral pulmonary infiltrates consistent with coronary ventilated pneumonia. At the same time, orotracheal tube is in a good location. OG tube is also adequate location. No evidence of any subcutaneous emphysema. There is increased consolidation in the right lung base and the patient has a left IJ triple-lumen catheter in place. He remains on pressors and the patient is currently on norepinephrine running at 0.22 mcg/kg per minute. Yesterday, was concerned of a super infection. Cultures were sent and the patient was started on IV cefepime. He remains afebrile. White cell count is down to 24 which is improved compared to yesterday. His blood gases from today showing a pH of 7.21 with a pCO2 of 55 and pO2 of 58. He is currently on IV cefepime. Pending further blood cultures. Meanwhile, there is been some interval worsening his renal function. Creatinine is up to 1.9 with a BUN of 64. Sodium level is at 129. Overall fluid balance is in the order of 1.1 L positive over the past 24 hours. Not urine output was in the order of 900 mL since yesterday. The patient is receiving enteral feeding for nutritional support. He is on vital AF at the rate of 15 mL an hour. His white cell count is down to 24. Hemoglobin stable at 14. Sodium level is at 129. Serum bicarbs at 20. LDH level is down to 794 with a CRP of 37.4. He remains on Eliquis regarding his ongoing nature fibrillation. In terms of his A. fib, rate is under better control. He is on amiodarone running at 0.5 mg per minute and Cardizem drip running at 5 mg an hour. Otherwise, no other significant events. Condition remains quite critical at this point in time. 09/07/2021 the patient is being seen for a follow-up. On today's evaluation, I have the patient sedated with propofol and the patient is running at 70 mcg/kg per minute. He remains well sedated. He is calm and comfortable and suggested a mechanical ventilator. He continues to be on assist-control mode, the ventilator settings are essentially unchanged compared to yesterday. His weight is a 28 with a tidal volume of 500 and FiO2 of 85% with a PEEP of 15. The peak airway pressure is 35 on today's evaluation with metastatic tumor pressure of 32. The chest x-ray remains unchanged with diffuse bilateral pulmonary infiltrates. ET tube is in a good location. Blood gases from today showed a pH of 7.25 with a pCO2 of 56 and pO2 of 57 which is essentially compatible to yesterday. As such, no major interval change in his overall pulmonary status, or oxygenation. His sputum is growing gram-negative bacillus. Final culture are still pending. Meanwhile the patient is on IV cefepime. He has been afebrile and he spike a temperature of 100.5 today. He remains on IV cefepime. He is hemodynamically hypotensive still and the patient is still on pressors have been reduced compared to yesterday and currently on 0.15 mcg/kg per minute of norepinephrine infusion. Urine output is in order of 30 mL an hour. The patient has developed progressive renal failure. Creatinine is at 2.9 and the patient is unemployed positive fluid balance of 2.9 L. Nephrology is on the case. We are avoiding nephrotoxic agents. The patient was given a dose of Lasix yesterday with some limited response. He is receiving enteral feeding for nutritional support and currently is on vital AF at the rate of 15 mL an hour. His underlying cardiac rhythm is A. fib and the rate is around 110 and the skye ent remains on Cardizem drip at 5 mg an hour and the patient is also on by mouth amiodarone. Anticoagulations with Eliquis and the dose has to be modified bases underlying renal failure. Currently is receiving 5 mg twice a day and disability is down to 2.5 mg twice a day. Rest of the electrodes are stable. Inflammatory markers are pending from today. Note that his LDH was coming down and the last level was down to 784. 09/08/2021, the patient is being seen for a follow-up. As morning, he remains sedated on propofol is running at 40 mcg/kg per minute. He is calm and comfortable and synchronous with the mechanical ventilator. I had to make some adjustments on his ventilator setting of the patient was becoming hypoxic yesterday. For now, and this morning, he is on a rate of 28 with a tidal volume of 500 and FiO2 of 100% and PEEP was brought up to 18. His peak airway pressure is 35 with a static pressure of 33. His pH is at 7.25 with a pCO2 of 58 and pO2 of 65. Chest x-ray still showing diffuse bilateral pulmonary infiltrates consistent with coronary ventilated pneumonia. The sputum Gram stain was possible gram-negative bacteria and ultimately decided not to be pseudomonas aeruginosa and the patient is currently on IV cefepime. White cell count is currently as at 30.0. He was on pressors and he was requiring high-dose pressors and ultimately this has been weaned down to 0.05 mcg/kg per minute of norepinephrine infusion. His most recent blood pressure is adequate. His urine output is order of 10-15 mL an hour. He has developed an acute kidney injury. Creatinine is up to 4.0 with a BUN of 134. Potassium is up to 6.0. Earlier this morning, he was treated for his hyperkalemia and he was given bicarb and D50 along with insulin. His cardiac rhythm is still in atrial fibrillation. He is on and off tachycardic. He has been on amiodarone and he is currently on oral 400 mg by mouth twice a day. He is Eliquis dose was adjusted yesterday to 2.5 mg twice a day and this will be further stopped in preparation for a dialysis catheter insertion as recommended by nephrology. He has developed some third space and fluid overload. He has increased edema in all 4 extremities. His fluid balance is +1.3 L over the past 24 hours. Otherwise, he remains on De cadron 6 mg IV every 24 hours. Inflammatory markers have dropped down to 794 LDH and 30 7.4F CRP. Sodium level is at 132. Serum bicarbonate is currently at 23. He is receiving enteral feeding for nutritional support. He is currently on Nepro at the rate of 10 mL an hour. 09/09/2021 St. patient for a follow-up. This morning, the patient is undergoing dialysis again as the patient's potassium level is again elevated. Urine output is quite minimal at this point, the patient is produced only 60 mL over the past 24 hours. His potassium level today is at 6.3 and the patient is started on he modialysis with a goal of ultrafiltration of 1.3 L. Meanwhile, he remains intubated on a mechanical ventilator and i sedated. Propofol is running at the rate of 40 mcg/kg per minute and think is a mechanical ventilator. He is an assist-control mode and this morning he is on a tidal volume of 500 with an FiO2 of 100% with a PEEP of 18 and at a respiratory rate of 28. Peak airway pressures 36. Static pressures 31. His chest x-ray showing diffuse bilateral pulmonary infiltrates consistent with coronary ventilated pneumonia and superinfection with pseudomonas aeruginosa. Note that I had 2 sputum sample growing pseudomonas aeruginosa and the patient is currently on IV cefepime and the microorganism is sensitive so IV cefepime. His white cell count is on the rise and is currently up to 37.3. He is afebrile for the time being. Nevertheless, his pressure is soft and his pressor requirements have been fluctuating. For instance, yesterday, had been down to as low as 0.05 mcg/kg per minute of norepinephrine infusion and since yesterday, his pressor requirements have significantly increased and the patient currently is on norepinephrine running at 0.15 mcg/kg per minute. His systolic blood pressures the mid 90s. He remains nature fibrillation. Rate is quite tachycardic and the heart rate is ranging between 110 and 140. His blood pressure may further fluctuate during dialysis. I have him on oral amiodarone drip for a milligrams by mouth twice a day. He is also on oral Cardizem. He is also receiving long- term articulation with Eliquis 2.5 mg twice a day. In terms of his old work, his white cell count is up to 37.3 with a hemoglobin of 11.8. His BUN is on a 44 with a creatinine of 4.6. As mentioned, his potassium level is at 6.3. His blood gases from today shows a pH of 7.22 with a pCO2 of 68 and pO2 of 77. He remains on Nepro for enteral feeding and nutritional support and this is running at the rate of 10 mL an hour. As mentioned earlier, he does have some mild cardiomyopathy with ejection fraction of 40%. In terms of his inflammatory markers, his LDH level is at 734, CRP is pending for now, his serum bicarbonate is a 26, and his blood sugars adequate to control and is 128 from this morning. LFTs are within normal limits. Family has been updated on his condition on a daily basis. Objective - Vital Signs Vital signs: Vital Signs Temp 98.1 F 09/09/21 04:00 Pulse 144 H 09/09/21 07:30 Resp 30 H 09/09/21 07:30 BP 104/62 09/09/21 02:00 Pulse Ox 89 L 09/09/21 07:30 Intake & Output 09/08/21 09/09/21 09/09/21 18:59 06:59 18:59 Intake Total 862.487 765.960 100 Output Total 192 115 Balance 670.487 650.960 100 Weight 110.5 kg 110.5 kg Intake: IV 276 276 .9 276 276 Intake, IV Titration 556.487 309.960 100 Amount Calcium Gluconate 1 gm In 100 Sodium Chloride 0.9% 100 ml @ 100 mls/hr IVPB ONCE ONE Rx#:[id number] Cefepime 2 gm In Sodium 100 Chloride 0.9% 100 ml @ 25 mls/hr IVPB Q12HR [facility] Rx #:[id number] Norepinephrine 32 mg In 63.004 Sodium Chloride 0.9% 218 ml @ 0.05 MCG/KG/MIN 2. 416 mls/hr IV .Q24H [facility] Rx#:[id number] propofoL 1,000 mg In 356.487 246.956 100 Empty Bag 1 bag @ Titrate IV .Q0M [facility] Rx#: [id number] Tube Feeding 30 120 Other 60 Output: Urine 192 115 Other: Voiding Method Indwelling Catheter Indwelling Catheter ABP, PAP, CO, CI - Last Documented Arterial Blood Pressure 107/58 - Exam No acute distress, currently sedated , with an orally placed endotracheal tube and NG tube. The patient has a triple lumen cath in his left IJ HEENT examination is grossly unremarkable. Neck supple. Full range of motion. No adenopathy thyromegaly or neck vein distention. Cardiovascular examination reveals regular rhythm rate. S1-S2 normal. No S3 or S4. No discernible murmur noted. Heart sounds are distant. Heart rate 122 bpm. Lungs reveal coarse bilateral rhonchi. No wheezes or crackles. Breath sounds equal. Abdomen soft with bowel sounds. No masses or tenderness. Extremities are intact. No cyanosis clubbing and the patient is developing third spacing and edema in all 4 extremities. Skin is without rash or lesion. Neurologic examination cannot be adequately assessed as the patient is currently sedated , pupils around 3 mm in size and they're symmetrical and reactive to light. - Labs CBC & Chem 7: 09/09/21 05:32 09/09/21 05:32 Labs: Abnormal Lab Results - Last 24 Hours (Table) 09/08/21 09/08/21 09/08/21 Range/Units 04:25 09:58 11:30 WBC (3.8-10.6) k/uL RBC (4.30-5.90) m/uL Hgb (13.0-17.5) gm/dL Hct (39.0-53.0) % ABG pH (7.35-7.45) ABG pCO2 (35-45) mmHg ABG pO2 (83-108) mmHg ABG HCO3 (21-25) mmol/L ABG Total CO2 (19-24) mmol/L ABG O2 Saturation (94-97) % Potassium 6.0 H (3.5-5.1) mmol/L BUN (9-20) mg/dL Creatinine (0.66-1.25) mg/dL Glucose (74-99) mg/dL POC Glucose (mg/dL) 125 H (75-99) mg/dL Phosphorus (2.5-4.5) mg/dL Lactate Dehydrogenase (313-618) U/L Total Protein (6.3-8.2) g/dL Albumin (3.5-5.0) g/dL Triglycerides 281.00 H (0.00-149.00) mg/dL 09/08/21 09/08/21 09/08/21 Range/Units 18:32 20:27 23:55 WBC (3.8-10.6) k/uL RBC (4.30-5.90) m/uL Hgb (13.0-17.5) gm/dL Hct (39.0-53.0) % ABG pH (7.35-7.45) ABG pCO2 (35-45) mmHg ABG pO2 (83-108) mmHg ABG HCO3 (21-25) mmol/L ABG Total CO2 (19-24) mmol/L ABG O2 Saturation (94-97) % Potassium 6.2 H* (3.5-5.1) mmol/L BUN (9-20) mg/dL Creatinine (0.66-1.25) mg/dL Glucose (74-99) mg/dL POC Glucose (mg/dL) 145 H 131 H (75-99) mg/dL Phosphorus (2.5-4.5) mg/dL Lactate Dehydrogenase (313-618) U/L Total Protein (6.3-8.2) g/dL Albumin (3.5-5.0) g/dL Triglycerides (0.00-149.00) mg/dL 09/09/21 09/09/21 09/09/21 Range/Units 01:05 02:05 04:51 WBC (3.8-10.6) k/uL RBC (4.30-5.90) m/uL Hgb (13.0-17.5) gm/dL Hct (39.0-53.0) % ABG pH 7.23 L (7.35-7.45) ABG pCO2 68 H (35-45) mmHg ABG pO2 73 L (83-108) mmHg ABG HCO3 29 H (21-25) mmol/L ABG Total CO2 31 H (19-24) mmol/L ABG O2 Saturation 92.4 L (94-97) % Potassium 3.4 L 6.5 H* (3.5-5.1) mmol/L BUN (9-20) mg/dL Creatinine (0.66-1.25) mg/dL Glucose (74-99) mg/dL POC Glucose (mg/dL) (75-99) mg/dL Phosphorus (2.5-4.5) mg/dL Lactate Dehydrogenase (313-618) U/L Total Protein (6.3-8.2) g/dL Albumin (3.5-5.0) g/dL Triglycerides (0.00-149.00) mg/dL 09/09/21 09/09/21 09/09/21 Range/Units 05:32 05:32 06:23 WBC 37.3 H (3.8-10.6) k/uL RBC 3.90 L (4.30-5.90) m/uL Hgb 11.8 L (13.0-17.5) gm/dL Hct 38.0 L (39.0-53.0) % ABG pH (7.35-7.45) ABG pCO2 (35-45) mmHg ABG pO2 (83-108) mmHg ABG HCO3 (21-25) mmol/L ABG Total CO2 (19-24) mmol/L ABG O2 Saturation (94-97) % Potassium 6.3 H* (3.5-5.1) mmol/L BUN 144 H* (9-20) mg/dL Creatinine 4.62 H (0.66-1.25) mg/dL Glucose 143 H (74-99) mg/dL POC Glucose (mg/dL) 128 H (75-99) mg/dL Phosphorus 10.3 H* (2.5-4.5) mg/dL Lactate Dehydrogenase 734 H (313-618) U/L Total Protein 5.4 L (6.3-8.2) g/dL Albumin 2.5 L (3.5-5.0) g/dL Triglycerides (0.00-149.00) mg/dL Microbiology - Last 24 Hours (Table) 09/05/21 15:57 Blood Culture - Preliminary Blood No Growth after 72 hours 09/05/21 15:56 Blood Culture - Preliminary Blood No Growth after 72 hours 09/06/21 03:18 Gram Stain - Final Sputum Sputum Culture - Final Pseudomonas aeruginosa Assessment and Plan Plan: 1 Acute hypoxemic respiratory failure, secondary to coronavirus COVID 19 - associated pneumonia. Status post intubation and mechanical ventilation, on 09/02/2021, for worsening hypoxemic respiratory failure. The patient remains intubated on a mechanical ventilator. Chest x-ray findings are essentially the same with diffuse but the pulmonary infiltrates. Unfortunately, not a lot of progress since yesterday. The patient is superinfection with pseudomonas aeruginosa could be a ventilator associated pneumonia and the patient is covered with IV cefepime. Hemodynamically, he still running a low blood pressure and is being supported with inotropes in the form of norepinephrine infusion. He has also developed an acute kidney injury and he is receiving dialysis on a daily basis. In terms of his mechanical ventilator, he is on a PEEP of 18 with an FiO2 of 100%. Chest x-ray was noted. Blood gases was noted. Peak and static pressure remains quite elevated at this point in time. No evidence of any p neumothorax. No subcutaneous emphysema. 2 History of atrial fibrillation. The patient is currently on oral amiodarone, still tachycardic, and the patient is an to correlated with Eliquis 2.5 mg twice a day 3 systolic heart failure with an ejection fraction 40-45% 4 pseudomonas aeruginosa pneumonia with secondary Sepsis with hypotension currently on pressors with norepinephrine infusion running at 0.15 mcg/kg per minute. , As such the patient is considered to have ongoing component of se psis with hypotension. 5 COPD, with chronic hypoxemic respiratory failure. 6 acute kidney injury the patient is dialysis dependent for now, he underwent dialysis yesterday and another session is being performed today with a goal of ultrafiltration of 1.3 L and the potassium level due to be checked following his dialysis. Urine output is quite diminished at this point in time. 7 pseudomonas aeruginosa in the sputum, consider a ventilator associated pneumonia or hospital-acquired pneumonia post Covid 90 related pneumonia and respiratory failure.The patient was taken Baricitinib which was discontinued 4 days ago and the patient is currently on Decadron only. 8 obstructive sleep apnea syndrome. Not utilizing or nontolerant to CPAP therapy on outpatient basis 9 Valvular heart disease. Please refer to the most recent echocardiogram. Ejection fraction is 40-45%.No significant valvular abnormalities based on the most recent echo the 10 Status post left thoracotomy for closure of diaphragmatic hernia. 11 history of hypertension 12 history of hyperlipidemia 13 BPH 14 Mnire's disease Plan: Continue ventilator support. The patient is currently on PEEP 18. With an FiO2 of 100%. No ventilator changes for today The patient is found to have a pseudomonas aeruginosa and the patient is currently on IV cefepime. Continue vasopressors and attempt to wean off the pressors if possible. This may not be possible as the patient is undergoing dialysis and this may be attemp altaf at a later stage once dialysis is completed Proceed with hemodialysis today and repeat the potassium level postdialysis Continue sedation with propofol, check triglyceride levels as the patient has been on propofol for nearly a week Continue IV cefepime 2 g every 12 hours Continue Decadron Repeat inflammatory markers for tomorrow including LDH and CRP Continue oral amiodarone Monitor renal function Continue enteral feeding for nutritional support Condition is obvious the critical and outcomes poor baseline above-mentioned comorbidities. We'll continue to follow, critical care evaluation more than 30 minutes. Time with Patient: Greater than 30
[2021-09-09 09:05] LABS: Band Neutrophils % 1 %; Lymphocytes # (M) 0.37 k/uL (1.0-4.8); Metamyelocytes # (M) 0.73 k/uL (0); Metamyelocytes % 2 %; Monocytes # (M) 1.83 k/uL (0-1.0); Myelocytes % 3 %; Neutrophils % (M) 89 %; Nucleated Red Blood Cells 2 /100 WBC (0-0); Total Cells Counted 200; WBC 36.6 k/uL (3.8-10.6)
--- NOTE | 2021-09-09 11:31 | P.PN ---
Subjective Progress Note Date: 09/09/21 This 76-year-old gentleman is admitted to hospital with Covid pneumonia and hypoxia requiring intubation and respiratory support. We're asked to see the patient because of recurrent atrial fibrillation. Patient was initially initiated on amiodarone with conversion to sinus rhythm. He was switched to by mouth amiodarone, but subsequently went back into atrial fibrillation. He was restarted on amiodarone drip and also Cardizem drip. He still has severe hypoxia. His echo showed an ejection fraction of 4045%. There is some suggestion that could be component of CHF. Patient has been hypotensive and septic. He is on nor epinephrine. We'll continue his amiodarone drip per overnight. If stable, will switch to by mouth amiodarone tomorrow. Overall his prognosis is guarded. 09/06/2021: This patient remains intubated. Still in atrial fibrillation with controlled ventricular response with heart rates in 82 to 100 range. Patient chest x-ray still shows picture of pneumonia and ARDS and his ABGs still show hypoxia and hypercapnia. His creatinine is 1.92. From cardiac standpoint, we can stop the amiodarone drip and start him on by mouth amiodarone 400 mg by mouth twice a day. Subsequently at times will be made to wean off Cardizem. 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 Prognosis is guarded. 09/07/2021: This patient continues to be on ventilator support with chest x-ray showing ARDS picture. Patient is also on pressors but seemed to be unless the dose. His kidney function is deteriorating. Patient remains in atrial fibrillation with fairly controlled and corresponds with heart rates between 90- 110. He is on by mouth amiodarone and also IV Cardizem. Hopefully as pulmonary status improves, his heart rate control becomes better. We'll continue current medical therapy. We'll follow 09/08/2021: This patient's remains on respiratory support. No significant improvement in pulmonary status. Patient went into renal failure and had a dialysis catheter today. From cardiac standpoint, he remains in atrial fibrillation with heart rates in the 110 range. He is on by mouth amiodarone load Small dose of Cardizem. Continue the rest of the management. Prognosis is poor. 09/09/2021: This patient's condition seemed to be worse today. His potassium is going up with acute renal failure. Patient is going to have dialysis. Patient is still requiring more pressors for blood pressure support. His tachycardic with atypical fibrillation. Chest x-ray shows pneumonia. We'll may have to switch to IV amiodarone for rate control. Overall his prognosis is guarded. Continue current measures Objective - Vital Signs Vital signs: Vital Signs Temp 98.1 F 09/09/21 04:00 Pulse 142 H 09/09/21 10:00 Resp 31 H 09/09/21 10:00 BP 104/62 09/09/21 02:00 Pulse Ox 85 L 09/09/21 10:00 Intake & Output 09/08/21 09/09/21 09/09/21 18:59 06:59 18:59 Intake Total 862.487 765.960 261.273 Output Total 192 115 30 Balance 670.487 650.960 231.273 Weight 110.5 kg 110.5 kg Intake: IV 276 276 115 .9 276 276 115 Intake, IV Titration 556.487 309.960 146.273 Amount Calcium Gluconate 1 gm In 100 Sodium Chloride 0.9% 100 ml @ 100 mls/hr IVPB ONCE ONE Rx#:[id number] Cefepime 2 gm In Sodium 100 Chloride 0.9% 100 ml @ 25 mls/hr IVPB Q12HR [facility] Rx #:[id number] Norepinephrine 32 mg In 63.004 46.273 Sodium Chloride 0.9% 218 ml @ 0.05 MCG/KG/MIN 2. 416 mls/hr IV .Q24H [facility] Rx#:[id number] propofoL 1,000 mg In 356.487 246.956 100 Empty Bag 1 bag @ Titrate IV .Q0M [facility] Rx#: [id number] Tube Feeding 30 120 Other 60 Output: Urine 192 115 30 Other: Voiding Method Indwelling Catheter Indwelling Catheter Indwelling Catheter ABP, PAP, CO, CI - Last Documented Arterial Blood Pressure 78/57 - Exam Patient is not personally examined. Information is gathered from consult and notes. For further information could be gathered from tax credit leasing consultant notes - Labs CBC & Chem 7: 09/09/21 05:32 09/09/21 05:32 Labs: Abnormal Lab Results - Last 24 Hours (Table) 11/09/1809/08/21 09/08/21 Range/Units 04:25 11:30 18:32 WBC (3.8-10.6) k/uL RBC (4.30-5.90) m/uL Hgb (13.0-17.5) gm/dL Hct (39.0-53.0) % Neutrophils # (Manual) (1.3-7.7) k/uL Lymphocytes # (Manual) (1.0-4.8) k/uL Monocytes # (Manual) (0-1.0) k/uL Metamyelocytes # (Man) (0) k/uL Myelocytes # (Manual) (0) k/uL Nucleated RBCs (0-0) /100 WBC ABG pH (7.35-7.45) ABG pCO2 (35-45) mmHg ABG pO2 (83-108) mmHg ABG HCO3 (21-25) mmol/L ABG Total CO2 (19-24) mmol/L ABG O2 Saturation (94-97) % Potassium (3.5-5.1) mmol/L BUN (9-20) mg/dL Creatinine (0.66-1.25) mg/dL Glucose (74-99) mg/dL POC Glucose (mg/dL) 125 H 145 H (75-99) mg/dL Phosphorus (2.5-4.5) mg/dL Lactate Dehydrogenase (313-618) U/L C-Reactive Protein (<1.0) mg/dL Total Protein (6.3-8.2) g/dL Albumin (3.5-5.0) g/dL Triglycerides 281.00 H (0.00-149.00) mg/dL 09/08/21 09/08/21 09/09/21 Range/Units 20:27 23:55 01:05 WBC (3.8-10.6) k/uL RBC (4.30-5.90) m/uL Hgb (13.0-17.5) gm/dL Hct (39.0-53.0) % Neutrophils # (Manual) (1.3-7.7) k/uL Lymphocytes # (Manual) (1.0-4.8) k/uL Monocytes # (Manual) (0-1.0) k/uL Metamyelocytes # (Man) (0) k/uL Myelocytes # (Manual) (0) k/uL Nucleated RBCs (0-0) /100 WBC ABG pH (7.35-7.45) ABG pCO2 (35-45) mmHg ABG pO2 (83-108) mmHg ABG HCO3 (21-25) mmol/L ABG Total CO2 (19-24) mmol/L ABG O2 Saturation (94-97) % Potassium 6.2 H* 3.4 L (3.5-5.1) mmol/L BUN (9-20) mg/dL Creatinine (0.66-1.25) mg/dL Glucose (74-99) mg/dL POC Glucose (mg/dL) 131 H (75-99) mg/dL Phosphorus (2.5-4.5) mg/dL Lactate Dehydrogenase (313-618) U/L C-Reactive Protein (<1.0) mg/dL Total Protein (6.3-8.2) g/dL Albumin (3.5-5.0) g/dL Triglycerides (0.00-149.00) mg/dL 09/09/21 09/09/21 09/09/21 Range/Units 02:05 04:51 05:32 WBC 36.6 H (3.8-10.6) k/uL RBC 3.90 L (4.30-5.90) m/uL Hgb 11.8 L (13.0-17.5) gm/dL Hct 38.0 L (39.0-53.0) % Neutrophils # (Manual) 32.90 H (1.3-7.7) k/uL Lymphocytes # (Manual) 0.37 L (1.0-4.8) k/uL Monocytes # (Manual) 1.83 H (0-1.0) k/uL Metamyelocytes # (Man) 0.73 H (0) k/uL Myelocytes # (Manual) 1.10 H (0) k/uL Nucleated RBCs 2 H (0-0) /100 WBC ABG pH 7.23 L (7.35-7.45) ABG pCO2 68 H (35-45) mmHg ABG pO2 73 L (83-108) mmHg ABG HCO3 29 H (21-25) mmol/L ABG Total CO2 31 H (19-24) mmol/L ABG O2 Saturation 92.4 L (94-97) % Potassium 6.5 H* (3.5-5.1) mmol/L BUN (9-20) mg/dL Creatinine (0.66-1.25) mg/dL Glucose (74-99) mg/dL POC Glucose (mg/dL) (75-99) mg/dL Phosphorus (2.5-4.5) mg/dL Lactate Dehydrogenase (313-618) U/L C-Reactive Protein (<1.0) mg/dL Total Protein (6.3-8.2) g/dL Albumin (3.5-5.0) g/dL Triglycerides (0.00-149.00) mg/dL 09/09/21 09/09/21 Range/Units 05:32 06:23 WBC (3.8-10.6) k/uL RBC (4.30-5.90) m/uL Hgb (13.0-17.5) gm/dL Hct (39.0-53.0) % Neutrophils # (Manual) (1.3-7.7) k/uL Lymphocytes # (Manual) (1.0-4.8) k/uL Monocytes # (Manual) (0-1.0) k/uL Metamyelocytes # (Man) (0) k/uL Myelocytes # (Manual) (0) k/uL Nucleated RBCs (0-0) /100 WBC ABG pH (7.35-7.45) ABG pCO2 (35-45) mmHg ABG pO2 (83-108) mmHg ABG HCO3 (21-25) mmol/L ABG Total CO2 (19-24) mmol/L ABG O2 Saturation (94-97) % Potassium 6.3 H* (3.5-5.1) mmol/L BUN 144 H* (9-20) mg/dL Creatinine 4.62 H (0.66-1.25) mg/dL Glucose 143 H (74-99) mg/dL POC Glucose (mg/dL) 128 H (75-99) mg/dL Phosphorus 10.3 H* (2.5-4.5) mg/dL Lactate Dehydrogenase 734 H (313-618) U/L C-Reactive Protein 8.0 H (<1.0) mg/dL Total Protein 5.4 L (6.3-8.2) g/dL Albumin 2.5 L (3.5-5.0) g/dL Triglycerides (0.00-149.00) mg/dL Microbiology - Last 24 Hours (Table) 09/05/21 15:57 Blood Culture - Preliminary Blood No Growth after 72 hours 09/05/21 15:56 Blood Culture - Preliminary Blood No Growth after 72 hours 09/06/21 03:18 Gram Stain - Final Sputum Sputum Culture - Final Pseudomonas aeruginosa Assessment and Plan (1) Acute respiratory failure due to COVID-19 Current Visit: Yes Status: Acute Code(s): U07.1 - COVID-19; J96.00 - ACUTE RESPIRATORY FAILURE, UNSP W HYPOXIA OR HYPERCAPNIA SNOMED Code(s): 658334865 (2) Hyponatremia Current Visit: Yes Status: Acute Code(s): E87.1 - HYPO-OSMOLALITY AND HYPONATREMIA SNOMED Code(s): 96347232 (3) Acute exacerbation of chronic obstructive airways disease Current Visit: No Status: Acute Code(s): J44.1 - CHRONIC OBSTRUCTIVE PULMONARY DISEASE W (ACUTE) EXACERBATION SNOMED Code(s): 712921056 (4) Diaphragmatic hernia Current Visit: No Status: Acute Code(s): K44.9 - DIAPHRAGMATIC HERNIA WITHOUT OBSTRUCTION OR GANGRENE SNOMED Code(s): 44093125 (5) Paroxysmal atrial fibrillation Current Visit: No Status: Acute Code(s): I48.0 - PAROXYSMAL ATRIAL FIBRILLATION SNOMED Code(s): 813090829 Plan: Patient is having multiple problems including acute renal failure and hyperkalemia requiring dialysis. Hypotensive requiring higher dose of vessel pressors. Heart rate is in the 1 4150 range, requiring IV amiodarone. Overall prognosis guarded and poor
[2021-09-09 12:33] LABS: Glucose,Whole Blood 150 mg/dL (75-99)
[2021-09-09] MEDS: SEVELAMER 800 MG TAB PO SCH ×2 (12:39→17:01)
--- NOTE | 2021-09-09 16:28 | P.PN ---
Subjective Progress Note Date: 09/09/21 76-year-old pleasant male with known history of COPD with suicidal dysfunction at home given with complaints of shortness of breath cough without any sputum production going on for about one and half week. Patient did did get vaccinated for Covid and found to have Covid 19 pneumonia chest x-ray did not show any significant infiltrate. Patient denied any chest pain abdominal pain, diarrhea or nausea or vomiting. Patient is on Augmentin not sure why he is taking Augmentin as an outpatient. Patient is presently on 5 L of oxygen saturating at 95% and patient was having fevers with temperature of 100.6. Patient is also hyponatremic and is on hydrochlorothiazide at home. Patient was started on Dec adron. D-dimer is within normal limits 08/31/2021 Patient is seen and evaluated in follow-up with no acute overnight issues. Patient normally wears 2 L of oxygen as needed at night in the outpatient setting and currently continues on 5 L. Discussed with nursing staff about weaning FiO2 as tolerated. Pulmonary and infectious disease following an patient is maintained on bronchodilators along with vitamin and zinc supplements and has been started on IV dexamethasone and Lovenox subcutaneous injections. Patient continues on gentle IV hydration at 75 ML per hour and will continue for now. Patient was hyponatremic at 125 and today's sodium level is 129. 09/01/2021 Patient is seen in follow-up this morning and overnight developed progressing worsening shortness of breath and currently on 15 L high flow nasal cannula. Nursing staff patient continues to remove oxygen and dropping down into the 70s and 80s oxygen saturation. Patient continues with a cough and rhonchi noted throughout on exam. Sodium level has dropped back down to 125 and will consult nephrology. Patient is extremely hard of hearing. Chest x-ray today shows interstitial and patchy left-sided infiltrates that are mildly progressed. Pulmonary and infectious disease following as well. 09/02/2021 Patient is seen in follow-up this morning with worsening respirations and difficulty in breathing and maintained on 15 L high flow along with nonrebreather and working to breathe with continued cough. Pulmonary and infectious disease following closely and patient started on Baricitinib and maintained on vitamin and zinc supplements along with Lovenox and IV dexamethasone and will continue. Patient being transitioned to Airvo with respiratory following closely as well. Discussed CODE STATUS with the patient and he wishes to remain full code. Nephrology also consulted for hyponatremia and IV fluids have been discontinued and patient is receiving a dose of IV Lasix today. 09/03/2021 Patient is seen in the ICU. Yesterday evening around 6 o'clock patient's condition has deteriorated and rapid response team was called and the patient was in A. fib with RVR and subsequently had worsening difficulty in breathing and required stat intubation with transfer to the ICU. He is currently on a ventilator. ABGs from this morning showing pH of 7.24, PCO2 of 47 and PO2 of 121 on 100% FiO2. Patient's blood pressure running on the lower side and he is on Levophed and amiodarone drip. He is sedated. 09/04/2021 Patient is seen and examined in the ICU. Patient continues to be on mechanical ventilator requiring 65% FiO2 with a PEEP of 15 saturating at low 90s. Patient continues to be on Levophed, to maintain a map of about 65. Lovenox has been discontinued and patient is started on Eliquis for anticoagulation in view of his atrial fibrillation. On 09/05/2021 Patient is seen and examined in the ICU. Patient is intubated and mechanically ventilated. Patient has been in and out of atrial fibrillation, currently A. fib with rapid RVR. He is being maintained on Cardizem drip and he is on Eliquis for anticoagulation. On reviewing the vitals blood pressure 109 x 72. Reviewed ABGs from this morning showing pH of 7.24, PCO2 54, PO2 of 59. He is on 65% FiO2 with PEEP of 15 saturating around 90%. On reviewing his labs from this morning white count of 13.1, hemoglobin 14.9, platelets 311. Sodium 130, potassium 4.9, chloride 103, bicarb 21, BUN 47, creatinine 1.53. 09/06/2021 Patient is seen and evaluated in follow-up continues to be closely monitored in the ICU with multiple medical consultations following including pulmonary, cardiology, nephrology. Patient is intubated and sedated. Patient on multiple drips including propofol for sedation, norepinephrine, Cardizem, amiodarone, IV cefepime. Patient was given a dose of IV Lasix today and is maintained on sodium bicarb tablets with nephrology following closely. Prognosis remains extremely guarded. Patient is also maintained on IV cefepime and white blood count trending down although continues to be elevated and patient has been having intermittent low-grade temps and continues to be in A. fib with RVR. Kidney functions worsening in creatinine elevated at 1.19 today. 09/07/2021 Patient is Seen and evaluated and follow-up this morning in the ICU being closely monitored with multiple medical consultations following. Patient contin ues to be intubated and sedated. Patient has been off Cardizem drip and transition to oral amiodarone with cardiology following closely. Patient continues on Eliquis for anticoagulation along with IV dexamethasone, propofol, IV cefepime, norepinephrine. Nimbex is also been discontinued. Patient's kidney functions continue to worsen and nephrology is following closely. Sodium slightly improved at 132. Potassium was 5.5 and repeat potassium was 6.1 and will correct. 09/08/2021 Patient is seen in follow up today and continues to be intubated and sedated and closely monitored in the ICU. Kidney functions have become significantly worse and will be initiating hemodialysis therapy. Nephrology following closely and vascular surgery has been consulted for dialysis cath placement. Prognosis remains guarded with multiple medical consultations following. Nursing staff reports no bowel movement in days and abdomen is soft but distended. Will add fleet enema. Urine output continues to be 15-30Ml per hour. 09/09/2021 Patient is seen in follow up this morning and is in critical condition and being closely monitored in the ICU. Patient is receiving hemodialysis and is hypotensive and tachycardic. Potassium remains elevated and being closely monitored and has been corrected multiple times with IV dextrose, calcium gluc, and IV insulin. WBC is trending up and maintained on IV cefepime. Labs: White blood count is 36.6, hemoglobin is 11.8, platelets are 389, sodium is 139, potassium is 6.3, BUN is 144, creatinine is 4.62, inflammatory markers elevated. Review of systems: unable to obtain as patient is intubated and sedated All medications have been reviewed Active Medications Acetaminophen (Acetaminophen Tab 325 Mg Tab) 650 mg PO Q6HR PRN PRN Reason: Mild Pain or Fever > 100.5 Last Admin: 09/07/21 12:02 Dose: 650 mg Documented by: Albuterol Sulfate (Albuterol Hfa Inhaler) 2 puff INHALATION RT-QID PRN PRN Reason: Shortness Of Breath Or Wheezing Albuterol Sulfate (Albuterol Hfa Inhaler) 2 puff INHALATION RT-QID [facility] Last Admin: 09/09/21 14:57 Dose: 2 puff Documented by: Albuterol/Ipratropium (Ipratropium-Albuterol 3 Ml Neb) 3 ml INHALATION RT-QID PRN PRN Reason: Shortness Of Breath Or Wheezing Amiodarone HCl (Amiodarone 200 Mg Tab) 400 mg PO BID [facility] Last Admin: 09/09/21 08:17 Dose: 400 mg Documented by: Apixaban (Apixaban 2.5 Mg Tablet) 2.5 mg PO BID [facility]; Protocol Last Admin: 09/09/21 08:19 Dose: 2.5 mg Documented by: Ascorbic Acid (Ascorbic Acid 500 Mg Tab) 500 mg PO DAILY [facility] Last Admin: 09/09/21 08:17 Dose: 500 mg Documented by: Bisacodyl (Bisacodyl 10 Mg Supp) 10 mg RECTAL DAILY PRN PRN Reason: Constipation Last Admin: 09/08/21 05:51 Dose: 10 mg Documented by: Chlorhexidine Gluconate (Chlorhexidine Gluconate 15 Ml Cup) 15 ml MUCOUS MEM BID [facility] Last Admin: 09/09/21 08:20 Dose: 15 ml Documented by: Cholecalciferol (Cholecalciferol 25 Mcg (1000 Iu) Tablet) 100 mcg PO DAILY [facility] Last Admin: 09/09/21 08:17 Dose: 100 mcg Documented by: Dexamethasone Sodium Phosphate (Dexamethasone Sod Phosphate 10 Mg/Ml 1 Ml Vial) 6 mg IVP DAILY [facility] Last Admin: 09/09/21 08:19 Dose: 6 mg Documented by: Diltiazem HCl (Diltiazem Oral 30 Mg Tab) 30 mg PO BID [facility] Last Admin: 09/09/21 08:17 Dose: 30 mg Documented by: Propofol 1,000 mg/ IV Solution 100 mls @ 0 mls/hr IV .Q0M [facility]; Protocol Last Admin: 09/09/21 12:39 Dose: 40 mcg/kg/min, 26.52 mls/hr Documented by: Norepinephrine Bitartrate 32 (mg/ Sodium Chloride) 250 mls @ 2.416 mls/hr IV .Q24H [facility]; Protocol Last Titration: 09/09/21 11:30 Dose: 0.25 mcg/kg/min, 12.082 mls/hr Documented by: Cefepime HCl 1 gm/ Sodium (Chloride) 50 mls @ 12.5 mls/hr IVPB Q12HR [facility] Last Admin: 09/09/21 08:33 Dose: 12.5 mls/hr Documented by: Insulin Aspart (Insulin Aspart (Novolog) 100 Unit/Ml Vial) 0 unit SQ Q6H [facility]; Protocol Last Admin: 09/09/21 12:39 Dose: 2 unit Documented by: Pantoprazole Sodium (Pantoprazole 40 Mg/10 Ml Vial) 40 mg IVP DAILY [facility] Last Admin: 09/09/21 08:16 Dose: 40 mg Documented by: Pravastatin Sodium (Pravastatin Sodium 20 Mg Tab) 10 mg PO HS [facility] Last Admin: 09/08/21 19:55 Dose: 10 mg Documented by: Sevelamer Carbonate (Sevelamer 800 Mg Tab) 800 mg PO TID-W/MEALS [facility] Last Admin: 09/09/21 12:39 Dose: 800 mg Documented by: Sodium Bicarbonate (Sodium Bicarbonate Tab 650 Mg Tab) 650 mg PO BID [facility] Last Admin: 09/09/21 08:17 Dose: 650 mg Documented by: Zinc Sulfate (Zinc Sulfate 220 Mg Cap) 220 mg PO DAILY [facility] Last Admin: 09/09/21 08:17 Dose: 220 mg Documented by: PHYSICAL EXAMINATION: GENERAL: intubated in the ICU, and sedated. Temp is 98.4F, pulse is 131, respirations are 27, blood pressure is 96/57, oxygen saturation is 89% on 100% FiO2 mechanical vent HEENT: Pupils are round . EOMI. No scleral icterus. No conjunctival pallor. OG tube in place. CARDIOVASCULAR: S1 and S2 muffled, irregular PULMONARY: Diminished breath sounds with scattered coarse rhonchi and crackles noted bilaterally ABDOMEN: Soft, nontender, nondistended, normoactive bowel sounds. No palpable organomegaly. MUSCULOSKELETAL: No joint swelling or deformity. EXTREMITIES: No cyanosis, clubbing, or pedal edema. Muscle wasting noted with some generalized lower extremity edema noted NEUROLOGICAL: sedated SKIN: No rashes. Assessment and plan: -Covid 19 pneumonia -Acute on chronic Hypoxic respiratory failure secondary to above requiring mechanical ventilation -Hyponatremia -Hyperkalemia -Acute kidney injury with oliguria, now requiring hemodialysis -Atrial fibrillation with RVR -History of paroxysmal atrial fibrillation -Chronic hypercapnic respiratory failure secondary to COPD with mild acute exacerbation -Hypertension -Hyperlipidemia -Muscle wasting -Benign prostatic hypertrophy -DVT prophylaxis: Lovenox -GI prophylaxis -Full code Plan: Recommend to continue with current medications and management. Infectious disease, cardiology, nephrology, and pulmonary following. Patient continues on IV antibiotics in the form of cefepime Patient continues on mechanical vent intubated and sedated and cardiology following and continuing on oral amiodarone and oral Cardizem being started . Patient continues on propofol for sedation along with IV dexamethasone and norepinephrine. Patient also continues on vitamin and zinc supplements along with oral anticoagulant with Eliquis. Nephrology also following closely and maintain on sodium bicarb tablets as kidney functions continue to worsen. Patient is receiving hemodialysis again today. Potassium continues to be critically elevated and have been correcting. Will repeat labs and continue to monitor closely. Due to multiple complex medical issues, Prognosis is extremely poor and guarded. Objective - Vital Signs Vital signs: Vital Signs Temp 98.1 F 09/09/21 04:00 Pulse 144 H 09/09/21 07:30 Resp 30 H 09/09/21 07:30 BP 104/62 09/09/21 02:00 Pulse Ox 89 L 09/09/21 07:30 Intake & Output 09/08/21 09/09/21 09/09/21 18:59 06:59 18:59 Intake Total 862.487 765.960 100 Output Total 192 115 Balance 670.487 650.960 100 Weight 110.5 kg 110.5 kg Intake: IV 276 276 .9 276 276 Intake, IV Titration 556.487 309.960 100 Amount Calcium Gluconate 1 gm In 100 Sodium Chloride 0.9% 100 ml @ 100 mls/hr IVPB ONCE ONE Rx#:[id number] Cefepime 2 gm In Sodium 100 Chloride 0.9% 100 ml @ 25 mls/hr IVPB Q12HR [facility] Rx #:[id number] Norepinephrine 32 mg In 63.004 Sodium Chloride 0.9% 218 ml @ 0.05 MCG/KG/MIN 2. 416 mls/hr IV .Q24H [facility] Rx#:[id number] propofoL 1,000 mg In 356.487 246.956 100 Empty Bag 1 bag @ Titrate IV .Q0M [facility] Rx#: [id number] Tube Feeding 30 120 Other 60 Output: Urine 192 115 Other: Voiding Method Indwelling Catheter Indwelling Catheter ABP, PAP, CO, CI - Last Documented Arterial Blood Pressure 107/58 - Labs CBC & Chem 7: 09/09/21 05:32 09/09/21 05:32 Labs: Abnormal Lab Results - Last 24 Hours (Table) 09/08/21 09/08/21 09/08/21 Range/Units 04:25 09:58 11:30 WBC (3.8-10.6) k/uL RBC (4.30-5.90) m/uL Hgb (13.0-17.5) gm/dL Hct (39.0-53.0) % ABG pH (7.35-7.45) ABG pCO2 (35-45) mmHg ABG pO2 (83-108) mmHg ABG HCO3 (21-25) mmol/L ABG Total CO2 (19-24) mmol/L ABG O2 Saturation (94-97) % Potassium 6.0 H (3.5-5.1) mmol/L BUN (9-20) mg/dL Creatinine (0.66-1.25) mg/dL Glucose (74-99) mg/dL POC Glucose (mg/dL) 125 H (75-99) mg/dL Phosphorus (2.5-4.5) mg/dL Lactate Dehydrogenase (313-618) U/L Total Protein (6.3-8.2) g/dL Albumin (3.5-5.0) g/dL Triglycerides 281.00 H (0.00-149.00) mg/dL 09/08/21 09/08/21 09/08/21 Range/Units 18:32 20:27 23:55 WBC (3.8-10.6) k/uL RBC (4.30-5.90) m/uL Hgb (13.0-17.5) gm/dL Hct (39.0-53.0) % ABG pH (7.35-7.45) ABG pCO2 (35-45) mmHg ABG pO2 (83-108) mmHg ABG HCO3 (21-25) mmol/L ABG Total CO2 (19-24) mmol/L ABG O2 Saturation (94-97) % Potassium 6.2 H* (3.5-5.1) mmol/L BUN (9-20) mg/dL Creatinine (0.66-1.25) mg/dL Glucose (74-99) mg/dL POC Glucose (mg/dL) 145 H 131 H (75-99) mg/dL Phosphorus (2.5-4.5) mg/dL Lactate Dehydrogenase (313-618) U/L Total Protein (6.3-8.2) g/dL Albumin (3.5-5.0) g/dL Triglycerides (0.00-149.00) mg/dL 09/09/21 09/09/21 09/09/21 Range/Units 01:05 02:05 04:51 WBC (3.8-10.6) k/uL RBC (4.30-5.90) m/uL Hgb (13.0-17.5) gm/dL Hct (39.0-53.0) % ABG pH 7.23 L (7.35-7.45) ABG pCO2 68 H (35-45) mmHg ABG pO2 73 L (83-108) mmHg ABG HCO3 29 H (21-25) mmol/L ABG Total CO2 31 H (19-24) mmol/L ABG O2 Saturation 92.4 L (94-97) % Potassium 3.4 L 6.5 H* (3.5-5.1) mmol/L BUN (9-20) mg/dL Creatinine (0.66-1.25) mg/dL Glucose (74-99) mg/dL POC Glucose (mg/dL) (75-99) mg/dL Phosphorus (2.5-4.5) mg/dL Lactate Dehydrogenase (313-618) U/L Total Protein (6.3-8.2) g/dL Albumin (3.5-5.0) g/dL Triglycerides (0.00-149.00) mg/dL 09/09/21 09/09/21 09/09/21 Range/Units 05:32 05:32 06:23 WBC 37.3 H (3.8-10.6) k/uL RBC 3.90 L (4.30-5.90) m/uL Hgb 11.8 L (13.0-17.5) gm/dL Hct 38.0 L (39.0-53.0) % ABG pH (7.35-7.45) ABG pCO2 (35-45) mmHg ABG pO2 (83-108) mmHg ABG HCO3 (21-25) mmol/L ABG Total CO2 (19-24) mmol/L ABG O2 Saturation (94-97) % Potassium 6.3 H* (3.5-5.1) mmol/L BUN 144 H* (9-20) mg/dL Creatinine 4.62 H (0.66-1.25) mg/dL Glucose 143 H (74-99) mg/dL POC Glucose (mg/dL) 128 H (75-99) mg/dL Phosphorus 10.3 H* (2.5-4.5) mg/dL Lactate Dehydrogenase 734 H (313-618) U/L Total Protein 5.4 L (6.3-8.2) g/dL Albumin 2.5 L (3.5-5.0) g/dL Triglycerides (0.00-149.00) mg/dL Microbiology - Last 24 Hours (Table) 09/05/21 15:57 Blood Culture - Preliminary Blood No Growth after 72 hours 09/05/21 15:56 Blood Culture - Preliminary Blood No Growth after 72 hours 09/06/21 03:18 Gram Stain - Final Sputum Sputum Culture - Final Pseudomonas aeruginosa
[2021-09-09] MEDS ORDERED: SODIUM CHLORIDE 0.9% 150 ML with VASOPRESSIN 60 UNIT IV SCH ×2 (16:30)
[2021-09-09 17:08] LABS: Glucose,Whole Blood 150 mg/dL (75-99)
--- NOTE | 2021-09-09 17:31 | PN ---
PROGRESS NOTE DATE OF SERVICE: 09/09/2021 REASON FOR FOLLOWUP: Pneumonia. INTERVAL HISTORY: The patient is afebrile. The patient remains intubated on the vent. FiO2 is currently 100%. No significant purulent secretions in the ET, diarrhea or any other changes reported by the nursing staff. PHYSICAL EXAMINATION: Blood pressure 98/66, pulse of 131, temperature 98.1. He is 88% on 100% FiO2. General description is an elderly male intubated on the vent. Respiratory system: Unlabored breathing, decreased intensity of breath sounds. No wheeze. Heart S1, S2. Regular rate and rhythm. Abdomen soft, no tenderness. LABS: Hemoglobin is 11.3. White count is up to 36.6, creatinine is 4.62, potassium 6.3. Liver enzymes are normal. DIAGNOSTIC IMPRESSION AND PLAN: Patient with acute respiratory failure which is multifactorial in this patient with acute COVID-19 pneumonia to begin with, followed by worsening respiratory status and did have evidence of secondary bacterial pneumonia with Pseudomonas. Patient is covered with cefepime. He did have elevated white count, but no other obvious focus of infection; could be related to the steroids the patient is on. Will repeat his cultures and inflammatory markers and monitor his clinical course closely. Prognosis remains guarded. MMODL / IJN: [id number] /
[2021-09-09] MEDS ORDERED: SODIUM ZIRCONIUM CYCLOSILICATE 10 GM PACKET PO ONE (19:21)
[2021-09-09] MEDS ORDERED: DEXTROSE 5% IN WATER 1,000 ML with SODIUM BICARB (1 MEQ/ML) 150 ML IV ONE (19:38)
[2021-09-09] MEDS: PRAVASTATIN SODIUM 20 MG TAB PO SCH (20:38)
[2021-09-09] MEDS ORDERED: LORazepam 2 MG/ML INJ IV PRN (21:52)
[2021-09-09] MEDS ORDERED: MORPHINE SULFATE 4 MG/ML SYRINGE IV PRN (21:52)
[2021-09-09 21:58] VITALS: TEMP 96.5
[2021-09-09 22:08] VITALS: BP 72/61; PULSE 147; RESP 28
--- NOTE | 2021-09-10 04:17 | P.DS ---
Providers Date of admission: 08/30/21 07:51 Expected date of discharge: 09/10/21 Attending physician: Lu Avendano Consults: 08/30/21 07:57 Consult Physician Routine Consulting Provider: Brian William Consult Reason/Comments: COVID+ Do you want consulting provider notified?: Yes Consult Physician Routine Consulting Provider: Jessica Fernando Consult Reason/Comments: COVID+ Do you want consulting provider notified?: Yes 09/01/21 13:09 Consult Physician Urgent Consulting Provider: Linda Kan Consult Reason/Comments: hyponatremia Do you want consulting provider notified?: Yes 09/08/21 06:35 Consult Physician Urgent Consulting Provider: Ethan Watters Consult Reason/Comments: Dialysis catheter placement Do you want consulting provider notified?: Yes, Notify in am [facility] Course: Final Diagnosis -Covid 19 pneumonia -Acute on chronic Hypoxic respiratory failure secondary to above requiring mechanical ventilation -Hyponatremia -Hyperkalemia -Acute kidney injury with oliguria, requiring hemodialysis -Atrial fibrillation with RVR -History of paroxysmal atrial fibrillation -Chronic hypercapnic respiratory failure secondary to COPD with mild acute exacerbation -Hypertension -Hyperlipidemia -Muscle wasting -Benign prostatic hypertrophy -DVT prophylaxis: Lovenox -GI prophylaxis -No code Preliminary cause of Covid 19 pneumonia Discharge disposition Patient has . According to nursing documentation time of is 2224 on 09/09/2021 Hospital course 76-year-old pleasant male with known history of COPD with suicidal dysfunction at home given with complaints of shortness of breath cough without any sputum production going on for about one and half week. Patient did did get vaccinated for Covid and found to have Covid 19 pneumonia chest x-ray did not show any significant infiltrate. Patient denied any chest pain abdominal pain, diarrhea or nausea or vomiting. Patient is on Augmentin not sure why he is taking Augmentin as an outpatient. Patient is presently on 5 L of oxygen saturating at 95% and patient was having fevers with temperature of 100.6. Patient is also hyponatremic and is on hydrochlorothiazide at home. Patient was started on Decadron. D-dimer is within normal limits. Patient continued to be on mechanical vent and intubated and was started on hemodialysis. Prognosis remained quite guarded and poor. 09/09/2021 Patient clinically continued to deteriorate and requiring hemodialysis and continued to decline. Family had decided to make patient comfort measures and shortly after. Please refer to previous documentation for further HPI. Patient Condition at Discharge: Poor Plan - Discharge Summary Discharge Rx Participant: No New Discharge Prescriptions: No Action Tamsulosin HCl [Flomax] 0.8 mg PO DAILY Meclizine [Antivert] 25 mg PO TID Losartan Potassium [Cozaar] 25 mg PO DAILY Fexofenadine HCl [Melody Allergy] 180 mg PO DAILY Indapamide [Lozol] 1.25 mg PO DAILY Fluticasone/Umeclidin/Vilanter [Trelegy Ellipta 100-62.5-25] 1 puff INHALATIO N RT-DAILY Metoprolol Tartrate [Lopressor] 37.5 mg PO BID Albuterol Sulfate [Ventolin HFA] 2 puff INHALATION RT-Q6H PRN PRN Reason: Shortness Of Breath guaiFENesin [Mucinex] 1,200 mg PO BID PRN PRN Reason: Cold Symptoms predniSONE See Taper PO DAILY Pravastatin Sodium [Pravachol] 10 mg PO HS Finasteride [Proscar] 5 mg PO DAILY DULoxetine HCL [Cymbalta] 30 mg PO DAILY Amoxic-Pot Clav 875-125Mg [Augmentin 875-125] 1 tab PO Q12HR predniSONE 10 mg PO DIRECTED Discharge Medication List Meclizine [Antivert] 25 mg PO TID 11/18/17 [History] Tamsulosin HCl [Flomax] 0.8 mg PO DAILY 11/18/17 [History] Losartan Potassium [Cozaar] 25 mg PO DAILY 04/11/18 [History] Fexofenadine HCl [Melody Allergy] 180 mg PO DAILY 12/13/18 [History] Fluticasone/Umeclidin/Vilanter [Trelegy Ellipta 100-62.5-25] 1 puff INHALATION RT-DAILY 03/21/19 [History] Indapamide [Lozol] 1.25 mg PO DAILY 03/21/19 [History] Metoprolol Tartrate [Lopressor] 37.5 mg PO BID 03/21/19 [History] Albuterol Sulfate [Ventolin HFA] 2 puff INHALATION RT-Q6H PRN 08/30/21 [History] Amoxic-Pot Clav 875-125Mg [Augmentin 875-125] 1 tab PO Q12HR 08/30/21 [History] DULoxetine HCL [Cymbalta] 30 mg PO DAILY 08/30/21 [History] Finasteride [Proscar] 5 mg PO DAILY 08/30/21 [History] Pravastatin Sodium [Pravachol] 10 mg PO HS 08/30/21 [History] guaiFENesin [Mucinex] 1,200 mg PO BID PRN 08/30/21 [History] predniSONE 10 mg PO DIRECTED 08/30/21 [History] predniSONE See Taper PO DAILY 08/30/21 [History] Follow up Appointment(s)/Referral(s): Quinton Gary DO [Primary Care Provider] - 1-2 days Discharge Disposition: - Preliminary Cause of Preliminary Cause of : covid 19 pneumonia
== END 2021-09-09 23:30 | disposition expired | DRG 207 ==
LOC: EC 06:24 → 4SSUR 07:51 → 2SICU 09-02 18:18
PROVIDERS: ADMIT Hospitalist; ATTEND Hospitalist
PROC: XW0DXM6 Introduction of Baricitinib into Mouth and Pharynx, External Approach, New Technology Group 6 (ICD-10-PCS; principal; 2021-09-01)
PROC: 5A1955Z Respiratory Ventilation, Greater than 96 Consecutive Hours (ICD-10-PCS; 2021-09-02)
PROC: 0BH17EZ Insertion of Endotracheal Airway into Trachea, Via Natural or Artificial Opening (ICD-10-PCS; 2021-09-02)
PROC: 03HY32Z Insertion of Monitoring Device into Upper Artery, Percutaneous Approach (ICD-10-PCS; 2021-09-03)
PROC: 4A133B1 Monitoring of Arterial Pressure, Peripheral, Percutaneous Approach (ICD-10-PCS; 2021-09-03)
PROC: 4A133J1 Monitoring of Arterial Pulse, Peripheral, Percutaneous Approach (ICD-10-PCS; 2021-09-03)
PROC: 02HV33Z Insertion of Infusion Device into Superior Vena Cava, Percutaneous Approach (ICD-10-PCS; 2021-09-03)
PROC: 06HY33Z Insertion of Infusion Device into Lower Vein, Percutaneous Approach (ICD-10-PCS; 2021-09-08)
PROC: 5A1D70Z Performance of Urinary Filtration, Intermittent, Less than 6 Hours Per Day (ICD-10-PCS; 2021-09-08)
DX: U07.1 COVID-19 (principal); A41.9 Sepsis, unspecified organism; J96.21 Acute and chronic respiratory failure with hypoxia; J96.22 Acute and chronic respiratory failure with hypercapnia; R65.21 Severe sepsis with septic shock; Z51.5 Encounter for palliative care; Z66 Do not resuscitate; N17.0 Acute kidney failure with tubular necrosis; J12.82 Pneumonia due to coronavirus disease 2019; J15.1 Pneumonia due to Pseudomonas; E22.2 Syndrome of inappropriate secretion of antidiuretic hormone; J44.1 Chronic obstructive pulmonary disease with (acute) exacerbation; I42.9 Cardiomyopathy, unspecified; E87.2 Acidosis; G47.33 Obstructive sleep apnea (adult) (pediatric); H26.9 Unspecified cataract; E78.5 Hyperlipidemia, unspecified; E83.39 Other disorders of phosphorus metabolism; E86.1 Hypovolemia; N40.0 Benign prostatic hyperplasia without lower urinary tract symptoms; Z87.891 Personal history of nicotine dependence; Z80.3 Family history of malignant neoplasm of breast; Z79.899 Other long term (current) drug therapy; Z79.52 Long term (current) use of systemic steroids; Z79.01 Long term (current) use of anticoagulants; Z99.81 Dependence on supplemental oxygen; K44.9 Diaphragmatic hernia without obstruction or gangrene; M62.50 Muscle wasting and atrophy, not elsewhere classified, unspecified site; N18.9 Chronic kidney disease, unspecified; J98.4 Other disorders of lung; E87.70 Fluid overload, unspecified; F41.9 Anxiety disorder, unspecified; H91.93 Unspecified hearing loss, bilateral; I08.1 Rheumatic disorders of both mitral and tricuspid valves; I12.9 Hypertensive chronic kidney disease with stage 1 through stage 4 chronic kidney disease, or unspecified chronic kidney disease; I48.0 Paroxysmal atrial fibrillation; E87.5 Hyperkalemia; H81.09 Meniere's disease, unspecified ear
CPT/HCPCS: 36415; 36600; 71045; 71046; 80048; 80053; 80061; 81001; 82306; 82728; 82805; 83036; 83605; 83615; 83735; 83935; 84100; 84132; 84145; 84443; 84478; 84484; 85025; 85379; 85610; 85730; 86140; 86706; 86708; 87040; 87070; 87077; 87186; 87205; 87340; 87635; 90935; 93005; 93306; 94002; 94003; 94640; 96374; 99285